=== PATIENT | male | born 1960 | race Caucasian/White ===

== ENCOUNTER 2022-10-13 13:00 | Outpatient (OUT) | payer BC, SELFPAY | END 2022-10-13 13:01 | disposition home or self-care (01) | LOC: PST 10-21 18:45 | PROVIDERS: PCP Family Medicine; Visit Provider Surgery | DX: Z01.818 Encounter for other preprocedural examination (principal); Z86.010 Personal history of colon polyps ==

== ENCOUNTER 2022-10-20 07:53 | Day surgery (SDC) | payer BC, SELFPAY ==
--- NOTE | 2022-10-20 | OP_ITS ---
OPERATION DATE: ??10/20/2022 PREOPERATIVE DIAGNOSIS:? Personal history of colon polyps. POSTOPERATIVE DIAGNOSIS:? Ascending and sigmoid colon polyps. PROCEDURE:? Colonoscopy to cecum with cold snare and hot snare polypectomy, each x1. SURGEON:? Satnam Capps M.D. ANESTHESIA:? Monitored anesthesia care. ESTIMATED BLOOD LOSS:? Less than 1 mL. INDICATIONS AND CONSENT:? 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 He was noted to have a recurrence of a small polyp one year ago, and now presents for surveillance colonoscopy.? Indications, risks, benefits, alternatives of proceeding with colonoscopy were explained extensively to the patient, including the risks of bleeding, colon perforation or anesthetic complications.? All of his questions were answered.? Informed consent was obtained. PROCEDURE:? Patient brought to the operating room, placed in the left lateral decubitus position.? Monitored anesthesia care was provided.? Rectal exam was performed which showed no masses or blood.? The scope was inserted into the anal canal.? Under direct visualization was advanced.? It was advanced to the cecum where cecal markings were clearly identified.? There was noted to be a good prep.? Upon withdrawal of the scope, mucosal surfaces were carefully examined.? Within the ascending colon, there was noted to be a 3 mm sessile polyp that was removed with cold snare with good hemostasis.? It appeared to be sucked up in the scoped; however, it was not retrieved.? Upon withdrawal of the scope, mucosal surfaces were carefully examined.? There were rare sigmoid diverticula.? Within the distal sigmoid, there was noted to be a 5 mm sessile polyp that was removed with hot snare with electrocautery with good hemostasis.? This polyp was retrieved.? Distal to that, at the area of the rectosigmoid junction, the tattooing could be seen and there was no evidence of recurrent polyps in that area.? The scope was retroflexed in the anal canal.? There was no significant hemorrhoidal disease.? The scope was then withdrawn.? Patient tolerated procedure well, was sent to recovery room in good condition. Follow up colonoscopy will likely be in three years, but will depend on pathology results. CC:? Patient?s family physician NELLI
[2022-10-20 08:12] VITALS: BP 129/62; PULSE 67; RESP 18; TEMP 36; O2SAT 96
[2022-10-20] MEDS: LACTATED RINGER'S SOLUTION 1,000 ML 50 ML IV (09:18)
[2022-10-20 09:47] VITALS: BP 126/75; PULSE 64; RESP 18; TEMP 36.2; O2SAT 99
[2022-10-20 10:02] VITALS: BP 137/67; PULSE 67; RESP 16; O2SAT 96
[2022-10-20 10:17] VITALS: BP 124/69; PULSE 69; RESP 16; O2SAT 98
== END 2022-10-20 10:17 | disposition home or self-care (01) ==
PROVIDERS: PCP Family Medicine; Visit Provider Surgery
PROC: (CPT 45385; principal; 2022-10-20 10:00)
DX: K63.5 Polyp of colon (principal); Z86.010 Personal history of colon polyps; I48.91 Unspecified atrial fibrillation; Z79.01 Long term (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; I10 Essential (primary) hypertension; E66.01 Morbid (severe) obesity due to excess calories; G47.30 Sleep apnea, unspecified; Z80.0 Family history of malignant neoplasm of digestive organs; Z79.84 Long term (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 oral hypoglycemic drugs; Z87.891 Personal history of nicotine dependence; Z68.35 Body mass index [BMI] 35.0-35.9, adult
CPT/HCPCS: 45385; 88305; J2704

== ENCOUNTER 2023-02-12 08:41 | Outpatient (OUT) | payer BC, SELFPAY ==
[2023-02-12 10:32] LABS: Estimated Average Glucose 134 mg/dL; Glycohemoglobin A1C 6.3 % (4.5-6.2)
== END 2023-02-12 08:42 | disposition home or self-care (01) ==
LOC: LAB 08:41
PROVIDERS: PCP Family Medicine; Visit Provider Family Medicine
DX: E11.65 Type 2 diabetes mellitus with hyperglycemia (principal)
CPT/HCPCS: 36415; 83036

== ENCOUNTER 2023-08-27 07:44 | Outpatient (OUT) | payer BC, SELFPAY ==
--- OUTSIDE RECORDS SUMMARY | 2023-08-27 07:47 | XMS_ITS | CCD ---
Author Organization [facility] Care Team Providers Care Hospice Rn Name Role Phone UNKNOWN, PROVIDER Admitting Unavailable UNKNOWN, PROVIDER Attending Unavailable MICHAEL SPANGLER Referring Unavailable CRISSERELidna, MICHAEL Primary Care Unavailable Donavon Morales Unavailable [phone] Michael Spangler Primary Care Provider CRYS, MICHAEL Primary Care Physician Donavon Morales Unavailable [phone] Michael Spangler Primary Care Provider SHAIKH Selwyn MERCEDES Admitting Unavailable SHAIKH MERCEDES H Attending Unavailable NADERELinda, DR MICHAEL Gregory Primary Care Unavailable NILL, DR OCAMPO Admitting Unavailable NILL, DR OCAMPO Attending Unavailable NADERER, DR MICHAEL Gregory Primary Care Unavailable NILL, DR OCAMPO Admitting Unavailable NILL, DR OCAMPO Attending Unavailable NADERER, DR MICHAEL Gregory Primary Care Unavailable NILL, DR OCAMPO Consulting Unavailable TRUDY ARREDONDO Consulting Unavailable RADHA CASTANO Consulting Unavailable NILL, DR OCAMPO Admitting Unavailable NILL, DR OCAMPO Attending Unavailable NADERER, DR MICHAEL Gregory Primary Care Unavailable NADERER, DR MICHAEL Gregory Admitting Unavailable NADERER, DR MICHAEL Gregory Attending Unavailable NADERER, DR MICHAEL Gregory Primary Care Unavailable NADERER, DR MICHAEL Gregory Consulting Unavailable MAGO, H Admitting Unavailable MAGO, SHAIKH Selwyn Attending Unavailable NADERER, DR MICHAEL Gregory Primary Care Unavailable WEST, DR EMBER Brambila Consulting Unavailable LUNDBERGCLAUDIO Consulting Unavailable MAGO, H Consulting Unavailable NADERER, DR MICHAEL Gregory Admitting Unavailable NADERER, DR MICHAEL Gregory Attending Unavailable NADERER, DR MICHAEL Gregory Primary Care Unavailable NADERER, DR MICHAEL Gregory Consulting Unavailable Donavon Morales Unavailable Michael Spangler Primary Care Provider BLAYNE GUERIN Attending Unavailable Terrence CAPPS Attending Unavailable Terrence CAPPS Attending Unavailable Terrence CAPPS Attending Unavailable Donavon Morales MD Unavailable [phone] MICHAEL SPANGLER Primary Care Unavailable JESSICA WINTER Attending Unavailable MICHAEL SPANGLER Primary Care Unavailable Michael Spangler Primary Care Provider MICHAEL SPANGLER Attending Unavailable RADHA BUTLER Attending Unavailable Allergies Allergy Classification Reported Allergen(s) Allergy Type Date of Onset Reaction(s) Facility (2 sources) Penicillins; 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: [PENICILLINS] Drug allergy (disorder) 8 [facility] Repository (5 sources) Penicillin; 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: [penicillin] Drug Allergy 9 Unknown (qualifier value) General Surgery K[facility] Medications Current Medications Medication Drug Class(es) Dates Sig (Normalized) Sig (Original) apixaban 5 mg oral tablet (20 sources) Factor Xa Inhibitor Start: 08-23-2022 End: 08-08-2023 take 1 tablet by mouth twice daily ELIQUIS 5 mg tab(s) take 1 tablet by mouth twice a day 180 tablet 3 08/08/2023 Active Start: 09-03-2020 End: 09-21-2021 take 1 tablet by mouth twice daily ELIQUIS 5 mg tab(s) TAKE 1 TABLET BY MOUTH TWICE A DAY 180 tablet 3 09/21/2021 Active Comment on above: Take 1 tablet by bryon th twice daily. TAKE 1 TABLET BY BRYON TH TWICE A DAY cholecalciferol 0.05 mg oral tablet (17 sources) Vitamin D take 1 tablet by mouth once daily cholecalciferol (VITAMIN D3) 50 mcg (2,000 unit) tablet Take 2,000 Units by mouth once daily. 0 Active Comment on above: Take 2,000 Units by mouth once daily. hydrOXYzine hydrochloride 25 mg oral tablet (3 sources) Antihistamine take 1 tablet by mouth every six hours as needed hydrOXYzine HCl (ATARAX) 25 mg tablet Take 25 mg by mouth four times a day as needed. 0 Active Comment on above: Take 25 mg by mouth four times a day as needed. lisinopril 20 mg oral tablet (19 sources) Angiotensin Converting Enzyme Inhibitor Start: 021 take 1 tablet by mouth twice daily lisinopril 20 mg Tab TAKE 1 TABLET BY MOUTH TWICE A DAY Start Date: 09/03/20 Status: Ordered Comment on above: Take 20 mg by mouth twice daily. metFORMIN hydrochloride 500 mg oral tablet (5 sources) Biguanide take 1 tablet by mouth twice daily at mealtime metFORMIN (GLUCOPHAGE) 500 mg tablet Take 500 mg by mouth two times a day with meals. 0 Active take 1 tablet by bryon th once daily at breakfast metFORMIN (GLUCOPHAGE) 500 mg tablet Jayson e 500 mg by mouth daily with breakfast. 0 Active Comment on above: Take 500 mg by mouth daily with breakfast. Take 500 mg by mouth two times a day with meals. 24 hr metoprolol succinate 25 mg extended release oral tablet (20 sources) beta-Adrenergic Bhavani Start: 01-17-2023 End: 01-17-2024 take 1 tablet by mouth twice daily metoprolol succinate ER (TOPROL XL) 25 mg 24 hr tablet Take 1 tablet by mouth two times a day. 180 tablet 3 01/17/2023 01/17/2024 Active Start: 01-13-2021 End: 01-14-2023 take 1 tablet by mouth twice daily metoprolol succinate ER (TOPROL XL) 25 mg 24 hr tablet TAKE 1 TABLET BY MOUTH TWICE A DAY 180 tablet 3 01/08/2022 01/14/2023 Discontinued Start: 09-03-2020 take 1 tablet by bryon once daily metoprolol 25 mg ER Tab 25 mg = 1 tab(s), Oral, Daily, # 30 tab(s), Refills(s) 0 Start Date: 09/03/20 Status: Ordered Comment on above: Take 1 tablet by bryon th twice daily. TAKE 1 TABLET BY BRYON TH TWICE A DAY Take 1 tablet by bryon th two times a day. OZEMPIC 1 mg/dose (4 mg/3 mL) pen (3 sources) Start: 02-14-2023 OZEMPIC 1 mg/dose (4 mg/3 mL) pen one time a week. 0 02/14/2023 Active Comment on above: one time a week. Vitamin D3 2000 intl units oral tablet (2 sources) Start: 09-03-2020 take 1 tablet by mouth once daily Vitamin D3 2000 intl units oral tablet TAKE 1 TABLET BY MOUTH EVERY DAY Start Date: 09/03/20 Status: Ordered Completed/Discontinued Medications Medication Drug Class(es) Dates Sig (Normalized) Sig (Original) pantoprazole 40 mg delayed release oral tablet (1 source) Proton Pump Inhibitor Start: 03-20-2021 End: 06-23-2021 take 1 tablet by mouth once daily, then take 6 tablets by mouth in the morning pantoprazole DR (PROTONIX) 40 mg tablet Take 1 tablet by mouth DAILY (6 AM). 30 tablet 0 03/20/2021 06/23/2021 Discontinued (Course of therapy completed) Comment on above: Take 1 tablet by bryon th DAILY (6 AM). perflutren lipid microspheres 1.3 mL in NaCl (PF) 0.9% 10 mL injection (DEFINITY) (20 sources) Start: 06-23-2021 End: 03-11-2022 perflutren lipid microspheres 1.3 mL in NaCl (PF) 0.9% 10 mL injection (DEFINITY) Start: 06-23-2021 End: 09-22-2022 perflutren lipid microsphere s 1.3 mL in NaCl (PF) 0.9% 10 mL injection (DEFINITY) Start: 03-19-2021 End: 03-11-2022 perflutren lipid microsphere s 1.3 mL in NaCl (PF) 0.9% 10 mL injection (DEFINITY) Start: 03-19-2021 End: 06-18-2022 perflutren lipid microsphere s 1.3 mL in NaCl (PF) 0.9% 10 mL injection (DEFINITY) Start: 12-05-2020 End: 06-23-2021 perflutren lipid microsphere s 1.3 mL in NaCl (PF) 0.9% 10 mL injection (DEFINITY) Start: 06-03-2020 End: 06-23-2021 perflutren lipid microsphere s 1.3 mL in NaCl (PF) 0.9% 10 mL injection (DEFINITY) 125 ml sodium chloride 9 mg/ ml prefilled syringe (20 sources) Start: 06-03-2020 End: 09-22-2022 sodium chloride 0.9 % (flush ) 10 mL (BD POSIFLUSH) Problems Active Problems Problem Classification Problem Date Documented Date Episodic/Chronic Cardiac dysrhythmias (20 sources) Atrial fibrillation; 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: [Unspecified atrial fibrillation] Onset: 08-14-2018 08-17-2018 Chronic Diabetes mellitus without complication (4 sources) Prediabetes; 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: [PREDIABETES] Onset: 02-16-2022 Episodic Essential hypertension (2 sources) Essential (primary) hypertension; 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: [Essential hypertension] Onset: 10-12-2021 03-08-2023 Chronic Nutritional deficiencies (1 source) Vitamin D deficiency, unspecified; 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: [VITAMIN D DEFICIENCY UNSPECIFIED] Onset: 08-20-2021 Chronic Other aftercare (3 sources) Long-term current use of anticoagulant; 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: [retirement (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] Onset: 09-01-2021 Episodic Other and ill-defined heart disease (18 sources) Thrombus of left atrium; 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: [Intracardiac thrombosis, not elsewhere classified] Onset: 03-04-2018 11-03-2018 Chronic Other and unspecified benign neoplasm (2 sources) Benign neoplasm of colon; 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: [Benign neoplasm of colon, unspecified] Onset: 09-01-2021 Episodic Other and unspecified benign neoplasm (2 sources) Adenomatous polyp of colon 10-07-2020 Episodic Other and unspecified benign neoplasm (2 sources) Benign neoplasm of ascending colon 10-07-2020 Episodic Other and unspecified benign neoplasm (2 sources) Benign neoplasm of descending colon 10-07-2020 Episodic Other nutritional; endocrine; and metabolic disorders (2 sources) Body mass index 30+ - obesity 09-03-2020 Chronic Residual codes; unclassified (17 sources) Sleep apnea; 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: [Sleep apnea, unspecified] Onset: 08-14-2018 08-17-2018 Chronic Residual codes; unclassified (1 source) Obstructive sleep apnea syndrome; 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: [Obstructive sleep apnea (adult) (pediatric)] Chronic Residual codes; unclassified (1 source) Sleep apnea, unspecified; 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: [SLEEP APNEA UNSPECIFIED] Onset: 10-12-2021 Chronic Residual codes; unclassified (2 sources) Obstructive sleep apnea (adult) (pediatric); 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: [Obstructive sleep apnea (adult) (pediatric)] Onset: 05-27-2022 Chronic Spondylosis; intervertebral disc disorders; other back problems (1 source) Other spondylosis with radiculopathy, lumbar region; 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: [OTH SPONDYLS RADICULOPATHY LUMB RGN] Onset: 10-07-2021 Chronic Unclassified (1 source) LOW BACK PAIN, UNSPECIFIED; 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: [LOW BACK PAIN, UNSPECIFIED] Onset: 10-13-2021 Unclassified (1 source) Other persistent atrial fibrillation; 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: [Persistent atrial fibrillation (HCC)] Onset: 08-17-2018 Past or Other Problems Problem Classification Problem Date Documented Da te Episodic/Chronic Other aftercare (1 source) retirement (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; 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: [SNF CURRNT USE ANTICOAGULANTS] Onset: 10-12-2021 Episodic Other and unspecified benign neoplasm (4 sources) Personal history of colonic polyps; 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: [PERSONAL HISTORY OF COLONIC POLYPS] Onset: 10-07-2021 Episodic Other and unspecified benign neoplasm (1 source) Polyp of colon; 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: [POLYP OF COLON] Onset: 10-12-2021 Episodic Other and unspecified benign neoplasm (1 source) Benign neoplasm of sigmoid colon; 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: [BENIGN NEOPLASM OF SIGMOID COLON] Onset: 10-12-2021 Episodic Other screening for suspected conditions (not mental disorders or infectious disease) (8 sources) Stool DNA-based colorectal cancer screening positive; 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: [Impaired left ventricular function] Onset: 08-20-2021 09-03-2020 Episodic Screening and history of mental health and substance abuse codes (1 source) Personal history of nicotine dependence; 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: [PERSONAL HISTORY OF NICOTINE DEPEND] Onset: 10-12-2021 Episodic Spondylosis; intervertebral disc disorders; other back problems (4 sources) Radiculopathy, site unspecified; 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: [RADICULOPATHY SITE UNSPECIFIED] Onset: 10-12-2021 Episodic Results Test Name Value Interpretation Reference Range Facility [facility] 03-08-2023 CNOV Office Visit (CARDMN ) ABBEY ROBERT ([id number]) 1960 M Date Time Provider Department 03/08/23 10:30 AM JESSICA WINTER During your visit today, we recorded the following information about you: Pulse Blood pressure Weight Height 70/minute 136/66 110.7 kg 1.803 m Jessica Winter MD 03/08/2023 11:14 AM [facility] [place] Josi Apodaca Department of Cardiovascular Medicine SECTION OF CARDIAC PACING and ELECTROPHYSIOLOGY OUTPATIENT VISIT DATE March 08, 2023 OUTPATIENT VISIT TYPE ESTABLISHED PRIMARY CARE PHYSICIAN: Michael Spangler MD ([facility]) [address] [place] [address] REFERRING PHYSICIAN: No referring provider defined for this encounter. CHIEF COMPLAINT: AF HISTORY OF PRESENT ILLNESS/NURSING INTAKE HISTORY: Mr. Robert is a 62 year old male who presents today for follow-up visit for atrial fibrillation. He has a history of persistent AF refractory to treatment with dofetilide with his first PVI in November 2018. He developed recurrence of his arrhythmia in November 2020. He had redo-PVI as part of the MAP AF in March 2021. He is s/p DCC 04/09/21. He has done well since the ablation without any recurrence of his arrhythmia since his cardioversion in 2021. He was last seen in in March of 2022 and denies any significant change since that time. He continues to do well without any recurrence. He remains on Toprol and Eliquis. His last monitor in 2021 showed NSR with brief runs of an SVT. Infrequent ectopy. 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 Sleep apnea wears CPAP PAST SURGICAL HISTORY Procedure Laterality Date AFIB ABLATION/PULM VEIN ISOLATION 11/13/2018 CARDIOVERSION 5 or 6 in lifetime TONSILLECTOMY HX SOCIAL HISTORY Social History Tobacco Use Smoking status: Former Types: Cigarettes Quit date: 2017 Years since quittin.9 Smokeless tobacco: Never Vaping Use Vaping Use: Never used Substance Use Topics Alcohol use: Yes Comment: rarely Drug use: Not Currently FAMILY HISTORY Problem Relation Age of Onset Heart Mother AF Hypertension Mother other (atrial fibrillation) Mother Coronary Artery Disease Father s/p CABG Heart Sister MVP Heart disease Brother Diabetes Brother Hypertension Brother ALLERGIES: ALLERGIES Allergen Reactions Penicillin Unknown MEDICATIONS: OZEMPIC 1 mg/dose (4 mg/3 mL) pen one time a week. hydrOXYzine HCl (ATARAX) 25 mg tablet Take 25 mg by mouth four times a day as needed. metoprolol succinate ER (TOPROL XL) 25 mg 24 hr tablet Take 1 tablet by mouth two times a day. apixaban (ELIQUIS) 5 mg tab(s) Take 1 tablet by mouth twice daily. metFORMIN (GLUCOPHAGE) 500 mg tablet Take 500 mg by mouth two times a day with meals. cholecalciferol (VITAMIN D3) 50 mcg (2,000 unit) tablet Take 2,000 Units by mouth once daily. lisinopril (ZESTRIL, PRINIVIL) 20 mg tablet Take 20 mg by mouth twice daily. Miri Cunha RN I have seen and evaluated the patient and confirmed the findings of the Physician Apron Trimmer/Nurse Practitioner or fellow/resident above, with the addition of appropriate modifications and corrections. I have personally formulated an assessment and plan of management which was discussed with the patient and the clinical team. PHYSICAL EXAMINATION: BP 136/66 Pulse 70 Ht 180.3 cm (5' 11 ) Wt 110.7 kg (244 lb) BMI 34.03 kg/m? General appearance: well appearing, in no acute distress, alert H+ENT: no JVP, no goiter apparent, no icterus Lungs: Lungs clear to auscultation, No wheezing or rhonchi Heart: RRR, no murmur, gallop, or rubs. No ectopy. Abdomen: Abdomen soft, non-tender. Extremities: no edema Neuro: Grossly intact. Pulses: present bilaterally Skin:no apparent skin break CARDIOVASCULAR MEDICINE TESTING: EKG today: IMPRESSION: CHIEF COMPLAINT: AF HISTORY OF PRESENT ILLNESS/ PLAN AND RECOMMENDATIONS: Mr. Robert is a 62 year old male who presents today for follow-up visit for atrial fibrillation. He has a history of persistent AF refractory to treatment with dofetilide with his first PVI in November 2018. He developed recurrence of his arrhythmia in November 2020. He had redo-PVI as part of the MAP AF in March 2021. He is s/p DCC 04/09/21. He has done well since the ablation without any recurrence of his arrhythmia since his cardioversion in 2021. He was last seen in in March of 2022 and denies any significant change since that time. He continues to do well without any recurrence. He remains on Toprol and Eliquis. His last monitor in 2021 showed NSR with brief runs of an SVT. Infrequent ectopy. Continue (more content not included)... Normal [facility] ECG COMPLETEon 03-08-2023 ECG COMPLETE Ventricular Rate : 7 0 BPM Atrial Rate : 70 BPM P-R Interval : 152 ms QRS Duration : 100 ms Q-T Interval : 386 ms QTC Calculation(Bazett) : 416 ms Calculated P [place] : -92 degrees Calculated R [place] : 18 degrees Calculated T [place] : 30 degrees UNUSUAL P AXIS, POSSIBLE ECTOPIC ATRIAL RHYTHM ABNORMAL ECG Confirmed by fellow SANTOS BELLA MD ([id number]) on 03/21/2023 10:43:02 AM Confirmed by MD KARLA, PhD, KATHERINE [id number]) on 03/21/2023 1:43:16 PM NAME : ABBEY ROBERT PID : [id number] : 1960 Gender : Male Race : ORD : [id number] Procedure Date : Mar 08 2023 09:28:38 Edit Date : Mar 21 2023 13:43:17 Diagnosis: UNUSUAL P AXIS, POSSIBLE ECTOPIC ATRIAL RHYTHM ABNORMAL ECG Confirmed by fellow SANTOS BELLA MD ([id number]) on 03/21/2023 10:43:02 AM Confirmed by MD KARLA, PhD, KATHERINE ([id number]) on 03/21/2023 1:43:16 PM Test Reason : Location : 314 : J14 j1-4 Overread By : MD KARLA, PhD,KATHERINE Edited By : MD KARLA, PhD,KATHERINE Referred By : , Acquired by : MAXI LOCK Normal [facility] Reminderson 11-17-2022 Reminders - From: Taylor Bonner LPN To: GSN - Clinical; Sent: 11/17/2022 09:49:20 EDT Show up: 09/21/2027 07:00:00 EDT Subject: colonoscopy recall Due Date/Time: 10/21/2027 07:00:00 EDT Reminder/Recall Patient due for surveillance colonoscopy 10/21/2027. [facility] Pathology Noteon 10-25-2022 Pathology Note [id number]#1.0 0CD:127 [facility] Outside Colonoscopyon 2022 Outside Colonoscopy [id number]#1.0 0CD:127 [facility] Pre-Certification Formon Pre-Certification Form [id number]. 00CD:127 [facility] Consent for Procedure/Surger yon 09-23-2022 Consent for Procedure/Surgery [id number] CD:127 [facility] Ambulatory Visit Summaryon 0 09-22-2022 Ambulatory Visit Summary ABBEY ROBERT :1960 Visit Date:09/22/2022 Ambulatory Visit Instructions Your Care Team Attending Physician - BRIGETTE KNOWLES, Terrence Mckeon Primary Care Physician - CRYS KNOWLES, MICHAEL This Is Your Medications List Contact prescribing physician if questions or concerns apixaban (Eliquis 5 mg oral tablet) cholecalciferol (Vitamin D3 2000 intl units oral tablet) lisinopril (lisinopril 20 mg Tab) metformin (MetFORMIN (Eqv-Glucophage XR) 500 mg oral tablet, extended release) metoprolol (metoprolol 25 mg ER Tab) Procedures Performed Sigmoidoscopy (10/07/2021), Colonoscopy (09/2020), Cardioversion, Catheter ablation of tissue of heart, Tonsillectomy. Discharge Vitals Heart Rate (Peripheral) 70 Respiratory Rate 16 Blood Pressure 126/80 Height 180.3 cm Height 71 in Weight 116.3 kg Weight 255.86 lb BMI 35.78 Medications What How Much When Instructions Unchanged apixaban (Eliquis 5 mg oral tablet) TAKE 1 TABLET BY MOUTH TWICE A DAY Contact prescribing physician if questions or concerns Unchanged cholecalciferol (Vitamin D3 2000 intl units oral tablet) TAKE 1 TABLET BY MOUTH EVERY DAY Contact prescribing physician if questions or concerns Unchanged lisinopril (lisinopril 20 mg Tab) TAKE 1 TABLET BY MOUTH TWICE A DAY Contact prescribing physician if questions or concerns Unchanged metformin (MetFORMIN (Eqv-Glucophage XR) 500 mg oral tablet, extended release) 1 Tablets By Mouth 2 times a day Contact prescribing physician if questions or concerns Unchanged metoprolol (metoprolol 25 mg ER Tab) 1 Tablets By Mouth Every day Contact prescribing physician if questions or concerns Allergies penicillin (Unknown) Problems Ongoing - Any problem that you are currently receiving treatment for. Atrial fibrillation BMI 35.0-35.9,adult Chronic anticoagulation HTN (hypertension) Morbid obesity Positive colorectal cancer screening using Cologuard test Sleep apnea Tubular adenoma of colon Tubular adenoma of colon Tubulovillous adenoma of colon Normal [facility] [place] Follow-Upon 05-28-2022 Follow-Up [id number] Abbey Robert 1960 Date Provider Department Center 05/28/2022 [id number] GUERIN [facility] SLEEP [facility] Family History Problem Relation Age of Onset Heart disease Mother Diabetes Father Hypothyroidism Father Heart disease Father COPD Brother Diabetes Brother Family Status - Relation Status Age at Mother Father Brother Level of Service:37117 UT OFFICE/OUTPATIENT ESTABLISHED [facility] 10-19 MIN Reason for Visit and Comments: Follow-up [967128] - Need supplies Sleep Apnea [348] Normal [facility] GLYCOHEMOGLOBIN A1Con 2021 ADA RECOMMENDATION SEE BELOW Normal [facility] Comment on above: Result Comment: ADA RECOMMENDED LIMIT 4.0 - 6.0 ADA THERAPEUTIC TARGET < 7.0 ACTION SUGGESTED > 7.0 Performed By: #### A 1C #### [facility] [address] [address] [address] Neelima Bansal Glucose [Mass/Vol] 186 mg/dL Normal [facility] Comment on above: Performed By: #### A 1C #### [facility] [address] [place], [place] [address] Dr. Neelima Bansal HbA1c (Bld) [Mass fraction] 8.1 % Critically high 4.5-6.2 [facility] [place] [facility] Comment on above: Performed By: #### A 1C #### [facility] [address] [place] [address] Dr. Neelima Bansal XR LSPINE 2_3 VIEWSon 2021 XR LSPINE 2_3 VIEWS EXAMINATION: XR LSPI NE 2_3 VIEWS HISTORY: Nerve root disorder COMPARISON: 03/08/2020 FINDINGS: BONES: Normal alignment of the lumbar spine with no spondylolisthesis. Mild anterior wedging T12 and L1, stable. Moderate to severe degenerative spondylosis, progressed. Mild to moderate facet osteoarthropathy DISC SPACES: Normal. No significant disc height narrowing, subluxation, or endplate abnormality. PARASPINOUS: Negative. No paraspinous abnormality is seen. OTHER: Negative. IMPRESSION: Progression of degenerative spondylosis Electronically authenticated by: EMBER LOPEZ Date: 2021-10-01 21:09 Normal [facility] [place] [facility] CBC AUTO DIFFon 08-17-2021 BASO # 0.0 103/ul Normal 0.0-0.1 [facility] [place] [facility] Comment on above: Performed By: #### A 1C #### [facility] [address] [place] [address] Dr. Neelima Bansal Basophils/100 WBC (Bld) 0.6 % Normal 0.2-2.0 [facility] [place] [facility] Comment on above: Performed By: #### A 1C #### [facility] [address] [place] [address] Dr. Neelima Bansal EO # 0.2 103/ul Normal 0.0-0.7 [facility] [place] [facility] Comment on above: Performed By: #### A 1C #### [facility] [address] [place] [address] Dr. Neelima Bansal Eosinophils/100 WBC (Bld) 2.3 % Normal 0.9-7.0 [facility] [place] [facility] Comment on above: Performed By: #### A 1C #### [facility] [address] [place] [address] Dr. Neelima Bansal Erythrocyte distribution width (RBC) [Ratio] 13.6 % Normal 11.0-15.0 [facility] [place] [facility] Comment on above: Performed By: #### A 1C #### [facility] [address] [place] [address] Dr. Neelima Bansal Hematocrit (Bld) [Volume fraction] 44.6 % Normal 42.0-54.0 [facility] Comment on above: Performed By: #### A 1C #### [facility] [address] [place] [address] Dr. Neelima Bansal Hemoglobin (Bld) [Mass/Vol] 14.6 g/dL Normal 14.0-18.0 [facility] Comment on above: Performed By: #### A 1C #### [facility] [address] [place] [address] Dr. Neelima Bansal IG # 0.01 10e3/ul Normal 0.00-0.03 [facility] Comment on above: Performed By: #### A 1C #### [facility] [address] [place] [address] Dr. Neelima Bansal IG % 0.2 % Normal 0.0-0.5 [facility] Comment on above: Performed By: #### A 1C #### [facility] [address] [place] [address] Dr. Neelima Bansal LYMPH # 1.7 103/ul Normal 1.2-3.8 [facility] Comment on above: Performed By: #### A 1C #### [facility] [address] [place] [address] Dr. Neelima Bansal Lymphocytes/100 WBC (Bld) 26.9 % Normal 20.5-60.0 [facility] Comment on above: Performed By: #### A 1C #### [facility] [address] [place] [address] Dr. Neelima Bansal MANUAL DIFF REQ NO Normal [facility] Comment on above: Performed By: #### A 1C #### [facility] [address] [place] [address] Dr. Neelima Bansal MCH (RBC) [Entitic mass] 28.2 pg Normal 25.9-34.0 [facility] Comment on above: Performed By: #### A 1C #### [facility] [address] [place] [address] Dr. Neelima Bansal MCHC (RBC) [Mass/Vol] 32.7 g/dL Normal 29.9-35.2 [facility] Comment on above: Performed By: #### A 1C #### [facility] [address] [place] [address] Dr. Neelima Bansal MCV (RBC) [Entitic vol] 86.1 fL Normal 80.0-94.0 [facility] Comment on above: Performed By: #### A 1C #### [facility] [address] [place] [address] Dr. Neelima Bansal MONO # 0.6 103/ul Normal 0.3-0.8 [facility] Comment on above: Performed By: #### A 1C #### [facility] [address] [place] [address] Dr. Neelima Bansal Monocytes/100 WBC (Bld) 9.8 % Normal 1.7-12.0 [facility] Comment on above: Performed By: #### A 1C #### [facility] [address] [place] [address] Dr. Neelima Bansal NEUT # 3.9 103/ul Normal 1.4-6.5 [facility] Comment on above: Performed By: #### A 1C #### [facility] [address] [place] [address] Dr. Neelima Bansal Neutrophils/100 WBC (Bld) 60.2 % Normal 43.0-75.0 [facility] Comment on above: Performed By: #### A 1C #### [facility] [address] [place] [address] Dr. Neelima Bansal Platelet mean volume (Bld) [Entitic vol] 9.4 fL Critically low 9.5-13.5 [facility] Comment on above: Performed By: #### A 1C #### [facility] [address] [place] [address] Dr. Neelima Bansal PLT 198 103/ul Normal 150-450 [facility] Comment on above: Performed By: #### A 1C #### [facility] [address] [place] [address] Dr. Neelima Bansal RBC 5.18 106/ul Normal 4.70-6.10 [facility] Comment on above: Performed By: #### A 1C #### [facility] [address] [place] [address] Dr. Neelima Bansal WBC 6.4 103/ul Normal 4.0-11.0 [facility] Comment on above: Performed By: #### A 1C #### [facility] [address] [address] [address] Neelima Bansal GLYCOHEMOGLOBIN A1Con 2021 ADA RECOMMENDATION SEE BELOW Normal [facility] Comment on above: Result Comment: ADA RECOMMENDED LIMIT 4.0 - 6.0 ADA THERAPEUTIC TARGET < 7.0 ACTION SUGGESTED > 7.0 Performed By: #### A 1C #### [facility] [address] [place] [address] Dr. Neelima Bansal Glucose [Mass/Vol] 146 mg/dL Normal [facility] Comment on above: Performed By: #### A 1C #### [facility] [address] [place] [address] Dr. Neelima Bansal HbA1c (Bld) [Mass fraction] 6.7 % Critically high 4.5-6.2 [facility] Comment on above: Performed By: #### A 1C #### [facility] [address] [place] [address] Dr. Neelima Bansal LIPID PROFILEon 08-17-2021 CHOL-HDL RATIO NORM SEE BELOW Normal [facility] Comment on above: Result Comment: 3.3 - 4.4 LOW RISK 4.4 - 7.1 AVERAGE RISK 7.1 - 11.0 MODERATE RISK >11.0 HIGH RISK Performed By: #### L IVER, LIPID, BMP, TSH #### [facility] [address] [address] [address] Neelima Bansal Cholesterol [Mass/Vol] 161 mg/dL Normal <=200 [facility] Comment on above: Performed By: #### L IVER, LIPID, BMP, TSH #### [facility] [address] [address] [address] Neelima Bansal Cholesterol in HDL [Mass/Vol] 29 mg/dL Critically low 40-60 [facility] Comment on above: Performed By: #### L IVER, LIPID, BMP, TSH #### [facility] [address] [address] [address] Neelima Bansal Cholesterol in LDL [Mass/Vol] 98.8 mg/dL Normal [facility] Comment on above: Performed By: #### L IVER, LIPID, BMP, TSH #### [facility] [address] [address] [address] Neelima Bansal Cholesterol.total/Ch olesterol in HDL [Mass ratio] 5.6 {ratio} Normal [facility] Comment on above: Performed By: #### L IVER, LIPID, BMP, TSH #### [facility] [address] [place] [address] Dr. Neelima Bansal HDL NORMAL > or = 60 mg/dl - LO W CARDIOVASCULAR RISK <40 mg/dl - HIGH CARDIOVASCULAR RISK Normal [facility] Comment on above: Performed By: #### L IVER, LIPID, BMP, TSH #### [facility] [address] [address] [address] Neelima Bansal LDL CALC NORMAL SEE BELOW Normal [facility] Comment on above: Result Comment: <100 mg/dl OPTIMAL 100 - 129 mg/dl NEAR OR ABOVE OPTIMAL 130 - 159 mg/dl BORDERLINE HIGH 160 - 189 mg/dl HIGH >190 mg/dl VERY HIGH Performed By: #### L IVER, LIPID, BMP, TSH #### [facility] [address] [place] [address] Dr. Neelima Bansal Triglyceride [Mass/Vol] 166 mg/dL Critically high <=150 [facility] Comment on above: Performed By: #### L IVER, LIPID, BMP, TSH #### [facility] [address] [place] [address] Dr. Neelima Bansal VLDL CALC 33.2 mg/dL Normal [facility] Comment on above: Performed By: #### L IVER, LIPID, BMP, TSH #### [facility] [address] [address] [address] Neelima Bansal LIVER PROFILEon 08-17-2021 Albumin [Mass/Vol] 3.7 g/dL Normal 3.4-5.0 [facility] Comment on above: Performed By: #### L IVER, LIPID, BMP, TSH #### [facility] [address] [place] [address] Dr. Neelima Bansal Albumin/Globulin [Mass ratio] 1.1 {ratio} Normal [facility] Comment on above: Performed By: #### L IVER, LIPID, BMP, TSH #### [facility] [address] [place] [address] Dr. Neelima Bansal ALP [Catalytic activity/Vol] 42 U/L Critically low 46-116 [facility] Comment on above: Performed By: #### L IVER, LIPID, BMP, TSH #### [facility] [address] [place] [address] Dr. Neelima Bansal ALT [Catalytic activity/Vol] 58 U/L Normal 16-63 [facility] Comment on above: Performed By: #### L IVER, LIPID, BMP, TSH #### [facility] [address] [place] [address] Dr. Neelima Bansal AST [Catalytic activity/Vol] 24 U/L Normal 15-37 [facility] Comment on above: Performed By: #### L IVER, LIPID, BMP, TSH #### [facility] [address] [place] [address] Dr. Neelima Bansal BILI, CONJUGATED 0.1 mg/dL Normal 0.0-0.2 [facility] Comment on above: Performed By: #### L IVER, LIPID, BMP, TSH #### [facility] [address] [place] [address] Dr. Neelima Bansal Bilirubin [Mass/Vol] 0.4 mg/dL Normal 0.2-1.0 [facility] Comment on above: Performed By: #### L IVER, LIPID, BMP, TSH #### [facility] [address] [place] [address] Dr. Neelima Bansal Globulin (S) [Mass/Vol] 3.4 g/dL Normal [facility] Comment on above: Performed By: #### L IVER, LIPID, BMP, TSH #### [facility] [address] [address] [address] Neelima Bansal Protein [Mass/Vol] 7.1 g/dL Normal 6.4-8.2 [facility] Comment on above: Performed By: #### L IVER, LIPID, BMP, TSH #### [facility] [address] [place] [address] Dr. Neelima Bansal PROF CHEM 8 (BAS METB)on Anion gap [Moles/Vol] 10.8 mmol/L Normal [facility] Comment on above: Performed By: #### L IVER, LIPID, BMP, TSH #### [facility] [address] [place] [address] Dr. Neelima Bansal Calcium [Mass/Vol] 8.5 mg/dL Normal 8.5-10.1 [facility] Comment on above: Performed By: #### L IVER, LIPID, BMP, TSH #### [facility] [address] [place] [address] Dr. Neelima Bansal Chloride [Moles/Vol] 104 mmol/L Normal 98-107 [facility] Comment on above: Performed By: #### L IVER, LIPID, BMP, TSH #### [facility] [address] [place] [address] Dr. Neelima Bansal CO2 [Moles/Vol] 29.4 mmol/L Normal 21.0-32.0 [facility] Comment on above: Performed By: #### L IVER, LIPID, BMP, TSH #### [facility] [address] [place] [address] Dr. Neelima Bansal Creatinine [Mass/Vol] 1.01 mg/dL Normal 0.70-1.30 [facility] Comment on above: Performed By: #### L IVER, LIPID, BMP, TSH #### [facility] [address] [place] [address] Dr. Neelima Bansal EGFR-AF [place] >60 Normal >=60 [facility] Comment on above: Performed By: #### L IVER, LIPID, BMP, TSH #### [facility] [address] [address] [address] Neelima Bansal EGFR-NON AF [place] >60 Normal >=60 [facility] Comment on above: Performed By: #### L IVER, LIPID, BMP, TSH #### [facility] [address] [address] [address] Neelima Bansal Glucose [Mass/Vol] 136 mg/dL Critically high 74-106 [facility] Comment on above: Performed By: #### L IVER, LIPID, BMP, TSH #### [facility] [address] [address] [address] Neelima Bansal Potassium [Moles/Vol] 4.2 mmol/L Normal 3.5-5.1 [facility] Comment on above: Performed By: #### L IVER, LIPID, BMP, TSH #### [facility] [address] [address] [address] Neelima Bansal Sodium [Moles/Vol] 140 mmol/L Normal 136-145 [facility] Comment on above: Performed By: #### L IVER, LIPID, BMP, TSH #### [facility] [address] [address] [address] Neelima Bansal Urea nitrogen [Mass/Vol] 21.0 mg/dL Critically high 7.0-18.0 [facility] Comment on above: Performed By: #### L IVER, LIPID, BMP, TSH #### [facility] [address] [address] [address] Neelima Bansal Urea nitrogen/Creatinine [Mass ratio] 20.8 mg/mg Normal [facility] Comment on above: Performed By: #### L IVER, LIPID, BMP, TSH #### [facility] [address] [address] [address] Neelima Bansal TSHon 08-17-2021 TSH 2.401 uIU/mL Normal 0.358-3.740 [facility] Comment on above: Performed By: #### L IVER, LIPID, BMP, TSH #### [facility] [address] [place] [address] Dr. Neelima Bansal TSH RANGE SEE BELOW Normal [facility] Comment on above: Result Comment: <0.3 4 UIU/ml HYPERTHYROID 0.34-5.60 UIU/ml EUTHYROID >5.60 UIU/ml HYPOTHYROID Performed By: #### L IVER, LIPID, BMP, TSH #### [facility] [address] [address] [address] Neelima Bansal VITAMIN D 25 OHon 08-17-2021 VIT D 25-OH 54.0 ng/mL Normal [facility] Comment on above: Performed By: #### P SASC, VITAD #### [facility] [address] [address] [address] Neelima Bansal VIT D RANGES SEE BELOW Normal [facility] Comment on above: Result Comment: <20 ng/mL Vit D deficient 20 - <30 ng/mL Vit D insufficient 30 - 100 ng/mL Vit D sufficient >100 ng/mL Potential Toxicity Performed By: #### P SASC, VITAD #### [facility] [address] [address] [address] Neelima Bansal Cardiovascular Lab Reporton 06-22-2018 Cardiovascular Lab Report [facility] Patient Name: [facility] MR #: [id number] Department of Physician: Imtiaz Haq M.D. Division of Service Date: 06/21/2018 Cardiology Birthdate: 1960 Adult Cardiovascular Room #: [address] [address] Cardiovascular Laboratory Report PROCEDURES: Transesophageal echocardiogram and cardioversion. INDICATION: Atrial fibrillation. FELLOW: Dr. Sanchez. PROCEDURE IN DETAIL: An informed consent was obtained from the patient after explaining indication, risks, benefits, and alternatives. The patient understood and agreed and signed the consent form. The patient was brought to the micro lab analyst and RYANN was performed under conscious sedation. The patient received a total of 9 mg of Versed and 100 mcg of fentanyl during the procedure. The RYANN did not show any thrombus in the left atrial appendage. Full RYANN reported elsewhere. After the RYANN, synchronized biphasic cardioversion was done with 360 joules of energy. The patient was successfully cardioverted to sinus rhythm as evident by the EKG done postprocedure. No complications throughout the procedure. Electronically Signed by: Imtiaz Haq M.D. 06/25/2018 11:57 A Imtiaz Haq M.D. I was present for the entire procedure. Date Dict: 06/21/2018/11:17 A/Krishna Sanchez MD Date Trans: 06/22/2018 03:57 A/lisa [id number] cc: Michael Spangler M.D. [address] [place] [address] [facility] Vital Signs Date Time Vital Sign Value Performing Clinician Faci lity 03-08-2023 10:47-0500 Body height 180.3 cm Jessica Winter MD Work Phone: [facility] 03-08-2023 10:47-0500 Body weight 110.68 kg Jessica Winter MD Work Phone: [facility] 03-08-2023 10:47-0500 Diastolic blood pressure 66 mm[Hg] Jessica Winter MD Work Phone: [facility] 03-08-2023 10:47-0500 Heart rate 70 /min Jessica Winter MD Work Phone: [facility] 03-08-2023 10:47-0500 Systolic blood pressure 136 mm[Hg] Jessica Winter MD Work Phone: [facility] 09-24-2021 15:23-0400 Body height 180.3 cm Jessica Winter MD Work Phone: [facility] 09-24-2021 15:23-0400 Body weight 113.4 kg Jessica Winter MD Work Phone: [facility] 09-24-2021 15:23-0400 Diastolic blood pressure 77 mm[Hg] Jessica Winter MD Work Phone: [facility] 09-24-2021 15:23-0400 Heart rate 60 /min Jessica Winter MD Work Phone: [facility] 09-24-2021 15:23-0400 Systolic blood pressure 143 mm[Hg] Jessica Winter MD Work Phone: [facility] 09-01-2021 14:02-0400 Blood Pressure Location Terrence NILL [facility] 09-01-2021 14:02-0400 Diastolic blood pressure 80 mm[Hg] [facility] 09-01-2021 14:02-0400 Heart rate 68 /min [facility] 09-01-2021 14:02-0400 Respiratory rate 16 /min Terrence NILL [facility] 09-01-2021 14:02-0400 Systolic blood pressure 132 mm[Hg] Terrence NILL [facility] 06-23-2021 10:36-0400 Body height 180.3 cm Jessica Winter MD Work Phone: [facility] 06-23-2021 10:36-0400 Body weight 115.67 kg Jessica Winter MD Work Phone: [facility] 06-23-2021 10:36-0400 Diastolic blood pressure 76 mm[Hg] Jessica Winter MD Work Phone: [facility] 06-23-2021 10:36-0400 Heart rate 56 /min Jessica Winter MD Work Phone: [facility] 06-23-2021 10:36-6000 Systolic blood pressure 128 mm[Hg] Jessica Winter MD Work Phone: [facility] Encounters Encounter Date Encounter Type Care Provider Facility Start: 08-22-2023 End: 08-22-2023 ambulatory RADHA BUTLER Not Available Start: 08-10-2023 End: 08-10-2023 ambulatory MICHAEL SPANGLER Not Available Start: 08-06-2023 Refill Pravin Link MD Work Phone: [facility] Comment on above: Refill Request Start: 05-20-2023 ambulatory Jessica Salazar i, MD Work Phone: [facility] Comment on above: eliquis Start: 03-08-2023 End: 03-08-2023 ambulatory MICHAEL SPANGLER Facility:[facility] Start: 03-08-2023 End: 03-08-2023 Patient encounter procedure Jessica Winter MD Work Phone: [facility]iology Comment on above: Persistent atrial fi brillation (HCC) (Primary Dx); Primary hypertension Start: 01-14-2023 Refill Jessica Salazar i, MD Work Phone: [facility]iology Start: 11-17-2022 ambulatory Terrence R BRIGETTE Facility : [facility] Start: 10-20-2022 End: 10-21-2022 ambulatory Terrence R FABYL Facility:CD:[id number] Start: 09-22-2022 End: 09-23-2022 ambulatory Terrence R BRIGETTE Facility:[facility] Start: 05-28-2022 End: 05-28-2022 ambulatory BLAYNE [facility] Start: 03-11-2022 End: 03-11-2022 Nursing evaluation of patient and report [facility] Comment on above: IRB 20-461 MAP AF PI : Dr. Shannon Dozier (Primary Dx) Start: 03-11-2022 End: 03-11-2022 Patient entered into trial [facility] Start: 02-16-2022 End: 02-17-[address] MICHAEL SPANGLER Facility:[facility] Start: 01-08-2022 Refill Jessica Salazar i, MD Work Phone: [facility]iology Comment on above: Refill Request Start: 10-16-2021 End: 10-16-2021 Patient encounter procedure Terrence CAPPS [facility] Start: 10-12-2021 End: 11-03-2021 ambulatory SHAIKH Selwyn MERCEDES Facility:[facility] Start: 10-07-2021 End: 10-07-[address] TERRENCE CAPPS Facility:[facility] Start: 10-01-2021 End: 10-02-2021 ambulatory KLEIN Selwyn DOBBSINChandrika Facility:[facility] Start: 09-30-2021 Orders Only Jessica Salazar i, MD Work Phone: [facility] Comment on above: Persistent atrial fi brillation (HCC) (Primary Dx); IRB 20-461 MAP AF PI: Dr. Shannon Dozier Start: 09-30-2021 Patient entered into trial Jessica Winter MD Work Phone: [facility] Start: 09-24-2021 End: 09-24-2021 ambulatory [facility] Work Phone: Cardiology Comment on above: Event (zio ) Start: 09-24-2021 End: 09-24-2021 Patient encounter procedure Jessica Winter MD Work Phone: [facility]iology Comment on above: Atrial fibrillation, persistent (HCC) (Primary Dx); Obstructive sleep apnea syndrome; Left atrial thrombus; Ejection fraction < 50% Start: 09-19-2021 Refill Jessica Salazar i, MD Work Phone: [facility] Comment on above: Refill Request Start: 09-01-2021 End: 09-01-2021 Patient encounter procedure Terrence CAPPS [facility] Nill/Said [facility] Start: 08-27-2021 ambulatory Jessica Salazar i, MD Work Phone: [facility]iology Comment on above: Any treatment adjust ment Start: 08-20-2021 Encounter for genera l adult medical examination without abnormal findings DR MICHAEL SPANGLER [facility] Start: 08-17-2021 End: 08-18-[address] MICHAEL SPANGLER Facility:[facility] Start: 08-17-2021 End: 08-18-2021 Encounter for general adult medical examination without abnormal findings DR MICHAEL SPANGLER Facility:[facility] Start: 07-03-2021 Telephone encounter Jessica Winter MD Work Phone: Cardiology Comment on above: Medication Problem ( Prior auth denial ) Start: 07-01-2021 Telephone encounter Jessica Winter MD Work Phone: [facility]iology Comment on above: Prior Auth from [employer] Start: 06-24-2021 Orders Only Jessica Salazar i, MD Work Phone: Cardiology Comment on above: Persistent atrial fi brillation (HCC) (Primary Dx); IRB 20-461 MAP AF PI: Dr. Shannon Dozier Start: 06-24-2021 Patient entered into trial Jessica Winter MD Work Phone: [facility] Start: 06-23-2021 End: 06-23-2021 ambulatory Arrhythmia Monitoring Lab Work Phone: Cardiology Comment on above: Holter Monitor Appli cation (24) Start: 06-23-2021 End: 06-23-2021 Patient encounter procedure Jessica Winter MD Work Phone: [facility]iology Comment on above: Atrial fibrillation, persistent (HCC) (Primary Dx) Start: 06-23-2021 End: 06-23-2021 Nursing evaluation of patient and report [facility] Comment on above: IRB 20-461 MAP AF PI : Dr. Shannon Dozier (Primary Dx) Start: 06-23-2021 End: 06-23-2021 Patient entered into trial [facility] Start: 03-18-2021 Patient entered into trial [facility] Start: 06-21-2018 End: 06-22-2018 Patient encounter procedure PROVIDER UNKNOWN Facility:[facility] Procedures Date Procedure Procedure Detail Performing Clinician Start: 10-07-2021 Sigmoidoscopy Terrence RANDLE Start: 08-17-2021 PSA screening SHAIKH SHAHZAD BURNS Comment on above: Performed By: #### P SASC, VITAD #### [facility] [address] [place] [address] Dr. Neelima Bansal Start: 09-02-2020 Colonoscopy Terrence NI LL Cardioversion Terrence NILL Catheter ablation of tissue of heart Terrence NILL Tonsillectomy Terrence NILL Plan of Treatment Date Care Activity Detail Author Start: 08-17-2026 PROSTATE CANCER SCRE ENING DISCUSSION PROSTATE CANCER SCREENING DISCUSSION [facility] Start: 08-17-2026 Prostate specific an tigen measurement Prostate Cancer Screening Discussion [facility] Start: 03-18-2024 DIABETES SCREEN DIABETES SCREEN [facility] Start: 03-18-2024 Diabetes Screening Diabetes Screenin g [facility] Start: 12-04-2023 Influenza vaccination Influenz a Vaccine (Season Ended) [facility] Start: 08-20-2023 Screening for malign ant neoplasm of colon [facility] Start: 04-04-2023 Behavioral Health Screening Behavioral Health Screening [facility] Start: 04-04-2023 Depression Assessment Depression Ass [facility] Start: 03-11-2023 BP Controlled (<130/80) BP Controlle d (<130/80) [facility] Start: 12-03-2022 Covid-19 Vaccine ( season) Covid-19 Vaccine ( season) [facility] Start: 12-03-2022 Covid-19 Vaccine ( season) Covid-19 Vaccine ( season) [facility] Start: 12-03-2022 Influenza vaccination Influenza Vacc ine (#1) [facility] Start: 04-04-2022 Depression Assessment Depression Ass [facility] Start: 12-03-2021 Influenza vaccination C [facility] Start: 11-19-2021 COVID-19 VACCINE (4 - Booster for Pfizer series) COVID-19 VACCINE (4 - Booster for Pfizer series) [facility] Start: 09-14-2021 COVID-19 VACCINE (4 - Booster for Pfizer series) COVID-19 VACCINE (4 - Booster for Pfizer series) [facility] Start: 2021 RSV Vaccine (1 - 1-d ose 60+ series) RSV Vaccine (1 - 1-dose 60+ series) [facility] Start: 04-04-2021 DEPRESSION ASSESSMENT DEPRESSION ASS ESSMENT [facility] Start: 12-09-2020 COVID-19 VACCINE (3 - Booster for Pfizer series) COVID-19 VACCINE (3 - Booster for Pfizer series) [facility] Start: 12-03-2020 Influenza vaccination INFLUENZA (#1) [facility] Start: 07-06-2020 Urine microalbumin profile [facility] Start: 2016 PROSTATE CANCER SCRE ENING DISCUSSION PROSTATE CANCER SCREENING DISCUSSION [facility] Start: 09-07-2011 SHINGRIX VACCINE (1 of 2) ROBLES GRIX VACCINE (1 of 2) [facility] Start: 2006 COLOGUARD (FIT-DNA) COLOGUARD (FIT-D NA) [facility] Start: 2006 Colonoscopy COLONOSCOPY [facility] Start: 2006 COLORECTAL CANCER SCREENING COLORECTAL CANCER SCREENING [facility] Start: [address] COLONOGRAPHY [facility] Start: 2006 FECAL OCCULT BLOOD FECAL OCCULT BLOO D [facility] Start: 2006 Screening for malign ant neoplasm of colon [facility] Start: 2006 [facility] Start: 1996 Lipid 1996 panel - S tomas or Plasma Lipid Screening [facility] Start: 1996 Lipid panel Lipid Screening [facility] Start: 1996 LIPID SCREEN LIPID SCREEN [facility] Start: 09-07-1979 Annual PCP Team Financial Aid Counselor elijah Disease Visit Annual PCP Team Chronic Disease Visit [facility] Start: 09-07-1979 BP Controlled (<130/80) BP Controlle d (<130/80) [facility] Start: 09-07-1979 HEPATITIS C SCREENING HEPATITIS C [facility] Start: 09-07-1979 Hepatitis C screening Hepatitis C [facility] Start: 09-07-1979 HIV SCREENING [facility]ING [facility] [facility] Start: 09-07-1979 HIV screening HIV Screening [facility] Start: [address] [facility] assessment DEPRESSION SCREENING [facility] End: 06-24-2022 ECG COMPLETE ECG COMPLETE ECG Routine Persistent atrial fibrillation (HCC) IRB 20-931 MAP AF PI: Dr. Shannon Dozier 1 Occurrences starting 06/24/2021 until 06/24/2022 [facility] Work Phone: Comment on above: 1 Occurrences starti ng 06/24/2021 until 06/24/2022 End: 09-30-2022 ECG COMPLETE ECG COMPLETE ECG Routine Persistent atrial fibrillation (HCC) IRB 2068 MAP AF PI: Dr. Shannon Dozier 1 Occurrences starting 09/30/2021 until 09/30/2022 [facility] Work Phone: Comment on above: 1 Occurrences starti ng 09/30/2021 until 09/30/2022 Echocardiography ECHO Cardiology Routine Atrial fibrillation, persistent (HCC) Ordered: 06/23/2021 [facility] Work Phone: Comment on above: Ordered: 06/23/2021 OUTSIDE VENDOR CARDI AC OUTPATIENT EXTENDED RHYTHM RECORDING (WITHOUT TELEMETRY) OUTSIDE VENDOR CARDIAC OUTPATIENT EXTENDED RHYTHM RECORDING (WITHOUT TELEMETRY) Holter Routine Persistent atrial fibrillation (HCC) IRB 20-191 MAP AF PI: Dr. Shannon Dozier Ordered: 06/24/2021 [facility] Work Phone: Comment on above: Ordered: 06/24/2021 OUTSIDE VENDOR CARDI AC OUTPATIENT EXTENDED RHYTHM RECORDING (WITHOUT TELEMETRY) OUTSIDE VENDOR CARDIAC OUTPATIENT EXTENDED RHYTHM RECORDING (WITHOUT TELEMETRY) Holter Routine Persistent atrial fibrillation (HCC) IRB 20-571 MAP AF PI: Dr. Shannon Dozier Ordered: 09/30/2021 [facility] Work Phone: Comment on above: Ordered: 09/30/2021 [facility] Immunization Date Immunization Notes Care Provider Shahzad gastelum 04-01-2021 SARS-CoV-2 (COVID-19 ) mRNA BNT-162b2 vax Terrence [facility] 06-11-2020 SARS-CoV-2 (COVID-19 ) mRNA BNT-162b2 vax Terrence [facility] 07-06-2010 tetanus toxoid, redu rodrigo diphtheria toxoid, and acellular pertussis vaccine, adsorbed [facility] Payers Date Payer Category Payer Unknown [id number] 2018 Unknown MMO MMO [employer] [id number] 2018-Present [phone] [address] [place] [address] PPO [id number] 2018 Unknown [id number] 1961 Unknown [id number] 1961 Unknown [id number] [id number] 1961 Unknown [id number] [id number] 1961 Unknown [id number] [id number] 1961 Unknown [id number] [id number] 1961 Unknown [id number] [id number] 1961 Unknown [id number] [id number] 1961 Unknown [id number] [id number] 1961 Unknown [id number] [id number] 1961 Unknown [id number] [id number] 1961 Unknown [id number] [id number] 1961 Unknown [id number] [id number]5 9 1961 Unknown [id number] [id number] 9 1959 Unknown [id number] Social History Date Type Detail Facility Start: 07-18-2018 End: 03-11-2022 Tobacco smoking status NHIS Ex-smoker [facility] End: 04-04-2017 History of tobacco use Current smoker [facility] End: 04-04-2017 History of tobacco use Cigarette Smoker [facility] Start: 07-18-2018 End: 03-11-2022 Tobacco use and exposure Smokeless tobacco non-user [facility] Start: 06-23-2021 End: 03-08-2023 Alcohol intake Current drinker of alcohol (finding) [facility] Start: 07-18-2018 History SDOH Alcohol Comment rarely [facility] Start: 1960 Sex Assigned At Male [facility] Start: 06-13-2021 End: 09-24-2021 Exposure to SARS-CoV-2 (event) Not sure [facility] Tobacco smoking status Never [facility] Start: 03-11-2022 End: 03-08-2023 Sex Assigned At Male General [facility] Start: 09-20-2021 End: 09-30-2021 Exposure to SARS-CoV-2 (event) Unable to assess [facility] Work Phone: Start: 03-11-2022 End: 03-08-2023 History of Social function [facility] Start: 04-07-2021 Gender identity Identifies as male gender (finding) [facility] Start: 04-07-2021 Sexual orientation Heterosexual (vikram gil) [facility] Goals Date Patient Goal Desired Activity /State Personal health goal Clinical Notes 06-23-2021 to 08-08-2023 Telephone Encounter - Sue Tellez - 08/08/2023 7:22 AM EDTTelephone Encounter - Sue Tellez - 08/08/2023 7:22 AM EDTJessica Winter MD - 03/08/2023 9:58 AM EST Note Date & Type Note Facility 08-08-2023 Telephone encounter Note Electronic request for refill. Requested Prescriptions Pending Prescriptions Disp Refills ELIQUIS 5 mg tab(s) [Pharmacy Med Name: ELIQUIS 5 MG TABLET] 180 tablet 3 Sig: take 1 tablet by mouth twice a day Last office visit in EP was 03/08/2023 Sue Tellez [facility] 08-08-2023 Miscellaneous Notes Electronic request for refill. Requested Prescriptions Pending Prescriptions Disp Refills ELIQUIS 5 mg tab(s) [Pharmacy Med Name: ELIQUIS 5 MG TABLET] 180 tablet 3 Sig: take 1 tablet by mouth twice a day Last office visit in EP was 03/08/2023 Sue Tellez documented in this encounter [facility] 03-08-2023 Note HNO ID: [id number] Author: Jessica Winter MD Service: ? Author Type: Physician Type: Progress Notes Filed: 03/08/2023 11:14 AM Note Text: [facility] [place] [facility] Department of Cardiovascular Medicine SECTION OF CARDIAC PACING and ELECTROPHYSIOLOGY OUTPATIENT VISIT DATE March 08, 2023 OUTPATIENT VISIT TYPE ESTABLISHED PRIMARY CARE PHYSICIAN: Michael Spangler MD ([facility]) [address] [place] [address] REFERRING PHYSICIAN: No referring provider defined for this encounter. CHIEF COMPLAINT: AF HISTORY OF PRESENT ILLNESS/NURSING INTAKE HISTORY: Mr. Robert is a 62 year old male who presents today for follow-up visit for atrial fibrillation. He has a history of persistent AF refractory to treatment with dofetilide with his first PVI in November 2018. He developed recurrence of his arrhythmia in November 2020. He had redo-PVI as part of the MAP AF in March 2021. He is s/p DCC 04/09/21. He has done well since the ablation without any recurrence of his arrhythmia since his cardioversion in 2021. He was last seen in in March of 2022 and denies any significant change since that time. He continues to do well without any recurrence. He remains on Toprol and Eliquis. His last monitor in 2021 showed NSR with brief runs of an SVT. Infrequent ectopy. 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 Sleep apnea wears CPAP PAST SURGICAL HISTORY Procedure Laterality Date AFIB ABLATION/PULM VEIN ISOLATION 11/13/2018 CARDIOVERSION 5 or 6 in lifetime TONSILLECTOMY HX SOCIAL HISTORY Social History Tobacco Use Smoking status: Former Types: Cigarettes Quit date: 2018 Years since quittin.9 Smokeless tobacco: Never Vaping Use Vaping Use: Never used Substance Use Topics Alcohol use: Yes Comment: rarely Drug use: Not Currently FAMILY HISTORY Problem Relation Age of Onset Heart Mother AF Hypertension Mother other (atrial fibrillation) Mother Coronary Artery Disease Father s/p CABG Heart Sister MVP Heart disease Brother Diabetes Brother Hypertension Brother ALLERGIES: ALLERGIES Allergen Reactions Penicillin Unknown MEDICATIONS: OZEMPIC 1 mg/dose (4 mg/3 mL) pen one time a week. hydrOXYzine HCl (ATARAX) 25 mg tablet Take 25 mg by mouth four times a day as needed. metoprolol succinate ER (TOPROL XL) 25 mg 24 hr tablet Take 1 tablet by mouth two times a day. apixaban (ELIQUIS) 5 mg tab(s) Take 1 tablet by mouth twice daily. metFORMIN (GLUCOPHAGE) 500 mg tablet Take 500 mg by mouth two times a day with meals. cholecalciferol (VITAMIN D3) 50 mcg (2,000 unit) tablet Take 2,000 Units by mouth once daily. lisinopril (ZESTRIL, PRINIVIL) 20 mg tablet Take 20 mg by mouth twice daily. Miri Cunha RN I have seen and evaluated the patient and confirmed the findings of the Physician Apron Trimmer/Nurse Practitioner or fellow/resident above, with the addition of appropriate modifications and corrections. I have personally formulated an assessment and plan of management which was discussed with the patient and the clinical team. PHYSICAL EXAMINATION: BP 136/66 Pulse 70 Ht 180.3 cm (5' 11 ) Wt 110.7 kg (244 lb) BMI 34.03 kg/m? General appearance: well appearing, in no acute distress, alert H+ENT: no JVP, no goiter apparent, no icterus Lungs: Lungs clear to auscultation, No wheezing or rhonchi Heart: RRR, no murmur, gallop, or rubs. No ectopy. Abdomen: Abdomen soft, non-tender. Extremities: no edema Neuro: Grossly intact. Pulses: present bilaterally Skin:no apparent skin break CARDIOVASCULAR MEDICINE TESTING: EKG today: IMPRESSION: CHIEF COMPLAINT: AF HISTORY OF PRESENT ILLNESS/ PLAN AND RECOMMENDATIONS: Mr. Robert is a 62 year old male who presents today for follow-up visit for atrial fibrillation. He has a history of persistent AF refractory to treatment with dofetilide with his first PVI in November 2018. He developed recurrence of his arrhythmia in November 2020. He had redo-PVI as part of the MAP AF in March 2021. He is s/p DCC 04/09/21. He has done well since the ablation without any recurrence of his arrhythmia since his cardioversion in 2021. He was last seen in in March of 2022 and denies any significant change since that time. He continues to do well without any recurrence. He remains on Toprol and Eliquis. His last monitor in 2021 showed NSR with brief runs of an SVT. Infrequent ectopy. Continues to do very well with a very low burden of atrial fibrillation or atrial flutter. Continue current management and follow-up in 2 years or sooner if needed. Jessica Winter MD I personally interviewed, confirmed and edited the above information as obtain (more content not included)... [facility] 03-08-2023 History of Present illness Narrative Images from the original note were not included. [facility] [place] [facility] Department of Cardiovascular Medicine SECTION OF CARDIAC PACING and ELECTROPHYSIOLOGY OUTPATIENT VISIT DATE March 08, 2023 OUTPATIENT VISIT TYPE ESTABLISHED PRIMARY CARE PHYSICIAN: Michael Spangler MD ([facility]) [address] [place] [address] REFERRING PHYSICIAN: No referring provider defined for this encounter. CHIEF COMPLAINT: AF HISTORY OF PRESENT ILLNESS/NURSING INTAKE HISTORY: Mr. Robert is a 62 year old male who presents today for follow-up visit for atrial fibrillation. He has a history of persistent AF refractory to treatment with dofetilide with his first PVI in November 2018. He developed recurrence of his arrhythmia in November 2020. He had redo-PVI as part of the MAP AF in March 2021. He is s/p DCC 04/09/21. He has done well since the ablation without any recurrence of his arrhythmia since his cardioversion in 2021. He was last seen in in March of 2022 and denies any significant change since that time. He continues to do well without any recurrence. He remains on Toprol and Eliquis. His last monitor in 2021 showed NSR with brief runs of an SVT. Infrequent ectopy. 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 Sleep apnea wears CPAP PAST SURGICAL HISTORY Procedure Laterality Date AFIB ABLATION/PULM VEIN ISOLATION 11/13/2018 CARDIOVERSION 5 or 6 in lifetime TONSILLECTOMY HX SOCIAL HISTORY Social History Tobacco Use Smoking status: Former Types: Cigarettes Quit date: 2017 Years since quittin.9 Smokeless tobacco: Never Vaping Use Vaping Use: Never used Substance Use Topics Alcohol use: Yes Comment: rarely Drug use: Not Currently FAMILY HISTORY Problem Relation Age of Onset Heart Mother AF Hypertension Mother other (atrial fibrillation) Mother Coronary Artery Disease Father s/p CABG Heart Sister MVP Heart disease Brother Diabetes Brother Hypertension Brother ALLERGIES: ALLERGIES Allergen Reactions Penicillin Unknown MEDICATIONS: OZEMPIC 1 mg/dose (4 mg/3 mL) pen one time a week. hydrOXYzine HCl (ATARAX) 25 mg tablet Take 25 mg by mouth four times a day as needed. metoprolol succinate ER (TOPROL XL) 25 mg 24 hr tablet Take 1 tablet by mouth two times a day. apixaban (ELIQUIS) 5 mg tab(s) Take 1 tablet by mouth twice daily. metFORMIN (GLUCOPHAGE) 500 mg tablet Take 500 mg by mouth two times a day with meals. cholecalciferol (VITAMIN D3) 50 mcg (2,000 unit) tablet Take 2,000 Units by mouth once daily. lisinopril (ZESTRIL, PRINIVIL) 20 mg tablet Take 20 mg by mouth twice daily. Miri Cunha RN I have seen and evaluated the patient and confirmed the findings of the Physician Apron Trimmer/Nurse Practitioner or fellow/resident above, with the addition of appropriate modifications and corrections. I have personally formulated an assessment and plan of management which was discussed with the patient and the clinical team. PHYSICAL EXAMINATION: BP 136/66 Pulse 70 Ht 180.3 cm (5' 11 ) Wt 110.7 kg (244 lb) BMI 34.03 kg/m General appearance: well appearing, in no acute distress, alert H+ENT: no JVP, no goiter apparent, no icterus Lungs: Lungs clear to auscultation, No wheezing or rhonchi Heart: RRR, no murmur, gallop, or rubs. No ectopy. Abdomen: Abdomen soft, non-tender. Extremities: no edema Neuro: Grossly intact. Pulses: present bilaterally Skin:no apparent skin break CARDIOVASCULAR MEDICINE TESTING: EKG today: IMPRESSION: CHIEF COMPLAINT: AF HISTORY OF PRESENT ILLNESS/ PLAN AND RECOMMENDATIONS: Mr. Robert is a 62 year old male who presents today for follow-up visit for atrial fibrillation. He has a history of persistent AF refractory to treatment with dofetilide with his first PVI in November 2018. He developed recurrence of his arrhythmia in November 2020. He had redo-PVI as part of the MAP AF in March 2021. He is s/p DCC 04/09/21. He has done well since the ablation without any recurrence of his arrhythmia since his cardioversion in 2021. He was last seen in in March of 2022 and denies any significant change since that time. He continues to do well without any recurrence. He remains on Toprol and Eliquis. His last monitor in 2021 showed NSR with brief runs of an SVT. Infrequent ectopy. Continues to do very well with a very low burden of atrial fibrillation or atrial flutter. Continue current management and follow-up in 2 years or sooner if needed. Jessica Winter MD I personally interviewed, confirmed and edited the above information as obtained by others. CONTACT INFORMATION: Jessica Winter MD documented in this encounter [facility] 01-14-2023 Miscellaneous Notes Call from patient requesting refill. Requested Prescriptions Pending Prescriptions Disp Refills metoprolol succinate ER (TOPROL XL) 25 mg 24 hr tablet 180 tablet 3 Sig: Take 1 tablet by mouth two times a day. Patient last seen 03/11/22 Tiffanie Sutton documented in this encounter [facility] 09-22-2022 Note Chief Complaint consultation for colonoscopy HPI Staff 62 year old male presents on consultation for surveillance colonoscopy. Sigmoidoscopy completed 10/07/21 with tubulovillous adenoma at site of previous polypectomy. Denies abdominal pain. Intermittent anal discomfort and scant bleeding with wiping. He believes this is related to irritation. Denies change in bowel habits. No nausea or vomiting. No unexplained weight loss. Patient on Eliquis. Grandfather with history of colon cancer, age known. History of Present Illness 62 yo male with h/o htn, atrial fibrillation, on Eliquis, DMII, presents for surveillance colonoscopy; patient underwent colonoscopy 09/2020 due to positive Cologuard; had multiple tubular adenomas and 3 cm tubulovillous adenoma in sigmoid colon; follow up sigmoidoscopy 10/2021 revealed a 7 mm recurrent tubulovillous adenoma at polypectomy site; polyp removed and site tattooed; patient doing well, reports occasional blood with wiping after multiple bms, no change in bms or hematochezia; no abd complaints; no abd operations; no asa or NSAID use; Eliquis daily; fmhx of colon cancer in patient's grandfather, no fmhx of IBD; no tobacco use. Review of Systems PHQ Score Initial Depression Screen Score: 0 ROS - Provider Constitutional: no fever, no sweats, no weight loss. Eyes: no glasses, no blurred vision, no visual loss. ENMT: no dentures, no hoarseness, no swallowing difficulties, no hearing loss, no ear infection(s), no nose bleeds. Cardiovascular: normal blood pressure, no chest pain, regular heartbeat, no heart murmur. Respiratory: no shortness of breath, no cough, no asthma, no wheezing. Gastrointestinal: no nausea, no vomiting, no diarrhea, no constipation, no blood in stool, no change in bowel habits, no abdominal pain, no hepatitis. Genitourinary: no kidney stones, no urine infection, no dysuria. Musculoskeletal: no pain, no weakness. Skin: no changing moles, no rash, no skin lumps. Neurologic: no seizures, no epilepsy, no headache. Psychiatric: no emotional or psychiatric problem. Heme/Lymph: no bleeding problems, no anemia, no blood clots, no transfusions. Allergy/Immunologic: no swollen lymph nodes/glands, no IV drug abuse. Other: Additional ROS info: Except as noted in the above Review of Systems and in the History of Present Illness, all other systems have been reviewed and are negative or noncontributory. Physical Exam Vitals & Measurements HR: 70(Peripheral) RR: 16 BP: 126/80 HT: 71 in HT: 180.3 cm WT: 116.3 kg WT: 255.86 lb BMI: 35.78 HEENT: normal conjunctiva, sclera clear, no scleral icterus, EOM intact, PERRLA, oral mucosa moist without lesions. Neck: trachea midline, no mass, symmetric, no thyromegaly or nodules, no adenopathy Respiratory: lungs CTA, respirations non labored. Cardiovascular: regular rate and rhythm, no murmur, no pedal edema or varicosities. Gastrointestinal: obese, soft, non distended, no tenderness, no masses, no palpable hernias, diastasis recti no, no hepatosplenomegaly; normal bs Lymphatic: no cervical adenopathy, no supraclavicular adenopathy. Musculoskeletal: normal gait, digits and nails without infection, nodes, cyanosis, clubbing. Skin: no rashes, no lesions, no ulcers, no subcutaneous nodules, induration. Psychiatric/Neuro: oriented to time, place, person, judgement normal, affect appropriate for age, insight intact, no focal deficits. Tests: review of old records completed, Discussed surgical options, risks, and possible complications with patient. Assessment/Plan 1. Personal history of colonic polyps (Z86.010: Personal history of colonic polyps) plan colonoscopy under anesthesia, informed consent obtained. 2. BMI 35.0-35.9,adult (Z68.35: Body mass index [BMI] 35.0-35.9, adult) recommend diet and exercise. Follow-up No qualifying data available Problem List/Past Medical History Ongoing Atrial fibrillation BMI 35.0-35.9,adult Chronic anticoagulation HTN (hypertension) Morbid obesity Personal history of colonic polyps Positive colorectal cancer screening using Cologuard test Sleep apnea Tubular adenoma of colon Tubular adenoma of colon Tubulovillous adenoma of colon Historical No qualifying data Procedure/Surgical History Sigmoidoscopy (10/07/2021), Colonoscopy (09/2020), Cardioversion, Catheter ablation of tissue of heart, Tonsillectomy. Medications Eliquis 5 mg oral tablet lisinopril 20 mg Tab MetFORMIN (Eqv-Glucophage XR) 500 mg oral tablet, extended release, 500 mg= 1 tab(s), Oral, BID metoprolol 25 mg ER Tab, 25 mg= 1 tab(s), Oral, Daily Vitamin D3 2000 intl units oral tablet Allergies penicillin (Unknown) Social History Alcohol - Denies Alcohol Use, 09/01/2021 Substance Abuse - Denies Substance Abuse, 09/01/2021 Tobacco Former smoker, quit more than 30 days ago Tobacco Use:. Never Smokeless Tobacco Use:. Cigarettes, 09/22/2022 Family History Atrial fibrillation: Mother. Heart disease: Fa (more content not included)... [facility] Comment on above: Result Comment: Elec tronically Signed By: BRIGETTE KNOWLES, Terrence Avendaño\Date and Time Signed: 09/22/22 20:37 EDT 05-28-2022 Note Sleep Medicine Follo w-Up Identifying Patient Descriptions: Right-handed white male; previous served in 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 Case History: Dr. Cintron and Jb Bone, NUT PROCESS HELPER-C referred this patient for consultation as regards the chief complaint and related problems. The patient has a history of atrial fibrillation. He was referred for evaluation for sleep-disordered breathing as a possible contributing factor. Duration: The patient was first told that he snored when he was in his 30s. Diagnostic polysomnography on 03/05/2018 demonstrated AHI of 56.5 events/hour and a nanci SaO2=79.0% consistent with Obstructive Sleep Apnea. The patient was brought back for a CPAP Titration Study on 03/26/2018 which showed an improvement in sleep architecture with the PAP set at a pressure setting of 12 cm H2O. The pressure setting was reduced to 11 cm H2O for air leak. History of Present Illness: The patient is sleeping well with CPAP therapy. He has no issues. His noticed that his legs are moving a little more. Periodic limb movements were detected in the patient's last sleep study. However, the patient does not complain of any restless legs, and his notices that his leg movements are not bothersome. The patient typic goes to bed at 10 PM and wakes up at 630-7 AM. He feels rested in the morning he denies morning headaches or dry cough. He is good during the day. He does not take naps. He does not fall asleep while driving or at work. He is off caffeine. He drinks decaffeinated coffee. He does not take any stimulant medications. The patient is prediabetic. He was started on metformin. Delano Sleepiness Scale: Current total score: 4/24, Previous total score: 4/24, and Baseline total score: 2/24 PAP Data Downloaded from Patient's PAP Device (if applicable): Settings: Mode: CPAP Mode Settings: CPAP=11 cm H2O and EPR/C-Flex/Bi-Flex=Off Compliance data: 90 total days use in the last 90 days, Over the last 14 days, average daily usage was 8 hrs 3 min 0 sec, and % Days with Usage >= 4 Hours: 100 Leak data: Median (L/min): 0.0 and 95th percentile: (L/min): 2.7 Therapy data: AHI (events/hour): 0.6, Apnea Index: 0.3, Hypopnea Index: 0.3, Obstructive Apnea Index: 0.1, Central (Clear Airway) Apnea Index: 0.2, Unknown Apnea Index: 0.0, RERA Index: 0.1, and % of Night in Periodic Breathing or Otf-Strokes Respiration: 0 Review of Systems Respiratory: Negative for cough, shortness of breath and wheezing. Cardiovascular: Negative for chest pain and palpitations. Gastrointestinal: Positive for diarrhea. Negative for abdominal pain. Genitourinary: Negative for difficulty urinating. Neurological: Negative for headaches. Objective Physical Exam Constitutional: Appearance: Normal appearance. HENT: Head: Normocephalic and atraumatic. Cardiovascular: Rate and Rhythm: Normal rate and regular rhythm. Heart sounds: Normal heart sounds. Pulmonary: Effort: Pulmonary effort is normal. Breath sounds: Normal breath sounds. Neurological: Mental Status: He is alert and oriented to person, place, and time. Psychiatric: Mood and Affect: Mood normal. Behavior: Behavior normal. Thought Content: Thought content normal. Assessment/Plan Impressions: Obstructive Sleep Apnea (G47.33) (AHI=56.5 events/hour; Nanci SaO2=79.0%; Xfsijh=725.9 lbs; BMI=34.7 kg/m2, on 03/05/2018 at [facility]), the patient compliant with and benefitting from CPAP therapy Periodic Limb Movements during Sleep (Unspecified abnormal involuntary movements, R25.9) (PLMI=24.0/hour; PLM Arousal Index=3.8/hour, on 03/26/2018 at [facility]) Ferritin vytlu=999 ng/mL on 08/02/2018 Nocturnal premature ventricular contractions (I49.3) Atrial fibrillation (I48.91) Left atrial appendage thrombus (RYANN on 03/30/2018) s/p ablation History of tonsillectomy (1963) History of nasal fracture (1967) Medication(s) that may affect sleep and/or wakefulness: ? 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; bilateral renal angiogram showing no evidence of stenosis or new fibromuscular dysplasia (02/02/2018) Prediabetes History of endoscopic ultrasound with fine-needle aspiration and biopsies (02/06/2018) with benign gastric fundic-type mucosa, no intestinal metaplasia, no evidence of dysplasia, and no malignancy identified in izaiah-hepatic lymph nodes Colon polyps s/p colonoscopy (10/2020) History of head injury () History of syncope (1980s) History of tobacco use (Z87.891) (quit on 01/30/2018) Allergy to penicillin Obesity (E66.9) Comments: The patient returned today for reevaluation and long discussion of the recent polysomnographic study, our impressions, an (more content not included)... [facility] 03-11-2022 History of Present illness Narrative Study Name: IRB 20-461 [facility] AF PI: Dr. Shannon Dozier Study Visit: Follow Up I met with the patient for the Final (12-month) visit. Has the patient had any changes in his/her health since the last study visit? No Has the patient had any atrial fibrillation reoccurrence since last visit: No Number of reoccurrences: N/A Intervention Required: No Cardioversion (Chemical or Electric): No Medications and allergy lists updated and current. Has the patient had any outside hospitalizations/ER visits: No Dates and locations: N/A Zio Patch monitor placed by Ager Operator: Yes Informed patient that this was his final study visit and that he needs to continue his SOC treatments and visits per MD direction. He verbalized understanding. Chocolate Maker: Leny Leon Pager #: [phone] documented in this encounter [facility] 01-08-2022 Miscellaneous Notes Call from pharmacy requesting refill. Requested Prescriptions Pending Prescriptions Disp Refills metoprolol succinate ER (TOPROL XL) 25 mg 24 hr tablet [Pharmacy Med Name: METOPROLOL SUCC ER 25 MG TAB] 180 tablet 3 Sig: TAKE 1 TABLET BY MOUTH TWICE A DAY Patient last seen 09/24/21 [facility] [place] [facility] Electronically signed by [facility] at 01/08/2022 2:59 PM EDT documented in this encounter [facility] 10-07-2021 Note [facility] [place], [place] NAME: ABBEY ROBERT DATE OF : MEDICAL REC#: [id number] DRAPERY INSPECTOR: Kamilah FUENTES MEDICAL ADMIT DATE: 10/07/2021 06:32:00 FINISH OFF OPERATOR DATE: 10/07/2021 23:54 DICTATING PHYSICIAN: TERRENCE CAPPS DICTATION DATE: 10/07/2021 08:16 OPERATIVE NOTE OPERATION DATE: 10/07/2021 PREOPERATIVE DIAGNOSIS: Personal history of colon polyps with a large distal sigmoid tubulovillous adenoma removed one year ago. POSTOPERATIVE DIAGNOSIS: Residual polyp in the distal sigmoid, approximately 7 mm and proximal sigmoid 3 mm polyp. PROCEDURE: Flexible sigmoidoscopy to 50 cm with cold snare polypectomy x2 for proximal sigmoid and sigmoid 3 mm polyp and hot snare polypectomy x1 for recurrent distal sigmoid polyp 7 mm, as well as tattooing of the base. SURGEON: Terrence Capps M.D. ANESTHESIA: Monitored anesthesia care. ESTIMATED BLOOD LOSS: Less than 1 mL. INDICATIONS AND CONSENT: Patient is a 61-year-old male with personal history of multiple colon polyps, including a large tubular villous adenoma within the distal sigmoid, approximately 3 cm. He now presents for evaluation of this polypectomy site. He is on Eliquis which he stopped two days ago. Indications, risks, benefits, alternatives of proceeding with sigmoidoscopy as well as possible biopsy, possible polypectomy explained extensively to the patient including risks of bleeding, colon perforation or anesthetic complications. All of his questions were answered. Informed consent was obtained. PROCEDURE: Patient brought to the operating room, placed in the left lateral decubitus position. Monitored anesthesia care was provided. Rectal exam was performed which showed no masses or blood. Scope was inserted in the anal canal. Under direct visualization it was advanced to 50 cm. There was noted to be some formed stool at this point. Upon withdrawal of the scope, mucosal surfaces were carefully examined. In the proximal sigmoid, there was noted to be a 3 mm sessile polyp that was removed with cold snare with good hemostasis. In the mid sigmoid, there was noted to be an additional 3 mm polyp that was sessile, that was removed with cold snare with good hemostasis. In the distal sigmoid, likely in the area of the previous polypectomy, there was a residual 7 mm polyp. This was removed with hot snare with good hemostasis. The base was tattooed. The scope was retroflexed. There was no significant hemorrhoidal disease, some prominent rectal veins. The scope was then withdrawn. Patient tolerated procedure well, was sent to recovery room in good condition. recommend follow up surveillance colonoscopy in 1 year. CC: Michael Spangler M.D. . Electronically Authenticated and Edited by: Terrence Capps MD on 10/12/2021 05:16 PM EDT [facility] Signed and Approved by: DR TERRENCE CAPPS . 10/12/2021 17:16:00 [facility] 09-24-2021 History of Present illness Narrative EVENT MONITOR DISPOSABLE PATCH INSTRUCTIONS Patient Name: Abbey Robert Clinic Number: [id number] Skin prepped and cleansed with alcohol Patch secured to prepped area Monitor Activated Serial #: [id number] Patient Instructed: 1.) Prescribed order timeframe 2.) Bathing guidelines 3.) Usage of event button and diary documentation 4.) Return of monitor at the end of prescribed order 5.) Call with problems [phone] or [phone] ext. [phone] Patient expresses a good understanding of instructions Nighat MirelesCaremerge documented in this encounter [facility] 09-24-2021 History of Present illness Narrative Images from the original note were not included. [facility] [place] [facility] Department of Cardiovascular Medicine SECTION OF CARDIAC PACING and ELECTROPHYSIOLOGY OUTPATIENT VISIT DATE September 24, 2021 OUTPATIENT VISIT TYPE ESTABLISHED PRIMARY CARE PHYSICIAN: Michael Spangler MD ([facility]) [address] [place] [address] CHIEF COMPLAINT: AF HISTORY OF PRESENT ILLNESS/NURSING INTAKE HISTORY: Mr. Robert is a 61 year old male who presents today for follow-up visit. He was last seen in follow-up . He has a history of persistent AF refractory to treatment with dofetilide and had his first PVI in November 2018. AF recurred in November 2020. He had redo-PVI as part of the MAP AF in March 2021 and was last seen here in June 2021. He continues to do well and denies any known recurrence of atrial fibrillation. He denies chest pain, shortness of breath, orthopnea, cough, edema, palpitations, PND, lightheadedness or syncope. Abbey Robert is taking Eliquis for stroke prophylaxis without bleeding complications. He has a [id number]-MAVw score of 1 for hypertension. 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 Sleep apnea wears CPAP PAST SURGICAL HISTORY Procedure Laterality Date AFIB ABLATION/PULM VEIN ISOLATION 11/13/2018 CARDIOVERSION 5 or 6 in lifetime TONSILLECTOMY HX SOCIAL HISTORY Social History Tobacco Use Smoking status: Former Smoker Types: Cigarettes Quit date: 2017 Years since quittin.4 Smokeless tobacco: Never Used Vaping Use Vaping Use: Never used Substance Use Topics Alcohol use: Yes Comment: rarely Drug use: Not Currently FAMILY HISTORY Problem Relation Age of Onset Heart Mother AF Hypertension Mother other (atrial fibrillation) Mother Coronary Artery Disease Father s/p CABG Heart Sister MVP Heart disease Brother Diabetes Brother Hypertension Brother ALLERGIES: ALLERGIES Allergen Reactions Penicillin Unknown MEDICATIONS: ELIQUIS 5 mg tab(s) TAKE 1 TABLET BY MOUTH TWICE A DAY metoprolol succinate ER (TOPROL XL) 25 mg 24 hr tablet Take 1 tablet by mouth twice daily. cholecalciferol (VITAMIN D-3) 50 mcg (2,000 unit) tablet Take 2,000 Units by mouth once daily. lisinopril (ZESTRIL, PRINIVIL) 20 mg tablet Take 20 mg by mouth twice daily. Kristyn Pretty RN I personally interviewed and examined the patient and confirmed and edited the above information as obtained by others. PHYSICAL EXAMINATION: BP 143/77 Pulse 60 Ht 180.3 cm (5' 11 ) Wt 113.4 kg (250 lb) BMI 34.87 kg/m General appearance: well appearing, in no acute distress, alert H+ENT: no JVP, no goiter apparent, no icterus Lungs: Lungs clear to auscultation, No wheezing or rhonchi Heart: RRR, no murmur, gallop, or rubs. No ectopy. Abdomen: Abdomen soft, non-tender. Extremities: no edema Neuro: Grossly intact. Pulses: present bilaterally Skin:no apparent skin break Last ECHO Result Conclusion ECHO Collected: 08/24/2021 1:29 PM (Final result) Impression: CONCLUSIONS: - Technically difficult exam due to body habitus. - Exam indication: Nonsustained atrial fibrillation - The left ventricle is normal in size. Left ventricular systolic function is normal. EF = 67 5% (2D biplane) - The right ventricle is mildly dilated. Right ventricular systolic function is normal. - The left atrial cavity is moderately dilated. - The right atrial cavity is dilated. - - suspect mitral valve prolapse with eccentric 1-2+ later systolic MR, difficult parasternal imaging today better shown on prior. - Estimated right ventricular systolic pressure is likely underestimated due to a weak or incomplete tricuspid regurgitation signal and is, at least, 37 mmHg consistent with mild pulmonary hypertension. Estimated right atrial pressure is 3 mmHg based on IVC assessment. - Exam was compared with the prior echocardiographic exam performed on 03/18/2021. No major changes. * * * Final * * * Complete Results Last EKG Result Conclusion ECG COMPLETE Collected: 09/24/2021 1:49 PM (Preliminary result) Impression: UNUSUAL P AXIS, POSSIBLE ECTOPIC ATRIAL RHYTHM ABNORMAL ECG Complete Results IMPRESSION:PLAN AND RECOMMENDATIONS: CHIEF COMPLAINT: AF HISTORY OF PRESENT ILLNESS: Mr. Robert is a 61 year old male who presents today for follow-up visit. He was last seen in follow-up . He has a history of persistent AF refractory to treatment with dofetilide and had his first PVI in November 2018. AF recurred in November 2020. He had redo-PVI as part of the MAP AF in March 2021 and was last seen here in June 2021. He continues to do well and denies any known recurrence of atrial fibrillation. He denies chest pain, shortness of breath, orthopnea, cough, edema, palpitations, PND, lightheadedness or syncope. Abbey Robert is taking Eliquis for stroke prophylaxis without bleeding complications. He has a [id number]-FSLa score of 1 for hypertension. EKG today: Doing very well post ablation with no recurrence. Continue current medications and follow-up in 6 months or sooner if needed. I personally interviewed, confirmed and edited the above information as obtained by others. CONTACT INFORMATION: Jessica Winter MD documented in this encounter [facility] 09-21-2021 Miscellaneous Notes Electronic request for refill. Pending Prescriptions Disp Refills ELIQUIS 5 MG TABLET 180 tablet 3 Sig: TAKE 1 TABLET BY MOUTH TWICE A DAY LENA: Yes Last office visit in was 06/23/2021 Sue Tellez documented in this encounter [facility] 07-09-2021 Miscellaneous Notes Mr. Robert has two months' worth of Eliquis at home and may be able to discontinue after his f/u visit with Dr. Winter. He will discuss at his visit. Kristyn Pretty RN Mr. Robert returned nurse call, asking to be contacted [facility] Electronically signed by [facility] at 07/08/2021 11:26 AM EDT Images from the original note were not included. Full fax scanned into Shared drive. Electronically signed by [facility] at 07/03/2021 3:30 PM EDTdocumented in this encounter [facility] 07-02-2021 Miscellaneous Notes PA submitted via [employer]. Isidra De Jesus RN Images from the original note were not included. Electronically signed by [facility] at 07/01/2021 1:47 PM EDTdocumented in this encounter [facility] 06-23-2021 History of Present illness Narrative HOLTER MONITOR APPLICATION Patient Name: Abbey Robert [facility] Number: [id number] Chest is cleansed with alcohol Skin prep applied Electrodes place on chest and stress loops secured with tape Fresh battery inserted in monitor Holter monitor secured to patient with waist or shoulder straps Patient instructed 1.) Diary documentation 2.) Usage of event button 3.) Maintenance and care of monitor 4.) Safety issues with monitor 5.) Return unit in 24 hours or 48 hours 6.) Call with problems [phone] OR [phone] Patient expresses good verbal understanding of instructions GIUSEPPE Garcia documented in this encounter [facility] 06-23-2021 History of Present illness Narrative Study Name: IRB 20-461 MAP AF PI: Dr. Shannon Dozier Study Visit: Follow Up I met with the patient for the 3 Month visit for the MAP AF Study. The patient re-consented the study today. Reaffirmed that the patient still wishes to participate in the study and continues to consent to the study. Has the patient had any changes in his/her health since the last study visit? No Has the patient had any atrial fibrillation reoccurrence since last visit: No Number of reoccurrences: N/A Intervention Required: No Cardioversion (Chemical or Electric): No Medications and allergy lists updated and current. Has the patient had any outside hospitalizations/ER visits: No Zio Patch monitor placed by Ager Operator: Yes Discussed with the patient the importance of follow up in the study and time of next required study visit. He verbalized understanding. The patient prefers 6-month follow up in person. Patient contact information reaffirmed and updated. Coordinator contact information provided to the patient. Education provided: Follow up requirements/schedule Materials dispensed: None Chocolate Maker: Mariah Cavazos PA-C Pager #: [phone] documented in this encounter [facility] 06-23-2021 Nurse Note 1. How often on average, does your irregular heart rhythm (atrial fibrillation) occur? Less than once a month 2. How long on average, do the episodes of the irregular heart rhythm last? About an hour 3. How often have you been bothered by this symptom in the past 4 weeks? Palpitations: none, Shortness of breath at rest: none, Shortness of breath during physical activity: very little, Exercise intolerance (fatigue during mild physical activity): very little, Fatigue at rest: none, Lightheadedness/dizziness: none and Chest pain or pressure: none 4. Have you had an inpatient hospital admission within 30 days of your procedure? No Miri Cunha RN documented in this encounter [facility] 06-23-2021 History of Present illness Narrative Images from the original note were not included. [facility] [place] [facility] Department of Cardiovascular Medicine SECTION OF CARDIAC PACING and ELECTROPHYSIOLOGY OUTPATIENT VISIT DATE June 23, 2021 OUTPATIENT VISIT TYPE ESTABLISHED PRIMARY CARE PHYSICIAN: Michael Spangler MD ([facility]) [address] [place] [address] CHIEF COMPLAINT: AF HISTORY OF PRESENT ILLNESS/NURSING INTAKE HISTORY: Mr. Robert is a 60 year old male who presents today for his four month redo PVI follow up. He has a history of HTN, REAL treated with CPAP, persistent atrial fibrillation refractory to Dofetilide, HANNAH clot, mild LV dysfunction EF 45%, s/p PVAI 11/13/18. His EF improved to 62% and most recently 55% (03/24). Dofetilide was stopped 03/2019. He had a recurrence of atrial fibrillation in November 2020 and underwent DCCV 11/07/20 which was successful. He had early recurrence of atrial fibrillation by 11/18/20 and underwent redo ablation 03/19/21. Per the report, at baseline the pulmonary veins were well isolated from the previous ablation. Mild electrical reconnections were noted in septal area towards the roof and in the posterior wall which we targeted with ablation successfully. He is enrolled in the MAP AF study. He developed recurrent atrial fibrillation shortly after the ablation and underwent DCC 04/09/21. He has done well since that time with infrequent episodes of palpitations. It is not clear if he is experiencing atrial fibrillation or PVCs as he describes the latter. He has Kardia but denies using this recently. Overall, he notes improvement in his symptoms and episodes since the ablation. 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 Sleep apnea wears CPAP PAST SURGICAL HISTORY Procedure Laterality Date AFIB ABLATION/PULM VEIN ISOLATION 11/13/2018 CARDIOVERSION 5 or 6 in lifetime TONSILLECTOMY HX SOCIAL HISTORY Social History Tobacco Use Smoking status: Former Smoker Types: Cigarettes Quit date: 2017 Years since quittin.2 Smokeless tobacco: Never Used Vaping Use Vaping Use: Never used Substance Use Topics Alcohol use: Yes Comment: rarely Drug use: Not Currently FAMILY HISTORY Problem Relation Age of Onset Heart Mother AF Hypertension Mother other (atrial fibrillation) Mother Coronary Artery Disease Father s/p CABG Heart Sister MVP Heart disease Brother Diabetes Brother Hypertension Brother ALLERGIES: ALLERGIES Allergen Reactions Penicillin Unknown MEDICATIONS: metoprolol succinate ER (TOPROL XL) 25 mg 24 hr tablet Take 1 tablet by mouth twice daily. apixaban (ELIQUIS) 5 mg tab(s) Take 1 tablet by mouth twice daily. cholecalciferol (VITAMIN D-3) 50 mcg (2,000 unit) tablet Take 2,000 Units by mouth once daily. lisinopril (ZESTRIL, PRINIVIL) 20 mg tablet Take 20 mg by mouth twice daily. Miri Cunha RN I personally interviewed and examined the patient and confirmed and edited the above information as obtained by others. PHYSICAL EXAMINATION: BP 128/76 Pulse (!) 56 Ht 180.3 cm (5' 11 ) Wt 115.7 kg (255 lb) BMI 35.57 kg/m General appearance: well appearing, in no acute distress, alert H+ENT: no JVP, no goiter apparent, no icterus Lungs: Lungs clear to auscultation, No wheezing or rhonchi Heart: RRR, no murmur, gallop, or rubs. No ectopy. Abdomen: Abdomen soft, non-tender. Extremities: + 1edema Neuro: Grossly intact. Pulses: present bilaterally Skin:no apparent skin break CARDIOVASCULAR MEDICINE TESTING: EKG today: Echo: 03/18/21 CONCLUSIONS: - Exam indication: AFIB, Hx of LA thrombus, MVP, MR - The left ventricle is normal in size. Left ventricular systolic function is normal. EF = 55 5% (visual est.) Left ventricular diastolic function was not evaluated due to AF. - The right ventricle is mildly dilated. Right ventricular systolic function is normal. - The left atrial cavity is severely dilated. - The right atrial cavity is dilated. - There is moderate (2+) holosystolic mitral valve regurgitation due to prolapse. 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 - Exam was compared with the prior echocardiographic exam performed on 03/29/2019 There is no significant change. IMPRESSION: PLAN AND RECOMMENDATIONS: CHIEF COMPLAINT: AF HISTORY OF PRESENT ILLNESS/NURSING INTAKE HISTORY: Mr. Robert is a 60 year old male who presents today for his four month redo PVI follow up. He has a history of HTN, REAL treated with CPAP, persistent atrial fibrillation refractory to Dofetilide, HANNAH clot, mild LV dysfunction EF 45%, s/p PVAI 11/13/18. His EF improved to 62% and most recently 55% (03/24). Dofetilide was stopped 03/2019. He had a recurrence of atrial fibrillation in November 2020 and underwent DCCV 11/07/20 which was successful. He had early recurrence of atrial fibrillation by 11/18/20 and underwent redo ablation 03/19/21. Per the report, at baseline the pulmonary veins were well isolated from the previous ablation. Mild electrical reconnections were noted in septal area towards the roof and in the posterior wall which we targeted with ablation successfully. He is enrolled in the MAP AF study. He developed recurrent atrial fibrillation shortly after the ablation and underwent DCC 04/09/21. He has done well since that time with infrequent episodes of palpitations. It is not clear if he is experiencing atrial fibrillation or PVCs as he describes the latter. He has Kardia but denies using this recently. Overall, he notes improvement in his symptoms and episodes since the ablation. Doing well post redo ablation with no recurrence after the blanking period of antiarrhythmic medications. On exam today he has mild ankle edema. He is using his CPAP for sleep apnea. I encouraged him to continue losing weight. Follow-up with me in 6 months with an echo. Jesscia Winter MD I personally interviewed, confirmed and edited the above information as obtained by others. CONTACT INFORMATION: Jessica Winter MD Record recurrences on or prior to the follow-up date but after the date of the previous follow-up (or after ablation date if this is the first follow-up) Palpitations: No AFib: Yes Aflutter: No AT or SVT: No Is patient currently in atrial fibrillation? No Arrhythmia recurrence beyond the blanking period: No One year success off AAD Not applicable documented in this encounter [facility] Evaluation + Plan note No data available for this section General Surgery [place] Evaluation note Diagnosis IRB 20-461 MAP AF PI: Dr. Shannon oDzier- Primary documented in this encounter [facility] note* Diagnosis Atrial fibrillation, persistent (HCC)- Primary Atrial fibrillation documented in this encounter [facility] note* Diagnosis Atrial fibrillation, persistent (HCC) Atrial fibrillation documented in this encounter [facility] note* Diagnosis Persistent atrial fibrillation (HCC)- Primary Atrial fibrillation IRB 2046 MAP AF PI: Dr. Shannon Dozier documented in this encounter [facility] note* Diagnosis Atrial fibrillation, persistent (HCC)- Primary Atrial fibrillation documented in this encounter [facility] note* Diagnosis Atrial fibrillation, persistent (HCC)- Primary Atrial fibrillation Obstructive sleep apnea syndrome Obstructive sleep apnea (adult) (pediatric) Left atrial thrombus Other ill-defined heart disease Ejection fraction < 50% Other symptoms involving cardiovascular system documented in this encounter [facility] note* Diagnosis Persistent atrial fibrillation (HCC)- Primary Atrial fibrillation IRB 20461 MAP AF PI: Dr. Shannon Dozier documented in this encounter [facility] note* Diagnosis IRB 20-461 MAP AF PI: Dr. Shannon Dozier- Primary documented in this encounter [facility] note* Diagnosis Persistent atrial fibrillation (HCC)- Primary Atrial fibrillation Primary hypertension Unspecified essential hypertension documented in this encounter [facility] Discharge instructions No data available for this section General Surgery [place] Progress note No data available for this section General Surgery [place] Reason for referral (narrative)* Outpatient Procedure (Routine) - Pending Review Specialty Diagnoses / Procedures Referred By Gagan t Referred To [facility] Diagnoses Atrial fibrillation, persistent (HCC) Procedures ECHO ECHO TTHRC R-T 2D W/WOM-MODE COMPL SPEC&COLR D Jessica Winter MD [address] [place] [address] [facility] [address] [place] [address] Referral ID Status Reason Start Date Expiration Date Visits Requested Visits Authorized [id number] Pending Review Auto-Generat ed Referral 06/23/2021 06/23/2022 1 1 [facility] for referral (narrative)* Outpatient Procedure (Routine) - Authorized Specialty Diagnoses / Procedures Referred By Contac t Referred To [facility] Diagnoses Persistent atrial fibrillation (HCC) Research study patient Procedures ECG COMPLETE ECG ROUTINE ECG W/LEAST 12 LDS W/I&R Jessica Winter MD [address] [place] [address] [address] Referral ID Status Reason Start Date Expiration Date Visits Requested Visits Authorized [id number] Authorized Auto-Generat ed Referral 06/24/2021 06/24/2022 1 1 [facility] for referral (narrative)* Outpatient Procedure (Routine) - Authorized Specialty Diagnoses / Procedures Referred By Contac t Referred To [facility] Diagnoses Persistent atrial fibrillation (HCC) Research study patient Procedures ECG COMPLETE ECG ROUTINE ECG W/LEAST 12 LDS W/I&R Jessica Winter MD [address] [place] [address] [facility] [address] [place] [id number] Referral ID Status Reason Start Date Expiration Date Visits Requested Visits Authorized [id number] Authorized Auto-Generat ed Referral 09/30/2021 09/30/2022 1 1 [facility] Summary Purpose Family History No Family History Records FoundNo Family History Records FoundNo Family History Records FoundNo Family History Records FoundNo Family History Records FoundNo Family History Records Found Advance Directives No Advanced Directives Records FoundDocuments on File Type Date Recorded Patient Trans Router Expl anation Advance Directive(s) 01/14/2021 9:41 AM Advance Directive(s) 01/13/2021 9:43 AM Advance Directive(s) 11/06/2020 9:05 AM Advance Directive(s) 11/13/2018 5:12 AM Advance Directive(s) 10/27/2018 12:26 PM Advance Directive(s) 08/14/2018 10:04 AM Advance Directive(s) 07/31/2018 11:29 AM Documents on File Type Date Recorded Patient Trans Router Expl anation Advance Directive(s) 01/14/2021 9:41 AM Advance Directive(s) 01/13/2021 9:43 AM Advance Directive(s) 11/06/2020 9:05 AM Advance Directive(s) 11/13/2018 5:12 AM Advance Directive(s) 10/27/2018 12:26 PM Advance Directive(s) 08/14/2018 10:04 AM Advance Directive(s) 07/31/2018 11:29 AM Reason for Referral Specialty Diagnoses / Procedures Referred By Gagan alvarez Referred To Contact Procedures CARDIOVASCULAR MEDICINE OP FOLLOW UP APPT ORDER Jessica Winter MD [address] [place] [address] Referral ID Status Reason Start Date Expiration Date Visits Requested Visits Authorized [id number] Ref Not Required PCP Requested Referral 03/08/2023 03/07/2024 1 1 Additional Source Comments (unrecognized sect ion and content) No Status Records FoundNo Status Records FoundNo Status Records FoundNo Status Records FoundNo Status Records FoundNo Status Records Found INFORMATION SOURCE (unrecogn ized section and content) DATE CREATED AUTHOR 04/27/2019 [facility] DATE CREATED AUTHOR AUTHOR'S ORGANIZ ATION 02/20/2022 [facility] DATE CREATED AUTHOR AUTHOR'S ORGANIZ ATION 05/29/2022 [facility] DATE CREATED AUTHOR AUTHOR'S ORGANIZ ATION 11/18/2022 [facility] DATE CREATED AUTHOR AUTHOR'S ORGANIZ ATION 03/22/2023 [facility] DATE CREATED AUTHOR AUTHOR'S ORGANIZ ATION 08/24/2023 [facility] EPIC Source Comments (unrecognize d section and content) In the event this informatio n is protected by the Federal Confidentiality of Alcohol and Drug Abuse Patient Records regulations: The Federal rules restrict any use of the information to criminally investigate or prosecute any alcohol or drug abuse patient.[facility] the event this information is protected by the Federal Confidentiality of Alcohol and Drug Abuse Patient Records regulations: The Federal rules restrict any use of the information to criminally investigate or prosecute any alcohol or drug abuse patient.[facility] Health[facility] the event this information is protected by the Federal Confidentiality of Alcohol and Drug Abuse Patient Records regulations: The Federal rules restrict any use of the information to criminally investigate or prosecute any alcohol or drug abuse patient.[facility] HealthIn the event this information is protected by the Federal Confidentiality of Alcohol and Drug Abuse Patient Records regulations: The Federal rules restrict any use of the information to criminally investigate or prosecute any alcohol or drug abuse patient.[facility] HealthIn the event this information is protected by the Federal Confidentiality of Alcohol and Drug Abuse Patient Records regulations: The Federal rules restrict any use of the information to criminally investigate or prosecute any alcohol or drug abuse patient.[facility] HealthIn the event this information is protected by the Federal Confidentiality of Alcohol and Drug Abuse Patient Records regulations: The Federal rules restrict any use of the information to criminally investigate or prosecute any alcohol or drug abuse patient.[facility] HealthIn the event this information is protected by the Federal Confidentiality of Alcohol and Drug Abuse Patient Records regulations: The Federal rules restrict any use of the information to criminally investigate or prosecute any alcohol or drug abuse patient.[facility] HealthIn the event this information is protected by the Federal Confidentiality of Alcohol and Drug Abuse Patient Records regulations: The Federal rules restrict any use of the information to criminally investigate or prosecute any alcohol or drug abuse patient.[facility] HealthIn the event this information is protected by the Federal Confidentiality of Alcohol and Drug Abuse Patient Records regulations: The Federal rules restrict any use of the information to criminally investigate or prosecute any alcohol or drug abuse patient.[facility] HealthIn the event this information is protected by the Federal Confidentiality of Alcohol and Drug Abuse Patient Records regulations: The Federal rules restrict any use of the information to criminally investigate or prosecute any alcohol or drug abuse patient.[facility] HealthIn the event this information is protected by the Federal Confidentiality of Alcohol and Drug Abuse Patient Records regulations: The Federal rules restrict any use of the information to criminally investigate or prosecute any alcohol or drug abuse patient.[facility] HealthIn the event this information is protected by the Federal Confidentiality of Alcohol and Drug Abuse Patient Records regulations: The Federal rules restrict any use of the information to criminally investigate or prosecute any alcohol or drug abuse patient.[facility] HealthIn the event this information is protected by the Federal Confidentiality of Alcohol and Drug Abuse Patient Records regulations: The Federal rules restrict any use of the information to criminally investigate or prosecute any alcohol or drug abuse patient.[facility] HealthIn the event this information is protected by the Federal Confidentiality of Alcohol and Drug Abuse Patient Records regulations: The Federal rules restrict any use of the information to criminally investigate or prosecute any alcohol or drug abuse patient.[facility] HealthIn the event this information is protected by the Federal Confidentiality of Alcohol and Drug Abuse Patient Records regulations: The Federal rules restrict any use of the information to criminally investigate or prosecute any alcohol or drug abuse patient.[facility] HealthIn the event this information is protected by the Federal Confidentiality of Alcohol and Drug Abuse Patient Records regulations: The Federal rules restrict any use of the information to criminally investigate or prosecute any alcohol or drug abuse patient.[facility] HealthIn the event this information is protected by the Federal Confidentiality of Alcohol and Drug Abuse Patient Records regulations: The Federal rules restrict any use of the information to criminally investigate or prosecute any alcohol or drug abuse patient.[facility] Reason for Visit (unrecogniz ed section and content) Reason Comments Research IRB 20-461 MAP AF Reason Comments Holter Monitor Application 24 Reason Comments Prior Auth from Cover My Meds Reason Comments Medication Problem Prior auth denial Reason Comments Refill Request Reason Comments Event zio Reason Comments Research F/U IRB 20-461 MAP AF PI : Dr. Shannon Dozier Care Teams (unrecognized sec tion and content) Hospice Rn Relationship Specialty Start Date End Date Michael Spangler [address] [place] [address] PCP - General Family Practice 07/18/18 Donavon Morales [address] [place] [address] Referring Cardiology 07/06/18 Hospice Rn Relationship Specialty Start Date End Date Michael Spangler [address] [place] [address] PCP - General Family Practice 07/18/18 Donavon Morales [address] [place] [facility] [place] [address] Referring Cardiology 07/06/18 Hospice Rn Relationship Specialty Start Date End Date Michael Spangler [address] [place] [address] PCP - General Family Practice 07/18/18 Donavon Morales [address] [place] [facility] [place] [address] Referring Cardiology 07/06/18 Hospice Rn Relationship Specialty Start Date End Date Michael Spangler [address] [place] [address] PCP - General Family Practice 07/18/18 Donavon Morales [address] [place] [facility] [place] [address] Referring Cardiology 07/06/18 Hospice Rn Relationship Specialty Start Date End Date Michael Spangler [address] [place] [address] PCP - General Family Practice 07/18/18 Donavon Morales [address] [place] [facility] [place] [place] [address] Referring Cardiology 07/06/18 Hospice Rn Relationship Specialty Start Date End Date Crys Michael Gregory [address] [place] [address] PCP - General Family Practice 07/18/18 Donavon Morales [address] [place] [facility] [place] [address] Referring Cardiology 07/06/18 Hospice Rn Relationship Specialty Start Date End Date Michael Spangler [address] [place] [address] PCP - General Family Practice 07/18/18 Donavon Morales [address] [place] [facility] [place] [address] Referring Cardiology 07/06/18 Hospice Rn Relationship Specialty Start Date End Date Michael Spangler [address] [place] [address] PCP - General Family Practice 07/18/18 Donavon Morales [address] [place] [facility] [place] [address] Referring Cardiology 07/06/18 Hospice Rn Relationship Specialty Start Date End Date Michael Spangler [address] [place] [address] PCP - General Family Practice 07/18/18 Donavon Morales [address] [place] [facility] [place] [address] Referring Cardiology 07/06/18 Hospice Rn Relationship Specialty Start Date End Date Michael Spangler [address] [place] [address] PCP - General Family Practice 07/18/18 Donavon Morales [address] [place] [facility] [place] [address] Referring Cardiology 07/06/18 Hospice Rn Relationship Specialty Start Date End Date Michael Spangler [address] [place] [address] PCP - General Family Medicine 07/18/18 Donavon Morales [address] [place] [facility] [place] [address] Referring Cardiology 07/06/18 Hospice Rn Relationship Specialty Start Date End Date Michael Spangler [address] [place] [address] PCP - General Family Medicine 07/18/18 Donavon Morales [address] [place] [facility] [place] [address] Referring Cardiology 07/06/18 Hospice Rn Relationship Specialty Start Date End Date Michael Spangler [address] [place] [address] PCP - General Family Medicine 07/18/18 Donavon Morales MD [address] [place] [facility] [place] [place] [address] Referring Cardiology 07/06/18 Hospice Rn Relationship Specialty Start Date End Date Michael Spangler [address] [place] [address] PCP - General Family Medicine 07/18/18 Donavon Morales MD [address] [place] [facility] [address] Referring Cardiology 07/06/18 Hospice Rn Relationship Specialty Start Date End Date Michael Spangler [address] [place] [address] PCP - General Family Medicine 07/18/18 Donavon Morales MD [address] [place] [facility] [place] [place] [address] Referring Cardiology 07/06/18 Hospice Rn Relationship Specialty Start Date End Date Michael Spangler [address] [place] [address] PCP - General Family Medicine 07/18/18 Donavon Morales MD [address] [place] [address] Referring Cardiology 07/06/18 FOR RECORDS PERTAINING TO PATIENTS WHO ARE OR HAVE BEEN ENROLLED IN A CHEMICAL DEPENDENCY/SUBSTANCEABUSE PROGRAM, SOME INFORMATION MAY BE OMITTED. This clinical summary was aggregated from multiple sources. Caution should be exercised in using it in the provision of clinical care. This summary normalizes information from multiple sources, and as a consequence, information in this document may materially change the coding, format and clinical context of patient data. In addition, data may be omitted in some cases. CLINICAL DECISIONS SHOULD BE BASED ON THE PRIMARY CLINICAL RECORDS. [facility] [employer] [facility]. provides no warranty or guarantee of the accuracy or completeness of information in this document.
[2023-08-27 08:47] LABS: Basophils Absolute Auto 0.1 10^3/uL (0.0-0.1); Basophils Percent Auto 0.6 % (0.2-2.0); Eosinophils Absolute Auto 0.2 10^3/uL (0.0-0.7); Eosinophils Percent Auto 2.6 % (0.9-7.0); Hematocrit 44.3 % (42.0-54.0); Hemoglobin 14.5 g/dL (14.0-18.0); Immature Granulocytes Abs Auto 0.01 10^3/uL (0.00-0.03); Immature Granulocytes Pct Auto 0.1 % (0.0-0.5); Lymphocytes Absolute Auto 2.1 10^3/uL (1.2-3.8); Lymphocytes Percent Auto 26.6 % (20.5-60.0); Mean Corpuscular HGB Conc 32.7 g/dL (29.9-35.2); Mean Corpuscular Hemoglobin 28.2 pg (25.9-34.0); Mean Corpuscular Volume 86.2 fL (80.0-94.0); Mean Platelet Volume 9.3 fL (9.5-13.5); Monocytes Absolute Auto 0.8 10^3/uL (0.3-0.8); Monocytes Percent Auto 9.8 % (1.7-12.0); Neutrophils Absolute Auto 4.7 10^3/uL (1.4-6.5); Neutrophils Percent Auto 60.3 % (43.0-75.0); Platelet Count 187 10^3/uL (150-450); Red Blood Count 5.14 10^6/uL (4.70-6.10); Red Cell Distribution Width 13.6 % (11.0-15.0); White Blood Count 7.8 10^3/uL (4.0-11.0)
[2023-08-27 09:33] LABS: Microalbumin Urine Random <1.3 mg/dL (<=30.0)
[2023-08-27 09:38] LABS: Alanine Aminotransferase 75 U/L (16-63); Albumin Globulin Ratio 1.1; Albumin Level 3.7 g/dL (3.4-5.0); Alkaline Phosphatase 48 U/L (46-116); Anion Gap 10.8; Aspartate Amino Transferase 37 U/L (15-37); BUN Creatinine Ratio 18.2; Bilirubin Direct 0.2 mg/dL (0.0-0.2); Bilirubin Total 0.6 mg/dL (0.2-1.0); Calcium 8.9 mg/dL (8.5-10.1); Carbon Dioxide 30.2 mmol/L (21.0-32.0); Chloride 104 mmol/L (98-107); Chol HDL Ratio 3.2; Cholesterol 104 mg/dL (<=200); Estimated GFR (African America >60 (>=60); Estimated GFR (Non-African Ame >60 (>=60); Globulin 3.3 g/dL; Glucose 120 mg/dL (74-106); HDL Cholesterol 32 mg/dL (40-60); Sodium 141 mmol/L (136-145); Thyroid Stimulating Hormone 1.597 uIU/mL (0.358-3.740); Triglycerides 101 mg/dL (<=150); VLDL CHOLESTEROL 20.2 mg/dL
[2023-08-27 09:51] LABS: Prostate Specific Antigen Dx 2.32 ng/mL (<=4.00)
[2023-08-27 15:58] LABS: Estimated Average Glucose 128 mg/dL; Glycohemoglobin A1C 6.1 % (4.5-6.2)
== END 2023-08-27 07:45 | disposition home or self-care (01) ==
LOC: LAB 07:46
PROVIDERS: PCP Family Medicine; Visit Provider Family Medicine
DX: E11.65 Type 2 diabetes mellitus with hyperglycemia (principal); E66.9 Obesity, unspecified; I10 Essential (primary) hypertension; Z79.899 Other long term (current) drug therapy; Z12.5 Encounter for screening for malignant neoplasm of prostate
CPT/HCPCS: 36415; 80048; 80061; 80076; 82043; 83036; 84153; 84443; 85025

== ENCOUNTER 2024-02-13 09:15 | Outpatient (OUT) | payer BC, SELFPAY ==
[2024-02-13 11:24] LABS: Estimated Average Glucose 166 mg/dL; Glycohemoglobin A1C 7.4 % (4.5-6.2)
== END 2024-02-13 09:16 | disposition home or self-care (01) ==
LOC: LAB 09:16
PROVIDERS: PCP Family Medicine; Visit Provider Family Medicine
DX: E11.65 Type 2 diabetes mellitus with hyperglycemia (principal)
CPT/HCPCS: 36415; 83036

== ENCOUNTER 2024-09-01 09:15 | Outpatient (OUT) | payer BC, SELFPAY ==
--- OUTSIDE RECORDS SUMMARY | 2024-09-01 09:18 | XMS_ITS | Encounter Summary ---
Author Organization [facility] Address [address] [place] [address] Care Team Providers Care Sports Equipment Repairer Name Role Phone Donavon Morales MD Unavailable + [phone] Michael Plummer MD Primary Care Provider [phone] Source Comments In the event this information is protected by the Federal Confidentiality of Alcohol and Drug AbusePatient Records regulations: The Federal rules restrict any use of the information to criminally investigate or prosecute any alcohol or drug abuse patient.[facility] Encounter Details Date Type Department Care Team (Late st Contact Info) Description 03/31/2021 Patient Msg Cardiology [address] [place] [address] Provider, [facility] COVID Self Check Instructions Social History Tobacco Use Types Packs/Day Years Used Date Smoking Tobacco: Former Cigarettes Q uit: 2018 Smokeless Tobacco: Never Alcohol Use Standard Drinks/Week Comments Yes 0 (1 standard drink = 0.6 oz pur e alcohol) rarely PHQ-2 Answer Date Recorded PHQ2 Score 0 11/13/2018 Area Deprivation Index Answer Date Vaibhav rded National Score (1-100), lower number is lower ri sk Not on file 03/11/2020 State Score (1-10), lower number is lower risk N ot on file 03/11/2020 Data from: https://www.neighborhoodatlas.medicine.[facility]/. Last address used for calculation Not on file 03/11/2020 Sex and Gender Information Value Date Recorded Sex Assigned at Male 04/07/2021 6:28 PM EST Legal Sex Male 11:58 AM EDT Gender Identity Male 04/07/2021 6:28 PM EST Sexual Orientation Straight 04/07/2021 6: 28 PM EST COVID-19 Exposure Response Date Recorded In the last month, have you been in contact with someone who was confirmed or suspected to have Coronavirus / COVID-19? Unable to assess 03/31/2021 3:46 PM EST documented as of this encounter Functional Status * Are you deaf or do you have serious difficulty hearing? Answer Date of Assessment Author No 03/19/2021 5:23 PM Aylin Salvador RN * Are you blind or do you have serious difficulty seeing, even when wearing glasses? Answer Date of Assessment Author No 03/19/2021 5:23 PM Aylin Salvador RN * Do you have serious difficulty walking or climbing stairs? Answer Date of Assessment Author No 03/19/2021 5:23 PM Aylin Salvador RN * Do you have difficulty dressing or bathing? Answer Date of Assessment Author No 03/19/2021 5:23 PM Aylin Salvador RN * Because of a physical, mental, or emotional condition, do you have difficulty doing errands alone such as visiting a doctor's office or shopping? Answer Date of Assessment Author No 03/19/2021 5:23 PM Aylin Salvador RN documented as of this encounter Mental Status * Because of a physical, mental, or emotional condition, do you have serious difficulty concentrating, remembering, or making decisions? Answer Entry Date Author No 03/19/2021 5:23 PM Aylin Salvador RN documented in this encounter Plan of Treatment Not on file documented as of this encounter Visit Diagnoses Not on filedocumented in this encounter Additional Health Concerns Infection Onset Date Last Indicated Resolved Time COVID-19 Rule-Out 04/01/2021 04/06/2021 04/07/2021 12:40 PM EST documented as of this encounter Care Teams Sports Equipment Repairer Relationship Specialty Start Date End Date Michael Plummer MD [address] [place] [address] PCP - General Family Medicine 07/18/18 Donavon Morales MD [address] [place] [address] Referring Cardiology 07/06/18 documented as of this encounter
--- OUTSIDE RECORDS SUMMARY | 2024-09-01 09:18 | XMS_ITS | Encounter Summary ---
Author Organization [facility] Address [address] [place] [address] Care Team Providers Care Detective Chief Name Role Phone Donavon Morales MD Unavailable + [phone] Michael Plummer MD Primary Care Provider [phone] Source Comments In the event this information is protected by the Federal Confidentiality of Alcohol and Drug AbusePatient Records regulations: The Federal rules restrict any use of the information to criminally investigate or prosecute any alcohol or drug abuse patient.[facility] Reason for Visit * Reason Comments Refill Request Encounter Details Date Type Department Care Team (Late st Contact Info) Description 09/01/2024 Refill Cardiology [address], [place] [id number] Jessica Winter MD [address] [place] [address] Refill Request Social History Tobacco Use Types Packs/Day Years Used Date Smoking Tobacco: Former Cigarettes Q uit: 2018 Smokeless Tobacco: Never Alcohol Use Standard Drinks/Week Comments Yes 0 (1 standard drink = 0.6 oz pur e alcohol) rarely PHQ-2 Answer Date Recorded PHQ2 Score 0 11/13/2018 Area Deprivation Index Answer Date Vaibhav rded National Score (1-100), lower number is lower ri sk 68 03/08/2023 State Score (1-10), lower number is lower risk 5 03/08/2023 Data from: https://www.neighborhoodatlas.medicine.[facility]/. Last address used for calculation [address] 03/08/2023 Sex and Gender Information Value Date Recorded Sex Assigned at Male 04/07/2021 6:28 PM EST Legal Sex Male 11:58 AM EDT Gender Identity Male 04/07/2021 6:28 PM EST Sexual Orientation Straight 04/07/2021 6: 28 PM EST documented as of this encounter [...] on file documented as of this encounter Goals Goal Patient Goal Type Associated Problems Recent Progress Patient-Stated? Author Blood Pressure < 130/80 Blood Pressure 136/66(2022 10:47 AM EST) Sue Mc documented as of this encounter Visit Diagnoses Not on filedocumented in this encounter Care Teams Detective Chief Relationship Specialty Start Date End Date Michael Plummer MD [address] [place] [address] PCP - General Family Medicine 07/18/18 Donavon Morales MD [address] [place] [address] Referring Cardiology 07/06/18 documented as of this encounter
--- OUTSIDE RECORDS SUMMARY | 2024-09-01 09:18 | XMS_ITS | Encounter Summary ---
Author Organization [facility] Address [address] [place] [address] Care Team Providers Care Hat And Cap Drying Room Attendant Name Role Phone Michael Plummer MD Unavailable Michael Plummer MD Primary Care Provider [phone] Reason for Visit * Reason Comments Med Refill Encounter Details Date Type Department Care Team (Late st Contact Info) Description 06/23[facility]24 [facility] [address] [place] [id number] Michael Plummer MD [address] [place] [phone] Type 2 diabetes mellitus with hyperglycemia, without long-term current use of insulin ([facility]) Social History Tobacco Use Types Packs/Day Years Used Date Smoking Tobacco: Former Cigarettes 0.5 20 Smokeless Tobacco: Never Alcohol Use Standard Drinks/Week Comments Not Currently 1 (1 standard drink = 0.6 oz pur e alcohol) rare Social Connection and Isolation Panel [NHANES] A nswer Date Recorded Frequency of Communication with Friends and Fami ly Not on file 08/03/2023 How often do you get togethe r with friends or relatives? Patient declined 08/03/2023 How often do you attend episcopalian or hoahaoism serv ices? Patient declined 08/03/2023 Do you belong to any clubs o r organizations such as episcopalian groups, unions, fraternal or athletic groups, or school groups? Patient declined 08/03/2023 How often do you attend meet ings of the clubs or organizations you belong to? Patient declined 08/03/2023 Are you , , di vorced, , never , or living with a partner? Patient declined 08/03/2023 AUDIT-C Answer Date Recorded Q1: How often do you have a drink containing alc ohol? Patient declined 08/03/2023 Q2: How many drinks containi ng alcohol do you have on a typical day when you are drinking? Patient declined 08/03/2023 Q3: How often do you have si x or more drinks on one occasion? Patient declined 08/03/2023 Overall Financial Resource Strain (CARDIA) Answe r Date Recorded How hard is it for you to pa y for the very basics like food, housing, medical care, and heating? Patient declined 08/03/2023 [facility] - Occupational Stress Questionnaire Answer Date Recorded Do you feel stress - tense, restless, nervous, or anxious, or unable to sleep at night because your mind is troubled all the time - these days? Patient declined 08/03/2023 Exercise Vital Sign Answer Date Recorde d On average, how many days pe r week do you engage in moderate to strenuous exercise (like a brisk walk)? Patient declined On average, how many minutes do you engage in exercise at this level? Patient declined 08/03/2023 Hunger Vital Sign Answer Date Recorded Within the past 12 months, y ou worried that your food would run out before you got the money to buy more. Patient declined Within the past 12 months, t he food you bought just didn't last and you didn't have money to get more. Patient declined 04/2023 PRAPARE - Transportation Answer Date Re corded In the past 12 months, has l ack of transportation kept you from medical appointments or from getting medications? Patient declined 08/03/2023 In the past 12 months, has l ack of transportation kept you from meetings, work, or from getting things needed for daily living? Patient declined 08/03/2023 Housing Stability Vital Sign Answer Matt e Recorded In the last 12 months, was t here a time when you were not able to pay the mortgage or rent on time? Patient declined 08/03/19 24 Number of Places Lived in the Last Year Not on f ile 08/03/2023 In the last 12 months, was t here a time when you did not have a steady place to sleep or slept in a senior care (including now)? Patient declined 08/03/2023 Sex and Gender Information Value Date Recorded Sex Assigned at Not on file Legal Sex Male 8:26 AM EST Gender Identity Not on file Sexual Orientation Not on file documented as of this encounter Miscellaneous Notes * Telephone Encounter - [facility] - 06/25/2024 9:03 AM EDT MEDICATION SENT TO [facility] documented in this encounter Plan of Treatment Upcoming Encounters Date Type Department Care Team (Late st Contact Info) Description 02/08/2025 9:00 AM EST Office Visit [facility] [address] [place] [address] Michael Plummer MD [address] [place] [phone] documented as of this encounter Visit Diagnoses Diagnosis Type 2 diabetes mellitus with hyperglycemia, without long-term current use of insulin ([facility]) documented in this encounter Care Teams Hat And Cap Drying Room Attendant Relationship Specialty Start Date End Date Michael Plummer MD [address] [place] [id number] PCP - [facility] 04/04/23 Michael Plummer MD [address] [place] [phone] PCP - General Family Medicine 08/10/23 documented as of this encounter
--- OUTSIDE RECORDS SUMMARY | 2024-09-01 09:18 | XMS_ITS | Encounter Summary ---
Author Organization [facility] Address [address] [place] [address] Care Team Providers Care Office Machines Teacher Name Role Phone Donavon Morales MD Unavailable + [phone] Michael Plummer MD Primary Care Provider [phone] Source Comments In the event this information is protected by the Federal Confidentiality of Alcohol and Drug AbusePatient Records regulations: The Federal rules restrict any use of the information to criminally investigate or prosecute any alcohol or drug abuse patient.[facility] Encounter Details Date Type Department Care Team (Late st Contact Info) Description 01/08/2019 Get Medical Advice Cardiology [address] [place] [address] Jessica Winter MD [address] [place] [address] RE: Test Result Question Social History Tobacco Use Types Packs/Day Years Used Date Smoking Tobacco: Former Smokeless Tobacco: Never Alcohol Use Standard Drinks/Week Comments Yes 0 (1 standard drink = 0.6 oz pur e alcohol) rarely PHQ-2 Answer Date Recorded PHQ2 Score 0 11/13/2018 Sex and Gender Information Value Date Recorded Sex Assigned at Male 04/07/2021 6:28 PM EST Legal Sex Male 11:58 AM EDT Gender Identity Male 04/07/2021 6:28 PM EST Sexual Orientation Straight 04/07/2021 6: 28 PM EST documented as of this encounter Functional Status * Are you deaf or do you have serious difficulty hearing? Answer Date of Assessment Author No 11/14/2018 9:27 AM Bia Putnam RN * Are you blind or do you have serious difficulty seeing, even when wearing glasses? Answer Date of Assessment Author No 11/14/2018 9:27 AM Bia Putnam RN * Do you have serious difficulty walking or climbing stairs? Answer Date of Assessment Author No 11/14/2018 9:27 AM Bia Putnam RN * Do you have difficulty dressing or bathing? Answer Date of Assessment Author No 11/14/2018 9:27 AM Bia Putnam RN * Because of a physical, mental, or emotional condition, do you have difficulty doing errands alone such as visiting a doctor's office or shopping? Answer Date of Assessment Author No 11/14/2018 9:27 AM Bia Putnam RN documented as of this encounter Mental Status * Because of a physical, mental, or emotional condition, do you have serious difficulty concentrating, remembering, or making decisions? Answer Entry Date Author No 11/14/2018 9:27 AM Bia Putnam RN documented in this encounter Plan of Treatment Not on file documented as of this encounter Visit Diagnoses Not on filedocumented in this encounter Additional Health Concerns Infection Onset Date Last Indicated Resolved Time COVID-19 Rule-Out 03/06/2021 03/18/2021 03/19/2021 12:39 AM EST COVID-19 Rule-Out 04/01/2021 04/06/2021 04/07/2021 12:40 PM EST documented as of this encounter Care Teams Office Machines Teacher Relationship Specialty Start Date End Date Michael Plummer MD [address] [place] [address] PCP - General Family Medicine 07/18/18 Donavon Morales MD [address] [place] [address] Referring Cardiology 07/06/18 documented as of this encounter
--- OUTSIDE RECORDS SUMMARY | 2024-09-01 09:18 | XMS_ITS | Clinical Summary ---
Author Organization [facility] Address [address] [place] [id number] Care Team Providers Care Tie Presser Name Role Phone Donavon Morales MD Unavailable + [phone] Michael Plummer MD Primary Care Provider [phone] Allergies Active Allergy Reactions Criticality Noted Date Comments Penicillin Unknown 07/18/2018 Medications cholecalciferol (VITAMIN D3) 50 mcg (2,000 unit) tablet Take 2,000 Units by mouth once daily. Active lisinopril (ZESTRIL, PRINIVIL) 20 mg tablet Take 20 mg by mouth twice daily. Active metFORMIN (GLUCOPHAGE) 500 mg tablet Take 500 mg by mouth two times a day with meals. Active OZEMPIC 1 mg/dose (4 mg/3 mL) pen one time a week. 02/14/2023 Active hydrOXYzine HCl (ATARAX) 25 mg tablet Take 25 mg by mouth four times a day as needed. Active ELIQUIS 5 mg tab(s) take 1 tablet by mouth twice a day 180 tablet 3 08/08/2023 Active metoprolol succinate ER (TOPROL XL) 25 mg 24 hr tablet take 1 tablet by mouth twice a day 180 tablet 3 01/09/2024 Active Active Problems Patient Care Coordination No te Formatting of this note migh t be different from the original. 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 Problem Noted Date Diagnosed Date IRB 20-461 MAP AF PI: Dr. 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 Overview (11/03/2018): per echo Encounters Date Type Department Care Team Description 09/01/2024 Refill [address] [place] [address] Jessica Winter MD Refill Request from Last 3 Months Immunizations Immunization Administration Dates Next Due tetanus diphtheria pertussis (Tdap) vaccine, age 7+ yr (ADACEL, BOOSTRIX) 07/06/2010 Family History Medical History Relation Comments Diabetes Brother 1 Heart disease Brother 1 Hypertension Brother 2 Coronary Artery Disease Father s/p CABG Heart Mother AF Hypertension Mother atrial fibrillation Mother Heart Sister MVP Relation Status Comments Brother 1 Alive Brother 2 Alive Father Mother Sister Alive Social History Tobacco Use Types Packs/Day Years Used Date Smoking Tobacco: Former Cigarettes Q uit: 2018 Smokeless Tobacco: Never Tobacco Cessation:Counseling Given: Not Answered Alcohol Use Standard Drinks/Week Comments Yes 0 (1 standard drink = 0.6 oz pur e alcohol) rarely PHQ-2 Answer Date Recorded PHQ2 Score 0 11/13/2018 Area Deprivation Index Answer Date Vaibhav rded National Score (1-100), lower number is lower ri sk 68 03/08/2023 State Score (1-10), lower number is lower risk 5 03/08/2023 Data from: https://www.neighborhoodatlas.medicine.[facility].edu/. Last address used for calculation [address] 03/08/2023 Sex and Gender Information Value Date Recorded Sex Assigned at Male 04/07/2021 6:28 PM EST Legal Sex Male 11:58 AM EDT Gender Identity Male 04/07/2021 6:28 PM EST Sexual Orientation Straight 04/07/2021 6: 28 PM EST Last Filed Vital Signs Vital Sign Reading Time Taken Comments Blood Pressure 136/66 03/08/2023 10:47 AM EST Pulse 70 03/08/2023 10:47 AM EST Temperature 36.6 C (97.9 F) 03/19/2021 12:25 PM EST Respiratory Rate 16 03/19/2021 5:00 PM EST Oxygen Saturation 94% 03/19/2021 5:00 PM EST Inhaled Oxygen Concentration - - Weight 110.7 kg (244 lb) 03/08/2023 10:47 AM EST Height 180.3 cm (5' 11 ) 03/08/2023 10:47 AM EST Body Mass Index 34.03 03/08/2023 10:47 AM EST Plan of Treatment Health Maintenance Due Date Last Done Comments Anxiety Screening 09/07/1979 Depression Screening 09/07/1979 HIV Screening 09/07/1979 Hepatitis C Screening 09/07/[address] Colonography 2006 Colonoscopy 2006 Fecal Occult Blood 2006 Sigmoidoscopy 2006 Pneumococcal Vaccine: 50+ (1 of 1 - PCV) 09/07/2011 Shingrix Vaccine (1 of 2) 09/07/2011 DTaP,Tdap,Td Vaccine (2 - Td or Tdap) 07/06/2020 07/06/2010 Cologuard (FIT-DNA) 08/20/2023 08/19/2020 Colorectal Cancer Screening 08/20/2023 Covid-19 Vaccine (7 - 2023-2 5 season) 2023 02/06/2022, 07/20/2021, 07/09/2020, Additional history exists Diabetes Screening 03/18/2024 03/18/2021, 0 11/07/2020, 11/03/2018, Additional history exists Influenza Vaccine (Season Ended) 2024 Prostate Cancer Screening Discussion 08/17/2026 08/17/2021 RSV Vaccine (1 - 1-dose 75+ series) 2036 Goals Goal Patient Goal Type Associated Problems Recent Progress Patient-Stated? Author Blood Pressure < 130/80 Blood Pressure 136/66(2022 10:47 AM EST) No Sue Tellez Procedures Procedure Name Priority Date/Time Associated Diagnosis Comments BASIC METABOLIC PANEL Routine 03/18/2021 8:56 AM EST Persistent atrial fibrillation (HCC) from Last 3 Months or Most Recently Relevant to Health Maintenance Results * (ABNORMAL) BASIC METABOLIC PNL (03/18/2021 8:56 AM EST) Glucose 184(H) 74 - 99 mg/dL 03/18/2021 3:52 PM [facility] Comment: The [place] Diabetes Association (ADA) provides guidance for cutoff values for fasting glucose and random glucose. The ADA defines fasting as no caloric intake for at least 8 hours. Fasting plasma glucose results between 100 to 125 mg/dL indicate increased risk for diabetes (prediabetes). Fasting plasma glucose results greater than or equal to 126 mg/dL meet the criteria for diagnosis of diabetes. In the absence of unequivocal hyperglycemia, results should be confirmed by repeat testing. In a patient with classic symptoms of hyperglycemia or hyperglycemic crisis, random plasma glucose results greater than or equal to 200 mg/dL meet the criteria for diagnosis of diabetes. Reference: Standards of Medical Care in Diabetes 2016, [place] [employer] Association. Diabetes Care. 2016.39(Suppl 1). BUN 16 9 - 24 mg/dL 03/18/2021 3:52 PM [facility] Creatinine 1.13 0.73 - 1.22 mg/dL 03/18/2021 3:52 PM [facility] Sodium 140 136 - 144 mmol/L 03/18/2021 3:52 PM [facility] Potassium 4.4 3.7 - 5.1 mmol/L 03/18/2021 3:52 PM [facility] Chloride 105 97 - 105 mmol/L 03/18/2021 3:52 PM [facility] CO2 26 22 - 30 mmol/L 03/18/2021 3:52 PM [facility] Anion Gap 9 9 - 18 mmol/L 03/18/2021 3:52 PM [facility] Calcium 9.2 8.5 - 10.2 mg/dL 03/18/2021 3:52 PM [facility] eGFR- >60 03/18/2021 3:52 PM [facility] eGFR-All Other Races >60 . 03/18/2021 3:52 PM EST [facility] Comment: eGFR (Estimated GFR) Units of measure: mL/min/1.73 meters squared eGFR is derived from the reexpressed MDRD Study equation using the following parameters: serum creatinine, age, gender and race. The creatinine assay has been calibrated to be traceable to IDMS. An eGFR <60 mL/min/1.73m2 for >3 months is consistent with chronic kidney disease. Refer to KDOQI guidelines for clinical interpretation. In patients with unstable renal function, e.g. those with acute kidney injury, the eGFR may not accurately reflect actual GFR. Note: On 05/30/2021, the eGFR calculation will be updated to the NKF-ASN Task Force recommended 2020 CKD-EPI creatinine equation which does not include a race variable. For more information or to access a 2020 CKD-EPI calculator, visit the National Kidney Foundation website at kidney.org/professionals/kdoqi/gfr_calculator. Blood OTHER / Unknown 03/18/2021 8 :56 AM EST 03/18/2021 8:59 AM EST us Jessica Winter MD LABORATORY Final Result [facility] [address] [facility] [place] [address] [facility] [address] [place] [address] from Last 3 Months or Most Recently Relevant to Health Maintenance Insurance BLUE ACCESS PPO Care Teams Tie Presser Relationship Specialty Start Date End Date Michael Plummer MD [address] [place] [address] PCP - General Family Medicine 07/18/18 Donavon Morales MD [address] [place] [address] Referring Cardiology 07/06/18
--- OUTSIDE RECORDS SUMMARY | 2024-09-01 09:18 | XMS_ITS | CCD ---
Author Organization [facility] Care Team Providers Care Game Room Attendant Name Role Phone UNKNOWN, PROVIDER Admitting Unavailable UNKNOWN, PROVIDER Attending Unavailable CRISSEREMICHAEL Mckeon Referring Unavailable NADERER, MICHAEL Primary Care Unavailable Donavon Morales Unavailable [phone] Michael Spangler Primary Care Provider CRYS, MICHAEL Primary Care Physician Donavon Morales Unavailable Michael Spangler Primary Care Provider SHAIKH Selwyn MERCEDES Admitting Unavailable FAWWAChandrika, KLEIN H Attending Unavailable NADERER, DR MICHAEL Gregory Primary Care Unavailable NILL, DR OCAMPO Admitting Unavailable NILL, DR OCAMPO Attending Unavailable NADERER, DR MICHAEL Gregory Primary Care Unavailable NILL, DR OCAMPO Admitting Unavailable NILL, DR OCAMPO Attending Unavailable NADERER, DR MICHAEL Gregory Primary Care Unavailable NILL, DR OCAMPO Consulting Unavailable LANGENBERGTRUDY Consulting Unavailable MCCORNACKRADHA Consulting Unavailable NILL, DR OCAMPO Admitting Unavailable NILL, DR OCAMPO Attending Unavailable NADERER, DR MICHAEL Gregory Primary Care Unavailable NADERER, DR MICHAEL Gregory Admitting Unavailable NADERER, DR MICHAEL Gregory Attending Unavailable NADERER, DR MICHAEL Gregory Primary Care Unavailable NADERER, DR MICHAEL Gregory Consulting Unavailable FAWZEYAD, KLEIN H Admitting Unavailable FAWZEYDA, KLEIN H Attending Unavailable NADERER, DR MICHAEL Gregory Primary Care Unavailable WEST, DR EMBER Brambila Consulting Unavailable LUNDBERG, CLAUDIO Consulting Unavailable FAWZEYAD, H Consulting Unavailable NADERER, DR MICHAEL Gregory Admitting Unavailable NADERER, DR MICHAEL Gregory Attending Unavailable NADERER, DR MICHAEL Gregory Primary Care Unavailable NADERER, DR MICHAEL Gregory Consulting Unavailable Donavon Morales Unavailable [phone] Michael Spangler Primary Care Provider Terrence CAPPS Attending Unavailable BRIGETTE, Terrence Mckeon Attending Unavailable Terrence CAPPS Attending Unavailable Donavon Morales MD Unavailable [phone] Michael Spangler Primary Care Provider Michael Spangler MD Unavailable Michael Spangler MD Primary Care Provider Michael Spangler MD Primary Care Provider BLAYNE GUERIN Attending Unavailable NADERER, MICHAEL Attending Unavailable RUSHER, RADHA Gregory Attending Unavailable RUSHER, RADHA Gregory Attending Unavailable RUSHER, RADHA Gregory Attending Unavailable RUSHER, RADHA Gregory Attending Unavailable RUSHER, RADHA Gregory Attending Unavailable NADERER, MICHAEL Attending Unavailable RUSHER, RADHA Gregory Attending Unavailable Allergies Allergy Classification Reported Allergen(s) Allergy Type Date of Onset Reaction(s) Facility (2 sources) Penicillins; 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: [PENICILLINS] Drug allergy (disorder) 8 [facility] Repository (4 sources) Penicillin; 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: [penicillin] Drug Allergy Unknown (qualifier value) [facility] [place] (14 sources) Penicillins Drug Allergy 9 Other, Unknown [facility] Medications Current Medications Medication Drug Class(es) Dates [...] TABLET BY BRYON TH TWICE A DAY atorvastatin 40 mg oral tablet (14 sources) HMG-CoA Reductase Inhibitor Start: take 1 tablet by mouth once daily at bedtime atorvastatin (Lipitor) 40 MG tablet Indications: Type 2 diabetes mellitus with hyperglycemia, without long-term current use of insulin ([facility]) TAKE 1 TABLET BY MOUTH EVERYDAY AT BEDTIME 90 tablet 1 08/06/2024 Active Start: 02-09-2024 take 1 tablet by bryon th at bedtime atorvastatin (Lipitor) 40 MG tablet Indications: Type 2 diabetes mellitus with hyperglycemia, without long-term current use of insulin (CMS/[facility]) TAKE 1 TABLET BY MOUTH AT BEDTIME 90 tablet 1 02/09/2024 Active Start: 08-10-2023 take 1 tablet by bryon th at bedtime atorvastatin (Lipitor) 40 MG tablet Indications: Type 2 diabetes mellitus with hyperglycemia, without long-term current use of insulin ([facility]) Take 1 tablet (40 mg) by mouth at bedtime 30 tablet 5 08/10/2023 Active Blood Glucose Monitoring Suppl (Blood Glucose Monitor System) w/Device kit (2 sources) Start: 08-07-2024 Blood Glucose Monitoring Suppl (Blood Glucose Monitor System) w/Device kit Indications: Type 2 diabetes mellitus with hyperglycemia, without long-term current use of insulin ([facility]) 1 each Daily 1 kit 08/07/2024 Active cholecalciferol 0.05 mg oral tablet (20 sources) Vitamin D Start: 07-17-2024 take 1 tablet by mouth once daily cholecalciferol (Vitamin D-3) 50 MCG (1999 UT) tablet Indications: Vitamin D deficiency, unspecified , Vitamin D deficiency TAKE 1 TABLET BY MOUTH EVERY DAY 30 tablet 5 07/17/2024 Active Start: 12-12-2023 take 1 tablet by bryon th once daily cholecalciferol (Vitamin D-3) 50 MCG (1999 UT) tablet Indications: Vitamin D deficiency, unspecified , Vitamin D deficiency TAKE 1 TABLET BY MOUTH EVERY DAY 30 tablet 5 12/12/2023 Active Comment on above: Take 2,000 Units by mouth once daily. hydrOXYzine hydrochloride 25 mg oral tablet (5 sources) Antihistamine take 1 tablet by mouth every six hours as needed hydrOXYzine HCl (ATARAX) 25 mg tablet Take 25 mg by mouth four times a day as needed. Active Comment on above: Take 25 mg by mouth four times a day as needed. lisinopril 20 mg oral tablet (20 sources) Angiotensin Converting Enzyme Inhibitor Start: 07-03-19 take 1 tablet by mouth twice daily lisinopril 20 MG tablet Indications: Essential hypertension, benign (CMS/HCC) TAKE 1 TABLET BY MOUTH TWICE A DAY 180 tablet 3 07/02/2024 Active Start: 09-03-2020 take 1 tablet by bryon th twice daily lisinopril 20 MG tablet Indications: Essential hypertension, benign (CMS/HCC) TAKE 1 TABLET BY MOUTH TWICE A DAY 180 tablet 3 06/08/2023 Active Comment on above: Take 20 mg by mouth twice daily. 24 hr metFORMIN hydrochloride 500 mg extended release oral tablet (20 sources) Biguanide Start: End: take 1 tablet by mouth twice daily metFORMIN XR (Glucophage-XR) 500 MG 24 hr tablet Indications: Type 2 diabetes mellitus with hyperglycemia (CMS/HCC) TAKE 1 TABLET BY MOUTH TWICE A DAY 180 tablet 3 02/20/2024 Active take 1 tablet by bryon th twice daily at mealtime metFORMIN (GLUCOPHAGE) 500 mg tablet Jayson e 500 mg by mouth two times a day with meals. Active take 1 tablet by bryon th [...] a day 180 tablet 3 01/09/2024 Active Start: 01-13-2021 End: 01-14-2023 take 1 tablet by mouth twice daily metoprolol succinate ER (TOPROL XL) 25 mg 24 hr tablet TAKE 1 TABLET BY MOUTH TWICE A DAY 180 tablet 3 01/08/2022 01/14/2023 Discontinued Start: 09-03-2020 take 1 tablet by bryon th once daily metoprolol 25 mg ER Tab 25 mg = 1 tab(s), Oral, Daily, # 30 tab(s), Refills(s) 0 Start Date: 09/03/20 Status: Ordered Comment on above: Take 1 tablet by bryon th twice daily. TAKE 1 TABLET BY BRYON TH TWICE A DAY Take 1 tablet by bryon th two times a day. OZEMPIC 1 mg/dose (4 mg/3 mL) pen (5 sources) Start: 02-14-2023 OZEMPIC 1 mg/dose (4 mg/3 mL) pen one time a week. 02/14/2023 Active Start: 02-14-2023 OZEMPIC 1 mg/d ose (4 mg/3 mL) pen one time a week. 0 02/14/2023 Active Comment on above: one time a week. predniSONE 50 mg oral tablet (2 sources) Start: 5 End: 5 take 1 tablet by mouth once daily predniSONE (Deltasone) 50 MG tablet Indications: Plantar fasciitis of right foot Take 1 tablet (50 mg) by mouth Daily for 6 days 6 tablet 08/07/2024 08/13/2024 Active 0.25 mg, 0.5 mg dose 1.5 ml semaglutide 1.34 mg/ml pen injector (11 sources) Start: 4 inject 0.5 mg by subcutaneous injection every week semaglutide (Ozempic, 0.25 or 0.5 MG/DOSE,) 2 MG/1.5ML solution pen-injector Indications: Type 2 diabetes mellitus with hyperglycemia, without long-term current use of insulin ([facility]) Inject 0.5 mg under the skin 1 (one) time per week 4 each 5 08/10/2023 Active semaglutide (Ozempic, 1 MG/DOSE,) 4 MG/3ML solution pen-injector (2 sources) Start: 5 inject 1 mg by subcutaneous injection every week semaglutide (Ozempic, 1 MG/DOSE,) 4 MG/3ML solution pen-injector Indications: Type 2 diabetes mellitus with hyperglycemia, without long-term current use of insulin (CMS/HCC) Inject 1 mg under the skin 1 (one) time per week 1 each 11 08/07/2024 Active Vitamin D3 2000 intl units oral tablet (2 sources) Start: 1 take 1 tablet by mouth once daily [...] NaCl (PF) 0.9% 10 mL injection (DEFINITY) Semaglutide,0.25 or 0.5MG/DO S, (Ozempic, 0.25 or 0.5 MG/DOSE,) 2 MG/3ML solution pen-injector (3 sources) Start: 06-25-2024 End: 08-07-2024 Semaglutide,0.25 or 0.5MG/DO S, (Ozempic, 0.25 or 0.5 MG/DOSE,) 2 MG/3ML solution pen-injector Indications: Type 2 diabetes mellitus with hyperglycemia, without long-term current use of insulin (CMS/HCC) INJECT 0.5 MG UNDER THE SKIN 1 (ONE) TIME PER WEEK 3 mL 5 06/25/2024 08/07/2024 Discontinued Start: 06-25-2024 Semaglutide,0. 25 or 0.5MG/DOS, (Ozempic, 0.25 or 0.5 MG/DOSE,) 2 MG/3ML solution pen-injector Indications: Type 2 diabetes mellitus with hyperglycemia, without long-term current use of insulin (CMS/HCC) INJECT 0.5 MG UNDER THE SKIN 1 (ONE) TIME PER WEEK 3 mL 5 06/25/2024 Active 125 ml sodium chloride 9 mg/ ml prefilled syringe (20 sources) Start: 06-03-2020 End: 09-22-2022 sodium chloride 0.9 % (flush ) 10 mL (BD POSIFLUSH) Problems Active Problems Problem Classification Problem Date Documented Date Episodic/Chronic Anxiety disorders (14 sources) Generalized anxiety disorder; 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: [Generalized anxiety disorder] Onset: 08-10-2023 08-10-2023 Chronic Cardiac dysrhythmias (20 sources) Atrial fibrillation; 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: [Unspecified atrial fibrillation] Onset: 08-14-2018 08-17-2018 Chronic Diabetes mellitus with complications (18 sources) Hyperglycemia due to type 2 diabetes mellitus; 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: [Type 2 diabetes mellitus with hyperglycemia] Onset: 08-10-2023 08-10-2023 Chronic Diabetes mellitus without complication (4 sources) Prediabetes; 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: [PREDIABETES] Onset: 02-16-2022 Episodic Esophageal disorders (16 sources) Gastroesophageal reflux disease without esophagitis; 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: [Gastro-esophageal reflux disease without esophagitis] Onset: 08-10-2023 08-10-2023 Chronic Essential hypertension (20 sources) Essential (primary) hypertension; 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: [Essential hypertension] Onset: 10-12-2021 03-08-2023 Chronic Mycoses (4 sources) Onychomycosis due to dermatophyte ; 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: [Tinea unguium] 02-02-2024 Episodic Nutritional deficiencies (15 sources) Vitamin D deficiency, unspecified; 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: [Vitamin D deficiency] Onset: 08-20-2021 08-10-2023 Chronic Other aftercare (3 sources) Long-term current use of anticoagulant; 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: [care home (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] Onset: 09-01-2021 Episodic Other aftercare (2 sources) Postoperative visit; 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: [Encounter for other specified surgical aftercare] 02-13-2024 Episodic Other and ill-defined heart disease (20 sources) Thrombus of left atrium; 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: [Intracardiac [...] neoplasm of descending colon 10-07-2020 Episodic Other connective tissue disease (2 sources) Pain in hallux; 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: [Pain in left toe(s)] 02-02-2024 Episodic Other connective tissue disease (4 sources) Plantar fasciitis of right foot; 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: [Plantar fascial fibromatosis] Onset: 08-07-2024 08-07-2024 Episodic Other nervous system disorders (2 sources) Difficulty walking; 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: [Difficulty in walking, not elsewhere classified] 02-02-2024 Chronic Other nutritional; endocrine; and metabolic disorders (14 sources) Body mass index 30+ - obesity; 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: [Obesity, unspecified] Onset: 08-10-2023 09-03-2020 Chronic Other nutritional; endocrine; and metabolic disorders (2 sources) Obesity caused by energy imbalance; 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: [Class 1 obesity due to excess calories with serious comorbidity and body mass index (BMI) of 34.0 to 34.9 in adult] Onset: 08-10-2023 08-07-2024 Chronic Other skin disorders (2 sources) Dystrophia unguium; 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: [Nail dystrophy] 02-02-2024 Episodic Residual codes; unclassified (20 sources) Sleep apnea; 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: [Sleep apnea, unspecified] Onset: 08-14-2018 08-17-2018 Chronic Residual codes; unclassified (17 sources) Obstructive sleep apnea syndrome; 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: [Obstructive sleep apnea (adult) (pediatric)] Onset: 08-10-2023 Chronic Residual codes; unclassified (1 source) Sleep apnea, unspecified; 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: [SLEEP APNEA UNSPECIFIED] Onset: 10-12-2021 Chronic Spondylosis; intervertebral disc disorders; other back problems (1 source) Other spondylosis with radiculopathy, lumbar region; 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: [OTH SPONDYLS RADICULOPATHY LUMB RGN] Onset: 10-07-2021 Chronic Unclassified (1 source) LOW BACK PAIN, UNSPECIFIED; 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: [LOW BACK PAIN, UNSPECIFIED] Onset: 10-13-2021 Past or Other Problems Problem Classification Problem Date Documented Da te Episodic/Chronic Other aftercare (1 source) care home (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; 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] Onset: 10-12-2021 Episodic Other aftercare (14 sources) Long-term current use of drug therapy; 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] Onset: 08-10-2023 08-10-2023 Episodic Other and unspecified benign neoplasm (4 sources) Personal history of colonic polyps; 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: [PERSONAL HISTORY OF COLONIC POLYPS] Onset: 10-07-2021 Episodic Other and unspecified benign neoplasm (1 source) Polyp of colon; 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: [POLYP OF COLON] Onset: 10-12-2021 Episodic Other and unspecified benign neoplasm (1 source) Benign neoplasm of sigmoid colon; 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: [BENIGN NEOPLASM OF SIGMOID COLON] Onset: 10-12-2021 Episodic Other connective tissue disease (14 sources) Cramp in lower limb; 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: [Cramp and spasm] Onset: 08-10-2023 08-10-2023 Episodic Other screening for suspected conditions (not mental disorders or infectious disease) (20 sources) Stool DNA-based colorectal cancer screening positive; [...] Test Name Value Interpretation Reference Range Facility Follow-Upon 05-30-2024 Follow-Up [id number] Abbey Robert 1960 M Date Provider Department Center 05/30/2024 [id number] GUERIN [facility] SLEEP [facility] Family History Problem Relation Age of Onset Heart disease Mother Diabetes Father Hypothyroidism Father Heart disease Father COPD Brother Diabetes Brother Family Status - Relation Status Age at Mother Father Brother Level of Service:27746 [place] OFFICE/OUTPATIENT ESTABLISHED LOW [facility] 20 MIN Reason for Visit and Comments: Sleep Apnea [348] - 1 year follow up. Machine is working well and sleeping great. Normal [facility] CNPNon 05-21-2024 CNPN Telephone (CARDMN) ABBEY ROBERT ([id number]) 1960 M Date Time Provider Department 05/21/24 JESSICA WINTER During your visit today, we recorded the following information about you: Tiffanie Sutton 05/21/2024 2:36 PM Signed May 21, 2024 Patient Contact Number: [phone] (home) [phone] (cell) Patient last seen within the last year No Reason For Call: Other Issue: Patients is calling. They will be traveling to [place] and was wondering if making such a long travel that Mr. Robert should wear compression socks. Please call to advise. Haroon Atkins, RN 05/21/2024 3:24 PM Signed Returned call to patient's , inquired if patient has has prior issues with swelling during prolonged travel. She reports they have not flown in years so she is unsure. Informed her that if there is a concern regarding LE swelling after sitting for prolonged periods, compression socks could be helpful. She verbalized understanding, denies any additional questions or concerns at this time. Haroon Barber RN Allergies As of Date: 05/21/2024 Noted Allergy Reaction PENICILLIN 07/18/2018 16 - Unknown Date Reviewed: 03/08/2023 Reviewed by: Miri Cunha RN - Fully Assessed Reason for Visit: Patient Question [1127] Prescriptions as of 05/21/2024 - metoprolol succinate ER (TOPROL XL) 25 mg 24 hr tablet take 1 tablet by mouth twice a day - ELIQUIS 5 mg tab(s) take 1 tablet by mouth twice a day - OZEMPIC 1 mg/dose (4 mg/3 mL) pen one time a week. - hydrOXYzine HCl (ATARAX) 25 mg tablet Take 25 mg by mouth four times a day as needed. - metFORMIN (GLUCOPHAGE) 500 mg tablet Take 500 mg by mouth two times a day with meals. - cholecalciferol (VITAMIN D3) 50 mcg (2,000 unit) tablet Take 2,000 Units by mouth once daily. - lisinopril (ZESTRIL, PRINIVIL) 20 mg tablet Take 20 mg by mouth twice daily. 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 Shannon Dozier [Z00.6]03/18/2021 Encounter Status:Closed by HAROON BARBER on 05/21/24 Normal [facility] MLR HEMOGLOBIN A1Con 024 Glucose [Mass/Vol] 166 mg/dL [facility] HbA1c (Bld) [Mass fraction] 7.4 % High 4.5 - 6.2 % [facility] Comment on above: ADA RECOMMENDED LIMI T 4.0 - 6.0 ADA THERAPEUTIC TARGET < 7.0 ACTION SUGGESTED > 7.0 Interpretation and review of laboratory results Abnormal [facility] Reminderson 11-17-2022 Reminders - From: Taylor Bonner LPN To: GSN - Clinical; Sent: 11/17/2022 09:49:20 EDT Show up: 09/21/2027 07:00:00 EDT Subject: colonoscopy recall Due Date/Time: 10/21/2027 07:00:00 EDT Reminder/Recall Patient due for surveillance colonoscopy 10/21/2027. [facility] Pathology Noteon 10-25-2022 Pathology Note [id number] .00CD:127 [facility] Outside Colonoscopyon 2022 Outside Colonoscopy [id number] .00CD:127 [facility] Pre-Certification Formon Pre-Certification Form [id number] 1.00CD:127 [facility] Consent for Procedure/Surger yon 09-23-2022 Consent for Procedure/Surgery [id number]. 00CD:127 [facility] Ambulatory Visit Summaryon 0 09-22-2022 [...] of colon Tubulovillous adenoma of colon Normal [facility] GLYCOHEMOGLOBIN A1Con 2021 ADA RECOMMENDATION SEE BELOW Normal [facility] Comment on above: Result Comment: ADA RECOMMENDED LIMIT 4.0 - 6.0 ADA THERAPEUTIC TARGET < 7.0 ACTION SUGGESTED > 7.0 Performed By: #### A 1C #### [facility] [address] [address] [address] Neelima Bansal Glucose [Mass/Vol] 186 mg/dL Normal [facility] Comment on above: Performed By: #### A 1C #### [facility] [address] [address] [address] Neelima Bansal HbA1c (Bld) [Mass fraction] 8.1 % Critically high 4.5-6.2 [facility] Comment on above: Performed By: #### A 1C #### [facility] [address] [address] [address] Neelima Bansal XR LSPINE 2_3 VIEWSon 2021 XR LSPINE 2_3 VIEWS EXAMINATION: XR LSPINE 2_3 VIEWS HISTORY: Nerve root disorder COMPARISON: [...] EMBER LOPEZ Date: 2021-10-01 21:09 Normal [facility] CBC AUTO DIFFon 08-17-2021 BASO # 0.0 103/ul Normal 0.0-0.1 [facility] Comment on above: Performed By: #### A 1C #### [facility] [address] [place] [address] Dr. Neelima Bansal Basophils/100 WBC (Bld) 0.6 % Normal 0.2-2.0 [facility] Comment on above: Performed By: #### A 1C #### [facility] [address] [place] [address] Dr. Neelima Bansal EO # 0.2 103/ul Normal 0.0-0.7 [facility] Comment on above: Performed By: #### A 1C #### [facility] [address] [place] [address] Dr. Neelima Bansal Eosinophils/100 WBC (Bld) 2.3 % Normal 0.9-7.0 [facility] Comment on above: Performed By: #### A 1C #### [facility] [address] [place] [address] Dr. Neelima Bansal Erythrocyte distribution width (RBC) [Ratio] 13.6 % Normal 11.0-15.0 [facility] Comment on above: Performed By: #### A 1C #### [facility] [address] [place] [address] Dr. Neelima Bansal Hematocrit (Bld) [Volume fraction] 44.6 % Normal 42.0-54.0 [facility] Comment on above: Performed By: #### A 1C #### [facility] [address] [place] [address] Dr. Neelima Bansal Hemoglobin (Bld) [Mass/Vol] 14.6 g/dL Normal 14.0-18.0 [facility] Comment on above: Performed By: #### A 1C #### [facility] [address] [place] [address] Dr. Neelima Bansal IG # 0.01 10e3/ul Normal 0.00-0.03 [facility] Comment on above: Performed By: #### A 1C #### [facility] [address] [place] [address] Dr. Neelima Bansal IG % 0.2 % Normal 0.0-0.5 [facility] Comment on above: Performed By: #### A 1C #### [facility] [address] [place] [address] Dr. Neelima Bansal LYMPH # 1.7 103/ul Normal 1.2-3.8 [facility] Comment on above: Performed By: #### A 1C #### [facility] [address] [place] [address] Dr. Neelima Bansal Lymphocytes/100 WBC (Bld) 26.9 % Normal 20.5-60.0 [facility] Comment on above: Performed By: #### A 1C #### [facility] [address] [place] [address] Dr. Neelima Bansal MANUAL DIFF REQ NO Normal [facility] Comment on above: Performed By: #### A 1C #### [facility] [address] [place] [address] Dr. Neelima Bansal MCH (RBC) [Entitic mass] 28.2 pg Normal 25.9-34.0 [facility] Comment on above: Performed By: #### A 1C #### [facility] [address] [place] [address] Dr. Neelima Bansal MCHC (RBC) [Mass/Vol] 32.7 g/dL Normal 29.9-35.2 [facility] Comment on above: Performed By: #### A 1C #### [facility] [address] [place] [address] Dr. Neelima Bansal MCV (RBC) [Entitic vol] 86.1 fL Normal 80.0-94.0 [facility] Comment on above: Performed By: #### A 1C #### [facility] [address] [place] [address] Dr. Neelima Bansal MONO # 0.6 103/ul Normal 0.3-0.8 [facility] Comment on above: Performed By: #### A 1C #### [facility] [address] [address] [address] Neelima Bansal Monocytes/100 WBC (Bld) 9.8 % Normal 1.7-12.0 [facility] Comment on above: Performed By: #### A 1C #### [facility] [address] [address] [address] Neelima Bansal NEUT # 3.9 103/ul Normal 1.4-6.5 [facility] Comment on above: Performed By: #### A 1C #### [facility] [address] [address] [address] Neelima Bansal Neutrophils/100 WBC (Bld) 60.2 % Normal 43.0-75.0 [facility] Comment on above: Performed By: #### A 1C #### [facility] [address] [place] [address] Dr. Neelima Bansal Platelet mean volume (Bld) [Entitic vol] 9.4 fL Critically low 9.5-13.5 [facility] Comment on above: Performed By: #### A 1C #### [facility] [address] [place] [address] Dr. Neelima Bansal PLT 198 103/ul Normal 150-450 The [facility] Comment on above: Performed By: #### A 1C #### [facility] [address] [address] [address] Neelima Bansal RBC 5.18 106/ul Normal 4.70-6.10 [facility] Comment on above: Performed By: #### A 1C #### [facility] [address] [place] [address] Dr. Neelima Bansal WBC 6.4 103/ul Normal 4.0-11.0 [facility] Comment on above: Performed By: #### A 1C #### [facility] [address] [address] [address] Neelima Bansal GLYCOHEMOGLOBIN A1Con 2021 ADA RECOMMENDATION SEE BELOW Normal [facility] Comment on above: Result Comment: ADA RECOMMENDED LIMIT 4.0 - 6.0 ADA THERAPEUTIC TARGET < 7.0 ACTION SUGGESTED > 7.0 Performed By: #### A 1C #### [facility] [address] [place] [address] Dr. Neelima Bansal Glucose [Mass/Vol] 146 mg/dL Normal [facility] Comment on above: Performed By: #### A 1C #### [facility] [address] [address] [address] Neelima Bansal HbA1c (Bld) [Mass fraction] 6.7 % Critically high 4.5-6.2 [facility] Comment on above: Performed By: #### A 1C #### [facility] [address] [place] [address] Dr. Neelima Bansal LIPID PROFILEon 08-17-2021 CHOL-HDL RATIO NORM SEE BELOW Normal [facility] Comment on above: Result Comment: 3.3 - 4.4 LOW RISK 4.4 - 7.1 AVERAGE RISK 7.1 - 11.0 MODERATE RISK >11.0 HIGH RISK Performed By: #### L IVER, LIPID, BMP, TSH #### [facility] [address] [place] [address] Dr. Neelima Bansal Cholesterol [Mass/Vol] 161 mg/dL Normal <=200 [facility] Comment on above: Performed By: #### L IVER, LIPID, BMP, TSH #### [facility] [address] [place] [address] Dr. Neelima Bansal Cholesterol in HDL [Mass/Vol] 29 mg/dL Critically low 40-60 [facility] Comment on above: Performed By: #### L IVER, LIPID, BMP, TSH #### [facility] [address] [place] [address] Dr. Neelima Bansal Cholesterol in LDL [Mass/Vol] 98.8 mg/dL Normal [facility] Comment on above: Performed By: #### L IVER, LIPID, BMP, TSH #### [facility] [address] [place] [address] Dr. Neelima Bansal Cholesterol.total/Ch olesterol in HDL [Mass ratio] 5.6 {ratio} Normal [facility] Comment on above: Performed By: #### L IVER, LIPID, BMP, TSH #### [facility] [address] [address] [address] Neelima Bansal HDL NORMAL > or = 60 mg/dl - LO W CARDIOVASCULAR RISK <40 mg/dl - HIGH CARDIOVASCULAR RISK Normal [facility] Comment on above: Performed By: #### L IVER, LIPID, BMP, TSH #### [facility] [address] [address] [address] Neelima Bansal LDL CALC NORMAL SEE BELOW Normal [facility] Comment on above: Result Comment: <100 mg/dl OPTIMAL 100 - 129 mg/dl NEAR OR ABOVE OPTIMAL 130 - 159 mg/dl BORDERLINE HIGH 160 - 189 mg/dl HIGH >190 mg/dl VERY HIGH Performed By: #### L IVER, LIPID, BMP, TSH #### [facility] [address] [address] [address] Neelima Bansal Triglyceride [Mass/Vol] 166 mg/dL Critically high <=150 [facility] Comment on above: Performed By: #### L IVER, LIPID, BMP, TSH #### [facility] [address] [address] [address] Neelima Bansal VLDL CALC 33.2 mg/dL Normal [facility] Comment on above: Performed By: #### L IVER, LIPID, BMP, TSH #### [facility] [address] [address] [address] Neelima Bansal LIVER PROFILEon 08-17-2021 Albumin [Mass/Vol] 3.7 g/dL Normal 3.4-5.0 [facility] Comment on above: Performed By: #### L IVER, LIPID, BMP, TSH #### [facility] [address] [address] [address] Neelima Bansal Albumin/Globulin [Mass ratio] 1.1 {ratio} Normal [facility] Comment on above: Performed By: #### L IVER, LIPID, BMP, TSH #### [facility] [address] [address] [address] Neelima Bansal ALP [Catalytic activity/Vol] 42 U/L Critically low 46-116 [facility] Comment on above: Performed By: #### L IVER, LIPID, BMP, TSH #### [facility] [address] [place] [address] Dr. Neelima Bansal ALT [Catalytic activity/Vol] 58 U/L Normal 16-63 [facility] Comment on above: Performed By: #### L IVER, LIPID, BMP, TSH #### [facility] [address] [address] [address] Neelima Bansal AST [Catalytic activity/Vol] 24 U/L Normal 15-37 [facility] Comment on above: Performed By: #### L IVER, LIPID, BMP, TSH #### [facility] [address] [place] [address] Dr. Neelima Bansal BILI, CONJUGATED 0.1 mg/dL Normal 0.0-0.[address] [facility] Comment on above: Performed By: #### L IVER, LIPID, BMP, TSH #### [facility] [address] [place] [address] Dr. Neelima Bansal Bilirubin [Mass/Vol] 0.4 mg/dL Normal 0.2-1.0 [facility] Comment on above: Performed By: #### L IVER, LIPID, BMP, TSH #### [facility] [address] [place] [address] Dr. Neelima Bansal Globulin (S) [Mass/Vol] 3.4 g/dL Normal [facility] Comment on above: Performed By: #### L IVER, LIPID, BMP, TSH #### [facility] [address] [place] [address] Dr. Neelima Bansal Protein [Mass/Vol] 7.1 g/dL Normal 6.4-8.2 [facility] Comment on above: Performed By: #### L IVER, LIPID, BMP, TSH #### [facility] [address] [place] [address] Dr. Neelima Bansal PROF CHEM 8 (BAS METB)on Anion gap [Moles/Vol] 10.8 mmol/L Normal [facility] Comment on above: Performed By: #### L IVER, LIPID, BMP, TSH #### [facility] [address] [place] [address] Dr. Neelima Bansal Calcium [Mass/Vol] 8.5 mg/dL Normal 8.5-10.1 [facility] Comment on above: Performed By: #### L IVER, LIPID, BMP, TSH #### [facility] [address] [place] [address] Dr. Neelima Bansal Chloride [Moles/Vol] 104 mmol/L Normal 98-107 [facility] Comment on above: Performed By: #### L IVER, LIPID, BMP, TSH #### [facility] [address] [place] [address] Dr. Neelima Bansal CO2 [Moles/Vol] 29.4 mmol/L Normal 21.0-32.[address] [facility] Comment on above: Performed By: #### L IVER, LIPID, BMP, TSH #### [facility] [address] [place] [address] Dr. Neelima Bansal Creatinine [Mass/Vol] 1.01 mg/dL Normal 0.70-1.30 [facility] Comment on above: Performed By: #### L IVER, LIPID, BMP, TSH #### [facility] [address] [place] [address] Dr. Neelima Bansal EGFR-AF JORDANIAN >60 Normal >=[address] [facility] Comment on above: Performed By: #### L IVER, LIPID, BMP, TSH #### [facility] [address] [place] [address] Dr. Neelima Bansal EGFR-NON AF JORDANIAN >60 Normal >=60 [facility] Comment on above: Performed By: #### L IVER, LIPID, BMP, TSH #### [facility] [address] [place] [address] Dr. Neelima Bansal Glucose [Mass/Vol] 136 mg/dL Critically high 74-106 [facility] Comment on above: Performed By: #### L IVER, LIPID, BMP, TSH #### [facility] [address] [place] [address] Dr. Neelima Bansal Potassium [Moles/Vol] 4.2 mmol/L Normal 3.5-5.1 [facility] Comment on above: Performed By: #### L IVER, LIPID, BMP, TSH #### [facility] [address] [place] [address] Dr. Neelima Bansal Sodium [Moles/Vol] 140 mmol/L Normal 136-145 [facility] Comment on above: Performed By: #### L IVER, LIPID, BMP, TSH #### [facility] [address] [place] [address] Dr. Neelima Bansal Urea nitrogen [Mass/Vol] 21.0 mg/dL Critically high 7.0-18.0 [facility] Comment on above: Performed By: #### L IVER, LIPID, BMP, TSH #### [facility] [address] [place] [address] Dr. Neelima Bansal Urea nitrogen/Creatinine [Mass ratio] 20.8 mg/mg Normal [facility] Comment on above: Performed By: #### L IVER, LIPID, BMP, TSH #### [facility] [address] [place] [address] Dr. Neelima Bansal TSHon 08-17-2021 TSH 2.401 uIU/mL Normal 0.358-3.740 [facility] Comment on above: Performed By: #### L IVER, LIPID, BMP, TSH #### [facility] [address] [place] [address] Dr. Neelima Bansal TSH RANGE SEE BELOW Normal [facility] Comment on above: Result Comment: <0.3 4 UIU/ml HYPERTHYROID 0.34-5.60 UIU/ml EUTHYROID >5.60 UIU/ml HYPOTHYROID Performed By: #### L IVER, LIPID, BMP, TSH #### [facility] [address] [place] [address] Dr. Neelima Bansal VITAMIN D 25 OHon 08-17-2021 VIT D 25-OH 54.0 ng/mL Normal [facility] Comment on above: Performed By: #### P SAS, VITAD #### [facility] [address] [place], [place] [address] Dr. Neelima Bansal VIT D RANGES SEE BELOW Normal [facility] Comment on above: Result Comment: <20 ng/mL Vit D deficient 20 - <30 ng/mL Vit D insufficient 30 - 100 ng/mL Vit D sufficient >100 ng/mL Potential Toxicity Performed By: #### P SAS, VITAD #### [facility] [id number] Neelima Bansal Cardiovascular Lab Reporton 06-22-2018 Cardiovascular Lab Report [facility] Patient Name: [facility] MR #: [id number] Department of Physician: Imtiaz Haq M.D. Division of Service Date: 06/21/2018 Cardiology Birthdate: 1960 Adult Cardiovascular Room #: [address] [address] Cardiovascular Laboratory Report PROCEDURES: Transesophageal echocardiogram and cardioversion. INDICATION: Atrial fibrillation. FELLOW: Dr. Sanchez. PROCEDURE IN DETAIL: An informed consent was obtained from the patient after explaining indication, risks, benefits, and alternatives. The patient understood and agreed and signed the consent form. The patient was brought to the laborer aquatic life and RYANN was performed under conscious sedation. [...] for the entire procedure. Date Dict: 06/21/2018/11:17 Colt/Krishna Sanchez MD Date Trans: 06/22/2018 03:57 A/mmo [id number] cc: Michael Spangler M.D. [address] [place] [address] [facility] Vital Signs Date Time Vital Sign Value Performing Clinician Facility 08-07-2024 15:00-0400 Body height 180.3 cm Michael Spangler MD Work Phone: [facility] 08-07-2024 15:00-0400 Body mass index (BMI) [Ratio] 34.73 kg/m2 Michael Spangler MD Work Phone: [facility] 08-07-2024 15:00-0400 Body temperature 97.5 [degF] Michael Spangler MD Work Phone: [facility] 08-07-2024 15:00-0400 Body weight 112.95 kg Michael Spangler MD Work Phone: [facility] 08-07-2024 15:00-0400 Diastolic blood pressure 58 mm[Hg] Michael Spangler MD Work Phone: [facility] 08-07-2024 15:00-0400 Heart rate 71 /min Michael Spangler MD Work Phone: [facility] 08-07-2024 15:00-0400 Respiratory rate 18 /min Michael Spangler MD Work Phone: [facility] 08-07-2024 15:00-0400 SaO2% (BldA) [Mass fraction] 95 % Michael Spangler MD Work Phone: [facility] 08-07-2024 15:00-0400 Systolic blood pressure 126 mm[Hg] Michael Spangler MD Work Phone: [facility] 02-13-2024 08:27-0500 Body height 180.3 cm Radha Bonilla DPM Work Phone: [facility] 02-13-2024 08:27-0500 Body mass index (BMI) [Ratio] 35.15 kg/m2 Radha Bonilla DPM Work Phone: [facility] 02-13-2024 08:27-0500 Body weight 114.31 kg Radha Bonilla DPM Work Phone: [facility] 02-08-2024 10:46-0500 Body height 180.3 cm Michael Spangler MD Work Phone: [facility] 02-08-2024 10:46-0500 Body mass index (BMI) [Ratio] 35.15 kg/m2 Michael Spangler MD Work Phone: [facility] 02-08-2024 10:46-0500 Body temperature 97.11 [degF] Michael Spangler MD Work Phone: [facility] 02-08-2024 10:46-0500 Body weight 114.31 kg Michael Spangler MD Work Phone: [facility] 02-08-2024 10:46-0500 Diastolic blood pressure 66 mm[Hg] Michael Spangler MD Work Phone: [facility] 02-08-2024 10:46-0500 Heart rate 74 /min Michael Spangler MD Work Phone: [facility] 02-08-2024 10:46-0500 Respiratory rate 18 /min Michael Spangler MD Work Phone: [facility] 02-08-2024 10:46-0500 SaO2% (BldA) [Mass fraction] 92 % Michael Spangler MD Work Phone: [facility] 02-08-2024 10:46-0500 Systolic blood pressure 130 mm[Hg] Michael Spangler MD Work Phone: [facility] 02-02-2024 15:15-0400 Body height 180.3 cm Radha Bonilla DPM Work Phone: [facility] 02-02-2024 15:15-0400 Body mass index (BMI) [Ratio] 34.87 kg/m2 Radha Bonilla DPM Work Phone: [facility] 02-02-2024 15:15-0400 Body weight 113.4 kg Radha Irene DPM Work Phone: [facility] 03-08-2023 10:47-0500 Body height 180.3 cm Jessica Winter MD Work Phone: [facility] 03-08-2023 10:47-0500 Body weight 110.68 kg Jessica Winter MD Work Phone: [facility] 03-08-2023 10:47-0500 Diastolic blood pressure 66 mm[Hg] Jessica Winter MD Work Phone: [facility] 03-08-2023 10:47-0500 Heart rate 70 /min Jessica Winter MD Work Phone: [facility] 03-08-2023 10:47-0500 Systolic blood pressure 136 mm[Hg] Jessica Winter MD Work Phone: [facility] 09-24-2021 15:23-0400 Body height 180.3 cm Jessica Winter MD Work Phone: [facility] 09-24-2021 15:23-0400 Body weight 113.4 kg Jessica Winter MD Work Phone: [facility] 09-24-2021 15:23-0400 Diastolic blood pressure 77 mm[Hg] Jessica Winter MD Work Phone: [facility] 09-24-2021 15:23-0400 Heart rate 60 /min Jessica Winter MD Work Phone: [facility] 09-24-2021 15:23-0400 Systolic blood pressure 143 mm[Hg] Jessica Winter MD Work Phone: [facility] 09-01-2021 14:02-0400 Blood Pressure Location Terrence CAPPS [facility] 09-01-2021 14:02-0400 Diastolic blood pressure 80 mm[Hg] Terrence HOBBSL [facility] [place] 09-01-2021 14:02-0400 Heart rate 68 /min Terrence HOBBSL [facility] [place] 09-01-2021 14:02-0400 Respiratory rate 16 /min Terrence HOBBSL [facility] [place] 09-01-2021 14:02-0400 Systolic blood pressure 132 mm[Hg] Terrence HOBBSL [facility] [place] 06-23-2021 10:36-0400 Body height 180.3 cm Jessica Winter MD Work Phone: [facility] 06-23-2021 10:36-0400 Body weight 115.67 kg Jessica Winter MD Work Phone: [facility] 06-23-2021 10:36-0400 Diastolic blood pressure 76 mm[Hg] Jessica Winter MD Work Phone: [facility] 06-23-2021 10:36-0400 Heart rate 56 /min Jessica Winter MD Work Phone: [facility] 06-23-2021 10:36-0400 Systolic blood pressure 128 mm[Hg] Jessica Winter MD Work Phone: [facility] Encounters Encounter Date Encounter Type Care Provider Facility Start: 08-07-2024 End: 08-07-2024 ambulatory MICHAEL SPANGLER Not Available Start: 08-07-2024 End: 08-07-2024 Office outpatient visit 25 minutes Michael Spangler MD Work Phone: [facility] Comment on above: Type 2 diabetes nolan itus with hyperglycemia, without long-term current use of insulin ([facility]) (Primary Dx); Essential hypertension, benign (CMS/HCC); AF (paroxysmal atrial fibrillation) (CMS/HCC); REAL on CPAP; Plantar fasciitis of right foot; Annual physical exam Start: 08-07-2024 End: 08-07-2024 Patient encounter procedure Michael Spangler MD Work Phone: [facility] Start: 08-07-2024 End: 08-07-2024 Bamboo flowsheet Michael Spangler MD Work Phone: [facility] Start: 08-07-2024 End: 08-07-2024 Bamboo flowsheet Michael Spangler MD Work Phone: [facility] Start: 05-30-2024 End: 05-30-2024 ambulatory [facility] Start: 05-21-2024 End: 05-21-2024 Telephone encounter Jessica Winter MD Work Phone: [facility] Comment on above: Patient Question Start: 02-13-2024 End: 02-13-2024 Bamboo flowsheet Radha Bonilla DPM Work Phone: [facility] Start: 02-13-2024 End: 02-13-2024 Bamboo flowsheet Radha Bonilla DPM Work Phone: [facility] Start: 02-13-2024 End: 02-13-2024 Clinisync Result Encounter Michael Spangler MD Work Phone: [facility] External Department Unsolicited Start: 02-13-2024 End: 02-13-2024 Postop follow up visit related to original px Radha Bonilla DPM Work Phone: [facility] Comment on above: Postoperative visit (Primary Dx); Dermatophytosis of nail Start: 02-13-2024 End: 02-13-2024 ambulatory RADHA BONILLA Not Available Start: 02-10-2024 End: 02-10-2024 Bamboo flowsheet Radha Bonilla DPM Work Phone: [facility] Start: 02-10-2024 End: 02-10-2024 Bamboo flowsheet Radha Bonilla DPM Work Phone: [facility] Start: 02-08-2024 End: 02-08-2024 Bamboo flowsheet Michael Spangler MD Work Phone: [facility] Start: 02-08-2024 End: 02-08-2024 Bamboo flowsheet Michael Spangler MD Work Phone: [facility] Start: 02-08-2024 End: 02-08-2024 ambulatory MICHAEL SPANGLER Not Available Start: 02-08-2024 End: 02-08-2024 Office outpatient visit 25 minutes Michael Spangler MD Work Phone: [facility] Comment on above: Type 2 diabetes nolan itus with hyperglycemia, without long-term current use of insulin (CMS/HCC) (Primary Dx); Essential hypertension, benign ([facility]); AF (paroxysmal atrial fibrillation) (CMS/[facility]); Gastroesophageal reflux disease without esophagitis Start: 02-02-2024 End: 02-02-2024 Patient encounter procedure Radha Bonilla DPM Work Phone: [facility] Comment on above: Dermatophytosis of n ail (Primary Dx); Dystrophic nail; Pain of left great toe; Difficulty walking Start: 02-02-2024 End: 02-02-2024 ambulatory RADHA BONILLA Not Available Start: 02-01-2024 End: 02-01-2024 Bamboo flowsheet Radha Bonilla DPM Work Phone: [facility] Start: 02-01-2024 End: 02-01-2024 Bamboo flowsheet Radha Bonilla DPM Work Phone: [facility] Start: 01-05-2024 End: 01-09-2024 Refill Jessica Winter MD Work Phone: [facility] Comment on above: Refill Request Start: 10-27-2023 End: 10-27-2023 ambulatory RADHA Gregory RUSHER Not Available Start: 09-22-2023 End: 09-22-2023 ambulatory RADHA A RUSHER Not Available Start: 09-08-2023 End: 09-08-2023 ambulatory RADHA Colt RUSHER Not Available Start: 08-22-2023 End: 08-22-2023 ambulatory RADHA Gregory RUSHER Not Available Start: 08-06-2023 Refill Pravin Link MD Work Phone: [facility] Comment on above: Refill Request Start: 05-20-2023 ambulatory Jessica Salazar i, MD Work Phone: [facility]iology Comment on above: eliquis Start: 03-08-2023 End: 03-08-2023 Patient encounter procedure Jessica Winter MD Work Phone: [facility] Comment on above: Persistent atrial fi brillation (HCC) (Primary Dx); Primary hypertension Start: 01-14-2023 Refill Jessica Salazar i, MD Work Phone: [facility] Start: 11-17-2022 ambulatory Terrence CAPPS [facility] : [facility] Start: 10-20-2022 End: 10-21-2022 ambulatory Terrence CAPPS Facility:[id number] Start: 09-22-2022 End: 09-23-2022 ambulatory Terrence CAPPS Facility: [place] Start: 03-11-2022 End: 03-11-2022 Nursing evaluation of patient and report [facility] Comment on above: IRB 20-651 MAP AF PI : Dr. Shannon Dozier (Primary Dx) Start: 03-11-2022 End: 03-11-2022 Patient entered into trial [facility] Start: 02-16-2022 End: 02-17-[address] MICHAEL SPANGLER Facility: Start: 01-08-2022 Refill Jessica Salazar i, MD Work Phone: [facility]iology Comment on above: Refill Request Start: 10-16-2021 End: 10-16-2021 Patient encounter procedure Terrence CAPPS General Surgery Nill/Said [place] Start: 10-12-2021 End: 11-03-2021 ambulatory SHAIKH Selwyn MERCEDES Facility:[facility] Start: 10-07-2021 End: 10-07-[address] TERRENCE CAPPS Facility:[facility] Start: 10-01-2021 End: 10-02-2021 ambulatory KLEINCLAUDINE MERCEDES Facility:[facility] Start: 09-30-2021 Orders Only Jessica Salazar i, MD Work Phone: [facility]iology Comment on above: Persistent atrial fi brillation (HCC) (Primary Dx); IRB 20-461 MAP AF PI: Dr. Shannon Dozier Start: 09-30-2021 Patient entered into trial Sarita Winter MD Work Phone: Cardiology Start: 09-24-2021 [...] Patient encounter procedure Terrence CAPPS General Surgery [place]/Lio Do Start: 08-27-2021 ambulatory Jessica Salazar i, MD Work Phone: Cardiology Comment on above: Any treatment adjust ment Start: 08-20-2021 Encounter for genera l adult medical examination without abnormal findings DR MICHAEL SPANGLER [facility] Start: 08-17-2021 End: 08-18-[address] MICHAEL SPANGLER Facility:[facility] Start: 08-17-2021 End: 08-18-2021 Encounter for general adult medical examination without abnormal findings DR MICHAEL SPANGLER Facility:[facility] Start: 07-03-2021 Telephone encounter Jessica Winter MD Work Phone: Cardiology Comment on above: Medication Problem ( Prior auth denial ) Start: 07-01-2021 Telephone encounter Jessica Winter MD Work Phone: [facility]iology Comment on above: Prior Auth from [employer] Start: 06-24-2021 Orders Only Jessica Salazar i, MD Work Phone: [facility]iology Comment on above: Persistent atrial fi brillation (HCC) (Primary Dx); IRB 20-280 MAP AF PI: Dr. Shannon Dozier Start: 06-24-2021 Patient entered into trial Sarita Winter MD Work Phone: Cardiology Start: 06-23-2021 [...] 03-18-2021 Patient entered into trial [facility] Start: 06-21-2018 End: 06-22-2018 Patient encounter procedure PROVIDER UNKNOWN Facility:[facility] Procedures Date Procedure Procedure Detail Performing Clinician Start: 02-13-2024 MLR HEMOGLOBIN A1C Michael Spangler MD Work Phone: Start: 10-20-2022 Colonoscopy Radha merida DPM Work Phone: Start: 10-07-2021 Sigmoidoscopy Terrence Nathalie RANDLE Start: 08-17-2021 PSA screening SHAIKH SHAHZAD BURNS Comment on above: Performed By: #### P SASC, VITAD #### [facility] [address] [address] [address] Neelima Bansal Start: 09-02-2020 Colonoscopy Terrence NI LL Cardioversion Terrence NILL Catheter ablation of tissue of heart Terrence NILL Tonsillectomy Terrence NILL Plan of Treatment Date Care Activity Detail Author Start: 2036 RSV Vaccine (1 - 1-d ose 75+ series) RSV Vaccine (1 - 1-dose 75+ series) [facility] Start: 10-20-2032 Screening for malign ant neoplasm of colon [facility] Start: 08-17-2026 PROSTATE CANCER SCRE ENING DISCUSSION PROSTATE CANCER SCREENING DISCUSSION [facility] Start: 08-17-2026 Prostate specific an tigen measurement Prostate Cancer Screening Discussion [facility] Start: 02-08-2025 End: 02-08-2025 Patient encounter procedure 02/08/2025 9:00 AM EST Office Visit [facility] [address] [place] [id number] Michael Spangler MD [address] [place] [phone] [facility] Start: 12-03-2024 Influenza vaccination Influenz a Vaccine (Season Ended) [facility] Start: 08-26-2024 Urine screening for protein Diabetes: Urine Protein Screening [facility] Start: 08-12-2024 Hemoglobin A1c measurement Mariana betes: Hemoglobin A1C [facility] Start: 08-07-2024 End: 08-07-2024 Patient encounter procedure 08/07/2024 2:45 PM EDT Office Visit [facility] [address] [place] [address] Michael Spangler MD [address] [place] [address] [facility] Start: 08-07-2024 End: 08-07-2025 Basic metabolic 1998 panel - Serum or Plasma Basic metabolic panel Lab Routine Annual physical exam Expected: 08/07/2024 (Approximate), Expires: 08/07/2025 [facility] Comment on above: Expected: 08/07/2024 (Approximate), Expires: 08/07/2025 Start: 08-07-2024 End: 08-07-2025 CBC W Auto Differential panel - Blood CBC and differential Lab Routine Annual physical exam Expected: 08/07/2024 (Approximate), Expires: 08/07/2025 [facility] Comment on above: Expected: 08/07/2024 (Approximate), Expires: 08/07/2025 Start: 08-07-2024 End: 08-07-2025 Hemoglobin A1c/Hemoglobin.total in Blood Hemoglobin A1c Lab Routine Annual physical exam Expected: 08/07/2024 (Approximate), Expires: 08/07/2025 [facility] Comment on above: Expected: 08/07/2024 (Approximate), Expires: 08/07/2025 Start: 08-07-2024 End: 08-07-2025 Hepatic function 2000 panel - Serum or Plasma Hepatic function panel Lab Routine Annual physical exam Expected: 08/07/2024 (Approximate), Expires: 08/07/2025 [facility] Comment on above: Expected: 08/07/2024 (Approximate), Expires: 08/07/2025 Start: 08-07-2024 End: 08-07-2025 Lipid 1996 panel - Serum or Plasma Lipid panel Lab Routine Annual physical exam Expected: 08/07/2024 (Approximate), Expires: 08/07/2025 [facility] Comment on above: Expected: 08/07/2024 (Approximate), Expires: 08/07/2025 Start: 08-07-2024 End: 08-07-2025 Microalbumin/Creatinine panel in random Urine Microalbumin / creatinine, urine ratio Lab Routine Type 2 diabetes mellitus with hyperglycemia, without long-term current use of insulin ([facility]) Expected: 08/07/2024 (Approximate), Expires: 08/07/2025 [facility] Work Phone: Comment on above: Expected: 08/07/2024 (Approximate), Expires: 08/07/2025 Start: 08-07-2024 End: 08-07-2025 Prostate specific Ag [Mass/volume] in Serum or Plasma PSA Lab Routine Annual physical exam Expected: 08/07/2024 (Approximate), Expires: 08/07/2025 [facility] Comment on above: Expected: 08/07/2024 (Approximate), Expires: 08/07/2025 Start: 08-07-2024 End: 08-07-2025 Thyrotropin [Units/volume] in Serum or Plasma TSH Lab Routine Annual physical exam Expected: 08/07/2024 (Approximate), Expires: 08/07/2025 [facility] Comment on above: Expected: 08/07/2024 (Approximate), Expires: 08/07/2025 Start: 03-18-2024 DIABETES SCREEN DIABETES SCREEN [facility] Start: 03-18-2024 [facility] Start: 02-27-2024 Hemoglobin A1c measurement Mariana betes: Hemoglobin A1C [facility] Start: 02-13-2024 End: 02-13-[address] [facility] Comment on above: Arrived Start: 02-08-2024 End: 02-07-2025 Hemoglobin A1c/Hemoglobin.total in Blood Hemoglobin A1c Lab Routine Type 2 diabetes mellitus with hyperglycemia, without long-term current use of insulin ([facility]) Expected: 02/08/2024 (Approximate), Expires: 02/07/2025 [facility] Work Phone: Comment on above: Expected: 02/08/2024 (Approximate), Expires: 02/07/2025 Start: 02-08-2024 End: 02-08-2024 Patient encounter procedure 02/08/2024 10:30 AM EST Office Visit [facility] [address] [place] [phone] Michael Spangler MD [address] [place] [address] [facility] Start: 02-02-2024 End: 02-02-2024 Patient encounter procedure 02/02/2024 3:30 PM EDT Office Visit [facility] [address] [place] [phone] Radha Bonilla, DPM [address] [place], [place] [phone] [facility] Start: 12-04-2023 Covid-19 Vaccine ( season) Covid-19 Vaccine () [facility] Start: 12-04-2023 Influenza vaccination C [facility] Start: 08-20-2023 Screening for malign ant neoplasm of colon [facility] Start: 04-04-2023 Behavioral Health Screening Behavioral Health Screening [facility] Start: 04-04-2023 Depression Assessment Depression Ass essment [facility] Start: 03-11-2023 BP Controlled (<130/80) BP Controlle d (<130/80) [facility] Start: 12-03-2022 Covid-19 Vaccine ( season) Covid-19 Vaccine ( season) [facility] Start: 12-03-2022 Covid-19 Vaccine ( season) Covid-19 Vaccine ( season) [facility] Start: 12-03-2022 Influenza vaccination Influenza Vacc ine (#1) [facility] Start: 04-04-2022 Depression Assessment Depression Ass essment [facility] Start: 12-03-2021 Influenza vaccination C [facility] Start: 11-19-2021 COVID-19 VACCINE (4 - Booster for Pfizer series) COVID-19 VACCINE (4 - Booster for Pfizer series) [facility] Start: 09-14-2021 COVID-19 VACCINE (4 - Booster for Pfizer series) COVID-19 VACCINE (4 - Booster for Pfizer series) [facility] Start: 2021 RSV Vaccine (1 - 1-d ose 60+ series) RSV Vaccine (1 - 1-dose 60+ series) [facility] Start: 04-04-2021 DEPRESSION ASSESSMENT DEPRESSION ASS ESSMENT [facility] Start: 12-09-2020 COVID-19 VACCINE (3 - Booster for Pfizer series) COVID-19 VACCINE (3 - Booster for Pfizer series) [facility] Start: 12-03-2020 Influenza vaccination INFLUENZA (#1) [facility] Start: 07-06-2020 Urine microalbumin profile [facility] Start: 2016 PROSTATE CANCER SCRE ENING DISCUSSION PROSTATE CANCER SCREENING DISCUSSION [facility] Start: 09-07-2011 Pneumococcal Vaccine : 50+ (1 of 1 - PCV) Pneumococcal Vaccine: 50+ (1 of 1 - PCV) [facility] Start: 09-07-2011 SHINGRIX VACCINE (1 of 2) ROBLES GRIX VACCINE (1 of 2) [facility] Start: 2006 COLOGUARD (FIT-DNA) COLOGUARD (FIT-D NA) [facility] Start: 2006 Colonoscopy COLONOSCOPY [facility] Start: 2006 COLORECTAL CANCER SCREENING COLORECTAL CANCER SCREENING [facility] Start: [address] COLONOGRAPHY [facility] Start: 2006 FECAL OCCULT BLOOD FECAL OCCULT BLOO D [facility] Start: 2006 Screening for malign ant neoplasm of colon [facility] Start: 2006 SIGMOIDOSCOPY SIGMOIDOSCOPY [facility] Start: 1996 Lipid 1996 panel - S tomas or Plasma Lipid Screening [facility] Start: 1996 Lipid panel Lipid Screening [facility] Start: 1996 LIPID SCREEN LIPID SCREEN [facility] Start: 1980 Urine screening for protein Diabetes: Urine Protein Screening [facility] Start: 09-07-1979 Annual PCP Team Anodic Treater elijah Disease Visit Annual PCP Team Chronic Disease Visit [facility] Start: 09-07-1979 Anxiety Screening Anxiety Screening [facility] Start: 09-07-1979 BP Controlled (<130/80) BP Controlle d (<130/80) [facility] Start: 09-07-1979 Depression Screening Depression Scre ening [facility] Start: 09-07-1979 HEPATITIS C SCREENING HEPATITIS C [facility] Start: 09-07-1979 Hepatitis C screening Hepatitis C [facility] Start: 09-07-1979 HIV SCREENING HIV SCREENING [facility] Start: 09-07-1979 HIV screening HIV Screening [facility] Start: 1973 Adult depression scr eening assessment DEPRESSION SCREENING [facility] Start: 09-07-1971 Glaucoma screening Diabetes: R etinopathy Screening [facility] Start: 1961 Hemoglobin A1c measurement Mariana betes: Hemoglobin A1C [facility] Start: 1961 Screening for malign ant neoplasm of colon [facility] End: 06-24-2022 ECG COMPLETE ECG COMPLETE ECG Routine Persistent atrial fibrillation (HCC) IRB 20-07 MAP AF PI: Dr. Shannon Dozier 1 Occurrences starting 06/24/2021 until 06/24/2022 [facility] Work Phone: Comment on above: 1 Occurrences starti ng 06/24/2021 until 06/24/2022 End: 09-30-2022 ECG COMPLETE ECG COMPLETE ECG Routine Persistent atrial fibrillation (HCC) IRB 20-757 MAP AF PI: Dr. Shannon Dozier 1 Occurrences starting 09/30/2021 until 09/30/2022 [facility] Work Phone: Comment on above: 1 Occurrences starti ng 09/30/2021 until 09/30/2022 Echocardiography ECHO Cardiology Routine Atrial fibrillation, persistent (HCC) Ordered: 06/23/2021 [facility] Work Phone: Comment on above: Ordered: 06/23/2021 OUTSIDE VENDOR CARDI AC OUTPATIENT EXTENDED RHYTHM RECORDING (WITHOUT TELEMETRY) OUTSIDE VENDOR CARDIAC OUTPATIENT EXTENDED RHYTHM RECORDING (WITHOUT TELEMETRY) Holter Routine Persistent atrial fibrillation (HCC) IRB 20-726 MAP AF PI: Dr. Shannon Dozier Ordered: 06/24/2021 [facility] Work Phone: Comment on above: Ordered: 06/24/2021 OUTSIDE VENDOR CARDI AC OUTPATIENT EXTENDED RHYTHM RECORDING (WITHOUT TELEMETRY) OUTSIDE VENDOR CARDIAC OUTPATIENT EXTENDED RHYTHM RECORDING (WITHOUT TELEMETRY) Holter Routine Persistent atrial fibrillation (HCC) IRB 20-805 MAP AF PI: Dr. Shannon Dozier Ordered: 09/30/2021 [facility] Work Phone: Comment on above: Ordered: 09/30/2021 [facility] Immunizations Immunization Date Immunization Notes Care Provider Shahzad gastelum 07-20-2021 Pfizer Cook Cap SARS-CoV-2 Vaccination Radha Bonilla DPM Work Phone: [facility] 07-09-2020 Pfizer Purple Cap SARS-CoV-2 Vaccination Radha Bonilla DPM Work Phone: [facility] 07-03-2020 SARS-CoV-2 (COVID-19 ) mRNA BNT-162b2 vax [facility] [place] 06-18-2020 Pfizer Purple Cap SARS-CoV-2 Vaccination Radha Bonilla DPM Work Phone: [facility] 06-11-2020 SARS-CoV-2 (COVID-19 ) mRNA BNT-162b2 vax Terrence NILL [facility] [place] 07-06-2010 tetanus toxoid, redu rodrigo diphtheria toxoid, and acellular pertussis vaccine, adsorbed [facility] Main [facility] Payers Date Payer Category Payer Unknown [id number] 2022 Blue Cross Blue Shield [id number] 2022 Unknown [id number] 2018 Unknown MMO MMO [employer] [id number] 2018-Present [phone] [address] [place] [address] PPO [id number] 2018 Unknown [id number] 1961 Unknown [id number] 2.16.840.1.489663.3.579.2 .647 1961 Unknown [id number] 2.16.840.1.048986.3.579.2 .593 1961 Unknown [id number] 2.16.840.1.124198.3.579.2 .593 1961 Unknown [id number] 2.16.840.1.331727.3.579.2 .593 1961 Unknown [id number] 2.16.840.1.395477.3.579.2 .593 1961 Unknown [id number] 2.16.840.1.086850.3.579.2 .593 1961 Unknown [id number] 2.16.840.1.775705.3.579.2 .593 1961 Unknown [id number] 2.16.840.1.367166.3.579.2 .593 1961 Unknown [id number] 2.16.840.1.843079.3.579.2 .727 1961 Unknown [id number] 2.16.840.1.092044.3.579.2 .727 1961 Unknown [id number] 2.16.840.1.876576.3.579.2 .727 1961 Unknown [id number] 2.16.840.1.365263.3.579.2 .1259 1961 Unknown [id number] 2.16.840.1.018503.3.579.2 .1259 1961 Unknown [id number] 2.16.840.1.450717.3.579.2 .1259 1961 Unknown [id number] 2.16.840.1.670281.3.579.2 .1259 1961 Unknown [id number] 2.16.840.1.814256.3.579.2 .1259 1961 Unknown [id number] 2.16.840.1.469916.3.579.2 .1259 1961 Unknown [id number] 2.16.840.1.483198.3.579.2 .1259 1961 Unknown [id number] 2.16.840.1.819421.3.579.2 .1259 1959 Unknown [id number] Social History Date Type Detail Facility Start: 07-18-2018 End: 09-22-2023 Tobacco smoking status NHIS Ex-smoker [facility] End: 04-04-2017 History of tobacco use Current smoker [facility] End: 04-04-2017 History of tobacco use Cigarette Smoker [facility] Start: 07-18-2018 End: 09-22-2023 Tobacco use and exposure Smokeless tobacco non-user [facility] Start: 06-23-2021 End: 03-08-2023 Alcohol intake Current drinker of alcohol (finding) [facility] Start: 07-18-2018 History SDOH Alcohol Comment rarely [facility] Start: 1960 Sex Assigned At Male [facility] Start: 06-13-2021 End: 09-24-2021 Exposure to SARS-CoV-2 (event) Not sure [facility] Tobacco smoking status Never [facility] [place] Start: 03-11-2022 End: 08-03-2023 Sex Assigned At Male [facility] [place] Start: 09-20-2021 End: 09-30-2021 Exposure to SARS-CoV-2 (event) Unable to assess [facility] Work Phone: Start: 03-11-2022 End: 08-03-2023 History of Social function [facility] Start: 04-07-2021 Gender identity Identifies as male gender (finding) [facility] Start: 04-07-2021 Sexual orientation Heterosexual (finding) [facility] Start: 10-27-2023 End: 08-07-2024 Alcoholic beverage intake Ex-drinker (finding) [facility] Start: 08-22-2023 Alcohol Comment rare [facility] Start: 1960 Sex assigned at Not on file [facility] Medical Equipment Procedure Code Equipment Code Equipment Origin al Text Equipment Identifier Dates 1 each by In Vit ro route Daily [id number] Start: 08-07-2024 1 each Daily [id number] Start: 08-07-2024 Goals Date Patient Goal Desired Activity /State Personal health goal Functional Status Date Assessment Result Facility 03-19-2021 Are you deaf, or do you have serious difficulty hearing No 03/19/2021 5:23 PM [place] Salvador, RONALD No [facility] 03-19-2021 Are you blind, or do you have serious difficulty seeing, even when wearing glasses No 03/19/2021 5:23 PM [place] Salvador, RONALD No [facility] 03-19-2021 Do you have serious difficulty walking or climbing stairs No 03/19/2021 5:23 PM [place] Salvador, RONALD No [facility] 03-19-2021 Do you have difficul ty dressing or bathing No 03/19/2021 5:23 PM [place] Salvador, RONALD No [facility] 03-19-2021 Because of a physica l, mental, or emotional condition, do you have difficulty doing errands alone such as visiting a physician's office or shopping No 03/19/2021 5:23 PM [place] Salvador, RONALD No [facility] Mental Status Date Assessment Result Facility 03-19-2021 Because of a physica l, mental, or emotional condition, do you have serious difficulty concentrating, remembering, or making decisions No 03/19/2021 5:23 PM [place] Salvador, RONALD No [facility] Clinical Notes 06-23-2021 to 08-07-2024 Michael Spangler MD - 08/07/2024 3:39 PM Brayan Spangler MD - 08/07/2024 3:38 PM Brayan Spangler MD - 08/07/2024 3:38 PM Brayan Spangler MD - 08/07/2024 3:38 PM EDTPatient Instructions Note Date & Type Note Facility 08-07-2024 History of Present illness Narrative Associated Problem(s): Type 2 diabetes mellitus with hyperglycemia, without long-term current use of insulin ([facility]) Not checking BS and due for A1C. Stick to ADA diet and limit carbs. Associated Problem(s): REAL on CPAP Sleeping well with CPAP and use nightly. The patient is benefiting from PAP therapy. Associated Problem(s): Essential hypertension, benign (CMS/HCC) BP controlled and monitor PRN. Associated Problem(s): AF (paroxysmal atrial fibrillation) (CMS/HCC) In NSR and continue medication. Follow up with cardiology. Associated Problem(s): Plantar fasciitis of right foot History and exam suggestive plantar fasciitis. Start prednisone x 5 days for inflammation and pain. Handout with stretches to patient and ice at end of day. Discussed importance of proper supportive shoes. If continue to have problems will need PT and x-ray. May need podiatry for injections. Continue meds as prescribed. If develop new or worsening symptoms contact office. Images from the original note were not included. Subjective Patient ID: Abbey Robert is a 63 y.o. male who presents for Follow-up (6m f/up/Leg cramping), Foot Injury (Right foot pain, hard to walk), and Knee Pain (Bilateral knee pain). Follow up DM, HTN, afib, and REAL. Not checking BS away from office. Tries to eat well and stick to ADA diet. Denies signs of elevated BS such as polyuria, polyphagia or polydipsia. Taking ozempic and tolerating. Checking BP PRN and typically controlled. BP normal today. Taking medication daily and tolerating without side effects. Afib stable. No palpitations or heart racing. Not lightheaded or dizzy. REAL controlled with CPAP. Using machine nightly for entire time asleep, typically 6-8 hours. Sleeping well and not waking up as much during night. Rested in am and not as tired during day. C/o pain in bottom of right foot for several weeks. Pain across arch. Pain with walking and standing and severe after work. Changes shoes but no change. Pain into heel. No change in activity or walking. Not tried OTC. Foot Injury Knee Pain Review of Systems Constitutional: Negative for fatigue. Respiratory: Negative for cough, shortness of breath and wheezing. Cardiovascular: Negative for chest pain and palpitations. Gastrointestinal: Negative for abdominal pain, diarrhea, nausea and vomiting. Genitourinary: Negative for dysuria. Objective Physical Exam Constitutional: General: He is not in acute distress. Appearance: Normal appearance. HENT: Head: Normocephalic. Right Ear: Tympanic membrane and ear canal normal. Left Ear: Tympanic membrane and ear canal normal. Eyes: Extraocular Movements: Extraocular movements intact. Pupils: Pupils are equal, round, and reactive to light. Cardiovascular: Rate and Rhythm: Normal rate and regular rhythm. Heart sounds: No murmur heard. No friction rub. No gallop. Pulmonary: Breath sounds: Normal breath sounds. No wheezing, rhonchi or rales. Abdominal: General: Bowel sounds are normal. There is no distension. Palpations: Abdomen is soft. Tenderness: There is no abdominal tenderness. There is no guarding or rebound. Musculoskeletal: Left lower leg: No edema. Neurological: Mental Status: He is alert. Assessment/Plan Problem List Items Addressed This Visit AF (paroxysmal atrial fibrillation) (CMS/HCC) In NSR and continue medication. Follow up with cardiology. Essential hypertension, benign (CMS/HCC) BP controlled and monitor PRN. REAL on CPAP Sleeping well with CPAP and use nightly. The patient is benefiting from PAP therapy. Type 2 diabetes mellitus with hyperglycemia, without long-term current use of insulin (CMS/HCC) - Primary Not checking BS and due for A1C. Stick to ADA diet and limit carbs. Relevant Medications semaglutide (Ozempic, 1 MG/DOSE,) 4 MG/3ML solution pen-injector Blood Glucose Monitoring Suppl (Blood Glucose Monitor System) w/Device kit Glucose Blood (Blood Glucose Test) strip Lancets Micro Thin 33G misc Other Relevant Orders Microalbumin / creatinine, urine ratio Plantar fasciitis of right foot History and exam suggestive plantar fasciitis. Start prednisone x 5 days for inflammation and pain. Handout with stretches to patient and ice at end of day. Discussed importance of proper supportive shoes. If continue to have problems will need PT and x-ray. May need podiatry for injections. Continue meds as prescribed. If develop new or worsening symptoms contact office. 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 Case History: Dr. Cintron and Jb Bone, CBX OPERATOR-C referred this patient for consultation as regards [...] History of Present Illness: The patient is doing really good with his sleep and CPAP therapy. He is getting a decent quality sleep with CPAP therapy. His has no complaints. No reports of nocturnal leg movements or restless legs symptoms, including an urge to move his legs. Patient's Sleep Schedule: Usual bedtime: 9-11 p.m. Sleep routine and medications around bedtime: The patient relaxes in his couch and unwinds. He takes Eliquis, metformin, lisinopril, and metoprolol. Sleep latency: Not long Usual wake time: 5:30-6 AM the patient uses alarm clock to wake up. He feels pretty good upon awakening. He denies morning headaches or dry cough. The patient is not tired until the end of the day. He is able to focus and concentrate. He does not fall asleep at work, while driving, during conversations, or at inappropriate places. He takes a nap on the weekends sometimes. He does not drink caffeine. He does not take any stimulant medications. [place] Sleepiness Scale: Current total score: 05/28, Previous total score: 07/26, and Baseline total score: 05/28 Quality of Life: Functional Outcomes of Sleep Questionnaire Some people have difficulty performing everyday activities when they feel tired or sleepy. The purpose of this questionnaire is to find out if you generally have difficulty carrying out certain activities because you are too sleepy or tired. In this questionnaire, when the words ???sleepy??? or ???tired??? are used, it means the feeling that you can't keep your eyes open, your head is droopy, that you want to ???nod off???, or that you feel the urge to take a nap. These words do not refer to the tired or fatigued feeling you may have after you have exercised. 1) Do you have difficulty concentrating on the things you do because you are sleepy or tired? 4. No difficulties 2) Do you generally have difficulty remembering things, because you are sleepy or tired? 4. No difficulties 3) Do you have difficulty operating a motor vehicle for SHORT distances (less than 100 miles0 because you become sleepy or tired? 4. No difficulties 4) Do you have difficulty operating a motor vehicle for LONG distances (greater than 100 miles) because you become sleepy or tired? 4. No difficulties 5) Do you have difficulty visiting with your family or friends in THEIR homes because you are sleepy or tired? 4. No difficulties 6) Has your relationship with your family, friends, or work colleagues been affected because you are sleepy or tired? 4. No 7) Do you have difficulty watching a movie or videotape because you become sleepy or tired? 4. No difficulties 8) Do you have difficulty being as active as you want to be in the EVENING because you are too sleepy or tired? 4. No difficulties 9) Do you have difficulty being as active as you want to be in the MORNING because you are too sleepy or tired? 4. No difficulties 10) Has your desire for intimacy or sex been affected because you are sleepy or tired? 4. No TOTAL 40 FOSQ-10??? 2004, Susu Casillas FOSQ-10 - [facility] [id number] [facility].docx PAP Data Downloaded from Patient's PAP Device (if applicable): Settings: Mode: CPAP Mode Settings: CPAP=11 cm H2O and EPR/C-Flex/Bi-Flex=Off Compliance data: 90 total days use in the last 90 days, Over the last 14 days, average daily usage was 7 hrs 39 min 0 sec, and % Days with Usage >= 4 Hours: 100 Leak data: Median (L/min): 0.0 and 95th percentile: (L/min): 1.5 Therapy data: AHI (events/hour): 0.5, Apnea Index: 0.2, Hypopnea Index: 0.3, Obstructive Apnea Index: 0.1, Central (Clear Airway) Apnea Index: 0.1, Unknown Apnea Index: 0.0, RERA Index: 0.0, and % of Night in Periodic Breathing or Otf-Strokes Respiration: 0 Review of Systems Respiratory: Negative for cough, shortness of breath and wheezing. Cardiovascular: Negative for chest pain and palpitat (more content not included)... [facility] 05-21-2024 Telephone encounter Note Returned call to patient's , inquired if patient has has prior issues with swelling during prolonged travel. She reports they have not flown in years so she is unsure. Informed her that if there is a concern regarding LE swelling after sitting for prolonged periods, compression socks could be helpful. She verbalized understanding, denies any additional questions or concerns at this time. Haroon Barber RN [facility] 05-21-2024 Miscellaneous Notes Returned call to patient's , inquired if patient has has prior issues with swelling during prolonged travel. She reports they have not flown in years so she is unsure. Informed her that if there is a concern regarding LE swelling after sitting for prolonged periods, compression socks could be helpful. She verbalized understanding, denies any additional questions or concerns at this time. Haroon Barber RN May 21, 2024 Patient Contact Number: [phone] (home) [phone] (cell) Patient last seen within the last year No Reason For Call: Other Issue: Patients is calling. They will be traveling to [place] and was wondering if making such a long travel that Mr. Robert should wear compression socks. Please call to advise. Tiffanie Sutton documented in this encounter [facility] 05-21-2024 Telephone encounter Note May 21, 2024 Patient Contact Number: [phone] (home) [phone] (cell) Patient last seen within the last year No Reason For Call: Other Issue: Patients is calling. They will be traveling to [place] and was wondering if making such a long travel that Mr. Robert should wear compression socks. Please call to advise. Tiffanie Sutton [facility] 02-13-2024 History of Present illness Narrative Images from the original note were not included. Subjective Patient ID: Abbey Robert is a 63 y.o. male who presents for No chief complaint on file.. HPI Outpatient procedure: Total matricectomy/phenol technique left great toe. Date of procedure: 02/02/2024. Reports mild post-procedure discomfort; well-controlled with Tylenol as needed and gradually subsiding. Reports mild-moderate drainage; less than that experienced with the right great toe; gradually subsiding. Denies streaking or constitutional symptoms. Risk factors: Type II diabetes. Eliquis therapy. Mobility and flexibility restraints. Toenail deformity. Digital and/or shoe trauma and related complications. Medications Current Outpatient Medications: apixaban (Eliquis) 5 MG tablet, Take 1 tablet by mouth in the morning and 1 tablet before bedtime., Disp: , Rfl: atorvastatin (Lipitor) 40 MG tablet, TAKE 1 TABLET BY MOUTH AT BEDTIME, Disp: 90 tablet, Rfl: 1 cholecalciferol (Vitamin D-3) 50 MCG (1999 UT) tablet, TAKE 1 TABLET BY MOUTH EVERY DAY, Disp: 30 tablet, Rfl: 5 lisinopril 20 MG tablet, TAKE 1 TABLET BY MOUTH TWICE A DAY, Disp: 180 tablet, Rfl: 3 metFORMIN XR (Glucophage-XR) 500 MG 24 hr tablet, TAKE 1 TABLET BY MOUTH TWICE A DAY, Disp: 180 tablet, Rfl: 3 metoprolol succinate XL (Toprol-XL) 25 MG 24 hr tablet, Take 1 tablet by mouth Daily, Disp: , Rfl: semaglutide (Ozempic, 0.25 or 0.5 MG/DOSE,) 2 MG/1.5ML solution pen-injector, Inject 0.5 mg under the skin 1 (one) time per week, Disp: 4 each, Rfl: 5 Allergies Penicillins Past Surgical History Past Surgical History: Procedure Laterality Date CARDIOVERSION ENDOMETRIAL ABLATION TONSILLECTOMY Family History Family History Problem Relation Name Age of Onset Heart disease Mother Rayne Hypertension Mother Rayne Diabetes Father Savage Hypertension Father Savage Heart disease Father Savage Cancer Brother Pepito Lung Cancer Paternal Grandfather Abbey Peterson Objective General assessment: Alert and oriented. Pleasant disposition. Accompanied by his spouse, Louisa. Vascular: DP 2/4 bilateral. PT 1/4 bilateral. CFT brisk all digits. Gradient temperature: Warm-warm bilateral. Unremarkable for ankle edema. Neurologic: Tactile and light touch sensation intact. Dermatologic: Skin turgor is good. Web space areas are clean, dry, non-inflamed. Unremarkable for eczema or dermatitis. Right great toe: Satisfactory total matricectomy. Left great toe: The paronychial margins are mildly inflamed (blanchable); with a small amount of serous drainage. Unremarkable for pustular drainage, abscess formation or clinical evidence of infection. CFT brisk. All remaining digits: Toenails are clear and non-dystrophic. No signs of ulceration. Orthopedic: Range of motion: Demonstrates functional ankle, subtalar and 1st MTP joint range of motion Lesion pattern: No forefoot or digital discrete keratotic lesions are noted. Radiology: Assessment/Plan POD #11: Total matricectomy/phenol technique left great toe (02/02/2024). Healing well without apparent complication. Satisfactory outcome total matricectomy/phenol technique right great toe (09/08/2023). Type II diabetes. Plan: Review of clinical findings, post-procedure course to date and instructions. Left great toe: Site cleansing. Gentian nhung applied. Continue daily care measures: Cleansing followed by Betadine solution; until drainage and localized erythema effectively subside. Ibuprofen and/or Tylenol as needed for comfort. Procedure: This note was created with the assistance of a speech recognition program. While intending to generate a timely document that accurately reflects the content of the visit, no guarantee can be provided that every grammatical or spelling mistake has been or will be identified or corrected. Thank you for your understanding. Radha Bonilla DPM documented in this encounter [facility] 02-13-2024 Instructions Radha Bonilla DPM - 02/13/2024 8:30 AM EST As noted documented in this encounter [facility] 02-08-2024 History of Present illness Narrative Associated Problem(s): Type 2 diabetes mellitus with hyperglycemia, without long-term current use of insulin ([facility]) Not checking BS and due for A1C. Stick to ADA diet and limit carbs. Associated Problem(s): Gastroesophageal reflux disease without esophagitis Occasional symptoms and use OTC PRN. Associated Problem(s): Essential hypertension, benign (CMS/HCC) BP controlled and monitor PRN. Associated Problem(s): AF (paroxysmal atrial fibrillation) (CMS/HCC) In NSR and continue medication. Follow up with cardiology. Images from the original note were not included. Subjective Patient ID: Abbey Robert is a 63 y.o. male who presents for Follow-up (6m ). Follow up DM, HTN, afib, GERD, and REAL. Patient feels well today. Not checking BS away from office. Tries to eat well and stick to ADA diet. Denies signs of elevated BS such as polyuria, polyphagia or polydipsia. Taking ozempic and tolerating lower dose. Checking BP PRN and typically controlled. BP normal today. Taking medication daily and tolerating without side effects. Afib stable. No palpitations or heart racing. Not lightheaded or dizzy. GERD controlled with OTC. Denies epigastric pain or burning and not waking up with symptoms. REAL controlled with CPAP. Using machine nightly for entire time asleep, typically 6-8 hours. Sleeping well and not waking up as much during night. Rested in am and not as tired during day. Review of Systems Constitutional: Negative for fatigue. Respiratory: Negative for cough, shortness of breath and wheezing. Cardiovascular: Negative for chest pain and palpitations. Gastrointestinal: Negative for abdominal pain, diarrhea, nausea and vomiting. Genitourinary: Negative for dysuria. Objective Physical Exam Constitutional: General: He is not in acute distress. Appearance: Normal appearance. HENT: Head: Normocephalic. Right Ear: Tympanic membrane and ear canal normal. Left Ear: Tympanic membrane and ear canal normal. Eyes: Extraocular Movements: Extraocular movements intact. Pupils: Pupils are equal, round, and reactive to light. Cardiovascular: Rate and Rhythm: Normal rate and regular rhythm. Heart sounds: No murmur heard. No friction rub. No gallop. Pulmonary: Breath sounds: Normal breath sounds. No wheezing, rhonchi or rales. Abdominal: General: Bowel sounds are normal. There is no distension. Palpations: Abdomen is soft. Tenderness: There is no abdominal tenderness. There is no guarding or rebound. Musculoskeletal: Left lower leg: No edema. Neurological: Mental Status: He is alert. Assessment/Plan Problem List Items Addressed This Visit AF (paroxysmal atrial fibrillation) (CMS/HCC) In NSR and continue medication. Follow up with cardiology. Essential hypertension, benign (CMS/HCC) BP controlled and monitor PRN. Gastroesophageal reflux disease without esophagitis Occasional symptoms and use OTC PRN. Type 2 diabetes mellitus with hyperglycemia, without long-term current use of insulin (CMS/HCC) - Primary Not checking BS and due for A1C. Stick to ADA diet and limit carbs. Relevant Orders Hemoglobin A1c documented in this encounter [facility] 02-02-2024 History of Present illness Narrative Images from the original note were not included. Subjective Patient ID: Abbey Robert is a 63 y.o. male who presents for Procedure (Established pt presents today requesting total phenol matricectomy of the LGT.). HPI Outpatient procedure: Total matricectomy/phenol technique left great toe. Patient states his intention to proceed as discussed and proposed. Well satisfied with outcome to date of same procedure right great toe. Risk factors: Type II diabetes. Eliquis therapy. Mobility and flexibility restraints. Toenail deformity. Digital and/or shoe trauma and related complications. Medications Current Outpatient Medications: apixaban (Eliquis) 5 MG tablet, Take 1 tablet by mouth in the morning and 1 tablet before bedtime., Disp: , Rfl: atorvastatin (Lipitor) 40 MG tablet, Take 1 tablet (40 mg) by mouth at bedtime, Disp: 30 tablet, Rfl: 5 cholecalciferol (Vitamin D-3) 50 MCG (1999 UT) tablet, TAKE 1 TABLET BY MOUTH EVERY DAY, Disp: 30 tablet, Rfl: 5 lisinopril 20 MG tablet, TAKE 1 TABLET BY MOUTH TWICE A DAY, Disp: 180 tablet, Rfl: 3 metFORMIN XR (Glucophage-XR) 500 MG 24 hr tablet, TAKE 1 TABLET BY MOUTH TWICE A DAY, Disp: 180 tablet, Rfl: 3 metoprolol succinate XL (Toprol-XL) 25 MG 24 hr tablet, Take 1 tablet by mouth Daily, Disp: , Rfl: semaglutide (Ozempic, 0.25 or 0.5 MG/DOSE,) 2 MG/1.5ML solution pen-injector, Inject 0.5 mg under the skin 1 (one) time per week, Disp: 4 each, Rfl: 5 Allergies Penicillins Past Surgical History Past Surgical History: Procedure Laterality Date CARDIOVERSION ENDOMETRIAL ABLATION TONSILLECTOMY Family History Family History Problem Relation Name Age of Onset Heart disease Mother Rayne Hypertension Mother Rayne Diabetes Father Savage Hypertension Father Savage Heart disease Father Savage Cancer Brother Pepito Lung Cancer Paternal Grandfather Abbey Peterson Objective General assessment: Alert and oriented. Pleasant disposition. Accompanied by his spouse, Louisa. Vascular: DP 2/4 bilateral. PT 1/4 bilateral. CFT brisk all digits. Gradient temperature: Warm-warm bilateral. Unremarkable for ankle edema. Neurologic: Tactile and light touch sensation intact. Dermatologic: Skin turgor is good. Web space areas are clean, dry, non-inflamed. Unremarkable for eczema or dermatitis. Right great toe: Satisfactory total matricectomy. Left great toe: DSO/pincer toenail deformity: Toenail dystrophy, thickening, elongation, discoloration, crumbly texture, periungual keratotic and mycotic debris; the distal margins are deeply incurvated, tender, non-inflamed, without drainage. Full length centrally located mycotic spike.. All remaining digits: Toenails are clear and non-dystrophic. No signs of ulceration. Orthopedic: Range of motion: Demonstrates functional ankle, subtalar and 1st MTP joint range of motion Lesion pattern: No forefoot or digital discrete keratotic lesions are noted. Radiology: Assessment/Plan Symptomatic DSO/pincer toenail deformity left great toe. Satisfactory outcome total matricectomy/phenol technique right great toe (09/08/2023). Type II diabetes. Plan: Procedure: Total matricectomy/phenol technique left great toe. Indications for procedure: As noted above: Chronic, symptomatic onychodystrophy/mycosis. Patient expresses no interest in any other treatment. As noted, patient is well satisfied with outcome of right great toe. The consent form is reviewed in detail, sufficient to his understanding, signed, witnessed and dated, there are no contraindications at this time. Post-procedure instructions: Written and verbal provided: Remove dressing 24 hours. Cleanse once or twice daily with warm soapy water and apply triple antibiotic ointment or equivalent. Warm Epson salt soaks as directed as needed. Band-Aid dressing as necessary, otherwise allow exposure to air as able to do so. Activity and shoe gear as tolerated. Ibuprofen and/or Tylenol as needed for comfort. Procedure: Left great toe: Aseptic technique: Local infiltrative H-block anesthesia: Xylocaine 2 percent plain: 4 cc total. The left foot is prepped and draped in sterile fashion; the patient comfortably positioned for the procedure. A tourniquet is placed at the base of the left hallux for hemostasis. The dystrophic nail plate is bluntly freed from all soft tissue attachments, and removed in its entirety. No drainage encountered. The entire matrix envelope is opened and thoroughly dried, with curettage of all debris. Chemical cauterization via phenol: 30 seconds x 3 applications with interval curettage. Discoloration of the matrix envelope is appreciated, reflecting effective cauterization. Saline irrigation. Amerigel Hydrogel dressing. Tourniquet released, CFT immediate, with no bleeding complications encountered. Procedure well tolerated.. This note was created with the assistance of a speech recognition program. While intending to generate a timely document that accurately reflects the content of the visit, no guarantee can be provided that every grammatical or spelling mistake has been or will be identified or corrected. Thank you for your understanding. Radha Bonilla DPM documented in this encounter [facility] 02-02-2024 Instructions Radha Bonilla DPM - 02/02/2024 3:30 PM EDT Post-procedure instructions as noted documented in this encounter [facility] 01-05-2024 Telephone encounter Note Call from patient requesting refill. Requested Prescriptions Pending Prescriptions Disp Refills metoprolol succinate ER (TOPROL XL) 25 mg 24 hr tablet [Pharmacy Med Name: METOPROLOL SUCC ER 25 MG TAB] 180 tablet 3 Sig: take 1 tablet by mouth twice a day Patient last seen 03/08/23 Tiffanie Sutton [facility] 01-05-2024 Miscellaneous Notes Call from patient requesting refill. Requested Prescriptions Pending Prescriptions Disp Refills metoprolol succinate ER (TOPROL XL) 25 mg 24 hr tablet [Pharmacy Med Name: METOPROLOL SUCC ER 25 MG TAB] 180 tablet 3 Sig: take 1 tablet by mouth twice a day Patient last seen 03/08/23 Tiffanie Sutton documented in this encounter [facility] 08-08-2023 Telephone encounter Note Electronic request for refill. Requested Prescriptions Pending Prescriptions Disp Refills ELIQUIS 5 mg tab(s) [Pharmacy Med Name: ELIQUIS 5 MG TABLET] 180 tablet 3 Sig: take 1 tablet by mouth twice a day Last office visit in EP was 03/08/2023 Sue Tellez [facility] 08-08-2023 Miscellaneous Notes Electronic request for refill. Requested Prescriptions Pending Prescriptions Disp Refills ELIQUIS 5 mg tab(s) [Pharmacy Med Name: ELIQUIS 5 MG TABLET] 180 tablet 3 Sig: take 1 tablet by mouth twice a day Last office visit in EP was 03/08/2023 Sue Tellez documented in this encounter [facility] 03-08-2023 History of Present illness Narrative Images from the original note were not included. [facility] Josi Apodaca Department of Cardiovascular Medicine SECTION OF CARDIAC PACING and ELECTROPHYSIOLOGY OUTPATIENT VISIT DATE March 08, 2023 OUTPATIENT VISIT TYPE ESTABLISHED PRIMARY CARE PHYSICIAN: Michael Spangler MD ([facility]) [address] [place] [address] REFERRING PHYSICIAN: No referring provider defined for [...] and confirmed the findings of the Physician Roller Operator/Nurse Practitioner or fellow/resident above, with the addition [...] Jessica Winter MD documented in this encounter [facility] 01-14-2023 Miscellaneous Notes Call from patient requesting refill. Requested Prescriptions Pending Prescriptions Disp Refills metoprolol succinate ER (TOPROL XL) 25 mg 24 hr tablet 180 tablet 3 Sig: Take 1 tablet by mouth two times a day. Patient last seen 03/11/22 Tiffanie Sutton documented in this encounter [facility] 09-22-2022 Note Chief Complaint consultation for colonoscopy [...] Heart disease: Fa (more content not included)... [facility] Comment on above: Result Comment: Elec tronically Signed By: BRIGETTE KNOWLES, Terrence Avendaño\Date and Time Signed: 09/22/22 20:37 EDT 03-11-2022 History of Present illness Narrative Study [...] locations: N/A Zio Patch monitor placed by Sanitation Truck Cleaner: Yes Informed patient that this was his final study visit and that he needs to continue his SOC treatments and visits per MD direction. He verbalized understanding. Yard Truck Driver: Leny Leon Pager #: [phone] documented in this encounter [facility] 01-08-2022 Miscellaneous Notes Call from pharmacy requesting refill. Requested Prescriptions Pending Prescriptions Disp Refills metoprolol succinate ER (TOPROL XL) 25 mg 24 hr tablet [Pharmacy Med Name: METOPROLOL SUCC ER 25 MG TAB] 180 tablet 3 Sig: TAKE 1 TABLET BY MOUTH TWICE A DAY Patient last seen 09/24/21 Amee Fabian [facility] Electronically signed by Amee Caren [facility] at 01/08/2022 2:59 PM EDT documented in this encounter [facility] 10-07-2021 Note [facility] [place], [place] NAME: ABBEY ROBERT DATE OF : MEDICAL REC#: [id number] ACCESSIONER: 160ROCIO HODGES ADMIT DATE: 10/07/2021 06:32:00 CLEAN OUT DRILLER HELPER DATE: 10/07/2021 23:54 DICTATING PHYSICIAN: TRERENCE CAPPS DICTATION DATE: 10/07/2021 08:16 OPERATIVE NOTE [...] Capps MD on 10/12/2021 05:16 PM EDT [facility] Signed and Approved by: DR TERRENCE CAPPS . 10/12/2021 17:16:00 [facility] 09-24-2021 History of Present illness Narrative EVENT MONITOR DISPOSABLE PATCH INSTRUCTIONS Patient Name: Abbey [facility] Number: [id number] Skin prepped and cleansed with alcohol Patch secured to prepped area Monitor Activated Serial #: [id number] Patient Instructed: 1.) Prescribed order timeframe 2.) Bathing guidelines 3.) Usage of event button and diary documentation 4.) Return of monitor at the end of prescribed order 5.) Call with problems [phone] or [phone] ext. [phone] Patient expresses a good understanding of instructions Nighat EDGE documented in this encounter [facility] 09-24-2021 History of Present illness Narrative Images from the original note were not included. [facility] Apodaca Department of Cardiovascular Medicine SECTION OF CARDIAC PACING and ELECTROPHYSIOLOGY OUTPATIENT VISIT DATE September 24, 2021 OUTPATIENT VISIT TYPE ESTABLISHED PRIMARY CARE PHYSICIAN: Michael Spangler MD ([facility]) [address] [place] [address] CHIEF COMPLAINT: AF HISTORY OF PRESENT ILLNESS/NURSING [...] prophylaxis without bleeding complications. He has a [id number] score of 1 for hypertension. EKG today: [...] prophylaxis without bleeding complications. He has a [id number] score of 1 for hypertension. EKG today: Doing very well post ablation with no recurrence. Continue current medications and follow-up in 6 months or sooner if needed. I personally interviewed, confirmed and edited the above information as obtained by others. CONTACT INFORMATION: Jessica Winter MD documented in this encounter [facility] 09-21-2021 Miscellaneous Notes Electronic request for refill. Pending Prescriptions Disp Refills ELIQUIS 5 MG TABLET 180 tablet 3 Sig: TAKE 1 TABLET BY MOUTH TWICE A DAY LENA: Yes Last office visit in was 06/23/2021 Sue Tellez documented in this encounter [facility] 07-09-2021 Miscellaneous Notes Mr. Robert has two months' worth of Eliquis at home and may be able to discontinue after his f/u visit with Dr. Winter. He will discuss at his visit. Kristyn Pretty RN Mr. Robert returned nurse call, asking to be contacted Amee Magdaleno Images from the original note were not included. Full fax scanned into [employer] drive. Electronically signed by Amee Fabian [facility] at 07/03/2021 3:30 PM EDTdocumented in this encounter [facility] 07-02-2021 Miscellaneous Notes PA submitted via [employer]. Isidra De Jesus RN Images from the original note were not included. Electronically signed by Lana Grisgby [facility] at 07/01/2021 1:47 PM EDTdocumented in this encounter [facility] 06-23-2021 History of Present illness Narrative HOLTER MONITOR APPLICATION Patient Name: Abbey [facility] Number: [id number] Chest is cleansed with alcohol Skin prep [...] or 48 hours 6.) Call with problems [phone] OR [phone] Patient expresses good verbal understanding of instructions GIUSEPPE Garcia documented in this encounter [facility] 06-23-2021 History of Present illness Narrative Study [...] visits: No Zio Patch monitor placed by Sanitation Truck Cleaner: Yes Discussed with the patient the importance of follow up in the study and time of next required study visit. He verbalized understanding. The patient prefers 6-month follow up in person. Patient contact information reaffirmed and updated. Coordinator contact information provided to the patient. Education provided: Follow up requirements/schedule Materials dispensed: None Yard Truck Driver: Mariah Cavazos PA-C Pager #: [phone] documented in this encounter [facility] 06-23-2021 Nurse Note 1. How often on [...] Miri Cunha RN documented in this encounter [facility] 06-23-2021 History of Present illness Narrative Images from the original note were not included. [facility] [facility] Apod[facility] Department of Cardiovascular Medicine SECTION OF CARDIAC PACING and ELECTROPHYSIOLOGY OUTPATIENT VISIT DATE June 23, 2021 OUTPATIENT VISIT TYPE ESTABLISHED PRIMARY CARE PHYSICIAN: Michael Spangler MD ([facility]) [address] [place] [address] CHIEF COMPLAINT: AF HISTORY OF PRESENT ILLNESS/NURSING [...] me in 6 months with an echo. Jessica Winter MD I personally interviewed, confirmed [...] AAD Not applicable documented in this encounter [facility] Evaluation + Plan note No data available for this section General Surgery [place] Evaluation note Diagnosis IRB MAP AF PI: Dr. Shannon Dozier- Primary [facility] Atrial fibrillation, persistent (HCC)- Primary Atrial fibrillation [facility] Atrial fibrillation, persistent (HCC) Atrial fibrillation [facility] Persistent atrial fibrillation (HCC)- Primary Atrial fibrillation IRB MAP AF PI: Dr. Shannon Dozier documented in this [facility] Atrial fibrillation, persistent (HCC)- Primary Atrial fibrillation [facility] Diagnosis Atrial fibrillation, persistent (HCC)- Primary Atrial fibrillation Obstructive sleep apnea syndrome Obstructive sleep apnea (adult) (pediatric) Left atrial thrombus Other ill-defined heart disease Ejection fraction < 50% Other symptoms involving cardiovascular system [facility] Diagnosis Persistent atrial fibrillation (HCC)- Primary Atrial fibrillation IRB 20-461 MAP AF PI: Dr. Shannon Dozier [facility] Diagnosis IRB 20-461 MAP AF PI: Dr. Shannon Dozier- Primary [facility] Diagnosis Persistent atrial fibrillation (HCC)- Primary Atrial fibrillation Primary hypertension Unspecified essential hypertension [facility] Diagnosis Type 2 diabetes mellitus with hyperglycemia, without long-term current use of insulin (CMS/HCC)- Primary Essential hypertension, benign (CMS/HCC) Essential hypertension, benign REAL on CPAP Gastroesophageal reflux disease without esophagitis Esophageal reflux AF (paroxysmal atrial fibrillation) (CMS/HCC) Atrial fibrillation Encounter for long-term (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 medications Encounter for long-term (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 other medications Vitamin D deficiency Obesity (BMI 30-39.9) Screening PSA (prostate specific antigen) Special screening for malignant neoplasm of prostate Dermatophytosis of nail- Primary Dystrophic nail Other specified disease of nail Pain of left great toe Difficulty walking Difficulty in walking [facility] Diagnosis Type 2 diabetes mellitus with hyperglycemia, without long-term current use of insulin (CMS/HCC)- Primary Essential hypertension, benign (CMS/HCC) Essential hypertension, benign REAL on CPAP Gastroesophageal reflux disease without esophagitis Esophageal reflux AF (paroxysmal atrial fibrillation) (CMS/HCC) Atrial fibrillation Encounter for long-term (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 medications Encounter for long-term (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 other medications Vitamin D deficiency Obesity (BMI 30-39.9) Screening PSA (prostate specific antigen) Special screening for malignant neoplasm of prostate Type 2 diabetes mellitus with hyperglycemia, without long-term current use of insulin (CMS/HCC)- Primary Essential hypertension, benign (CMS/HCC) Essential hypertension, benign AF (paroxysmal atrial fibrillation) (CMS/HCC) Atrial fibrillation Gastroesophageal reflux disease without esophagitis Esophageal reflux [facility] Diagnosis Type 2 diabetes mellitus with hyperglycemia, without long-term current use of insulin (CMS/HCC)- Primary Essential hypertension, benign (CMS/HCC) Essential hypertension, benign REAL on CPAP Gastroesophageal reflux disease without esophagitis Esophageal reflux AF (paroxysmal atrial fibrillation) (CMS/HCC) Atrial fibrillation Encounter for long-term (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 medications Encounter for long-term (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 other medications Vitamin D deficiency Obesity (BMI 30-39.9) Screening PSA (prostate specific antigen) Special screening for malignant neoplasm of prostate Type 2 diabetes mellitus with hyperglycemia, without long-term current use of insulin (CMS/HCC)- Primary Essential hypertension, benign (CMS/HCC) Essential hypertension, benign AF (paroxysmal atrial fibrillation) (CMS/HCC) Atrial fibrillation Gastroesophageal reflux disease without esophagitis Esophageal reflux Postoperative visit- Primary Dermatophytosis of nail documented [facility] this [facility]* Diagnosis Type 2 diabetes mellitus with hyperglycemia, without long-term current use of insulin (CMS/HCC)- Primary Essential hypertension, benign (CMS/HCC) Essential hypertension, benign REAL on CPAP Gastroesophageal reflux disease without esophagitis Esophageal reflux AF (paroxysmal atrial fibrillation) (CMS/HCC) Atrial fibrillation Encounter for long-term (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 medications Encounter for long-term (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 other medications Vitamin D deficiency Obesity (BMI 30-39.9) Screening PSA (prostate specific antigen) Special screening for malignant neoplasm of prostate Type 2 diabetes mellitus with hyperglycemia, without long-term current use of insulin (CMS/HCC)- Primary Essential hypertension, benign (CMS/HCC) Essential hypertension, benign AF (paroxysmal atrial fibrillation) (CMS/HCC) Atrial fibrillation Gastroesophageal reflux disease without esophagitis Esophageal reflux Type 2 diabetes mellitus with hyperglycemia, without long-term current use of insulin (CMS/HCC)- Primary Essential hypertension, benign (CMS/HCC) Essential hypertension, benign AF (paroxysmal atrial fibrillation) (CMS/HCC) Atrial fibrillation REAL on CPAP Plantar fasciitis of right foot Annual physical exam Routine general medical examination at a health care facility documented in this encounter [facility] Discharge instructions No data available for this section General [facility] [place] Progress note No data available for this section [facility] [place] Reason for referral (narrative)* Outpatient Procedure (Routine) - Pending Review Specialty Diagnoses / Procedures Referred By Gagan t Referred To [facility] Diagnoses Atrial fibrillation, persistent (HCC) Procedures ECHO ECHO TTHRC R-T 2D W/WOM-MODE COMPL SPEC&COLR D Jessica Winter MD [address] [place] [address] [facility] [address] [place] [address] Referral ID Status Reason Start Date Expiration Date Visits Requested Visits Authorized [id number] Pending Review Auto-Generat ed Referral 06/23/2021 06/23/2022 1 1 [facility] for referral (narrative)* Outpatient Procedure (Routine) - Authorized Specialty Diagnoses / Procedures Referred By Contac t Referred To [facility] Diagnoses Persistent atrial fibrillation (HCC) Research study patient Procedures ECG COMPLETE ECG ROUTINE ECG W/LEAST 12 LDS W/I&R Jessica Winter MD [address] [place] [address] [facility] [address] [place] [address] Referral ID Status Reason Start Date Expiration Date Visits Requested Visits Authorized [id number] Authorized Auto-Generat ed Referral 06/24/2021 06/24/2022 1 1 [facility] for referral (narrative)* Outpatient Procedure (Routine) - Authorized Specialty Diagnoses / Procedures Referred By Contac t Referred To Contact [facility] Diagnoses Persistent atrial fibrillation (HCC) Research study patient Procedures ECG COMPLETE ECG ROUTINE ECG W/LEAST 12 LDS W/I&R Jessica Winter MD [address] [place] [address] [facility] [address] [place] [address] Referral ID Status Reason Start Date Expiration Date Visits Requested Visits Authorized [id number] Authorized Auto-Generat ed Referral 09/30/2021 09/30/2022 1 1 [facility] Summary Purpose Family History No Family History Records FoundNo Family History Records FoundNo Family History Records FoundNo Family History Records FoundNo Family History Records FoundNo Family History Records Found Advance Directives No Advanced Directives Records FoundDocuments on File Type Date Recorded Patient Accounts Payable Accountant Expl anation Advance Directive(s) 01/14/2021 9:41 AM Advance Directive(s) 01/13/2021 9:43 AM Advance Directive(s) 11/06/2020 9:05 AM Advance Directive(s) 11/13/2018 5:12 AM Advance Directive(s) 10/27/2018 12:26 PM Advance Directive(s) 08/14/2018 10:04 AM Advance Directive(s) 07/31/2018 11:29 AM Documents on File Type Date Recorded Patient Accounts Payable Accountant Expl anation Advance Directive(s) 01/14/2021 9:41 AM Advance Directive(s) 01/13/2021 9:43 AM Advance Directive(s) 11/06/2020 9:05 AM Advance Directive(s) 11/13/2018 5:12 AM Advance Directive(s) 10/27/2018 12:26 PM Advance Directive(s) 08/14/2018 10:04 AM Advance Directive(s) 07/31/2018 11:29 AM Reason for Referral Specialty Diagnoses / Procedures Referred By Gagan alvarez Referred To Contact Procedures CARDIOVASCULAR MEDICINE OP FOLLOW UP APPT ORDER Jessica Winter MD [address] [place] [address] Referral ID Status Reason Start Date Expiration Date Visits Requested Visits Authorized [id number] Ref Not Required PCP Requested Referral 03/08/2023 03/07/2024 1 1 Additional Source Comments (unrecognized sect ion and content) No Status Records FoundNo Status Records FoundNo Status Records FoundNo Status Records FoundNo Status Records FoundNo Status Records Found INFORMATION SOURCE (unrecogn ized section and content) DATE CREATED AUTHOR 04/27/2019 [facility] DATE CREATED AUTHOR AUTHOR'S ORGANIZ ATION 02/20/2022 [facility] DATE CREATED AUTHOR AUTHOR'S ORGANIZ ATION 11/18/2022 [facility] DATE CREATED AUTHOR AUTHOR'S ORGANIZ ATION 05/22/2024 [facility] DATE CREATED AUTHOR AUTHOR'S ORGANIZ ATION 06/01/2024 [facility] DATE CREATED AUTHOR AUTHOR'S ORGANIZ ATION 08/10/2024 [facility] EPIC Source Comments (unrecognize d section and content) In the event this informatio n is protected by the Federal Confidentiality of Alcohol and Drug Abuse Patient Records regulations: The Federal rules restrict any use of the information to criminally investigate or prosecute any alcohol or drug abuse patient.[facility] event this information is protected by the Federal Confidentiality of Alcohol and Drug Abuse Patient Records regulations: The Federal rules restrict any use of the information to criminally investigate or prosecute any alcohol or drug abuse patient.[facility] the event this information is protected by the Federal Confidentiality of Alcohol and Drug Abuse Patient Records regulations: The Federal rules restrict any use of the information to criminally investigate or prosecute any alcohol or drug abuse patient.[facility] the event this information is protected by the Federal Confidentiality of Alcohol and Drug Abuse Patient Records regulations: The Federal rules restrict any use of the information to criminally investigate or prosecute any alcohol or drug abuse patient.[facility] the event this information is protected by the Federal Confidentiality of Alcohol and Drug Abuse Patient Records regulations: The Federal rules restrict any use of the information to criminally investigate or prosecute any alcohol or drug abuse patient.[facility] the event this information is protected by the Federal Confidentiality of Alcohol and Drug Abuse Patient Records regulations: The Federal rules restrict any use of the information to criminally investigate or prosecute any alcohol or drug abuse patient.[facility] the event this information is protected by the Federal Confidentiality of Alcohol and Drug Abuse Patient Records regulations: The Federal rules restrict any use of the information to criminally investigate or prosecute any alcohol or drug abuse patient.[facility] the event this information is protected by the Federal Confidentiality of Alcohol and Drug Abuse Patient Records regulations: The Federal rules restrict any use of the information to criminally investigate or prosecute any alcohol or drug abuse patient.[facility] the event this information is protected by the Federal Confidentiality of Alcohol and Drug Abuse Patient Records regulations: The Federal rules restrict any use of the information to criminally investigate or prosecute any alcohol or drug abuse patient.[facility] the event this information is protected by the Federal Confidentiality of Alcohol and Drug Abuse Patient Records regulations: The Federal rules restrict any use of the information to criminally investigate or prosecute any alcohol or drug abuse patient.[facility] the event this information is protected by the Federal Confidentiality of Alcohol and Drug Abuse Patient Records regulations: The Federal rules restrict any use of the information to criminally investigate or prosecute any alcohol or drug abuse patient.[facility] the event this information is protected by the Federal Confidentiality of Alcohol and Drug Abuse Patient Records regulations: The Federal rules restrict any use of the information to criminally investigate or prosecute any alcohol or drug abuse patient.[facility] the event this information is protected by the Federal Confidentiality of Alcohol and Drug Abuse Patient Records regulations: The Federal rules restrict any use of the information to criminally investigate or prosecute any alcohol or drug abuse patient.[facility] the event this information is protected by the Federal Confidentiality of Alcohol and Drug Abuse Patient Records regulations: The Federal rules restrict any use of the information to criminally investigate or prosecute any alcohol or drug abuse patient.[facility] the event this information is protected by the Federal Confidentiality of Alcohol and Drug Abuse Patient Records regulations: The Federal rules restrict any use of the information to criminally investigate or prosecute any alcohol or drug abuse patient.[facility] the event this information is protected by the Federal Confidentiality of Alcohol and Drug Abuse Patient Records regulations: The Federal rules restrict any use of the information to criminally investigate or prosecute any alcohol or drug abuse patient.[facility] the event this information is protected by the Federal Confidentiality of Alcohol and Drug Abuse Patient Records regulations: The Federal rules restrict any use of the information to criminally investigate or prosecute any alcohol or drug abuse patient.[facility] the event this information is protected by the Federal Confidentiality of Alcohol and Drug Abuse Patient Records regulations: The Federal rules restrict any use of the information to criminally investigate or prosecute any alcohol or drug abuse patient.[facility] the event this information is protected by the Federal Confidentiality of Alcohol and Drug Abuse Patient Records regulations: The Federal rules restrict any use of the information to criminally investigate or prosecute any alcohol or drug abuse patient.[facility] Reason for Visit (unrecogniz ed section and content) Reason Comments Research IRB 20-461 MAP AF Reason Comments Holter Monitor Application 24 Reason Comments Prior Auth from Cover [employer] Med[employer] Reason Comments Medication Problem Prior auth denial Reason Comments Refill Request Reason Comments Event zio Reason Comments Research F/U IRB 20-461 MAP AF PI : Dr. Shannon Dozier Reason Comments Procedure Established pt prese nts today requesting total phenol matricectomy of the LGT. Reason Comments Follow-up 6m Reason Comments Post-op Established pt prese nts today for 10-14 day fuv for total phenol matricectomy, LGT. Reason Comments Patient Question Reason Comments Follow-up 6m f/upLeg cramping Foot Injury Right foot pain, kwaku d to walk Knee Pain Bilateral knee pain Care Teams (unrecognized sec tion and content) Game Room Attendant Relationship Specialty Start Date End Date Michael Spangler [address] [place] [address] PCP - General Family Practice 07/18/18 Donavon Morales [address] [place] [address] Referring Cardiology 07/06/18 Game Room Attendant Relationship Specialty Start Date End Date Michael Spangler [address] [place] [address] PCP - General Family Practice 07/18/18 Donavon Morales [address] [place] [address] Referring Cardiology 07/06/18 Game Room Attendant Relationship Specialty Start Date End Date Michael Spangler [address] [place] [address] PCP - General Family Practice 07/18/18 Donavon Moarles [address] [facility] [place] [address] Referring Cardiology 07/06/18 Game Room Attendant Relationship Specialty Start Date End Date Michael Spangler [address] [place] [address] PCP - General Family Practice 07/18/18 Donavon Morales [address] [place] [facility] [address] Referring Cardiology 07/06/18 Game Room Attendant Relationship Specialty Start Date End Date CrysMichael [address] [place] [address] PCP - General Family Practice 07/18/18 Donavon Morales [address] [place] [facility] [address] Referring Cardiology 07/06/18 Game Room Attendant Relationship Specialty Start Date End Date CrysMichael [address] [place] [address] PCP - General Family Practice 07/18/18 Carmen Donavon Neeraj [address] [place] [facility] [address] Referring Cardiology 07/06/18 Game Room Attendant Relationship Specialty Start Date End Date CrysMichael [address] [place] [address] PCP - General Family Practice 07/18/18 Donavon Morales [address] [place] [facility] [address] Referring Cardiology 07/06/18 Game Room Attendant Relationship Specialty Start Date End Date KeeleybullMichael [address] [place] [address] PCP - General Family Practice 07/18/18 Donavon Morales [address] [place] [facility] [address] Referring Cardiology 07/06/18 Game Room Attendant Relationship Specialty Start Date End Date Michael Spangler [address] [place] [address] PCP - General Family Practice 07/18/18 Donavon Morales [address] [place] [facility] [address] Referring Cardiology 07/06/18 Game Room Attendant Relationship Specialty Start Date End Date Michael Spangler [address] [place] [address] PCP - General Family Practice 07/18/18 Donavon Morales [address] [place] [facility] [address] Referring Cardiology 07/06/18 Game Room Attendant Relationship Specialty Start Date End Date Michael Spangler [address] [place] [address] PCP - General Family Medicine 07/18/18 Donavon Morales [address] [place] [facility] [address] Referring Cardiology 07/06/18 Game Room Attendant Relationship Specialty Start Date End Date Michael Spangler [address] [place] [address] PCP - General Family Medicine 07/18/18 Donavon Morales [address] [place] [facility] [address] Referring Cardiology 07/06/18 Game Room Attendant Relationship Specialty Start Date End Date Michael Spangler [address] [place] [address] PCP - General Family Medicine 07/18/18 Donavon Morales MD [address] [place] [facility] [address] Referring Cardiology 07/06/18 Game Room Attendant Relationship Specialty Start Date End Date Michael Spangler [address] [place] [address] PCP - General Family Medicine 07/18/18 Donavon Morales MD [address] [place] [facility] [address] Referring Cardiology 07/06/18 Game Room Attendant Relationship Specialty Start Date End Date Michael Spangler [address] [place] [address] PCP - General Family Medicine 07/18/18 Donavon Morales MD [address] [place] [facility] [address] Referring Cardiology 07/06/18 Game Room Attendant Relationship Specialty Start Date End Date Michael Spangler [address] [place] [address] PCP - General Family Medicine 07/18/18 Donavon Morales MD [address] [place] [facility] [address] Referring Cardiology 07/06/18 Game Room Attendant Relationship Specialty Start Date End Date Michael Spangler [address] [place] [address] PCP - General Family Medicine 07/18/18 Donavon Morales MD [address] [place] [address] Referring Cardiology 07/06/18 Game Room Attendant Relationship Specialty Start Date End Date Michael Spangler MD [address] [place] [address] PCP - [place] [employer] 04/04/23 Michael Spangler MD [address] [place] [address] PCP - General Family Medicine 08/10/23 Game Room Attendant Relationship Specialty Start Date End Date Michael Spangler MD [address] [place] [address] PCP - [place] [employer] 04/04/23 Michael Spangler MD [address] [place] [address] PCP - General Family Medicine 08/10/23 Game Room Attendant Relationship Specialty Start Date End Date Michael Spangler MD [address] [place] [address] PCP - [place] [employer] 04/04/23 Michael Spangler MD [address] [place] [address] PCP - General Family Medicine 08/10/23 Game Room Attendant Relationship Specialty Start Date End Date Michael Spangler MD [address] [place] [address] PCP - [place] [employer] 04/04/23 Michael Spangler MD [address] [place] [address] PCP - General Family Medicine 08/10/23 Game Room Attendant Relationship Specialty Start Date End Date Michael Spangler MD [address] [place] [address] PCP - [place] [employer] 04/04/23 Michael Spangler MD [address] [place] [address] PCP - General Family Medicine 08/10/23 Game Room Attendant Relationship Specialty Start Date End Date Michael Spangler MD [address] [place] [address] PCP - [place] [employer] 04/04/23 Michael Spangler MD [address] [place] [address] PCP - General Family Medicine 08/10/23 Game Room Attendant Relationship Specialty Start Date End Date Michael Spangler MD [address] [place] [address] PCP - [place] [employer] 04/04/23 Michael Spangler MD [address] [place] [address] PCP - General Family Medicine 08/10/23 Game Room Attendant Relationship Specialty Start Date End Date Michael Spangler MD [address] [place] [address] PCP - General Family Medicine 07/18/18 Donavon Morales MD [address] [place] [facility] [address] Referring Cardiology 07/06/18 Game Room Attendant Relationship Specialty Start Date End Date Michael Spangler MD [address] [place] [address] PCP - [place] [employer] 04/04/23 Michael Spangler MD [address] [place] [address] PCP - General Family Medicine 08/10/23 Game Room Attendant Relationship Specialty Start Date End Date Michael Spangler MD [address] [place] [address] PCP - [place] [employer] 04/04/23 Michael Spangler MD [address] [place] [address] PCP - General Family Medicine 08/10/23 FOR RECORDS PERTAINING TO PATIENTS WHO ARE [...] BE BASED ON THE PRIMARY CLINICAL RECORDS. [facility]. provides no warranty or guarantee of the accuracy or completeness of information in this document.
--- OUTSIDE RECORDS SUMMARY | 2024-09-01 09:18 | XMS_ITS | Encounter Summary ---
Author Organization [facility] Address [address] [place] [address] Care Team Providers Care Executive Account Manager Name Role Phone Michael Plummer MD Unavailable Michael Plummer MD Primary Care Provider [phone] Reason for Visit * Reason Comments Med Refill Encounter Details Date Type Department Care Team (Late st Contact Info) Description 06/30/2024 [facility] [address] [place] [address] Michael Plummer MD [address] [place] [address] Essential hypertension, benign (CMS/HCC) Social History Tobacco Use Types Packs/Day Years [...] declined 08/03/2023 How often do you attend religion or lutheran serv ices? Patient declined 08/03/2023 Do you belong to any clubs o r organizations such as religion groups, unions, fraternal or athletic groups, or [...] medical care, and heating? Patient declined 08/03/2023 [facility] - Occupational Stress [...] place to sleep or slept in a prison (including now)? Patient declined 08/03/2023 Sex and Gender Information Value Date Recorded Sex Assigned at Not on file Legal Sex Male 8:26 AM EST Gender Identity Not on file Sexual Orientation Not on file documented as of this encounter Miscellaneous Notes * Telephone Encounter - [facility] - 07/02/2024 3:08 PM EDT MEDICATION SENT TO [facility] documented in this encounter Plan of Treatment Upcoming Encounters Date Type Department Care Team (Late st Contact Info) Description 02/08/2025 9:00 AM EST Office Visit [facility] [address] [place] [address] Michael Plummer MD [address] [place] [address] documented as of this encounter Visit Diagnoses Diagnosis Essential hypertension, benign (CMS/HCC) Essential hypertension, benign documented in this encounter Care Teams Executive Account Manager Relationship Specialty Start Date End Date Michael Plummer MD [address] [place] [address] PCP - [employer] 04/04/23 Michael Plummer MD [address] [place] [address] PCP - General Family Medicine 08/10/23 documented as of this encounter
--- OUTSIDE RECORDS SUMMARY | 2024-09-01 09:18 | XMS_ITS | Clinical Summary ---
Author Organization [facility] Address [address] [place] [address] Care Team Providers Care Rug Dry Room Attendant Name Role Phone Michael Plummer MD Unavailable Michael Plummer MD Primary Care Provider [phone] Allergies Active Allergy Reactions Criticality Noted Date Comments Penicillins Other,Unknown 07/18/2018 Medications apixaban (Eliquis) 5 MG tablet Take 1 tablet by mouth in the morning and 1 tablet before bedtime. Active metoprolol succinate XL (Toprol-XL) 25 MG 24 hr tablet Take 1 tablet by mouth Daily Active metFORMIN XR (Glucophage-XR) 500 MG 24 hr tabletIndications :Type 2 diabetes mellitus with hyperglycemia (CMS/HCC) TAKE 1 TABLET BY MOUTH TWICE A DAY 180 tablet 3 02/20/20 24 Active lisinopril 20 MG tabletIndications :Essential hypertension, benign (CMS/HCC) TAKE 1 TABLET BY MOUTH TWICE A DAY 180 tablet 3 07/03/19 25 Active cholecalciferol (Vitamin D-3) 50 MCG (1999) tabletIndications :Vitamin D deficiency, unspecified,Vitam in D deficiency TAKE 1 TABLET BY MOUTH EVERY DAY 30 tablet 5 07/18/19 25 Active atorvastatin (Lipitor) 40 MG tabletIndications :Type 2 diabetes mellitus with hyperglycemia, without long-term current use of insulin (CMS/HCC) TAKE 1 TABLET BY MOUTH EVERYDAY AT BEDTIME 90 tablet 1 08/07/19 25 Active semaglutide (Ozempic, 1 MG/DOSE,) 4 MG/3ML solution pen-injectorIndic ations:Type 2 diabetes mellitus with hyperglycemia, without long-term current use of insulin ([facility]) Inject 1 mg under the skin 1 (one) time per week 1 each 08/08/19 Active Blood Glucose Monitoring Suppl (Blood Glucose Monitor System) w/Device kitIndications:Ty pe 2 diabetes mellitus with hyperglycemia, without long-term current use of insulin ([facility]) 1 each Daily 1 kit 08/08/19 25 Active Glucose Blood (Blood Glucose Test) stripIndications: Type 2 diabetes mellitus with hyperglycemia, without long-term current use of insulin ([facility]) 1 each by In Vitro route Daily 50 strip 08/08/19 Active Lancets Micro Thin 33G miscIndications:T ype 2 diabetes mellitus with hyperglycemia, without long-term current use of insulin ([facility]) 1 each Daily 50 each 08/08/19 25 Active atorvastatin (Lipitor) 40 MG tabletIndications :Type 2 diabetes mellitus with hyperglycemia, without long-term current use of insulin ([facility]) TAKE 1 TABLET BY MOUTH AT BEDTIME 90 tablet 1 02/09/20 24 025 Discontinued Semaglutide,0.25 or 0.5MG/DOS, (Ozempic, 0.25 or 0.5 MG/DOSE,) 2 MG/3ML solution pen-injectorIndic ations:Type 2 diabetes mellitus with hyperglycemia, without long-term current use of insulin ([facility]) INJECT 0.5 MG UNDER THE SKIN 1 (ONE) TIME PER WEEK 3 mL 5 06/26/19 25 025 Discontinued predniSONE (Deltasone) 50 MG tabletIndications :Plantar fasciitis of right foot Take 1 tablet (50 mg) by mouth Daily for 6 days 6 tablet 08/08/19 25 025 Active Problems Problem Noted Date Diagnosed Date Plantar fasciitis of right foot 08/07/2024 Assessment & Plan (08/07/2024 3:38 PM EDT): History and exam suggestive plantar fasciitis. Start prednisone x 5 days for inflammation and pain. Handout with stretches to patient and ice at end of day. Discussed importance of proper supportive shoes. If continue to have problems will need PT and x-ray. May need podiatry for injections. Continue meds as prescribed. If develop new or worsening symptoms contact office. AF (paroxysmal atrial fibrillation) 08/10/2023 Assessment & Plan (08/07/2024 3:38 PM EDT): In NSR and continue medication. Follow up with cardiology. Assessment & Plan (02/08/2024 11:30 AM EST): In NSR and continue medication. Follow up with cardiology. Assessment & Plan (08/10/2023 1:53 PM EDT): In NSR and continue medication. Follow up with cardiology. Essential hypertension, benign 08/10/2023 Assessment & Plan (08/07/2024 3:38 PM EDT): BP controlled and monitor PRN. Assessment & Plan (02/08/2024 11:30 AM EST): BP controlled and monitor PRN. Assessment & Plan (08/10/2023 1:53 PM EDT): BP controlled and monitor PRN. Generalized anxiety disorder 08/10/2023 Gastroesophageal reflux disease without esophagi tis 08/10/2023 Assessment & Plan (02/08/2024 11:30 AM EST): Occasional symptoms and use OTC PRN. Assessment & Plan (08/10/2023 1:54 PM EDT): Occasional symptoms and use OTC PRN. Leg cramp 08/10/2023 REAL on CPAP 08/10/2023 Assessment & Plan (08/07/2024 3:38 PM EDT): Sleeping well with CPAP and use nightly. The patient is benefiting from PAP therapy. Assessment & Plan (08/10/2023 1:54 PM EDT): Sleeping well with CPAP and use nightly. The patient is benefiting from PAP therapy. Type 2 diabetes mellitus wit h hyperglycemia, without long-term current use of insulin 08/10/2023 Assessment & Plan (08/07/2024 3:39 PM EDT): Not checking BS and due for A1C. Stick to ADA diet and limit carbs. Assessment & Plan (02/08/2024 11:31 AM EST): Not checking BS and due for A1C. Stick to ADA diet and limit carbs. Assessment & Plan (08/10/2023 1:54 PM EDT): Not checking BS and due for A1C. C/o side effects with higher dose ozempic and decrease. Stick to ADA diet and limit carbs. Vitamin D deficiency 08/10/2023 Encounter for long-term (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 medicat ions 08/10/2023 Screening PSA (prostate specific antigen) 2023 Class 1 obesity due to exces s calories with serious comorbidity and body mass index (BMI) of 34.0 to 34.9 in adult 08/10/2023 Encounters Date Type Department Care Team Description 08/07/2024 2:45 PM EDT Office Visit [facility] [address] [place] [address] Michael Plummer MD Type 2 diabetes mellitus with hyperglycemia, without long-term current use of insulin (CMS/HCC) (Primary Dx); Essential hypertension, benign (CMS/HCC); AF (paroxysmal atrial fibrillation) (CMS/HCC); REAL on CPAP; Plantar fasciitis of right foot; Annual physical exam 08/07/2024 Bamboo flowsheet [facility] [address] [place] [phone] Michael Plummer MD 08/06/2024 Travel 08/05/2024 Refill [facility] [address] [place] [address] Michael Plummer MD Type 2 diabetes mellitus with hyperglycemia, without long-term current use of insulin (CMS/HCC) 07/17/2024 Refill [facility] [address] [place] [address] Michael Plummer MD Vitamin D deficiency, unspecified; Vitamin D deficiency 06/30/2024 Refill [facility] [address] [place] [address] Michael Plummer MD Essential hypertension, benign (CMS/HCC) 06/23/2024 Refill [facility] [address] [place] [address] Michael Plummer MD Type 2 diabetes mellitus with hyperglycemia, without long-term current use of insulin ([facility]) from Last 3 Months Immunizations Immunization Administration Dates Next Due Pfizer Cook Cap SARS-CoV-2 Vaccination Pfizer Purple Cap SARS-CoV-2 Vaccination 021,06/18/2020 Tdap 07/06/2010 Family History Medical History Relation Name Comments Cancer Brother Pepito Lung Diabetes Father Savage Heart disease Father Savage Hypertension Father Savage Heart disease Mother Rayne Hypertension Mother Rayne Cancer Paternal Grandfather Nadeem Colon Relation Name Status Comments Brother Pepito Father Savage Mother Rayne Paternal Grandfather Nadeem Social History Tobacco Use Types Packs/Day Years Used Date Smoking Tobacco: Former Cigarettes 0.5 20 Smokeless Tobacco: Never Tobacco Cessation:Counseling Given: Not Answered Alcohol Use Standard Drinks/Week Comments Not Currently 1 (1 standard drink = 0.6 oz pur e alcohol) rare Social Connection and Isolation Panel [NHANES] A nswer Date Recorded Frequency of Communication with Friends and Fami ly Not on file 08/03/2023 How often do you get togethe r with friends or relatives? Patient declined 08/03/2023 How often do you attend anglican or oriental orthodox serv ices? Patient declined 08/03/2023 Do you belong to any clubs o r organizations such as anglican groups, unions, fraternal or athletic groups, or [...] medical care, and heating? Patient declined 08/03/2023 [facility] - Occupational Stress Questionnaire Answer Date Recorded [...] place to sleep or slept in a custodial (including now)? Patient declined 08/03/2023 Sex and Gender Information Value Date Recorded Sex Assigned at Not on file Legal Sex Male 8:26 AM EST Gender Identity Not on file Sexual Orientation Not on file Last Filed Vital Signs Vital Sign Reading Time Taken Comments Blood Pressure 126/58 08/07/2024 3:00 PM EDT Pulse 71 08/07/2024 3:00 PM EDT Temperature 36.4 C (97.5 F) 08/07/2024 3:00 PM EDT Respiratory Rate 18 08/07/2024 3:00 PM EDT Oxygen Saturation 95% 08/07/2024 3:00 PM EDT Inhaled Oxygen Concentration - - Weight 113 kg (249 lb) 08/07/2024 3:00 PM EDT Height 180.3 cm (5' 11 ) 08/07/2024 3:00 PM EDT Body Mass Index 34.73 08/07/2024 3:00 PM EDT Plan of Treatment Upcoming Encounters Date Type Department Care Team (Late st Contact Info) Description 02/08/2025 9:00 AM EST Office Visit [facility] [address] [place] [address] Michael Plummer MD [address] [place] [address] Health Maintenance Due Date Last Done Comments CT Colonography 1961 FIT 1961 FOBT 1960 Sigmoidoscopy 1960 Diabetes: Retinopathy Screening 09/07/1971 FIT-DNA 08/20/2023 08/19/2020 Diabetes: Hemoglobin A1C 08/12/2024 02/13/2024, 08/03 Diabetes: Urine Protein Screening 08/26/2024 024 Influenza Vaccine (Season Ended) 2024 Colonoscopy 10/20/2032 10/20/2022 Colorectal Cancer Screening 10/20/2032 Insurance BS Care Teams Rug Dry Room Attendant Relationship Specialty Start Date End Date Michael Plummer MD [address] [place] [address] PCP - [facility] 04/04/23 Michael Plummer MD [address] [place] [address] PCP - General Family Medicine 08/10/23
--- OUTSIDE RECORDS SUMMARY | 2024-09-01 09:18 | XMS_ITS | Encounter Summary ---
Author Organization [facility] Address [address] [place] [address] Care Team Providers Care Ball Warper Tender Name Role Phone Donavon Morales MD Unavailable + [phone] Michael Plummer MD Primary Care Provider [phone] Source Comments In the event this information is protected by the Federal Confidentiality of Alcohol and Drug AbusePatient Records regulations: The Federal rules restrict any use of the information to criminally investigate or prosecute any alcohol or drug abuse patient.[facility] Encounter Details Date Type Department Care Team (Late st Contact Info) Description 04/15/2021 Get Medical Advice Cardiology [address] [place] [address] Jessica Winter MD [address] [place] [address] Covid booster Social History Tobacco Use Types Packs/Day Years [...] N ot on file 03/11/2020 Data from: https://www.neighborhoodatlas.medicine.[facility]/. Last address used for calculation Not on [...] or suspected to have Coronavirus / COVID-19? No / Unsure 04/09/2021 9:44 AM EST documented as of this encounter Functional [...] on filedocumented in this encounter Care Teams Ball Warper Tender Relationship Specialty Start Date End Date Michael Plummer MD [address] [place] [address] PCP - General Family Medicine 07/18/18 Donavon Morales MD [address] [place] [address] Referring Cardiology 07/06/18 documented as of this encounter
--- OUTSIDE RECORDS SUMMARY | 2024-09-01 09:18 | XMS_ITS | Referral Summary ---
Author Organization [facility] Address [address] [place] [address] Care Team Providers Care Drapery Rod Assembler Name Role Phone Tom Bustillos MD Unavailable [phone] Michael Plummer MD Primary Care Provider [phone] Jessica Winter MD Unavailable [phone] Allergies Active Allergy Reactions Criticality Noted Date Comments Penicillins Other 05/04/2022 Medications Medication Sig Dispensed Refills Start Date End Date Status apixaban (Eliquis) 5 mg tablet Take 1 tablet by mouth in the morning and at bedtime. 09/21/2021 Active cholecalciferol (Vitamin D-3) 50 MCG (1999 [place]) tablet Take 2,000 Units by mouth in the morning. Active lisinopril 20 mg tablet Take 20 mg by mouth in the morning and 20 mg in the evening. Active metFORMIN (Glucophage) 500 mg tablet Take 500 mg by mouth. Active metoprolol succinate XL (Toprol-XL) 25 mg 24 hr tablet Take 1 tablet by mouth in the morning and at bedtime. 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 Overview (05/04/2022): per echo Atrial fibrillation 02/21/2018 Overview (05/04/2022): Baseline ECG: AF, QTc 440, iRBBB (QRSd 94) CrCl: 90 08/14/2018 - started Tikosyn 500 mcg 08/16/2018 - successful cardioversion to NSR Discharge on Tikosyn 500 mcg Q12 Renal infarction 02/21/2018 Immunizations Name Administration Dates Next Due Covid ([employer]) Bivalent Booster =>12 YRS 022 Tdap 07/06/2010 Unspecified Sars-Cov-2 Vaccination 07/20/2021,,06/18/2020 Social History Tobacco Use Types Packs/Day Years Used Date Smoking Tobacco: Former Cigarettes Q uit: 01/30/2018 Passive Smoke Exposure: Past Smokeless Tobacco: Never Alcohol Use Standard Drinks/Week Comments Yes 0 (1 standard drink = 0.6 oz pur e alcohol) [place] Safety & Environment Answer Date Rec orded Fear of Current or Ex-Partner Not on file Emotionally Abused Not on file 05/26/2023 Physically Abused Not on file 05/26/2023 Sexually Abused Not on file 05/26/2023 Physically or Sexually Abused Not on file Sex and Gender Information Value Date Recorded Sex Assigned at Not on file Gender Identity Not on file Sexual Orientation Not on file Last Filed Vital Signs Vital Sign Reading Time Taken Comments Blood Pressure 129/60 05/30/2024 10:01 AM EST Pulse 65 05/30/2024 10:01 AM EST Temperature - - Respiratory Rate 16 05/30/2023 9:42 AM EST Oxygen Saturation 98% 05/30/2024 10:01 AM EST Inhaled Oxygen Concentration - - Weight 113 kg (250 lb) 05/30/2024 10:01 AM EST Height 180.3 cm (5' 11 ) 05/30/2024 10:01 AM EST Body Mass Index 34.87 05/30/2024 10:01 AM EST Plan of Treatment Upcoming Encounters Date Type Department Care Team (Late st Contact Info) Description 05/30/2025 2:15 PM EST [facility] [address] [place] [address] Tom Bustillos MD [address] [facility] [address] [facility] [place] [address] Care Teams Drapery Rod Assembler Relationship Specialty Start Date End Date Michael Plummer MD [address] [place] [address] PCP - General 05/28/22 Tom Bustillos MD [address] [facility] [address] [facility] [place] [address] Consulting Physician Sleep Medicine 08/02/18 Jessica Winter MD [address] [place] [address] Maintenance Dispatcher Cardiology 05/28/22
--- OUTSIDE RECORDS SUMMARY | 2024-09-01 09:18 | XMS_ITS | Encounter Summary ---
Author Organization [facility] Address [address] [place] [address] Care Team Providers Care Cotton Header Name Role Phone Michael Plummer MD Primary Care Provider [phone] Michael Plummer MD Unavailable Michael Plummer MD Primary Care Provider [phone] Encounter Details Date Type Department Care Team (Late st Contact Info) Description 03/08/2023 Clinisync Result Encounter [facility] External Department Unsolicited Provider, Generic External Data Social History Tobacco Use Types Packs/Day Years Used Date Smoking Tobacco: Never Assessed Sex and Gender Information Value Date Recorded Sex Assigned at Not on file Legal Sex Male 8:26 AM EST Gender Identity Not on file Sexual Orientation Not on file documented as of this encounter Plan of Treatment Upcoming Encounters Date Type Department Care Team (Late st Contact Info) Description 02/08/2025 9:00 AM EST Office Visit [facility] [address] [place] [address] Michael Plummer MD [address] [place] [address] documented as of this encounter Procedures Procedure Name Priority Date/Time Associated Diagnosis Comments ECG 12-LEAD 03/08/2023 9:28 AM EST documented in this encounter Results * ECG 12 lead (03/08/2023 9:28 AM EST) 03/08/2023 9:28 AM EST Narrative [facility] - 03/21/2023 1:43 PM EST Ventricular Rate : 70 BPM Atrial Rate : 70 BPM P-R Interval : 152 ms QRS Duration : 100 ms Q-T Interval : 386 ms QTC Calculation(Bazett) : 416 ms Calculated P [place] : -92 degrees Calculated R [place] : 18 degrees Calculated T [place] : 30 degrees UNUSUAL P AXIS, POSSIBLE ECTOPIC ATRIAL RHYTHM ABNORMAL ECG Confirmed by fellow SANTOS BELLA MD ([id number]) on 03/21/2023 10:43:02 AM Confirmed by MD KARLA, PhD, KATHERINE ([id number]) on 03/21/2023 1:43:16 PM NAME : JAKOBABBEY PID : [id number] : 1960 Gender : Male Race : ORD : [id number] Procedure Date : Mar 08 2023 09:28:38 Edit Date : Mar 21 2023 13:43:17 Diagnosis: UNUSUAL P AXIS, POSSIBLE ECTOPIC ATRIAL RHYTHM ABNORMAL ECG Confirmed by fellow SANTOS BELLA MD ([id number]) on 03/21/2023 10:43:02 AM Confirmed by MD KARLA, PhD, KATHERINE ([id number]) on 03/21/2023 1:43:16 PM Test Reason : Location : 314 : J14 j1-4 Overread By : MD KARLA, PhD,KATHERINE Edited By : MD KARLA, PhD,KATHERINE Referred By : , Acquired by : MAXI LOCK Procedure Note Radiology, Radiologist, MD - 03/22/2023 Ventricular Rate : 70 BPM Atrial Rate : 70 BPM P-R Interval : 152 ms QRS Duration : 100 ms Q-T Interval : 386 ms QTC Calculation(Bazett) : 416 ms Calculated P [place] : -92 degrees Calculated R [place] : 18 degrees Calculated T [place] : 30 degrees UNUSUAL P AXIS, POSSIBLE ECTOPIC ATRIAL RHYTHM ABNORMAL ECG Confirmed by fellow SANTOS BELLA MD ([id number]) on 03/21/2023 10:43:02 AM Confirmed by MD KARLA, PhD, KATHERINE ([id number]) on 03/21/2023 1:43:16 PM NAME : ABBEY LOWE PID : [id number] : 1960 Gender : Male Race : ORD : [id number] Procedure Date : Mar 08 2023 09:28:38 Edit Date : Mar 21 2023 13:43:17 Diagnosis: UNUSUAL P AXIS, POSSIBLE ECTOPIC ATRIAL RHYTHM ABNORMAL ECG Confirmed by fellow SANOTS BELLA MD ([id number]) on 03/21/2023 10:43:02 AM Confirmed by MD KARLA, PhD, KATHERINE ([id number]) on 03/21/2023 1:43:16 PM Test Reason : Location : 314 : J14 j1-4 Overread By : MD KARLA, PhD,KATHERINE Edited By : MD KARLA, PhD,KATHERINE Referred By : , Acquired by : MAXI LOCK us Generic External Data Provider ECG ORDERABLES F inal Result [facility] documented in this encounter Visit Diagnoses Not on filedocumented in this encounter Care Teams Cotton Header Relationship Specialty Start Date End Date Michael Plummer MD PCP - General Family Medicine 02/02/23 08/09/23 Michael Plummer MD [address] [place] [address] PCP - [place] [employer] 04/04/23 Michael Plummer MD [address] [place] [address] PCP - General Family Medicine 08/10/23 documented as of this encounter
--- OUTSIDE RECORDS SUMMARY | 2024-09-01 09:18 | XMS_ITS | Encounter Summary ---
Author Organization [facility] Address [address] [place] [address] Care Team Providers Care Commercial Production Editor Name Role Phone Donavon Morales MD Unavailable [phone] Michael Plummer MD Primary Care Provider [phone] Source Comments In the event this information is protected by the Federal Confidentiality of Alcohol and Drug AbusePatient Records regulations: The Federal rules restrict any use of the information to criminally investigate or prosecute any alcohol or drug abuse patient.[facility] Encounter Details Date Type Department Care Team (Late st Contact Info) Description 07/10/2021 Get Medical Advice Cardiology [address] [place] [address] Jessica Winter MD [address] [place] [address] Question regarding HOLTER [employer]OR 24HR Social History Tobacco Use Types Packs/Day Years [...] N ot on file 03/11/2020 Data from: https://www.neighborhoodatlas.medicine.[facility]/. Last address used for calculation Not on file 03/11/2020 Sex and Gender Information Value Date Recorded Sex Assigned at Male 04/07/2021 6:28 PM EST Legal Sex Male 11:58 AM EDT Gender Identity Male 04/07/2021 6:28 PM EST Sexual Orientation Straight 04/07/2021 6: 28 PM EST COVID-19 Exposure Response Date Recorded In the last 10 days, have yo u been in contact with someone who was confirmed or suspected to have Coronavirus/COVID-19? No / Unsure 06/23/2021 10:01 AM EDT documented as of this encounter Functional Status * Are you deaf or do you have serious difficulty hearing? Answer Date of Assessment Author No 03/19/2021 5:23 PM Alyin Salvador RN * Are you blind or [...] on filedocumented in this encounter Care Teams Commercial Production Editor Relationship Specialty Start Date End Date Michael Plummer MD [address] [place] [address] PCP - General Family Medicine 07/18/18 Donavon Morales MD [address] [place] [address] Referring Cardiology 07/06/18 documented as of this encounter
--- OUTSIDE RECORDS SUMMARY | 2024-09-01 09:18 | XMS_ITS | Encounter Summary ---
Author Organization [facility] Address [address] [place] [address] Care Team Providers Care Physical Plant Employee Name Role Phone Donavon Morales MD Unavailable + [phone] Michael Plummer MD Primary Care Provider [phone] Source Comments In the event this information is protected by the Federal Confidentiality of Alcohol and Drug AbusePatient Records regulations: The Federal rules restrict any use of the information to criminally investigate or prosecute any alcohol or drug abuse patient.[facility] Encounter Details Date Type Department Care Team (Late st Contact Info) Description 10/07/2021 Get Medical Advice Cardiology [address] [place] [address] Jessica Winter MD [address] [place] [address] Question regarding EKG RHYTHM STRIP COMPLETE Social History Tobacco Use Types Packs/Day Years Used Date Smoking Tobacco: Former Cigarettes Q uit: 2018 Smokeless Tobacco: Never Alcohol Use Standard Drinks/Week Comments Yes 0 (1 standard drink = 0.6 oz pur e alcohol) rarely PHQ-2 Answer Date Recorded PHQ2 Score 0 11/13/2018 Area Deprivation Index Answer Date Vaibhav rded National Score (1-100), lower number is lower ri sk 67 09/24/2021 State Score (1-10), lower number is lower risk N ot on file 09/24/2021 Data from: https://www.neighborhoodatlas.medicine.[facility] Last address used for calculation [address] 09/24/2021 Sex and Gender Information Value Date Recorded Sex Assigned at Male 04/07/2021 6:28 PM EST Legal Sex Male 11:58 AM EDT Gender Identity Male 04/07/2021 6:28 PM EST Sexual Orientation Straight 04/07/2021 6: 28 PM EST COVID-19 Exposure Response Date Recorded In the last 10 days, have yo u been in contact with someone who was confirmed or suspected to have Coronavirus/COVID-19? Unable to assess 09/30/2021 7:39 AM EDT documented as of this encounter [...] Date Author No 03/19/2021 5:23 PM Aylin Salvaodr RN documented in this encounter Plan of Treatment Not on file documented as of this encounter Visit Diagnoses Not on filedocumented in this encounter Care Teams Physical Plant Employee Relationship Specialty Start Date End Date Michael Plummer MD [address] [place] [address] PCP - General Family Medicine 07/18/18 Donavon Morales MD [address] [place] [address] Referring Cardiology 07/06/18 documented as of this encounter
[2024-09-01 09:32] LABS: Basophils Absolute Auto 0.1 10^3/uL (0.0-0.1); Basophils Percent Auto 0.8 % (0.2-2.0); Eosinophils Absolute Auto 0.2 10^3/uL (0.0-0.7); Eosinophils Percent Auto 2.7 % (0.9-7.0); Hematocrit 45.1 % (42.0-54.0); Hemoglobin 14.8 g/dL (14.0-18.0); Immature Granulocytes Abs Auto 0.02 10^3/uL (0.00-0.03); Immature Granulocytes Pct Auto 0.3 % (0.0-0.5); Lymphocytes Absolute Auto 1.8 10^3/uL (1.2-3.8); Mean Corpuscular HGB Conc 32.8 g/dL (29.9-35.2); Mean Corpuscular Hemoglobin 27.7 pg (25.9-34.0); Mean Corpuscular Volume 84.3 fL (80.0-94.0); Mean Platelet Volume 9.2 fL (9.5-13.5); Monocytes Absolute Auto 0.6 10^3/uL (0.3-0.8); Monocytes Percent Auto 8.8 % (1.7-12.0); Neutrophils Absolute Auto 3.9 10^3/uL (1.4-6.5); Neutrophils Percent Auto 59.4 % (43.0-75.0); Platelet Count 182 10^3/uL (150-450); Red Blood Count 5.35 10^6/uL (4.70-6.10); Red Cell Distribution Width 13.4 % (11.0-15.0); White Blood Count 6.6 10^3/uL (4.0-11.0)
[2024-09-01 09:48] LABS: Creatinine Urine Random 134.03 mg/dL (20.00-300.00); Microalbumin Urine Random <1.3 mg/dL (<=30.0)
[2024-09-01 09:52] LABS: Estimated Average Glucose 209 mg/dL; Glycohemoglobin A1C 8.9 % (4.5-6.2)
[2024-09-01 09:58] LABS: Alanine Aminotransferase 66 U/L (16-63); Albumin Globulin Ratio 1.2; Albumin Level 3.6 g/dL (3.4-5.0); Alkaline Phosphatase 53 U/L (46-116); Anion Gap 13.2; Aspartate Amino Transferase 31 U/L (15-37); BUN Creatinine Ratio 23.5; Bilirubin Direct 0.2 mg/dL (0.0-0.2); Bilirubin Total 0.7 mg/dL (0.2-1.0); Calcium 8.5 mg/dL (8.5-10.1); Carbon Dioxide 25.9 mmol/L (21.0-32.0); Chloride 104 mmol/L (98-107); Chol HDL Ratio 2.5; Cholesterol 89 mg/dL (<=200); Estimated GFR (African America >60 (>=60 mL/min/1.73m^2); Estimated GFR (Non-African Ame >60 (>=60 mL/min/1.73m^2); Glucose 148 mg/dL (74-106); HDL Cholesterol 36 mg/dL (40-60); Potassium 4.1 mmol/L (3.5-5.1); Sodium 139 mmol/L (136-145); Thyroid Stimulating Hormone 1.196 uIU/mL (0.358-3.740); Total Protein 6.6 g/dL (6.4-8.2); Triglycerides 107 mg/dL (<=150); VLDL CHOLESTEROL 21.4 mg/dL
[2024-09-01 10:53] LABS: Prostate Specific Antigen Scrn 2.34 ng/mL (<=4.00)
== END 2024-09-01 09:16 | disposition home or self-care (01) ==
LOC: LAB 09:16
PROVIDERS: PCP Family Medicine; Visit Provider Family Medicine
DX: Z00.00 Encounter for general adult medical examination without abnormal findings (principal); E11.65 Type 2 diabetes mellitus with hyperglycemia
CPT/HCPCS: 36415; 80048; 80061; 80076; 82043; 82570; 83036; 84443; 85025; G0103

== ENCOUNTER 2024-10-27 11:33 | Emergency (ER) | payer BC, SELFPAY ==
[2024-10-27 11:36] VITALS: BP 160/70; PULSE 74; TEMP 36.8; O2SAT 95; BMI 33.5
--- OUTSIDE RECORDS SUMMARY | 2024-10-27 11:41 | XMS_ITS | CCD ---
Author Organization [facility] Care Team Providers Care Correctional Therapy Director Name Role Phone UNKNOWN, PROVIDER Admitting Unavailable UNKNOWN, PROVIDER Attending Unavailable DANYELEREMICHAEL Mckeon Referring Unavailable NADERER, MICHAEL Primary Care Unavailable Donavon Morales Unavailable [phone] Michael Spangler Primary Care Provider CRYS, MICHAEL Primary Care Physician [phone] Donavon Morales Unavailable [phone] Michael Spangler Primary Care Provider SHAIKH Selwyn MERCEDES Admitting Unavailable FAWWAChandrika, KLEIN H Attending Unavailable NADERER, DR MICHAEL Gregory Primary Care Unavailable NILL, DR OCAPMO Admitting Unavailable NILL, DR OCAMPO Attending Unavailable [...] NADERER, DR MICHAEL Gregory Consulting Unavailable FAWZEYAD, H Admitting Unavailable FAWWAChandrika, H Attending Unavailable NADERER, DR MICHAEL Gregory Primary Care Unavailable WEST, DR EMBER Brambila Consulting Unavailable LUNDBERG, CLAUDIO Consulting Unavailable FAWZEYAD, H Consulting Unavailable NADERER, DR MICHAEL Gregory Admitting Unavailable NADERER, DR MICHAEL Gregory Attending Unavailable NADERER, DR MICHAEL Gregory Primary Care Unavailable NADERER, DR MICHAEL A Consulting Unavailable Donavon Morales Unavailable Michael Spangler Primary Care Provider [phone] Terrence CPAPS Attending Unavailable BRIGETTE, Terrence Mckeon Attending Unavailable Terrence CAPPS Attending Unavailable Donavon Morales MD Unavailable Michael Spangler Primary Care Provider Michael Spangler [...] 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: [PENICILLINS] Drug allergy (disorder) 8 [facility] Rep[facility] (4 sources) Penicillin; 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: [penicillin] Drug Allergy Unknown (qualifier value) General Surgery [place] (15 sources) Penicillins Drug Allergy 9 Other, Unknown [facility] Medications Current Medications Medication Drug Class(es) Dates Sig (Normalized) Sig (Original) apixaban 5 mg oral tablet (20 sources) Factor Xa Inhibitor Start: 08-23-2022 End: 09-03-2024 take 1 tablet by mouth twice daily apixaban (ELIQUIS) 5 mg tab(s) Indications: Persistent atrial fibrillation (HCC) Take 1 tablet by mouth two times a day. 180 tablet 3 09/03/2024 Active Start: 09-03-2020 End: 09-21-2021 take 1 tablet by mouth twice daily ELIQUIS 5 mg tab(s) TAKE 1 TABLET BY MOUTH TWICE A DAY 180 tablet 3 09/21/2021 Active Comment on above: Take 1 tablet by bryon th twice daily. TAKE 1 TABLET BY BRYON TH TWICE A DAY atorvastatin 40 mg oral tablet (15 sources) HMG-CoA Reductase Inhibitor Start: take 1 tablet by mouth once daily at bedtime atorvastatin (Lipitor) 40 MG tablet Indications: Type 2 diabetes mellitus with hyperglycemia, without long-term current use of insulin ([facility]) TAKE 1 TABLET BY MOUTH EVERYDAY AT BEDTIME 90 tablet 1 08/06/2024 Active Start: 02-09-2024 take 1 tablet by bryon th at bedtime atorvastatin (Lipitor) 40 MG tablet Indications: Type 2 diabetes mellitus with hyperglycemia, without long-term current use of insulin ([facility]) TAKE 1 TABLET BY MOUTH AT BEDTIME 90 tablet 1 02/09/2024 Active Start: 08-10-2023 take 1 tablet by bryon th at bedtime atorvastatin (Lipitor) 40 MG tablet Indications: Type 2 diabetes mellitus with hyperglycemia, without long-term current use of insulin ([facility]) Take 1 tablet (40 mg) by mouth at bedtime 30 tablet 5 08/10/2023 Active Blood Glucose Monitoring Suppl (Blood Glucose Monitor System) w/Device kit (3 sources) Start: 08-07-2024 Blood Glucose Monitoring Suppl (Blood Glucose Monitor System) w/Device kit Indications: Type 2 diabetes mellitus with hyperglycemia, without long-term current use of insulin ([facility]) 1 each Daily 1 kit 08/07/2024 Active cholecalciferol 0.05 mg oral tablet (20 sources) Vitamin D Start: 12-12-2023 take 1 tablet by mouth once daily cholecalciferol (Vitamin D-3) 50 MCG (1999 UT) tablet Indications: Vitamin D deficiency, unspecified , Vitamin D deficiency TAKE 1 TABLET BY MOUTH EVERY DAY 30 tablet 5 07/17/2024 Active Comment on above: Take 2,000 Units by mouth once daily. hydrOXYzine hydrochloride 25 mg oral tablet (8 sources) Antihistamine take 1 tablet by mouth every six hours as needed hydrOXYzine HCl (ATARAX) 25 mg tablet Take 25 mg by mouth four times a day as needed. Active Comment on above: Take 25 mg by mouth four times a day as needed. lisinopril 20 mg oral tablet (20 sources) Angiotensin Converting Enzyme Inhibitor Start: 09-03-2020 take 1 tablet by mouth twice daily lisinopril 20 MG tablet Indications: Essential hypertension, benign ([facility]) TAKE 1 TABLET BY MOUTH TWICE A DAY 180 tablet 3 07/02/2024 Active Comment on above: Take 20 mg by mouth twice daily. 24 hr metFORMIN hydrochloride 500 mg extended release oral tablet (20 sources) Biguanide Start: 04-05-2023 End: 02-20-2024 take 1 tablet by mouth twice daily [...] OZEMPIC 1 mg/dose (4 mg/3 mL) pen (8 sources) Start: 02-14-2023 OZEMPIC 1 mg/dose (4 [...] long-term current use of insulin (CMS/HCC) Inject 0.5 mg under the skin 1 (one) time per week 4 each 5 08/10/2023 Active semaglutide (Ozempic, 1 MG/DOSE,) 4 MG/3ML solution pen-injector (3 sources) Start: 5 inject 1 mg by [...] without long-term current use of insulin ([facility]) INJECT 0.5 MG UNDER THE SKIN 1 (ONE) TIME PER WEEK 3 mL 5 06/25/2024 08/07/2024 Discontinued Start: 06-25-2024 Semaglutide,0. 25 or 0.5MG/DOS, (Ozempic, 0.25 or 0.5 MG/DOSE,) 2 MG/3ML solution pen-injector Indications: Type 2 diabetes mellitus with hyperglycemia, without long-term current use of insulin ([facility]) INJECT 0.5 MG UNDER THE SKIN 1 (ONE) TIME PER WEEK 3 mL 5 06/25/2024 Active 125 ml sodium chloride 9 mg/ ml prefilled syringe (20 sources) Start: 06-03-2020 End: 09-22-2022 sodium chloride 0.9 % (flush ) 10 mL (BD POSIFLUSH) Problems Active Problems Problem Classification Problem Date Documented Date Episodic/Chronic Anxiety disorders (15 sources) Generalized anxiety disorder; 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: [Generalized anxiety disorder] Onset: 08-10-2023 08-10-2023 Chronic Cardiac dysrhythmias (20 sources) Atrial fibrillation; 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: [Unspecified atrial fibrillation] Onset: 08-14-2018 08-17-2018 Chronic Diabetes mellitus with complications (19 sources) Hyperglycemia due to type 2 diabetes mellitus; 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: [Type 2 diabetes mellitus with hyperglycemia] Onset: 08-10-2023 08-10-2023 Chronic Diabetes mellitus without complication (4 sources) Prediabetes; 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: [PREDIABETES] Onset: 02-16-2022 Episodic Esophageal disorders (17 sources) Gastroesophageal reflux disease without esophagitis; 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: [Gastro-esophageal reflux disease without esophagitis] Onset: 08-10-2023 08-10-2023 Chronic Essential hypertension (20 sources) Essential (primary) hypertension; 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: [Essential hypertension] Onset: 10-12-2021 03-08-2023 Chronic Mycoses (4 sources) Onychomycosis due to dermatophyte ; 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: [Tinea unguium] 02-02-2024 Episodic Nutritional deficiencies (16 sources) Vitamin D deficiency, unspecified; 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: [Vitamin D deficiency] Onset: 08-20-2021 08-10-2023 Chronic Other aftercare (3 sources) Long-term current use of anticoagulant; 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: [buttermaker helper (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] Onset: 09-01-2021 Episodic [...] toe(s)] 02-02-2024 Episodic Other connective tissue disease (5 sources) Plantar fasciitis of right foot; 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: [Plantar fascial fibromatosis] Onset: 08-07-2024 08-07-2024 Episodic Other nervous system disorders (2 sources) Difficulty walking; 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: [Difficulty in walking, not elsewhere classified] 02-02-2024 Chronic Other nutritional; endocrine; and metabolic disorders (14 sources) Body mass index 30+ - obesity; 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: [Obesity, unspecified] Onset: 08-10-2023 09-03-2020 Chronic Other nutritional; endocrine; and metabolic disorders (3 sources) Obesity caused by energy imbalance; 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: [Class 1 obesity due to excess calories with serious comorbidity and body mass index (BMI) of 34.0 to 34.9 in adult] Onset: 08-10-2023 08-07-2024 Chronic Other skin disorders (2 sources) Dystrophia unguium; 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: [Nail dystrophy] 02-02-2024 Episodic Residual codes; unclassified (20 sources) Sleep apnea; 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: [Sleep apnea, unspecified] Onset: 08-14-2018 08-17-2018 Chronic Residual codes; unclassified (18 sources) Obstructive sleep apnea syndrome; 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: [Obstructive [...] Da te Episodic/Chronic Other aftercare (1 source) 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 helper (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; 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: [SENIOR CARE CURRNT USE ANTICOAGULANTS] Onset: 10-12-2021 Episodic Other aftercare (15 sources) Long-term current use of drug therapy; 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: [Other terminal gauger (current) drug therapy] Onset: 08-10-2023 08-10-2023 Episodic [...] Onset: 10-12-2021 Episodic Other connective tissue disease (15 sources) Cramp in lower limb; 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: [Cramp [...] Test Name Value Interpretation Reference Range Facility ALL CBC WITH AUTO DIFFon BASOPHILS ABSOLUTE AUTO 0.1 [facility] Basophils/100 WBC (Bld) 0.8 % 0.2 - 2.0 % [facility] Eosinophils/100 WBC (Bld) 2.7 % 0.9 - 7.0 % [facility] Erythrocyte distribution width (RBC) [Ratio] 13.4 % 11.0 - 15.0 % [facility] Hematocrit (Bld) [Volume fraction] 45.1 % 42.0 - 54.0 % [facility] Hemoglobin (Bld) [Mass/Vol] 14.8 g/dL 14.0 - 18.0 g/dL [facility] IMMATURE GRANULOCYTES ABS AUTO 0.02 [facility] Immature granulocytes/100 WBC (Bld) 0.3 % 0.0 - 0.5 % [facility] Interpretation and review of laboratory results Abnormal [facility] LYMPHOCYTES ABSOLUTE AUTO 1.8 [facility] Lymphocytes/100 WBC (Bld) 28 % 20.5 - 60.0 % [facility] MCH (RBC) [Entitic mass] 27.7 pg 25.9 - 34.0 pg [facility] MCHC (RBC) [Mass/Vol] 32.8 g/dL 29.9 - 35.2 g/dL [facility] MCV (RBC) [Entitic vol] 84.3 fL 80.0 - 94.0 fL [facility] MONOCYTES ABSOLUTE AUTO 0.6 [facility] Monocytes/100 WBC (Bld) 8.8 % 1.7 - 12.0 % [facility] NEUTROPHILS ABSOLUTE AUTO 3.9 [facility] Neutrophils/100 WBC (Bld) 59.4 % 43.0 - 75.0 % [facility] Platelet mean volume (Bld) [Entitic vol] 9.2 fL Low 9.5 - 13.5 fL [facility] EO # 0.2 [facility] TB PLT 182 [facility] RBC 5.35 [facility] WBC 6.6 [facility] Follow-Upon 05-30-2024 Follow-Up [id number] Abbey Robert 1960 M Date Provider Department Center 05/30/2024 [id number]-BLAYNE GUERIN [facility] SLEEP [facility] Family History Problem Relation Age of Onset Heart disease Mother Diabetes Father Hypothyroidism Father Heart disease Father COPD Brother Diabetes Brother Family Status - Relation Status Age at Mother Father Brother Level of Service:37538 NC OFFICE/OUTPATIENT ESTABLISHED LOW MDM 20 MIN Reason for Visit and Comments: Sleep Apnea [348] - 1 year follow up. Machine is working well and sleeping great. [facility] Stacie 05-21-2024 CNPN Telephone (CARDMN) ABBEY ROBERT ([id number]) 1960 M Date Time Provider Department 05/21/24 JESSICA WINTERAR During your visit today, we recorded the following information about you: Tiffanie Sutton 05/21/2024 2:36 PM Signed May 21, 2024 Patient Contact Number: [phone] (home) [phone] (cell) Patient last seen within the last year No Reason For Call: Other Issue: Patients is calling. They will be traveling to [place] and was wondering if making such a long travel that Mr. Robert should wear compression socks. Please call to advise. Haroon Atkins, RONALD 05/21/2024 3:24 PM Signed Returned call to [...] Fully Assessed Reason for Visit: Patient Question [0647] Prescriptions as of 05/21/2024 - metoprolol succinate [...] Status:Closed by HAROON BARBER on 05/21/24 Normal [facility] HEMOGLOBIN A1Con 024 Glucose [Mass/Vol] 166 mg/dL [facility] HbA1c (Bld) [Mass fraction] 7.4 % High 4.5 - 6.2 % [facility] Comment on above: ADA RECOMMENDED LIMI T 4.0 - 6.0 ADA THERAPEUTIC TARGET < 7.0 ACTION SUGGESTED > 7.0 Interpretation and review of laboratory results Abnormal [facility] Reminderson 11-17-2022 Reminders - From: Taylor Bonner LPN To: N - Clinical; Sent: 11/17/2022 09:49:20 EDT Show up: 09/21/2027 07:00:00 EDT Subject: colonoscopy recall Due Date/Time: 10/21/2027 07:00:00 EDT Reminder/Recall Patient due for surveillance colonoscopy 10/21/2027. Normal [facility] Pathology Noteon 10-25-2022 Pathology Note [id number]#1 .00CD:127 Normal [facility] Outside Colonoscopyon 2022 Outside Colonoscopy [id number] .00CD:127 Normal [facility] Pre-Certification Formon Pre-Certification Form [id number]# 1.00CD:127 [facility] Consent for Procedure/Surger yon 09-23-2022 Consent for Procedure/Surgery [id number]#1. 00CD:127 [facility] Ambulatory Visit Summaryon 0 09-22-2022 Ambulatory Visit Summary ABBEY ROBERT :1960 Visit Date:09/22/2022 Ambulatory Visit Instructions Your Care Team Attending Physician - BRIGETTE KNOWLES, Terrence Mckeon Primary Care Physician - MICHAEL SPANGLER MD This Is Your Medications List Contact prescribing [...] of colon Tubulovillous adenoma of colon Normal [facility] GLYCOHEMOGLOBIN A1Con 2021 ADA RECOMMENDATION SEE BELOW Normal [facility] Comment on above: Result Comment: ADA RECOMMENDED LIMIT 4.0 - 6.0 ADA THERAPEUTIC TARGET < 7.0 ACTION SUGGESTED > 7.0 Performed By: #### A 1C #### [facility] [address] [address] [address] Neelima Bansal Glucose [Mass/Vol] 186 mg/dL Normal [facility] Comment on above: Performed By: #### A 1C #### [facility] [address] [address] [address] Neelima Bansal HbA1c (Bld) [Mass fraction] 8.1 % Critically high 4.5-6.2 [facility] Comment on above: Performed By: #### A 1C #### [facility] [address] [place] [address] Dr. Neelima Bansal XR LSPINE 2_3 VIEWSon [...] EMBER LOPEZ Date: 2021-10-01 21:09 Normal [facility] CBC AUTO DIFFon 08-17-2021 BASO # 0.0 103/ul Normal 0.0-0.1 [facility] Comment on above: Performed By: #### A 1C #### [facility] [address] [place] [address] Dr. Neelima Bansal Basophils/100 WBC (Bld) 0.6 % Normal 0.2-2.0 [facility] Comment on above: Performed By: #### A 1C #### [facility] [address] [place] [address] Dr. Neelima Bansal EO # 0.2 103/ul Normal 0.0-0.7 [facility] Comment on above: Performed By: #### A 1C #### [facility] [address] [place] [address] Dr. Neelima Bansal Eosinophils/100 WBC (Bld) 2.3 % Normal 0.9-7.0 [facility] Comment on above: Performed By: #### A 1C #### [facility] [address] [place] [address] Dr. Neelima Bansal Erythrocyte distribution width (RBC) [Ratio] 13.6 % Normal 11.0-15.0 [facility] Comment on above: Performed By: #### A 1C #### [facility] [address] [place] [address] Dr. Neelima Bansal Hematocrit (Bld) [Volume fraction] 44.6 % Normal 42.0-54.0 [facility] Comment on above: Performed By: #### A 1C #### [facility] [address] [place] [address] Dr. Neelima Bansal Hemoglobin (Bld) [Mass/Vol] 14.6 g/dL Normal 14.0-18.0 [facility] Comment on above: Performed By: #### A 1C #### [facility] [address] [place] [address] Dr. Neelima Bansal IG # 0.01 10e3/ul Normal 0.00-0.03 [facility] Comment on above: Performed By: #### A 1C #### [facility] [address] [place] [address] Dr. Neelima Bansal IG % 0.2 % Normal 0.0-0.5 [facility] Comment on above: Performed By: #### A 1C #### [facility] [address] [place] [address] Dr. Neelima Bansal LYMPH # 1.7 103/ul Normal 1.2-3.8 [facility] Comment on above: Performed By: #### A 1C #### [facility] [address] [place] [address] Dr. Neelima Bansal Lymphocytes/100 WBC (Bld) 26.9 % Normal 20.5-60.0 [facility] Comment on above: Performed By: #### A 1C #### [facility] [address] [place] [address] Dr. Neelima Bansal MANUAL DIFF REQ NO Normal [facility] Comment on above: Performed By: #### A 1C #### [facility] [address] [place] [address] Dr. Neelima Bansal MCH (RBC) [Entitic mass] 28.2 pg Normal 25.9-34.0 [facility] Comment on above: Performed By: #### A 1C #### [facility] [address] [place] [address] Dr. Neelima Bansal MCHC (RBC) [Mass/Vol] 32.7 g/dL Normal 29.9-35.2 [facility] Comment on above: Performed By: #### A 1C #### [facility] [address] [place] [address] Dr. Neelima Bansal MCV (RBC) [Entitic vol] 86.1 fL Normal 80.0-94.0 [facility] Comment on above: Performed By: #### A 1C #### [facility] [address] [place] [address] Dr. Neelima Bansal MONO # 0.6 103/ul Normal 0.3-0.8 [facility] Comment on above: Performed By: #### A 1C #### [facility] [address] [place] [address] Dr. Neelima Bansal Monocytes/100 WBC (Bld) 9.8 % Normal 1.7-12.0 [facility] Comment on above: Performed By: #### A 1C #### [facility] [address] [place] [address] Dr. Neelima Bansal NEUT # 3.9 103/ul Normal 1.4-6.5 [facility] Comment on above: Performed By: #### A 1C #### [facility] [address] [address] [address] Neelima Bansal Neutrophils/100 WBC (Bld) 60.2 % Normal 43.0-75.0 [facility] Comment on above: Performed By: #### A 1C #### [facility] [address] [address] [address] Neelima Bansal Platelet mean volume (Bld) [Entitic vol] 9.4 fL Critically low 9.5-13.5 [facility] Comment on above: Performed By: #### A 1C #### [facility] [address] [address] [address] Neelima Bansal PLT 198 103/ul Normal 150-450 [facility] Comment on above: Performed By: #### A 1C #### [facility] [address] [place] [address] Dr. Neelima Bansal RBC 5.18 106/ul Normal 4.70-6.10 [facility] Comment on above: Performed By: #### A 1C #### [facility] [address] [address] [address] Neelima Bansal WBC 6.4 103/ul Normal 4.0-11.0 [facility] Comment on above: Performed By: #### A 1C #### [facility] [address] [place] [address] Dr. Neelima Bansal GLYCOHEMOGLOBIN A1Con 2021 ADA RECOMMENDATION SEE BELOW Normal [facility] Comment on above: Result Comment: ADA RECOMMENDED LIMIT 4.0 - 6.0 ADA THERAPEUTIC TARGET < 7.0 ACTION SUGGESTED > 7.0 Performed By: #### A 1C #### [facility] [address] [place] [address] Dr. Neelima Bansal Glucose [Mass/Vol] 146 mg/dL Normal [facility] Comment on above: Performed By: #### A 1C #### [facility] [address] [place] [address] Dr. Neelima Bansal HbA1c (Bld) [Mass fraction] 6.7 % Critically high 4.5-6.2 [facility] Comment on above: Performed By: #### A 1C #### [facility] [address] [address] [address] Neelima Bansal LIPID PROFILEon 08-17-2021 CHOL-HDL RATIO NORM SEE BELOW Normal [facility] Comment on above: Result Comment: 3.3 - 4.4 LOW RISK 4.4 - 7.1 AVERAGE RISK 7.1 - 11.0 MODERATE RISK >11.0 HIGH RISK Performed By: #### L IVER, LIPID, BMP, TSH #### [facility] [address] [address] [address] Neelima Bansal Cholesterol [Mass/Vol] 161 mg/dL Normal <=200 [facility] Comment on above: Performed By: #### L IVER, LIPID, BMP, TSH #### [facility] [address] [address] [address] Neelima Bansal Cholesterol in HDL [Mass/Vol] 29 mg/dL Critically low 40-60 [facility] Comment on above: Performed By: #### L IVER, LIPID, BMP, TSH #### [facility] [address] [address] [address] Neelima Bansal Cholesterol in LDL [Mass/Vol] 98.8 mg/dL Normal [facility] Comment on above: Performed By: #### L IVER, LIPID, BMP, TSH #### [facility] [address] [address] [address] Neelima Bansal Cholesterol.total/Ch olesterol in HDL [Mass ratio] 5.6 {ratio} Normal [facility] Comment on above: Performed By: #### L IVER, LIPID, BMP, TSH #### [facility] [address] [address] [address] Neelima Bansal HDL NORMAL > or = 60 mg/dl - LO W CARDIOVASCULAR RISK <40 mg/dl - HIGH CARDIOVASCULAR RISK Normal [facility] Comment on above: Performed By: #### L IVER, LIPID, BMP, TSH #### [facility] [address] [address] [address] Neelima Bansal LDL CALC NORMAL SEE BELOW Normal [facility] Comment on above: Result Comment: <100 mg/dl OPTIMAL 100 - 129 mg/dl NEAR OR ABOVE OPTIMAL 130 - 159 mg/dl BORDERLINE HIGH 160 - 189 mg/dl HIGH >190 mg/dl VERY HIGH Performed By: #### L IVER, LIPID, BMP, TSH #### [facility] [address] [address] [address] Neelima Bansal Triglyceride [Mass/Vol] 166 mg/dL Critically high <=150 [facility] Comment on above: Performed By: #### L IVER, LIPID, BMP, TSH #### [facility] [address] [address] [address] Neelima Bansal VLDL CALC 33.2 mg/dL Normal [facility] Comment on above: Performed By: #### L IVER, LIPID, BMP, TSH #### [facility] [address] [address] [address] Neelima Bansal LIVER PROFILEon 08-17-2021 Albumin [Mass/Vol] 3.7 g/dL Normal 3.4-5.0 [facility] Comment on above: Performed By: #### L IVER, LIPID, BMP, TSH #### [facility] [address] [address] [address] Neelima Bansal Albumin/Globulin [Mass ratio] 1.1 {ratio} Normal [facility] Comment on above: Performed By: #### L IVER, LIPID, BMP, TSH #### [facility] [address] [address] [address] Neelima Bansal ALP [Catalytic activity/Vol] 42 U/L Critically low 46-116 [facility] Comment on above: Performed By: #### L IVER, LIPID, BMP, TSH #### [facility] [address] [address] [address] Neelima Bansal ALT [Catalytic activity/Vol] 58 U/L Normal 16-63 [facility] Comment on above: Performed By: #### L IVER, LIPID, BMP, TSH #### [facility] [address] [address] [address] Neelima Bansal AST [Catalytic activity/Vol] 24 U/L Normal 15-37 [facility] Comment on above: Performed By: #### L IVER, LIPID, BMP, TSH #### [facility] [address] [place] [address] Dr. Neelima Bansal BILI, CONJUGATED 0.1 mg/dL Normal 0.0-0.2 [facility] Comment on above: Performed By: #### L IVER, LIPID, BMP, TSH #### [facility] [address] [place] [address] Dr. Neelima Bansal Bilirubin [Mass/Vol] 0.4 mg/dL Normal 0.2-1.0 [facility] Comment on above: Performed By: #### L IVER, LIPID, BMP, TSH #### [facility] [address] [place] [address] Dr. Neelima Bansal Globulin (S) [Mass/Vol] 3.4 g/dL Normal [facility] Comment on above: Performed By: #### L IVER, LIPID, BMP, TSH #### [facility] [address] [place] [address] Dr. Neelima Bansal Protein [Mass/Vol] 7.1 g/dL Normal 6.4-8.2 [facility] Comment on above: Performed By: #### L IVER, LIPID, BMP, TSH #### [facility] [address] [place] [address] Dr. Neelima Bansal PROF CHEM 8 (BAS METB)on Anion gap [Moles/Vol] 10.8 mmol/L Normal [facility] Comment on above: Performed By: #### L IVER, LIPID, BMP, TSH #### [facility] [address] [place] [address] Dr. Neelima Bansal Calcium [Mass/Vol] 8.5 mg/dL Normal 8.5-10.1 [facility] Comment on above: Performed By: #### L IVER, LIPID, BMP, TSH #### [facility] [address] [place] [address] Dr. Neelima Bansal Chloride [Moles/Vol] 104 mmol/L Normal 98-107 [facility] Comment on above: Performed By: #### L IVER, LIPID, BMP, TSH #### [facility] [address] [address] [address] Neelima Bansal CO2 [Moles/Vol] 29.4 mmol/L Normal 21.0-32.0 [facility] Comment on above: Performed By: #### L IVER, LIPID, BMP, TSH #### [facility] [address] [address] [address] Neelima Bansal Creatinine [Mass/Vol] 1.01 mg/dL Normal 0.70-1.30 [facility] Comment on above: Performed By: #### L IVER, LIPID, BMP, TSH #### [facility] [address] [address] [address] Neelima Bansal EGFR-AF UGANDAN >60 Normal >=60 [facility] Comment on above: Performed By: #### L IVER, LIPID, BMP, TSH #### [facility] [address] [address] [address] Neelima Bansal EGFR-NON AF UGANDAN >60 Normal >=60 [facility] Comment on above: Performed By: #### L IVER, LIPID, BMP, TSH #### [facility] [address] [address] [address] Neelima Bansal Glucose [Mass/Vol] 136 mg/dL Critically high 74-[address] [facility] Comment on above: Performed By: #### L IVER, LIPID, BMP, TSH #### [facility] [address] [address] [address] Neelima Bansal Potassium [Moles/Vol] 4.2 mmol/L Normal 3.5-5.1 [facility] Comment on above: Performed By: #### L IVER, LIPID, BMP, TSH #### [facility] [address] [address] [address] Neelima Bansal Sodium [Moles/Vol] 140 mmol/L Normal 136-145 [facility] Comment on above: Performed By: #### L IVER, LIPID, BMP, TSH #### [facility] [address] [address] [address] Neelima Bansal Urea nitrogen [Mass/Vol] 21.0 mg/dL Critically high 7.0-18.0 [facility] Comment on above: Performed By: #### L IVER, LIPID, BMP, TSH #### [facility] [address] [place] [address] Dr. Neelima Bansal Urea nitrogen/Creatinine [Mass ratio] 20.8 mg/mg Normal [facility] Comment on above: Performed By: #### L IVER, LIPID, BMP, TSH #### [facility] [address] [place] [address] Dr. Neelima Bansal TSHon 08-17-2021 TSH 2.401 uIU/mL Normal 0.358-3.740 [facility] Comment on above: Performed By: #### L IVER, LIPID, BMP, TSH #### [facility] [address] [place] [address] Dr. Neelima Bansal TSH RANGE SEE BELOW Normal [facility] Comment on above: Result Comment: <0.3 4 UIU/ml HYPERTHYROID 0.34-5.60 UIU/ml EUTHYROID >5.60 UIU/ml HYPOTHYROID Performed By: #### L IVER, LIPID, BMP, TSH #### [facility] [address] [place] [address] Dr. Neelima Bansal VITAMIN D 25 OHon 08-17-2021 VIT D 25-OH 54.0 ng/mL Normal [facility] Comment on above: Performed By: #### P SASC, VITAD #### [facility] [address] [place] [address] Dr. Neelima Bansal VIT D RANGES SEE BELOW Normal [facility] Comment on above: Result Comment: <20 ng/mL Vit D deficient 20 - <30 ng/mL Vit D insufficient 30 - 100 ng/mL Vit D sufficient >100 ng/mL Potential Toxicity Performed By: #### P SASC, VITAD #### [facility] [address] [place] [address] Dr. Neelima Bansal Cardiovascular Lab Reporton 06-22-2018 Cardiovascular Lab Report [place] Patient Name: [facility] [place] MR #: [id number] Department of Physician: Imtiaz Stefan Haq M.D. Division of Service Date: 06/21/2018 Cardiology Birthdate: 1960 Adult Cardiovascular Room #: [address] [address] [address] [address] Cardiovascular Laboratory Report PROCEDURES: Transesophageal echocardiogram and cardioversion. INDICATION: Atrial fibrillation. FELLOW: Dr. Sanchez. PROCEDURE IN DETAIL: An informed consent was obtained from the patient after explaining indication, risks, benefits, and alternatives. The patient understood and agreed and signed the consent form. The patient was brought to the laborer [facility] and RYANN was performed under conscious sedation. [...] Sanchez MD Date Trans: 06/22/2018 03:57 A/lisa [id number] cc: Michael Spangler M.D. [address] [place] [address] Normal [facility] Vital Signs Date Time Vital Sign Value Performing Clinician Facility 08-07-2024 15:00-0400 Body height 180.3 cm Michael Spangler MD Work Phone: [facility] 08-07-2024 15:00-0400 Body mass index (BMI) [Ratio] 34.73 kg/m2 Michael Spangler MD Work Phone: [facility] 08-07-2024 15:00-0400 Body temperature 97.5 [degF] Michael Spangler MD Work Phone: [facility] 08-07-2024 15:00-0400 Body weight 112.95 kg Michael Spangler MD Work Phone: [facility] 08-07-2024 15:00-0400 Diastolic blood pressure 58 mm[Hg] Michael Spangler MD Work Phone: [facility] 08-07-2024 15:00-0400 Heart rate 71 /min Michael Spangler MD Work Phone: [facility] 08-07-2024 15:00-0400 Respiratory rate 18 /min Michael Spangler MD Work Phone: [facility] 08-07-2024 15:00-0400 SaO2% (BldA) [Mass fraction] 95 % Michael Spangler MD Work Phone: [facility] 08-07-2024 15:00-0400 Systolic blood pressure 126 mm[Hg] Michael Spangler MD Work Phone: [facility] 02-13-2024 08:27-0500 Body height 180.3 cm Radha Bonilla DPM Work Phone: [facility] 02-13-2024 08:27-0500 Body mass index (BMI) [Ratio] 35.15 kg/m2 Radha Bonilla DPM Work Phone: [facility] 02-13-2024 08:27-0500 Body weight 114.31 kg Radha Bonilla DPM Work Phone: [facility] 02-08-2024 10:46-0500 Body height 180.3 cm Michael Spangler MD Work Phone: [facility] 02-08-2024 10:46-0500 Body mass index (BMI) [Ratio] 35.15 kg/m2 Michael Spangler MD Work Phone: [facility] 02-08-2024 10:46-0500 Body temperature 97.11 [degF] Michael Spangler MD Work Phone: [facility] 02-08-2024 10:46-0500 Body weight 114.31 kg Michael Spangler MD Work Phone: [facility] 02-08-2024 10:46-0500 Diastolic blood pressure 66 mm[Hg] Michael Spangler MD Work Phone: [facility] 02-08-2024 10:46-0500 Heart rate 74 /min Michael Spangler MD Work Phone: [facility] 02-08-2024 10:46-0500 Respiratory rate 18 /min Micahel Spangler MD Work Phone: [facility] 02-08-2024 10:46-0500 SaO2% (BldA) [Mass fraction] 92 % Michael Spangler MD Work Phone: [facility] 02-08-2024 10:46-0500 Systolic blood pressure 130 mm[Hg] Michael Spangler MD Work Phone: [facility] 02-02-2024 15:15-0400 Body height 180.3 cm Radha Bonilla DPM Work Phone: [facility] 02-02-2024 15:15-0400 Body mass index (BMI) [Ratio] 34.87 kg/m2 Radha Bonilla DPM Work Phone: [facility] 02-02-2024 15:15-0400 Body weight 113.4 kg Radha Bonilla DPM Work Phone: [facility] 03-08-2023 10:47-0500 Body height 180.3 cm Jessica Winter MD Work Phone: [facility] 03-08-2023 10:47-0500 Body weight 110.68 kg Jessica Winter MD Work Phone: [facility] 03-08-2023 10:47-0500 Diastolic blood pressure 66 mm[Hg] Jessica Winter MD Work Phone: [facility] 03-08-2023 10:47-0500 Heart rate 70 /min Jessica Winter MD Work Phone: [facility] 03-08-2023 10:47-0500 Systolic blood pressure 136 mm[Hg] Jessica Winter MD Work Phone: [facility] 09-24-2021 15:23-0400 Body height 180.3 cm Jessica Winter MD Work Phone: [facility] 09-24-2021 15:23-0400 Body weight 113.4 kg Jessica Winter MD Work Phone: [facility] 09-24-2021 15:23-0400 Diastolic blood pressure 77 mm[Hg] Jessica Winter MD Work Phone: [facility] 09-24-2021 15:23-0400 Heart rate 60 /min Jessica Winter MD Work Phone: [facility] 09-24-2021 15:23-0400 Systolic blood pressure 143 mm[Hg] Jessica Winter MD Work Phone: [facility] 09-01-2021 14:02-0400 Blood Pressure Location Terrence [facility] [place] 09-01-2021 14:02-0400 Diastolic blood pressure 80 mm[Hg] [facility] [place] 09-01-2021 14:02-0400 Heart rate 68 /min Terrence CAPPS [facility] [place] 09-01-2021 14:02-0400 Respiratory rate 16 /min Terrence CAPPS [facility] [place] 09-01-2021 14:02-0400 Systolic blood pressure 132 mm[Hg] Terrence CAPPS [facility] [place] 06-23-2021 10:36-0400 Body height 180.3 cm Jessica Winter MD Work Phone: [facility] 06-23-2021 10:36-0400 Body weight 115.67 kg Jessica Winter MD Work Phone: [facility] 06-23-2021 10:36-0400 Diastolic blood pressure 76 mm[Hg] Jessica Winter MD Work Phone: [facility] 06-23-2021 10:36-0400 Heart rate 56 /min Jessica Winter MD Work Phone: [facility] 06-23-2021 10:36-0400 Systolic blood pressure 128 mm[Hg] Jessica Winter MD Work Phone: [facility] Encounters Encounter Date Encounter Type Care Provider Facility Start: 09-03-2024 End: 09-03-2024 Refill Jessica Winter MD Work Phone: Cardiology Comment on above: Refill Request (Eliq uis) Persistent atrial fi brillation (HCC) (Primary Dx) Start: 09-01-2024 End: 09-01-2024 Clinisync Result Encounter Michael Spangler MD Work Phone: [facility] External Department Unsolicited Start: 09-01-2024 End: 09-01-2024 Clinisync Result Encounter Michael Spangler MD Work Phone: [facility] External Department Unsolicited Start: 09-01-2024 End: 09-03-2024 Refill Jessica Winter MD Work Phone: Cardiology Comment on above: Refill Request Start: 08-07-2024 End: 08-07-2024 ambulatory MICHAEL SPANGLER Not Available Start: 08-07-2024 End: 08-07-2024 Office outpatient visit 25 minutes Michael Spangler MD Work Phone: [facility] [employer] Comment on above: Type 2 diabetes nolan itus with hyperglycemia, without long-term current use of insulin (CMS/HCC) (Primary Dx); Essential hypertension, benign (CMS/HCC); AF (paroxysmal atrial fibrillation) (CMS/HCC); REAL on CPAP; Plantar fasciitis of right foot; Annual physical exam Start: 08-07-2024 End: 08-07-2024 Patient encounter procedure Michael Spangler MD Work Phone: [facility] Start: 08-07-2024 End: 08-07-2024 Bamboo flowsheet Michael Spangler MD Work Phone: [facility] Start: 08-07-2024 End: 08-07-2024 Bamboo flowsheet Michael Spangler MD Work Phone: [facility] Start: 05-30-2024 End: 05-30-2024 ambulatory [facility] Start: 05-21-2024 End: 05-21-2024 Telephone encounter Jessica Winter MD Work Phone: Cardiology Comment on above: Patient Question Start: 02-13-2024 End: 02-13-2024 Bamboo flowsheet Radha Bonilla DPM Work Phone: [facility] Start: 02-13-2024 End: 02-13-2024 Bamboo flowsheet Radha Bonilla DPM Work Phone: [facility] Start: 02-13-2024 End: 02-13-2024 Clinisync Result Encounter Michael Spangler MD Work Phone: [facility] External Department Unsolicited Start: 02-13-2024 End: 02-13-2024 Postop follow up visit related to original px Radha Bonilla DPM Work Phone: [facility] Comment on above: Postoperative visit (Primary Dx); Dermatophytosis of nail Start: 02-13-2024 End: 02-13-2024 ambulatory RADHA BONILLA Not Available Start: 02-10-2024 End: 02-10-2024 Bamboo flowsheet Radha Bonilla DPM Work Phone: [facility] Start: 02-10-2024 End: 02-10-2024 Bamboo flowsheet Radha Bonilla DPM Work Phone: [facility] Start: 02-08-2024 End: 02-08-2024 Bamboo flowsheet Michael Spangler MD Work Phone: [facility] Start: 02-08-2024 End: 02-08-2024 Bamboo flowsheet Michael Spangler MD Work Phone: [facility] Start: 02-08-2024 End: 02-08-2024 ambulatory MICHAEL SPANGLER Not Available Start: 02-08-2024 End: 02-08-2024 Office outpatient visit 25 minutes Michael Spangler MD Work Phone: [facility] Comment on above: Type 2 diabetes nolan itus with hyperglycemia, without long-term current use of insulin (CMS/HCC) (Primary Dx); Essential hypertension, benign (CMS/HCC); AF (paroxysmal atrial fibrillation) (CMS/HCC); Gastroesophageal reflux disease without esophagitis Start: 02-02-2024 End: 02-02-2024 Patient encounter procedure Radha Bonilla DPM Work Phone: [facility] Comment on above: Dermatophytosis of n ail (Primary Dx); Dystrophic nail; Pain of left great toe; Difficulty walking Start: 02-02-2024 End: 02-02-2024 ambulatory RADHA BONILLA Not Available Start: 02-01-2024 End: 02-01-2024 Bamboo flowsheet Radha Bonilla DPM Work Phone: [facility] Start: 02-01-2024 End: 02-01-2024 Bamboo flowsheet Radha Bonilla DPM Work Phone: [facility] Start: 01-05-2024 End: 01-09-2024 Refill Jessica Winter MD Work Phone: Cardiology Comment on above: Refill Request Start: 10-27-2023 End: 10-27-2023 ambulatory RADHA Colt RUSHER Not Available Start: 09-22-2023 End: 09-22-2023 ambulatory RADHA A RUSHER Not Available Start: 09-08-2023 End: 09-08-2023 ambulatory RADHA A RUSHER Not Available Start: 08-22-2023 End: 08-22-2023 ambulatory RADHA A RUSHER Not Available Start: 08-06-2023 Refill Pravin [...] Start: 11-17-2022 ambulatory [facility]IGETTE [facility] Start: 10-20-2022 End: 10-21-2022 ambulatory Terrence R NILL Facility:CD:[id number] Start: 09-22-2022 End: 09-23-2022 ambulatory Terrence R NILL Facility:[facility] Start: 03-11-2022 End: 03-11-2022 Nursing evaluation of [...] Nill/Said Hi Start: 10-12-2021 End: 11-03-2021 ambulatory KLEIN Selwyn PIKEKATY Facility:[facility] Start: 10-07-2021 End: 10-07-[address] TERRENCE CAPPS Facility:[facility] Start: 10-01-2021 End: 10-02-2021 ambulatory [facility] Start: 09-30-2021 Orders Only Jessica Salazar [...] Patient encounter procedure Terrence CAPPS General Surgery Brigette/Lio Do Start: 08-27-2021 ambulatory Jessica Salazar i, MD Work Phone: Cardiology Comment on above: Any treatment adjust ment Start: 08-20-2021 Encounter for genera l adult medical examination without abnormal findings DR MICHAEL SPANGLER [facility] Start: 08-17-2021 End: 08-18-[address] MICHAEL SPANGLER Facility:[facility] Start: 08-17-2021 End: 08-18-2021 Encounter for general adult medical examination without abnormal findings DR MICHAEL SPANGLER Facility:[facility] Start: 07-03-2021 Telephone encounter Jessica Winter MD Work Phone: Cardiology Comment on above: Medication Problem ( Prior auth denial ) Start: 07-01-2021 Telephone encounter Jessica Winter MD Work Phone: Cardiology Comment on above: Prior Auth from [facility] Start: 06-24-2021 Orders Only Jessica Salazar i, MD Work Phone: Cardiology Comment on above: Persistent atrial fi brillation (HCC) (Primary Dx); IRB [id number] MAP AF PI: Dr. Shannon Dozier Start: [...] 03-18-2021 Patient entered into trial [facility] Start: 06-21-2018 End: 06-22-2018 Patient encounter procedure PROVIDER UNKNOWN Facility:[facility] Procedures Date Procedure Procedure Detail Performing Clinician Start: 09-01-2024 ALL CBC WITH AUTO DIFF Michael Spangler MD Work Phone: Start: 02-13-2024 MLR HEMOGLOBIN A1C Michael Spangler MD Work Phone: Start: 10-20-2022 Colonoscopy Radha WONGM Work Phone: Start: 10-07-2021 Sigmoidoscopy Terrence RANDLE Start: 08-17-2021 PSA screening [facility] Comment on above: Performed By: #### P SASC, VITAD #### [facility] [address] [address] [address] Neelima Bansal Start: 09-02-2020 Colonoscopy Terrence NGUYỄN Cardioversion Terrence CAPPS Catheter ablation of tissue of heart Terrence CAPPS Tonsillectomy Terrence CAPPS Plan of Treatment Date Care Activity Detail Author Start: 2036 RSV Vaccine (1 - 1-d ose 75+ series) RSV Vaccine (1 - 1-dose 75+ series) [facility] Start: 10-20-2032 Screening for malign ant neoplasm of colon [facility] Start: 08-17-2026 PROSTATE CANCER SCRE ENING DISCUSSION PROSTATE CANCER SCREENING DISCUSSION [facility] Start: 08-17-2026 Prostate specific an tigen measurement Prostate Cancer Screening Discussion [facility] Start: 03-07-2025 End: 03-07-2025 Patient encounter procedure 03/07/2025 10:00 AM EST Office Visit Cardiology [address] [id number] Jessica Winter MD [address] [place] [address] Dx. PERSISTANT AFIB Cardiology Comment on above: Dx. PERSISTANT AFIB Start: 03-07-2025 End: 03-07-2025 ambulatory 03/07/2025 9:00 AM EST Procedure Cardiology [address] [place] [address] Dx. PERSISTANT AFIB Cardiology Comment on above: Dx. PERSISTANT AFIB Start: 02-08-2025 End: 02-08-2025 Patient encounter procedure 02/08/2025 9:00 AM EST Office Visit [facility] [address] [place] [phone] Michael Spangler MD [address] [place] [phone] [facility] Start: 12-03-2024 Influenza vaccination Influenz a Vaccine (Season Ended) [facility] Start: 08-26-2024 Urine screening for protein Diabetes: Urine Protein Screening [facility] Start: 08-12-2024 Hemoglobin A1c measurement Mariana betes: Hemoglobin A1C [facility] Start: 08-07-2024 End: 08-07-2024 Patient encounter procedure 08/07/2024 2:45 PM EDT Office Visit [facility] [address] [place] [address] Michael Spangler MD [address] [place] [phone] [facility] Start: 08-07-2024 End: 08-07-2025 Basic metabolic 1998 panel - Serum or Plasma Basic metabolic panel Lab Routine Annual physical exam Expected: 08/07/2024 (Approximate), Expires: 08/07/2025 [facility] Comment on above: Expected: 08/07/2024 (Approximate), Expires: 08/07/2025 Start: 08-07-2024 End: 08-07-2025 CBC W Auto Differential panel - Blood CBC and differential Lab Routine Annual physical exam Expected: 08/07/2024 (Approximate), Expires: 08/07/2025 [facility] Comment on above: Expected: 08/07/2024 (Approximate), Expires: 08/07/2025 Start: 08-07-2024 End: 08-07-2025 Hemoglobin A1c/Hemoglobin.total in Blood Hemoglobin A1c Lab Routine Annual physical exam Expected: 08/07/2024 (Approximate), Expires: 08/07/2025 [facility] Comment on above: Expected: 08/07/2024 (Approximate), Expires: 08/07/2025 Start: 08-07-2024 End: 08-07-2025 Hepatic function 2000 panel - Serum or Plasma Hepatic function panel Lab Routine Annual physical exam Expected: 08/07/2024 (Approximate), Expires: 08/07/2025 [facility] Comment on above: Expected: 08/07/2024 (Approximate), Expires: 08/07/2025 Start: 08-07-2024 End: 08-07-2025 Lipid 1996 panel - Serum or Plasma Lipid panel Lab Routine Annual physical exam Expected: 08/07/2024 (Approximate), Expires: 08/07/2025 [facility] Comment on above: Expected: 08/07/2024 (Approximate), Expires: 08/07/2025 Start: 08-07-2024 End: 08-07-2025 Microalbumin/Creatinine panel in random Urine Microalbumin / creatinine, urine ratio Lab Routine Type 2 diabetes mellitus with hyperglycemia, without long-term current use of insulin ([facility]) Expected: 08/07/2024 (Approximate), Expires: 08/07/2025 [facility] Work Phone: Comment on above: Expected: 08/07/2024 (Approximate), Expires: 08/07/2025 Start: 08-07-2024 End: 08-07-2025 Prostate specific Ag [Mass/volume] in Serum or Plasma PSA Lab Routine Annual physical exam Expected: 08/07/2024 (Approximate), Expires: 08/07/2025 [facility] Comment on above: Expected: 08/07/2024 (Approximate), Expires: 08/07/2025 Start: 08-07-2024 End: 08-07-2025 Thyrotropin [Units/volume] in Serum or Plasma TSH Lab Routine Annual physical exam Expected: 08/07/2024 (Approximate), Expires: 08/07/2025 [facility] Comment on above: Expected: 08/07/2024 (Approximate), Expires: 08/07/2025 Start: 03-18-2024 DIABETES SCREEN DIABETES SCREEN [facility] Start: 03-18-2024 Diabetes Screening Diabetes Screenin g [facility] Start: 02-27-2024 Hemoglobin A1c measurement Mariana betes: Hemoglobin A1C [facility] Start: 02-13-2024 End: 02-13-2024 Patient encounter procedure [facility] Comment on above: Arrived Start: 02-08-2024 End: 02-07-2025 Hemoglobin A1c/Hemoglobin.total in Blood Hemoglobin A1c Lab Routine Type 2 diabetes mellitus with hyperglycemia, without long-term current use of insulin ([facility]) Expected: 02/08/2024 (Approximate), Expires: 02/07/2025 [facility] Work Phone: Comment on above: Expected: 02/08/2024 (Approximate), Expires: 02/07/2025 Start: 02-08-2024 End: 02-08-2024 Patient encounter procedure 02/08/2024 10:30 AM EST Office Visit [facility] [address] [place] [address] Michael Spangler MD [address] [place] [address] [facility] Start: 02-02-2024 End: 02-02-2024 Patient encounter procedure 02/02/2024 3:30 PM EDT Office Visit [facility] [address] [place] [phone] Radha Bonilla [address] [facility] [place], [place] [phone] [facility] Start: 12-04-2023 Covid-19 Vaccine ( season) Covid-19 Vaccine ( season) [facility] Start: 12-04-2023 Influenza vaccination C [facility] Start: 08-20-2023 Screening for malign ant neoplasm of colon [facility] Start: 04-04-2023 Behavioral Health Screening Behavioral Health Screening [facility] Start: 04-04-2023 Depression Assessment Depression Ass essment [facility] Start: 03-11-2023 BP Controlled (<130/80) BP Controlle d (<130/80) [facility] Start: 12-03-2022 Covid-19 Vaccine () Covid-19 Vaccine () [facility] Start: 12-03-2022 Covid-19 Vaccine () Covid-19 Vaccine () [facility] Start: 12-03-2022 Influenza vaccination Influenza Vacc ine (#1) [facility] Start: 04-04-2022 Depression Assessment Depression Ass essment [facility] Start: 12-03-2021 Influenza vaccination C [facility] Start: 11-19-2021 COVID-19 VACCINE (4 - Booster for Pfizer series) COVID-19 VACCINE (4 - Booster for Pfizer series) [facility] Start: 09-14-2021 COVID-19 VACCINE (4 - Booster for Pfizer series) COVID-19 VACCINE (4 - Booster for Pfizer series) [facility] Start: 2021 RSV Vaccine (1 - 1-d ose 60+ series) RSV Vaccine (1 - 1-dose 60+ series) [facility] Start: 04-04-2021 DEPRESSION ASSESSMENT DEPRESSION ASS ESSMENT [facility] Start: 12-09-2020 COVID-19 VACCINE (3 - Booster for Pfizer series) COVID-19 VACCINE (3 - Booster for Pfizer series) [facility] Start: 12-03-2020 Influenza vaccination INFLUENZA (#1) [facility] Start: 07-06-2020 Urine microalbumin profile [facility] Start: 2016 PROSTATE CANCER SCRE ENING DISCUSSION PROSTATE CANCER SCREENING DISCUSSION [facility] Start: 09-07-2011 Pneumococcal Vaccine : 50+ (1 of 1 - PCV) Pneumococcal Vaccine: 50+ (1 of 1 - PCV) [facility] Start: 09-07-2011 SHINGRIX VACCINE (1 of 2) ROBLES GRIX VACCINE (1 of 2) [facility] Start: 2006 COLOGUARD (FIT-DNA) COLOGUARD (FIT-D NA) [facility] Start: 2006 Colonoscopy COLONOSCOPY [facility] Start: 2006 COLORECTAL CANCER SCREENING COLORECTAL CANCER SCREENING [facility] Start: [address] COLONOGRAPHY [facility] Start: 2006 FECAL OCCULT BLOOD FECAL OCCULT BLOO D [facility] Start: 2006 Screening for malign ant neoplasm of colon [facility] Start: 2006 SIGMOIDOSCOPY SIGMOIDOSCOPY [facility] Start: 1996 Lipid 1996 panel - S tomas or Plasma Lipid Screening [facility] Start: 1996 Lipid panel Lipid Screening [facility] Start: 1996 LIPID SCREEN LIPID SCREEN [facility] Start: 1980 Urine screening for protein Diabetes: Urine Protein Screening [facility] Start: 09-07-1979 Annual PCP Team Hematology Supervisor elijah Disease Visit Annual PCP Team Chronic Disease Visit [facility] Start: 09-07-1979 Anxiety Screening Anxiety Screening [facility] Start: 09-07-1979 BP Controlled (<130/80) BP Controlle d (<130/80) [facility] Start: 09-07-1979 Depression Screening Depression Scre ening [facility] Start: 09-07-1979 HEPATITIS C SCREENING HEPATITIS C SC [facility] Start: 09-07-1979 Hepatitis C screening Hepatitis C Sc [facility] Start: 09-07-1979 HIV SCREENING HIV SCREENING [facility] Start: 09-07-1979 HIV screening HIV Screening [facility] Start: 1973 Adult depression scr eening assessment DEPRESSION SCREENING [facility] Start: 09-07-1971 Glaucoma screening Diabetes: R etinopathy Screening [facility] Start: 1961 Hemoglobin A1c measurement Mariana betes: Hemoglobin A1C [facility] Start: 1961 Screening for malign ant neoplasm of colon [facility] End: 06-24-2022 ECG COMPLETE ECG COMPLETE ECG Routine Persistent atrial fibrillation (HCC) IRB 20-461 MAP AF PI: Dr. Shannon Dozier 1 Occurrences starting 06/24/2021 until 06/24/2022 [facility] Work Phone: Comment on above: 1 Occurrences starti ng 06/24/2021 until 06/24/2022 End: 09-30-2022 ECG COMPLETE ECG COMPLETE ECG Routine Persistent atrial fibrillation (HCC) IRB 20-461 MAP AF PI: Dr. Shannon Dozier 1 Occurrences starting 09/30/2021 until 09/30/2022 [facility] Work Phone: Comment on above: 1 Occurrences starti ng 09/30/2021 until 09/30/2022 End: 09-03-2025 ECG COMPLETE ECG COMPLETE ECG Routine Persistent atrial fibrillation (HCC) 1 Occurrences starting 09/03/2024 until 09/03/2025 [facility] Work Phone: Comment on above: 1 Occurrences starti ng 09/03/2024 until 09/03/2025 Echocardiography ECHO Cardiology Routine Atrial fibrillation, persistent (HCC) Ordered: 06/23/2021 [facility] Work Phone: Comment on above: Ordered: 06/23/2021 OUTSIDE VENDOR CARDI AC OUTPATIENT EXTENDED RHYTHM RECORDING (WITHOUT TELEMETRY) OUTSIDE VENDOR CARDIAC OUTPATIENT EXTENDED RHYTHM RECORDING (WITHOUT TELEMETRY) Holter Routine Persistent atrial fibrillation (HCC) IRB 20-082 MAP AF PI: Dr. Shannon Dozier Ordered: 06/24/2021 [facility] Work Phone: Comment on above: Ordered: 06/24/2021 OUTSIDE VENDOR CARDI AC OUTPATIENT EXTENDED RHYTHM RECORDING (WITHOUT TELEMETRY) OUTSIDE VENDOR CARDIAC OUTPATIENT EXTENDED RHYTHM RECORDING (WITHOUT TELEMETRY) Holter Routine Persistent atrial fibrillation (HCC) IRB 20-011 MAP AF PI: Dr. Shannon Dozier Ordered: 09/30/2021 [facility] Work Phone: Comment on above: Ordered: 09/30/2021 [facility] Immunizations Immunization Date Immunization Notes Care Provider Shahzad gastelum 07-20-2021 Pfizer Cook Cap SARS-CoV-2 Vaccination Radha Bonilla DPM Work Phone: [facility] 07-09-2020 Pfizer Purple Cap SARS-CoV-2 Vaccination Radha Bonilla DPM Work Phone: [facility] 07-03-2020 SARS-CoV-2 (COVID-19 ) mRNA BNT-162b2 vax Terrence CAPPS [facility] [place] 06-18-2020 Pfizer Purple Cap SARS-CoV-2 Vaccination Radha Bonilla DPM Work Phone: [facility] 06-11-2020 SARS-CoV-2 (COVID-19 ) mRNA BNT-162b2 vax Terrence HOBBSChalo [facility] [place] 07-06-2010 tetanus toxoid, redu rodrigo diphtheria toxoid, and acellular pertussis vaccine, adsorbed Research Main [facility] Payers Date Payer Category Payer Unknown [id number] 2022 Blue Cross Blue Shield [id number] 2022 Unknown [id number] 2018 Unknown MMO MMO [employer] [id number] 2018-Present [phone] [address] [place] [address] O [id number] 2018 Unknown [id number] 1961 Unknown [id number] 2.16.840.1.678682.3.579.2 .647 1961 Unknown [id number] 2.16.840.1.136779.3.579.2 .593 1961 Unknown [id number] 2.16.840.1.530380.3.579.2 .593 1961 Unknown [id number] 2.16.840.1.289811.3.579.2 .593 1961 Unknown [id number] 2.16.840.1.516959.3.579.2 .593 1961 Unknown [id number] 2.16.840.1.327982.3.579.2 .593 1961 Unknown [id number] 2.16.840.1.893286.3.579.2 .593 1961 Unknown [id number] 2.16.840.1.493397.3.579.2 .593 1961 Unknown [id number] 2.16.840.1.718800.3.579.2 .727 1961 Unknown [id number] 2.16.840.1.369509.3.579.2 .727 1961 Unknown [id number] 2.16.840.1.609868.3.579.2 .727 1961 Unknown [id number] 2.16.840.1.247719.3.579.2 .1259 1961 Unknown [id number] 2.16.840.1.180770.3.579.2 .1259 1961 Unknown [id number] 2.16.840.1.122037.3.579.2 .1259 1961 Unknown [id number] 2.16.840.1.399338.3.579.2 .1259 1961 Unknown [id number] 2.16.840.1.426343.3.579.2 .1259 1961 Unknown [id number] 2.16.840.1.662920.3.579.2 .1259 1961 Unknown [id number] 2.16.840.1.229258.3.579.2 .1259 1961 Unknown [id number] 2.16.840.1.364961.3.579.2 .1259 1959 Unknown [id number] Social History Date Type Detail Facility Start: 07-18-2018 End: 03-11-2022 Tobacco smoking status NHIS Ex-smoker [facility] End: 04-04-2017 History of tobacco use Current smoker [facility] End: 04-04-2017 History of tobacco use Cigarette Smoker [facility] Start: 07-18-2018 End: 03-11-2022 Tobacco use and exposure Smokeless tobacco non-user [facility] Start: 06-23-2021 End: 03-08-2023 Alcohol intake Current drinker of alcohol (finding) [facility] Start: 07-18-2018 History SDOH Alcohol Comment rarely [facility] Start: 1960 Sex Assigned At Male [facility] Start: 06-13-2021 End: 09-24-2021 Exposure to SARS-CoV-2 (event) Not sure [facility] Tobacco smoking status Never [facility] [place] Start: 03-11-2022 End: 03-08-2023 Sex Assigned At Male [facility] [place] Start: 09-20-2021 End: 09-30-2021 Exposure to SARS-CoV-2 (event) Unable to assess [facility] Work Phone: Start: 03-11-2022 End: 03-08-2023 History of Social function [facility] Start: 04-07-2021 Gender identity Identifies as male gender (finding) [facility] Start: 04-07-2021 Sexual orientation Heterosexual (finding) [facility] Start: 10-27-2023 End: 08-07-2024 Alcoholic beverage intake Ex-drinker (finding) [facility] Start: 08-22-2023 Alcohol Comment rare [facility] Start: 1960 Sex assigned at Not on file [facility] Medical Equipment Procedure Code Equipment Code Equipment Origin al Text Equipment Identifier Dates 1 each by In Vit ro route Daily [id number] Start: 08-07-2024 1 each Daily [id number] Start: 08-07-2024 Goals Date Patient Goal Desired Activity /State Personal health goal Functional Status Date Assessment Result Facility 03-19-2021 Are you deaf, or do you have serious difficulty hearing No 03/19/2021 5:23 PM Jamaica Salvador RN No [facility] 03-19-2021 Are you blind, or do you have serious difficulty seeing, even when wearing glasses No 03/19/2021 5:23 PM Jamaica Salvador, RONALD No [facility] 03-19-2021 Do you have serious difficulty walking or climbing stairs No 03/19/2021 5:23 PM Jamaica Salvador, RONALD No [facility] 03-19-2021 Do you have difficul ty dressing or bathing No 03/19/2021 5:23 PM Jamaica Salvador, RONALD No [facility] 03-19-2021 Because of a physica l, mental, or emotional condition, do you have difficulty doing errands alone such as visiting a physician's office or shopping No 03/19/2021 5:23 PM Jamaica Salvador RN No [facility] Mental Status Date Assessment Result Facility 03-19-2021 Because of a physica l, mental, or emotional condition, do you have serious difficulty concentrating, remembering, or making decisions No 03/19/2021 5:23 PM Jamaica Salvador RN No [facility] Clinical Notes 06-23-2021 to 09-03-2024 Telephone Encounter - Lana Lemon - 09/03/2024 2:12 PM EDTTelephone Encounter - Lana Lemon - 09/03/2024 2:12 PM EDTMochoa Spangler MD - 08/07/2024 3:39 PM EDT Note Date & Type Note Facility 09-03-2024 Telephone encounter Note Call from patient's requesting Eliquis refill. Requested Prescriptions Pending Prescriptions Disp Refills apixaban (ELIQUIS) 5 mg tab(s) 180 tablet 3 Sig: Take 1 tablet by mouth two times a day. Patient last seen Mar 2023. Per Dr. Winter's office 08 Mar 2023 Continue current management and follow-up in 2 years or sooner if needed. Patient's encourage to make a follow up appointment w/Dr. Winter at their earliest convenience. Transferred her to scheduling office. Lana Magdaleno [facility] 09-03-2024 Miscellaneous Notes Call from patient's requesting Eliquis refill. Requested Prescriptions Pending Prescriptions Disp Refills apixaban (ELIQUIS) 5 mg tab(s) 180 tablet 3 Sig: Take 1 tablet by mouth two times a day. Patient last seen Mar 2023. Per Dr. Winter's office 08 Mar 2023 Continue current management and follow-up in 2 years or sooner if needed. Patient's encourage to make a follow up appointment w/Dr. Winter at their earliest convenience. Transferred her to scheduling office. Lana Magdaleno documented in this encounter [facility] 08-07-2024 History of Present illness Narrative Associated Problem(s): Type 2 diabetes mellitus with hyperglycemia, without long-term current use of insulin (CMS/HCC) Not checking BS and due for A1C. [...] panel PSA TSH documented in this encounter [facility] 05-30-2024 Note Sleep Medicine Follo w-Up Identifying Patient Descriptions: Right-handed white male; previous served in 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 Case History: Dr. Cintron and STEPHANIE Pretty referred this patient for consultation as regards [...] He does not take any stimulant medications. [place] Sleepiness Scale: Current total score: 2/24, Previous total score: 4/24, and Baseline total score: 2/24 Quality of Life: Functional Outcomes of Sleep [...] 40 FOSQ-10??? 2004, Susu Casillas FOSQ-10 - [facility]/[place] FOSQ-10_AU1.0_eng-[email or web address].docx PAP Data Downloaded from Patient's PAP Device [...] pain and palpitat (more content not included)... [facility] 05-21-2024 Telephone encounter Note Returned call [...] concerns at this time. Haroon Barber RN [facility] 05-21-2024 Miscellaneous Notes Returned call to [...] RN May 21, 2024 Patient Contact Number: [phone] (home) [phone] (cell) Patient last seen within the last year No Reason For Call: Other Issue: Patients is calling. They will be traveling to [place] and was wondering if making such a long travel that Mr. Robert should wear compression socks. Please call to advise. Tiffanie Sutton documented in this encounter [facility] 05-21-2024 Telephone encounter Note May 21, 2024 Patient Contact Number: [phone] (home) [phone] (cell) Patient last seen within the last year No Reason For Call: Other Issue: Patients is calling. They will be traveling to [place] and was wondering if making such a long travel that Mr. Robert should wear compression socks. Please call to advise. Tiffanie Sutton [facility] 02-13-2024 History of Present illness Narrative [...] Radha Bonilla DPM documented in this encounter [facility] 02-13-2024 Instructions Radha Bonilla DPM - 02/13/2024 8:30 AM EST As noted documented in this encounter [facility] 02-08-2024 History of Present illness Narrative Associated Problem(s): Type 2 diabetes mellitus with hyperglycemia, without long-term current use of insulin (CMS/HCC) Not checking BS and due for A1C. Stick to ADA diet and limit carbs. Associated Problem(s): Gastroesophageal reflux disease without esophagitis Occasional symptoms and use OTC PRN. Associated Problem(s): Essential hypertension, benign (CMS/HCC) BP controlled and monitor PRN. Associated Problem(s): AF (paroxysmal atrial fibrillation) (CMS/[facility]) In NSR and continue medication. Follow up [...] Orders Hemoglobin A1c documented in this encounter [facility] 02-02-2024 History of Present illness Narrative Images [...] Rfl: 5 cholecalciferol (Vitamin D-3) 50 MCG (2000 UT) tablet, TAKE 1 TABLET BY MOUTH [...] Radha Bonilla DPM documented in this encounter [facility] 02-02-2024 Instructions Radha Bonilla DPM - 02/02/2024 3:30 PM EDT Post-procedure instructions as noted documented in this encounter [facility] 01-05-2024 Telephone encounter Note Call from patient requesting refill. Requested Prescriptions Pending Prescriptions Disp Refills metoprolol succinate ER (TOPROL XL) 25 mg 24 hr tablet [Pharmacy Med Name: METOPROLOL SUCC ER 25 MG TAB] 180 tablet 3 Sig: take 1 tablet by mouth twice a day Patient last seen 03/08/23 Tiffanie Sutton [facility] 01-05-2024 Miscellaneous Notes Call from patient requesting refill. Requested Prescriptions Pending Prescriptions Disp Refills metoprolol succinate ER (TOPROL XL) 25 mg 24 hr tablet [Pharmacy Med Name: METOPROLOL SUCC ER 25 MG TAB] 180 tablet 3 Sig: take 1 tablet by mouth twice a day Patient last seen 03/08/23 Tiffanie Sutton documented in this encounter [facility] 08-08-2023 Telephone encounter Note Electronic request for refill. Requested Prescriptions Pending Prescriptions Disp Refills ELIQUIS 5 mg tab(s) [Pharmacy Med Name: ELIQUIS 5 MG TABLET] 180 tablet 3 Sig: take 1 tablet by mouth twice a day Last office visit in was 03/08/2023 Sue Tellez [facility] 08-08-2023 Miscellaneous Notes Electronic request for refill. Requested Prescriptions Pending Prescriptions Disp Refills ELIQUIS 5 mg tab(s) [Pharmacy Med Name: ELIQUIS 5 MG TABLET] 180 tablet 3 Sig: take 1 tablet by mouth twice a day Last office visit in was 03/08/2023 Sue Tellez documented in this encounter [facility] 03-08-2023 History of Present illness Narrative Images from the original note were not included. [facility] Department of Cardiovascular Medicine SECTION OF CARDIAC PACING and ELECTROPHYSIOLOGY OUTPATIENT VISIT DATE March 08, 2023 OUTPATIENT VISIT TYPE ESTABLISHED PRIMARY CARE PHYSICIAN: Michael Spangler MD ([facility]) [address] [place] [address] REFERRING PHYSICIAN: No referring provider defined for [...] and confirmed the findings of the Physician Channel Director/Nurse Practitioner or fellow/resident above, with the addition [...] Jessica Winter MD documented in this encounter [facility] 01-14-2023 Miscellaneous Notes Call from patient requesting refill. Requested Prescriptions Pending Prescriptions Disp Refills metoprolol succinate ER (TOPROL XL) 25 mg 24 hr tablet 180 tablet 3 Sig: Take 1 tablet by mouth two times a day. Patient last seen 03/11/22 Tiffanie Sutton documented in this encounter [facility] 09-22-2022 Note Chief Complaint consultation for [...] Heart disease: Fa (more content not included)... [facility] Comment on above: Result Comment: Elec [...] locations: N/A Zio Patch monitor placed by Audiometrist: Yes Informed patient that this was his final study visit and that he needs to continue his SOC treatments and visits per MD direction. He verbalized understanding. Quarter Inspector: Leny Leon Pager #: [phone] documented in this encounter [facility] 01-08-2022 Miscellaneous Notes Call from pharmacy requesting refill. Requested Prescriptions Pending Prescriptions Disp Refills metoprolol succinate ER (TOPROL XL) 25 mg 24 hr tablet [Pharmacy Med Name: METOPROLOL SUCC ER 25 MG TAB] 180 tablet 3 Sig: TAKE 1 TABLET BY MOUTH TWICE A DAY Patient last seen 09/24/21 Amee Fabian [facility] documented in this encounter [facility] 10-07-2021 Note [facility] [place] [place] NAME: JAKOB ABBEY Michelle DATE OF : MEDICAL REC#: [id number] LAW REPORTER: 160ROCIO HODGES ADMIT DATE: 10/07/2021 06:32:00 SUCTION DREDGE DUMPING SUPERVISOR DATE: 10/07/2021 23:54 DICTATING PHYSICIAN: TERRENCE CAPPS [...] Capps MD on 10/12/2021 05:16 PM EDT IFC Signed and Approved by: DR TERRENCE CAPPS . 10/12/2021 17:16:00 [facility] 09-24-2021 History of Present illness Narrative EVENT MONITOR DISPOSABLE PATCH INSTRUCTIONS Patient Name: Abbey Robert Clinic Number: [id number] Skin prepped and cleansed with alcohol Patch secured to prepped area Monitor Activated Serial #: [id number] Patient Instructed: 1.) Prescribed order timeframe 2.) Bathing guidelines 3.) Usage of event button and diary documentation 4.) Return of monitor at the end of prescribed order 5.) Call with problems [phone] or [phone] ext. [phone] Patient expresses a good understanding of instructions Nighat EDGE documented in this encounter [facility] 09-24-2021 History of Present illness Narrative Images from the original note were not included. [facility] Department of Cardiovascular Medicine SECTION OF CARDIAC PACING and ELECTROPHYSIOLOGY OUTPATIENT VISIT DATE September 24, 2021 OUTPATIENT VISIT TYPE ESTABLISHED PRIMARY CARE PHYSICIAN: Michael Spangler MD ([facility]) [address] [place] [address] CHIEF COMPLAINT: AF HISTORY OF PRESENT ILLNESS/NURSING [...] prophylaxis without bleeding complications. He has a [id number] score of 1 for hypertension. EKG today: [...] prophylaxis without bleeding complications. He has a [id number] score of 1 for hypertension. EKG today: Doing very well post ablation with no recurrence. Continue current medications and follow-up in 6 months or sooner if needed. I personally interviewed, confirmed and edited the above information as obtained by others. CONTACT INFORMATION: Jessica Winter MD documented in this encounter [facility] 09-21-2021 Miscellaneous Notes Electronic request for refill. Pending Prescriptions Disp Refills ELIQUIS 5 MG TABLET 180 tablet 3 Sig: TAKE 1 TABLET BY MOUTH TWICE A DAY LENA: Yes Last office visit in was 06/23/2021 Sue Tellez documented in this encounter [facility] 07-09-2021 Miscellaneous Notes Mr. Robert has two months' worth of Eliquis at home and may be able to discontinue after his f/u visit with Dr. Winter. He will discuss at his visit. Kristyn Pretty RN Mr. Robert returned nurse call, asking to be contacted [facility] Images from the original note were not included. Full fax scanned into [employer]. documented in this encounter [facility] 07-02-2021 Miscellaneous Notes PA submitted via [employer]. Isidra De Jesus RN Images from the original note were not included. documented in this encounter [facility] 06-23-2021 History of Present illness Narrative HOLTER MONITOR APPLICATION Patient Name: Abbey Robert [facility] Number: [id number] Chest is cleansed with alcohol Skin prep [...] or 48 hours 6.) Call with problems [phone] OR [phone] Patient expresses good verbal understanding of instructions GIUSEPPE aGrcia documented in this encounter [facility] 06-23-2021 History of Present illness Narrative [...] visits: No Zio Patch monitor placed by Audiometrist: Yes Discussed with the patient the importance of follow up in the study and time of next required study visit. He verbalized understanding. The patient prefers 6-month follow up in person. Patient contact information reaffirmed and updated. Coordinator contact information provided to the patient. Education provided: Follow up requirements/schedule Materials dispensed: None Quarter Inspector: Mariah Cavazos PA-C Pager #: [phone] documented in this encounter [facility] 06-23-2021 Nurse Note 1. How often [...] Miri Cunha RN documented in this encounter [facility] 06-23-2021 History of Present illness Narrative Images from the original note were not included. [facility] Department of Cardiovascular Medicine SECTION OF CARDIAC PACING and ELECTROPHYSIOLOGY OUTPATIENT VISIT DATE June 23, 2021 OUTPATIENT VISIT TYPE ESTABLISHED PRIMARY CARE PHYSICIAN: Michael Spangler MD ([facility]) [address] [place] [address] CHIEF COMPLAINT: AF HISTORY OF PRESENT ILLNESS/NURSING [...] AAD Not applicable documented in this encounter [facility] Evaluation + Plan note No data available for this section General Surgery Hi Evaluation note Diagnosis IRB 2046 MAP AF PI: Dr. Shannon Dozier- Primary [facility] Diagnosis Atrial fibrillation, persistent (HCC)- Primary Atrial fibrillation [facility]* Diagnosis Atrial fibrillation, persistent (HCC) Atrial fibrillation [facility]* Diagnosis Persistent atrial fibrillation (HCC)- Primary Atrial fibrillation IRB MAP AF PI: Dr. Shannon Dozier [facility]* Diagnosis Atrial fibrillation, persistent (HCC)- Primary Atrial fibrillation [facility]* Diagnosis Atrial fibrillation, persistent (HCC)- Primary Atrial fibrillation Obstructive sleep apnea syndrome Obstructive sleep apnea (adult) (pediatric) Left atrial thrombus Other ill-defined heart disease Ejection fraction < 50% Other symptoms involving cardiovascular system [facility] [facility]* Diagnosis Persistent atrial fibrillation (HCC)- Primary Atrial fibrillation IRB MAP AF PI: Dr. Shannon Dozier documented [facility] this encounter [facility]* Diagnosis IRB MAP AF PI: Dr. Shannon Dozier- Primary documented in this encounter [facility]* Diagnosis Persistent atrial fibrillation (HCC)- Primary Atrial fibrillation Primary hypertension Unspecified essential hypertension documented in this encounter [facility]* Diagnosis Type 2 diabetes mellitus with [...] Difficulty in walking [facility] Diagnosis Type 2 diabetes mellitus with [...] esophagitis Esophageal reflux documented in this encounter [facility]* Diagnosis Type 2 diabetes [...] Dermatophytosis of nail documented in this encounter [facility]* Diagnosis Type 2 diabetes [...] health care facility documented in this encounter [facility]* Diagnosis Persistent atrial fibrillation (HCC)- Primary Atrial fibrillation [facility] Diagnosis Persistent atrial fibrillation (HCC)- Primary Atrial fibrillation documented in this encounter [facility] Discharge instructions No data available for this section General Surgery [employer] Progress note No data available for this section General Surgery [employer] Reason for referral (narrative)* Outpatient Procedure (Routine) - Pending Review Specialty Diagnoses / Procedures Referred By Contac t Referred To Contact [facility] Diagnoses Atrial fibrillation, persistent (HCC) Procedures ECHO ECHO TTHRC R-T 2D W/WOM-MODE COMPL SPEC&COLR D Jessica Winter MD [address] [place] [address] [facility] [place] [phone] Referral ID Status Reason Start Date Expiration Date Visits Requested Visits Authorized [id number] Pending Review Auto-Generat ed Referral 06/23/2021 06/23/2022 1 1 [facility] for referral (narrative)* Outpatient Procedure (Routine) - Authorized Specialty Diagnoses / Procedures Referred By Contac t Referred To Contact [facility] Diagnoses Persistent atrial fibrillation (HCC) Research study patient Procedures ECG COMPLETE ECG ROUTINE ECG W/LEAST 12 LDS W/I&R Jessica Winter MD [address] [facility] [place] [address] [address] Referral ID Status Reason Start Date Expiration Date Visits Requested Visits Authorized [id number] Authorized Auto-Generat ed Referral 06/24/2021 06/24/2022 1 1 [facility] Procedure (Routine) - Authorized Specialty Diagnoses / Procedures Referred By Contwilfredo t Referred To Contact [facility] Diagnoses Persistent atrial fibrillation (HCC) Research study patient Procedures ECG COMPLETE ECG ROUTINE ECG W/LEAST 12 LDS W/I&R Jessica Winter MD [address] [place] [address] [place] [phone] Referral ID Status Reason Start Date Expiration Date Visits Requested Visits Authorized [id number] Authorized Auto-Generat ed Referral 09/30/2021 09/30/2022 1 1 [facility] Summary Purpose Family History No Family History Records FoundNo Family History Records FoundNo Family History Records FoundNo Family History Records FoundNo Family History Records FoundNo Family History Records Found Advance Directives Documents on File Type Date Recorded Patient Payroll Tax Analyst Expl anation Advance Directive(s) 01/14/2021 9:41 AM Advance Directive(s) 01/13/2021 9:43 AM Advance Directive(s) 11/06/2020 9:05 AM Advance Directive(s) 11/13/2018 5:12 AM Advance Directive(s) 10/27/2018 12:26 PM Advance Directive(s) 08/14/2018 10:04 AM Advance Directive(s) 07/31/2018 11:29 AM Documents on File Type Date Recorded Patient Payroll Tax Analyst Expl anation Advance Directive(s) 01/14/2021 9:41 AM Advance Directive(s) 01/13/2021 9:43 AM Advance Directive(s) 11/06/2020 9:05 AM Advance Directive(s) 11/13/2018 5:12 AM Advance Directive(s) 10/27/2018 12:26 PM Advance Directive(s) 08/14/2018 10:04 AM Advance Directive(s) 07/31/2018 11:29 AM Reason for Referral Specialty Diagnoses / Procedures Referred By Contac t Referred To Contact Procedures CARDIOVASCULAR MEDICINE OP FOLLOW UP APPT ORDER Jessica Winter MD [address] [place] [address] Referral ID Status Reason Start Date Expiration Date Visits Requested Visits Authorized [id number] Ref Not Required PCP Requested Referral 03/08/2023 03/07/2024 1 1 Additional Source Comments (unrecognized sect ion and content) No Status Records FoundNo Status Records FoundNo Status Records FoundNo Status Records FoundNo Status Records FoundNo Status Records Found INFORMATION SOURCE (unrecogn ized section and content) DATE CREATED AUTHOR 04/27/2019 [facility] DATE CREATED AUTHOR AUTHOR'S ORGANIZ ATION 02/20/2022 [facility] DATE CREATED AUTHOR AUTHOR'S ORGANIZ ATION 11/18/2022 [facility] DATE CREATED AUTHOR AUTHOR'S ORGANIZ ATION 05/22/2024 [facility] DATE CREATED AUTHOR AUTHOR'S ORGANIZ ATION 06/01/2024 [facility] DATE CREATED AUTHOR AUTHOR'S ORGANIZ ATION 08/10/2024 [facility] EPIC Source Comments (unrecognize d section and content) In the event this informatio n is protected by the Federal Confidentiality of Alcohol and Drug Abuse Patient Records regulations: The Federal rules restrict any use of the information to criminally investigate or prosecute any alcohol or drug abuse patient.[facility] the event this information is protected by the Federal Confidentiality of Alcohol and Drug Abuse Patient Records regulations: The Federal rules restrict any use of the information to criminally investigate or prosecute any alcohol or drug abuse patient.[facility] the event this information is protected by the Federal Confidentiality of Alcohol and Drug Abuse Patient Records regulations: The Federal rules restrict any use of the information to criminally investigate or prosecute any alcohol or drug abuse patient.[facility] the event this information is protected by the Federal Confidentiality of Alcohol and Drug Abuse Patient Records regulations: The Federal rules restrict any use of the information to criminally investigate or prosecute any alcohol or drug abuse patient.[facility] the event this information is protected by the Federal Confidentiality of Alcohol and Drug Abuse Patient Records regulations: The Federal rules restrict any use of the information to criminally investigate or prosecute any alcohol or drug abuse patient.[facility] the event this information is protected by the Federal Confidentiality of Alcohol and Drug Abuse Patient Records regulations: The Federal rules restrict any use of the information to criminally investigate or prosecute any alcohol or drug abuse patient.[facility] the event this information is protected by the Federal Confidentiality of Alcohol and Drug Abuse Patient Records regulations: The Federal rules restrict any use of the information to criminally investigate or prosecute any alcohol or drug abuse patient.[facility] the event this information is protected by the Federal Confidentiality of Alcohol and Drug Abuse Patient Records regulations: The Federal rules restrict any use of the information to criminally investigate or prosecute any alcohol or drug abuse patient.[facility] the event this information is protected by the Federal Confidentiality of Alcohol and Drug Abuse Patient Records regulations: The Federal rules restrict any use of the information to criminally investigate or prosecute any alcohol or drug abuse patient.[facility] the event this information is protected by the Federal Confidentiality of Alcohol and Drug Abuse Patient Records regulations: The Federal rules restrict any use of the information to criminally investigate or prosecute any alcohol or drug abuse patient.[facility] the event this information is protected by the Federal Confidentiality of Alcohol and Drug Abuse Patient Records regulations: The Federal rules restrict any use of the information to criminally investigate or prosecute any alcohol or drug abuse patient.[facility] the event this information is protected by the Federal Confidentiality of Alcohol and Drug Abuse Patient Records regulations: The Federal rules restrict any use of the information to criminally investigate or prosecute any alcohol or drug abuse patient.[facility] the event this information is protected by the Federal Confidentiality of Alcohol and Drug Abuse Patient Records regulations: The Federal rules restrict any use of the information to criminally investigate or prosecute any alcohol or drug abuse patient.[facility] the event this information is protected by the Federal Confidentiality of Alcohol and Drug Abuse Patient Records regulations: The Federal rules restrict any use of the information to criminally investigate or prosecute any alcohol or drug abuse patient.[facility] the event this information is protected by the Federal Confidentiality of Alcohol and Drug Abuse Patient Records regulations: The Federal rules restrict any use of the information to criminally investigate or prosecute any alcohol or drug abuse patient.[facility] the event this information is protected by the Federal Confidentiality of Alcohol and Drug Abuse Patient Records regulations: The Federal rules restrict any use of the information to criminally investigate or prosecute any alcohol or drug abuse patient.[facility] the event this information is protected by the Federal Confidentiality of Alcohol and Drug Abuse Patient Records regulations: The Federal rules restrict any use of the information to criminally investigate or prosecute any alcohol or drug abuse patient.[facility] the event this information is protected by the Federal Confidentiality of Alcohol and Drug Abuse Patient Records regulations: The Federal rules restrict any use of the information to criminally investigate or prosecute any alcohol or drug abuse patient.[facility] the event this information is protected by the Federal Confidentiality of Alcohol and Drug Abuse Patient Records regulations: The Federal rules restrict any use of the information to criminally investigate or prosecute any alcohol or drug abuse patient.[facility] the event this information is protected by the Federal Confidentiality of Alcohol and Drug Abuse Patient Records regulations: The Federal rules restrict any use of the information to criminally investigate or prosecute any alcohol or drug abuse patient.[facility] the event this information is protected by the Federal Confidentiality of Alcohol and Drug Abuse Patient Records regulations: The Federal rules restrict any use of the information to criminally investigate or prosecute any alcohol or drug abuse patient.[facility] the event this information is protected by the Federal Confidentiality of Alcohol and Drug Abuse Patient Records regulations: The Federal rules restrict any use of the information to criminally investigate or prosecute any alcohol or drug abuse patient.[facility] Reason for Visit (unrecogniz ed section [...] to walk Knee Pain Bilateral knee pain Reason Onset Date Comments Refill Request 09/03/2024 Eliquis Care Teams (unrecognized sec tion and content) Correctional Therapy Director Relationship Specialty Start Date End Date Michael Spangler [address] [place] [address] PCP - General Family Practice 07/18/18 Donavon Morales [address] [place] [id number] Referring Cardiology 07/06/18 Correctional Therapy Director Relationship Specialty Start Date End Date Michael Spangler [address] [place] [address] PCP - General Family Practice 07/18/18 Donavon Morales [address] [facility] [place] [address] Referring Cardiology 07/06/18 Correctional Therapy Director Relationship Specialty Start Date End Date Michael Spangler [address] [place] [address] PCP - General Family Practice 07/18/18 CarmenJossekenyon Pickard [address] [facility] [place] [address] Referring Cardiology 07/06/18 Correctional Therapy Director Relationship Specialty Start Date End Date Michael Spangler [address] [place] [address] PCP - General Family Practice 07/18/18 Carmen Donavonkenyon Pickard [address] [facility] [place] [address] Referring Cardiology 07/06/18 Correctional Therapy Director Relationship Specialty Start Date End Date Michael Spangler [address] [place] [address] PCP - General Family Practice 07/18/18 CarmenDonavon [address] [facility] [place] [address] Referring Cardiology 07/06/18 Correctional Therapy Director Relationship Specialty Start Date End Date Michael Spangler [address] [place] [address] PCP - General Family Practice 07/18/18 CarmenJossekenyon Pickard [address] [facility] [place] [address] Referring Cardiology 07/06/18 Correctional Therapy Director Relationship Specialty Start Date End Date Michael Spangler [address] [place] [address] PCP - General Family Practice 07/18/18 Donavon Morales [address] [facility] [place] [address] Referring Cardiology 07/06/18 Correctional Therapy Director Relationship Specialty Start Date End Date Michael Spangler [address] [place] [address] PCP - General Family Practice 07/18/18 CarmenJossekenyon Pickard [address] [facility] [place] [address] Referring Cardiology 07/06/18 Correctional Therapy Director Relationship Specialty Start Date End Date Michael Spangler [address] [place] [address] PCP - General Family Practice 07/18/18 Donavon Morales [address] [facility] [place] [address] Referring Cardiology 07/06/18 Correctional Therapy Director Relationship Specialty Start Date End Date DanyelMichael nunes [address] [place] [address] PCP - General Family Practice 07/18/18 CarmenJossekenyon Pickard [address] [facility] [place] [address] Referring Cardiology 07/06/18 Correctional Therapy Director Relationship Specialty Start Date End Date Crys Michael Colt [address] [place] [address] PCP - General Family Medicine 07/18/18 Donavon Morales [address] [facility] [place] [address] Referring Cardiology 07/06/18 Correctional Therapy Director Relationship Specialty Start Date End Date Michael Spangler [address] [place] [address] PCP - General Family Medicine 07/18/18 Donavon Morales [address] [facility] [place] [address] Referring Cardiology 07/06/18 Correctional Therapy Director Relationship Specialty Start Date End Date Michael Spangler [address] [place] [address] PCP - General Family Medicine 07/18/18 Donavon Morales MD [address] [facility] [place] [address] Referring Cardiology 07/06/18 Correctional Therapy Director Relationship Specialty Start Date End Date Michael Spangler [address] [place] [address] PCP - General Family Medicine 07/18/18 Donavon Morales MD [address] [facility] [place] [address] Referring Cardiology 07/06/18 Correctional Therapy Director Relationship Specialty Start Date End Date Michael Spangler [address] [place] [address] PCP - General Family Medicine 07/18/18 Donavon Morales MD [address] [facility] [place] [address] Referring Cardiology 07/06/18 Correctional Therapy Director Relationship Specialty Start Date End Date Michael Spangler [address] [place] [address] PCP - General Family Medicine 07/18/18 Donavon Morales MD [address] [facility] [place] [address] Referring Cardiology 07/06/18 Correctional Therapy Director Relationship Specialty Start Date End Date Michael Spangler [address] [place] [address] PCP - General Family Medicine 07/18/18 Donavon Morales MD [address] [facility] [place] [address] Referring Cardiology 07/06/18 Correctional Therapy Director Relationship Specialty Start Date End Date Michael Spangler MD [address] [place] [address] PCP - [employer] 04/04/23 Michael Spangler MD [address] [place] [address] PCP - General Family Medicine 08/10/23 Correctional Therapy Director Relationship Specialty Start Date End Date Michael Spangler MD [address] [place] [address] PCP - [employer] 04/04/23 Michael Spangler MD [address] [place] [address] PCP - General Family Medicine 08/10/23 Correctional Therapy Director Relationship Specialty Start Date End Date Michael Spangler MD [address] [place] [address] PCP - [employer] 04/04/23 Michael Spangler MD [address] [place] [address] PCP - General Family Medicine 08/10/23 Correctional Therapy Director Relationship Specialty Start Date End Date Michael Spangler MD [address] [place] [address] PCP - [employer] 04/04/23 Michael Spangler MD [address] [place] [address] PCP - General Family Medicine 08/10/23 Correctional Therapy Director Relationship Specialty Start Date End Date Michael Spangler MD [address] [place] [address] PCP - [employer] 04/04/23 Michael Spangler MD [address] [place] [address] PCP - General Family Medicine 08/10/23 Correctional Therapy Director Relationship Specialty Start Date End Date Michael Spangler MD [address] [place] [address] PCP - [employer] 04/04/23 Michael Spangler MD [address] [place] [address] PCP - General Family Medicine 08/10/23 Correctional Therapy Director Relationship Specialty Start Date End Date Michael Spangler MD [address] [place] [address] PCP - [employer] 04/04/23 Michael Spangler MD [address] [place] [address] PCP - General Family Medicine 08/10/23 Correctional Therapy Director Relationship Specialty Start Date End Date Michael Spangler MD [address] [place] [address] PCP - General Family Medicine 07/18/18 Donavon Morales MD [address] [place] [address] Referring Cardiology 07/06/18 Correctional Therapy Director Relationship Specialty Start Date End Date Michael Spangler MD [address] [place] [address] PCP - [employer] 04/04/23 Michael Spangler MD [address] [place] [address] PCP - General Family Medicine 08/10/23 Correctional Therapy Director Relationship Specialty Start Date End Date Michael Spangler MD [address] [place] [address] PCP - [employer] 04/04/23 Michael Spangler MD [address] [place] [address] PCP - General Family Medicine 08/10/23 Correctional Therapy Director Relationship Specialty Start Date End Date Michael Spangler MD [address] [place] [address] PCP - [employer] 04/04/23 Michael Spangler MD [address] [place] [address] PCP - General Family Medicine 08/10/23 Correctional Therapy Director Relationship Specialty Start Date End Date Michael Spangler MD [address] [place] [address] PCP - General Family Medicine 07/18/18 Donavon Morales MD [address] [place] [address] Referring Cardiology 07/06/18 Correctional Therapy Director Relationship Specialty Start Date End Date Michael Spangler MD [address] [place] [address] PCP - General Family Medicine 07/18/18 Donavon Morales MD [address] [place] [address] Referring Cardiology 07/06/18 Correctional Therapy Director Relationship Specialty Start Date End Date Michael Spangler MD [address] [place] [address] PCP - General Family Medicine 07/18/18 Donavon Morales MD [address] [place] [address] Referring Cardiology 07/06/18 FOR RECORDS PERTAINING TO [...] BE BASED ON THE PRIMARY CLINICAL RECORDS. [facility]. provides no warranty or guarantee of the accuracy or completeness of information in this document.
--- NOTE | 2024-10-27 11:42 | XR_ITS ---
The [place] [id number] Patient Name: ABBEY ROBERT MRN: [id number] date: 1960 Sex: M Assigned Patient Location: ED.MAIN Current Patient Location: ED.MAIN Accession/Order Number: [id number] Exam Date: 10/27/2024 12:08 Report Date: 10/27/2024 12:10 At the request of: PERRY FLETCHER MD Procedure: XR hand RT min 3V RIGHT WRIST - 3 views, right hand 3 views CLINICAL HISTORY: Right hand/wrist pain status post fall 3 days ago COMPARISON: None FINDINGS: No focal soft tissue abnormality. No acute bony process is seen involving the wrist or hand. Joint spaces appear maintained. No bony erosions. Presumed remote injury involving the distal phalanx of the thumb. XR/XR wrist RT min 3V IMPRESSION: NO ACUTE BONY PROCESS. Impression dictated by: Neeraj Trevizo Jr., D.O. 10/27/2024 12:10 PM Dictation Location: [place] [address] Electronically authenticated by: [id number] Y Date: 10/27/2024 12:10
--- NOTE | 2024-10-27 11:42 | XR_ITS ---
The [place] [id number] Patient Name: ABBEY ROBERT MRN: [id number] date: 1960 Sex: M Assigned Patient Location: ED.MAIN Current Patient Location: ED.MAIN Accession/Order Number: [id number] Exam Date: 10/27/2024 12:08 Report Date: 10/27/2024 12:10 At the request of: PERRY FLETCHER MD Procedure: XR hand RT min 3V RIGHT WRIST - 3 views, right hand 3 views CLINICAL HISTORY: Right hand/wrist pain status post fall 3 days ago COMPARISON: None FINDINGS: No focal soft tissue abnormality. No acute bony process is seen involving the wrist or hand. Joint spaces appear maintained. No bony erosions. Presumed remote injury involving the distal phalanx of the thumb. XR/XR hand RT min 3V IMPRESSION: NO ACUTE BONY PROCESS. Impression dictated by: Neeraj Trevizo Jr., D.O. 10/27/2024 12:10 PM Dictation Location: [place] [address] Electronically authenticated by: [id number] Y Date: 10/27/2024 12:10
--- NOTE | 2024-10-27 12:18 | ED.GENADUL1 ---
HPI HPI - General Adult General Chief complaint: Extremity Injury, Upper Stated complaint: upper extremity injury Time Seen by Provider: 10/27/24 11:45 Source: patient and family Mode of arrival: walk-in Limitations: no limitations History of Present Illness HPI narrative: 64-year-old male presents for right wrist pain. He fell today when he lost his balance on his driveway and landed on his outstretched hand area. He points to the flexor side of his wrist going into the hand. No other injury was sustained. He is right-handed. No elbow pain or injury to his head. Related Data Home Medications ?Medication ?Instructions ?Recorded ?Confirmed apixaban 5 mg tablet (Eliquis) 5 mg PO BID 10/12/22 10/27/24 cholecalciferol (vitamin D3) 50 2,000 unit PO DAILY 10/12/22 10/27/24 mcg (2,000 unit) capsule (Vitamin D3) lisinopril 20 mg tablet 20 mg PO DAILY 10/12/22 10/27/24 metformin 500 mg tablet,extended 500 mg PO BID 10/12/22 10/27/24 release 24 hr metoprolol succinate 25 mg 25 mg PO DAILY 10/12/22 10/27/24 tablet,extended release 24 hr atorvastatin 40 mg tablet 40 mg PO DAILY 10/27/24 10/27/24 meloxicam 15 mg tablet 15 mg PO DAILY 10/27/24 10/27/24 semaglutide 1 mg/dose (4 mg/3 mL) 1 mg subcut .qweekly 10/27/24 10/27/24 subcutaneous pen injector (Ozempic) Allergies Allergy/AdvReac Type Severity Reaction Status Date / Time Penicillins Allergy Unknown Verified 10/12/22 14:28 Review of Systems ROS Narrative A ten point review of systems is negative except as noted above. [facility] Medical History (Updated 10/27/24 @ 12:17 by Cesar Szymanski MD) History of cardioversion ?Z92.89 - Personal history of other medical treatment (ICD-10) Hx of sigmoidoscopy ?Z98.890 - Other specified postprocedural states (ICD-10) Tubular adenoma of colon ?D12.6 - Benign neoplasm of colon, unspecified (ICD-10) Sleep apnea ?G47.30 - Sleep apnea, unspecified (ICD-10) History of colonic polyps ?Z86.010 - Personal history of colonic polyps (ICD-10) Morbid obesity ?E66.01 - Morbid (severe) obesity due to excess calories (ICD-10) Hypertension ?I10 - Essential (primary) hypertension (ICD-10) Chronic anticoagulation ?Z79.01 - [facility] (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 (ICD-10) Atrial fibrillation ?I48.91 - Unspecified atrial fibrillation (ICD-10) Surgical History (Updated 10/13/22 @ 13:49 by Keila Dougherty) Hx of tonsillectomy ?Z90.89 - Acquired absence of other organs (ICD-10) History of cardiac radiofrequency ablation ?Z98.890 - Other specified postprocedural states (ICD-10) H/O colonoscopy ?Z98.890 - Other specified postprocedural states (ICD-10) Family History (Updated 10/13/22 @ 13:39 by Keila Dougherty) Other Family history of CHF (congestive heart failure) Family history of COPD (chronic obstructive pulmonary disease) Family history of cancer Family history of diabetes mellitus Family history of hypertension Family history of myocardial infarction Social History (Updated 10/13/22 @ 13:49 by Keila Dougherty) Within the past year, how often did you have a drink containing alcohol: monthly or less Smoking status: Former smoker Non-prescribed substance use: denies use Highest level of school completed/degree received: high school graduate Little interest or pleasure in doing things: not at all Feeling down, depressed, or hopeless: not at all Exam Narrative Exam Narrative: Nurses note and vital signs reviewed and patient is not hypoxic. General: The patient appears well and in no apparent distress. Patient is resting comfortably on cart. Skin: Warm, dry, no pallor noted. There is no rash noted. Head: Normocephalic, atraumatic Eye: Normal conjunctiva, no drainage Ears, Nose, Mouth, and Throat: oral mucosa is moist. Nares patent. Cardiovascular: Regular Rate and Rhythm Respiratory: Patient is in no distress, no accessory muscle use Back: non-tender GI: Nontender Musculoskeletal: No deformity in the right hand or right wrist. No abrasions. Fingers have full range of motion as does the wrist. Right elbow nontender Neurological: A&O, normal speech Psychiatric: Cooperative Constitutional Vital Signs, click to edit/add: Last Vital Signs Temp 98.2 F 10/27/24 11:36 Pulse 74 10/27/24 11:36 Resp 18 10/27/24 11:36 BP 160/70 H 10/27/24 11:36 Pulse Ox 95 10/27/24 11:36 O2 Del Method Room Air 10/27/24 11:36 Course Vital Signs Vital signs: Vital Signs Temperature 98.2 F 10/27/24 11:36 Pulse Rate 74 10/27/24 11:36 Respiratory Rate 18 10/27/24 11:36 Blood Pressure 160/70 H 10/27/24 11:36 Pulse Oximetry 95 10/27/24 11:36 Oxygen Delivery Method Room Air 10/27/24 11:36 Temperature 98.2 F 10/27/24 11:36 Pulse Rate 74 10/27/24 11:36 Respiratory Rate 18 10/27/24 11:36 Blood Pressure 160/70 H 10/27/24 11:36 Pulse Oximetry 95 10/27/24 11:36 Oxygen Delivery Method Room Air 10/27/24 11:36 Medical Decision Making MDM Narrative Medical decision making narrative: X-rays are negative per radiologist. Velcro wrist splint applied, application checked by me and found to be appropriate, he is neurovascular intact. Treatment diagnosis and follow-up were discussed with the patient. He was recommended Tylenol. Differential Diagnosis Differential Diagnosis: Sprain, fracture Imaging Data Hand and wrist x-rays, right: Radiologist's impression: ITS Impressions Hand X-Ray 10/27/24 11:42 IMPRESSION: NO ACUTE BONY PROCESS. Impression dictated by: Neeraj Trevizo Jr., D.O. 10/27/2024 12:10 PM Dictation Location: [facility] Electronically authenticated by: [id number] Y Date: 10/27/2024 12:10 Wrist X-Ray 10/27/24 11:42 IMPRESSION: NO ACUTE BONY PROCESS. Impression dictated by: Neeraj Trevizo Jr., D.O. 10/27/2024 12:10 PM Dictation Location: [facility] Electronically authenticated by: [id number] Y Date: 10/27/2024 12:10 Discharge Plan Discharge Chief Complaint: Extremity Injury, Upper Clinical Impression: Right wrist sprain Patient Disposition: Home, Self-Care Time of Disposition Decision: 12:17 Condition: Good Mode of Transportation: Private Vehicle Prescriptions / Home Meds: No Action Eliquis 5 mg tablet 5 mg PO BID lisinopril 20 mg tablet 20 mg PO DAILY metformin 500 mg tablet extended release 24 hr 500 mg PO BID metoprolol succinate 25 mg tablet extended release 24 hr 25 mg PO DAILY cholecalciferol (vitamin D3) [Vitamin D3] 50 mcg (2,000 unit) capsule 2,000 unit PO DAILY meloxicam 15 mg tablet 15 mg PO DAILY atorvastatin 40 mg tablet 40 mg PO DAILY Ozempic 1 mg/dose (4 mg/3 mL) pen injector 1 mg SUBCUT .qweekly Patient Comments: SUNDAYS Print Language: Estonian Instructions: Wrist Sprain (ED) Referrals: Michael Plummer MD [Primary Care Provider, Family Practice] - 1 week
== END 2024-10-27 12:24 | disposition home or self-care (01) ==
PROVIDERS: Emergency Provider Emergency Medicine; PCP Family Medicine
DX: S63.501A Unspecified sprain of right wrist, initial encounter (principal); W18.39XA Other fall on same level, initial encounter; Z87.891 Personal history of nicotine dependence
CPT/HCPCS: 73110; 73130; 99283

== ENCOUNTER 2024-11-26 12:21 | Outpatient (OUT) | payer BC, SELFPAY ==
--- NOTE | 2024-11-26 12:45 | ECG_ITS ---
[facility] Test Date: 2024-11-26 Pat Name: ABBEY ROBERT Department: Room: - Gender: Male [employer]: : 1960 Requested By: [id number] Order Number: [id number] Reading MD: SHERRI GARCIA Measurements Intervals Dexter Rate: 127 P: [place]: QRS: 39 QRSD: 109 T: 67 QT: 286 QTc: 417 Interpretive Statements ATRIAL FIBRILLATION WITH RAPID VENTRICULAR RESPONSE INCOMPLETE RIGHT BUNDLE BRANCH BLOCK [90+ ms QRS DURATION, TERMINAL R IN V1/V2, 40+ ms S IN I/aVL/V4/V5/V6] ABNORMAL RHYTHM ECG Compared to ECG 12/24/2019 14:07:58 Incomplete right bundle-branch block now present Sinus rhythm no longer present T-wave abnormality no longer present Electronically Signed On 11-28-2024 15:49:32 EDT by SHERRI GARCIA
== END 2024-11-26 12:22 | disposition home or self-care (01) ==
LOC: CARD 12:21
PROVIDERS: PCP Family Medicine
DX: I48.91 Unspecified atrial fibrillation (principal)
CPT/HCPCS: 93005

== ENCOUNTER 2025-01-07 13:08 | Outpatient (OUT) | payer BC, SELFPAY ==
--- NOTE | 2025-01-07 13:13 | XR_ITS ---
[place] [id number] Patient Name: ABBEY ROBERT MRN: [id number] date: 1960 Sex: M Assigned Patient Location: RAD Current Patient Location: [facility] Accession/Order Number: [id number] Exam Date: 01/07/2025 13:20 Report Date: 01/07/2025 13:37 At the request of: JUDITH SPANGLER MD Procedure: XR knee RT 4V RIGHT KNEE - 4 views CLINICAL HISTORY: Pain In Right Knee COMPARISON: None FINDINGS: Small joint effusion. Mild degenerative changes without acute bony process. XR/XR knee RT 4V IMPRESSION: MILD DEGENERATIVE CHANGES WITHOUT ACUTE BONY PROCESS. Impression dictated by: Neeraj Trevizo Jr., D.OFabian 01/07/2025 1:37 PM Dictation Location: [place] [address] Electronically authenticated by: [id number] Y Date: 01/07/2025 13:37
--- OUTSIDE RECORDS SUMMARY | 2025-01-07 13:15 | XMS_ITS | CCD ---
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 Name Role Phone UNKNOWN, PROVIDER Admitting Unavailable UNKNOWN, PROVIDER Attending Unavailable MICHAEL SPANGLER Referring Unavailable NADERER, MICHAEL Primary Care Unavailable Donavon Morales Unavailable Michael Spangler Primary Care Provider [phone] CRYS, MICHAEL Primary Care Physician Donavon Morales Unavailable Michael Spangler Primary Care Provider SHAIKH Selwyn MERCEDES Admitting Unavailable MAGO, KLEIN H Attending Unavailable NADERER, DR MICHAEL Gregory Primary Care Unavailable NILL, DR OCAMPO Admitting Unavailable NILL, DR OCAMPO Attending Unavailable NADERER, DR MICHAEL Gregory Primary Care Unavailable NILL, DR OCAMPO Admitting Unavailable NILL, DR OCAMPO Attending Unavailable NADERER, DR MICHAEL Gregory Primary Care Unavailable NILL, DR OCAMPO Consulting Unavailable LANGTRUDY ZUNIGA Consulting Unavailable MCCORNACKRADHA Consulting Unavailable NILL, DR OCAMPO Admitting Unavailable NILL, DR OCAMPO Attending Unavailable NADERER, DR MICHAEL Gregory Primary Care Unavailable NADERER, DR MICHAEL Gregory Admitting Unavailable NADERER, DR MICHAEL Gregory Attending Unavailable NADERER, DR MICHAEL Gregory Primary Care Unavailable NADERER, DR MICHAEL Gregory Consulting Unavailable FAKATY, KLEIN H Admitting Unavailable MAGO, KLEIN H Attending Unavailable NADERER, DR MICHAEL Gregory Primary Care Unavailable WEST, DR EMBER Brambila Consulting Unavailable LUNDBERG, CLAUDIO Consulting Unavailable MAGO, H Consulting Unavailable NADERER, DR MICHAEL Gregory Admitting Unavailable NADERER, DR MICHAEL Gregory Attending Unavailable NADERER, DR MICHAEL Gregory Primary Care Unavailable NADERER, DR MICHAEL Gregory Consulting Unavailable Donavon Morales Unavailable Michael Spangler Primary Care Provider [phone] Terrence MACHUCA Attending Unavailable BRIGETTE, Terrence Mckeon Attending Unavailable Terrence MACHUCA Attending Unavailable Donavon Morales MD Unavailable Michael Spangler Primary Care Provider Michael Spangler MD Unavailable Michael Spangler MD Primary Care Provider [phone] Michael Spangler MD Primary Care Provider BLAYNE GUERIN Attending Unavailable NADERER, MICHAEL Attending Unavailable RUSHER, RADHA Gregory Attending Unavailable RUSHER, RADHA Gregory Attending Unavailable RUSHER, RADHA Gregory Attending Unavailable RUSHER, RADHA Gregory Attending Unavailable RUSHER, RADHA Gregory Attending Unavailable NADERER, MICHAEL Attending Unavailable RUSHER, RADHA Gregory Attending Unavailable Jessica Winter MD Unavailable Jessica Winter MD Unavailable JESSICA WINTER Referring Unavailable MICHAEL SPANGLER Primary Care Unavailable TSERING SAENZ Attending Unavailable JESSICA WINTER Referring Unavailable MICHAEL SPANGLER Primary Care Unavailable MICHAEL SPANGLER Primary Care Unavailable JESSICA WINTER Admitting Unavailable JESSICA WINTER Attending Unavailable JESSICA WINTER Referring Unavailable MICHAEL SPANGLER Primary Care Unavailable Allergies Allergy Classification Reported Allergen(s) Allergy Type Date of Onset Reaction(s) Facility (2 sources) Penicillins; 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: [PENICILLINS] Drug allergy (disorder) 8 [facility] Repository (5 sources) Penicillin; 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: [penicillin] Drug Allergy 9 Unknown (qualifier value) [facility] Surgery [place] (16 sources) Penicillins Drug Allergy 9 Other, Unknown [...] A DAY atorvastatin 40 mg oral tablet (16 sources) HMG-CoA Reductase Inhibitor Start: take 1 tablet by mouth once daily at bedtime atorvastatin (Lipitor) 40 MG tablet Indications: Type 2 diabetes mellitus with hyperglycemia, without long-term current use of insulin (HCC) TAKE 1 TABLET BY MOUTH EVERYDAY AT BEDTIME 90 tablet 1 08/06/2024 Active Start: 02-09-2024 take 1 tablet by bryon th at bedtime atorvastatin (Lipitor) 40 MG tablet Indications: Type 2 diabetes mellitus with hyperglycemia, without long-term current use of insulin (CMS/HCC) TAKE 1 TABLET BY MOUTH AT BEDTIME 90 tablet 1 02/09/2024 Active Start: 08-10-2023 take 1 tablet by bryon th at bedtime atorvastatin (Lipitor) 40 MG tablet Indications: Type 2 diabetes mellitus with hyperglycemia, without long-term current use of insulin (CMS/HCC) Take 1 tablet (40 mg) by mouth at bedtime 30 tablet 5 08/10/2023 Active Blood Glucose Monitoring Suppl (Blood Glucose Monitor System) w/Device kit (3 sources) Start: 08-07-2024 Blood Glucose Monitoring Suppl (Blood Glucose Monitor System) w/Device kit Indications: Type 2 diabetes mellitus with hyperglycemia, without long-term current use of insulin (CMS/HCC) 1 each Daily 1 kit 08/07/2024 Active Blood Glucose Monitoring Suppl (OneTouch Verio Reflect) w/Device kit (1 source) Start: 11-05-2024 Blood Glucose Monitoring Suppl (OneTouch Verio Reflect) w/Device kit Indications: Type 2 diabetes mellitus with hyperglycemia, without long-term current use of insulin (HCC) EVERY DAY 1 kit 11/05/2024 Active cholecalciferol 0.05 mg oral tablet (20 [...] daily. hydrOXYzine hydrochloride 25 mg oral tablet (13 sources) Antihistamine End: 12-05-2024 take 1 tablet by mouth every six hours as needed hydrOXYzine HCl (ATARAX) 25 mg tablet Take 25 mg by mouth four times a day as needed. 12/05/2024 Discontinued Comment on above: Take 25 mg by mouth four times a day as needed. lisinopril 20 mg oral tablet (20 sources) Angiotensin Converting Enzyme Inhibitor Start: 09-03-2020 take 1 tablet by mouth twice daily lisinopril 20 MG tablet Indications: Essential hypertension, benign TAKE 1 TABLET BY MOUTH TWICE A DAY 180 tablet 3 07/02/2024 Active Comment on above: Take 20 mg by mouth twice daily. meloxicam 15 mg oral tablet (1 source) Nonsteroidal Anti-inflammatory Drug Start: 09-07-2024 take 1 tablet by mouth once daily at mealtime meloxicam (Mobic) 15 MG tablet Indications: Plantar fasciitis of right foot Take 1 tablet (15 mg) by mouth Daily Take with food 30 tablet 3 09/07/2024 Active 24 hr metFORMIN hydrochloride 500 mg extended release oral tablet (20 sources) Biguanide Start: 04-05-2023 End: 02-20-2024 take 1 tablet by mouth twice daily metFORMIN XR (Glucophage-XR) 500 MG 24 hr tablet Indications: Type 2 diabetes mellitus with hyperglycemia (HCC) TAKE 1 TABLET BY MOUTH TWICE A [...] OZEMPIC 1 mg/dose (4 mg/3 mL) pen (13 sources) Start: 02-14-2023 OZEMPIC 1 mg/dose (4 [...] hyperglycemia, without long-term current use of insulin ([facility]) Inject 0.5 mg under the skin 1 (one) time per week 4 each 5 08/10/2023 Active semaglutide (Ozempic, 1 MG/DOSE,) 4 MG/3ML solution pen-injector (4 sources) Start: inject 1 mg by subcutaneous injection every week semaglutide (Ozempic, 1 MG/DOSE,) 4 MG/3ML solution pen-injector Indications: Type 2 diabetes mellitus with hyperglycemia, without long-term current use of insulin (HCC) Inject 1 mg under the skin 1 (one) time per week 1 each 11 08/07/2024 Active Start: 08-07-2024 inject 1 mg by subcu taneous injection every week semaglutide (Ozempic, 1 MG/DOSE,) 4 MG/3ML solution pen-injector Indications: Type 2 diabetes mellitus with hyperglycemia, without long-term current use of insulin (CMS/HCC) Inject 1 mg under the skin 1 (one) time per week 1 each 08/07/2024 Active Vitamin D3 2000 intl units [...] Problem Date Documented Date Episodic/Chronic Anxiety disorders (16 sources) Generalized anxiety disorder; 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: [Generalized anxiety disorder] Onset: 08-10-2023 08-10-2023 Chronic Cardiac dysrhythmias (20 sources) Atrial fibrillation; 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: [Unspecified atrial fibrillation] Onset: 08-14-2018 08-17-2018 Chronic Diabetes mellitus with complications (20 sources) Hyperglycemia due to type 2 diabetes mellitus; 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: [Type 2 diabetes mellitus with hyperglycemia] Onset: 08-10-2023 08-10-2023 Chronic Diabetes mellitus without complication (6 sources) Prediabetes; 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: [Prediabetes] Onset: 02-16-2022 Episodic Esophageal disorders (18 sources) Gastroesophageal reflux disease without esophagitis; 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: [Gastro-esophageal reflux disease without esophagitis] Onset: 08-10-2023 08-10-2023 Chronic Essential hypertension (20 sources) Essential (primary) hypertension; 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: [Essential hypertension] Onset: 10-12-2021 03-08-2023 Chronic Mycoses (4 sources) Onychomycosis due to dermatophyte ; 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: [Tinea unguium] 02-02-2024 Episodic Nutritional deficiencies (17 sources) Vitamin D deficiency, unspecified; 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: [Vitamin D deficiency] Onset: 08-20-2021 08-10-2023 Chronic Other aftercare (4 sources) Long-term current use of anticoagulant; 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] Onset: 09-01-2021 Episodic Other aftercare (2 sources) 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; 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: [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 USE ANTICOAGULANTS] Onset: 10-12-2021 Episodic Other aftercare (2 sources) Postoperative visit; [...] [Pain in left toe(s)] 02-02-2024 Episodic Other nervous system disorders (2 sources) Difficulty walking; 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: [Difficulty in walking, not elsewhere classified] 02-02-2024 Chronic Other nutritional; endocrine; and metabolic disorders (14 sources) Body mass index 30+ - obesity; 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: [Obesity, unspecified] Onset: 08-10-2023 09-03-2020 Chronic Other nutritional; endocrine; and metabolic disorders (4 sources) Obesity caused by energy imbalance; 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: [Class 1 obesity due to excess calories with serious comorbidity and body mass index (BMI) of 34.0 to 34.9 in adult] Onset: 08-10-2023 08-07-2024 Chronic Other skin disorders (2 sources) Dystrophia unguium; 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: [Nail dystrophy] 02-02-2024 Episodic Residual codes; unclassified (20 sources) Sleep apnea; 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: [Sleep apnea, unspecified] Onset: 08-14-2018 08-17-2018 Chronic Residual codes; unclassified (20 sources) Obstructive sleep apnea syndrome; 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: [Obstructive sleep apnea (adult) (pediatric)] Onset: 08-10-2023 Chronic Residual codes; unclassified (1 source) Sleep apnea, unspecified; 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: [SLEEP APNEA UNSPECIFIED] Onset: 10-12-2021 Chronic Residual codes; unclassified (1 source) Obstructive sleep apnea (adult) (pediatric); 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: [Obstructive sleep apnea syndrome] Onset: 08-17-2018 Chronic Spondylosis; intervertebral disc disorders; other back problems (1 source) Other spondylosis with radiculopathy, lumbar region; 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: [OTH SPONDYLS RADICULOPATHY LUMB RGN] Onset: 10-07-2021 Chronic Unclassified (1 source) LOW BACK PAIN, UNSPECIFIED; 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: [LOW BACK PAIN, UNSPECIFIED] Onset: 10-13-2021 Unclassified (1 source) Autogenerated Problem Onset: 11-29-2024 11-29-2024 Unclassified (1 source) Other persistent atrial fibrillation; 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: [Persistent atrial fibrillation (HCC)] Onset: 08-17-2018 Past or Other Problems Problem Classification Problem Date Documented Da te Episodic/Chronic Other aftercare (16 sources) Long-term current use of drug therapy; 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: [Other skilled nursing (current) drug therapy] Onset: 08-10-2023 08-10-2023 Episodic [...] Onset: 10-12-2021 Episodic Other connective tissue disease (16 sources) Cramp in lower limb; 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: [Cramp and spasm] Onset: 08-10-2023 08-10-2023 Episodic Other connective tissue disease (6 sources) Plantar fasciitis of right foot; 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: [Plantar fascial fibromatosis] Onset: 08-07-2024 08-07-2024 Episodic Other screening for suspected conditions (not [...] Test Name Value Interpretation Reference Range Facility ANES POSTPROC EVALon 025 ANES POSTPROC EVAL HNO ID: [id number] Author: MARISA DAUGHERTY MD Service: ? Author Type: Anesthesiologist Type: Anesthesia Postprocedure Evaluation Filed: 12/05/2024 16:03 Note Text: POST ANESTHESIA EVALUATION NOTE : 1960 Procedure Summary Date: 12/05/24 Room / Location: [address] [facility] Anesthesia Start: 1038 Anesthesia Stop: 1053 Procedure: CARDIOVERSION EXTERNAL ELECTIVE Diagnosis: Persistent atrial fibrillation (HCC) (Persistent atrial fibrillation (HCC) [I48.19]) Surgeons: Jessica Winter MD Responsible Provider: Marisa Daugherty MD Anesthesia Type: general ASA Status: 3 Anesthesia Type: general Airway Type: anesthesia mask Last Vitals Vitals Value Taken Time BP 103/70 12/05/24 11:43 Temp 12/05/24 16:03 Pulse 77 12/05/24 11:43 Resp 20 12/05/24 11:43 SpO2 95 % 12/05/24 11:43 Post Anesthesia Patient Status Patient Evaluation: bedside. Neurological Status: aware and responsive. Pulmonary Status: breathing comfortably on supplemental oxygen Airway Control: returned to baseline unsupported. Cardiovascular Status: stable. Pain Management: clinically adequate Postoperative Hydration: acceptable. Intraoperative Events: no significant anesthesia events Recommendation: continue current plan of care. Anesthesia Observations No Documentation SIGNATURE: Marisa Daugherty MD PATIENT NAME: Abbey Lowe DATE: December 05, 2024 TIME: 4:03 PM CSN: [id number] Normal [facility] ANES PRE-OPon 12-05-2024 ANES PRE-OP HNO ID: [id number] Author: MARISA DAUGHERTY MD Service: ? Author Type: Anesthesiologist Type: Anesthesia Preprocedure Evaluation Filed: 12/05/2024 10:40 Note Text: ANESTHESIOLOGY DAY OF SURGERY NOTE : 1960 Procedure Information Anesthesia Start Date/Time: 12/05/24 1038 Procedure: CARDIOVERSION EXTERNAL ELECTIVE Location: [address] [facility] Surgeons: Jessica Winter MD Estimated body mass index is 34.92 kg/m? as calculated from the following: Height as of an earlier encounter on 12/05/24: 180.3 cm (5' 11 ). Weight as of this encounter: 113.6 kg (250 lb 6.4 oz). Most recent hematocrit and potassium results: Hematocrit 46.2 03/18/2021 Potassium 4.3 12/05/2024 Relevant Problems ANESTHESIA (+) Sleep apnea CARDIO (+) Atrial fibrillation (HCC) PULMONARY (+) Sleep apnea I - PHYSICAL EVALUATION AIRWAY Patient intubated: No. Tracheostomy tube not present Mallampati: III. TM distance: >3 FB. Neck ROM: full ROM without neurological symptoms. Mouth openin FB. Short neck: no. Thick neck: no II - ANESTHESIA PLAN ASA Score: 3 Anesthetic Plan: general Airway type: anesthesia mask Monitoring Plan Monitoring plan: standard ASA. Post Procedure Analgesic Plan Postoperative analgesic plan: parenteral or oral opioids. Informed Consent Anesthetic risks, benefits, alternatives, personnel and consent discussed: yes. Patient / Responsible [employer] agrees to proceed: yes Patient / Surrogate agrees to blood products: blood products not planned Vitals Value Taken Time BP 120/88 12/05/24 08:43 Pulse 151 12/05/24 08:43 Resp 18 12/05/24 08:43 Temp 35.6 ?C (96.1 ?F) 12/05/24 08:43 SpO2 97 % 12/05/24 08:43 No current facility-administered medications on file as of 12/05/2024. Outpatient Medications as of 12/05/2024 Medication Sig - apixaban (ELIQUIS) 5 mg tab(s) Take 1 tablet by mouth two times a day. - metoprolol succinate ER (TOPROL XL) 25 mg 24 hr tablet take 1 tablet by mouth twice a day - OZEMPIC 1 mg/dose (4 mg/3 mL) pen one time a week. - metFORMIN (GLUCOPHAGE) 500 mg tablet Take 500 mg by mouth two times a day with meals. - cholecalciferol (VITAMIN D3) 50 mcg (2,000 unit) tablet Take 2,000 Units by mouth once daily. - lisinopril (ZESTRIL, PRINIVIL) 20 mg tablet Take 20 mg by mouth twice daily. I have interviewed and examined the patient. I have reviewed the medical record and/or the pre-anesthesia evaluation, pertinent labs, and test results. This contains updated information obtained within 48 hours of Surgery/Procedure. SIGNATURE: Marisa Daugherty MD PATIENT NAME: Abbey Lowe DATE: December 05, 2024 TIME: 10:38 AM CSN: [id number] [facility] CNOVon 12-05-2024 CNOV Office Visit (CARDMN ) ABBEY LOWE ([id number]) 1960 M Date Time Provider Department 12/05/24 7:30 AM TSERING SAENZ During your visit today, we recorded the following information about you: Pulse Blood pressure Weight Height 150/minute 143/89 110.2 kg 1.803 m Tsering Saenz APRN.CHEESE TESTER 12/05/2024 8:04 AM Signed [facility] [place] [facility] Department of Cardiovascular Medicine SECTION OF CARDIAC PACING and ELECTROPHYSIOLOGY OUTPATIENT VISIT DATE December 05, 2024 OUTPATIENT VISIT TYPE ESTABLISHED PRIMARY CARE PHYSICIAN: Michael Spangler (Luis) [address] [place] [address] CHIEF COMPLAINT: Atrial fibrillation HISTORY OF PRESENT ILLNESS: Mr. Lowe is a 64 year old male who presents today for follow-up visit for atrial fibrillation, planned for cardioversion. Established with Dr. Winter. Last seen in March 2023. The patient has a history of persistent AF refractory to treatment with Tikosyn. He underwent his first PVI in 11/2018. He developed recurrence of his arrhythmia in 11/2020 and had a redo PVI as part of the MAP AF in 03/2021. He had AF recurrence within the blanking period after this ablation and underwent cardioversion on 04/09/2021. He did well since 2021 until recently when in mid-November he developed AF. He is symptomatic with palpitations, diaphoresis, and mild fatigue, particularly when his heart rate increases. He also experiences dyspnea with fast walking. He denies any chest pain, pressure, lightheadedness, dizziness, or syncope. He describes his heart rate as feeling like he is running a marathon. He is scheduled for cardioversion today. He has been on Eliquis consistently for the past three weeks without missing doses. 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 metoprolol succinate ER (TOPROL XL) 25 mg 24 hr tablet take 1 tablet by mouth twice a day OZEMPIC 1 mg/dose (4 mg/3 mL) pen one time a week. metFORMIN (GLUCOPHAGE) 500 mg tablet Take 500 mg by mouth two times a day with meals. cholecalciferol (VITAMIN D3) 50 mcg (2,000 unit) tablet Take 2,000 Units by mouth once daily. lisinopril (ZESTRIL, PRINIVIL) 20 mg tablet Take 20 mg by mouth twice daily. REVIEW OF SYSTEMS: GENERAL: Negative for: Weight loss or gain, Fever or Chills, Weakness and Sleep difficulties. HEENT: Negative for: Headache, Impaired Vision, Glasses, Hearing Impairment, Ringing in Ears, Nosebleeds, Poor dental care, Bleeding Gums, Dentures NECK: Negative for: Swelling, Pain, Stiffness RESPIRATORY: Negative for: Cough, Blood in Sputum, Shortness of breath, Wheezing, Apnea GASTROINTESTINAL: Negative for: Trouble swallowing, Heartburn, Change in bowel habits, Blood in stool, Dark black stools MUSCULOSKELETAL: Negative for: Muscle or joint pain, Stiffness , Joint swelling NEUROLOGIC/PSYCHIATRIC : Negative for: Weakness, Paralysis, Numbness, Tingling, Tremor, Nervousness, Depressed mood, Memory loss SKIN: Negative for: Rashes, Itching HEMATOLOGICAL/LYMPHATI C: Negative for: Easy bruising , Easy bleeding ENDOCRINE: Negative for: Heat or cold intolerance, Excessive sweating, Frequent urination, Frequent thirst PHYSICAL EXAMINATION: BP 143/89 Pulse (!) 150 Ht 180.3 cm (5' 11 ) Wt 110.2 kg (243 lb) BMI 33.89 kg/m? General: Well appearing, in no acute distress, speaking in complete sentences. Neck: No jugular venous distention, no carotid bruits, carotids have a normal upstroke, no palpable thyromegaly. Lungs: Clear to auscultation bilaterally, no wheezing or rhonchi. Heart: IRRR/tachycardic Abdomen: Soft, nontender, bowel sounds normal, no palpable organomegaly, no bruits. Extremities: No peripheral edema . Grade 2/4 distal pulses bilaterally. Neuro: Oriented to person, place and time, alert, cooperative, gait coordinated. CARDIOVASCULAR MEDICINE TESTING: Last EKG Result Conclusion ECG COMPLETE Collected: 12/05/2024 7:11 AM (Preliminary result) Impression: ATRIAL FIBRILLATION WITH RAPID VENTRICULAR RE (more content not included)... Normal [facility] Comprehensive metabolic 2000 panelon 12-05-2024 Albumin [Mass/Vol] 4.0 g/dL Normal 3.9-4.9 [facility] Comment on above: Order Comment: Speci men Type: BLOOD SPECIMEN Ordering Facility: [facility] Address: [address] [place] [address] Performed By: #### 2 4323-8 #### [facility] CLIA [id number] [address] [place] [address] [place] ALP [Catalytic activity/Vol] 44 U/L Normal 38-113 [facility] Comment on above: Order Comment: Speci men Type: BLOOD SPECIMEN Ordering Facility: [facility] Address: [address] [place] [address] Performed By: #### 2 4323-8 #### [facility] CLIA [id number] [address] [place] [address] [place] ALT [Catalytic activity/Vol] 41 U/L Normal 10-54 [facility] Comment on above: Order Comment: Speci men Type: BLOOD SPECIMEN Ordering Facility: [facility] Address: [address] [place] [address] Performed By: #### 2 4323-8 #### [facility] CLIA [id number] [address] [place] [address] [place] Anion gap [Moles/Vol] 12 mmol/L Normal 8-15 [facility] Comment on above: Order Comment: Speci men Type: BLOOD SPECIMEN Ordering Facility: [facility] Address: [address] [place] [address] Performed By: #### 2 4323-8 #### [facility] CLIA [id number] [address] [place] [address] [place] AST [Catalytic activity/Vol] 25 U/L Normal 14-40 [facility] Comment on above: Order Comment: Speci men Type: BLOOD SPECIMEN Ordering Facility: [facility] Address: [address] [place] [address] Performed By: #### 2 4323-8 #### [facility] CLIA [id number] [address] [place] [address] [place] Bilirubin [Mass/Vol] 0.6 mg/dL Normal 0.2-1.3 [facility] Comment on above: Order Comment: Speci men Type: BLOOD SPECIMEN Ordering Facility: [facility] Address: [address] [place] [address] Performed By: #### 2 4323-8 #### [facility] CLIA [id number] [address] [place] [address] [place] Calcium [Mass/Vol] 9.0 mg/dL Normal 8.5-10.2 [facility] Comment on above: Order Comment: Speci men Type: BLOOD SPECIMEN Ordering Facility: [facility] Address: [address] [place] [address] Performed By: #### 2 4323-8 #### [facility] CLIA [id number] [address] [place], [place] [id number] [place] Chloride [Moles/Vol] 105 mmol/L Normal 98-107 [facility] Comment on above: Order Comment: Speci men Type: BLOOD SPECIMEN Ordering Facility: [facility] Address: [address] [place] [address] Performed By: #### 2 4323-8 #### [facility] CLIA [id number] [address] [place] [address] [place] CO2 [Moles/Vol] 25 mmol/L Normal 22-30 [facility] Comment on above: Order Comment: Speci men Type: BLOOD SPECIMEN Ordering Facility: [facility] Address: [address] [place] [address] Performed By: #### 2 4323-8 #### [facility] CLIA [id number] [address] [place] [address] [place] Creatinine [Mass/Vol] 1.00 mg/dL Normal 0.73-1.22 [facility] Comment on above: Order Comment: Speci men Type: BLOOD SPECIMEN Ordering Facility: [facility] Address: [address] [place] [address] Performed By: #### 2 4323-8 #### [facility] CLIA [id number] [address] [place] [address] [place] eGFRcr SerPlBld CKD-EPI 2020 85 mL/min/1.73m??? Normal >=60 [facility] Comment on above: Order Comment: Speci men Type: BLOOD SPECIMEN Ordering Facility: [facility] Address: [address] [place] [address] Result Comment: Renetta mated Glomerular Filtration Rate (eGFR) is calculated using the 2020 CKD-EPI creatinine equation. This equation utilizes serum creatinine, sex, and age as parameters. The creatinine assay has traceable calibration to isotope dilution-mass spectrometry. Refer to KDIGO guidelines for clinical interpretation. In patients with unstable renal function, e.g. those with acute kidney injury, the eGFR may not accurately reflect actual GFR. Performed By: #### 2 4323-8 #### [facility] CLIA [id number] [address] [place] [address] [place] Glucose [Mass/Vol] 143 mg/dL High 74-99 [facility] Comment on above: Order Comment: Speci men Type: BLOOD SPECIMEN Ordering Facility: [facility] Address: [address] [place] [address] Result Comment: The [place] Diabetes Association (ADA) provides guidance for cutoff [...] Standards of Medical Care in Diabetes 2016, [place] [employer]. Diabetes Care. 2016.39(Suppl 1). Performed By: #### 2 4323-8 #### [facility] CLIA [id number] [address] [place] [address] [place] Potassium [Moles/Vol] 4.3 mmol/L Normal 3.7-5.1 [facility] Comment on above: Order Comment: Speci men Type: BLOOD SPECIMEN Ordering Facility: [facility] Address: [address] [place] [address] Performed By: #### 2 4323-8 #### [facility] CLIA [id number] [address] [place] [address] [place] Protein [Mass/Vol] 6.1 g/dL Low 6.3-8.0 [facility] Comment on above: Order Comment: Speci men Type: BLOOD SPECIMEN Ordering Facility: [facility] Address: [address] [place] [address] Performed By: #### 2 4323-8 #### [facility] CLIA [id number] [address] [place] [address] [place] Sodium [Moles/Vol] 142 mmol/L Normal 136-144 [facility] Comment on above: Order Comment: Speci men Type: BLOOD SPECIMEN Ordering Facility: [facility] Address: [address] [place] [address] Performed By: #### 2 4323-8 #### [facility] CLIA [id number] [address] [place] [address] [place] Urea nitrogen [Mass/Vol] 23 mg/dL Normal 9-24 [facility] Comment on above: Order Comment: Speci men Type: BLOOD SPECIMEN Ordering Facility: [facility] Address: [address] [place] [address] Performed By: #### 2 4323-8 #### [facility] CLIA [id number] [address] [place] [address] [place] ECG COMPLETEon 12-05-2024 ECG COMPLETE Ventricular Rate : 7 5 BPM Atrial Rate : 75 BPM P-R Interval : 182 ms QRS Duration : 96 ms Q-T Interval : 378 ms QTC Calculation(Bazett) : 422 ms Calculated P [place] : 68 degrees Calculated R [place] : 41 degrees Calculated T [place] : 58 degrees NORMAL SINUS RHYTHM NORMAL ECG Confirmed by TITA WALDEN MD ([id number]) on 12/31/2024 9:09:13 PM NAME : ABBEY LOWE PID : [id number] : 1960 Gender : Male Race : ORD : [id number] Procedure Date : Dec 05 2024 11:02:54 Edit Date : Dec 31 2024 21:09:19 Diagnosis: NORMAL SINUS RHYTHM NORMAL ECG Confirmed by TITA WALDEN MD ([id number]) on 12/31/2024 9:09:13 PM Test Reason : Post-OP Location : 23 : [facility]022 Overread By : TITA WALDEN MD Edited By : TITA WALDEN MD Referred By : , Acquired by : [id number], Normal [facility] HISTORY PHYSICALon HISTORY PHYSICAL HNO ID: [id number] Author: TSERING SAENZ APRN.JOHNNA Service: ? Author Type: Nurse Practitioner Type: H&P Filed: 12/05/2024 08:04 Note Text: [facility] [place] Josi Apodaca Department of Cardiovascular Medicine SECTION OF CARDIAC PACING and ELECTROPHYSIOLOGY OUTPATIENT VISIT DATE December 05, 2024 OUTPATIENT VISIT TYPE ESTABLISHED PRIMARY CARE PHYSICIAN: Michael Spangler ([facility]) [address] [place] [address] CHIEF COMPLAINT: Atrial fibrillation HISTORY OF PRESENT ILLNESS: Mr. Lowe is a 64 year old male who presents today for follow-up visit for atrial fibrillation, planned for cardioversion. Established with Dr. Winter. Last seen in March 2023. The patient has a history of persistent AF refractory to treatment with Tikosyn. He underwent his first PVI in 11/2018. He developed recurrence of his arrhythmia in 11/2020 and had a redo PVI as part of the MAP AF in 03/2021. He had AF recurrence within the blanking period after this ablation and underwent cardioversion on 04/09/2021. He did well since 2021 until recently when in mid-November he developed AF. He is symptomatic with palpitations, diaphoresis, and mild fatigue, particularly when his heart rate increases. He also experiences dyspnea with fast walking. He denies any chest pain, pressure, lightheadedness, dizziness, or syncope. He describes his heart rate as feeling like he is running a marathon. He is scheduled for cardioversion today. He has been on Eliquis consistently for the past three weeks without missing doses. 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 metoprolol succinate ER (TOPROL XL) 25 mg 24 hr tablet take 1 tablet by mouth twice a day OZEMPIC 1 mg/dose (4 mg/3 mL) pen one time a week. metFORMIN (GLUCOPHAGE) 500 mg tablet Take 500 mg by mouth two times a day with meals. cholecalciferol (VITAMIN D3) 50 mcg (2,000 unit) tablet Take 2,000 Units by mouth once daily. lisinopril (ZESTRIL, PRINIVIL) 20 mg tablet Take 20 mg by mouth twice daily. REVIEW OF SYSTEMS: GENERAL: Negative for: Weight loss or gain, Fever or Chills, Weakness and Sleep difficulties. HEENT: Negative for: Headache, Impaired Vision, Glasses, Hearing Impairment, Ringing in Ears, Nosebleeds, Poor dental care, Bleeding Gums, Dentures NECK: Negative for: Swelling, Pain, Stiffness RESPIRATORY: Negative for: Cough, Blood in Sputum, Shortness of breath, Wheezing, Apnea GASTROINTESTINAL: Negative for: Trouble swallowing, Heartburn, Change in bowel habits, Blood in stool, Dark black stools MUSCULOSKELETAL: Negative for: Muscle or joint pain, Stiffness , Joint swelling NEUROLOGIC/PSYCHIATRIC : Negative for: Weakness, Paralysis, Numbness, Tingling, Tremor, Nervousness, Depressed mood, Memory loss SKIN: Negative for: Rashes, Itching HEMATOLOGICAL/LYMPHATI C: Negative for: Easy bruising , Easy bleeding ENDOCRINE: Negative for: Heat or cold intolerance, Excessive sweating, Frequent urination, Frequent thirst PHYSICAL EXAMINATION: BP 143/89 Pulse (!) 150 Ht 180.3 cm (5' 11 ) Wt 110.2 kg (243 lb) BMI 33.89 kg/m? General: Well appearing, in no acute distress, speaking in complete sentences. Neck: No jugular venous distention, no carotid bruits, carotids have a normal upstroke, no palpable thyromegaly. Lungs: Clear to auscultation bilaterally, no wheezing or rhonchi. Heart: IRRR/tachycardic Abdomen: Soft, nontender, bowel sounds normal, no palpable organomegaly, no bruits. Extremities: No peripheral edema . Grade 2/4 distal pulses bilaterally. Neuro: Oriented to person, place and time, alert, cooperative, gait coordinated. CARDIOVASCULAR MEDICINE TESTING: Last EKG Result Conclusion ECG COMPLETE Collected: 12/05/2024 7:11 AM (Preliminary result) Impression: ATRIAL FIBRILLATION WITH RAPID VENTRICULAR RESPONSE NONSPECIFIC ST ABNORMALITY ABNORMAL ECG IMPRESSION: Mr. Lowe is a 64 year old male who presents today for follow-up visit for atrial fibrillation, planned for cardioversion. Established with Dr. Winter. Last seen in March 2023. The patient has a (more content not included)... Normal [facility] CNPNon 11-29-2024 CNPN Telephone (CARDMN) ABBEY LOWE ([id number]) 1960 M Date Time Provider Department 11/29/24 JESSICA WINTER CARDMN During your visit today, we recorded the following information about you: Yara Sutton 11/29/2024 12:20 PM Signed Received EKG. This has been uploaded into Haroon Wong RN 11/29/2024 4:07 PM Signed EKG received confirming that patient remains in AF, has been scheduled for DCC on 12/05/24. Haroon Barber RN Allergies As of Date: 11/29/2024 Noted Allergy Reaction PENICILLIN 07/18/2018 16 - Unknown Date Reviewed: 03/08/2023 Reviewed by: Miri Cunha RN - Fully Assessed Reason for Visit: Received Outside Medical Records [3572] Cmt: EKG Prescriptions as of 11/29/2024 - apixaban (ELIQUIS) 5 mg tab(s) Take 1 tablet by mouth two times a day. - metoprolol succinate ER (TOPROL XL) 25 [...] twice daily. Problem List As Of Date 11/29/2024 Noted Resolved Atrial fibrillation (HCC) [I48.91] 08/14/2018 Sleep apnea [G47.30] 08/14/2018 Left atrial thrombus [I51.3] 03/04/2018 IRB 20-461 MAP AF PI: Dr. Shannon Dozier [Z00.6]03/18/2021 Encounter Status:Closed by HAROON BARBER on 11/29/24 [facility] 11-28-2024 CNPN Telephone (EPSMN) ABBEY LOWE ([id number]) 1960 M Date Time Provider Department 11/28/24 JESSICA WINTER EPSMN During your visit today, we recorded the following information about you: Monica Daniel RN 11/28/2024 2:40 PM Signed ----- Message from Haroon King RN sent at 11/27/2024 3:49 PM EDT ----- Regarding: Please schedule patient for DCC Please schedule patient for DCC. Timeframe: now Date of last HANDP: Needs scheduled, would like DCC same day Three weeks uninterrupted anticoagulation: Yes, on eliquis with no missed doses in the last 3 weeks RYANN needed: No Special instructions: None Haroon Barber RN November 27, 2024 3:49 PM Monica Daniel RN 11/28/2024 2:41 PM Signed Please schedule patient for an EKG and OPD and we will arrange for DCC the same day. RONALD Bhardwaj Heather, RN 11/28/2024 3:48 PM Signed Pt noted to be scheduled for an EKG and OPD on 12/05/24. Arranging DCC for the same day. Monica Daniel RN Allergies As of Date: 11/28/2024 Noted Allergy Reaction PENICILLIN 07/18/2018 16 - Unknown Date Reviewed: 03/08/2023 Reviewed by: Miri Cunha RN - Fully Assessed Reason for Visit: Appointment [186] Cmt: Cardioversion Primary Visit Diagnosis:Persistent atrial fibrillation (HCC) [I48.19] Order(s):ECG COMPLETE [ECG01] Order #: [id number] FUTURE Prescriptions as of 11/28/2024 - apixaban (ELIQUIS) 5 mg tab(s) Take 1 tablet by mouth two times a day. - metoprolol succinate ER (TOPROL XL) 25 [...] twice daily. Problem List As Of Date 11/28/2024 Noted Resolved Atrial fibrillation (HCC) [I48.91] 08/14/2018 Sleep apnea [G47.30] 08/14/2018 Left atrial thrombus [I51.3] 03/04/2018 IRB 20-461 MAP AF PI: Dr. Shannon Dozier [Z00.6]03/18/2021 Encounter Status:Closed by MONICA DANIEL RN on 11/28/24 [facility] ECG 12-LEADon 11-28-2024 [place] [address] Electrocardiograph Report Signed Patient: ABBEY LOWE MR#: [id number] : 1960 Acct:[id number] Age/Sex: 64 / M ADM Date: 11/26/24 Loc: CARD Attending Dr: Jessica-Staff Physician Guzman Ordering Physician: Donald Blas M.D. 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: : 1960 Requested By: [id number] Order Number: [id number] Reading MD: REBEKAH ADDISON Measurements Intervals [place] Rate: 127 P: IA: QRS: 39 QRSD: 109 T: 67 QT: 286 QTc: 417 Interpretive Statements ATRIAL FIBRILLATION WITH RAPID VENTRICULAR RESPONSE INCOMPLETE RIGHT BUNDLE BRANCH BLOCK [90+ ms QRS DURATION, TERMINAL R IN V1/V2, 40+ ms S IN I/aVL/V4/V5/V6] ABNORMAL RHYTHM ECG Compared to ECG 12/24/2019 14:07:58 Incomplete right bundle-branch block now present Sinus rhythm no longer present T-wave abnormality no longer present Electronically Signed On 11-28-2024 15:49:32 EDT by REBEKAH ADDISON Dictated By: Rebekah Addison M.D. Signed By: 11/28/24 1549 11/28/24 1549 DD/ 1050 TD/TT: Towel Cabinet Repairer: [facility], Radiologist, - 11/28/2024 [place] [address] Electrocardiograph Report Signed Patient: ABBEY LOWE MR#: [id number] : 1960 Acct:[id number] Age/Sex: 64 / M ADM Date: 11/26/24 Loc: CARD Attending Dr: ParisStaff Physician Guzman Ordering Physician: Donald Blas M.D. Date of Service: 11/26/24 Procedure(s): ECG 12 lead Accession Number(s): [id number] cc: [facility] Test Date: 2024-11-26 Pat Name: ABBEY LOWE Department: Room: - Gender: Male Learning And Development Specialist: : 1960 Requested By: [id number] Order Number: [id number] Reading MD: REBEKAH ADDISON Measurements Intervals [place] Rate: 127 P: IA: QRS: 39 QRSD: 109 T: 67 QT: 286 QTc: 417 Interpretive Statements ATRIAL FIBRILLATION WITH RAPID VENTRICULAR RESPONSE INCOMPLETE RIGHT BUNDLE BRANCH BLOCK [90+ ms QRS DURATION, TERMINAL R IN V1/V2, 40+ ms S IN I/aVL/V4/V5/V6] ABNORMAL RHYTHM ECG Compared to ECG 12/24/2019 14:07:58 Incomplete right bundle-branch block now present Sinus rhythm no longer present T-wave abnormality no longer present Electronically Signed On 11-28-2024 15:49:32 EDT by REBEKAH ADDISON Dictated By: Rebekah Addison M.D. Signed By: 11/28/24 1549 11/28/24 1549 DD/ 1050 TD/TT: Towel Cabinet Repairer: [employer] ECG 12-LEADOrdered By: [employer] [facility] on 11-28-2024 [employer] Work Phone: Stacie 11-26-2024 [facility] Telephone (CARDMN) ABBEY LOWE ([id number]) 1960 M Date Time Provider Department 11/26/24 JESSICA WINTER During your visit today, we recorded the following information about you: Yara Sutton 11/26/2024 11:16 AM Signed Patients is calling. is back in AFib and would like to get an EKG done. Apt in Mar. Order faxed to [facility] at [phone] Yara Sutton 11/26/2024 3:09 PM Signed EKG has been sent to the office. Patient would like some guidance. This has been scanned into Haroon Wong RN 11/27/2024 3:49 PM Signed Returned call to patient and . Patient reports episode has been ongoing for 2 days, first recurrence since last DCC in 04/2021 while in the blanking period. Patient advised that Dr. Winter recommends DCC, if recurrence, should consider ablation. Patient agreeable, on eliquis, tolerating with no missed doses in the last 3 weeks. Advised of need to be seen by a provider within 30 days of any procedure. Informed patient that he would be scheduled for clinic visit with [facility] same day. He will need to bring a otr owner operator truck driver and be NPO for at least 8 hours prior. Patient verbalized understanding, [facility] request sent. Haroon Barber RN Allergies As of Date: 11/26/2024 Noted Allergy Reaction PENICILLIN 07/18/2018 16 - Unknown Date Reviewed: 03/08/2023 Reviewed by: Miri Cunha RN - Fully Assessed Reason for Visit: Patient Update [1234] Cmt: Back in AFib Prescriptions as of 11/27/2024 - apixaban (ELIQUIS) 5 mg tab(s) Take 1 tablet by mouth two times a day. - metoprolol succinate ER (TOPROL XL) 25 [...] twice daily. Problem List As Of Date 11/26/2024 Noted Resolved Atrial fibrillation (HCC) [I48.91] 08/14/2018 Sleep apnea [G47.30] 08/14/2018 Left atrial thrombus [I51.3] 03/04/2018 IRB 20-461 [facility] AF PI: Dr. Shannon Dozier [Z00.6]03/18/2021 Encounter Status:Closed by YARA SUTTON on 11/26/24 Normal [facility] ECG 12-LEADon 11-26-2024 Radiology Study observation (narrative) [facility] ALL CBC WITH AUTO DIFFon BASOPHILS ABSOLUTE AUTO 0.1 [facility] Basophils/100 WBC (Bld) 0.8 % 0.2 - 2.0 % [facility] Eosinophils/100 WBC (Bld) 2.7 % 0.9 - 7.0 % [facility] Erythrocyte distribution width (RBC) [Ratio] 13.4 % 11.0 - 15.0 % [facility] Hematocrit (Bld) [Volume fraction] 45.1 % 42.0 - 54.0 % [facility] Hemoglobin (Bld) [Mass/Vol] 14.8 g/dL 14.0 - 18.0 g/dL [facility] IMMATURE GRANULOCYTES ABS AUTO 0.02 [facility] Immature granulocytes/100 WBC (Bld) 0.3 % 0.0 - 0.5 % [facility] Interpretation and review of laboratory results Abnormal [facility] LYMPHOCYTES ABSOLUTE AUTO 1.8 [facility] Lymphocytes/100 WBC (Bld) 28 % 20.5 - 60.0 % [facility] MCH (RBC) [Entitic mass] 27.7 pg 25.9 - 34.0 pg [facility] MCHC (RBC) [Mass/Vol] 32.8 g/dL 29.9 - 35.2 g/dL [facility] MCV (RBC) [Entitic vol] 84.3 fL 80.0 - 94.0 fL [facility] MONOCYTES ABSOLUTE AUTO 0.6 [facility] Monocytes/100 WBC (Bld) 8.8 % 1.7 - 12.0 % [facility] NEUTROPHILS ABSOLUTE AUTO 3.9 [facility] Neutrophils/100 WBC (Bld) 59.4 % 43.0 - 75.0 % [facility] Platelet mean volume (Bld) [Entitic vol] 9.2 fL Low 9.5 - 13.5 fL [facility] EO # 0.2 [facility] PLT 182 [facility] RBC 5.35 [facility] WBC 6.6 [facility] Follow-Upon 05-30-2024 Follow-Up [id number] Abbey Lowe 1960 M Date Provider Department Center 05/30/2024 202-BLAYNE GUERIN [facility] SLEEP [facility] Family History Problem Relation Age of Onset Heart disease Mother Diabetes Father Hypothyroidism Father Heart disease Father COPD Brother Diabetes Brother Family Status - Relation Status Age at Mother Father Brother Level of Service:41644 [place] OFFICE/OUTPATIENT ESTABLISHED LOW MDM 20 MIN Reason for Visit and Comments: Sleep Apnea [348] - 1 year follow up. Machine is working well and sleeping great. [facility] Stacie 05-21-2024 CNPN Telephone (CARDMN) ABBEY LOWE ([id number]) 1960 M Date Time Provider Department 05/21/24 JESSICA WINTER CARDCO During your visit today, we recorded the following information about you: Yara Sutton 05/21/2024 2:36 PM Signed May 21, 2024 Patient Contact Number: [phone] (home) [phone] (cell) Patient last seen within the last year No Reason For Call: Other Issue: Patients is calling. They will be traveling to [place] and was wondering if making such a long travel that Mr. Lowe should wear compression socks. Please call to advise. Haroon Atkins, RONLAD 05/21/2024 3:24 PM Signed Returned call to [...] Fully Assessed Reason for Visit: Patient Question [4917] Prescriptions as of 05/21/2024 - metoprolol succinate [...] 03/04/2018 IRB 20-461 MAP AF PI: Dr. Shanonn Dozier [Z00.6]03/18/2021 Encounter Status:Closed by HAROON BARBER on 05/21/24 Normal [facility] MLR HEMOGLOBIN A1Con 024 Glucose [Mass/Vol] 166 mg/dL [facility] HbA1c (Bld) [Mass fraction] 7.4 % High 4.5 - 6.2 % [facility] Comment on above: ADA RECOMMENDED LIMI T 4.0 - 6.0 ADA THERAPEUTIC TARGET < 7.0 ACTION SUGGESTED > 7.0 Interpretation and review of laboratory results Abnormal [facility] Reminderson 11-17-2022 Reminders - From: Taylor Bonner LPN To: N - Clinical; Sent: 11/17/2022 09:49:20 EDT Show up: 09/21/2027 07:00:00 EDT Subject: colonoscopy recall Due Date/Time: 10/21/2027 07:00:00 EDT Reminder/Recall Patient due for surveillance colonoscopy 10/21/2027. Normal [facility] Pathology Noteon 10-25-2022 Pathology Note [id number]#1.0 0CD:127 Normal [facility] Outside Colonoscopyon 2022 Outside Colonoscopy [id number]#1.0 0CD:127 Normal [facility] Pre-Certification Formon Pre-Certification Form [id number]#1. 00CD:127 [facility] Consent for Procedure/Surger yon 09-23-2022 Consent for Procedure/Surgery [id number] CD:127 [facility] Ambulatory Visit Summaryon 0 09-22-2022 Ambulatory Visit Summary ABBEY LOWE :1960 Visit Date:09/22/2022 Ambulatory Visit Instructions Your [...] of colon Tubulovillous adenoma of colon Normal [facility] GLYCOHEMOGLOBIN A1Con 2021 ADA RECOMMENDATION SEE BELOW Normal [facility] Comment on above: Result Comment: ADA RECOMMENDED LIMIT 4.0 - 6.0 ADA THERAPEUTIC TARGET < 7.0 ACTION SUGGESTED > 7.0 Performed By: #### A 1C #### [facility] [address] [address] [address] Neelima Bansal Glucose [Mass/Vol] 186 mg/dL Normal [facility] Comment on above: Performed By: #### A 1C #### [facility] [address] [place] [address] Dr. Neelima Bansal HbA1c (Bld) [Mass fraction] 8.1 % Critically high 4.5-6.2 [facility] Comment on above: Performed By: #### A 1C #### [facility] [address] [place] [address] Dr. Neelima Bansal XR LSPINE 2_3 VIEWSon [...] EMBER LOPEZ Date: 2021-10-01 21:09 Normal [facility] CBC AUTO DIFFon 08-17-2021 BASO # 0.0 103/ul Normal 0.0-0.1 [facility] Comment on above: Performed By: #### A 1C #### [facility] [address] [place] [address] Dr. Neelima Bansal Basophils/100 WBC (Bld) 0.6 % Normal 0.2-2.0 [facility] Comment on above: Performed By: #### A 1C #### [facility] [address] [place] [address] Dr. Neelima Bansal EO # 0.2 103/ul Normal 0.0-0.7 [facility] Comment on above: Performed By: #### A 1C #### [facility] [address] [place] [address] Dr. Neelima Bansal Eosinophils/100 WBC (Bld) 2.3 % Normal 0.9-7.0 [facility] Comment on above: Performed By: #### A 1C #### [facility] [address] [place] [address] Dr. Neelima Bansal Erythrocyte distribution width (RBC) [Ratio] 13.6 % Normal 11.0-15.0 [facility] Comment on above: Performed By: #### A 1C #### [facility] [address] [place] [address] Dr. Neelima Bansal Hematocrit (Bld) [Volume fraction] 44.6 % Normal 42.0-54.0 [facility] Comment on above: Performed By: #### A 1C #### [facility] [address] [place] [address] Dr. Neelima Bansal Hemoglobin (Bld) [Mass/Vol] 14.6 g/dL Normal 14.0-18.0 [facility] Comment on above: Performed By: #### A 1C #### [facility] [address] [place] [address] Dr. Neelima Bansal IG # 0.01 10e3/ul Normal 0.00-0.03 [facility] Comment on above: Performed By: #### A 1C #### [facility] [address] [place] [address] Dr. Neelima Bansal IG % 0.2 % Normal 0.0-0.5 [facility] Comment on above: Performed By: #### A 1C #### [facility] [address] [place] [address] Dr. Neelima Bansal LYMPH # 1.7 103/ul Normal 1.2-3.8 [facility] Comment on above: Performed By: #### A 1C #### [facility] [address] [place] [address] Dr. Neelima Bansal Lymphocytes/100 WBC (Bld) 26.9 % Normal 20.5-60.0 [facility] Comment on above: Performed By: #### A 1C #### [facility] [address] [place] [address] Dr. Neelima Bansal MANUAL DIFF REQ NO Normal [facility] Comment on above: Performed By: #### A 1C #### [facility] [address] [place] [address] Dr. Neelima Bansal MCH (RBC) [Entitic mass] 28.2 pg Normal 25.9-34.0 [facility] Comment on above: Performed By: #### A 1C #### [facility] [address] [place] [address] Dr. Neelima Bansal MCHC (RBC) [Mass/Vol] 32.7 g/dL Normal 29.9-35.2 [facility] Comment on above: Performed By: #### A 1C #### [facility] [address] [place] [address] Dr. Neelima Bansal MCV (RBC) [Entitic vol] 86.1 fL Normal 80.0-94.0 [facility] Comment on above: Performed By: #### A 1C #### [facility] [address] [place] [address] Dr. Neelima Bansal MONO # 0.6 103/ul Normal 0.3-0.8 [facility] Comment on above: Performed By: #### A 1C #### [facility] [address] [place] [address] Dr. Neelima Bansal Monocytes/100 WBC (Bld) 9.8 % Normal 1.7-12.0 [facility] Comment on above: Performed By: #### A 1C #### [facility] [address] [place] [address] Dr. Neelima Bansal NEUT # 3.9 103/ul Normal 1.4-6.5 [facility] Comment on above: Performed By: #### A 1C #### [facility] [address] [address] [address] Neelima Bansal Neutrophils/100 WBC (Bld) 60.2 % Normal 43.0-75.0 [facility] Comment on above: Performed By: #### A 1C #### [facility] [address] [address] [address] Neelima Bansal Platelet mean volume (Bld) [Entitic vol] 9.4 fL Critically low 9.5-13.5 [facility] Comment on above: Performed By: #### A 1C #### [facility] [address] [address] [address] Neelima Bansal PLT 198 103/ul Normal 150-450 [facility] Comment on above: Performed By: #### A 1C #### [facility] [address] [place] [address] Dr. Neelima Bansal RBC 5.18 106/ul Normal 4.70-6.10 [facility] Comment on above: Performed By: #### A 1C #### [facility] [address] [address] [address] Neelima Bansal WBC 6.4 103/ul Normal 4.0-11.0 [facility] Comment on above: Performed By: #### A 1C #### [facility] [address] [place] [address] Dr. Neelima Bansal GLYCOHEMOGLOBIN A1Con 2021 ADA RECOMMENDATION SEE BELOW Normal [facility] Comment on above: Result Comment: ADA RECOMMENDED LIMIT 4.0 - 6.0 ADA THERAPEUTIC TARGET < 7.0 ACTION SUGGESTED > 7.0 Performed By: #### A 1C #### [facility] [address] [place] [address] Dr. Neelima Bansal Glucose [Mass/Vol] 146 mg/dL Normal [facility] Comment on above: Performed By: #### A 1C #### [facility] [address] [place] [address] Dr. Neelima Bansal HbA1c (Bld) [Mass fraction] 6.7 % Critically high 4.5-6.2 [facility] Comment on above: Performed By: #### A 1C #### [facility] [address] [address] [address] Neelima Bansal LIPID PROFILEon 08-17-2021 CHOL-HDL RATIO NORM SEE BELOW Normal [facility] Comment on above: Result Comment: 3.3 - 4.4 LOW RISK 4.4 - 7.1 AVERAGE RISK 7.1 - 11.0 MODERATE RISK >11.0 HIGH RISK Performed By: #### L IVER, LIPID, BMP, TSH #### [facility] [address] [address] [address] Neelima Bansal Cholesterol [Mass/Vol] 161 mg/dL Normal <=200 [facility] Comment on above: Performed By: #### L IVER, LIPID, BMP, TSH #### [facility] [address] [address] [address] Neelima Bansal Cholesterol in HDL [Mass/Vol] 29 mg/dL Critically low 40-60 [facility] Comment on above: Performed By: #### L IVER, LIPID, BMP, TSH #### [facility] [address] [address] [address] Neelima Bansal Cholesterol in LDL [Mass/Vol] 98.8 mg/dL Normal [facility] Comment on above: Performed By: #### L IVER, LIPID, BMP, TSH #### [facility] [address] [address] [address] Neelima Bansal Cholesterol.total/Ch olesterol in HDL [Mass ratio] 5.6 {ratio} Normal [facility] Comment on above: Performed By: #### L IVER, LIPID, BMP, TSH #### [facility] [address] [address] [address] Neelima Bansal HDL NORMAL > or = 60 mg/dl - LO W CARDIOVASCULAR RISK <40 mg/dl - HIGH CARDIOVASCULAR RISK Normal [facility] Comment on above: Performed By: #### L IVER, LIPID, BMP, TSH #### [facility] [address] [address] [address] Neelima Bansal LDL CALC NORMAL SEE BELOW Normal [facility] Comment on above: Result Comment: <100 mg/dl OPTIMAL 100 - 129 mg/dl NEAR OR ABOVE OPTIMAL 130 - 159 mg/dl BORDERLINE HIGH 160 - 189 mg/dl HIGH >190 mg/dl VERY HIGH Performed By: #### L IVER, LIPID, BMP, TSH #### [facility] [address] [address] [address] Neeilma Bansal Triglyceride [Mass/Vol] 166 mg/dL Critically high <=150 [facility] Comment on above: Performed By: #### L IVER, LIPID, BMP, TSH #### [facility] [address] [address] [address] Neelima Bansal VLDL CALC 33.2 mg/dL Normal [facility] Comment on above: Performed By: #### L IVER, LIPID, BMP, TSH #### [facility] [address] [address] [address] Neelima Bansal LIVER PROFILEon 08-17-2021 Albumin [Mass/Vol] 3.7 g/dL Normal 3.4-5.0 [facility] Comment on above: Performed By: #### L IVER, LIPID, BMP, TSH #### [facility] [address] [address] [address] Neelima Bansal Albumin/Globulin [Mass ratio] 1.1 {ratio} Normal [facility] Comment on above: Performed By: #### L IVER, LIPID, BMP, TSH #### [facility] [address] [address] [address] Neelima Bansal ALP [Catalytic activity/Vol] 42 U/L Critically low 46-116 [facility] Comment on above: Performed By: #### L IVER, LIPID, BMP, TSH #### [facility] [address] [address] [address] Neelima Bansal ALT [Catalytic activity/Vol] 58 U/L Normal 16-63 [facility] Comment on above: Performed By: #### L IVER, LIPID, BMP, TSH #### [facility] [address] [address] [address] Neelima Bansal AST [Catalytic activity/Vol] 24 U/L Normal 15-37 [facility] Comment on above: Performed By: #### L IVER, LIPID, BMP, TSH #### [facility] [address] [place] [address] Dr. Neelima Bansal BILI, CONJUGATED 0.1 mg/dL Normal 0.0-0.2 [facility] Comment on above: Performed By: #### L IVER, LIPID, BMP, TSH #### [facility] [address] [place] [address] Dr. Neelima Bansal Bilirubin [Mass/Vol] 0.4 mg/dL Normal 0.2-1.0 [facility] Comment on above: Performed By: #### L IVER, LIPID, BMP, TSH #### [facility] [address] [place] [address] Dr. Neelima Bansal Globulin (S) [Mass/Vol] 3.4 g/dL Normal [facility] Comment on above: Performed By: #### L IVER, LIPID, BMP, TSH #### [facility] [address] [place] [address] Dr. Neelima Bansal Protein [Mass/Vol] 7.1 g/dL Normal 6.4-8.2 [facility] Comment on above: Performed By: #### L IVER, LIPID, BMP, TSH #### [facility] [address] [place] [address] Dr. Neelima Bansal PROF CHEM 8 (BAS METB)on Anion gap [Moles/Vol] 10.8 mmol/L Normal [facility] Comment on above: Performed By: #### L IVER, LIPID, BMP, TSH #### [facility] [address] [place] [address] Dr. Neelima Bansal Calcium [Mass/Vol] 8.5 mg/dL Normal 8.5-10.1 [facility] Comment on above: Performed By: #### L IVER, LIPID, BMP, TSH #### [facility] [address] [place] [address] Dr. Neelima Bansal Chloride [Moles/Vol] 104 mmol/L Normal 98-107 [facility] Comment on above: Performed By: #### L IVER, LIPID, BMP, TSH #### [facility] [address] [address] [address] Neelima Bansal CO2 [Moles/Vol] 29.4 mmol/L Normal 21.0-32.0 [facility] Comment on above: Performed By: #### L IVER, LIPID, BMP, TSH #### [facility] [address] [address] [address] Neelima Bansal Creatinine [Mass/Vol] 1.01 mg/dL Normal 0.70-1.30 [facility] Comment on above: Performed By: #### L IVER, LIPID, BMP, TSH #### [facility] [address] [address] [address] Neelima Bansal EGFR-AF BURKINAN >60 Normal >=60 [facility] Comment on above: Performed By: #### L IVER, LIPID, BMP, TSH #### [facility] [address] [address] [address] Neelima Bansal EGFR-NON AF BURKINAN >60 Normal >=60 [facility] Comment on above: Performed By: #### L IVER, LIPID, BMP, TSH #### [facility] [address] [address] [address] Neelima Bansal Glucose [Mass/Vol] 136 mg/dL Critically high 74-106 [facility] Comment on above: Performed By: #### L IVER, LIPID, BMP, TSH #### [facility] [address] [address] [address] Neelima Bansal Potassium [Moles/Vol] 4.2 mmol/L Normal 3.5-5.1 [facility] Comment on above: Performed By: #### L IVER, LIPID, BMP, TSH #### [facility] [address] [address] [address] Neelima Bansal Sodium [Moles/Vol] 140 mmol/L Normal 136-145 [facility] Comment on above: Performed By: #### L IVER, LIPID, BMP, TSH #### [facility] [address] [address] [address] Neelima Bansal Urea nitrogen [Mass/Vol] 21.0 mg/dL Critically high 7.0-18.0 [facility] Comment on above: Performed By: #### L IVER, LIPID, BMP, TSH #### [facility] [address] [place] [address] Dr. Neelima Bansal Urea nitrogen/Creatinine [Mass ratio] 20.8 mg/mg Normal [facility] Comment on above: Performed By: #### L IVER, LIPID, BMP, TSH #### [facility] [address] [place] [address] Dr. Neelima Bansal TSHon 08-17-2021 TSH 2.401 uIU/mL Normal 0.358-3.740 [facility] Comment on above: Performed By: #### L IVER, LIPID, BMP, TSH #### [facility] [address] [place] [address] Dr. Neelima Bansal TSH RANGE SEE BELOW Normal [facility] Comment on above: Result Comment: <0.3 4 UIU/ml HYPERTHYROID 0.34-5.60 UIU/ml EUTHYROID >5.60 UIU/ml HYPOTHYROID Performed By: #### L IVER, LIPID, BMP, TSH #### [facility] [address] [place] [address] Dr. Neelima Bansal VITAMIN D 25 OHon 08-17-2021 VIT D 25-OH 54.0 ng/mL Normal [facility] Comment on above: Performed By: #### P SASC, VITAD #### [facility] [address] [place] [address] Dr. Neelima Bansal VIT D RANGES SEE BELOW Normal [facility] Comment on above: Result Comment: <20 ng/mL Vit D deficient 20 - <30 ng/mL Vit D insufficient 30 - 100 ng/mL Vit D sufficient >100 ng/mL Potential Toxicity Performed By: #### P SASC, VITAD #### [facility] [address] [place] [address] Dr. Neelima Bansal Cardiovascular Lab Reporton 06-22-2018 Cardiovascular Lab Report [facility] Patient Name: [facility] MR #: [id number] Department of Physician: Imtiaz Stefan Haq M.D. Division of Service Date: 06/21/2018 Cardiology Birthdate: 1960 Adult Cardiovascular Room #: [address] [place] [address] [address] [address] Cardiovascular Laboratory Report PROCEDURES: Transesophageal echocardiogram and cardioversion. INDICATION: Atrial fibrillation. FELLOW: Dr. Sanchez. PROCEDURE IN DETAIL: An informed consent was obtained from the patient after explaining indication, risks, benefits, and alternatives. The patient understood and agreed and signed the consent form. The patient was brought to the [facility] and RYANN was performed under conscious sedation. [...] Sanchez MD Date Trans: 06/22/2018 03:57 A/lisa [id number] cc: Michael Spangler M.D. [address] [facility] [address] Normal [facility] Vital Signs Date Time Vital Sign Value Performing Clinician Facility 12-05-2024 07:41-0400 Body height 180.3 cm Tsering Saenz APRN.CNP Work Phone: [place] 12-05-2024 07:41-0400 Body mass index (BMI) [Ratio] 33.89 kg/m2 Tsering Saenz APRN.CNP Work Phone: [place] 12-05-2024 07:41-0400 Body weight 110.22 kg Tsering Letty APARTMENT LOCATOR.CHEESE TESTER Work Phone: [place] 12-05-2024 07:41-0400 Diastolic blood pressure 89 mm[Hg] Tsering Letty APARTMENT LOCATOR.CHEESE TESTER Work Phone: [place] 12-05-2024 07:41-0400 Heart rate 150 /min Tsering Letty APARTMENT LOCATOR.CHEESE TESTER Work Phone: [place] 12-05-2024 07:41-0400 Systolic blood pressure 143 mm[Hg] Tsering Letty APARTMENT LOCATOR.CHEESE TESTER Work Phone: [place] 08-07-2024 15:00-0400 Body height 180.3 cm Michael Spangler MD Work Phone: [facility] 08-07-2024 15:00-0400 Body mass index (BMI) [Ratio] 34.73 kg/m2 Michael Spangler MD Work Phone: [facility] 08-07-2024 15:00-0400 Body temperature 97.5 [degF] Michael Spangler MD Work Phone: [facility] 08-07-2024 15:00-0400 Body weight 112.95 kg Michael Spangler MD Work Phone: [facility] 08-07-2024 15:00-0400 Diastolic blood pressure 58 mm[Hg] Michael Spangler MD Work Phone: [facility] 08-07-2024 15:00-0400 Heart rate 71 /min Michael Spangler MD Work Phone: [facility] 08-07-2024 15:00-0400 Respiratory rate 18 /min Michael Spangler MD Work Phone: [facility] 08-07-2024 15:00-0400 SaO2% (BldA) [Mass fraction] 95 % Michael Spangler MD Work Phone: [facility] 08-07-2024 15:00-0400 Systolic blood pressure 126 mm[Hg] Michael Spangler MD Work Phone: [facility] 02-13-2024 08:27-0500 Body height 180.3 cm Radha Irene DPM Work Phone: [facility] 02-13-2024 08:27-0500 Body mass index (BMI) [Ratio] 35.15 kg/m2 Radha Preciado DPM Work Phone: [facility] 02-13-2024 08:27-0500 Body weight 114.31 kg Radha Irene DPM Work Phone: [facility] 02-08-2024 10:46-0500 Body height 180.3 cm Michael Spangler MD Work Phone: [facility] 02-08-2024 10:46-0500 Body mass index (BMI) [Ratio] 35.15 kg/m2 Michael Spangler MD Work Phone: [facility] 02-08-2024 10:46-0500 Body temperature 97.11 [degF] Michael Spangler MD Work Phone: [facility] 02-08-2024 10:46-0500 Body weight 114.31 kg Michael Spangler MD Work Phone: [facility] 02-08-2024 10:46-0500 Diastolic blood pressure 66 mm[Hg] Michael Spangler MD Work Phone: [facility] 02-08-2024 10:46-0500 Heart rate 74 /min Michael Spangler MD Work Phone: [facility] 02-08-2024 10:46-0500 Respiratory rate 18 /min Michael Spangler MD Work Phone: [facility] 02-08-2024 10:46-0500 SaO2% (BldA) [Mass fraction] 92 % Michael Spangler MD Work Phone: [facility] 02-08-2024 10:46-0500 Systolic blood pressure 130 mm[Hg] Michael Spangler MD Work Phone: [facility] 02-02-2024 15:15-0400 Body height 180.3 cm Radha Bonilla DPM Work Phone: [facility] 02-02-2024 15:15-0400 Body mass index (BMI) [Ratio] 34.87 kg/m2 Radha Bonilla DPM Work Phone: [facility] 02-02-2024 15:15-0400 Body weight 113.4 kg Radha Bonilla DPM Work Phone: [facility] 03-08-2023 10:47-0500 Body height 180.3 cm Jessica Winter MD Work Phone: [place] 03-08-2023 10:47-0500 Body weight 110.68 kg Jessica Winter MD Work Phone: [place] 03-08-2023 10:47-0500 Diastolic blood pressure 66 mm[Hg] Jessica Winter MD Work Phone: [place] 03-08-2023 10:47-0500 Heart rate 70 /min Jessica Winter MD Work Phone: [place] 03-08-2023 10:47-0500 Systolic blood pressure 136 mm[Hg] Jessica Winter MD Work Phone: [place] 09-24-2021 15:23-0400 Body height 180.3 cm Jessica Winter MD Work Phone: [place] 09-24-2021 15:23-0400 Body weight 113.4 kg Jessica Winter MD Work Phone: [place] 09-24-2021 15:23-0400 Diastolic blood pressure 77 mm[Hg] Jessica Winter MD Work Phone: [place] 09-24-2021 15:23-0400 Heart rate 60 /min Jessica Winter MD Work Phone: [place] 09-24-2021 15:23-0400 Systolic blood pressure 143 mm[Hg] Jessica Winter MD Work Phone: [place] 09-01-2021 14:02-0400 Blood Pressure Location Terrence N[facility] [place] 09-01-2021 14:02-0400 Diastolic blood pressure 80 mm[Hg] [facility] [place] 09-01-2021 14:02-0400 Heart rate 68 /min Terrence NILL [facility] [place] 09-01-2021 14:02-0400 Respiratory rate 16 /min Terrence N[facility] [place] 09-01-2021 14:02-0400 Systolic blood pressure 132 mm[Hg] Terrence N[facility] [place] 06-23-2021 10:36-0400 Body height 180.3 cm Jessica Winter MD Work Phone: [place] 06-23-2021 10:36-0400 Body weight 115.67 kg Jessica Winter MD Work Phone: [place] 06-23-2021 10:36-0400 Diastolic blood pressure 76 mm[Hg] Jessica Winter MD Work Phone: [place] 06-23-2021 10:36-0400 Heart rate 56 /min Jessica Winter MD Work Phone: [place] 06-23-2021 10:36-0400 Systolic blood pressure 128 mm[Hg] Jessica Winter MD Work Phone: [place] Encounters Encounter Date Encounter Type Care Provider Facility Start: 12-05-2024 End: 12-05-2024 Patient encounter procedure Tsering Saenz APARTMENT LOCATOR.CHEESE TESTER Work Phone: Cardiology Comment on above: Persistent atrial fi brillation (HCC) (Primary Dx); Primary hypertension; Chronic anticoagulation; Obstructive sleep apnea syndrome; Pre-diabetes Start: 12-05-2024 End: 12-05-2024 ambulatory JESSICA WINTER Facility:[facility] Start: 12-04-2024 End: 12-04-2024 ambulatory Jessica Winter MD Work Phone: [facility]iology Comment on above: Patient Education (E PS- DCC) Start: 11-29-2024 End: 11-29-2024 Telephone encounter Jessica Winter MD Work Phone: [facility]iology Comment on above: Received Outside Med ical Records (EKG) Start: 11-28-2024 End: 11-28-2024 Telephone encounter Jessica Winter MD Work Phone: [facility]iology Comment on above: Appointment (Cardiov ersion) Start: 11-26-2024 End: 11-28-2024 Clinisync Result Encounter Generic External Data Provider [facility] External Department Unsolicited Start: 11-26-2024 End: 11-28-2024 Clinisync Result Encounter Generic External Data Provider [facility] External Department Unsolicited Start: 11-26-2024 End: 11-26-2024 Telephone encounter Jessica Winter MD Work Phone: [facility]iology Comment on above: Patient Update (Back in AFib) Start: 09-03-2024 End: 09-03-2024 Refill Jessica Winter MD Work Phone: Cardiology Comment on above: Refill Request (Eliq uis) Persistent atrial fi brillation (HCC) (Primary Dx) Start: 09-01-2024 End: 09-01-2024 Clinisync Result Encounter Michael Spangler MD Work Phone: [facility] External Department Unsolicited Start: 09-01-2024 End: 09-01-2024 Clinisync Result Encounter Michael Spangler MD Work Phone: [facility] External Department Unsolicited Start: 09-01-2024 End: 09-03-2024 Refill Jessica Winter MD Work Phone: Cardiology Comment on above: Refill Request Start: 08-07-2024 End: 08-07-2024 ambulatory MICHAEL SPANGLER Not Available Start: 08-07-2024 End: 08-07-2024 Office outpatient visit 25 minutes Michael Spangler MD Work Phone: [facility] Comment on above: Type 2 diabetes nolan itus with hyperglycemia, without long-term current use of insulin (CMS/HCC) (Primary Dx); Essential hypertension, benign (CMS/HCC); AF (paroxysmal atrial fibrillation) (CMS/HCC); REAL on CPAP; Plantar fasciitis of right foot; Annual physical exam Start: 08-07-2024 End: 08-07-2024 Patient encounter procedure Michael Spangler MD Work Phone: [facility] Start: 08-07-2024 End: 08-07-2024 Bamboo flowsheet Michael Spangler MD Work Phone: [facility] Start: 08-07-2024 End: 08-07-2024 Bamboo flowsheet Michael Spangler MD Work Phone: [facility] Start: 05-30-2024 End: 05-30-2024 ambulatory [facility] Start: 05-21-2024 End: 05-21-2024 Telephone encounter Jessica Winter MD Work Phone: Cardiology Comment on above: Patient Question Start: 02-13-2024 End: 02-13-2024 Bamboo flowsheet Radha Bonilla DPM Work Phone: [facility] Start: 02-13-2024 End: 02-13-2024 Bamboo flowsheet Radha Bonilla DPM Work Phone: [facility] Start: 02-13-2024 End: 02-13-2024 Clinisync Result Encounter Michael Spangler MD Work Phone: [facility] External Department Unsolicited Start: 02-13-2024 End: 02-13-2024 Postop follow up visit related to original px Radha Bonilla DPM Work Phone: [facility] Comment on above: Postoperative visit (Primary Dx); Dermatophytosis of nail Start: 02-13-2024 End: 02-13-2024 ambulatory RADHA BONILLA Not Available Start: 02-10-2024 End: 02-10-2024 Bamboo flowsheet Radha Bonilla DPM Work Phone: [facility] Start: 02-10-2024 End: 02-10-2024 Bamboo flowsheet Radha Bonilla DPM Work Phone: [facility] Start: 02-08-2024 End: 02-08-2024 Bamboo flowsheet Michael Spangler MD Work Phone: [facility] Start: 02-08-2024 End: 02-08-2024 Bamboo flowsheet Michael Spangler MD Work Phone: [facility] Start: 02-08-2024 End: 02-08-2024 ambulatory MICHAEL SPANGLER Not Available Start: 02-08-2024 End: 02-08-2024 Office outpatient visit 25 minutes Michael Spangler MD Work Phone: [facility] Comment on above: Type 2 diabetes nolan itus with hyperglycemia, without long-term current use of insulin (CMS/HCC) (Primary Dx); Essential hypertension, benign (CMS/HCC); AF (paroxysmal atrial fibrillation) (CMS/HCC); Gastroesophageal reflux disease without esophagitis Start: 02-02-2024 End: 02-02-2024 Patient encounter procedure Radha Bonilla DPM Work Phone: [facility] Comment on above: Dermatophytosis of n ail (Primary Dx); Dystrophic nail; Pain of left great toe; Difficulty walking Start: 02-02-2024 End: 02-02-2024 ambulatory RADHA A RUSHER Not Available Start: 02-01-2024 End: 02-01-2024 Bamboo flowsheet Radha A Rusher DPM Work Phone: [facility] Start: 02-01-2024 End: 02-01-2024 Bamboo flowsheet Radha A Rusher DPM Work Phone: [facility] Start: 01-05-2024 End: 01-09-2024 Refill Jessica Winter MD Work Phone: Cardiology Comment on above: Refill Request Start: 10-27-2023 End: 10-27-2023 ambulatory RADHA A RUSHER Not Available Start: 09-22-2023 End: 09-22-2023 [...] 11-17-2022 ambulatory Terrence R BRIGETTE Facility : [facility] Start: 10-20-2022 End: 10-21-2022 ambulatory Terrence R FABYL Facility:CD:[id number] Start: 09-22-2022 End: 09-23-2022 ambulatory Terrence R BRIGETTE Facility:[facility] Start: 03-11-2022 End: 03-11-2022 Nursing evaluation of [...] 10-16-2021 End: 10-16-2021 Patient encounter procedure Terrence MACHUCA [facility] Start: 10-12-2021 End: 11-03-2021 ambulatory SHAIKH Selwyn MERCEDES Facility:[facility] Start: 10-07-2021 End: 10-07-[address] TERRENCE MACHUCA Facility:[facility] Start: 10-01-2021 End: 10-02-2021 ambulatory SHAIKH Selwyn MERCEDES Facility:[facility]1 Start: 09-30-2021 Orders Only Jessica Salzaar i, MD Work Phone: Cardiology Comment on [...] 09-01-2021 End: 09-01-2021 Patient encounter procedure Terrence MACHUCA [facility] Start: 08-27-2021 ambulatory Jessica Salazar i, MD Work Phone: Cardiology Comment on above: Any treatment adjust ment Start: 08-20-2021 Encounter for genera l adult medical examination without abnormal findings DR MICHAEL SPANGLER [facility] Start: 08-17-2021 End: 08-18-[address] MICHAEL SPANGLER Facility:[facility]1 Start: 08-17-2021 End: 08-18-2021 Encounter for general adult medical examination without abnormal findings DR MICHEAL SPANGLER Facility:[facility] Start: 07-03-2021 Telephone encounter Jessica Winter MD Work Phone: Cardiology Comment on above: Medication Problem ( Prior auth denial ) Start: 07-01-2021 Telephone encounter Jessica Winter MD Work Phone: Cardiology Comment on above: Prior Auth from [employer] Start: 06-24-2021 Orders Only Jessica Salazar i, [...] 03-18-2021 Patient entered into trial [facility] [place] Start: 06-21-2018 End: 06-22-2018 Patient encounter procedure PROVIDER UNKNOWN Facility:[facility] Procedures Date Procedure Procedure Detail Performing Clinician Start: 11-26-2024 ECG 12-LEAD Generic Ex ternal Data Provider Start: 09-01-2024 ALL CBC WITH AUTO DIFF Michael Spangler MD Work Phone: Start: 02-13-2024 MLR HEMOGLOBIN A1C Michael Spangler MD Work Phone: Start: 10-20-2022 Colonoscopy Radha merida DPM Work Phone: Start: 10-07-2021 Sigmoidoscopy Terrence RANDLE Start: 08-17-2021 PSA screening SHAIKH SHAHZAD BURNS Comment on above: Performed By: #### P SASC, VITAD #### [facility] [address] [place] [address] Dr. Neelima Bansal Start: 09-02-2020 Colonoscopy Terrence NGUYỄN Cardioversion Terrence MACHUCA Catheter ablation of tissue of heart Terrence MACHUCA Tonsillectomy Terrence MACHUCA Plan of Treatment Date Care Activity Detail Author Start: 2036 RSV Vaccine (1 - 1-d ose 75+ series) RSV Vaccine (1 - 1-dose 75+ series) [place] Start: 10-20-2032 Screening for malign ant neoplasm of colon [facility] Start: 09-01-2029 Prostate specific an tigen measurement Prostate Cancer Screening Discussion [place] Start: 12-06-2027 Diabetes Screening Diabetes Screenin g [place] Start: 08-17-2026 PROSTATE CANCER SCRE ENING DISCUSSION PROSTATE CANCER SCREENING DISCUSSION [place] Start: 08-17-2026 Prostate specific an tigen measurement Prostate Cancer Screening Discussion [place] Start: 03-07-2025 End: 03-07-2025 Patient encounter procedure 03/07/2025 10:00 AM EST Office Visit Cardiology [address] [place] [phone] Jessica Winter MD [address] [place] [address] Dx. PERSISTANT AFIB Cardiology Comment on above: Dx. PERSISTANT AFIB Start: 03-07-2025 End: 03-07-2025 ambulatory 03/07/2025 9:00 AM EST Procedure Cardiology [address] [place] [id number] Dx. PERSISTANT AFIB Cardiology Comment on above: Dx. PERSISTANT AFIB Start: 02-08-2025 End: 02-08-2025 Patient encounter procedure 02/08/2025 9:00 AM EST Office Visit [facility] [address] [place] [address] Michael Spangler MD [address] [place] [address] [facility] Start: 12-05-2024 End: 12-05-2024 Cardioversion elective arrhythmia external CARDIOVERSION EXTERNAL ELECTIVE Persistent atrial fibrillation (HCC) 12/05/2024 10:35 AM EDT EP LAB Start: 12-05-2024 End: 12-05-2024 Admission to same day surgery center HOSP EP Lab Comment on above: CARDIOVERSION SEED CLEANER AL ELECTIVE Start: 12-05-2024 End: 12-05-2024 ambulatory 12/05/2024 7:00 AM EDT Procedure Cardiology [address] [place] [id number] [facility] Comment on above: [facility] Start: 12-05-2024 End: 12-05-2024 Cardioversion elective arrhythmia external EP LAB Start: 12-05-2024 Subsequent hospital visit by physician HOSP EP Lab Comment on above: Persistent atrial fi brillation (HCC) [I48.19] Start: 12-05-2024 End: 12-05-2024 Patient encounter procedure Cardiology Comment on above: [facility] interview Start: 12-03-2024 Influenza vaccination [facility] Start: 08-26-2024 Urine screening for protein Diabetes: Urine Protein Screening [facility] Start: 08-12-2024 Hemoglobin A1c measurement Mariana betes: Hemoglobin A1C [facility] Start: 08-07-2024 End: 08-07-2024 Patient encounter procedure 08/07/2024 2:45 PM EDT Office Visit [facility] [address] [place] [address] Michael Spangler MD [address] [place] [id number] [facility] Start: 08-07-2024 End: 08-07-2025 Basic metabolic 1998 panel - Serum or Plasma Basic metabolic panel Lab Routine Annual physical exam Expected: 08/07/2024 (Approximate), Expires: 08/07/2025 [facility] Comment on above: Expected: 08/07/2024 (Approximate), Expires: 08/07/2025 Start: 08-07-2024 End: 08-07-2025 CBC W Auto Differential panel - Blood CBC and differential Lab Routine Annual physical exam Expected: 08/07/2024 (Approximate), Expires: 08/07/2025 [facility] Comment on above: Expected: 08/07/2024 (Approximate), Expires: 08/07/2025 Start: 08-07-2024 End: 08-07-2025 Hemoglobin A1c/Hemoglobin.total in Blood Hemoglobin A1c Lab Routine Annual physical exam Expected: 08/07/2024 (Approximate), Expires: 08/07/2025 [facility] Comment on above: Expected: 08/07/2024 (Approximate), Expires: 08/07/2025 Start: 08-07-2024 End: 08-07-2025 Hepatic function 2000 panel - Serum or Plasma Hepatic function panel Lab Routine Annual physical exam Expected: 08/07/2024 (Approximate), Expires: 08/07/2025 [facility] Comment on above: Expected: 08/07/2024 (Approximate), Expires: 08/07/2025 Start: 08-07-2024 End: 08-07-2025 Lipid 1996 panel - Serum or Plasma Lipid panel Lab Routine Annual physical exam Expected: 08/07/2024 (Approximate), Expires: 08/07/2025 [facility] Comment on above: Expected: 08/07/2024 (Approximate), Expires: 08/07/2025 Start: 08-07-2024 End: 08-07-2025 Microalbumin/Creatinine panel in random Urine Microalbumin / creatinine, urine ratio Lab Routine Type 2 diabetes mellitus with hyperglycemia, without long-term current use of insulin ([facility]) Expected: 08/07/2024 (Approximate), Expires: 08/07/2025 [facility] Work Phone: Comment on above: Expected: 08/07/2024 (Approximate), Expires: 08/07/2025 Start: 08-07-2024 End: 08-07-2025 Prostate specific Ag [Mass/volume] in Serum or Plasma PSA Lab Routine Annual physical exam Expected: 08/07/2024 (Approximate), Expires: 08/07/2025 [facility] Comment on above: Expected: 08/07/2024 (Approximate), Expires: 08/07/2025 Start: 08-07-2024 End: 08-07-2025 Thyrotropin [Units/volume] in Serum or Plasma TSH Lab Routine Annual physical exam Expected: 08/07/2024 (Approximate), Expires: 08/07/2025 [facility] Comment on above: Expected: 08/07/2024 (Approximate), Expires: 08/07/2025 Start: 03-18-2024 DIABETES SCREEN DIABETES SCREEN [facility] Start: 03-18-2024 Diabetes Screening Diabetes Screenin g [place] Start: 02-27-2024 Hemoglobin A1c measurement Mariana betes: Hemoglobin A1C [facility] Start: 02-13-2024 End: 02-13-2024 Patient encounter procedure [facility] Comment on above: Arrived Start: 02-08-2024 End: 02-07-2025 Hemoglobin A1c/Hemoglobin.total in Blood Hemoglobin A1c Lab Routine Type 2 diabetes mellitus with hyperglycemia, without long-term current use of insulin ([facility]) Expected: 02/08/2024 (Approximate), Expires: 02/07/2025 [facility] Work Phone: Comment on above: Expected: 02/08/2024 (Approximate), Expires: 02/07/2025 Start: 02-08-2024 End: 02-08-2024 Patient encounter procedure 02/08/2024 10:30 AM EST [facility] [address] [place] [phone] Michael Spangler MD [address] [place] [phone] [facility] Start: 02-02-2024 End: 02-02-2024 Patient encounter procedure 02/02/2024 3:30 PM EDT Office Visit [facility] [address] [place] [phone] Radha Bonilla DP [address] [facility] [address] [facility] Start: 12-04-2023 Covid-19 Vaccine () Covid-19 Vaccine () [place] Start: 12-04-2023 Influenza vaccination C [facility] Start: 08-20-2023 Screening for malign ant neoplasm of colon [place] Start: 04-04-2023 Behavioral Health Screening Behavioral Health Screening [place] Start: 04-04-2023 Depression Assessment Depression Ass essment [place] Start: 03-11-2023 BP Controlled (<130/80) BP Controlle d (<130/80) [place] Start: 12-03-2022 Covid-19 Vaccine () Covid-19 Vaccine () [place] Start: 12-03-2022 Covid-19 Vaccine () Covid-19 Vaccine () [place] Start: 12-03-2022 Influenza vaccination Influenza Vacc ine (#1) [place] Start: 04-04-2022 Depression Assessment Depression Ass essment [place] Start: 12-03-2021 Influenza vaccination C [facility] Start: 11-19-2021 COVID-19 VACCINE (4 - Booster for Pfizer series) COVID-19 VACCINE (4 - Booster for Pfizer series) [place] Start: 09-14-2021 COVID-19 VACCINE (4 - Booster for Pfizer series) COVID-19 VACCINE (4 - Booster for Pfizer series) [place] Start: 2021 RSV Vaccine (1 - 1-d ose 60+ series) RSV Vaccine (1 - 1-dose 60+ series) [place] Start: 04-04-2021 DEPRESSION ASSESSMENT DEPRESSION ASS ESSMENT [place] Start: 12-09-2020 COVID-19 VACCINE (3 - Booster for Pfizer series) COVID-19 VACCINE (3 - Booster for Pfizer series) [place] Start: 12-03-2020 Influenza vaccination INFLUENZA (#1) [place] Start: 07-06-2020 Urine microalbumin profile [place] Start: 2016 PROSTATE CANCER SCRE ENING DISCUSSION PROSTATE CANCER SCREENING DISCUSSION [place] Start: 09-07-2011 Pneumococcal Vaccine : 50+ (1 of 1 - PCV) Pneumococcal Vaccine: 50+ (1 of 1 - PCV) [place] Start: 09-07-2011 SHINGRIX VACCINE (1 of 2) ROBLES GRIX VACCINE (1 of 2) [place] Start: 2006 COLOGUARD (FIT-DNA) COLOGUARD (FIT-D NA) [place] Start: 2006 Colonoscopy COLONOSCOPY [place] Start: 2006 COLORECTAL CANCER SCREENING COLORECTAL CANCER SCREENING [place] Start: [address] COLONOGRAPHY [facility] Start: 2006 FECAL OCCULT BLOOD FECAL OCCULT BLOO D [place] Start: 2006 Screening for malign ant neoplasm of colon [place] Start: 2006 SIGMOIDOSCOPY SIGMO[facility]OSCOPY [facility] Start: 1996 Lipid 1996 panel - S tomas or Plasma Lipid Screening [place] Start: 1996 Lipid panel Lipid Screening [facility] Start: 1996 LIPID SCREEN LIPID SCREEN [place] Start: 1980 Urine screening for protein Diabetes: Urine Protein Screening [facility] Start: 09-07-1979 Annual PCP Team [employer] elijah Disease Visit Annual PCP Team Chronic Disease Visit [place] Start: 09-07-1979 Anxiety Screening Anxiety Screening [place] Start: 09-07-1979 BP Controlled (<130/80) BP Controlle d (<130/80) [place] Start: 09-07-1979 Depression Screening Depression Scre ening [place] Start: 09-07-1979 HEPATITIS C SCREENING HEPATITIS C [facility] Start: 09-07-1979 Hepatitis C screening Hepatitis C [facility] Start: 09-07-1979 HIV SCREENING HIV SCREENING [facility] Start: 09-07-1979 HIV screening HIV Screening [facility] Start: 1973 Adult depression scr eening assessment DEPRESSION SCREENING [place] Start: 09-07-1971 Glaucoma screening Diabetes: R etinopathy Screening [facility] Start: 1961 Hemoglobin A1c measurement Mariana betes: Hemoglobin A1C [facility] Start: 1961 Screening for malign ant neoplasm of colon [facility] End: 06-24-2022 ECG COMPLETE ECG COMPLETE ECG Routine Persistent atrial fibrillation (HCC) IRB 20-121 MAP AF PI: Dr. Shannon Dozier 1 Occurrences starting 06/24/2021 until 06/24/2022 [facility] Work Phone: Comment on above: 1 Occurrences starti ng 06/24/2021 until 06/24/2022 End: 09-30-2022 ECG COMPLETE ECG COMPLETE ECG Routine Persistent atrial fibrillation (HCC) IRB 20-461 MAP AF PI: Dr. Shannon Dozier 1 Occurrences starting 09/30/2021 until 09/30/2022 [facility] Work Phone: Comment on above: 1 Occurrences starti ng 09/30/2021 until 09/30/2022 End: 09-03-2025 ECG COMPLETE ECG COMPLETE ECG Routine Persistent atrial fibrillation (HCC) 1 Occurrences starting 09/03/2024 until 09/03/2025 [facility] Work Phone: Comment on above: 1 Occurrences starti ng 09/03/2024 until 09/03/2025 End: 11-28-2025 ECG COMPLETE ECG COMPLETE ECG Routine Persistent atrial fibrillation (HCC) 1 Occurrences starting 11/28/2024 until 11/28/2025 [facility] Work Phone: Comment on above: 1 Occurrences starti ng 11/28/2024 until 11/28/2025 Echocardiography ECHO Cardiology Routine Atrial fibrillation, persistent (HCC) Ordered: 06/23/2021 [facility] Work Phone: Comment on above: Ordered: 06/23/2021 OUTSIDE VENDOR CARDI AC OUTPATIENT EXTENDED RHYTHM RECORDING (WITHOUT TELEMETRY) OUTSIDE VENDOR CARDIAC OUTPATIENT EXTENDED RHYTHM RECORDING (WITHOUT TELEMETRY) Holter Routine Persistent atrial fibrillation (HCC) IRB 20-753 MAP AF PI: Dr. Shannon Dozier Ordered: 06/24/2021 [facility] Work Phone: Comment on above: Ordered: 06/24/2021 OUTSIDE VENDOR CARDI AC OUTPATIENT EXTENDED RHYTHM RECORDING (WITHOUT TELEMETRY) OUTSIDE VENDOR CARDIAC OUTPATIENT EXTENDED RHYTHM RECORDING (WITHOUT TELEMETRY) Holter Routine Persistent atrial fibrillation (HCC) IRB 20-331 MAP AF PI: Dr. Shannon Dozier Ordered: 09/30/2021 [facility] Work Phone: Comment on above: Ordered: 09/30/2021 [facility] Immunizations Immunization Date Immunization Notes Care Provider Shahzad jurado 07-20-2021 Pfizer Cook Cap SARS-CoV-2 Vaccination Radha Bonilla DPM Work Phone: [facility] 07-09-2020 Pfizer Purple Cap SARS-CoV-2 Vaccination Radha Bonilla DPM Work Phone: [facility] 07-03-2020 SARS-CoV-2 (COVID-19 ) mRNA BNT-162b2 vax Terrence MACHUCA [facility] [place] 06-18-2020 Pfizer Purple Cap SARS-CoV-2 Vaccination Radha Bonilla DPM Work Phone: [facility] 06-11-2020 SARS-CoV-2 (COVID-19 ) mRNA BNT-162b2 vax Terrence HOBBSChalo [facility] [place] 07-06-2010 tetanus toxoid, redu rodrigo diphtheria toxoid, and acellular pertussis vaccine, adsorbed [facility] [place] Payers Date Payer Category Payer Blue Cross Blue Shield [id number] 2022 Unknown [id number] 2022 Unknown [id number] 2018 Unknown MMO MMO [employer] [id number] 2018-Present [phone] [address] [place] [address] O [id number] 2018 Unknown [id number] .[id number] 1961 Unknown [id number] 2.16.840.1.022962.3.579.2 .647 1961 Unknown [id number] 2.16.840.1.734859.3.579.2 .593 1961 Unknown [id number] 2.16.840.1.292939.3.579.2 .593 1961 Unknown [id number] 2.16.840.1.660535.3.579.2 .593 1961 Unknown [id number] 2.16.840.1.816635.3.579.2 .593 1961 Unknown [id number] 2.16.840.1.669520.3.579.2 .593 1961 Unknown [id number] 2.16.840.1.456791.3.579.2 .593 1961 Unknown [id number] 2.16.840.1.562890.3.579.2 .593 1961 Unknown [id number] 2.16.840.1.711123.3.579.2 .727 1961 Unknown [id number] 2.16.840.1.049856.3.579.2 .727 1961 Unknown [id number] 2.16.840.1.541615.3.579.2 .727 1961 Unknown [id number] 2.16.840.1.459989.3.579.2 .1259 1961 Unknown [id number] 2.16.840.1.798096.3.579.2 .1259 1961 Unknown [id number] 2.16.840.1.065187.3.579.2 .1259 1961 Unknown [id number] 2.16.840.1.737473.3.579.2 .1259 1961 Unknown [id number] 2.16.840.1.142051.3.579.2 .1259 1961 Unknown [id number] 2.16.840.1.182641.3.579.2 .1259 1961 Unknown [id number] 2.16.840.1.993511.3.579.2 .1259 1961 Unknown [id number] 2.16.840.1.869721.3.579.2 .1259 1959 Unknown [id number] Social History Date Type Detail Facility Start: 07-18-2018 End: 03-11-2022 Tobacco smoking status NHIS Ex-smoker [place] End: 04-04-2017 History of tobacco use Current smoker [place] End: 04-04-2017 History of tobacco use Cigarette Smoker [place] Start: 07-18-2018 End: 03-11-2022 Tobacco use and exposure Smokeless tobacco non-user [place] Start: 06-23-2021 End: 12-05-2024 Alcohol intake Current drinker of alcohol (finding) [place] Start: 07-18-2018 History SDOH Alcohol Comment rarely [place] Start: 1960 Sex Assigned At Male [place] Start: 06-13-2021 End: 09-24-2021 Exposure to SARS-CoV-2 (event) Not sure [place] Start: 07-06-2018 Tobacco smoking status Never [facility] [place] Start: 03-11-2022 End: 03-08-2023 Sex Assigned At Male [facility] Start: 09-20-2021 End: 09-30-2021 Exposure to SARS-CoV-2 (event) Unable to assess [place] Work Phone: Start: 03-11-2022 End: 03-08-2023 History of Social function [place] Start: 04-07-2021 Gender identity Identifies as male gender (finding) [place] Start: 04-07-2021 Sexual orientation Heterosexual (finding) [place] Start: 10-27-2023 End: 08-07-2024 Alcoholic beverage intake Ex-drinker (finding) [facility] Start: 08-22-2023 Alcohol Comment rare [facility] Start: 1960 Sex assigned at Not on file [facility] Medical Equipment Procedure Code Equipment Code Equipment Origin al Text Equipment Identifier Dates 1 each by In Vit ro route Daily [id number] Start: 08-07-2024 1 each Daily [id number] Start: 08-07-2024 Goals Date Patient Goal Desired Activity /State Personal health goal Personal health goal Functional Status Date Assessment Result Facility 12-05-2024 Are you deaf, or do you have serious difficulty hearing No 12/05/2024 11:04 AM Estefany Johnston RN [facility] 12-05-2024 Are you blind, or do you have serious difficulty seeing, even when wearing glasses No 12/05/2024 11:04 AM Estefany Johnston RN No [place] 12-05-2024 Do you have serious difficulty walking or climbing stairs No 12/05/2024 11:04 AM Estefany Johnston RN No [place] 12-05-2024 Do you have difficul ty dressing or bathing No 12/05/2024 11:04 AM Estefany Johnston RN No [place] 12-05-2024 Because of a physica l, mental, or emotional condition, do you have difficulty doing errands alone such as visiting a physician's office or shopping No 12/05/2024 11:04 AM Estefany Johnston RN No [place] 03-19-2021 Are you deaf, or do you have serious difficulty hearing No 03/19/2021 5:23 PM [place] Salvador, RONALD No [place] 03-19-2021 Are you blind, or do you have serious difficulty seeing, even when wearing glasses No 03/19/2021 5:23 PM [place] Salvador, RONALD No [place] 03-19-2021 Do you have serious difficulty walking or climbing stairs No 03/19/2021 5:23 PM [place] Salvador, RONALD No [place] 03-19-2021 Do you have difficul ty dressing or bathing No 03/19/2021 5:23 PM [place] Salvador, RONALD No [place] 03-19-2021 Because of a physica l, mental, or emotional condition, do you have difficulty doing errands alone such as visiting a physician's office or shopping No 03/19/2021 5:23 PM [place] Salvador, RONALD No [place] Mental Status Date Assessment Result Facility 12-05-2024 Because of a physica l, mental, or emotional condition, do you have serious difficulty concentrating, remembering, or making decisions No 12/05/2024 11:04 AM Estefany Johnston RN No [place] 03-19-2021 Because of a physica l, mental, or emotional condition, do you have serious difficulty concentrating, remembering, or making decisions No 03/19/2021 5:23 PM [place] Salvador, RONALD No [place] Clinical Notes 06-23-2021 to 12-05-2024 Tsering Saenz APRN.[facility] - 12/05/2024 7:17 AM Tsering Schwartz APRN.[facility] - 12/05/2024 7:17 AM Phyllis Damon RN - 12/04/2024 12:27 PM Brayan Spangler MD - 08/07/2024 3:39 PM EDT Note Date & Type Note Facility 12-05-2024 History and physical note Images from the original note were not included. [facility] [place] Josi Apodaca Department of Cardiovascular Medicine SECTION OF CARDIAC PACING and ELECTROPHYSIOLOGY OUTPATIENT VISIT DATE December 05, 2024 OUTPATIENT VISIT TYPE ESTABLISHED PRIMARY CARE PHYSICIAN: Michael Spangler ([facility]) [address] [place] [address] CHIEF COMPLAINT: Atrial fibrillation HISTORY OF PRESENT ILLNESS: Mr. Lowe is a 64 year old male who presents today for follow-up visit for atrial fibrillation, planned for cardioversion. Established with Dr. Winter. Last seen in March 2023. The patient has a history of persistent AF refractory to treatment with Tikosyn. He underwent his first PVI in 11/2018. He developed recurrence of his arrhythmia in 11/2020 and had a redo PVI as part of the MAP AF in 03/2021. He had AF recurrence within the blanking period after this ablation and underwent cardioversion on 04/09/2021. He did well since 2021 until recently when in mid-November he developed AF. He is symptomatic with palpitations, diaphoresis, and mild fatigue, particularly when his heart rate increases. He also experiences dyspnea with fast walking. He denies any chest pain, pressure, lightheadedness, dizziness, or syncope. He describes his heart rate as feeling like he is running a marathon. He is scheduled for cardioversion today. He has been on Eliquis consistently for the past three weeks without missing doses. 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 metoprolol succinate ER (TOPROL XL) 25 mg 24 hr tablet take 1 tablet by mouth twice a day OZEMPIC 1 mg/dose (4 mg/3 mL) pen one time a week. metFORMIN (GLUCOPHAGE) 500 mg tablet Take 500 mg by mouth two times a day with meals. cholecalciferol (VITAMIN D3) 50 mcg (2,000 unit) tablet Take 2,000 Units by mouth once daily. lisinopril (ZESTRIL, PRINIVIL) 20 mg tablet Take 20 mg by mouth twice daily. REVIEW OF SYSTEMS: GENERAL: Negative for: Weight loss or gain, Fever or Chills, Weakness and Sleep difficulties. HEENT: Negative for: Headache, Impaired Vision, Glasses, Hearing Impairment, Ringing in Ears, Nosebleeds, Poor dental care, Bleeding Gums, Dentures NECK: Negative for: Swelling, Pain, Stiffness RESPIRATORY: Negative for: Cough, Blood in Sputum, Shortness of breath, Wheezing, Apnea GASTROINTESTINAL: Negative for: Trouble swallowing, Heartburn, Change in bowel habits, Blood in stool, Dark black stools MUSCULOSKELETAL: Negative for: Muscle or joint pain, Stiffness , Joint swelling NEUROLOGIC/PSYCHIATRIC: Negative for: Weakness, Paralysis, Numbness, Tingling, Tremor, Nervousness, Depressed mood, Memory loss SKIN: Negative for: Rashes, Itching HEMATOLOGICAL/LYMPHATIC: Negative for: Easy bruising , Easy bleeding ENDOCRINE: Negative for: Heat or cold intolerance, Excessive sweating, Frequent urination, Frequent thirst PHYSICAL EXAMINATION: BP 143/89 Pulse (!) 150 Ht 180.3 cm (5' 11 ) Wt 110.2 kg (243 lb) BMI 33.89 kg/m General: Well appearing, in no acute distress, speaking in complete sentences. Neck: No jugular venous distention, no carotid bruits, carotids have a normal upstroke, no palpable thyromegaly. Lungs: Clear to auscultation bilaterally, no wheezing or rhonchi. Heart: IRRR/tachycardic Abdomen: Soft, nontender, bowel sounds normal, no palpable organomegaly, no bruits. Extremities: No peripheral edema . Grade 2/4 distal pulses bilaterally. Neuro: Oriented to person, place and time, alert, cooperative, gait coordinated. CARDIOVASCULAR MEDICINE TESTING: Last EKG Result Conclusion ECG COMPLETE Collected: 12/05/2024 7:11 AM (Preliminary result) Impression: ATRIAL FIBRILLATION WITH RAPID VENTRICULAR RESPONSE NONSPECIFIC ST ABNORMALITY ABNORMAL ECG IMPRESSION: Mr. Lowe is a 64 year old male who presents today for follow-up visit for atrial fibrillation, planned for cardioversion. Established with Dr. Winter. Last seen in March 2023. The patient has a history of persistent AF refractory to treatment with Tikosyn. He underwent his first PVI in 11/2018. He developed recurrence of his arrhythmia in 11/2020 and had a redo PVI as part of the MAP AF in 03/2021. He had AF recurrence within the blanking period after this ablation and underwent cardioversion on 04/09/2021. He did well since 2021 until recently when in mid-November he developed AF. He is symptomatic with palpitations, diaphoresis, and mild fatigue, particularly when his heart rate increases. He also experiences dyspnea with fast walking. He denies any chest pain, pressure, lightheadedness, dizziness, or syncope. He describes his heart rate as feeling like he is running a marathon. He is scheduled for cardioversion today. PLAN AND RECOMMENDATIONS: 1. Persistent atrial fibrillation (HCC) (I48.19) 2. Chronic anticoagulation (Z79.01) CHADS2-Vasc Score Breakdown 1 Total Score 1 History of hypertension History of persistent AF refractory to prior antiarrhythmic therapy with dofetilide and two prior PVIs (November 2018, March 2021); most recent recurrence mid-November with symptomatic palpitations, diaphoresis, exertional dyspnea, and fatigue. On uninterrupted Eliquis for the past 3 weeks. 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 - Discussed that if AF recurs post-cardioversion, repeat ablation will likely be necessary. - Continue Eliquis as prescribed. - Follow-up with Dr. Winter in March. 3. Primary hypertension (I10) On lisinopril and metoprolol for blood pressure management. - Continue current antihypertensive regimen. 4. Obstructive sleep apnea syndrome (G47.33) REAL managed with CPAP therapy. - Continue CPAP therapy. 5. Pre-diabetes (R73.03) Pre-diabetes managed with metformin and Ozempic; patient is actively working on weight loss. - Continue metformin and Ozempic as prescribed. - Encouraged ongoing weight loss efforts to reduce risk of progression to diabetes and to lower AF recurrence risk. 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 Patient/authorized sales representative [employer] agreed to proceed CONTACT INFORMATION: HUSSAIN Copeland Dr. 's office To schedule an appointment please call --[phone] Other questions or concerns please call his office at -- [phone] Fax#: [phone] [1] Social History Tobacco Use Smoking status: Former Current packs/day: 0.00 Types: Cigarettes Quit date: 2018 Years since quittin.6 Smokeless tobacco: Never Vaping Use Vaping status: Never Used Substance Use Topics Alcohol use: Yes Comment: rarely Drug use: Not Currently [place] 12-05-2024 History and physical note Images from the original note were not included. [facility] Josi Apodaca Department of Cardiovascular Medicine SECTION OF CARDIAC PACING and ELECTROPHYSIOLOGY OUTPATIENT VISIT DATE December 05, 2024 OUTPATIENT VISIT TYPE ESTABLISHED PRIMARY CARE PHYSICIAN: Michael Spangler (Luis) [address] [place] [address] CHIEF COMPLAINT: Atrial fibrillation HISTORY OF PRESENT ILLNESS: Mr. Lowe is a 64 year old male who presents today for follow-up visit for atrial fibrillation, planned for cardioversion. Established with Dr. Winter. Last seen in March 2023. The patient has a history of persistent AF refractory to treatment with Tikosyn. He underwent his first PVI in 11/2018. He developed recurrence of his arrhythmia in 11/2020 and had a redo PVI as part of the MAP AF in 03/2021. He had AF recurrence within the blanking period after this ablation and underwent cardioversion on 04/09/2021. He did well since 2021 until recently when in mid-November he developed AF. He is symptomatic with palpitations, diaphoresis, and mild fatigue, particularly when his heart rate increases. He also experiences dyspnea with fast walking. He denies any chest pain, pressure, lightheadedness, dizziness, or syncope. He describes his heart rate as feeling like he is running a marathon. He is scheduled for cardioversion today. He has been on Eliquis consistently for the past three weeks without missing doses. 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 metoprolol succinate ER (TOPROL XL) 25 mg 24 hr tablet take 1 tablet by mouth twice a day OZEMPIC 1 mg/dose (4 mg/3 mL) pen one time a week. metFORMIN (GLUCOPHAGE) 500 mg tablet Take 500 mg by mouth two times a day with meals. cholecalciferol (VITAMIN D3) 50 mcg (2,000 unit) tablet Take 2,000 Units by mouth once daily. lisinopril (ZESTRIL, PRINIVIL) 20 mg tablet Take 20 mg by mouth twice daily. REVIEW OF SYSTEMS: GENERAL: Negative for: Weight loss or gain, Fever or Chills, Weakness and Sleep difficulties. HEENT: Negative for: Headache, Impaired Vision, Glasses, Hearing Impairment, Ringing in Ears, Nosebleeds, Poor dental care, Bleeding Gums, Dentures NECK: Negative for: Swelling, Pain, Stiffness RESPIRATORY: Negative for: Cough, Blood in Sputum, Shortness of breath, Wheezing, Apnea GASTROINTESTINAL: Negative for: Trouble swallowing, Heartburn, Change in bowel habits, Blood in stool, Dark black stools MUSCULOSKELETAL: Negative for: Muscle or joint pain, Stiffness , Joint swelling NEUROLOGIC/PSYCHIATRIC: Negative for: Weakness, Paralysis, Numbness, Tingling, Tremor, Nervousness, Depressed mood, Memory loss SKIN: Negative for: Rashes, Itching HEMATOLOGICAL/LYMPHATIC: Negative for: Easy bruising , Easy bleeding ENDOCRINE: Negative for: Heat or cold intolerance, Excessive sweating, Frequent urination, Frequent thirst PHYSICAL EXAMINATION: BP 143/89 Pulse (!) 150 Ht 180.3 cm (5' 11 ) Wt 110.2 kg (243 lb) BMI 33.89 kg/m General: Well appearing, in no acute distress, speaking in complete sentences. Neck: No jugular venous distention, no carotid bruits, carotids have a normal upstroke, no palpable thyromegaly. Lungs: Clear to auscultation bilaterally, no wheezing or rhonchi. Heart: IRRR/tachycardic Abdomen: Soft, nontender, bowel sounds normal, no palpable organomegaly, no bruits. Extremities: No peripheral edema . Grade 2/4 distal pulses bilaterally. Neuro: Oriented to person, place and time, alert, cooperative, gait coordinated. CARDIOVASCULAR MEDICINE TESTING: Last EKG Result Conclusion ECG COMPLETE Collected: 12/05/2024 7:11 AM (Preliminary result) Impression: ATRIAL FIBRILLATION WITH RAPID VENTRICULAR RESPONSE NONSPECIFIC ST ABNORMALITY ABNORMAL ECG IMPRESSION: Mr. Lowe is a 64 year old male who presents today for follow-up visit for atrial fibrillation, planned for cardioversion. Established with Dr. Winter. Last seen in March 2023. The patient has a history of persistent AF refractory to treatment with Tikosyn. He underwent his first PVI in 11/2018. He developed recurrence of his arrhythmia in 11/2020 and had a redo PVI as part of the MAP AF in 03/2021. He had AF recurrence within the blanking period after this ablation and underwent cardioversion on 04/09/2021. He did well since 2021 until recently when in mid-November he developed AF. He is symptomatic with palpitations, diaphoresis, and mild fatigue, particularly when his heart rate increases. He also experiences dyspnea with fast walking. He denies any chest pain, pressure, lightheadedness, dizziness, or syncope. He describes his heart rate as feeling like he is running a marathon. He is scheduled for cardioversion today. PLAN AND RECOMMENDATIONS: 1. Persistent atrial fibrillation (HCC) (I48.19) 2. Chronic anticoagulation (Z79.01) CHADS2-Vasc Score Breakdown 1 Total Score 1 History of hypertension History of persistent AF refractory to prior antiarrhythmic therapy with dofetilide and two prior PVIs (November 2018, March 2021); most recent recurrence mid-November with symptomatic palpitations, diaphoresis, exertional dyspnea, and fatigue. On uninterrupted Eliquis for the past 3 weeks. 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 - Discussed that if AF recurs post-cardioversion, repeat ablation will likely be necessary. - Continue Eliquis as prescribed. - Follow-up with Dr. Winter in March. 3. Primary hypertension (I10) On lisinopril and metoprolol for blood pressure management. - Continue current antihypertensive regimen. 4. Obstructive sleep apnea syndrome (G47.33) REAL managed with CPAP therapy. - Continue CPAP therapy. 5. Pre-diabetes (R73.03) Pre-diabetes managed with metformin and Ozempic; patient is actively working on weight loss. - Continue metformin and Ozempic as prescribed. - Encouraged ongoing weight loss efforts to reduce risk of progression to diabetes and to lower AF recurrence risk. 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 Patient/authorized sales representative [employer] agreed to proceed CONTACT INFORMATION: HUSSAIN Copeland Dr. 's office To schedule an appointment please call --[phone] Other questions or concerns please call his office at -- [phone] Fax#: [phone] [1] Social History Tobacco Use Smoking status: Former Current packs/day: 0.00 Types: Cigarettes Quit date: 2018 Years since quittin.6 Smokeless tobacco: Never Vaping Use Vaping status: Never Used Substance Use Topics Alcohol use: Yes Comment: rarely Drug use: Not Currently documented in this encounter [facility] 12-04-2024 Note HNO ID: [id number] Author: PHYLLIS JAY RN Service: ? Author Type: Registered Nurse Type: Progress Notes Filed: 12/04/2024 12:28 Note Text: THE FOLLOWING WAS EVALUATED Motivation To Learn: Interested Family/Significant Other Support: Unable to assess - Family not present Cognitive Ability: Alert and oriented Patient Learns Best By: Verbal Instruction The Following Influencing Factors Were Barriers To This Education Session: None The Following Physical Limitations Were Barriers To This Education Session: None Instruction Provided To: Patient Procedure: Cardioversion Pre-procedure information reviewed: Patient ID verified Procedure verified Physician verified Explanation of procedure Sedation level during procedure medication instructions from EP lab request Denies missing any doses of Eliquis in last 3 weeks Travel instructions/restrictions Scheduling information Possible same day discharge versus overnight hospital stay Check out time Family waiting area Physician contact with family after procedure Post Procedure Expectations reviewed: Inpatient hospital stay Post procedure antiarrhythmics and anticoagulation will be discussed with Physician, nurse practitioner or Physician certified physician assistant upon discharge Instructions for transmitting EKG to Monitoring [facility] 3 month follow up instructions Contact number for information and questions Patient Evaluation: Verbalizes understanding Follow Up Plan: Follow up as directed by . Supplemental Material Given: Written Material Instructed By Phyllis Jay RN. In Department of CARDIOLOGY. [facility] 12-04-2024 History of Present illness Narrative THE FOLLOWING WAS EVALUATED Motivation To Learn: Interested Family/Significant Other Support: Unable to assess - Family not present Cognitive Ability: Alert and oriented Patient Learns Best By: Verbal Instruction The Following Influencing Factors Were Barriers To This Education Session: None The Following Physical Limitations Were Barriers To This Education Session: None Instruction Provided To: Patient Procedure: Cardioversion Pre-procedure information reviewed: Patient ID verified Procedure verified Physician verified Explanation of procedure Sedation level during procedure medication instructions from EP lab request Denies missing any doses of Eliquis in last 3 weeks Travel instructions/restrictions Scheduling information Possible same day discharge versus overnight hospital stay Check out time Family waiting area Physician contact with family after procedure Post Procedure Expectations reviewed: Inpatient hospital stay Post procedure antiarrhythmics and anticoagulation will be discussed with Physician, nurse practitioner or Physician certified physician assistant upon discharge Instructions for transmitting EKG to Monitoring [facility] 3 month follow up instructions Contact number for information and questions Patient Evaluation: Verbalizes understanding Follow Up Plan: Follow up as directed by . Supplemental Material Given: Written Material Instructed By Phyllis Jay, RN. In Department of CARDIOLOGY. documented in this encounter [place] 12-04-2024 Note Education (EPSMN) ABBEY LOWE ([id number]) 1960 M Date Time Provider Department 12/04/24 JESSICA WINTER EPSMN Reason for Visit: Patient Education [91] Cmt: EPS- DCC During your visit today, we recorded the following information about you: Allergies As of Date: 12/04/2024 Noted Allergy Reaction PENICILLIN 07/18/2018 16 - Unknown Date Reviewed: 03/08/2023 Reviewed by: Miri Cunha RN - Fully Assessed Prescriptions as of 12/04/2024 - apixaban (ELIQUIS) 5 mg tab(s) Take 1 tablet by mouth two times a day. - metoprolol succinate ER (TOPROL XL) 25 [...] Take 20 mg by mouth twice daily. Encounter Status:Closed by PHYLLIS JAY on 12/04/24 [facility] 11-29-2024 Telephone encounter Note EKG received confirming that patient remains in AF, has been scheduled for DCC on 12/05/24. Haroon Barber RN [place] 11-29-2024 Miscellaneous Notes EKG received confirming that patient remains in AF, has been scheduled for DCC on 12/05/24. Haroon Barber RN Images from the original note were not included. Received EKG. This has been uploaded into Epic documented in this encounter [place] 11-29-2024 Telephone encounter Note Images from the original note were not included. Received EKG. This has been uploaded into Epic [place] 11-28-2024 Telephone encounter Note Pt noted to be scheduled for an EKG and OPD on 12/05/24. Arranging DCC for the same day. Monica Daniel RN [place] 11-28-2024 Miscellaneous Notes Pt noted to be scheduled for an EKG and OPD on 12/05/24. Arranging DCC for the same day. Monica Dainel RN Please schedule patient for an EKG and OPD and we will arrange for DCC the same day. Monica Daniel RN ----- Message from aHroon King RN sent at 11/27/2024 3:49 PM EDT ----- Regarding: Please schedule patient for DCC Please schedule patient for DCC. Timeframe: now Date of last H&P: Needs scheduled, would like DCC same day Three weeks uninterrupted anticoagulation: Yes, on eliquis with no missed doses in the last 3 weeks RYANN needed: No Special instructions: None Haroon Barber RN November 27, 2024 3:49 PM documented in this encounter [place] 11-28-2024 Telephone encounter Note Please schedule patient for an EKG and OPD and we will arrange for DCC the same day. Monica Daniel RN [place] 11-28-2024 Telephone encounter Note ----- Message from Haroon King RN sent at 11/27/2024 3:49 PM EDT ----- Regarding: Please schedule patient for DCC Please schedule patient for DCC. Timeframe: now Date of last H&P: Needs scheduled, would like DCC same day Three weeks uninterrupted anticoagulation: Yes, on eliquis with no missed doses in the last 3 weeks RYANN needed: No Special instructions: None Haroon Barber RN November 27, 2024 3:49 PM [place] 11-26-2024 Telephone encounter Note Images from the original note were not included. EKG has been sent to the office. Patient would like some guidance. This has been scanned into [facility] [place] 11-26-2024 Miscellaneous Notes Images from the original note were not included. EKG has been sent to the office. Patient would like some guidance. This has been scanned into [facility] Patients is calling. is back in AFib and would like to get an EKG done. Apt in Mar. Order faxed to [facility] at [phone] documented in this encounter [place] 11-26-2024 Telephone encounter Note Patients is calling. is back in AFib and would like to get an EKG done. Apt in Mar. Order faxed to [facility] at [phone] [place] 09-03-2024 Telephone encounter Note Call from patient's [...] Transferred her to scheduling office. Lana Magdaleno [facility] 09-03-2024 Miscellaneous Notes Call from patient's requesting [...] office. Lana Magdaleno documented in this encounter [place] 08-07-2024 History of Present illness Narrative Associated Problem(s): Type 2 diabetes mellitus with hyperglycemia, without long-term current use of insulin ([facility]/HCC) Not checking BS and due for A1C. Stick to ADA diet and limit carbs. Associated Problem(s): REAL on CPAP Sleeping well with CPAP and use nightly. The patient is benefiting from PAP therapy. Associated Problem(s): Essential hypertension, benign (CMS/HCC) BP controlled and monitor PRN. Associated Problem(s): AF (paroxysmal atrial fibrillation) (CMS/[facility]) In NSR and continue medication. Follow up [...] were not included. Subjective Patient ID: Abbey Lowe is a 63 y.o. 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 Case History: Dr. Cintron and Jb Bone, DIABETES CLINICAL MANAGER-C referred this patient for consultation as regards [...] He does not take any stimulant medications. [place] Sleepiness Scale: Current total score: 224, Previous total score: 24, and Baseline total score: 224 Quality of Life: Functional Outcomes of Sleep [...] or tired? 4. No TOTAL 40 FOSQ-10??? 2003, Susu Casillas FOSQ-10 - [facility] [id number]-[id number] [place].docx PAP Data Downloaded from Patient's PAP Device [...] pain and palpitat (more content not included)... [facility] 05-21-2024 Telephone encounter Note Returned call to [...] concerns at this time. Haroon Barber RN [place] 05-21-2024 Miscellaneous Notes Returned call to patient's [...] RN May 21, 2024 Patient Contact Number: [phone] (home) [phone] (cell) Patient last seen within the last year No Reason For Call: Other Issue: Patients is calling. They will be traveling to [place] and was wondering if making such a long travel that Mr. Lowe should wear compression socks. Please call to advise. Yara Sutton documented in this encounter [place] 05-21-2024 Telephone encounter Note May 21, 2024 Patient Contact Number: [phone] (home) [phone] (cell) Patient last seen within the last year No Reason For Call: Other Issue: Patients is calling. They will be traveling to [place] and was wondering if making such a long travel that Mr. Lowe should wear compression socks. Please call to advise. Yara Sutton [place] 02-13-2024 History of Present illness Narrative Images from the original note were not included. Subjective Patient ID: Abbey Lowe is a 63 y.o. male who presents [...] Rfl: 1 cholecalciferol (Vitamin D-3) 50 MCG (1999) tablet, TAKE 1 TABLET BY MOUTH EVERY [...] Bonilla DPM documented in this encounter [facility] 02-13-2024 Instructions Radha Bonilla DPM - 02/13/2024 8:30 AM EST As noted documented in this encounter [facility] 02-08-2024 History of Present illness Narrative Associated Problem(s): Type 2 diabetes mellitus with hyperglycemia, without long-term current use of insulin ([facility]) Not checking BS and due for A1C. [...] were not included. Subjective Patient ID: Abbey Lowe is a 63 y.o. male who presents [...] Hemoglobin A1c documented in this encounter [facility] 02-02-2024 History of Present illness Narrative Images from the original note were not included. Subjective Patient ID: Abbey Lowe is a 63 y.o. male who presents [...] Bonilla DPM documented in this encounter [facility] 02-02-2024 Instructions Radha Bonilla DPM - 02/02/2024 3:30 PM EDT Post-procedure instructions as noted documented in this encounter [facility] 01-05-2024 Telephone encounter Note Call from patient requesting refill. Requested Prescriptions Pending Prescriptions Disp Refills metoprolol succinate ER (TOPROL XL) 25 mg 24 hr tablet [Pharmacy Med Name: METOPROLOL SUCC ER 25 MG TAB] 180 tablet 3 Sig: take 1 tablet by mouth twice a day Patient last seen 03/08/23 Yara Sutton [place] 01-05-2024 Miscellaneous Notes Call from patient requesting refill. Requested Prescriptions Pending Prescriptions Disp Refills metoprolol succinate ER (TOPROL XL) 25 mg 24 hr tablet [Pharmacy Med Name: METOPROLOL SUCC ER 25 MG TAB] 180 tablet 3 Sig: take 1 tablet by mouth twice a day Patient last seen 03/08/23 Yara Sutton documented in this encounter [place] 08-08-2023 Telephone encounter Note Electronic request for refill. Requested Prescriptions Pending Prescriptions Disp Refills ELIQUIS 5 mg tab(s) [Pharmacy Med Name: ELIQUIS 5 MG TABLET] 180 tablet 3 Sig: take 1 tablet by mouth twice a day Last office visit in EP was 03/08/2023 Sue Tellez [place] 08-08-2023 Miscellaneous Notes Electronic request for refill. Requested Prescriptions Pending Prescriptions Disp Refills ELIQUIS 5 mg tab(s) [Pharmacy Med Name: ELIQUIS 5 MG TABLET] 180 tablet 3 Sig: take 1 tablet by mouth twice a day Last office visit in EP was 03/08/2023 Sue Tellez documented in this encounter [place] 03-08-2023 History of Present illness Narrative Images from the original note were not included. [facility] [place] Josi Apodaca Department of Cardiovascular Medicine SECTION OF CARDIAC PACING and ELECTROPHYSIOLOGY OUTPATIENT VISIT DATE March 08, 2023 OUTPATIENT VISIT TYPE ESTABLISHED PRIMARY CARE PHYSICIAN: Michael Spangler MD ([facility]) [address] [place] [address] REFERRING PHYSICIAN: No referring provider defined for this encounter. CHIEF COMPLAINT: AF HISTORY OF PRESENT ILLNESS/NURSING INTAKE HISTORY: Mr. Lowe is a 62 year old male who [...] and confirmed the findings of the Physician Wallpaperer/Nurse Practitioner or fellow/resident above, with the addition [...] OF PRESENT ILLNESS/ PLAN AND RECOMMENDATIONS: Mr. Lowe is a 62 year old male who [...] Jessica Winter MD documented in this encounter [place] 01-14-2023 Miscellaneous Notes Call from patient requesting refill. Requested Prescriptions Pending Prescriptions Disp Refills metoprolol succinate ER (TOPROL XL) 25 mg 24 hr tablet 180 tablet 3 Sig: Take 1 tablet by mouth two times a day. Patient last seen 03/11/22 Yara Sutton documented in this encounter [place] 09-22-2022 Note Chief Complaint consultation for colonoscopy [...] Heart disease: Fa (more content not included)... [facility] Comment on above: Result Comment: Elec tronically Signed By: BRIGETTE KNOWLES, Terrence Avendaño\Date and Time Signed: 09/22/22 20:37 EDT 03-11-2022 History of Present illness Narrative Study Name: IRB 20-461 [facility] AF PI: Dr. Shannon Dozier Study Visit: [...] locations: N/A Zio Patch monitor placed by Instructor Psychiatric Aide: Yes Informed patient that this was his final study visit and that he needs to continue his SOC treatments and visits per MD direction. He verbalized understanding. Transfer And Pumphouse Operator: Leny Leon Pager #: [phone] documented in this encounter [place] 01-08-2022 Miscellaneous Notes Call from pharmacy requesting refill. Requested Prescriptions Pending Prescriptions Disp Refills metoprolol succinate ER (TOPROL XL) 25 mg 24 hr tablet [Pharmacy Med Name: METOPROLOL SUCC ER 25 MG TAB] 180 tablet 3 Sig: TAKE 1 TABLET BY MOUTH TWICE A DAY Patient last seen 09/24/21 Amee Fabian [facility] documented in this encounter [place] 10-07-2021 Note [facility] [place] [place] NAME: ABBEY LOWE DATE OF : MEDICAL REC#: [id number] STUDIO PRODUCER: Kamilah FUENTES [facility] ADMIT DATE: 10/07/2021 06:32:00 AIRCRAFT COMMUNICATOR DATE: 10/07/2021 23:54 DICTATING PHYSICIAN: TERRENCE MACHUCA DICTATION DATE: 10/07/2021 08:16 OPERATIVE NOTE OPERATION [...] as tattooing of the base. SURGEON: Terrence Machuca M.D. ANESTHESIA: Monitored anesthesia care. ESTIMATED BLOOD [...] . Electronically Authenticated and Edited by: Terrence Machuca MD on 10/12/2021 05:16 PM EDT IFC Signed and Approved by: DR TERRENCE MACHUCA . 10/12/2021 17:16:00 [facility] 09-24-2021 History of Present illness Narrative EVENT MONITOR DISPOSABLE PATCH INSTRUCTIONS Patient Name: Abbey Lowe Clinic Number: [id number] Skin prepped and cleansed with alcohol Patch secured to prepped area Monitor Activated Serial #: [id number] Patient Instructed: 1.) Prescribed order timeframe 2.) Bathing guidelines 3.) Usage of event button and diary documentation 4.) Return of monitor at the end of prescribed order 5.) Call with problems [phone] or [phone]. [phone] Patient expresses a good understanding of instructions Nighat EDGE documented in this encounter [place] 09-24-2021 History of Present illness Narrative Images from the original note were not included. [facility] [place] Josi Apodaca Department of Cardiovascular Medicine SECTION OF CARDIAC PACING and ELECTROPHYSIOLOGY OUTPATIENT VISIT DATE September 24, 2021 OUTPATIENT VISIT TYPE ESTABLISHED PRIMARY CARE PHYSICIAN: Michael Spangler MD ([facility]) [address] [place] [address] CHIEF COMPLAINT: AF HISTORY OF PRESENT ILLNESS/NURSING INTAKE HISTORY: Mr. Lowe is a 61 year old male who [...] edema, palpitations, PND, lightheadedness or syncope. Abbey Lowe is taking Eliquis for stroke prophylaxis without bleeding complications. He has a [id number]-[id number] score of 1 for hypertension. 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 Lowe is a 61 year old male who [...] edema, palpitations, PND, lightheadedness or syncope. Abbey Lowe is taking Eliquis for stroke prophylaxis without bleeding complications. He has a [id number] score of 1 for hypertension. EKG today: Doing very well post ablation with no recurrence. Continue current medications and follow-up in 6 months or sooner if needed. I personally interviewed, confirmed and edited the above information as obtained by others. CONTACT INFORMATION: Jessica Winter MD documented in this encounter [place] 09-21-2021 Miscellaneous Notes Electronic request for refill. Pending Prescriptions Disp Refills ELIQUIS 5 MG TABLET 180 tablet 3 Sig: TAKE 1 TABLET BY MOUTH TWICE A DAY LENA: Yes Last office visit in was 06/23/2021 Sue Tellez documented in this encounter [place] 07-09-2021 Miscellaneous Notes Mr. Lowe has two months' worth of Eliquis at home and may be able to discontinue after his f/u visit with Dr. Winter. He will discuss at his visit. Kristyn Pretty RN Mr. Lowe returned nurse call, asking to be contacted Amee Fabian [facility] Images from the original note were not included. Full fax scanned into [employer]. documented in this encounter [place] 07-02-2021 Miscellaneous Notes PA submitted via [employer]. Isidra De Jesus RN Images from the original note were not included. documented in this encounter [place] 06-23-2021 History of Present illness Narrative HOLTER MONITOR APPLICATION Patient Name: Abbey Lowe [facility] Number: [id number] Chest is cleansed with alcohol Skin prep [...] or 48 hours 6.) Call with problems [phone] OR [phone] Patient expresses good verbal understanding of instructions GIUSEPPE Garcia documented in this encounter [place] 06-23-2021 History of Present illness Narrative Study Name: IRB 20-461 [facility] PI: Dr. Shannon Dozier Study Visit: Follow Up I met with the patient for the 3 Month visit for the [facility] Study. The patient re-consented the study today. [...] visits: No Zio Patch monitor placed by Instructor Psychiatric Aide: Yes Discussed with the patient the importance of follow up in the study and time of next required study visit. He verbalized understanding. The patient prefers 6-month follow up in person. Patient contact information reaffirmed and updated. Coordinator contact information provided to the patient. Education provided: Follow up requirements/schedule Materials dispensed: None Transfer And Pumphouse Operator: Mariah Cavazos PA-C Pager #: [phone] documented in this encounter [place] 06-23-2021 Nurse Note 1. How often on [...] Miri Cunha RN documented in this encounter [place] 06-23-2021 History of Present illness Narrative Images from the original note were not included. [facility] [place] Josi Apodaca Department of Cardiovascular Medicine SECTION OF CARDIAC PACING and ELECTROPHYSIOLOGY OUTPATIENT VISIT DATE June 23, 2021 OUTPATIENT VISIT TYPE ESTABLISHED PRIMARY CARE PHYSICIAN: Michael Spangler MD ([facility]) [address] [place] [address] CHIEF COMPLAINT: AF HISTORY OF PRESENT ILLNESS/NURSING INTAKE HISTORY: Mr. Lowe is a 60 year old male who [...] status: Former Smoker Types: Cigarettes Quit date: 2018 Years since quittin.2 Smokeless tobacco: Never Used [...] HISTORY OF PRESENT ILLNESS/NURSING INTAKE HISTORY: Mr. Lowe is a 60 year old male who [...] AAD Not applicable documented in this encounter [place] Evaluation + Plan note No data available for this section General Surgery [place] Evaluation note Diagnosis IRB 20-801 [facility] PI: Dr. Shannon Dozier- Primary [place]* Diagnosis Atrial fibrillation, persistent (HCC)- Primary Atrial fibrillation [place] in [place]* Diagnosis Atrial fibrillation, persistent (HCC) Atrial fibrillation [facility] [place] Diagnosis Persistent atrial fibrillation (HCC)- Primary Atrial fibrillation IRB 2046 [facility] PI: Dr. Shannon Dozier [place] in this [place]* Diagnosis Atrial fibrillation, persistent (HCC)- Primary [facility]rial [facility] Atrial fibrillation, persistent (HCC)- Primary Atrial fibrillation Obstructive sleep apnea syndrome Obstructive sleep apnea (adult) (pediatric) Left atrial thrombus Other ill-defined heart disease Ejection fraction < 50% Other symptoms involving cardiovascular system [facility] Diagnosis Persistent atrial fibrillation (HCC)- Primary Atrial fibrillation IRB 2046 [facility] PI: Dr. Shannon Dozier [facility] [place] [facility] Diagnosis IRB 46 [facility] PI: Dr. Shannon Dozier- Primary [facility] [place]* Diagnosis Persistent atrial fibrillation (HCC)- Primary Atrial fibrillation Primary hypertension Unspecified essential hypertension [facility] [place] [facility]* Diagnosis Type 2 diabetes mellitus with [...] in walking [facility] Diagnosis Type 2 diabetes mellitus with [...] esophagitis Esophageal reflux [facility] Diagnosis Type 2 diabetes mellitus with [...] Dermatophytosis of nail [facility] Diagnosis Type 2 diabetes mellitus with [...] health care facility [facility]* Diagnosis Persistent atrial fibrillation (HCC)- Primary Atrial fibrillation [facility] [place] Diagnosis Persistent atrial fibrillation (HCC)- Primary Atrial fibrillation [facility] [place] [facility]* Diagnosis Persistent atrial fibrillation (HCC)- Primary Atrial fibrillation documented in this encounter [facility] note* Diagnosis Persistent atrial fibrillation (HCC)- Primary Atrial fibrillation Primary hypertension Unspecified essential hypertension Chronic anticoagulation Long-term (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 Obstructive sleep apnea syndrome Obstructive sleep apnea (adult) (pediatric) Pre-diabetes Other abnormal glucose documented in this encounter [facility] Discharge instructions No data available for this section General Surgery [place] Progress note No data available for this section [facility] [place] Reason for referral (narrative)* Outpatient Procedure (Routine) - Pending Review Specialty Diagnoses / Procedures Referred By Gagan alvarez Referred To [facility] [place] Diagnoses Atrial fibrillation, persistent (HCC) Procedures ECHO ECHO TTHRC R-T 2D W/WOM-MODE COMPL SPEC&COLR D Jessica Winter MD [address] [place] [address] [place] [address] Referral ID Status Reason Start Date Expiration Date Visits Requested Visits Authorized [id number] Pending Review Auto-Generat ed Referral 06/23/2021 06/23/2022 1 1 [facility] for referral (narrative)* Outpatient Procedure (Routine) - Authorized Specialty Diagnoses / Procedures Referred By Gagan alvarez Referred To [facility] Diagnoses Persistent atrial fibrillation (HCC) Research study patient Procedures ECG COMPLETE ECG ROUTINE ECG W/LEAST 12 LDS W/I&R Jessica Winter MD [address] [place] [address] [address] Referral ID Status Reason Start Date Expiration Date Visits Requested Visits Authorized [id number] Authorized Auto-Generat ed Referral 06/24/2021 06/24/2022 1 1 [facility] for referral (narrative)* Outpatient Procedure (Routine) - Authorized Specialty Diagnoses / Procedures Referred By Gagan alvarez Referred To Contact [facility] Diagnoses Persistent atrial fibrillation (HCC) Research study patient Procedures ECG COMPLETE ECG ROUTINE ECG W/LEAST 12 LDS W/I&R Jessica Winter MD [id number] [place] [address] Referral ID Status Reason Start Date Expiration Date Visits Requested Visits Authorized [id number] Authorized Auto-Generat ed Referral 09/30/2021 09/30/2022 1 1 [facility] for referral (narrative)* Transition of Care (Routine) - Authorized Specialty Diagnoses / Procedures Referred By Gagan alvarez Referred To Contact [facility] Tsering Saenz APRN.CNP [address] [id number] Phone: tel: fax: [place] [phone] Referral ID Status Reason Start Date Expiration Date Visits Requested Visits Authorized [id number] Authorized PCP Requested Referral 12/05/2024 12/05/2025 1 1 [place] Summary Purpose Family History No Family History Records FoundNo Family History Records FoundNo Family History Records FoundNo Family History Records FoundNo Family History Records FoundNo Family History Records Found Advance Directives No Advanced Directives Records FoundDocuments on File Type Date Recorded Patient 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 Machine Feeder Expl anation Advance Directive(s) 01/14/2021 9:41 AM Advance Directive(s) 01/13/2021 9:43 AM Advance Directive(s) 11/06/2020 9:05 AM Advance Directive(s) 11/13/2018 5:12 AM Advance Directive(s) 10/27/2018 12:26 PM Advance Directive(s) 08/14/2018 10:04 AM Advance Directive(s) 07/31/2018 11:29 AM Documents on File Type Date Recorded Patient 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 Feeder Expl anation Advance Directive(s) 01/14/2021 9:41 AM Advance Directive(s) 01/13/2021 9:43 AM Advance Directive(s) 11/06/2020 9:05 AM Advance Directive(s) 11/13/2018 5:12 AM Advance Directive(s) 10/27/2018 12:26 PM Advance Directive(s) 08/14/2018 10:04 AM Advance Directive(s) 07/31/2018 11:29 AM Reason for Referral Specialty Diagnoses / Procedures Referred By Contac t Referred To Contact Procedures CARDIOVASCULAR MEDICINE OP FOLLOW UP APPT ORDER Jessica Winter MD [address] [place] [address] Referral ID Status Reason Start Date Expiration Date Visits Requested Visits Authorized [id number] Ref Not Required PCP Requested Referral 03/08/2023 03/07/2024 1 1 Additional Source Comments (unrecognized sect ion and content) No Status Records FoundNo Status Records FoundNo Status Records FoundNo Status Records FoundNo Status Records FoundNo Status Records Found INFORMATION SOURCE (unrecogn ized section and content) DATE CREATED AUTHOR 04/27/[address] [facility] DATE CREATED AUTHOR AUTHOR'S ORGANIZ ATION 02/20/2022 [facility] DATE CREATED AUTHOR AUTHOR'S ORGANIZ ATION 11/18/2022 [facility] DATE CREATED AUTHOR AUTHOR'S ORGANIZ ATION 06/01/[address] [facility] DATE CREATED AUTHOR AUTHOR'S ORGANIZ ATION 08/10/2024 [facility] DATE CREATED AUTHOR AUTHOR'S ORGANIZ ATION 01/06/2025 [facility] Source Comments (unrecognize d section and content) In the event this informatio n is protected by the Federal Confidentiality of Alcohol and Drug Abuse Patient Records regulations: The Federal rules restrict any use of the information to criminally investigate or prosecute any alcohol or drug abuse patient.[place] the event this information is protected by the Federal Confidentiality of Alcohol and Drug Abuse Patient Records regulations: The Federal rules restrict any use of the information to criminally investigate or prosecute any alcohol or drug abuse patient.[place] the event this information is protected by the Federal Confidentiality of Alcohol and Drug Abuse Patient Records regulations: The Federal rules restrict any use of the information to criminally investigate or prosecute any alcohol or drug abuse patient.[place] the event this information is protected by the Federal Confidentiality of Alcohol and Drug Abuse Patient Records regulations: The Federal rules restrict any use of the information to criminally investigate or prosecute any alcohol or drug abuse patient.[place] the event this information is protected by the Federal Confidentiality of Alcohol and Drug Abuse Patient Records regulations: The Federal rules restrict any use of the information to criminally investigate or prosecute any alcohol or drug abuse patient.[place] the event this information is protected by the Federal Confidentiality of Alcohol and Drug Abuse Patient Records regulations: The Federal rules restrict any use of the information to criminally investigate or prosecute any alcohol or drug abuse patient.[place] the event this information is protected by the Federal Confidentiality of Alcohol and Drug Abuse Patient Records regulations: The Federal rules restrict any use of the information to criminally investigate or prosecute any alcohol or drug abuse patient.[place] the event this information is protected by the Federal Confidentiality of Alcohol and Drug Abuse Patient Records regulations: The Federal rules restrict any use of the information to criminally investigate or prosecute any alcohol or drug abuse patient.[place] the event this information is protected by the Federal Confidentiality of Alcohol and Drug Abuse Patient Records regulations: The Federal rules restrict any use of the information to criminally investigate or prosecute any alcohol or drug abuse patient.[place] the event this information is protected by the Federal Confidentiality of Alcohol and Drug Abuse Patient Records regulations: The Federal rules restrict any use of the information to criminally investigate or prosecute any alcohol or drug abuse patient.[place] the event this information is protected by the Federal Confidentiality of Alcohol and Drug Abuse Patient Records regulations: The Federal rules restrict any use of the information to criminally investigate or prosecute any alcohol or drug abuse patient.[place] the event this information is protected by the Federal Confidentiality of Alcohol and Drug Abuse Patient Records regulations: The Federal rules restrict any use of the information to criminally investigate or prosecute any alcohol or drug abuse patient.[place] the event this information is protected by the Federal Confidentiality of Alcohol and Drug Abuse Patient Records regulations: The Federal rules restrict any use of the information to criminally investigate or prosecute any alcohol or drug abuse patient.[place] the event this information is protected by the Federal Confidentiality of Alcohol and Drug Abuse Patient Records regulations: The Federal rules restrict any use of the information to criminally investigate or prosecute any alcohol or drug abuse patient.[place] the event this information is protected by the Federal Confidentiality of Alcohol and Drug Abuse Patient Records regulations: The Federal rules restrict any use of the information to criminally investigate or prosecute any alcohol or drug abuse patient.[place] the event this information is protected by the Federal Confidentiality of Alcohol and Drug Abuse Patient Records regulations: The Federal rules restrict any use of the information to criminally investigate or prosecute any alcohol or drug abuse patient.[place] the event this information is protected by the Federal Confidentiality of Alcohol and Drug Abuse Patient Records regulations: The Federal rules restrict any use of the information to criminally investigate or prosecute any alcohol or drug abuse patient.[place] the event this information is protected by the Federal Confidentiality of Alcohol and Drug Abuse Patient Records regulations: The Federal rules restrict any use of the information to criminally investigate or prosecute any alcohol or drug abuse patient.[place] the event this information is protected by the Federal Confidentiality of Alcohol and Drug Abuse Patient Records regulations: The Federal rules restrict any use of the information to criminally investigate or prosecute any alcohol or drug abuse patient.[place] the event this information is protected by the Federal Confidentiality of Alcohol and Drug Abuse Patient Records regulations: The Federal rules restrict any use of the information to criminally investigate or prosecute any alcohol or drug abuse patient.[place] the event this information is protected by the Federal Confidentiality of Alcohol and Drug Abuse Patient Records regulations: The Federal rules restrict any use of the information to criminally investigate or prosecute any alcohol or drug abuse patient.[place] the event this information is protected by the Federal Confidentiality of Alcohol and Drug Abuse Patient Records regulations: The Federal rules restrict any use of the information to criminally investigate or prosecute any alcohol or drug abuse patient.[place] the event this information is protected by the Federal Confidentiality of Alcohol and Drug Abuse Patient Records regulations: The Federal rules restrict any use of the information to criminally investigate or prosecute any alcohol or drug abuse patient.[place] the event this information is protected by the Federal Confidentiality of Alcohol and Drug Abuse Patient Records regulations: The Federal rules restrict any use of the information to criminally investigate or prosecute any alcohol or drug abuse patient.[place] the event this information is protected by the Federal Confidentiality of Alcohol and Drug Abuse Patient Records regulations: The Federal rules restrict any use of the information to criminally investigate or prosecute any alcohol or drug abuse patient.[place] the event this information is protected by the Federal Confidentiality of Alcohol and Drug Abuse Patient Records regulations: The Federal rules restrict any use of the information to criminally investigate or prosecute any alcohol or drug abuse patient.[place] the event this information is protected by the Federal Confidentiality of Alcohol and Drug Abuse Patient Records regulations: The Federal rules restrict any use of the information to criminally investigate or prosecute any alcohol or drug abuse patient.[place] Reason for Visit (unrecogniz ed section and [...] Onset Date Comments Refill Request 09/03/2024 Eliquis Reason Comments Patient Update Back in AFib Reason Comments Appointment Cardioversion Reason Comments Received Outside Medical Records EKG Reason Comments Patient Education [facility]- [facility] Care Teams (unrecognized sec tion and content) Coating Machine Operator Relationship Specialty Start Date End Date Michael Spangler [address] [place] [address] PCP - General Family Practice 07/18/18 Donavon Morales [address] [place] [address] Referring Cardiology 07/06/18 Coating Machine Operator Relationship Specialty Start Date End Date Michael Spangler [address] [place] [address] PCP - General Family Practice 07/18/18 Donavon Morales [address] [place] [address] Referring Cardiology 07/06/18 Coating Machine Operator Relationship Specialty Start Date End Date Michael Spangler [address] [place] [address] PCP - General Family Practice 07/18/18 Donavon Morales [address] [place] [address] Referring Cardiology 07/06/18 Coating Machine Operator Relationship Specialty Start Date End Date Michael Spangler [address] [place] [address] PCP - General Family Practice 07/18/18 Donavon Morales [address] [place] [facility] [address] Referring Cardiology 07/06/18 Coating Machine Operator Relationship Specialty Start Date End Date Michael Spangler [place] [address] [place] [address] PCP - General Family Practice 07/18/18 Donavon Morales [address] [place] [facility] [address] Referring Cardiology 07/06/18 Coating Machine Operator Relationship Specialty Start Date End Date Micheal Spangler [address] [place] [address] PCP - General Family Practice 07/18/18 Donavon Morales [address] [place] [facility] [address] Referring Cardiology 07/06/18 Coating Machine Operator Relationship Specialty Start Date End Date Crys Michael Colt [address] [place] [address] PCP - General Family Practice 07/18/18 Donavon Morales [address] [place] [facility] [address] Referring Cardiology 07/06/18 Coating Machine Operator Relationship Specialty Start Date End Date Michael Spangler Colt [address] [place] [address] PCP - General Family Practice 07/18/18 Donavon Morales [address] [place] [facility] [address] Referring Cardiology 07/06/18 Coating Machine Operator Relationship Specialty Start Date End Date Michael Spangler [address] [place] [address] PCP - General Family Practice 07/18/18 Donavon Morales [address] [place] [facility] [address] Referring Cardiology 07/06/18 Coating Machine Operator Relationship Specialty Start Date End Date Michael Spangler [address] [place] [address] PCP - General Family Practice 07/18/18 Donavon Morales [address] [place] [facility] [address] Referring Cardiology 07/06/18 Coating Machine Operator Relationship Specialty Start Date End Date Michael Spangler [address] [place] [address] PCP - General Family Medicine 07/18/18 Donavon Morales [address] [place] [facility] [address] Referring Cardiology 07/06/18 Coating Machine Operator Relationship Specialty Start Date End Date Michael Spangler [address] [place] [address] PCP - General Family Medicine 07/18/18 Donavon Morales [address] [place] [facility] [address] Referring Cardiology 07/06/18 Coating Machine Operator Relationship Specialty Start Date End Date Michael Spangler [address] [place] [address] PCP - General Family Medicine 07/18/18 Donavon Morales MD [address] [place] [facility] [address] Referring Cardiology 07/06/18 Coating Machine Operator Relationship Specialty Start Date End Date Michael Spangler [address] [place] [address] PCP - General Family Medicine 07/18/18 Donavon Morales MD [address] [place] [facility] [address] Referring Cardiology 07/06/18 Coating Machine Operator Relationship Specialty Start Date End Date Michael Spangler [address] [place] [address] PCP - General Family Medicine 07/18/18 Donavon Morales MD [address] [place] [facility] [address] Referring Cardiology 07/06/18 Coating Machine Operator Relationship Specialty Start Date End Date Michael Spangler [address] [place] [address] PCP - General Family Medicine 07/18/18 Donavon Morales MD [address] [place] [facility] [address] Referring Cardiology 07/06/18 Coating Machine Operator Relationship Specialty Start Date End Date Michael Spangler [address] [place] [address] PCP - General Family Medicine 07/18/18 Donavon Morales MD [address] [place] [facility] [address] Referring Cardiology 07/06/18 Coating Machine Operator Relationship Specialty Start Date End Date Michael Spangler MD [address] [place] [address] PCP - [employer] 04/04/23 Michael Spangler MD [address] [place] [address] PCP - General Family Medicine 08/10/23 Coating Machine Operator Relationship Specialty Start Date End Date Michael Spangler MD [address] [place] [address] PCP - [employer] 04/04/23 Michael Spangler MD [address] [place] [address] PCP - General Family Medicine 08/10/23 Coating Machine Operator Relationship Specialty Start Date End Date Michael Spangler MD [address] [place] [address] PCP - [employer] 04/04/23 Michael Spangler MD [address] [place] [address] PCP - General Family Medicine 08/10/23 Coating Machine Operator Relationship Specialty Start Date End Date Michael Spangler MD [address] [place] [address] PCP - [employer] 04/04/23 Michael Spangler MD [address] [place] [address] PCP - General Family Medicine 08/10/23 Coating Machine Operator Relationship Specialty Start Date End Date Michael Spangler MD [address] [place] [address] PCP - [employer] 04/04/23 Michael Spangler MD [address] [place] [address] PCP - General Family Medicine 08/10/23 Coating Machine Operator Relationship Specialty Start Date End Date Michael Spangler MD [address] [place] [address] PCP - [employer] 04/04/23 Michael Spangler MD [address] [place] [address] PCP - General Family Medicine 08/10/23 Coating Machine Operator Relationship Specialty Start Date End Date Michael Spangler MD [address] [place] [address] PCP - [employer] 04/04/23 Michael Spangler MD [address] [place] [address] PCP - General Family Medicine 08/10/23 Coating Machine Operator Relationship Specialty Start Date End Date Michael Spangler MD [address] [place], [place] [id number] PCP - General Family Medicine 07/18/18 Donavon Mroales MD [address] [place] [address] Referring Cardiology 07/06/18 Coating Machine Operator Relationship Specialty Start Date End Date Michael Spangler MD [address] [place] [address] PCP - [employer] 04/04/23 Michael Spangler MD [address] [place] [address] PCP - General Family Medicine 08/10/23 Coating Machine Operator Relationship Specialty Start Date End Date Michael Spangler MD [address] [place] [address] PCP - [employer] 04/04/23 Michael Spangler MD [address] [place] [address] PCP - General Family Medicine 08/10/23 Coating Machine Operator Relationship Specialty Start Date End Date Michael Spangler MD [address] [place] [address] PCP - [employer] 04/04/23 Michael Spangler MD [address] [place] [address] PCP - General Family Medicine 08/10/23 Coating Machine Operator Relationship Specialty Start Date End Date Michael Spangler MD [address] [place], [place] [id number] PCP - General Family Medicine 07/18/18 Donavon Morales MD [address] [place] [address] Referring Cardiology 07/06/18 Coating Machine Operator Relationship Specialty Start Date End Date Michael Spangler MD [address] [place] [address] PCP - General Family Medicine 07/18/18 Donavon Morales MD [address] [place] [address] Referring Cardiology 07/06/18 Coating Machine Operator Relationship Specialty Start Date End Date Michael Spangler MD [address] [place] [address] PCP - General Family Medicine 07/18/18 Donavon Morales MD [address] [place] [address] Referring Cardiology 07/06/18 Coating Machine Operator Relationship Specialty Start Date End Date Michael Spangler MD [address] [place] [address] PCP - General Family Medicine 07/18/18 Donavon Morales MD [address] [place] [address] Referring Cardiology 07/06/18 Jessica Winter [facility] [address] [facility] [place] [place] [address] Cardiology 11/26/24 Coating Machine Operator Relationship Specialty Start Date End Date Michael Spangler MD [address] [place] [address] PCP - [facility] 04/04/23 Michael Spangler MD [address] [place] [address] PCP - General Family Medicine 08/10/23 Coating Machine Operator Relationship Specialty Start Date End Date Michael Spangler MD [address] [place] [address] PCP - General Family Medicine 07/18/18 Donavon Morales MD [address] [place] [address] Referring Cardiology 07/06/18 Jessica Winter MD [address] [place] [address] Cardiology 11/26/24 Coating Machine Operator Relationship Specialty Start Date End Date Michael Spangler MD [address] [place] [address] PCP - General Family Medicine 07/18/18 Donavon Morales MD [address] [place] [address] Referring Cardiology 07/06/18 Jessica Winter MD [address] [place] [address] Cardiology 11/26/24 Coating Machine Operator Relationship Specialty Start Date End Date Michael Spangler MD [address] [place] [address] PCP - General Family Medicine 07/18/18 Donavon Morales MD [address] [place] [address] Referring Cardiology 07/06/18 Jessica Winter MD [address] [place] [address] Cardiology 11/26/24 Coating Machine Operator Relationship Specialty Start Date End Date Michael Spangler MD [address] [place] [address] PCP - General Family Medicine 07/18/18 Donavon Morales MD [address] [place] [address] Referring Cardiology 07/06/18 Jessica Winter MD [address] [place] [address] Cardiology 11/26/24 Jessica Winter MD [address] [place] [address] Primary Staff Physician Cardiology 12/05/24 FOR RECORDS PERTAINING TO PATIENTS WHO ARE [...] BE BASED ON THE PRIMARY CLINICAL RECORDS. [employer] [facility]. provides no warranty or guarantee of the accuracy or completeness of information in this document.
== END 2025-01-07 13:09 | disposition home or self-care (01) ==
LOC: RAD 13:09
PROVIDERS: PCP Family Medicine; Visit Provider Family Medicine
DX: M25.561 Pain in right knee (principal)
CPT/HCPCS: 73564

== ENCOUNTER 2025-01-15 14:33 | Outpatient (RCR) | payer BC, SELFPAY | END 2025-02-02 15:02 | disposition home or self-care (01) | LOC: PT 14:33 | PROVIDERS: PCP Family Medicine; Visit Provider Family Medicine | DX: M25.561 Pain in right knee (principal); M79.604 Pain in right leg | CPT/HCPCS: 97014; 97110; 97140; 97161 ==

== ENCOUNTER 2025-03-01 08:07 | Outpatient (OUT) | payer BC, SELFPAY ==
--- OUTSIDE RECORDS SUMMARY | 2025-03-01 08:10 | XMS_ITS | CCD ---
Author Organization [facility] CliniSyil Care Team Providers Care Waterproofer Helper Name Role Phone UNKNOWN, PROVIDER Admitting Unavailable UNKNOWN, PROVIDER Attending Unavailable MICHAEL SPANGLER Referring Unavailable DANYELERELinda, MICHAEL Primary Care Unavailable Donavon Morales Unavailable Michael Spangler Primary Care Provider MICHAEL SPANGLER Primary Care Physician Donavon Morales Unavailable Michael Spangler Primary Care Provider [phone] SHAIKH Selwyn MERCEDES Admitting Unavailable SHAIKH Selwyn MERCEDES Attending Unavailable NADERELinda, DR MICHAEL Gregory Primary [...] Gregory Consulting Unavailable MAGO, H Admitting Unavailable SHAIKH Selwyn MERCEDES Attending Unavailable NADERELinda, DR MICHAEL Gregory Primary Care Unavailable WEST, DR EMBER Brambila Consulting Unavailable LUNDBERGCLAUDIO Consulting Unavailable FAWZEYAD, H Consulting Unavailable NADERER, DR MICHAEL Gregory Admitting Unavailable NADERER, DR MICHAEL Gregory Attending Unavailable NADERER, DR MICHAEL Gregory Primary Care Unavailable NADERER, DR MICHAEL Gregory Consulting Unavailable Donavon Morales Unavailable Michael Spangler Primary Care Provider [phone] Terrence MACHUCA Attending Unavailable BRIGETTE, Terrence Mckeon [...] Winter MD Unavailable Jessica Winter MD Unavailable [phone] Michael Spangler MD Primary Care Provider Jessica Winter MD Attending Provider [phone] Michael Spangler MD Attending Provider Michael Spangler MD Primary Care Provider Michael Spangler MD Unavailable Michael Spangler MD Primary Care Provider TSERING SAENZ Attending Unavailable LUCILLE WINTERSSAMA M Referring Unavailable MICHAEL SPANGLER Primary Care Unavailable LUCILLE WINTERSSAMA M Referring Unavailable MICHAEL SPANGLER Primary Care Unavailable LEE ANN OUSSAMA Fernando Admitting Unavailable LUCILLE WINTERSSHUSSEIN M Attending Unavailable MICHAEL SPANGLER Primary Care Unavailable LEE ANN OUSSAMA M Referring Unavailable MICHAEL SPANGLER Primary Care Unavailable Michael Spangler MD Primary Care Provider Jessica Winter MD Attending Provider Michael Spangler MD Attending Provider [phone] Allergies Allergy ClassificationReported Allergen(s)Allergy TypeDate of OnsetReaction(s) Facility (2 sources)Penicillins; 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: [PENICILLINS]Drug allergy (disorder) 62-35-1418[facility] Repository (5 sources)Penicillin; 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: [penicillin]Drug Vcakfbq20-56-7817Vsdytfo (qualifier value)General Surgery [place] (17 sources)PenicillinsDrug Nxnyppi22-08-9921Qjhzj, UnknownNOMS Healthcare Medications Current Medications MedicationDrug Class(es)DatesSig (Normalized)Sig (Original)apixaban 5 mg oral tablet (20 sources)Factor Xa InhibitorStart: 96-67-7400clbq 1 tablet by mouth twice dailyApixaban 5 mg tablet Active 5 MG PO Twice daily January 02, 2025 11:00pm Complies with drug therapyStart: 08-23-2022 End: 82-49-8299ykqy 1 tablet by mouth twice dailyapixaban (ELIQUIS) 5 mg tab(s) Indications: Persistent atrial fibrillation (HCC) Take 1 tablet by mouth two times a day. 180 tablet 3 09/03/2024 ActiveStart: 09-03-2020 End: 08-84-2854qyyt 1 tablet by mouth twice dailyELIQUIS 5 mg tab(s) TAKE 1 TABLET BY MOUTH TWICE A DAY 180 tablet 3 09/21/2021 ActiveComment on above:Take 1 tablet by mouth twice daily.TAKE 1 TABLET BY MOUTH TWICE A DAYatorvastatin 40 mg oral tablet (19 sources)HMG-CoA Reductase InhibitorStart: 01-03-2025 End: 81-28-2669zbxa 1 tablet by mouth once daily at bedtimeAtorvastatin 40 mg tablet Active 40 MG PO Daily at bedtime 30 January 28, 2025 9:52am Complies with drug therapyStart: 41-58-7032ycwf 1 tablet by mouth once daily at bedtime atorvastatin (Lipitor) 40 MG tablet Indications: Type 2 diabetes mellitus with hyperglycemia, without long-term current use of insulin (HCC) TAKE 1 TABLET BY MOUTH EVERYDAY AT BEDTIME 90 tablet 1 08/06/2024 ActiveStart: 93-25-3271fmxu 1 tablet by mouth at bedtimeatorvastatin (Lipitor) 40 MG tablet Indications: Type 2 diabetes mellitus with hyperglycemia, without long-term current use of insulin (CMS/HCC) TAKE 1 TABLET BY MOUTH AT BEDTIME 90 tablet 1 02/09/2024 ActiveStart: 98-19-4450pbvs 1 tablet by mouth at bedtimeatorvastatin (Lipitor) 40 MG tablet Indications: Type 2 diabetes mellitus with hyperglycemia, without long-term current use of insulin (CMS/HCC) Take 1 tablet (40 mg) by mouth at bedtime 30 tablet 5 08/10/2023 ActiveBlood Glucose Monitoring Suppl (Blood Glucose Monitor System) w/Device kit (3 sources)Start: 67-44-0139Onogz Glucose Monitoring Suppl (Blood Glucose Monitor System) w/Device kit Indications: Type 2 diabetes mellitus with hyperglycemia, without long-term current use of insulin (CMS/HCC) 1 each Daily 1 kit 08/07/2024 ActiveBlood Glucose Monitoring Suppl (OneTouch Verio Reflect) w/Device kit (1 source)Start: 25-27-0575Wbbxz Glucose Monitoring Suppl (OneTouch Verio Reflect) w/Device kit Indications: Type 2 diabetes mellitus with hyperglycemia, without long-term current use of insulin ([facility]) EVERY DAY 1 kit 11/05/2024 Active cholecalciferol 0.05 mg oral tablet (20 sources)Vitamin DStart: 01-03-2025 End: 24-42-1803tsss 1 tablet by mouth once dailyCholecalciferol (Vitamin D3) 50 mcg (2,000 unit) tablet Active 50 MCG PO Daily 30 January 18, 2025 10:55am Complies with drug therapyStart: 52-70-7867aaco 1 tablet by mouth once daily cholecalciferol (Vitamin D-3) 50 MCG (2000 UT) tablet Indications: Vitamin D deficiency, unspecified , Vitamin D deficiency TAKE 1 TABLET BY MOUTH EVERY DAY 30 tablet 5 07/17/2024 ActiveComment on above:Take 2,000 Units by mouth once daily.hydrOXYzine hydrochloride 25 mg oral tablet (13 sources)Antihistamine End: 85-57-9263dpzd 1 tablet by mouth every six hours as neededhydrOXYzine HCl (ATARAX) 25 mg tablet Take 25 mg by mouth four times a day as needed. 12/05/2024 DiscontinuedComment on above:Take 25 mg by mouth four times a day as needed. lisinopril 20 mg oral tablet (20 sources)Angiotensin Converting Enzyme InhibitorStart: 74-11-1153oxri 1 tablet by mouth twice dailyLisinopril 20 mg tablet Active 20 MG PO Twice daily January 02, 2025 11:00pm Complies with drug therapyStart: 72-10-8709jymj 1 tablet by mouth twice dailylisinopril 20 MG tablet Indications: Essential hypertension, benign TAKE 1 TABLET BY MOUTH TWICE A DAY 180 tablet 3 07/02/2024 ActiveComment on above:Take 20 mg by mouth twice daily.24 hr metFORMIN hydrochloride 500 mg extended release oral tablet (20 sources)BiguanideStart: 72-45-8956eamy 1 tablet by mouth twice daily Metformin 500 mg tablet extended release 24 hr Active 500 MG PO Twice daily January 02, 2025 11:00pm Complies with drug therapyStart: 04-05-2023 End: 35-97-7097hlwv 1 tablet by mouth twice dailymetFORMIN XR (Glucophage-XR) 500 MG 24 hr tablet Indications: Type 2 diabetes mellitus with hyperglycemia (HCC) TAKE 1 TABLET BY MOUTH TWICE A DAY 180 tablet 3 02/20/2024 Activetake 1 tablet by mouth twice daily at mealtimemetFORMIN (GLUCOPHAGE) 500 mg tablet Take 500 mg by mouth two times a day with meals. Activetake 1 tablet by mouth once daily at breakfastmetFORMIN (GLUCOPHAGE) 500 mg tablet Take 500 mg by mouth daily with breakfast. 0 ActiveComment on above:Take 500 mg by mouth daily with breakfast.Take 500 mg by mouth two times a day with meals.24 hr metoprolol succinate 25 mg extended release oral tablet (20 sources)beta-Adrenergic BlockerStart: 38-96-7793svns 1 tablet by mouth once dailyMetoprolol Succinate 25 mg tablet extended release 24 hr Active 25 MG PO Daily January 02, 2025 11:00pm Complies with drug therapyStart: 01-17-2023 End: 47-50-4730cdwk 1 tablet by mouth twice dailymetoprolol succinate ER (TOPROL XL) 25 mg 24 hr tablet take 1 tablet by mouth twice a day 180 tablet 3 01/09/2024 ActiveStart: 01-13-2021 End: 22-81-7745botv 1 tablet by mouth twice dailymetoprolol succinate ER (TOPROL XL) 25 mg 24 hr tablet TAKE 1 TABLET BY MOUTH TWICE A DAY 180 tablet 3 01/08/2022 01/14/2023 DiscontinuedStart: 21-26-5204tdgk 1 tablet by mouth once dailymetoprolol 25 mg ER Tab 25 mg = 1 tab(s), Oral, Daily, # 30 tab(s), Refills(s) 0 Start Date: 09/03/20atus: OrderedComment on above:Take 1 tablet by mouth twice daily.TAKE 1 TABLET BY MOUTH TWICE A DAYTake 1 tablet by mouth two times a day.OZEMPIC 1 mg/dose (4 mg/3 mL) pen (13 sources)Start: 74-48-0811KIZVKPV 1 mg/dose (4 mg/3 mL) pen one time a week. 02/14/2023 ActiveStart: 01-80-7680CBDQYLW 1 mg/dose (4 mg/3 mL) pen one time a week. 0 02/14/2023 ActiveComment on above:one time a week.0.25 mg, 0.5 mg dose 1.5 ml semaglutide 1.34 mg/ml pen injector (11 sources)Start: 21-47-6574orthki 0.5 mg by subcutaneous injection every week semaglutide (Ozempic, 0.25 or 0.5 MG/DOSE,) 2 MG/1.5ML solution pen-injector Indications: Type 2 diabetes mellitus with hyperglycemia, without long-term current use of insulin ([facility]) Inject 0.5 mgunder the skin 1 (one) time per week 4 each 5 08/10/2023 ActiveSemaglutide (2 sources)Start: 41-91-5917kphvhe 1 mg by subcutaneous injection every week Semaglutide (Ozempic) 1 mg/dose (4 mg/3 mL) pen injector Active 1 MG SUBCUT every week January 11:00pm Complies with drug therapyStart: 01-03-2025 inject 1 mg by subcutaneous injection every weekSemaglutide (Ozempic) 1 mg/dose (4 mg/3 mL) pen injector Active 1 MG SUBCUT every week January 12:00am Complies with drug therapysemaglutide (Ozempic, 1 MG/DOSE,) 4 MG/3ML solution pen-injector (4 sources)Start: 59-99-5288sianvr 1 mg by subcutaneous injection every week semaglutide (Ozempic, 1 MG/DOSE,) 4 MG/3ML solution pen-injector Indications: Type 2 diabetes mellitus with hyperglycemia, without long-term current use of insulin (HCC) Inject 1 mg under the skin 1 (one) time per week 1 each 08/07/2024 ActiveStart: 53-93-1727xplkfv 1 mg by subcutaneous injection every weeksemaglutide (Ozempic, 1 MG/DOSE,) 4 MG/3ML solution pen-injector Indications: Type 2 diabetes mellitus with hyperglycemia, without long-term current use of insulin (CMS/HCC) Inject 1 mg under the skin 1 (one) time per week 1 each 08/07/2024 ActiveVitamin D3 2000 intl units oral tablet (2 sources)Start: 84-61-1703jfto 1 tablet by mouth once dailyVitamin D3 2000 intl units oral tablet TAKE 1 TABLET BY MOUTH EVERY DAY Start Date: 09/03/20 Status: Ordered Completed/Discontinued Medications MedicationDrug Class(es)DatesSig (Normalized)Sig (Original)meloxicam 15 mg oral tablet (5 sources)Nonsteroidal Anti-inflammatory DrugStart: 12-25-2024 End: 65-25-7079krnp 1 tablet by mouth once dailyMeloxicam 15 mg tablet Discontinued 15 MG PO Daily January 02, 2025 11:00pm January 07, 2025 10:47am Start: 30-43-9439hbpn 1 tablet by mouth once daily at mealtimemeloxicam (Mobic) 15 MG tablet Indications: Plantar fasciitis of right foot Take 1 tablet (15 mg) by mouth Daily Take with food 30 tablet 3 09/07/2024 Activepantoprazole 40 mg delayed release oral tablet (1 source)Proton Pump InhibitorStart: 03-20-2021 End: 97-66-0603wgju 1 tablet by mouth once daily, then take 6 tablets by mouth in the morningpantoprazole DR (PROTONIX) 40 mg tablet Take 1 tablet by mouth DAILY (6 AM). 30 tablet 0 Discontinued (Course of therapy completed)Comment on above:Take 1 tablet by mouth DAILY (6 AM).perflutren lipid microspheres 1.3 mL in NaCl (PF) 0.9% 10 mL injection (DEFINITY) (20 sources)Start: 06-23-2021 End: 90-92-5672fwmupursbi lipid microspheres 1.3 mL in NaCl (PF) 0.9% 10 mL injection (DEFINITY)Start: 06-23-2021 End: 69-21-2638lwlclvtpvv lipid microspheres 1.3 mL in NaCl (PF) 0.9% 10 mL injection (DEFINITY)Start: 03-19-2021 End: 70-62-9805vweutngrks lipid microspheres 1.3 mL in NaCl (PF) 0.9% 10 mL injection (DEFINITY)Start: 03-19-2021 End: 54-82-3739idzyfsmmuf lipid microspheres 1.3 mL in NaCl (PF) 0.9% 10 mL injection (DEFINITY)Start: 12-05-2020 End: 45-19-0324vtuuaipebv lipid microspheres 1.3 mL in NaCl (PF) 0.9% 10 mL injection (DEFINITY)Start: 06-03-2020 End: 24-12-8216dzawwbyhdw lipid microspheres 1.3 mL in NaCl (PF) 0.9% 10 mL injection (DEFINITY)predniSONE 50 mg oral tablet (3 sources)Start: 01-07-2025 End: 48-79-8970yujy 1 tablet by mouth once dailyPrednisone 50 mg tablet Discontinued 50 MG PO Daily 6 0 January 06, 2025 11:00pm February 08, 2025 9:10amStart: 08-07-2024 End: 56-03-7022vwhl 1 tablet by mouth once dailypredniSONE (Deltasone) 50 MG tablet Indications: Plantar fasciitis of right foot Take 1 tablet (50 mg) by mouth Daily for 6 days 6 tablet 08/07/2024 08/13/2024 ActiveSemaglutide,0.25 or 0.5MG/DOS, (Ozempic, 0.25 or 0.5 MG/DOSE,) 2 MG/3ML solution pen-injector (3 sources)Start: 06-25-2024 End: 65-30-4179Uuykwjgxyzy,0.25 or 0.5MG/DOS, (Ozempic, 0.25 or 0.5 MG/DOSE,) 2 MG/3ML solution pen-injector Indications: Type 2 diabetes mellitus with hyperglycemia, without long-term current use of insulin ([facility]) INJECT 0.5 MG UNDER THE SKIN 1 (ONE) TIME PER WEEK 3 mL 5 06/25/2024 08/07/2024 Discontinued Start: 73-04-0302Qynwhsewezm,0.25 or 0.5MG/DOS, (Ozempic, 0.25 or 0.5 MG/DOSE,) 2 MG/3ML solution pen-injector Indications: Type 2 diabetes mellitus with hyperglycemia, without long-term current use of insulin (CMS/HCC) INJECT 0.5 MG UNDER THE SKIN 1 (ONE) TIME PER WEEK 3 mL 5 06/25/2024 Mpcers624 ml sodium chloride 9 mg/ml prefilled syringe (20 sources)Start: 06-03-2020 End: 38-56-5645fxbjry chloride 0.9 % (flush) 10 mL (BD POSIFLUSH) Problems Active Problems Problem ClassificationProblemDateDocumented DateEpisodic/ChronicAnxiety disorders (19 sources)Generalized anxiety disorder; 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: [Generalized anxiety disorder]Onset: 548179-79-0663JnjitjcLrofhiw dysrhythmias (20 sources)Atrial fibrillation; 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: [Unspecified atrial fibrillation] Onset: 794101-03-5684SsnmlzvGiqzdvyo mellitus with complications (20 sources)Hyperglycemia due to type 2 diabetes mellitus; 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: [Type 2 diabetes mellitus with hyperglycemia]Onset: 234583-93-9140ZsotgjmDogxqjts mellitus without complication (6 sources)Prediabetes; 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: [Prediabetes]Onset: 02-60-0189Hbrqdttd Esophageal disorders (20 sources)Gastroesophageal reflux disease without esophagitis; 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: [Gastro-esophageal reflux disease without esophagitis]Onset: 08-10-2023 02-52-8487HidekgnPdrccnpsq hypertension (20 sources)Essential (primary) hypertension; 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: [Essential hypertension]Onset: 516750-49-5536JmsauatVuqzo disorders and dislocations; trauma-related (2 sources)Derangement of right knee; 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: [Unspecified internal derangement of right knee]87-66-8106LrtwhoeUyplsfp (4 sources)Onychomycosis due to dermatophyte ; 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: [Tinea unguium] 88-06-2057YivlwhwhMucqoesxsjp deficiencies (20 sources)Vitamin D deficiency, unspecified; 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: [Vitamin D deficiency]Onset: 271842-48-8238VwpmhthWwzld aftercare (4 sources)Long-term current use of anticoagulant; 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: [senior living (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]Onset: 10-58-0408YgnvufthFgxpe aftercare (2 sources)senior living (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; 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: [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]Onset: 93-60-9707VehmytiyWmqvz aftercare (2 sources)Postoperative visit; 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: [Encounter for other specified surgical aftercare]06-24-8831OwkeayvaKylmb and ill-defined heart disease (20 sources)Thrombus of left atrium; 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: [Intracardiac thrombosis, not elsewhere classified]Onset: 223708-85-7188QwchrhaZjyev and unspecified benign neoplasm (2 sources)Benign neoplasm of colon; 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: [Benign neoplasm of colon, unspecified]Onset: 73-03-8947JbtwxzzbFruef and unspecified benign neoplasm (2 sources)Adenomatous polyp of zckoc58-26-0474TtxvrzmoFamff and unspecified benign neoplasm (2 sources)Benign neoplasm of ascending xeyql06-16-8647PjyshnnfJdbsd and unspecified benign neoplasm (2 sources)Benign neoplasm of descending -22-3494CusourflIvfxf connective tissue disease (19 sources)Cramp in lower limb; 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: [Cramp and spasm]Onset: 636009-28-2275RoezubdhGigpm connective tissue disease (2 sources)Pain in hallux; 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: [Pain in left toe(s)]67-06-5366Fipdvalf Other connective tissue disease (9 sources)Plantar fasciitis of right foot; 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: [Plantar fascial fibromatosis]Onset: 516509-96-1892BmdflkbaRuxvd nervous system disorders (2 sources)Difficulty walking; 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: [Difficulty in walking, not elsewhere classified]46-07-4007GuznyjsSkyct non-traumatic joint disorders (2 sources)Knee painEpisodicOther non-traumatic joint disorders (4 sources)Pain in right knee; 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: [Right knee pain]55-21-3656Yiqbicja Other nutritional; endocrine; and metabolic disorders (14 sources)Body mass index 30+ - obesity; 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: [Obesity, unspecified] Onset: 231757-35-7907QqycwyaKtoai nutritional; endocrine; and metabolic disorders (7 sources)Obesity caused by energy imbalance; 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: [Class 1 obesity due to excess calories with serious comorbidity and body mass index (BMI) of 34.0 to 34.9 in adult]Onset: 255079-30-8641AfvbnfeQuiib skin disorders (2 sources)Dystrophia unguium; 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: [Nail dystrophy]35-01-8207Txilbcft Residual codes; unclassified (20 sources)Sleep apnea; 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: [Sleep apnea, unspecified]Onset: 858575-15-6339VqyxkmnVaxtikjg codes; unclassified (20 sources)Obstructive sleep apnea syndrome; 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: [Obstructive sleep apnea (adult) (pediatric)]Onset: 08-43-8497XtssfrpAvoikkqy codes; unclassified (1 source)Sleep apnea, unspecified; 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: [SLEEP APNEA UNSPECIFIED] Onset: 45-08-0948OoxqljbPapfggiu codes; unclassified (1 source)Obstructive sleep apnea (adult) (pediatric); 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: [Obstructive sleep apnea syndrome]Onset: 54-43-9398XwfpblyQffrxvvonah; intervertebral disc disorders; other back problems (1 source)Other spondylosis with radiculopathy, lumbar region; 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: [OTH SPONDYLS RADICULOPATHY LUMBRGN]Onset: 61-87-9905LjibfszCrqmgia and strains (2 sources)Injury of articular cartilage of right knee joint; 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: [Sprain of other specified parts of right knee, initial encounter]02-08-2025 EpisodicUnclassified (1 source)LOW BACK PAIN, UNSPECIFIED; 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: [LOW BACK PAIN, UNSPECIFIED] Onset: 16-26-8103Zxejwrejdjxj (1 source)Autogenerated ProblemOnset: 899352-56-5016Yssjwmwiqliz (3 sources)M25.561 - Pain in right kneeUnclassified (1 source)Other persistent atrial fibrillation; 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: [Persistent atrial fibrillation (HCC)]Onset: 08-17-2018 Past or Other Problems Problem ClassificationProblemDateDocumented DateEpisodic/ChronicOther aftercare (17 sources)Long-term current use of drug therapy; 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: [Other mcc (current) drug therapy]Onset: 884715-87-5335EbqgmhbiRrydj and unspecified benign neoplasm (4 sources)Personal history of colonic polyps; 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: [PERSONAL HISTORY OF COLONIC POLYPS]Onset: 87-57-8543CcjedyevZqfly and unspecified benign neoplasm (1 source)Polyp of colon; 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: [POLYP OF COLON]Onset: 10-12-2021 EpisodicOther and unspecified benign neoplasm (1 source)Benign neoplasm of sigmoid colon; 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: [BENIGN NEOPLASM OF SIGMOID COLON]Onset: 28-98-8229RiaggvcgIgqlb screening for suspected conditions (not mental disorders or infectious disease) (20 sources)Stool DNA-based colorectal cancer screening positive; 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: [Impaired left ventricular function]Onset: 393044-13-0987FdynktpbYguzzeowq and history of mental health and substance abuse codes (1 source)Personal history of nicotine dependence; 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: [PERSONAL HISTORY OF NICOTINE DEPEND]Onset: 72-11-4480VqebfhaqUrsuqmopiad; intervertebral disc disorders; other back problems (4 sources)Radiculopathy, site unspecified; 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: [RADICULOPATHY SITE UNSPECIFIED]Onset: 60-72-8745Jaridcrv Results Test NameValueInterpretationReference RangeFacilityANES POSTPROC EVALon 03-49-2494WBNX POSTPROC EVALHNO ID: [id number] Author: MARISA DAUGHERTY MD Service: ? Author Type: Anesthesiologist Type: Anesthesia Postprocedure Evaluation Filed: 12/05/2024 16:03 Note Text: POST ANESTHESIA EVALUATION NOTE : 1960 Procedure Summary Date: 12/05/24 Room / Location: [address] [facility] Anesthesia Start: 1038 Anesthesia Stop: 105 Procedure: CARDIOVERSION EXTERNAL ELECTIVE Diagnosis: Persistent atrial fibrillation (HCC) (Persistent atrial fibrillation (HCC) [I48.19]) Surgeons: Jessica Wintre MD Responsible Provider: Marisa Daugherty MD Anesthesia [...] December 05, 2024 TIME: 4:03 PM CSN: [id number] PRE-OPon 60-99-0666GXYG PRE-OPHNO ID: [id number] Author: MARISA DAUGHERTY MD Service: ? Author Type: Anesthesiologist Type: Anesthesia Preprocedure Evaluation Filed: 12/05/2024 10:40 Note Text: ANESTHESIOLOGY DAY OF SURGERY NOTE : 1960 Procedure Information Anesthesia Start Date/Time: 12/05/24 1038 Procedure: CARDIOVERSION EXTERNAL ELECTIVE Location: [address] [facility] Surgeons: Jessica Winter MD Estimated [...] and consent discussed: yes. Patient / Responsible Alliance Party agrees to proceed: yes Patient / [...] SIGNATURE: Marisa Daugherty MD PATIENT NAME: Abbey Martinez Chrissy DATE: December 05, 2024 TIME: 10:38 AM CSN: [id number] County HospitalCNK[facility] CNOVOffice Visit (CARDMN) CHRISSYABBEY Martinez ([id number]) 1960 M Date Time Provider Department 12/05/24 7:30 AM TSERING SAENZ CARDMN During your visit today, we recorded the following information about you: Pulse Blood pressure Weight Height 150/minute 143/89 110.2 kg 1.803 m Tsering Saenz APRN.CNP 12/05/2024 8:04 AM Signed [facility] Josi Apodaca Department of Cardiovascular Medicine SECTION OF CARDIAC PACING and ELECTROPHYSIOLOGY OUTPATIENT VISIT DATE December 05, 2024 OUTPATIENT VISIT TYPE ESTABLISHED PRIMARY CARE PHYSICIAN: Michael Spangler (Luis) [address] [place] [address] CHIEF COMPLAINT: Atrial fibrillation HISTORY OF PRESENT [...] WITH RAPID VENTRICULAR RE (more content not included)...NormalFostoria City HospitalComprehensive metabolic 2000 panelon 40-89-7990Nehpuce [Mass/Vol]4.0 g/dLNormal3.9-4.9CKettering Health [facility] Comment on above:Order Comment: Specimen Type: BLOOD SPECIMEN Ordering Facility: [facility] Address: [address] [place], [place] [address]Performed By: #### [id number] #### [facility] CLIA [id number] [address] [place] [id number] [place] AMERICAALP [Catalytic activity/Vol] 44 U/[id number] City HospitalComhenry ford [facility] on above:Order Comment: Specimen Type: BLOOD SPECIMEN Ordering Facility: [facility] Address: [address] [place], [place] [address]Performed By: #### [id number] #### [facility] CLIA [id number] [address] [place] [address] [place] [Catalytic activity/Vol] 41 U/[id number] City HospitalComment on above:Order Comment: Specimen Type: BLOOD SPECIMEN Ordering Facility: [facility] Address: [address] [place], [place] [address]Performed By: #### [id number] #### [facility] CLIA [id number] [address] [place] [address] [place] AMERICAAnion gap [Moles/Vol]12 mmol/LNormal8-15[facility] on above:Order Comment: Specimen Type: BLOOD SPECIMEN Ordering Facility: [facility] Address: [address] [place], [place] [address]Performed By: #### [id number] #### [facility] CLIA [id number] [address] [place], [place] [id number] [place] AMERICAAST [Catalytic activity/Vol] 25 U/[id number] Nelsonville Health Center on above:Order Comment: Specimen Type: BLOOD SPECIMEN Ordering Facility: [facility] Address: [address] [place], [place] [address]Performed By: #### [id number] #### [facility] CLIA [id number] [address] [place], [place] [id number] [place] AMERICABilirubin [Mass/Vol]0.6 mg/dLNormal0.2-1.3CCherrington Hospital on above:Order Comment: Specimen Type: BLOOD SPECIMEN Ordering Facility: [facility] Address: [address] [place], [place] [address]Performed By: #### 02211-9 #### [facility] CLIA [id number] [address] [place] [address] [place] OF AMERICACalcium [Mass/Vol]9.0 mg/dL Normal8.5-10.2CCherrington Hospital on above:Order Comment: Specimen Type: BLOOD SPECIMEN Ordering Facility: [facility] Address: [address] [place], [place] [address]Performed By: #### 31686-4 #### [facility] CLIA [id number] [address] [place], [place] [address] [place] OF AMERICAChloride [Moles/Vol]105 mmol/CCtpcfr32-206UokqlifddOhioHealth Nelsonville Health Center on above:Order Comment: Specimen Type: BLOOD SPECIMEN Ordering Facility: [facility] Address: [address] [place], [place] [address]Performed By: #### 63898-0 #### [facility] CLIA [id number] [address] [place], [place] [address] [place] AMERICACO2 [Moles/Vol]25 mmol/L Aqugyv50-33XeethbfwbOhioHealth Nelsonville Health Center on above:Order Comment: Specimen Type: BLOOD SPECIMEN Ordering Facility: [facility] Address: [address] [place], [place] [address]Performed By: #### 03520-3 #### [facility] IA [id number] [address] [place] [address] [place] AMERICACreatinine [Mass/Vol]1.00 mg/dLNormal0.73-1.22[facility] on above:Order Comment: Specimen Type: BLOOD SPECIMEN Ordering Facility: [facility] Address: [address] [place], [place] [address]Performed By: #### 98498-4 #### [facility] IA [id number] [address] [place] [address] [place] AMERICAeGFRcr SerPlBld CKD-EPI 2020 85 mL/min/1.73m???Normal>=60[facility] on above:Order Comment: Specimen Type: BLOOD SPECIMEN Ordering Facility: [facility] Address: [address] [place], [place] [address]Result Comment: Estimated Glomerular Filtration Rate (eGFR) is calculated using the 2020 CKD-EPI cre atinine equation. This equation utilizes serum creatinine, sex, and age as parameters. The creatinine assay has traceable calibration to isotope dilution- mass spectrometry. Refer to KDIGO guidelines for clinical interpretation. In patients with unstable renal function, e.g. those with acute kidney injury, the eGFR may not accurately reflect actual GFR.Performed By: #### 73201-9 #### [facility] CLIA [id number] [address] [place] [address] [place] AMERICAGlucose [Mass/Vol]143 mg/dL Ilxo30-16PqzcbmqnfOhioHealth Nelsonville Health Center on above:Order Comment: Specimen Type: BLOOD SPECIMEN Ordering Facility: [facility] Address: [address] [place], [place] [address]Result Comment: The [place] Diabetes Association (ADA) provides guidance for cutoff [...] Standards of Medical Care in Diabetes 2016, [place] [employer] Association. Diabetes Care. 2016.39(Suppl 1).Performed By: #### 51337-4 #### [facility] CLIA [id number] [address] [place] [address] [place] AMERICAPotassium [Moles/Vol]4.3 mmol/LNormal3.7-5.1CCherrington Hospital on above:Order Comment: Specimen Type: BLOOD SPECIMEN Ordering Facility: [facility] Address: [address] [place], [place] [address]Performed By: #### 76749-0 #### [facility] IA [id number] [address] [place] [address] [place] AMERICAProtein [Mass/Vol]6.1 g/dL Low6.3-8.0[facility] on above:Order Comment: Specimen Type: BLOOD SPECIMEN Ordering Facility: [facility] Address: [address] [place], [place] [address]Performed By: #### 11115-5 #### [facility] CLIA [id number] [address] [place] [address] [place] AMERICASodium [Moles/Vol]142 mmol/L Trjaxs136-528WstwdphutOhioHealth Nelsonville Health Center on above:Order Comment: Specimen Type: BLOOD SPECIMEN Ordering Facility: [facility] Address: [address] [place], [place] [address]Performed By: #### 79454-0 #### [facility] CLIA [id number] [address] [place], [place] [address] [place] AMERICAUrea nitrogen [Mass/Vol]23 mg/dLNormal9-24[facility] on above:Order Comment: Specimen Type: BLOOD SPECIMEN Ordering Facility: [facility] Address: [address] [place], [place] [address]Performed By: #### 04837-9 #### [facility] CLIA [id number] [address] [place] [address] [place] [address] [facility] DAUGHTERSECG COMPLETEon 41-34-2901EZD COMPLETEVentricular Rate : 75 BPM Atrial Rate : 75 BPM P-R Interval : 182 ms QRS Duration : 96 ms Q-T Interval : 378 ms QTC Calculation(Bazett) : 422 ms Calculated P [place] : 68 degrees Calculated R [place] : 41 degrees Calculated T [place] : 58 degrees NORMAL SINUS RHYTHM NORMAL ECG Confirmed by TITA WALDEN MD ([id number]) on 12/31/2024 9:09:13 PM NAME : CHRISSYABBEY PID : [id number] : 1960 Gender : Male Race : ORD : [id number] Procedure Date : Dec 05 2024 11:02:54 Edit Date : Dec 31 2024 21:09:19 Diagnosis: NORMAL SINUS RHYTHM NORMAL ECG Confirmed by TITA WALDEN MD ([id number]) on 12/31/2024 9:09:13 PM Test Reason : Post-OP Location : 23 : [facility] SHAYAN-022 Overread By : TITA WALDEN MD Edited By : TITA WALDEN MD Referred By : , Acquired by : [id number],NormalSelect Medical [facility] COMPLETEVentricular Rate : 153 BPM QRS Duration : 96 ms Q-T Interval : 290 ms QTC Calculation(Bazett) : 463 ms Calculated R [place] : 35 degrees Calculated T [place] : 57 degrees ATRIAL FLUTTER WITH VARIABLE BLOCK NONSPECIFIC ST ABNORMALITY ABNORMAL ECG Confirmed by MD KARLA, PhD, KATHERINE ([id number]) on 02/02/2025 3:24:59 PM NAME : ABBEY LOWE PID : [id number] : 1960 Gender : Male Race : ORD : [id number] Procedure Date : Dec 05 2024 07:11:58 Edit Date : Feb 02 2025 15:25:02 Diagnosis: ATRIAL FLUTTER WITH VARIABLE BLOCK NONSPECIFIC ST ABNORMALITY ABNORMAL ECG Confirmed by MD KARLA, PhD, KATHERINE ([id number]) on 02/02/2025 3:24:59 PM Test Reason : Location : 314 : J14 J1-4 Overread By : MD KARLA, PhD,KATHERINE Edited By : MD KARLA, PhD,KATHERINE Referred By : JESSICA WINTER Acquired by : Marisol AMBRIZMount Carmel Health SystemGlomerular filtration rate [Volume Rate/Area] in Serum, Plasma or Blood by CreatinineOrdered By: Jessica Wniter on 07-40-1665Abxlsnazuz filtration rate [Volume Rate/Area] in Serum, Plasma or Blood by Uxhkyotmph91 mL/min/1.73m???>=60St. Elizabeth HospitalComment on above:Estimated Glomerular Filtration Rate (eGFR) is calculated using the 2020 CKD-EPI creatinine equation. This equation utilizes serum creatinine, sex, and age as parameters. The creatinine assay has traceable calibration to isotope dilution-mass spectrometry. Refer to KDIGO guidelines for clinical interpretation. In patients with unstable renal function, e.g. those with acute kidney injury, the eGFRmay not accurately reflect actual GFR.Glucose [Mass/volume] in Serum or PlasmaOrdered By: Jessica Winter on 16-17-0158Hmzechl [Mass/Vol]143 mg/gQUqii24-26MjfqgogfaSt. Elizabeth HospitalComment on above: The [place] Diabetes Association (ADA) provides guidance for cutoff values for fasting glucose andrandom glucose. The ADA defines fasting as no caloric intake for at least 8 hours. Fasting plasma glucose results between 100 to 125 mg/dL indicate increased risk for diabetes (prediabetes).Fasting plasma glucose results greater than or equal to 126 mg/dL meet the criteria for diagnosis of diabetes. In the absence of unequivocal hyperglycemia, results should be confirmed by repeat testing. In a patient with classic symptoms of hyperglycemia or hyperglycemic crisis, random plasma glucose resultsgreater than or equal to 200 mg/dL meet the criteria for diagnosis of diabetes.Reference: Standardsof Medical Care in Diabetes 2016, [place] Diabetes Association. Diabetes Care. 2016.39(Suppl 1).HISTORY PHYSICALon 95-95-4784LRWTAWZ PHYSICALHNO ID: [id number] Author: TSERING SAENZ APRN.SENIOR GRAPHIC DESIGNER Service: ? Author Type: Nurse Practitioner Type: H&P Filed: 12/05/2024 08:04 Note Text: [facility] Josi Apodaca Department of Cardiovascular Medicine SECTION OF CARDIAC PACING and ELECTROPHYSIOLOGY OUTPATIENT VISIT DATE December 05, 2024 OUTPATIENT VISIT TYPE ESTABLISHED PRIMARY CARE PHYSICIAN: Michael Spangler ([facility]) [address] [place] [address] CHIEF COMPLAINT: Atrial fibrillation HISTORY OF PRESENT [...] The patient has a (more content not included)...NormalFostoria City Hospital Laboratory - Chemistry and Chemistry - challengeOrdered By: Jessica Winter on 66-10-9350Rxzqauk [Mass/Vol]4.0 g/dL3.9-4.9St. [facility] HospitalALP [Catalytic activity/Vol]44 U/B93-342EpeqcvpbqSt. Elizabeth HospitalALT [Catalytic activity/Vol]41 U/E16-90KianjgpihSt. Elizabeth HospitalAST [Catalytic activity/Vol]25 U/M05-88FnnqwkuvbSt. Elizabeth HospitalBilirubin [Mass/Vol]0.6 mg/dL0.2-1.3FCleveland Clinic FoundationCalcium [Mass/Vol]9.0 mg/dL8.5-10.2FCleveland Clinic FoundationChloride [Moles/Vol]105 mmol/L 98-107St. Elizabeth HospitalCO2 [Moles/Vol]25 mmol/K39-77WrlyfvorfSt. Elizabeth HospitalCreatinine [Mass/Vol]1.00 mg/dL0.73-1.22St. Elizabeth HospitalPotassium [Moles/Vol]4.3 mmol/L3.7-5.1FBellevue Hospitalodium [Moles/Vol]142 mmol/P370-191PdcnaebywSt. Elizabeth HospitalUrea nitrogen [Mass/Vol]23 mg/dL9-24[facility] Protein [Mass/volume] in Serum or PlasmaOrdered By: Jessica Winter on 12-05-2024 Protein [Mass/Vol]6.1 g/dLLow6.3-8.0[facility] Medical Centererum or plasma anion gap determinationOrdered By: Jessica Winter on 23-97-9392Acudj gap [Moles/Vol]12 mmol/L8-15St. Elizabeth HospitalCNPNon 86-60-0491PMRM Telephone (CARDMN) CHRISSYABBEY ([id number]) 1960 M Date Time Provider Department 11/29/24 [...] [Z00.6]03/18/2021 Encounter Status:Closed by HAROON BARBER on 11/29/24[facility] 12-91-4677UUMHSiowgmrox (EPSMN) ABBEY LOWE ([id number]) 1960 M Date Time Provider Department 11/28/24 [...] (HCC) [I48.19] Order(s):ECG COMPLETE [ECG01] Order #: [id number] FUTURE Prescriptions as of 11/28/2024 - apixaban [...] Encounter Status:Closed by MONICA DANIEL RN on 11/28/24[facility] 12-LEADon 48-13-1986[place] [address] Electrocardiograph Report Signed Patient: ABBEY LOWE MR#: [id number] : 1960 Acct:[id number] Age/Sex: 64 / M ADM Date: 11/26/24 Loc: CARD Attending Dr: Non-Staff Physician Thomas Ordering Physician: Paris BlasStaff Thomas Date of Service: 11/26/24 Procedure(s): ECG 12 lead Accession Number(s): [id number] cc: [facility] Test Date: 2024-11-26 Pat Name: ABBEY LOWE Department: Room: - Gender: Male Optical Laboratory Manager: : 1960 Requested By: [id number] Order Number: [id number] Chhaya MD: REBEKAH ADDISON Measurements Intervals [place] Rate: 127 P: TX: QRS: 39 QRSD: 109 T: 67 QT: [...] 11/28/24 1549 11/28/24 1549 DD/ 1050 TD/TT: Rapid Transit Operator:LIANETadiologsathish, Radiologist, - 11/28/2024 [place] [address] Electrocardiograph Report Signed Patient: ABBEY LOWE MR#: [id number] : 1960 Acct:[id number] Age/Sex: 64 / M ADM Date: 11/26/24 Loc: CARD Attending Dr: ParisStaff Physician Guzman Ordering Physician: Donald Blas M.D. Date of Service: 11/26/24 Procedure(s): ECG 12 lead Accession Number(s): [id number] cc: [facility] Test Date: 2024-11-26 Pat Name: ABBEY LOWE Department: Room: - Gender: Male Optical Laboratory Manager: : 1960 Requested By: [id number] Order Number: [id number] Reading MD: REBEKAH ADDISON Measurements Intervals [place] Rate: 127 P: TX: QRS: 39 QRSD: 109 T: 67 QT: [...] 11/28/24 1549 11/28/24 1549 DD/ 1050 TD/TT: Rapid Transit Operator: SAGE Morley 12-LEADOrdered By: Radiologist Radiology on 97-02-8037MF[employer] Work Phone: cNPNon [phone] (CARDMN) ABBEY LOWE ([id number]) 1960 M Date Time Provider Department 11/26/24 JESSICA WINTER CARDMN During your visit today, we recorded the following information about you: Yara Sutton 11/26/2024 11:16 AM Signed Patients is calling. is back in [place] and would like to get an EKG done. Apt in Mar. Order faxed to [facility] at [phone] Yara Sutton 11/26/2024 3:09 PM Signed EKG [...] would be scheduled for clinic visit with DCC same day. He will need to bring a airport driver and be NPO for at least 8 hours prior. Patient verbalized understanding, DCC request sent. Haroon Barber RN Allergies As [...] [Z00.6]03/18/2021 Encounter Status:Closed by YARA SUTTON on 11/26/24[facility] 12-LEADon 44-70-7548Qjpomdwec Study observation (narrative)NOMS HealthcareALL CBC WITH AUTO DIFFon 86-26-1940UFYGAGAVS ABSOLUTE AUTO0.1NOMS HealthcareBasophils/100 WBC (Bld)0.8 %0.2 - 2.0 %NOMS HealthcareEosinophils/100 WBC (Bld)2.7 %0.9 - 7.0 %NOMS HealthcareErythrocyte distribution width (RBC) [Ratio]13.4 %11.0 - 15.0 %NOMS HealthcareHematocrit (Bld) [Volume fraction]45.1 %42.0 - 54.0 %NOM HealthcareHemoglobin (Bld) [Mass/Vol]14.8 g/dL14.0 - 18.0 g/dLNOND HealthcareIMMATURE GRANULOCYTES ABS AUTO0.02NOMS HealthcareImmature granulocytes/100 WBC (Bld)0.3 %0.0 - 0.5 %NOM HealthcareInterpretation and review of laboratory resultsAbnormalNOND HealthcareLYMPHOCYTES ABSOLUTE AUTO1.8 NOM HealthcareLymphocytes/100 WBC (Bld)28 %20.5 - 60.0 %[facility] CenterH (RBC) [Entitic mass]27.7 pg25.9 - 34.0 pgNOLiberty HospitalHC (RBC) [Mass/Vol] 32.8 g/dL29.9 - 35.2 g/dLMoberly Regional Medical CenterV (RBC) [Entitic vol]84.3 fL80.0 - 94.0 fLALTA VIEW HOSPITAL HealthcareMONOCYTES ABSOLUTE AUTO0.6NOND HealthcareMonocytes/100 WBC (Bld)8.8 %1.7 - 12.0 %NOM HealthcareNEUTROPHILS ABSOLUTE AUTO3.9[facility] Neutrophils/100 WBC (Bld)59.4 %43.0 - 75.0 %NOM HealthcarePlatelet mean volume (Bld) [Entitic vol]9.2 fLLow9.5 - 13.5 fLLafayette Regional Health CenterTBH EO #0.2NOMS HealthcareTBH REQ294KXEG HealthcareTB RBC5.35NOMS HealthcareTBH WBC6.6NOMS HealthcareCLINISYNCNOMS HealthcareFollow-Upon 28-49-4784Zqjjje-[id number] Abbey Lowe 1960 M Date Provider Department Center 05/30/2024 202-BLAYNE GUERIN [facility] SLEEP [facility] Family History Problem Relation Age of Onset Heart disease Mother Diabetes Father Hypothyroidism Father Heart disease Father COPD Brother Diabetes Brother Family Status - Relation Status Age at Mother Father Brother Level of Service:10678 [place] OFFICE/OUTPATIENT ESTABLISHED LOW MDM 20 MIN Reason for Visit and Comments: Sleep Apnea [348] - 1 year follow up. Machine is working well and sleeping great.Avita Health SystemCNPNon 63-07-6283HMLSOdkdtfyhu (CARDMN) ABBEY LOWE ([id number]) 1960 Date Time Provider Department 05/21/24 JESSICA WINTER CARDMN During your visit today, we recorded the following information about you: Yara Sutton 05/21/2024 2:36 PM Signed May 21, 2024 Patient Contact Number: [phone] (home) [phone] (cell) Patient last seen within the last year No Reason For Call: Other Issue: Patients is calling. They will be traveling to [place] and was wondering if making such a [...] Fully Assessed Reason for Visit: Patient Question [5366] Prescriptions as of 05/21/2024 - metoprolol succinate [...] [Z00.6]03/18/2021 Encounter Status:Closed by HAROON BARBER on 05/21/24[facility] HEMOGLOBIN A1Con 49-21-1716Vrhlmhx [Mass/Vol]166 mg/dLNOND WovdwmdmciKjN9y (Bld) [Mass fraction]7.4 %High4.5 - 6.2 %NOMS HealthcareComment on above:ADA RECOMMENDED LIMIT 4.0 - 6.0 ADA THERAPEUTIC TARGET < 7.0 ACTION SUGGESTED > 7.0 Interpretation and review of laboratory resultsAbnormalNOND HealthcareCLINISYNC NOMS HealthcareECG 12 leadon 91-82-3277Gcreqykkkuj Rate : 70 BPM Atrial Rate : 70 BPM P-R Interval : 152 ms QRS Duration : 100 ms Q-T Interval : 386 ms QTC Calculation(Bazett) : 416 ms Calculated P [place] : -92 degrees Calculated R [place] : 18 degrees Calculated T [place] : 30 degrees UNUSUAL P AXIS, POSSIBLE ECTOPIC ATRIAL RHYTHM ABNORMAL ECG Confirmed by fellow SANTOS BELLA MD ([id number]) on 03/21/2023 10:43:02 AM Confirmed by MD KARLA, PhD, KATHERINE ([id number]) on 03/21/2023 1:43:16 PM NAME : ABBEY LOWE PID : [id number] : 1960 Gender : Male Race : ORD : [id number] Procedure Date : Mar 08 2023 09:28:38 Edit Date : Mar 21 2023 13:43:17 Diagnosis: UNUSUAL P AXIS, POSSIBLE ECTOPIC ATRIAL RHYTHM ABNORMAL ECG Confirmed by fellow SANTOS BELLA MD ([id number]) on 03/21/2023 10:43:02 AM Confirmed by MD KARLA, PhD, KATHERINE ([id number]) on 03/21/2023 1:43:16 PM Test Reason : Location : 314 : 14 1-4 Overread By : MD KARLA, PhD,KATHERINE Edited By : MD KARLA, PhD,KATHERINE Referred By : , Acquired by : MAXI LOCKFRadiology, Radiologist, - 03/22/2023 Ventricular Rate : 70 BPM Atrial Rate : 70 BPM P-R Interval : 152 ms QRS Duration : 100 ms Q-T Interval : 386 ms QTC Calculation(Bazett) : 416 ms Calculated P [place] : -92 degrees Calculated R [place] : 18 degrees Calculated T [place] : 30 degrees UNUSUAL P AXIS, POSSIBLE ECTOPIC ATRIAL RHYTHM ABNORMAL ECG Confirmed by fellow SANTOS BELLA MD ([id number]) on 03/21/2023 10:43:02 AM Confirmed by MD KARLA, PhD, KATHERINE ([id number]) on 03/21/2023 1:43:16 PM NAME : ABBEY LOWE PID : [id number] : 1960 Gender : Male Race : ORD : [id number] Procedure Date : Mar 08 2023 09:28:38 Edit Date : Mar 21 2023 13:43:17 Diagnosis: UNUSUAL P AXIS, POSSIBLE ECTOPIC ATRIAL RHYTHM ABNORMAL ECG Confirmed by fellow SANTOS BELLA MD ([id number]) on 03/21/2023 10:43:02 AM Confirmed by MD KARLA, PhD, KATHERINE ([id number]) on 03/21/2023 1:43:16 PM Test Reason : Location : 314 : 14 j-4 Overread By : MD KARLA, PhD,KATHERINE Edited By : MD KARLA, PhD,KATHERINE Referred By : , Acquired by : MAXI LOCK [facility] 12 leadOrdered By: Radiologist Radiology on 12-98-4987AASA [employer] Work Phone: Reminderson [phone] From: Taylor Bonner LPN To: [facility] - Clinical; Sent: 11/17/2022 09:49:20 EDT Show up: 09/21/2027 07:00:00 EDT Subject: colonoscopy recall Due Date/Time: 10/21/2027 07:00:00 EDT Reminder/Recall Patient due for surveillance colonoscopy 10/21/2027.[facility] CampusPathology Noteon 14-33-2469Rstmgbaya Note [id number]#1.00CD:127[facility] CampusOutside Colonoscopyon 16-38-1006Cvqoufz Colonoscopy [id number]#1.00CD:[address] [place], [place] [address]Pre-Certification Formon 86-69-8793Lns-Certification Form [id number]#1.00CD:[address] [place], [place] [address]Consent for Procedure/Surgeryon 58-42-9571Ztfkvbw for Procedure/Surgery [id number]#1.00CD:[address] [place], [place] [address]Ambulatory Visit Summaryon 99-46-6457Gmvhtvfyxv Visit Summary ABBEY LOWE :1960 Visit Date:09/22/2022 [...] tablet) TAKE 1 TABLET BY MOUTH EVERY DAYContact prescribing physician if questions or concerns Unchanged [...] adenoma of colon Tubulovillous adenoma of colon [facility] CampusGLYCOHEMOGLOBIN A1Con 02-16-2022 ADA RECOMMENDATIONSEE BELOWSumma Health Akron CampusComment on above:Result Comment: ADA RECOMMENDED LIMIT 4.0 - 6.0 ADA THERAPEUTIC TARGET < 7.0 ACTION SUGGESTED > 7.0Performed By: #### A1C #### [facility] [address] [address] [address] Neelima BansalGlucose [Mass/Vol]186 mg/dLNoFairfield Medical CenterComment on above:Performed By: #### A1C #### [facility] [address] [address] [address] Neelima BansalHbA1c (Bld) [Mass fraction]8.1 %Critically high4.5-6.2The Samaritan HospitalComment on above:Performed By: #### A1C #### [facility] [address] [address] [address] Neelima BansalXR LSPINE 2_3 VIEWSon 35-22-4617AK LSPINE 2_3 VIEWSEXAMINATION: XR LSPINE 2_3 VIEWS HISTORY: Nerve root [...] Electronically authenticated by: EMBER LOPEZ Date: 2021-10-01 21:09NoGen[facility] AUTO DIFFon 05-57-6058HQTN #0.0 103/ulNormal0.0-0.1The [facility]aritan HospitalComment on above:Performed By: #### A1C #### [facility] [address] [place] [address] Dr. Neelima BansalBasophils/100 WBC (Bld)0.6 %Normal0.2-2.0[facility] Comment on above:Performed By: #### A1C #### [facility] [address] [address] [address] Neelima Delatorre #0.2 103/ulNormal0.0-0.7The Samaritan HospitalComment on above: Performed By: #### A1C #### [facility] [address] [place] [address] Dr. Neelima Wadeosinophils/100 WBC (Bld)2.3 %Normal0.9-7.0[facility] Comment on above:Performed By: #### A1C #### [facility] [address] [address] [address] Neelima Waderythrocyte distribution width (RBC) [Ratio]13.6 %Jycwtk62.0-15.0 The Samaritan HospitalComment on above:Performed By: #### A1C #### [facility] [address] [place] [address] Dr. Neelima BansalHematocrit (Bld) [Volume fraction]44.6 %Nqfgni54.0-54.0The Hi HospitalComment on above:Performed By: #### A1C #### [facility] [address] [address] [address] Neelima BansalHemoglobin (Bld) [Mass/Vol]14.6 g/yTQzchhq13.0-18.0The [facility]itan HospitalComment on above:Performed By: #### A1C #### [facility] [address] [address] [address] Neelima Russo #0.01 10e3/ulNormal0.00-0.03The Samaritan HospitalComment on above:Performed By: #### A1C #### [facility] [address] [place] [address] Dr. Neelima Russo %0.2 %Normal0.0-0.5The Samaritan HospitalComment on above: Performed By: #### A1C #### [facility] [address] [place] [address] Dr. Neelima Hargrove #1.7 103/ulNormal1.2-3.8The Samaritan HospitalComment on above:Performed By: #### A1C #### [facility] [address] [place] [address] Dr. Neelima Robleshocytes/100 WBC (Bld)26.9 %Livksj20.5-60.0The Samaritan HospitalComment on above:Performed By: #### A1C #### [facility] [address] [place] [address] Dr. Neelima VarelaUAL DIFF REQNONormalThe Samaritan HospitalComment on above: Performed By: #### A1C #### [facility] [address] [place] [address] Dr. Neelima Alonso (RBC) [Entitic mass]28.2 hpTugtou09.9-34.0The [facility]aritan HospitalComment on above:Performed By: #### A1C #### [facility] [address] [place] [address] Dr. Neelima Alonso (RBC) [Mass/Vol]32.7 g/zEVlmsyd46.9-35.2The [facility]itan HospitalComment on above:Performed By: #### A1C #### [facility] [address] [address] [address] Neelima AlonsoV (RBC) [Entitic vol]86.1 jHLhrpsr55.0-94.0The [facility]itan HospitalComment on above:Performed By: #### A1C #### [facility] [address] [address] [address] Neelima Dickinson #0.6 103/ulNormal0.3-0.8The [facility]itan HospitalComment on above:Performed By: #### A1C #### [facility] [address] [address] [address] Neelima Juneocytes/100 WBC (Bld)9.8 %Normal1.7-12.0[facility] on above:Performed By: #### A1C #### [facility] [address] [place] [address] Dr. Neelima Lopez #3.9 103/ulNormal1.4-6.5The [facility]itan HospitalComment on above:Performed By: #### A1C #### [facility] [address] [place] [address] Dr. Neelima Vazquezutrophils/100 WBC (Bld)60.2 %Ggvtzy64.0-75.0The [facility]itan HospitalComment on above:Performed By: #### A1C #### [facility] [address] [place] [address] Dr. Neelima Coollet mean volume (Bld) [Entitic vol]9.4 fLCritically low 9.5-13.5The [facility]itan HospitalComment on above:Performed By: #### A1C #### [facility] [address] [place] [address] Dr. Neelima BansalPLT198 103/rnJisspx336-811Glo [facility]aritan HospitalComment on above: Performed By: #### A1C #### [facility] [address] [place] [address] Dr. Neelima BansalRBC5.18 106/ulNormal4.70-6.10The [facility]red Hospital Daytonment on above:Performed By: #### A1C #### [facility] [address] [address] [address] Neelima BansalWBC6.4 103/ulNormal4.0-11.0[facility] on above: Performed By: #### A1C #### [facility] [address] [address] [address] Neelima BansalGLYCOHEMOGLOBIN A1Con 41-71-3638QVS RECOMMENDATIONSEE BELOWNoHighland District HospitalComhenry [facility]d [facility] on above:Result Comment: ADA RECOMMENDED LIMIT 4.0 - 6.0 ADA THERAPEUTIC TARGET < 7.0 ACTION SUGGESTED > 7.0Performed By: #### A1C #### [facility] [address] [address] [address] Neelima BansalGlucose [Mass/Vol]146 mg/dLNoFairfield Medical CenterComment on above:Performed By: #### A1C #### [facility] [address] [address] [address] Neelima BansalHbA1c (Bld) [Mass fraction]6.7 %Critically high4.5-6.2[facility] OhioComment on above:Performed By: #### A1C #### [facility] [address] [address] [address] Neelima BansalLIPID PROFILEon 52-70-5631ZJVG-HDL RATIO NORMSEE [facility] SystemComhenry [facility] on above:Result Comment: 3.3 - 4.4 LOW RISK 4.4 - 7.1 AVERAGE RISK 7.1 - 11.0 MODERATE RISK >11.0 HIGH RISKPerformed By: #### LIVER, LIPID, BMP, TSH #### [facility] [address] [address] [address] Neelima BansalCholesterol [Mass/Vol]161 mg/dLNormal<=200[facility] [place] Comment on above:Performed By: #### LIVER, LIPID, BMP, TSH #### [facility] [address] [address] [address] Neelima BansalCholesterol in HDL [Mass/Vol]29 mg/dLCritically nwl74-34WaoKing'S Daughters Medical Center OhioComment on above:Performed By: #### LIVER, LIPID, BMP, TSH #### [facility] [address] [address] [address] Neelima Mcallisteresterol in LDL [Mass/Vol]98.8 mg/dLSumma Health Akron CampusComhenry [facility] on above:Performed By: #### LIVER, LIPID, BMP, TSH #### [facility] [address] [place] [address] Dr. Neelima Mckeon.total/Cholesterol in HDL [Mass ratio]5.6 {ratio} NormalThe Samaritan HospitalComment on above:Performed By: #### LIVER, LIPID, BMP, TSH #### [facility] [address] [place] [address] Dr. Neelima Peguero NORMAL> or = 60 mg/dl - LOW CARDIOVASCULAR RISK <40 mg/dl - HIGH CARDIOVASCULAR RISKNoFairfield Medical CenterComment on above:Performed By: #### LIVER, LIPID, BMP, TSH #### [facility] [address] [place] [address] Dr. Neelima Kinsey CALC NORMALSEE BELOWSumma Health Akron CampusComment on above:Result Comment: <100 mg/dl OPTIMAL 100 - 129 mg/dl NEAR OR ABOVE OPTIMAL 130 - 159 mg/dl BORDERLINE HIGH 160 - 189 mg/dl HIGH >190 mg/dl VERY HIGH Performed By: #### LIVER, LIPID, BMP, TSH #### [facility] [address] [place] [address] Dr. Neelima BansalTriglyceride [Mass/Vol]166 mg/dLCritically high<=150[facility] OhioComhenry [facility] on above:Performed By: #### LIVER, LIPID, BMP, TSH #### [facility] [address] [place] [address] Dr. Neelima CrossLDL CALC33.2 mg/dLSumma Health Akron CampusComment on above: Performed By: #### LIVER, LIPID, BMP, TSH #### [facility] [address] [place] [address] Dr. Neelima Corrigan PROFILEon 01-86-1014Llbiupa [Mass/Vol]3.7 g/dLNormal3.4-5.0 The [facility]itan HospitalComment on above:Performed By: #### LIVER, LIPID, BMP, TSH #### [facility] [address] [place] [address] Dr. Neelima BansalAlbumin/Globulin [Mass ratio]1.1 {ratio}NormalThe Samaritan HospitalComment on above:Performed By: #### LIVER, LIPID, BMP, TSH #### [facility] [address] [place] [address] Dr. Neelima Aparicio [Catalytic activity/Vol]42 U/LCritically yau82-813Jpp [facility] HospitalComment on above:Performed By: #### LIVER, LIPID, BMP, TSH #### [facility] [address] [place] [address] Dr. Neelima Stubbs [Catalytic activity/Vol]58 U/AXnqujv13-67Clx [facility] HospitalComment on above:Performed By: #### LIVER, LIPID, BMP, TSH #### [facility] [address] [address] [address] Neelima BansalAST [Catalytic activity/Vol]24 U/FJdfkjj27-82Xal [facility] Daytonment on above:Performed By: #### LIVER, LIPID, BMP, TSH #### [facility] [address] [address] [address] Neelima Metzger, CONJUGATED0.1 mg/dLNormal0.0-0.2[facility] Comment on above:Performed By: #### LIVER, LIPID, BMP, TSH #### [facility] [address] [place] [address] Dr. Neelima Cherryirubin [Mass/Vol]0.4 mg/dLNormal0.2-1.0[facility] Comment on above:Performed By: #### LIVER, LIPID, BMP, TSH #### [facility] [address] [place] [address] Dr. Neelima BansalGlobulin (S) [Mass/Vol]3.4 g/dLNormalThe [facility]itan HospitalComment on above:Performed By: #### LIVER, LIPID, BMP, TSH #### [facility] [address] [address] [address] Neelima BansalProtein [Mass/Vol]7.1 g/dLNormal6.4-8.2[facility] [place] Comment on above:Performed By: #### LIVER, LIPID, BMP, TSH #### [facility] [address] [address] [address] Neelima BansalPROF CHEM 8 (BAS METB)on 30-77-2355Qfucy gap [Moles/Vol]10.8 mmol/LNormalThe [facility]itan HospitalComment on above:Performed By: #### LIVER, LIPID, BMP, TSH #### [facility] [address] [place] [address] Dr. Neelima BansalCalcium [Mass/Vol]8.5 mg/dLNormal8.5-10.1[facility] [place] Comment on above:Performed By: #### LIVER, LIPID, BMP, TSH #### [facility] [address] [place] [address] Dr. Neelima BansalChloride [Moles/Vol]104 mmol/RVididm72-984EubKing'S Daughters Medical Center [place] Comment on above:Performed By: #### LIVER, LIPID, BMP, TSH #### [facility] [address] [place] [address] Dr. Neelima BansalCO2 [Moles/Vol]29.4 mmol/ODykdwy54.0-32.0[facility] [place] Comment on above:Performed By: #### LIVER, LIPID, BMP, TSH #### [facility] [address] [place] [address] Dr. Neelima BansalCreatinine [Mass/Vol]1.01 mg/dLNormal0.70-1.30The [facility] HospitalComment on above:Performed By: #### LIVER, LIPID, BMP, TSH #### [facility] [address] [place] [address] Dr. Ortez ChangEGFR-AF SAUDI ARABIAN>60Normal>=60The [facility]itan HospitalComment on above:Performed By: #### LIVER, LIPID, BMP, TSH #### [facility] [address] [address] [address] Neleima WadeGFR-NON AF SAUDI ARABIAN>60Normal>=60The [facility] Daytonment on above:Performed By: #### LIVER, LIPID, BMP, TSH #### [facility] [address] [place] [address] Dr. Neelima BansalGlucose [Mass/Vol]136 mg/dLCritically vebc52-462Luw [facility] HospitalComment on above:Performed By: #### LIVER, LIPID, BMP, TSH #### [facility] [address] [place] [address] Dr. Neelima BansalPotassium [Moles/Vol]4.2 mmol/LNormal3.5-5.1[facility] Comment on above:Performed By: #### LIVER, LIPID, BMP, TSH #### [facility] [address] [place] [address] Dr. Neelima BansalSodium [Moles/Vol]140 mmol/UEaagle303-878Ugb [facility] Comment on above:Performed By: #### LIVER, LIPID, BMP, TSH #### [facility] [address] [place] [address] Dr. Neelima BansalUrea nitrogen [Mass/Vol]21.0 mg/dLCritically high7.0-18.0The [facility] HospitalComment on above:Performed By: #### LIVER, LIPID, BMP, TSH #### [facility] [address] [place] [address] Dr. Neelima Guzman nitrogen/Creatinine [Mass ratio]20.8 mg/mgNormalThe [facility] HospitalComment on above:Performed By: #### LIVER, LIPID, BMP, TSH #### [facility] [address] [place] [address] Dr. Neelima Simms 57-56-3607FEE1.401 uIU/mLNormal0.358-3.740[facility] OhioComment on above:Performed By: #### LIVER, LIPID, BMP, TSH #### [facility] [address] [place] [address] Dr. Neelima ENGEL [facility] SystemComment on above: Result Comment: <0.34 UIU/ml HYPERTHYROID 0.34-5.60 UIU/ml EUTHYROID >5.60 UIU/ml HYPOTHYROIDPerformed By: #### LIVER, LIPID, BMP, TSH #### [facility] [address] [place] [address] Dr. Neelima BansalVITAMIN D 25 OHon 66-97-8302VBI D 25-OH54.0 ng/mLNCleveland Clinic Mentor HospitalComment on above:Performed By: #### PSASC, VITAD #### [facility] [address] [place] [address] Dr. Neelima PRATHERSESophia [facility]ena Health SystemComment on above: Result Comment: <20 ng/mL Vit D deficient 20 - <30 ng/mL Vit D insufficient 30 - 100 ng/mL Vit D sufficient >100 ng/mL Potential ToxicityPerformed By: #### PSASC, VITAD #### [facility] [address] [place] [address] Dr. Neelima BansalCardiovascular Lab Reporton 67-12-4595Ptybgsapezzvkz Lab Report [facility] Patient Name: [facility] MR #: [id number] Department of Physician: Imtiaz Haq M.D. Division of Service Date: 06/21/2018 Cardiology Birthdate: 1960 Adult Cardiovascular Room #: [address] [address] Cardiovascular Laboratory Report PROCEDURES: Transesophageal echocardiogram and cardioversion. INDICATION: Atrial fibrillation. FELLOW: Dr. Sanchez. PROCEDURE IN DETAIL: An informed consent was obtained from the patient after explaining indication, risks, benefits, and alternatives. The patient understood and agreed and signed the consent form. The patient was brought to the labor standards director and RYANN was performed under conscious sedation. [...] Sanchez MD Date Trans: 06/22/2018 03:57 A/lisa DN_JN:[id number] cc: Michael Spangler M.D. [address] [facility] [address]EqtihkXlwWooster [facility] Vital Signs Date TimeVital SignValuePerforming VgpbetntwLgpvxgnq07-73-1931 09:09-0500Body bdulop064.8 cmMichael Spangler MD Work Phone: [phone])567-[address] [place], [place] 9453111-07-2025 09:09-0500 Body mass index (BMI) [Ratio]36 kg/m2Michael Spangler MD Work Phone: [phone])184-[address] [place], [place] 9453111-07-2025 09:09-0500 Body ppddriushgp04.5 [degF]Michael Spangler MD Work Phone: [phone])495-[address] [place], [place] 9453111-07-2025 09:09-0500 Body iwawep199.85 kgMichael Spangler MD Work Phone: [phone])361-[address] [place], [place] 9453111-07-2025 09:09-0500 Diastolic blood hxafsrld23 mm[Hg]Michael Spangelr MD Work Phone: [phone])596-[address] [place], [place] 9453111-07-2025 09:09-0500 Heart rate75 /minMichael Spangler MD Work Phone: [phone])376-[address] [place], [place] 9453111-07-2025 09:09-0500 Respiratory rate18 /minMichael Spangler MD Work Phone: [phone])[address]11-07-2025 09:09-0500 SaO2% (BldA) [Mass fraction]92 %Michael Spangler MD Work Phone: [phone])[address]11-07-2025 09:09-0500 Systolic blood mm[Hg]Michael Spangler MD Work Phone: [phone] [place], [place] 2830510-06-2025 11:48-0400 Body .34 cmMichael Spangler MD Work Phone: [phone] [place], [place] 2830510-06-2025 11:48-0400 Body mass index (BMI) [Ratio]34.2 kg/m2Michael Spangler MD Work Phone: [phone] [place], [place] 7931410-06-2025 11:48-0400 Body byvrxlfuxnl81.9 [degF]Michael Spangler MD Work Phone: [phone] [place], [place] 7931410-06-2025 11:48-0400 Body xyrnwb918.58 kgMichael Spangler MD Work Phone: [phone])[address] [place], [place] [address]10-06-2025 11:48-0400 Diastolic blood tiehddyo18 mm[Hg]Michael Spangler MD Work Phone: [phone])[address]10-06-2025 11:48-0400 Heart rate70 /Brian Spangler MD Work Phone: [address] [place], [place] [address]931410-06-2025 11:48-0400 Respiratory rate16 /Brian Spangler MD Work Phone: [phone])[address]10-06-2025 11:48-0400 SaO2% (BldA) [Mass fraction]93 %Michael Spangler MD Work Phone: [phone]10-06-2025 11:48-0400 Systolic blood mm[Hg]Michael Spangler MD Work Phone: [facility]09-03-2025 07:41-0400 Body govwth304.3 cmPgabriela Letty [employer] Work Phone: [facility]09-03-2025 07:41-0400Body mass index (BMI) [Ratio]33.89 kg/u1Tdrdbo Letty [employer] Work Phone: [phone]09-03-2025 07:41-0400Body nmqsno729.22 kgPolina Letty [employer] Work Phone: [phone]09-03-2025 07:41-0400Diastolic blood gydawvyc48 mm[Hg]Tsering Letty [employer] Work Phone: [facility]09-03-2025 07:41-0400Heart osct047 /minPolina Letty [employer] Work Phone: [facility]09-03-2025 07:41-0400Systolic blood mm[Hg]Tsering Letty [employer] Work Phone: [facility]05-06-2025 15:00-0400Body ardrwy684.3 cmMichael Spangler MD Work Phone: [facility] CenterJposbwaiuf57-80-2942 15:00-0400Body mass index (BMI) [Ratio]34.73 kg/m2Michael Spangler MD Work Phone: [facility] CenterMlqsnmfafh73-02-2689 15:00-0400Body temperature 97.5 [degF]Michael Spangler MD Work Phone: [facility] CenterMlxactgsew76-39-3655 15:00-0400Body edjaob813.95 kgMichael Spangler MD Work Phone: [facility] CenterMhpywrmwca80-42-7607 15:00-0400Diastolic blood pponqqry35 mm[Hg]Michael Spangler MD Work Phone: [phone] [place], [place] [address]Xsilnouula55-88-6733 15:00-0400Heart rate71 /min Michael Spangler MD Work Phone: [phone] [place], [place] [address]Srzkpbycmh00-29-6256 15:00-0400Respiratory rate18 /minMichael Spangler MD Work Phone: 1(812)1-[address] [place], [place] [address]Yzrglkjevx95-84-8712 15:00-6747GvU5% (BldA) [Mass fraction]95 %Michael Spangler MD Work Phone: [phone] [place], [place] [address]Iblvzheuyd30-28-5674 15:00-0400Systolic blood mm[Hg]Michael Spangler MD Work Phone: [phone] [place] [address]-11-2024 08:27-0500Body idysmk309.3 cmSteven Rusher DPM Work Phone: [phone] [place] [address]-11-2024 08:27-0500Body mass index (BMI) [Ratio]35.15 kg/z8Wcutvf Rusher DPM Work Phone: [phone])[phone] [place] [address]-11-2024 08:27-0500Body mmfyoa776.31 kgSteven Rusher DPM Work Phone: [phone])740-[address] [place] [address]-06-2024 10:46-0500Body ufvpwt989.3 cmMichael Spangler MD Work Phone: [phone] [place], [place] [address]Sogutwjszh31-97-5900 10:46-0500Body mass index (BMI) [Ratio]35.15 kg/m2Michael Spangler MD Work Phone: 1(858)5-[address] [place] [address]-06-2024 10:46-0500Body temperature 97.11 [degF]Michael Spangler MD Work Phone: [phone])[facility] [place] [address]-06-2024 10:46-0500Body .31 kgMichael Spangler MD Work Phone: [phone])687-[address] [place] [address]-06-2024 10:46-0500Diastolic blood snfedvaz53 mm[Hg]Michael Spangler MD Work Phone: 1(670)903-[address] [place] [address]-06-2024 10:46-0500Heart rate74 /min Michael Spangler MD Work Phone: [address] [address]Sjltozrmjq68-22-2685 10:46-0500Respiratory rate18 /minMichael Spangler MD Work Phone: [facility] CenterNwdezskiwb72-25-8465 10:46-5277SgV1% (BldA) [Mass fraction]92 %Michael Spangler MD Work Phone: [address] [address]Omdkoenedy14-65-4507 10:46-0500Systolic blood dnynjnzw492 mm[Hg]Michael Spangler MD Work Phone: [phone] [address]Fwytmsvlqs35-43-1391 15:15-0400Body zimorh363.3 cmSteven Rusher DPM Work Phone: [facility] CenterKysbvssurb15-81-8049 15:15-0400Body mass index (BMI) [Ratio]34.87 kg/q0Yqqcov Rusher DPM Work Phone: [phone] [address]-31-2024 15:15-0400Body poyfog798.4 kgSteven Rusher DPM Work Phone: [phone])[address]12-05-2023 10:47-0500Body tctywp833.3 cmJessica Winter MD Work Phone: [phone] centerand Dxizks13-77-1081 10:47-0500Body hfezya780.68 kgJessica Winter MD Work Phone: [phone] centerand Vrqlmw84-28-3339 10:47-0500Diastolic blood tucealkg33 mm[Hg]Jessica Winter MD Work Phone: [phone] centerand Ljnqka79-37-2582 10:47-0500Heart rate70 /min Jessica Winter MD Work Phone: [phone] centerand Qpqllx04-04-8123 10:47-0500Systolic blood ntebgigy444 mm[Hg]Jessica Winter MD Work Phone: [phone] Vozrmg77-77-6730 15:23-0400Body ohcljk738.3 cmJessica Winter MD Work Phone: [phone] Nutent90-10-6493 15:23-0400Body .4 kgJessica Winter MD Work Phone: [place] Dfyowi63-21-9120 15:23-0400Diastolic blood mm[Hg]Jessica Winter MD Work Phone: [phone] Nbosnv65-75-6602 15:23-0400Heart rate60 /min Jessica Winter MD Work Phone: [place] Uahywe42-85-6073 15:23-0400Systolic blood oxxexddn442 mm[Hg]Jessica Winter MD Work Phone: [phone] Pubqea88-49-2871 14:02-0400Blood Pressure LocationMichael NILL [facility] [place] 05-31-2022 14:02-0400Diastolic blood wziibrmk24 mm[Hg] Terrence NILL [facility] [place] 05-31-2022 14:02-0400Heart rate68 /minMichael NILL [facility] [place] 05-31-2022 14:02-0400Respiratory rate16 /minMichael NILL [facility] [place] 05-31-2022 14:02-0400Systolic blood mm[Hg] Terrence NILL [facility] [place] 03-22-2022 10:36-0400Body .3 cmJessica Winter MD Work Phone: [phone] Timgpn85-96-0906 10:36-0400Body ttzxte670.67 kgJessica Winter MD Work Phone: [place] Tlmtdm28-55-1319 10:36-0400Diastolic blood cusltben18 mm[Hg]Jessica Winter MD Work Phone: [place] Klekcd69-58-6022 10:36-0400Heart rate56 /min Jessica Winter MD Work Phone: [place] Jqfbxe72-19-6923 10:36-0400Systolic blood ucylxuuw817 mm[Hg]Jessica Winter MD Work Phone: [place] [facility] Encounters Encounter DateEncounter TypeCare ProviderFacilityStart: 02-08-2025 End: 22-80-7168hdjjjajgrzKlun Naderer MD Work Phone: -[facility] ClydeStart: 02-08-2025 End: 60-19-4095Tvgeoxj encounter procedureMichael Spangler [facility] Work Phone: Start: 01-07-2025 End: 20-82-7314woqxrzhiobXowt Naderer MD Work Phone: [facility] Work Phone: Start: 01-07-2025 End: 85-95-1895Vmxrscf encounter procedureMichael Spangler [facility] Work Phone: Start: 68-40-0456Sjx-patient / Non-visitJessica King MD-[facility] Work Phone: Start: 12-05-2024 End: 47-97-6084Zwpbjbk encounter procedureTsering Saenz APRN.CNP Work Phone: CardiologyComment on above:Persistent atrial fibrillation (HCC) (Primary Dx); Primary hypertension; Chronic anticoagulation; Obstructive sleep apnea syndrome; Pre-diabetesStart: 12-05-2024 End: 53-98-2880oevyrijewfFJZRCIX M WAZNIFacility:[facility] Hospitaltart: 12-04-2024 End: 81-95-6550corldeiuqrUcyvgzv M Wazni MD Work Phone: cardiologyComment on above:Patient Education (EPS- DCC)Start: 11-29-2024 End: 06-47-5965Lgdnxangd Simone Winter MD Work Phone: cardiologyComment on above:Received Outside Medical Records (EKG)Start: 11-28-2024 End: 00-06-9572Ftkrvkddn Simone Winter MD Work Phone: cardiologyComment on above:Appointment (Cardioversion) Start: 11-26-2024 End: 77-96-3523Lbmvizhsp Result EncounterGeneric External Data ProviderNOMS External Department UnsolicitedStart: 11-26-2024 End: 85-97-6763Fhtkisawp Result EncounterGeneric External Data ProviderNOMS External Department UnsolicitedStart: 11-26-2024 End: 46-49-8624Wkzmedeuh encounterJessica Winter MD Work Phone: cardiologyComment on above:Patient Update (Back in AFib)Start: 09-03-2024 End: 33-22-0205NdqqtbMncmhkb M Wazni MD Work Phone: cardiologyComment on above:Refill Request (Eliquis) Persistent atrial fibrillation (HCC) (Primary Dx)Start: 09-01-2024 End: 32-86-2382Csvarbsxx Result Nitin Spangler MD Work Phone: noms External Department UnsolicitedStart: 09-01-2024 End: 41-76-4569Zhaubyjvp Result Nitin Spangler MD Work Phone: noms External Department UnsolicitedStart: 09-01-2024 End: 89-06-9773BjicevJafmwywSharon Winter MD Work Phone: CardiologyComment on above:Refill RequestStart: 08-07-2024 End: 73-35-6129brnfowxpweSZFK NADERERNot AvailableStart: 08-07-2024 End: 40-71-3577Jsumah outpatient visit 25 minutesMichael Spangler MD Work Phone: noms CWM FMComment on above:Type 2 diabetes mellitus with hyperglycemia, without long-term current use of insulin (CMS/HCC) (Primary Dx); Essential hypertension, benign (CMS/HCC); AF (paroxysmal atrial fibrillation) (CMS/HCC); REAL on CPAP; Plantar fasciitis of right foot; Annual physical examStart: 08-07-2024 End: 48-01-4328Nogksue encounter procedureMichael Spangler MD Work Phone: noms HealthcareStart: 08-07-2024 End: 99-34-4566Ocykqf Schuyler Spangler MD Work Phone: noms CWM FMStart: 08-07-2024 End: 13-92-3954Xaalya Schuyler Spangler MD Work Phone: noms CWM FMStart: 05-30-2024 End: 35-87-8076ubetinsaweXARTDGrand Lake Joint Township District Memorial Hospitaltart: 05-21-2024 End: 18-10-1096Kcpzavgoa encounterOuspaolo Winter MD Work Phone: cardiologyComment on above:Patient QuestionStart: 02-13-2024 End: 12-04-1734Jwvuhe flowsheetSteven A Rusher DPM Work Phone: noms PODIATRYStart: 02-13-2024 End: 92-26-1767Rlfoid flowsheetSteven A Rusher DPM Work Phone: noms PODIATRYStart: 02-13-2024 End: 95-18-0902Esqdzqcbe Result EncounterMichael Spangler MD Work Phone: noms External Department UnsolicitedStart: 02-13-2024 End: 13-70-1897Uqeyba follow up visit related to original pxSteven A Rusher DPM Work Phone: noms PODIATRYComment on above:Postoperative visit (Primary Dx); Dermatophytosis of nailStart: 02-13-2024 End: 17-96-1563jacawyuwzqLBQDOC A RUSHERNot AvailableStart: 02-10-2024 End: 62-83-7621Gbyxrb flowsheetSteven A Rusher DPM Work Phone: noms PODIATRYStart: 02-10-2024 End: 89-55-6167Eprxxo flowsheetSteven A Rusher DPM Work Phone: noms PODIATRYStart: 02-08-2024 End: 63-70-1647Sjxwtnalbaro Spangler MD Work Phone: noms CWM FMStart: 02-08-2024 End: 20-93-6561Blszjeramírez Spangler MD Work Phone: NOYZ CWM FMStart: 02-08-2024 End: 33-98-8315bxmwmjbcoaSSPB NADERERNot AvailableStart: 02-08-2024 End: 58-45-2382Uyabfd outpatient visit 25 minutesMichael Spangler MD Work Phone: noms CWM FMComment on above:Type 2 diabetes mellitus with hyperglycemia, without long-term current use of insulin (CMS/HCC) (Primary Dx); Essential hypertension, benign (CMS/HCC); AF (paroxysmal atrial fibrillation) (CMS/HCC); Gastroesophageal reflux disease without esophagitisStart: 02-02-2024 End: 96-08-4941Jojfcgz encounter procedureSteven A Rusher DPM Work Phone: noms PODIATRYComment on above:Dermatophytosis of nail (Primary Dx); Dystrophic nail; Pain of left great toe; Difficulty walkingStart: 02-02-2024 End: 30-53-0164bneotugodaYZQFLB A RUSHERNot AvailableStart: 02-01-2024 End: 28-13-5030Isqrpn flowsheetSteven A Rusher DPM Work Phone: NOMS PODIATRYStart: 02-01-2024 End: 21-23-9605Pxsnxc flowsheetSteven A Rusher DPM Work Phone: NOMS PODIATRYStart: 01-05-2024 End: 99-62-6982BdkfnjJrudncf M Wazni MD Work Phone: cardiologyComment on above:Refill RequestStart: 10-27-2023 End: 36-99-2907ggmzdfabrcQZTSER A RUSHERNot AvailableStart: 09-22-2023 End: 39-09-6930tanyegqsmqCPUFXP A RUSHERNot AvailableStart: 09-08-2023 End: 75-04-2505wtptgciiklIBRQWM A RUSHERNot AvailableStart: 08-22-2023 End: 75-74-5482rlsbxexfzcCMPPNV A RUSHERNot AvailableStart: 12-15-9423Uhxgdayang Link MD Work Phone: CardiologyComment on above:Refill RequestStart: 15-65-7729pnuvurgiaoHrrbutv M Wazni MD Work Phone: cardiologyComment on above:eliquisStart: 03-08-2023 End: 02-18-5950Kxqduucji Result EncounterGeneric External Data ProviderNOMS External Department UnsolicitedStart: 03-08-2023 End: 73-69-9026Cnvikclzf Result EncounterGeneric External Data ProviderNOMS External Department UnsolicitedStart: 03-08-2023 End: 67-58-8459Zebstvl encounter procedureOuspaolo Winter MD Work Phone: cardiologyComment on above:Persistent atrial fibrillation (HCC) (Primary Dx); Primary hypertensionStart: 06-27-8640WjzxglBfibtqlSharon Winter MD Work Phone: cardiologyStart: 77-81-9377ngxkkfovyyCrveufc R NILL Facility:[facility]Start: 10-20-2022 End: 23-46-0803gnjzpntyxeKreqbjq R NILLFacility::[id number]: 09-22-2022 End: 90-78-8232rkanvqnnaaKaflltw R NILLFacility: BellevueStart: 03-11-2022 End: 58-87-0376Xhwcxwq evaluation of patient and reportResearch Nurse Card Eps MainCardiologyComment on above:IRB 20-461 MAP AF PI: Dr. Shannon Dozier (Primary Dx)Start: 03-11-2022 End: 81-29-2074Jjlvncg entered into trialResearch Nurse Card Eps MainCardiology Start: 02-16-2022 End: 42-56-3650lbdyygxyapOM MICHAEL Gregory NADERERFacility:Q0Vsasn: 93-43-9193Auocyb Jessica Winter MD Work Phone: cardiologyComment on above:Refill RequestStart: 10-16-2021 End: 24-39-5235Lxrwlsg encounter procedureMichael R NILL General Surgery Nill/Said [place] Start: 10-12-2021 End: 80-61-4724djzgcoyrmxIXNDHS H FAWWADFacility:S4Bdkbo: 10-07-2021 End: 39-92-1361nkxhplszcyIS MICHAEL NILLFacility:G3Vfzed: 10-01-2021 End: 88-89-7706kfxodlpoqjRYEAOF H FAWWADFacility:B6Wskwl: 24-10-1755Vvgirk Only Jessica Winter MD Work Phone: cardiologyComment on above:Persistent atrial fibrillation (HCC) (Primary Dx); IRB 20-461 MAP AF PI: Dr. Shannon RodriguezinStart: 68-16-2987Qfhcbth entered into Milton Winter MD Work Phone: cardiologyStart: 09-24-2021 End: 38-70-7778dwfbntcxuaJbslacgpmp Monitoring Lab Work Phone: cardiologyComment on above:Event (zio )Start: 09-24-2021 End: 90-07-7605Ddhyynr encounter procedureJessica Winter MD Work Phone: cardiologyComment on above:Atrial fibrillation, persistent (HCC) (Primary Dx); Obstructive sleep apnea syndrome; Left atrial thrombus; Ejection fraction < 50%Start: 76-58-2778AuyuizVzncauq M Wazni MD Work Phone: cardiologyComment on above:Refill RequestStart: 09-01-2021 End: 32-65-5938Oolated encounter procedureMichael R NILL General Surgery Nill/Said [place] Start: 25-01-8226werimbcsdhBjnnzsh M Wazni MD Work Phone: cardiologyComment on above:Any treatment adjustment Start: 46-57-6008Bzuscnkik for general adult medical examination without abnormal findingsDR MICHAEL [facility] HospitalStart: 08-17-2021 End: 83-70-9393wmhpbpojtrRS MICHAEL Gregory NADERERFacility:L4Egeos: 08-17-2021 End: 76-23-4430Xymnsikjj for general adult medical examination without abnormal findingsDR MICHAEL Gregory NADERERFacility:B3Ucfpi: 76-65-9442Psrcqynll encounterJessica Winter MD Work Phone: cardiologyComment on above:Medication Problem (Prior auth denial )Start: 79-10-5891Cormscylc encounterJessica Winter MD Work Phone: cardiologyComment on above:Prior Auth from Cover My MedsStart: 97-27-8637Gufiqe Poornima Winter MD Work Phone: cardiologyComment on above:Persistent atrial fibrillation (HCC) (Primary Dx); IRB 20-461 MAP AF PI: Dr. Shannon RodriguezinStart: 94-23-9957Hcojgaq entered into Milton Winter MD Work Phone: cardiologyStart: 06-23-2021 End: 97-44-0510thwsbijrjrNdyqsyjojb Monitoring Lab Work Phone: cardiologyComment on above:Holter Monitor Application (24)Start: 06-23-2021 End: 67-31-4964Szleyjb encounter procedureJessica Winter MD Work Phone: cardiologyComment on above:Atrial fibrillation, persistent (HCC) (Primary Dx)Start: 06-23-2021 End: 31-13-0042Bwumvsj evaluation of patient and reportResearch Nurse Card Eps MainCardiologyComment on above:IRB 20-461 MAP AF PI: Dr. Shannon Dozier (Primary Dx)Start: 06-23-2021 End: 40-09-8641Yxvhmms entered into trialResearch Nurse Card Eps MainCardiology Start: 80-32-4271Ncvlvvl entered into trialResearch [facility] Hospitaltart: 06-21-2018 End: 39-42-3695Iwzdvkf encounter procedurePROVIDER UNKNOWNFacility:[facility] Procedures DateProcedureProcedure DetailPerforming ClinicianStart: 38-30-7097FYX 12-LEAD Generic External Data ProviderStart: 55-31-1164ULL CBC WITH AUTO DIFFMichael Spangler MD Work Phone: Start: 42-81-8299IOK HEMOGLOBIN O5MGvfmMichael Spangler MD Work Phone: Start: 69-97-0207Qgq routine ecg w/least 12 lds w/i&r Generic External Data ProviderStart: 21-65-5168WyaizcdhxoiRrpvru Rusher DPM Work Phone: Start: 42-75-1318BaxsumckfyhmjQtqpdds NILL Start: 94-75-9779LJJ screeningSHAIKH FAWWADComment on above:Performed By: #### PSASC, VITAD #### [facility] [address] [place] [address] Dr. Neelima BansalStart: 14-92-3082GxksyvtqlslRuridbg NILL CardioversionMichael NILL Catheter ablation of tissue of heartMichael NILL TonsillectomyMichael NILL Plan of Treatment DateCare ActivityDetailAuthorStart: 00-40-6616UWI Vaccine (1 - 1-dose 75+ series)RSV Vaccine (1 - 1-dose 75+ series)[facility]: 10-20-2032 Screening for malignant neoplasm of colonNOMS [facility] HospitalStart: 09-01-2029 Prostate specific antigen measurementProstate Cancer Screening Discussion [facility]: 81-62-1124Cizvhjls ScreeningDiabetes ScreeningGalion Community Hospitaltart: 94-95-6890CBWUHKPO CANCER SCREENING DISCUSSIONPROSTATE CANCER SCREENING DISCUSSIONGalion Community Hospitaltart: 39-65-2954Itlkwybc specific antigen measurementProstate Cancer Screening DiscussionGalion Community Hospitaltart: 03-07-2025 End: 58-92-0142Duyegkg encounter qcflgbegq88/04/2025 10:00 AM EST Office Visit Cardiology [address] [id number] QnmoiJessica Winter MD [address] [place] [address] Dx.PERSISTANT AFIBCardiologyComment on above:Dx. PERSISTANT AFIBStart: 03-07-2025 End: 12-42-9530uoswoqbpkw02/04/2025 9:00 AM EST Procedure Cardiology [address] [place] [address] Dx.PERSISTANT AFIBCardiologyComment on above:Dx. PERSISTANT AFIBStart: 02-08-2025 End: 05-84-3169Jqmrtkw encounter xercqvbmj67/07/2025 9:00 AM EST Office Visit [facility] [address] [place] [address] Michael Spangler MD [address] [place] [phone] [facility] FMStart: 93-70-1380Lnmnrdo referralKettering Health Work Phone: Start: 12-05-2024 End: 89-32-3058Jdkbnysqsuauq elective arrhythmia externalCARDIOVERSION EXTERNAL ELECTIVE Persistent atrial fibrillation (HCC) 12/05/2024 10:35 AM EDTMC EP LAB Start: 12-05-2024 End: 67-83-0898Jqtldfyxc to same day surgery [facility] EP LabComment on above:CARDIOVERSION EXTERNAL ELECTIVEStart: 12-05-2024 End: 26-03-6832ncpbydpjea74/03/2025 7:00 AM EDT Procedure Cardiology [address] [place] [address] DCCCardiologyComment on above:DCCStart: 12-05-2024 End: 46-61-3469Mgahwginovpcs elective arrhythmia externalMC EP LABStart: 89-12-3900Ypmsbshzzc hospital visit by [facility] EP LabComment on above: Persistent atrial fibrillation (HCC) [I48.19]Start: 12-05-2024 End: 15-55-6075Yirocac encounter procedureCardiologyComment on above:DCC interviewStart: 18-83-4095Yzqinxgon vaccinationALTA VIEW HOSPITAL HealthcareStart: 08-26-2024 Urine screening for proteinDiabetes: Urine Protein ScreeningALTA VIEW HOSPITAL Healthcare Start: 05-52-0480Cphrrwsfte A1c measurementDiabetes: Hemoglobin Z1AGPVF HealthcareStart: 08-07-2024 End: 71-58-5025Avfxqeb encounter tiyvvhsqg84/06/2025 2:45 PM EDT Office Visit [facility] [address] [place] [phone] Michael Spangler MD [address] [place] [address] [facility] FMStart: 08-07-2024 End: 18-76-3110Pjkxl metabolic 1998 panel - Serum or PlasmaBasic metabolic panel Lab Routine Annual physical exam Expected: 08/07/2024 (Approximate), Expires: 08/07/2025[facility] HealthcareComment on above:Expected: 08/07/2024 (Approximate), Expires: 08/07/2025Start: 08-07-2024 End: 47-48-9472HNI W Auto Differential panel - BloodCBC and differential Lab Routine Annual physical exam Expected: 08/07/2024 (Approximate), Expires: 0 08/07/2025[facility] HealthcareComment on above:Expected: 08/07/2024 (Approximate), Expires: 08/07/2025Start: 08-07-2024 End: 99-60-7625Yxphcxtchf A1c/Hemoglobin.total in BloodHemoglobin A1c Lab Routine Annual physical exam Expected: 08/07/2024 (Approximate), Expires: 08/07/2025[facility] HealthcareComment on above:Expected: 08/07/2024 (Approximate), Expires: 08/07/2025Start: 08-07-2024 End: 49-40-0933Rfgfxid function 2000 panel - Serum or PlasmaHepatic function panel Lab Routine Annual physical exam Expected: 08/07/2024 (Approximate), Expires: 08/07/2025[facility] HealthcareComment on above:Expected: 08/07/2024 (Approximate), Expires: 08/07/2025Start: 08-07-2024 End: 22-78-1968Jnhqx 1996 panel - Serum or PlasmaLipid panel Lab Routine Annual physical exam Expected: 08/07/2024 (Approximate), Expires: 08/07/2025[facility] HealthcareComment on above:Expected: 08/07/2024 (Approximate), Expires: 08/07/2025Start: 08-07-2024 End: 41-07-8231Tktbynmwnsqi/Creatinine panel in random UrineMicroalbumin / creatinine, urine ratio Lab Routine Type 2 diabetes mellitus with hyperglycemia, without long-term current use of insulin ([facility]) Expected: 08/07/2024 (Approximate), Expires: 08/07/2025[facility] Work Phone: Comment on above:Expected: 08/07/2024 (Approximate), Expires: 08/07/2025Start: 08-07-2024 End: 30-96-0852Unvljuxi specific Ag [Mass/volume] in Serum or PlasmaPSA Lab Routine Annual physical exam Expected: 08/07/2024 (Approximate), Expires: 08/07/2025[facility] HealthcareComment on above:Expected: 08/07/2024 (Approximate), Expires: 08/07/2025Start: 08-07-2024 End: 93-92-2426Npotwseftdp [Units/volume] in Serum or PlasmaTSH Lab Routine Annual physical exam Expected: 08/07/2024 (Approximate), Expires: 08/07/2025[facility] HealthcareComment on above:Expected: 08/07/2024 (Approximate), Expires: 08/07/2025Start: 11-22-6806ERWTKYKG SCREENDIABETES SCREENGalion Community Hospitaltart: 26-05-7651Urteotit ScreeningDiabetes ScreeningGalion Community Hospitaltart: 02-27-2024 Hemoglobin A1c measurementDiabetes: Hemoglobin H2CENBI HealthcareStart: 02-13-2024 End: 87-83-5944Gzinyde encounter procedureNOSAINT JOHN'S HOSPITAL PODIATRYComment on above: ArrivedStart: 02-08-2024 End: 25-48-0941Meffezesbi A1c/Hemoglobin.total in BloodHemoglobin A1c Lab Routine Type 2 diabetes mellitus with hyperglycemia, without long-term current use of insulin ([facility]) Expected: 02/08/2024 (Approximate), Expires: 02/07/2025 [facility] Healthcare Work Phone: Comment on above:Expected: 02/08/2024 (Approximate), Expires: 02/07/2025Start: 02-08-2024 End: 41-48-5196Slesecq encounter hzpanwljf23/06/2024 10:30 AM EST Office Visit [facility] [address] [place] [address] Michael Spangler MD [address] [place] [address] [facility] FMStart: 02-02-2024 End: 00-69-3627Hhzemat encounter dynjvalaf74/31/2024 3:30 PM EDT Office Visit [facility] [address] [place] [address] Radha Bonilla, DPFernando [address] [place] [address] [facility] PODIATRYStart: 56-76-0844Ovbgz-19 Vaccine () Covid-19 Vaccine ()[facility]: 77-84-5479Glayhwocf vaccinationGalion Community Hospitaltart: 89-92-8222Khgmsiqti for malignant neoplasm of colonGalion Community Hospitaltart: 24-41-2737Coqrkvnfeh Health ScreeningBehavioral Health ScreeningCleWilson Street Hospitaltart: 34-57-0707Fduxkngrsy AssessmentDepression AssessmentGalion Community Hospitaltart: 65-43-9171IV Controlled (<130/80)BP Controlled (<130/80)[facility]: 46-48-3889Xepus-19 Vaccine ( season) Covid-19 Vaccine ()[facility]: 36-21-2451Chthr-19 Vaccine ()Covid-19 Vaccine ()[facility]: 24-88-5654Ywxanrlte vaccinationInfluenza Vaccine (#1)[facility]: 65-32-2668Nptvvtzgus AssessmentDepression AssessmentGalion Community Hospitaltart: 84-10-8014Bvvbxoybs vaccinationGalion Community Hospitaltart: 11-19-2021 COVID-19 VACCINE (4 - Booster for Pfizer series)COVID-19 VACCINE (4 - Booster for Pfizer series)[facility]: 63-09-5363VWJTI-19 VACCINE (4 - Booster for Pfizer series)COVID-19 VACCINE (4 - Booster for Pfizer series)[facility]: 14-26-3977LXF Vaccine (1 - 1-dose 60+ series)RSV Vaccine (1 - 1- dose 60+ series)[facility]: 19-60-8237KLYVFYNAEL ASSESSMENTDEPRESSION ASSESSMENTGalion Community Hospitaltart: 26-21-6978QHRAH-19 VACCINE (3 - Booster for Pfizer series)COVID-19 VACCINE (3 - Booster for Pfizer series)[facility] Start: 50-60-7081Dlskjvslv vaccinationINFLUENZA (#1)[facility]: 34-28-4991Axcue microalbumin profileGalion Community Hospitaltart: 79-69-7843PBWPVERI CANCER SCREENING DISCUSSIONPROSTATE CANCER SCREENING DISCUSSIONWvumedicine Barnesville Hospital Start: 91-07-5556Ypmkcdhhgyqo Vaccine: 50+ (1 of 1 - PCV)Pneumococcal Vaccine: 50+ (1 of 1 - PCV)[facility]: 77-04-1631APKDEQNS VACCINE (1 of 2) SHINGRIX VACCINE (1 of 2)[facility]: 66-33-9280DWRJWRVPK (FIT-DNA) COLOGUARD (FIT-DNA)[facility]: 50-62-3631YpdjjcwuwxiNEQDHBXCKGP [facility]: 39-18-1049QDKEMJQJIV CANCER SCREENINGCOLORECTAL CANCER SCREENINGGalion Community Hospitaltart: 23-95-9334ME COLONOGRAPHYCT COLONOGRAPHY [facility]: 31-35-7626TUCSG OCCULT BLOODFECAL OCCULT BLOODGalion Community Hospitaltart: 27-75-5597Dcjhnzxxl for malignant neoplasm of colonWvumedicine [facility] Start: 08-28-2678IOUAOTYPPBKELIDWVEOEAPRNVZExnprogai ClinicStart: 1996 Lipid 1996 panel - Serum or PlasmaLipid ScreeningGalion Community Hospitaltart: 93-38-3793Famtz panelLipid ScreeningGalion Community Hospitaltart: 65-45-3095BMQBO SCREENLIPID SCREENGalion Community Hospitaltart: 79-38-1895Numib screening for protein Diabetes: Urine Protein ScreeningLafayette Regional Health CenterStart: 26-20-9036Krjgtj PCP Team Chronic Disease VisitAnnual PCP Team Chronic Disease VisitWvumedicine Barnesville Hospital Start: 62-82-8116Decaria ScreeningAnxiety ScreeningGalion Community Hospitaltart: 11-29-8054OL Controlled (<130/80)BP Controlled (<130/80)[facility]: 64-34-6138Wxojhbvnyz ScreeningDepression ScreeningGalion Community Hospitaltart: 05-93-7805WYXXYOGCN C SCREENINGHEPATITIS C SCREENINGGalion Community Hospitaltart: 39-60-2049Knhfyfeka C screeningHepatitis C ScreeningGalion Community Hospitaltart: 55-18-7040HCL SCREENINGHIV SCREENINGGalion Community Hospitaltart: 48-14-6568LMK screeningHIV ScreeningGalion Community Hospitaltart: 21-84-6720Crcgi depression screening assessmentDEPRESSION SCREENINGGalion Community Hospitaltart: 09-07-1971 Glaucoma screeningDiabetes: Retinopathy ScreeningLafayette Regional Health CenterStart: 93-75-7885Xrepgmudzs A1c measurementDiabetes: Hemoglobin A3YCJVSLafayette Regional Health Center Start: 31-42-7228Pjmcvffnt for malignant neoplasm of colonLafayette Regional Health Center End: 39-48-7490WMR COMPLETEECG COMPLETE ECG Routine Persistent atrial fibrillation (HCC) IRB 20-991 MAP AF PI: Dr. Shannon Dozier 1 [facility]20[facility] Work Phone: comment on above:1 Occurrences starting 06/24/2021 until 06/24/2022 End: 46-86-3903JDB COMPLETEECG COMPLETE ECG Routine Persistent atrial fibrillation (HCC) IRB 20-371 MAP AF PI: Dr. Shannon Dozier 1 Occurrences starting 09/30/2021 [facility] Work Phone: comment on above:1 Occurrences starting 09/30/2021 until 09/30/2022 End: 53-36-8038ADF COMPLETEECG COMPLETE ECG Routine Persistent atrial fibrillation (HCC) 1 Occurrences starting 09/03/2024 [facility] 6[facility] Work Phone: comment on above:1 Occurrences starting 09/03/2024 until 09/03/2025 End: 16-22-6781MUZ COMPLETEECG COMPLETE ECG Routine Persistent atrial fibrillation (HCC) 1 Occurrences starting 11/28/2024 until 6[facility] Work Phone: comment on above:1 Occurrences starting 11/28/2024 until 11/28/2025EchocardiographyECHO Cardiology Routine Atrial fibrillation, persistent (HCC) Ordered: 06/23/2021[facility] Work Phone: comment on above:Ordered: 06/23/2021MR Knee - right WO [facility]OUTS[facility] VENDOR CARDIAC OUTPATIENT EXTENDED RHYTHM RECORDING (WITHOUT TELEMETRY)OUTSIDE VENDOR CARDIAC OUTPATIENT EXTENDED RHYTHM RECORDING (WITHOUT TELEMETRY) Holter Routine Persistent atrial fibrillation (HCC) IRB 20-931 MAP AF PI: Dr. Shannon Dozier Ordered: 06/24/2021 [facility] Work Phone: comment on above:Ordered: 2OUTSIDE VENDOR CARDIAC OUTPATIENT EXTENDED RHYTHM RECORDING (WITHOUT TELEMETRY)OUTSIDE VENDOR CARDIAC OUTPATIENT EXTENDED RHYTHM RECORDING (WITHOUT TELEMETRY) Holter Routine Persistent atrial fibrillation (HCC) IRB 20-031 MAP AF PI: Dr. Shannon Dozier Ordered: 09/30/2021[facility] Work Phone: comment on above:Ordered: 09/30/2021atient [facility] Work Phone: XR Knee - right 4 [facility] Immunizations Immunization DateImmunizationNotesCare IwdflfusOurnrrlr05-05-2862Xludpg Cook Cap SARS-CoV-2 VaccinationSteven Rusher DPM Work Phone: [facility] CenterSqpyclktyn84-28-7778Yccjrw Purple Cap SARS-CoV-2 VaccinationSteven Rusher DPM Work Phone: [facility] CenterLpshtsklks23-54-6764DNCK-BkR-2 (COVID-19) mRNA BNT-162b2 vaxMichael NILL General Surgery [place] [id number] Purple Cap SARS-CoV-2 Vaccination Radhamanjit Bonilla DPM Work Phone: [facility] CenterXmyagjfzrr13-28-4221WJTG-OoQ-4 (COVID-19) mRNA BNT-162b2 vaxMicvicentel NILL General Surgery [place] [id number] toxoid, reduced diphtheria toxoid, and acellular pertussis vaccine, adsorbedResearch [facility] Payers DatePayer CategoryPayerPolicy [id number] Cross Blue Shield [id number] [id number] MMO SUPERMED PLUS [id number] 2018-Present [phone] [address] [place] [address] [id number].05550-53-8089Vrcjccj 1.2.840.592335.1.13.159.2.7.3.650000.[id number] 2.0.1.059593.3.579.[id number] 2..1.728716.3.579.2.52405-53-9065Acsphty0147542 2.840.1.815657.3.579.2.96760-13-2415Zwqmgjz8134021 2.16840.1.510466.3.579.2.37217-30-9573Onoogam6427316 2.840.1.159427.3.579.2.54461-56-2554Hcnyjvj1188374 2.840.1.521314.3.579.2.87158-40-6793Qauxtat1433933 2.16.840.1.538599.3.579.2.39572-00-1910Zjkfudc3530763 2.16.840.1.574649.3.579.2.87394-34-8975Ntocscc09243779 2.16.840.1.658722.3.579.2.73445-22-6474Ahgtnup04242860 2.16.840.1.244310.3.579.2.90277-92-8228Hujobgi85825658 2.16.840.1.117683.3.579.2.99078-99-7028Fmiaitz2293359 2.16.840.1.405864.3.579.2.784987-75-6996Oqzwkpv1566108 2.840.1.811855.3.579.2.352761-12-0261Fqswuhf5564437 2.840.1.494024.3.579.2.748029-60-2215Pxzftcl1221075 2.840.1.221857.3.579.2.511994-32-6071Iisvijo6522387 2.840.1.109268.3.579.2.974253-25-7553Cduhmhw2231357 2.0.1.484424.3.579.2.209333-73-0879Ygivbwg3715564 2.840.1.711942.3.579.2.312450-03-8033Pwkrbhn8536678 2.0.1.404853.3.579.2.231707-81-6237CmoxdgkZM5802424 Social History DateTypeDetailFacilityStart: 07-18-2018 End: 25-37-1602Esqhdbv smoking status NHISEx-smokerWvumedicine [facility] Hospital End: 06-11-2965Lhlxlxm of tobacco useCurrent smokerWvumedicine Barnesville Hospital End: 90-19-6076Wbcpmvh of tobacco useCigarette SmokerGalion Community Hospitaltart: 07-18-2018 End: 47-28-9410Dmgnndn use and exposureSmokeless tobacco non-userGalion Community Hospitaltart: 06-23-2021 End: 20-05-4546Szplggk intakeCurrent drinker of alcohol (finding)[facility]: 58-92-9139Rufwnlq SDOH Alcohol CommentrarelCleveland Clinic Marymount Hospitaltart: 42-90-5014Yte Assigned At BirthUNC Health Johnston ClinicStart: 06-13-2021 End: 64-31-4920Hbdehtqe to SARS-CoV-2 (event)Not sureGalion Community Hospitaltart: 07-06-2018 End: 39-74-3714Czwufej smoking statusNeverGenewilson memorial hospital [facility] [place] Start: 03-11-2022 End: 98-93-5560Jdz Assigned At [facility] Start: 09-20-2021 End: 52-17-8103Njeglihh to SARS-CoV-2 (event)Unable to assessWvumedicine Barnesville Hospital Work Phone: Start: 03-11-2022 End: 42-55-7960Abhnuxk of Social functionGalion Community Hospitaltart: 11-57-4539Wnoeox identityIdentifies as male gender (finding)[facility]: 04-07-2021 Sexual orientationHeterosexual (finding)[facility]: 10-27-2023 End: 24-84-5062Tjvseabji beverage intakeEx-drinker (finding)[facility] Start: 26-01-4233Mvysayo CommentrareNOMS HealthcareStart: 40-27-7022Xlh assigned at birthNot on fileNOMS HealthcareSexMale (finding)[facility] HospitalTobacco smoking status NHISTobacco smoking consumption unknownNOMS Healthcare Medical Equipment Procedure CodeEquipment CodeEquipment Original TextEquipment IdentifierDates1 each by In Vitro route [id number]: each [id number]: 08-07-2024 Goals DatePatient GoalDesired Activity/StatePersonal health goalPersonal health goal Functional Status WpakCydovzhvbrGgwpktRwtxvags87-23-4036Bqp you deaf, or do you have serious difficulty hearingNo 12/05/2024 11:04 AM EDT Estefany Rashid RN NoCuniversity hospitals cleveland medical centerdre Krkeik08-22-1560Onn you blind, or do you have serious difficulty seeing, even when wearing glassesNo 12/05/2024 11:04 AM EDT Estefany Rashid RN NoCuniversity hospitals cleveland medical centerdre Dkakzi87-11-0564Sz you have serious difficulty walking or climbing stairsNo 12/05/2024 11:04 AM EDT Estefany Rashid RN NoCuniversity hospitals cleveland medical centerdre Fmjkdw72-46-5377Sk you have difficulty dressing or bathingNo 12/05/2024 11:04 AM EDT Estefany Rashid RN NoCGreene Memorial HospitalZtohox58-21-5671Opqqrbl of a physical, mental, or emotional condition, do you have difficulty doing errands alone such as visiting a physician's office or shoppingNo 12/05/2024 11:04 AM EDT Estefany Rashid RN No [facility] HospitalPcabza81-37-6919Cufdk score [AUDIT-C]-1 08/03/2023 5:56 PM EDT Yesika TerrellLafayette Regional Health CenterRnkvzcefsp40-94-8433Cvjdpgtwpy statusPatient declined 08/03/2023 5:56 PM EDT Xander Generic Patient [facility] 94-61-2369Agq you deaf, or do you have serious difficulty hearingNo 03/19/2021 5:23 PM [place] Salvador RN NoCGreene Memorial HospitalHqtfuc08-83-1735Svt you blind, or do you have serious difficulty seeing, even when wearing glassesNo 03/19/2021 5:23 PM [place] Salvador RN NoCGreene Memorial HospitalFlbxpf20-79-2990Fn you have serious difficulty walking or climbing stairsNo 03/19/2021 5:23 PM [place] Salvador RN NoCGreene Memorial HospitalHxnfvy66-71-2624Ud you have difficulty dressing or bathingNo 03/19/2021 5:23 PM [place] Salvador RN NoCGreene Memorial HospitalAvkzjc27-72-3432Ijaxkil of a physical, mental, or emotional condition, do you have difficulty doing errands alone such as visiting a physician's office or shoppingNo 03/19/2021 5:23 PM [place] Salvador RN [facility] Mental Status FwfqDbhokrwcveOohhgdBrrttgso72-18-0924Hawqoqi of a physical, mental, or emotional condition, do you have serious difficulty concentrating, remembering, or making decisionsNo 12/05/2024 11:04 AM EDT Estefany Rashid RN [facility] CenterXzzfgc57-76-9223Qzhbnqk of a physical, mental, or emotional condition, do you have serious difficulty concentrating, remembering, or making decisionsNo 03/19/2021 5:23 PM [place] Salvador RN [facility] Clinical Notes 06-23-2021 to 01-07-2025 Note Date & TleoSraxKhgzuihq59-64-8888 Evaluation note* Diagnosis Onset Date Resolution Status Admit Date Right knee pain acuteOctober 2024 10:56amAF (paroxysmal atrial fibrillation)acuteNovember 2024 8:56amEssential hypertension, benignacuteNovember 2024 8:56am Injury of meniscus of right kneeacuteNovember 2024 8:56amInternal derangement of right kneeacuteNovember 2024 8:56amOSA on CPAPacuteNovember 2024 8:56amType 2 diabetes mellitus with hyperglycemia, without long-term current useacuteNovember 2024 8:56am [facility] Work Phone: 1(738) 375-286509-03-2025 History and physical note* Tsering Saenz APRN.SENIOR GRAPHIC DESIGNER - 12/05/2024 7:17 AM EDT Images from the original note were not included. [facility] [place] Josi Apodaca Department of Cardiovascular Medicine SECTION OF CARDIAC PACING and ELECTROPHYSIOLOGY OUTPATIENT VISIT DATE December 05, 2024 OUTPATIENT VISIT TYPE ESTABLISHED PRIMARY CARE PHYSICIAN: Michael Spangler (Luis) [address] [place] [address] CHIEF COMPLAINT: Atrial fibrillation HISTORY OF PRESENT [...] 11/2020 and had a redo PVI as partof the MAP AF in 03/2021. He had [...] denies any chest pain, pressure, lightheadedness, dizziness, orsyncope. He describes his heart rate as feeling [...] Negative for: Weakness, Paralysis, Numbness, Tingling, Tremor, Nervousness,Depressed mood, Memory loss SKIN: Negative for: Rashes, Itching HEMATOLOGICAL/LYMPHATIC: Negative for: Easy bruising , Easy bleeding ENDOCRINE: Negative for: Heat or cold intolerance, Excessive sweating, Frequent urination, Frequentthirst PHYSICAL EXAMINATION: BP 143/89 Pulse (!) 150 Ht 180.3 cm (5' 11 ) Wt 110.2 kg (243 lb) BMI 33.89 kg/m General: Well appearing, in no acute distress, speaking in complete sentences. Neck: No jugular venous distention, no carotid bruits, carotids have a normal upstroke, no palpablethyromegaly. Lungs: Clear to auscultation bilaterally, no wheezing [...] 11/2020 and had a redo PVI as partof the MAP AF in 03/2021. He had [...] denies any chest pain, pressure, lightheadedness, dizziness, orsyncope. He describes his heart rate as feeling [...] 3 weeks. NPO since midnight, has a airport driver today - Proceed with cardioversion today. [...] to lower AF recurrence risk. Recording using [employer] software for draft documentation of the visit was discussed with the patient/authorized labor representative; all questions welcomed and answered. Patient/authorized labor representative agreed to proceed CONTACT INFORMATION: Tsering Saenz APRN.SENIOR GRAPHIC DESIGNER Dr. Jessica Winter 's office To schedule an appointment please call --[phone] Other questions or concerns please call his office at -- [phone] Fax#: [phone] [1] Social History Tobacco Use Smoking status: Former Current packs/day: 0.00 Types: Cigarettes Quit date: 2018 Years since quittin.6 Smokeless tobacco: Never Vaping Use Vaping status: Never Used Substance Use Topics Alcohol use: Yes Comment: rarely Drug use: Not Currently [facility]09-03-2025 History and physical note* Tsering Saenz APRN.CNP - 12/05/2024 7:17 AM EDT Images from the original note were not included. [facility]i Apodaca Department of Cardiovascular Medicine SECTION OF CARDIAC PACING and ELECTROPHYSIOLOGY OUTPATIENT VISIT DATE December 05, 2024 OUTPATIENT VISIT TYPE ESTABLISHED PRIMARY CARE PHYSICIAN: Michael Spangler (Luis) [address] [place] [address] CHIEF COMPLAINT: Atrial fibrillation HISTORY OF PRESENT [...] 11/2020 and had a redo PVI as partof the MAP AF in 03/2021. He had [...] denies any chest pain, pressure, lightheadedness, dizziness, orsyncope. He describes his heart rate as feeling [...] Negative for: Weakness, Paralysis, Numbness, Tingling, Tremor, Nervousness,Depressed mood, Memory loss SKIN: Negative for: Rashes, Itching HEMATOLOGICAL/LYMPHATIC: Negative for: Easy bruising , Easy bleeding ENDOCRINE: Negative for: Heat or cold intolerance, Excessive sweating, Frequent urination, Frequentthirst PHYSICAL EXAMINATION: BP 143/89 Pulse (!) 150 Ht 180.3 cm (5' 11 ) Wt 110.2 kg (243 lb) BMI 33.89 kg/m General: Well appearing, in no acute distress, speaking in complete sentences. Neck: No jugular venous distention, no carotid bruits, carotids have a normal upstroke, no palpablethyromegaly. Lungs: Clear to auscultation bilaterally, no wheezing [...] 11/2020 and had a redo PVI as partof the MAP AF in 03/2021. He had [...] denies any chest pain, pressure, lightheadedness, dizziness, orsyncope. He describes his heart rate as feeling [...] 3 weeks. NPO since midnight, has a airport driver today - Proceed with cardioversion today. [...] to lower AF recurrence risk. Recording using [employer] software for draft documentation of the visit was discussed with the patient/authorized labor representative; all questions welcomed and answered. Patient/authorized labor representative agreed to proceed CONTACT INFORMATION: HUSSAIN Copeland Dr. 's office To schedule an appointment please call --[phone] Other questions or concerns please call his office at -- [phone] Fax#: [phone] [1] Social History Tobacco Use Smoking status: Former Current packs/day: 0.00 Types: Cigarettes Quit date: 2018 Years since quittin.6 Smokeless tobacco: Never Vaping Use Vaping status: Never Used Substance Use Topics Alcohol use: Yes Comment: rarely Drug use: Not Currently documented in this encounterW[facility] NoteHNO ID: [id number] Author: PHYLLIS JAY RN Service: ? Author [...] discussed with Physician, nurse practitioner or Physician operations manager assistant upon discharge Instructions for transmitting EKG to Monitoring Center 3 month follow up instructions Contact number for information and questions Patient Evaluation: Verbalizes understanding Follow Up Plan: Follow up as directed by MD. Supplemental Material Given: Written Material Instructed By Phyllis Jay RN. In Department of CARDIOLOGY.[facility]09-02-2025 History of Present illness Narrative* Phyllis Jay RN - 12/04/2024 12:27 PM EDT THE FOLLOWING WAS EVALUATED Motivation To Learn: [...] Explanation of procedure Sedation level during procedure MD medication instructions from EP lab request Denies missing any doses of Eliquis in last 3 weeks Travel instructions/restrictions Scheduling information Possible same day discharge versus overnight hospital stay Check out time Family waiting area Physician contact with family after procedure Post Procedure Expectations reviewed: Inpatient hospital stay Post procedure antiarrhythmics and anticoagulation will be discussed with Physician, nurse practitioner or Physician operations manager assistant upon discharge Instructions for transmitting EKG to Monitoring Center 3 month follow up instructions Contact number for information and questions Patient Evaluation: Verbalizes understanding Follow Up Plan: Follow up as directed by MD. Supplemental Material Given: Written Material Instructed By Phyllis Jay RN. In Department of CARDIOLOGY. documented in this encounterW[facility]09-[facility]-2025 NoteEducation (EPSMN) ABBEY [id number]) 1960 M Date Time Provider Department 12/04/24 [...] daily. Encounter Status:Closed by PHYLLIS JAY on 12/04/24[facility]08-28-2025 Telephone encounter Note* Telephone Encounter - Haroon Barber RN - 11/29/2024 4:06 PM EDT EKG received confirming that patient remains in AF, has been scheduled for DCC on 12/05/24. Haroon Barber RN [facility]08-28-2025 Miscellaneous Notes* Telephone Encounter - Haroon Barber RN - 11/29/2024 4:06 PM EDT EKG received confirming that patient remains in AF, has been scheduled for DCC on 12/05/24. Haroon Barber RN * Telephone Encounter - Yara Sutton - 11/29/2024 12:19 PM EDT Images from the original note were not included. Received EKG. This has been uploaded into [employer] documented in this encounterWvumedicine [facility]08-28-2025 Telephone encounter Note * Telephone Encounter - Yara Sutton - 11/29/2024 12:19 PM EDT Images from the original note were not included. Received EKG. This has been uploaded into Epic [facility]08-27-2025 Telephone encounter Note* Telephone Encounter - Monica Daniel RN - 11/28/2024 3:48 PM EDT Pt noted to be scheduled for an EKG and OPD on 12/05/24. Arranging DCC for the same day. Monica Daniel RN [facility]08-27-2025 Miscellaneous Notes* Telephone Encounter - Monica Daniel RN - 11/28/2024 3:48 PM EDT Pt noted to be scheduled for an EKG and OPD on 12/05/24. Arranging DCC for the same day. Monica Daniel RN * Telephone Encounter - Monica Daniel RN - 11/28/2024 2:40 PM EDT Please schedule patient for an EKG and OPD and we will arrange for DCC the same day. Monica Daniel RN * Telephone Encounter - Monica Daniel RN - 11/28/2024 2:40 PM EDT ----- Message from Haroon King RN sent [...] 27, 2024 3:49 PM documented in this encounterWvumedicine [facility]08-27-2025 Telephone encounter Note * Telephone Encounter - Monica Daniel RN - 11/28/2024 2:40 PM EDT Please schedule patient for an EKG and OPD and we will arrange for DCC the same day. Monica Daniel RN [facility]08-27-2025 Telephone encounter Note* Telephone Encounter - Monica Daniel RN - 11/28/2024 2:40 PM EDT ----- Message from Haroon King RN sent [...] Barber RN November 27, 2024 3:49 PM [facility]08-25-2025 Telephone encounter Note* Telephone Encounter - Yara Sutton - 11/26/2024 3:06 PM EDT Images from the original note were not included. EKG has been sent to the office. Patient would like some guidance. This has been scanned into epic [facility]08-25-2025 Miscellaneous Notes* Telephone Encounter - Yara Sutton - 11/26/2024 3:06 PM EDT Images from the original note were not included. EKG has been sent to the office. Patient would like some guidance. This has been scanned into epic * Telephone Encounter - Yara Sutton - 11/26/2024 11:15 AM EDT Patients is calling. is back in AFib and would like to get an EKG done. Apt in Mar. Order faxed to [facility] at [phone] documented in this encounterWvumedicine [facility]08-25-2025 Telephone encounter Note * Telephone Encounter - Yara Sutton - 11/26/2024 11:15 AM EDT Patients is calling. is back in AFib and would like to get an EKG done. Apt in Mar. Order faxed to [facility] at [phone] [facility]06-02-2025 Telephone encounter Note* Telephone Encounter - Laan Lemon - 09/03/2024 2:12 PM EDT Call from patient's requesting Eliquis refill. Requested [...] Transferred her to scheduling office. Lana Magdaleno [facility]06-02-2025 Miscellaneous Notes* Telephone Encounter - Lana Lemon - 09/03/2024 2:12 PM EDT Call from patient's requesting Eliquis refill. Requested [...] scheduling office. Lana Magdaleno documented in this encounterWvumedicine [facility]05-06-2025 History of Present illness Narrative* Michael Spangler MD - 08/07/2024 3:39 PM EDTAssociated Problem(s): Type 2 diabetes mellitus with hyperglycemia, without long-term current use of insulin (CMS/HCC) Not checking BS and due for A1C. Stick to ADA diet and limit carbs. * Michael Spangler MD - 08/07/2024 3:38 PM EDTAssociated Problem(s): REAL on CPAP Sleeping well with CPAP and use nightly. The patient is benefiting from PAP therapy. * Michael Spangler MD - 08/07/2024 3:38 PM EDTAssociated Problem(s): Essential hypertension, benign (CMS/HCC) BP controlled and monitor PRN. * Michael Spangler MD - 08/07/2024 3:38 PM EDTAssociated Problem(s): AF (paroxysmal atrial fibrillation) ([facility]/HCC) In NSR and continue medication. Follow up with cardiology. * Michael Spangler MD - 08/07/2024 3:38 PM EDTAssociated Problem(s): Plantar fasciitis of right foot History and exam suggestive plantar fasciitis. Start prednisone x 5 days for inflammation and pain.Handout with stretches to patient and ice at end of day. Discussed importance of proper supportive shoes. If continue to have problems will need PT and x-ray. May need podiatry for injections. Continue meds as prescribed. If develop new or worsening symptoms contact office. * Michael Spangler MD - 08/07/2024 2:45 PM EDT Images from the original note were not included. Subjective Patient ID: Abbey oLwe is a 63 y.o. male who presents for Follow-up (6m f/up/Leg cramping), Foot Injury (Right foot pain, hard to walk), and Knee Pain (Bilateral knee pain). Follow up DM, HTN, afib, and REAL. Not checking BS away from office. Tries to eat well and stick to ADA diet. Denies signs of elevated BS such as polyuria, polyphagia or polydipsia. Taking ozempic andtolerating. Checking BP PRN and typically controlled. BP [...] heel. No change in activity or walking. Nottried OTC. 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 Case History: Dr. Cintron and YANELI PrettyC referred this patient for consultation as regards [...] He does not take any stimulant medications. [place] Sleepiness Scale: Current total score: 224, Previous total score: 24, and Baseline total score: 24 Quality of Life: Functional Outcomes of Sleep [...] 4. No TOTAL 40 FOSQ-10??? 2003, Susu CortesFabian Vinny FOSQ-10 - [place] FOSQ-10_[id number]-USori.docx PAP Data Downloaded from Patient's PAP Device [...] chest pain and palpitat (more content not included)...[facility]02-17-2025 Telephone encounter Note* Telephone Encounter - Haroon Barber RN - 05/21/2024 3:22 PM EST Returned call to patient's , inquired if [...] concerns at this time. Haroon Barber RN [facility]02-17-2025 Miscellaneous Notes* Telephone Encounter - Haroon Barber RN - 05/21/2024 3:22 PM EST Returned call to patient's , inquired if [...] concerns at this time. Haroon Barber RN * Telephone Encounter - Yara Sutton - 05/21/2024 2:33 PM EST May 21, 2024 Patient Contact Number: [phone] (home) [phone] (cell) Patient last seen within the last year No Reason For Call: Other Issue: Patients is calling. They will be traveling to [place] and was wondering if making such a long travel that Mr. Lowe should wear compression socks. Please call to advise. Yaar Sutton documented in this encounterWvumedicine [facility]02-17-2025 Telephone encounter Note * Telephone Encounter - Yara Sutton - 05/21/2024 2:33 PM EST May 21, 2024 Patient Contact Number: [phone] (home) [phone] (cell) Patient last seen within the last year No Reason For Call: Other Issue: Patients is calling. They will be traveling to [place] and was wondering if making such a long travel that Mr. Lowe should wear compression socks. Please call to advise. Yara Sutton [facility]11-11-2024 History of Present illness Narrative* Radha Bonilla DPM - 02/13/2024 8:30 AM EST Images from the original note were not [...] in the morning and 1 tablet before bedtime.,Disp: , Rfl: atorvastatin (Lipitor) 40 MG tablet, [...] followed by Betadine solution; until drainage and localizederythema effectively subside. Ibuprofen and/or Tylenol as needed [...] understanding. Radha Bonilla DPM documented in this [facility]11-11-2024 Instructions* Patient Instructions* Radha Bonilla DPM - 02/13/2024 8:30 AM EST As noted documented in this [facility]11-06-2024 History of Present illness Narrative* Michael Spangler MD - 02/08/2024 11:31 AM ESTAssociated Problem(s): Type 2 diabetes mellitus with hyperglycemia, without long-term current use of insulin ([facility]) Not checking BS and due for A1C. Stick to ADA diet and limit carbs. * Michael Spangler MD - 02/08/2024 11:30 AM ESTAssociated Problem(s): Gastroesophageal reflux disease without esophagitis Occasional symptoms and use OTC PRN. * Michael Spangler MD - 02/08/2024 11:30 AM ESTAssociated Problem(s): Essential hypertension, benign (CMS/HCC) BP controlled and monitor PRN. * Michael Spangler MD - 02/08/2024 11:30 AM ESTAssociated Problem(s): AF (paroxysmal atrial fibrillation) (CMS/HCC) In NSR and continue medication. Follow up with cardiology. * Michael Spangler MD - 02/08/2024 10:30 AM EST Images from the original note were not included. Subjective Patient ID: Abbey Lowe is a 63 y.o. male who presents for Follow-up (6m ). Follow up DM, HTN, afib, GERD, and REAL. Patient feels well today. Not checking BS away from office.Tries to eat well and stick to ADA diet. Denies signs of elevated BS such as polyuria, polyphagia or polydipsia. Taking ozempic and tolerating lower dose. Checking BP PRN and typically controlled. BPnormal today. Taking medication daily and tolerating without side effects. Afib stable. No palpitations or heart racing. Not lightheaded or dizzy. GERD controlled with OTC. Denies epigastric pain or burning and not waking up with symptoms. REAL controlled with CPAP. Using machine nightly for entire time asleep, typically 6- 8 hours. Sleeping well and not waking up as much during night. Rested in amand not as tired during day. Review of [...] Relevant Orders Hemoglobin A1c documented in this encounterLafayette Regional Health [id number] History of Present illness Narrative* Radha Bonilla DPM - 02/02/2024 3:30 PM EDT Images from the original note were not included. Subjective Patient ID: Abbey Lowe is a 63 y.o. male who presents for Procedure (Established pt presentstoday requesting total phenol matricectomy of the LGT.). [...] in the morning and 1 tablet before bedtime.,Disp: , Rfl: atorvastatin (Lipitor) 40 MG tablet, [...] provided: Remove dressing 24 hours. Cleanse once ortwice daily with warm soapy water and apply [...] of the left hallux for hemostasis. The dys trophic nail plate is bluntly freed from all [...] understanding. Radha Bonilla DPM documented in this [facility]10-31-2024 Instructions* Patient Instructions* Radha Bonilla DPM - 02/02/2024 3:30 PM EDT Post-procedure instructions as noted documented in this encounterLafayette Regional Health [id number] Telephone encounter Note* Telephone Encounter - Yara Sutton - 01/05/2024 7:53 AM EDT Call from patient requesting refill. Requested Prescriptions Pending Prescriptions Disp Refills metoprolol succinate ER (TOPROL XL) 25 mg 24 hr tablet [Pharmacy Med Name: METOPROLOL SUCC ER 25 MGTAB] 180 tablet 3 Sig: take 1 tablet by mouth twice a day Patient last seen 03/08/23 Yara Sutton [facility]10-03-2024 Miscellaneous Notes* Telephone Encounter - Yara Sutton - 01/05/2024 7:53 AM EDT Call from patient requesting refill. Requested Prescriptions Pending Prescriptions Disp Refills metoprolol succinate ER (TOPROL XL) 25 mg 24 hr tablet [Pharmacy Med Name: METOPROLOL SUCC ER 25 MGTAB] 180 tablet 3 Sig: take 1 tablet by mouth twice a day Patient last seen 03/08/23 Yara Sutton documented in this encounterWvumedicine [facility]05-06-2024 Telephone encounter Note * Telephone Encounter - Sue Tellez - 08/08/2023 7:22 AM EDT Electronic request for refill. Requested Prescriptions Pending Prescriptions Disp Refills ELIQUIS 5 mg tab(s) [Pharmacy Med Name: ELIQUIS 5 MG TABLET] 180 tablet 3 Sig: take 1 tablet by mouth twice a day Last office visit in was 03/08/2023 Sue Tellez [facility]05-06-2024 Miscellaneous Notes* Telephone Encounter - Sue Tellez - 08/08/2023 7:22 AM EDT Electronic request for refill. Requested Prescriptions Pending Prescriptions Disp Refills ELIQUIS 5 mg tab(s) [Pharmacy Med Name: ELIQUIS 5 MG TABLET] 180 tablet 3 Sig: take 1 tablet by mouth twice a day Last office visit in EP was 03/08/2023 Sue Tellez documented in this encounterWvumedicine [facility]12-05-2023 History of Present illness Narrative* Jessica Winter MD - 03/08/2023 9:58 AM EST Images from the original note were not included. [facility] Department of Cardiovascular Medicine SECTION OF CARDIAC PACING and ELECTROPHYSIOLOGY OUTPATIENT VISIT DATE March 08, 2023 OUTPATIENT VISIT TYPE ESTABLISHED PRIMARY CARE PHYSICIAN: Michael Spangler MD ([facility]) [address] [place] [address] REFERRING PHYSICIAN: No referring provider defined for [...] remains on Toprol and Eliquis. His last monitorin 2021 showed NSR with brief runs of [...] and confirmed the findings of the Physician Adobe Block Maker/Nurse Practitioner or fellow/resident above, with the addition [...] remains on Toprol and Eliquis. His last monitorin 2021 showed NSR with brief runs of an SVT. Infrequent ectopy. Continues to do very well with a very low burden of atrial fibrillation or atrial flutter. Continuecurrent management and follow-up in 2 years or sooner if needed. Jessica Winter MD I personally interviewed, confirmed and edited the above information as obtained by others. CONTACT INFORMATION: Jessica Winter MD documented in this encounterWvumedicine [facility]10-13-2023 Miscellaneous Notes* Telephone Encounter - Yara Sutton - 01/14/2023 11:56 AM EDT Call from patient requesting refill. Requested Prescriptions Pending Prescriptions Disp Refills metoprolol succinate ER (TOPROL XL) 25 mg 24 hr tablet 180 tablet 3 Sig: Take 1 tablet by mouth two times a day. Patient last seen 03/11/22 Yara Sutton documented in this encounterWvumedicine [facility]ville Hospital06-21-2023 NoteChief Complaint consultation for colonoscopy HPI Staff 62 [...] swallowing difficulties, no hearing loss, no ear infection(s),no nose bleeds. Cardiovascular: normal blood pressure, no [...] Mother. Heart disease: Fa (more content not included)...[facility] Comment on above:Result Comment: Electronically Signed By: BRIGETTE KNOWLES, Terrence Avendaño\Date and Time Signed: 09/22/22 20:37 [id number] History of Present illness Narrative* Leny Leon - 03/11/2022 10:10 AM EST Study Name: IRB 20-461 MAP AF PI: [...] locations: N/A Zio Patch monitor placed by Bread Oven Operator: Yes Informed patient that this was his final study visit and that he needs to continue his SOC treatments and visits per MD direction. He verbalized understanding. Auricular Detoxification Specialist: Leny Leon Pager #: [phone] documented in this encounterWvumedicine [facility]ville Hospital10-07-2022 Miscellaneous Notes* Telephone Encounter - Amee Caren [facility] - 01/08/2022 2:58 PM EDT Call from pharmacy requesting refill. 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 10/12/2021 17:16:00[facility] [place]06-23-2022 History of Present illness Narrative* Nighat EDGE - 09/24/2021 3:58 PM EDT EVENT MONITOR DISPOSABLE PATCH INSTRUCTIONS Patient Name: Abbey Lowe [facility] Number: [id number] Skin prepped and cleansed with alcohol Patch secured to prepped area Monitor Activated Serial #: [id number] Patient Instructed: 1.) Prescribed order timeframe 2.) Bathing guidelines 3.) Usage of event button and diary documentation 4.) Return of monitor at the end of prescribed order 5.) Call with problems [phone] or [phone]. [phone] Patient expresses a good understanding of instructions Nighat EDGE documented in this encounterWvumedicine Barnesville Hospital06-23-2022 History of Present illness Narrative* Jessica Winter MD - 09/24/2021 3:03 PM EDT Images from the original note were not included. [facility] Ap[facility] Department of Cardiovascular Medicine SECTION OF CARDIAC PACING and ELECTROPHYSIOLOGY OUTPATIENT VISIT DATE September 24, 2021 OUTPATIENT VISIT TYPE ESTABLISHED PRIMARY CARE PHYSICIAN: Michael Spangler MD ([facility]) [address] [place] [address] CHIEF COMPLAINT: AF HISTORY OF PRESENT ILLNESS/NURSING [...] stroke prophylaxis without bleeding complications. He has [id number] score of 1 for hypertension. EKG today: [...] and confirmed and edited the above information asobtained by others. PHYSICAL EXAMINATION: BP 143/77 Pulse [...] stroke prophylaxis without bleeding complications. He has [id number] score of 1 for hypertension. EKG today: Doing very well post ablation with no recurrence. Continue current medications and follow-up in 6 months or sooner if needed. I personally interviewed, confirmed and edited the above information as obtained by others. CONTACT INFORMATION: Jessica Winter MD documented in this encounter[facility] Miscellaneous Notes* Telephone Encounter - Sue Tellez - 09/21/2021 7:40 AM EDT Electronic request for refill. Pending Prescriptions Disp Refills ELIQUIS 5 MG TABLET 180 tablet 3 Sig: TAKE 1 TABLET BY MOUTH TWICE A DAY LENA: Yes Last office visit in was 06/23/2021 Sue Tellez documented in this encounterW[facility]04-07-[facility] Miscellaneous Notes* Telephone Encounter - Kristyn Pretty RN - 07/09/2021 3:49 PM EDT Mr. Lowe has two months' worth of Eliquis at home and may be able to discontinue after his f/u visit with Dr. Winter. He will discuss at his visit. Kristyn Pretty RN * Telephone Encounter - Amee Jacobsonpablito - 07/08/2021 11:25 AM EDT Mr. Lowe returned nurse call, asking to be contacted Amee Fabian [facility] [place] * Tele[facility] En[facility] - [facility] - 07/03/2021 3:28 PM EDT Images from the original note were not included. Full fax scanned into AOL drive. documented in this [facility]03-31-2022 Miscellaneous Notes* Telephone Encounter - Isidra De Jesus - 07/02/2021 8:42 AM EDT PA submitted via [employer]. Isidra De Jesus RN * Telephone Encounter - Lana Grigsby [facility] - 07/01/2021 1:45 PM EDT Images from the original note were not included. documented in this [facility]03-22-2022 History of Present illness Narrative* GIUSEPPE Garcia - 06/23/2021 11:32 AM EDT HOLTER MONITOR APPLICATION Patient Name: Abbey Lowe [facility] Number: [id number] Chest is cleansed with alcohol Skin prep [...] or 48 hours 6.) Call with problems [phone] OR [phone] Patient expresses good verbal understanding of instructions GIUSEPPE Garcia documented in this [facility]03-22-2022 History of Present illness Narrative* Mariah Cavazos PA-C - 06/23/2021 10:40 AM EDT Study Name: IRB [id number] [facility] PI: Dr. Shannon Dozier Study Visit: Follow [...] visits: No Zio Patch monitor placed by Bread Oven Operator: Yes Discussed with the patient the importance of follow up in the study and time of next required studyvisit. He verbalized understanding. The patient prefers 6- month follow up in person. Patient contact information reaffirmed and updated. Coordinator contact information provided to the patient. Education provided: Follow up requirements/schedule Materials dispensed: None Auricular Detoxification Specialist: Mariah Cavazos PA-C Pager #: [phone] documented in this encounterW[facility]03-22-2022 Nurse Note* Miri Cunha RN - 06/23/2021 10:40 AM EDT 1. How often on average, does your [...] activity): very little, Fatigue at rest: none, Lightheadedness /dizziness: none and Chest pain or pressure: none 4. Have you had an inpatient hospital admission within 30 days of your procedure? No Miri Cunha RN documented in this encounterW[facility]03-22-2022 History of Present illness Narrative* Jessica Winter MD - 06/23/2021 10:20 AM EDT Images from the original note were not included. [facility] Josi Apodaca Department of Cardiovascular Medicine SECTION OF CARDIAC PACING and ELECTROPHYSIOLOGY OUTPATIENT VISIT DATE June 23, 2021 OUTPATIENT VISIT TYPE ESTABLISHED PRIMARY CARE PHYSICIAN: Michael Spangler MD ([facility]) [address] [place] [address] CHIEF COMPLAINT: AF HISTORY OF PRESENT ILLNESS/NURSING [...] had a recurrence of atrial fibrillation in November2020 and underwent DCCV 11/07/20 which was successful. He had early recurrence of atrial fibrillationby 11/18/20 and underwent redo ablation 03/19/21. Per the report, at baseline the pulmonary veins were well isolated from the previous ablation. Mild electrical reconnections were noted in septal areatowards the roof and in the posterior wall which we targeted with ablation successfully. He is enrolled in the MAP AF study. He developed recurrent atrial fibrillation shortly after the ablation and underwent DCC 04/09/21. Hehas done well since that time with infrequent [...] and confirmed and edited the above information asobtained by others. PHYSICAL EXAMINATION: BP 128/76 Pulse [...] had a recurrence of atrial fibrillation in November2020 and underwent DCCV 11/07/20 which was successful. He had early recurrence of atrial fibrillationby 11/18/20 and underwent redo ablation 03/19/21. Per the report, at baseline the pulmonary veins were well isolated from the previous ablation. Mild electrical reconnections were noted in septal areatowards the roof and in the posterior wall which we targeted with ablation successfully. He is enrolled in the MAP AF study. He developed recurrent atrial fibrillation shortly after the ablation and underwent DCC 04/09/21. Hehas done well since that time with infrequent [...] off AAD Not applicable documented in this encounterWvumed[facility] HospitalEvaluation + Plan note No data available for this section General Surgery [place] Evaluation note* Diagnosis IRB MAP AF PI: Dr. Shannon Dozier- Primary [facility] [place] [facility]* Diagnosis Atrial fibrillation, persistent (HCC)- Primary Atrial fibrillation documented in this encounter [facility] note* Diagnosis Atrial fibrillation, persistent (HCC) Atrial fibrillation documented in this encounter [facility] note* Diagnosis Persistent atrial fibrillation (HCC)- Primary Atrial fibrillation IRB MAP AF PI: Dr. Shannon Dozier documented [facility] [place] [facility]* Diagnosis Atrial fibrillation, persistent (HCC)- Primary Atrial fibrillation [facility] [place] [facility]* Diagnosis Atrial fibrillation, persistent (HCC)- Primary Atrial fibrillation Obstructive sleep apnea syndrome Obstructive sleep apnea (adult) (pediatric) Left atrial thrombus Other ill-defined heart disease Ejection fraction < 50% Other symptoms involving cardiovascular system documented in this encounter [facility] note* Diagnosis Persistent atrial fibrillation (HCC)- Primary Atrial fibrillation IRB MAP AF PI: Dr. Shannon Dozier documented in this encounter [facility] note* Diagnosis IRB 46 MAP AF PI: Dr. Shannon Dozier- Primary documented in this encounter [facility] note* Diagnosis Persistent atrial fibrillation (HCC)- Primary Atrial fibrillation Primary hypertension Unspecified essential hypertension documented in this encounter [facility] note* Diagnosis Type 2 diabetes mellitus with [...] Difficulty in walking [facility] Diagnosis Type 2 diabetes mellitus with [...] esophagitis Esophageal reflux documented in this encounter [facility]* Diagnosis Type 2 diabetes [...] Dermatophytosis of nail documented in this encounter [facility]* Diagnosis Type 2 diabetes [...] health care facility documented in this encounter [facility]* Diagnosis Persistent atrial fibrillation (HCC)- Primary Atrial fibrillation documented in [facility] [place] [facility]* Diagnosis Persistent atrial fibrillation (HCC)- Primary Atrial fibrillation documented [facility] [place] [facility]* Diagnosis Persistent atrial fibrillation (HCC)- Primary Atrial fibrillation documented in [facility] [place] [facility]* Diagnosis Persistent atrial fibrillation (HCC)- Primary Atrial fibrillation Primary hypertension Unspecified essential hypertension Chronic anticoagulation Long-term (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 Obstructive sleep apnea syndrome Obstructive sleep apnea (adult) (pediatric) Pre-diabetes Other abnormal glucose documented in this [facility] [place] [facility]* Diagnosis Onset Date Resolution Status Admit Date Right knee pain acuteOctober 2024 10:56am [facility] Work Phone: Hospital Discharge instructions No data available for this section General Surgery [place] Progress note No data available for this section General Surgery [place] Reason for referral (narrative)* Outpatient Procedure (Routine) - Pending ReviewSpecialtyDiagnoses / ProceduresReferred By Contact [facility]erred [facility]ULAR [facility] Diagnoses Atrial fibrillation, persistent (HCC) Procedures ECHO ECHO TTHRC R-T 2D W/WOM-MODE COMPL SPEC&COLR D Jessica Winter MD [address] [place] [address] [facility] [place] [address] Referral IDStatusReasonStart DateExpiration DateVisits RequestedVisits [id number] Review Auto-Generated Referral [facility] for referral (narrative)* Outpatient Procedure (Routine) - AuthorizedSpecialtyDiagnoses / ProceduresReferred By ContactReferred To [facility] Diagnoses Persistent atrial fibrillation (HCC) Research study patient Procedures ECG COMPLETE ECG ROUTINE ECG W/LEAST 12 LDS W/I&R Jessica Winter MD [address] [place] [place] [id number] [facility] [address] [place] [address] Referral IDStatusReasonStart DateExpiration DateVisits RequestedVisits [id number] Auto-Generated Referral [facility] for referral (narrative)* Outpatient Procedure (Routine) - AuthorizedSpecialtyDiagnoses / ProceduresReferred By ContactReferred To [facility] Diagnoses Persistent atrial fibrillation (HCC) Research study patient Procedures ECG COMPLETE ECG ROUTINE ECG W/LEAST 12 LDS W/I&R Jessica Winter MD [address] [id number] [place] [id number] Referral IDStatusReasonStart DateExpiration DateVisits RequestedVisits [id number] Auto-Generated Referral / [facility] for referral (narrative)* Transition of Care (Routine) - AuthorizedSpecialtyDiagnoses / ProceduresReferred By ContactReferred To [facility] Tsering Saenz APRN.CNP [address] [place] [address] Phone: tel: fax: [facility] [address] [place] [address] Referral IDStatusReasonStart DateExpiration DateVisits RequestedVisits [id number] PCP Requested Referral / [facility] Summary Purpose Family History No Family History Records FoundNo Family History Records FoundNo Family History Records FoundNo Family History Records FoundNo Family History Records FoundNo Family History Records Found Advance Directives TypeDate RecordedPatient RepresentativeExplanationAdvance Directive(s)01/14/2021 9:41 AMAdvance Directive(s)01/13/2021 9:43 AMAdvance Directive(s)11/06/2020 9:05 AMAdvance Directive(s)11/13/2018 5:12 AMAdvance Directive(s)10/27/2018 12:26 PM Advance Directive(s)08/14/2018 10:04 AMAdvance Directive(s)07/31/2018 11:29 AMType Date RecordedPatient RepresentativeExplanationAdvance Directive(s)01/14/2021 9:41 AMAdvance Directive(s)01/13/2021 9:43 AMAdvance Directive(s)11/06/2020 9:05 AMAdvance Directive(s)11/13/2018 5:12 AMAdvance Directive(s)10/27/2018 12:26 PM Advance Directive(s)08/14/2018 10:04 AMAdvance Directive(s)07/31/2018 11:29 AM Advance Directive Response Recorded Date/ Time Advance Directives No December 11:52am Advance Directive Response Recorded Date/ Time Advance Directives No December 10:52am Reason for Referral SpecialtyDiagnoses / ProceduresReferred By ContactReferred To Contact Procedures CARDIOVASCULAR MEDICINE OP FOLLOW UP APPT ORDER Jessica Winter MD [address] [place] [address] Referral IDStatusReasonStart DateExpiration DateVisits RequestedVisits [id number] Not Required PCP Requested Referral / Chief Complaint and Reason for Visit Chief Complaint Admit Date right knee pain January 07, 2025 10 :56am Reason for Visit Admit Date Right knee pain January 07, 2025 10 :56am Chief Complaint Admit Date right knee pain January 07, 2025 10 :56am Estab February 08, 2025 8 :56am Reason for Visit Admit Date Right knee pain January 07, 2025 10 :56am AF (paroxysmal atrial fibrillation) Antoinette marylu 2024 8:56am Essential hypertension, benign February 08, 2025 8:56am Injury of meniscus of right knee Novembe r 2024 8:56am Internal derangement of right knee Novem malcom 2024 8:56am REAL on CPAP February 08, 2025 8 :56am Type 2 diabetes mellitus wit h hyperglycemia, without long-term current use February 08, 2025 8:56am Additional Source Comments (unrecognized sect ion and content) No Status Records FoundNo Status Records FoundNo Status Records FoundNo Status Records FoundNo Status Records FoundNo Status Records Found INFORMATION SOURCE (unrecogn ized section and content) DATE CREATED AUTHOR 04/27/2019 [facility] DATE CREATED AUTHOR AUTHOR'S ORGANIZ ATION 02/20/2022 [facility] DATE CREATED AUTHOR AUTHOR'S ORGANIZ ATION 11/18/2022 [facility] DATE CREATED AUTHOR AUTHOR'S ORGANIZ ATION 06/01/2024 [facility] DATE CREATED AUTHOR AUTHOR'S ORGANIZ ATION 08/10/2024 [facility] DATE CREATED AUTHOR AUTHOR'S ORGANIZ ATION 02/03/2025 [facility] Source Comments (unrecognize d section and content) In the event this informatio n is protected by the Federal Confidentiality of Alcohol and Drug Abuse Patient Records regulations: The Federal rules restrict any use of the information to criminally investigate or prosecute any alcohol or drug abuse patient.[facility] HospitalIn the event this information is protected by the Federal Confidentiality of Alcohol and Drug Abuse Patient Records regulations: The Federal rules restrict any use of the information to criminally investigate or prosecute any alcohol or drug abuse patient.[facility] HospitalIn the event this information is protected by the Federal Confidentiality of Alcohol and Drug Abuse Patient Records regulations: The Federal rules restrict any use of the information to criminally investigate or prosecute any alcohol or drug abuse patient.[facility] HospitalIn the event this information is protected by the Federal Confidentiality of Alcohol and Drug Abuse Patient Records regulations: The Federal rules restrict any use of the information to criminally investigate or prosecute any alcohol or drug abuse patient.[facility] HospitalIn the event this information is protected by the Federal Confidentiality of Alcohol and Drug Abuse Patient Records regulations: The Federal rules restrict any use of the information to criminally investigate or prosecute any alcohol or drug abuse patient.[facility] HospitalIn the event this information is protected by the Federal Confidentiality of Alcohol and Drug Abuse Patient Records regulations: The Federal rules restrict any use of the information to criminally investigate or prosecute any alcohol or drug abuse patient.[facility] HospitalIn the event this information is protected by the Federal Confidentiality of Alcohol and Drug Abuse Patient Records regulations: The Federal rules restrict any use of the information to criminally investigate or prosecute any alcohol or drug abuse patient.[facility] HospitalIn the event this information is protected by the Federal Confidentiality of Alcohol and Drug Abuse Patient Records regulations: The Federal rules restrict any use of the information to criminally investigate or prosecute any alcohol or drug abuse patient.[facility] HospitalIn the event this information is protected by the Federal Confidentiality of Alcohol and Drug Abuse Patient Records regulations: The Federal rules restrict any use of the information to criminally investigate or prosecute any alcohol or drug abuse patient.[facility] HospitalIn the event this information is protected by the Federal Confidentiality of Alcohol and Drug Abuse Patient Records regulations: The Federal rules restrict any use of the information to criminally investigate or prosecute any alcohol or drug abuse patient.[facility] HospitalIn the event this information is protected by the Federal Confidentiality of Alcohol and Drug Abuse Patient Records regulations: The Federal rules restrict any use of the information to criminally investigate or prosecute any alcohol or drug abuse patient.[facility] HospitalIn the event this information is protected by the Federal Confidentiality of Alcohol and Drug Abuse Patient Records regulations: The Federal rules restrict any use of the information to criminally investigate or prosecute any alcohol or drug abuse patient.[facility] HospitalIn the event this information is protected by the Federal Confidentiality of Alcohol and Drug Abuse Patient Records regulations: The Federal rules restrict any use of the information to criminally investigate or prosecute any alcohol or drug abuse patient.[facility] HospitalIn the event this information is protected by the Federal Confidentiality of Alcohol and Drug Abuse Patient Records regulations: The Federal rules restrict any use of the information to criminally investigate or prosecute any alcohol or drug abuse patient.[facility] HospitalIn the event this information is protected by the Federal Confidentiality of Alcohol and Drug Abuse Patient Records regulations: The Federal rules restrict any use of the information to criminally investigate or prosecute any alcohol or drug abuse patient.[facility] HospitalIn the event this information is protected by the Federal Confidentiality of Alcohol and Drug Abuse Patient Records regulations: The Federal rules restrict any use of the information to criminally investigate or prosecute any alcohol or drug abuse patient.[facility] HospitalIn the event this information is protected by the Federal Confidentiality of Alcohol and Drug Abuse Patient Records regulations: The Federal rules restrict any use of the information to criminally investigate or prosecute any alcohol or drug abuse patient.[facility] HospitalIn the event this information is protected by the Federal Confidentiality of Alcohol and Drug Abuse Patient Records regulations: The Federal rules restrict any use of the information to criminally investigate or prosecute any alcohol or drug abuse patient.[facility] HospitalIn the event this information is protected by the Federal Confidentiality of Alcohol and Drug Abuse Patient Records regulations: The Federal rules restrict any use of the information to criminally investigate or prosecute any alcohol or drug abuse patient.[facility] HospitalIn the event this information is protected by the Federal Confidentiality of Alcohol and Drug Abuse Patient Records regulations: The Federal rules restrict any use of the information to criminally investigate or prosecute any alcohol or drug abuse patient.[facility] HospitalIn the event this information is protected by the Federal Confidentiality of Alcohol and Drug Abuse Patient Records regulations: The Federal rules restrict any use of the information to criminally investigate or prosecute any alcohol or drug abuse patient.[facility] HospitalIn the event this information is protected by the Federal Confidentiality of Alcohol and Drug Abuse Patient Records regulations: The Federal rules restrict any use of the information to criminally investigate or prosecute any alcohol or drug abuse patient.[facility] HospitalIn the event this information is protected by the Federal Confidentiality of Alcohol and Drug Abuse Patient Records regulations: The Federal rules restrict any use of the information to criminally investigate or prosecute any alcohol or drug abuse patient.[facility] HospitalIn the event this information is protected by the Federal Confidentiality of Alcohol and Drug Abuse Patient Records regulations: The Federal rules restrict any use of the information to criminally investigate or prosecute any alcohol or drug abuse patient.[facility] HospitalIn the event this information is protected by the Federal Confidentiality of Alcohol and Drug Abuse Patient Records regulations: The Federal rules restrict any use of the information to criminally investigate or prosecute any alcohol or drug abuse patient.[facility] HospitalIn the event this information is protected by the Federal Confidentiality of Alcohol and Drug Abuse Patient Records regulations: The Federal rules restrict any use of the information to criminally investigate or prosecute any alcohol or drug abuse patient.[facility] HospitalIn the event this information is protected by the Federal Confidentiality of Alcohol and Drug Abuse Patient Records regulations: The Federal rules restrict any use of the information to criminally investigate or prosecute any alcohol or drug abuse patient.[facility] Reason for Visit (unrecogniz ed section and content) ReasonCommentsResearchIRB 94 MAP AFReasonCommentsHolter Monitor Application 24ReasonCommentsPrior Auth from Cover My MedsReasonCommentsMedication Problem Prior auth denialReasonCommentsRefill RequestReasonCommentsEventzioReason CommentsResearch F/UIRB 40 MAP AF PI: Dr. Shannon DozierReasonComments ProcedureEstablished pt presents today requesting total phenol matricectomy of the LGT.ZhkdxgAjafepwbFzlwzg-sv1xNsbpfdOmdgmuteEcxq-naZhpyiudhovd pt presents today for 10-14 day fuv for total phenol matricectomy, LGT.ReasonCommentsPatient QuestionReasonCommentsFollow-up6m f/upLeg crampingFoot InjuryRight foot pain, hard to walkKnee PainBilateral knee painReasonOnset DateCommentsRefill Request 09/03/2024EliquisReasonCommentsPatient UpdateBack in AFibReasonComments AppointmentCardioversionReasonCommentsReceived Outside Medical RecordsEKGReason CommentsPatient EducationEPS- [facility] Care Teams (unrecognized sec tion and content) Team MemberRelationshipSpecialtyStart DateEnd Date Michael Spangler [address] [place] [address] PCP - GeneralFamily Practice07/18/18 Donavon Morales [address] [place] [address] ReferringCardiology07/06/18Team MemberRelationshipSpecialtyStart DateEnd Date Michael Spangler [address] [place] [address] PCP - GeneralFamily Practice07/18/18 Dnoavon Morales [address] [place] [address] ReferringCardiology07/06/18Team MemberRelationshipSpecialtyStart DateEnd Date Michael Spangler [address] [place] [address] PCP - GeneralFamily Practice07/18/18 Donavon Morales [address] [place] [address] ReferringCardiology07/06/18Team MemberRelationshipSpecialtyStart DateEnd Date Michael Spangler [address] [place] [address] PCP - GeneralFamily Practice07/18/18 Carmen Donavon Pickard [address] [place] [address] ReferringCardiology07/06/18Team MemberRelationshipSpecialtyStart DateEnd Date Michael Spangler [address] [place] [address] PCP - GeneralFamily Practice07/18/18 Donavon Morales [address] [place] [address] ReferringCardiology07/06/18Team MemberRelationshipSpecialtyStart DateEnd Date DanyelMichael nunes [address] [place] [address] PCP - GeneralFamily Practice07/18/18 Donavon Morales [address] [place] [address] ReferringCardiology07/06/18Team MemberRelationshipSpecialtyStart DateEnd Date Elian Michael Colt [address] [place] [address] PCP - GeneralFamily Practice07/18/18 Donavon Morales [address] [place] [address] ReferringCardiology07/06/18Team MemberRelationshipSpecialtyStart DateEnd Date Keeleylinda Michael Gregory [address] [place] [address] PCP - GeneralFamily Practice07/18/18 Donavon Morales [address] [place] [address] ReferringCardiology07/06/18Team MemberRelationshipSpecialtyStart DateEnd Date Michael Spangler [address] [place] [address] PCP - GeneralFamily Practice07/18/18 CarmenJossekenyon Pickard [address] [place] [address] ReferringCardiology07/06/18Team MemberRelationshipSpecialtyStart DateEnd Date Michael Spangler [address] [place] [address] PCP - GeneralFamily Practice07/18/18 Donavon Morales [address] [place] [address] ReferringCardiology07/06/18Team MemberRelationshipSpecialtyStart DateEnd Date Elian Michael Colt [address] [place] [address] PCP - GeneralFamily Medicine07/18/18 Carmen Donavon Pickard [address] [place] [address] ReferringCardiology07/06/18Team MemberRelationshipSpecialtyStart DateEnd Date Elian Michael Gregory [address] [place] [address] PCP - GeneralFamily Medicine07/18/18 CarmenJoseskenyon Pickard [address] [place] [address] ReferringCardiology07/06/18Team MemberRelationshipSpecialtyStart DateEnd Date Michael Spangler [address] [place] [address] PCP - GeneralFamily Medicine07/18/18 Donavon Morales MD [address] [place] [address] ReferringCardiology07/06/18Team MemberRelationshipSpecialtyStart DateEnd Date Michael Spangler [address] [place] [address] PCP - GeneralFamily Medicine07/18/18 Donavon Morales MD [address] [place] [address] ReferringCardiology07/06/18Team MemberRelationshipSpecialtyStart DateEnd Date Michael Spangler [address] [place] [address] PCP - GeneralFamily Medicine07/18/18 Donavon Morales MD [address] [place] [address] ReferringCardiology07/06/18Team MemberRelationshipSpecialtyStart DateEnd Date Michael Spangler [address] [place] [address] PCP - GeneralFamily Medicine07/18/18 Donavon Morales MD [address] [place] [address] ReferringCardiology07/06/18Team MemberRelationshipSpecialtyStart DateEnd Date Michael Spangler [address] [place] [address] PCP - GeneralFamily Medicine07/18/18 Donavon Morales MD [address] [place] [address] ReferringCardiology07/06/18Team MemberRelationshipSpecialtyStart DateEnd Date Michael Spangler MD [address] [place] [address] PCP - [facility] [employer]04/04/23 Michael Spangler MD [address] [place] [address] PCP - GeneralFamily Medicine08/10/23Team MemberRelationshipSpecialtyStart DateEnd Date Michael Spangler MD [address] [place] [address] PCP - [facility] [employer]04/04/23 Michael Spangler MD [address] [place] [address] PCP - GeneralFamily Medicine08/10/23Team MemberRelationshipSpecialtyStart DateEnd Date Michael Spangler MD [address] [place] [address] PCP - [facility] [employer]04/04/23 Michael Spangler MD [address] [place] [address] PCP - GeneralFamily Medicine08/10/23Team MemberRelationshipSpecialtyStart DateEnd Date Michael Spangler MD [address] [place] [address] PCP - [facility] [employer]04/04/23 Michael Spangler MD [address] [place] [address] PCP - GeneralFamily Medicine08/10/23Team MemberRelationshipSpecialtyStart DateEnd Date Michael Spangler MD [address] [place] [address] PCP - [facility] [employer]04/04/23 Michael Spangler MD [address] [place] [address] PCP - GeneralFamily Medicine08/10/23Team MemberRelationshipSpecialtyStart DateEnd Date Michael Spangler MD [address] [place] [address] PCP - [facility] [employer]04/04/23 Michael Spangler MD [address] [place] [address] PCP - GeneralFamily Medicine08/10/23Team MemberRelationshipSpecialtyStart DateEnd Date Michael Spangler MD [address] [place] [address] PCP - [facility] [employer]04/04/23 Michael Spangler MD [address] [place] [address] PCP - GeneralFamily Medicine08/10/23Team MemberRelationshipSpecialtyStart DateEnd Date Mihcael Spangler MD [address] [place] [address] PCP - GeneralFamily Medicine07/18/18 Donavon Morales MD [address] [place] [address] ReferringCardiology07/06/18Team MemberRelationshipSpecialtyStart DateEnd Date Michael Spangler MD [address] [place] [address] PCP - [employer]04/04/23 Michael Spangler MD [address] [place] [address] PCP - GeneralFamily Medicine08/10/23Team MemberRelationshipSpecialtyStart DateEnd Date Michael Spangler MD [address] [place] [address] PCP - [employer]04/04/23 Michael Spangler MD [address] [place] [address] PCP - GeneralFamily Medicine08/10/23Team MemberRelationshipSpecialtyStart DateEnd Date Michael Spangler MD [address] [place] [address] PCP - [employer]04/04/23 Michael Spangler MD [address] [place] [address] PCP - GeneralFamily Medicine08/10/23Team MemberRelationshipSpecialtyStart DateEnd Date Michael Spanglre MD [address] [place] [address] PCP - GeneralFamily Medicine07/18/18 Donavon Morales MD [address] [place] [address] ReferringCardiology07/06/18Team MemberRelationshipSpecialtyStart DateEnd Date Michael Spangler MD [address] [place] [address] PCP - GeneralFamily Medicine07/18/18 Donavon Morales MD [address] [place] [address] ReferringCardiology07/06/18Team MemberRelationshipSpecialtyStart DateEnd Date Michael Spangler MD [address] [place] [address] PCP - GeneralFamily Medicine07/18/18 Donavon Morales MD [address] [place] [address] ReferringCardiology07/06/18Team MemberRelationshipSpecialtyStart DateEnd Date Michael Spangler MD [address] [place] [address] [facility]18 Donavon Morales MD [address] [place] [address] ReferringCardiology07/06/18 Jessica Winter MD [address] [place] [address] Cardiology11/26/24Team MemberRelationshipSpecialtyStart DateEnd Date Michael Spangler MD [address] [place] [address] PCP - [employer]04/04/23 Michael Spangler MD [address] [place] [address] PCP - [facility]08/10/23Team MemberRelationshipSpecialtyStart DateEnd Date Michael Spangler MD [address] [place] [address] PCP - GeneralFamily Medicine07/18/18 Donavon Morales MD [address] [place] [address] ReferringCardiology07/06/18 Jessica Winter MD [address] [place], [place] [id number] Cardiology11/26/24Team MemberRelationshipSpecialtyStart DateEnd Date Michael Spangler MD [address] [place] [address] [facility]/18/18 Donavon Morales MD [address] [place] [address] ReferringCardiology07/06/18 Jessica Winter MD [address] [place] [address] Cardiology11/26/24Team MemberRelationshipSpecialtyStart DateEnd Date Michael Spangler MD [address] [place] [address] [facility]/18/18 Donavon Morales MD [address] [place] [address] ReferringCardiology07/06/18 Jessica Winter MD [address] [place] [address] Cardiology11/26/24Team MemberRelationshipSpecialtyStart DateEnd Date Michael Spangler MD [address] [place] [address] [facility]/18/18 Donavon Morales MD [address] [place] [address] ReferringCardiology07/06/18 Jessica Winter MD [address] [place] [address] Cardiology11/26/24 Jessica Winter MD [address] [place], [place] [address] Primary Staff PhysicianCardiology12/05/24 Team Status: Active Member Role Status Dates Michael Spangler MD Primary Care Provider Active Team Status: Active Member Role Status Dates Michael Spangler MD Primary Care Provider Active S tart: December 05, 2024 Nina Quach ProviderActiveStart: December 05, 2024 Team Status: Inactive Member Role Status Dates Michael Spangler MD Primary Care Provider Active S tart: January 07, 2025 End: January 07, 2025Mar Nina Spangler ProviderActiveStart: January 07, 2025 End: January 07, 2025Team MemberRelationshipSpecialtyStart DateEnd Date Michael Spangler MD PCP - [facility] Oyjnenxu28/1/235 Michael Spangler MD [address] [place] [address] [facility] Michael Spangler MD [address] [place] [address] PCP - [facility] Medicine08/10/23 Team Status: Active Member Role/Relationship Status Dates Michael Spangler MD Primary Care Provider Active Team Status: Active Member Role/Relationship Status Dates Michael Spangler MD Primary Care Provider Active S tart: December 05, 2024 Nina Quach ProviderActiveStart: December 05, 2024 Team Status: Inactive Member Role/Relationship Status Dates Michael Spangler MD Primary Care Provider Active S tart: January 07, 2025 End: January 07, 2025[facility] Danyelosmanilinda ROYALlydia ProviderActiveStart: January 07, 2025 End: January 07, 2025 Team Status: Inactive Member Role/Relationship Status Dates Michael Spangler MD Primary Care Provider Active S tart: February 08, 2025 End: February 08, 2025[facility] ROYAL Spanglerlydia ProviderActiveStart: February 08, 2025 End: February 08, 2025 Goals (unrecognized section and content) Goals may be documented in a n alternate section FOR RECORDS PERTAINING TO PATIENTS WHO ARE [...] BE BASED ON THE PRIMARY CLINICAL RECORDS. [facility]. provides no warranty or guarantee of the accuracy or completeness of information in this document.
--- OUTSIDE RECORDS SUMMARY | 2025-03-01 08:11 | XMS_ITS | Clinical Summary ---
Author Organization [facility] Address [address] [place] [address] Care Team Providers Care Personnel Placement Specialist Name Role Phone Tom Bustillos MD Unavailable [phone] Michael Plummer MD Primary Care Provider [phone] Jessica Winter MD Unavailable [phone] Allergies Active AllergyReactionsCriticalityNoted CsjzAadkgnumZxzgbkhtwuxKifgt34/31/2023 Medications MedicationSigDispense QuantityRefillsLast FilledStart DateEnd DateStatus apixaban (Eliquis) 5 mg tablet Take 1 tablet by mouth in the morning and at bedtime.09/21/2021ctive cholecalciferol (Vitamin D-3) 50 MCG (1999) tablet Take 2,000 Units by mouth in the morning.Active lisinopril 20 mg tablet Take 20 mg by mouth in the morning and 20 mg in the evening.Active metFORMIN (Glucophage) 500 mg tablet Take 500 mg by mouth.Active metoprolol succinate XL (Toprol-XL) 25 mg 24 hr tablet Take 1 tablet by mouth in the morning and at bedtime.2Active atorvastatin (Lipitor) 40 mg tablet take 1 tablet by mouth everyday at bedtimeActive Ozempic 0.25 mg or 0.5 mg (2 mg/3 mL) pen injector 5Active Active Problems ProblemNoted DateDiagnosed DateResearch study csjpemu4503/18/2021Obstructive sleep apnea Overview (05/27/2022): AHI=56.5 events/hour; Elan SaO2=79.0%; Mlfqzi=141.9 lbs; BMI=34.7 kg/m2, on 03/05/2018 at [facility] Left atrial etrghars85/01/2018 Overview (05/04/2022): per echo Atrial xtbdfjfkxeyn92/20/2018 Overview (05/04/2022): Baseline ECG: AF, QTc 440, iRBBB (QRSd 94) CrCl: 90 08/14/2018 - started Tikosyn 500 mcg 08/16/2018 - successful cardioversion to NSR Discharge on Tikosyn 500 mcg Q12 Renal bjflysnjvk17/20/2018 Immunizations ImmunizationAdministration DatesNext DueCovid (Pfizer) Bivalent Booster =>12 YRS 02/06/2022Tdap07/06/2010Unspecified Sars-Cov-2 Swmiysjauyt13/18/2022,07/09/2020, 06/18/2020 Family History Medical HistoryRelationNameCommentsCOPDBrotherDiabetesBrotherDiabetesFatherHeart diseaseFatherHypothyroidismFatherHeart diseaseMotherRelationNameStatusComments BrotherFatherDeceasedMotherDeceased Social History Tobacco UseTypesPacks/DayYears UsedDateSmoking Tobacco: FormerCigarettesQuit: 01/30/2018Passive Smoke Exposure: PastSmokeless Tobacco: NeverAlcohol Use Standard Drinks/WeekCommentsYes0 (1 standard drink = 0.6 oz pure alcohol)[place] Safety & EnvironmentAnswerDate RecordedFear of Current or Ex-PartnerNot on file 05/26/2023Emotionally AbusedNot on file05/26/2023hysically AbusedNot on file 05/26/2023Sexually AbusedNot on file05/26/2023hysically or Sexually AbusedNot on file05/26/2023Sex and Gender InformationValueDate RecordedSex Assigned at BirthNot on fileLegal OjoBfph3609/30/2021 9:47 PM EDTGender IdentityNot on file Sexual OrientationNot on file Last Filed Vital Signs Vital SignReadingTime TakenCommentsBlood Rfovnqas974/60005/30/2024 10:01 AM EST Gujds911905/30/2024 10:01 AM ESTTemperature--Respiratory Iepj366905/30/2023 9:42 AM ESTOxygen Iyjpczvcze48%05/30/2024 10:01 AM ESTInhaled Oxygen Concentration-- Rpybqo198 kg (250 lb)05/30/2024 10:01 AM BOEHycmcz532.3 cm (5' 11 )05/30/2024 10:01 AM ESTBody Mass Index34.8705/30/2024 10:01 AM EST Plan of Treatment DateTypeDepartmentCare Team (Latest Contact Info)Pkiyaylafnn21/26/2026 2:15 PM ESTFollow-Up [facility] [address] [place] [address] Tom Bustillos MD [address] [facility] [address] [facility] [place] [address] Health MaintenanceDue DateLast DoneCommentsCT Mngbqepplhec71/05/1962Colonoscopy 2Diabetes: Hemoglobin A1C1961FIT-DNA1961FOBT1961 Nguacjtqucmlj75/05/1962Diabetes: Retinopathy Xtwlsjuih96/05/1972Depression Jzchvmpqa20/05/1974Diabetes: Urine Protein Zgavpbxcn29/05/1981Zoster Vaccines (1 of 2)09/07/2011dult Azlqawp26/07/2010Colorectal Cancer Screening 08/19/2021FIT/OVID-19 Vaccine ( season)2024 02/06/2022, 07/20/2021, 07/20/2021, Additional history existsInfluenza Vaccine (#1)12/03/2024HIB VaccinesAged OutNo longer eligible based on patient's age to complete this topicHPV VaccinesAged OutNo longer eligible based on patient's age to complete this topicIPV VaccinesAged OutNo longer eligible based on patient's age to complete this topicMeningococcal B VaccineAged OutNo longer eligible based on patient's age to complete this topicMeningococcal VaccineAged OutNo longer eligible based on patient's age to complete this topicPneumococcal Vaccine: Pediatrics (0 to 5 Years) and At-Risk Patients (6 to 64 Years)Aged Out No longer eligible based on patient's age to complete this topicRotavirus VaccinesAged OutNo longer eligible based on patient's age to complete this topic Care Teams Team MemberRelationshipSpecialtyStart DateEnd Date Michael Plummer MD [address] [place] [address] PCP - General05/28/22 Tom Bustillos MD [address] [facility] [address] [facility] [place] [address] Consulting PhysicianSle Medicine08/02/18 Jessica Winter MD [address] [place] [address] CardiologistCardiology05/28/22
--- OUTSIDE RECORDS SUMMARY | 2025-03-01 08:11 | XMS_ITS | Clinical Summary ---
Author Organization [facility] Address [address] [place] [address] Care Team Providers Care Min[employer] Insulation Supervisor Name Role Phone Michael Plummer MD Unavailable Michael Plummer MD Primary Care Provider [phone] Allergies Active AllergyReactionsCriticalityNoted DateCommentsPenicillinsOther,Unknown 07/18/2018 Medications MedicationSigDispense QuantityRefillsLast FilledStart DateEnd DateStatus apixaban (Eliquis) 5 MG tablet Take 1 tablet by mouth in the morning and 1 tablet before bedtime.Active metoprolol succinate XL (Toprol-XL) 25 MG 24 hr tablet Take 1 tablet by mouth DailyActive metFORMIN XR (Glucophage-XR) 500 MG 24 hr tablet Indications:Type 2 diabetes mellitus with hyperglycemia (HCC)TAKE 1 TABLET BY MOUTH TWICE A DAY 180 tablet 4Active lisinopril 20 MG tablet Indications:Essential hypertension, benignTAKE 1 TABLET BY MOUTH TWICE A DAY 180 tablet 5Active cholecalciferol (Vitamin D-3) 50 MCG (1999) tablet Indications:Vitamin D deficiency, unspecified,Vitamin D deficiencyTAKE 1 TABLET BY MOUTH EVERY DAY 30 tablet 5Active atorvastatin (Lipitor) 40 MG tablet Indications:Type 2 diabetes mellitus with hyperglycemia, without long-term current use of insulin (HCC)TAKE 1 TABLET BY MOUTH EVERYDAY AT BEDTIME 90 tablet 5Active semaglutide (Ozempic, 1 MG/DOSE,) 4 MG/3ML solution pen-injector Indications:Type 2 diabetes mellitus with hyperglycemia, without long-term current use of insulin (HCC)Inject 1 mg under the skin 1 (one) time per week 1 each 5Active Glucose Blood (Blood Glucose Test) strip Indications:Type 2 diabetes mellitus with hyperglycemia, without long-term current use of insulin (HCC)1 each by In Vitro route Daily 50 strip 5Active Lancets Micro Thin 33G misc Indications:Type 2 diabetes mellitus with hyperglycemia, without long-term current use of insulin ([facility])1 each Daily 50 each 5Active meloxicam (Mobic) 15 MG tablet Indications:Plantar fasciitis of right footTake 1 tablet (15 mg) by mouth Daily Take with food 30 tablet 5Active Blood Glucose Monitoring Suppl (coJuvo Reflect) w/Device kit Indications:Type 2 diabetes mellitus with hyperglycemia, without long-term current use of insulin ([facility])EVERY DAY 1 kit 5Active Active Problems ProblemNoted DateDiagnosed DatePlantar fasciitis of right foot08/07/2024 Assessment & Plan (08/07/2024 3:38 PM EDT): [...] worsening symptoms contact office. AF (paroxysmal atrial fibrillation)08/10/2023 Assessment & Plan (08/07/2024 3:38 PM EDT): In NSR and continue medication. Follow up with cardiology. Assessment & Plan (02/08/2024 11:30 AM EST): In NSR and continue medication. Follow up with cardiology. Assessment & Plan (08/10/2023 1:53 PM EDT): In NSR and continue medication. Follow up with cardiology. Essential hypertension, kquuuw4308/10/2023 Assessment & Plan (08/07/2024 3:38 PM EDT): BP controlled and monitor PRN. Assessment & Plan (02/08/2024 11:30 AM EST): BP controlled and monitor PRN. Assessment & Plan (08/10/2023 1:53 PM EDT): BP controlled and monitor PRN. Generalized anxiety kjwlipgd69/08/2024Gastroesophageal reflux disease without nzodxckxsme26/08/2024 Assessment & Plan (02/08/2024 11:30 AM EST): Occasional symptoms and use OTC PRN. Assessment & Plan (08/10/2023 1:54 PM EDT): Occasional symptoms and use OTC PRN. Leg cramp08/10/2023OSA on CPAP08/10/2023 Assessment & Plan (08/07/2024 3:38 PM EDT): Sleeping well with CPAP and use nightly. The patient is benefiting from PAP therapy. Assessment & Plan (08/10/2023 1:54 PM EDT): Sleeping well with CPAP and use nightly. The patient is benefiting from PAP therapy. Type 2 diabetes mellitus with hyperglycemia, without long-term current use of etwaovw8008/10/2023 Assessment & Plan (08/07/2024 3:39 PM EDT): [...] ADA diet and limit carbs. Vitamin D pgorbqcwri15/08/2024Encounter for long-term (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 osbhcmvpprr31/08/2024Screening PSA (prostate specific antigen)08/10/2023lass 1 obesity due to excess calories with serious comorbidity and body mass index (BMI) of 34.0 to 34.9 in adult08/10/2023 Immunizations ImmunizationAdministration DatesNext DuePfizer Cook Cap SARS-CoV-2 Vaccination 2Pfizer Purple Cap SARS-CoV-2 Hawmyhxruev76/07/2021,06/18/2020Tdap 07/06/2010 Family History Medical HistoryRelationNameCommentsCancerBrotherJeffLungDiabetesFatherPatrick Heart diseaseFatherPatrickHypertensionFatherPatrickHeart diseaseMotherJudith HypertensionMotherJudithCancerPaternal GrandfatherRobertColonRelationNameStatus CommentsBrotherJeffFatherPatrickMotherJudithPaternal GrandfatherRobert Social History Tobacco UseTypesPacks/DayYears UsedDateSmoking Tobacco: FormerCigarettes0.520 Smokeless Tobacco: Never Tobacco Cessation:Counseling Given: Not Answered Alcohol UseStandard Drinks/WeekCommentsNot Currently1 (1 standard drink = 0.6 oz pure alcohol)rareSocial Connection and Isolation PanelAnswerDate Recorded Frequency of Communication with Friends and FamilyNot on file08/03/2023How often do you get together with friends or relatives?Patient lwsixevn52/01/2024How often do you attend buddhism or rastafarian services?Patient gcwtdpma66/01/2024o you belong to any clubs or organizations such as buddhism groups, unions, fraternal or athletic groups, or school groups?Patient qyiuotpw15/01/2024How often do you attend meetings of the clubs or organizations you belong to?Patient xyzeljgm05/01/2024re you , , , , never , or living with a partner?Patient pumiqmta78/01/2024UDIT-CAnswerDate RecordedQ1: How often do you have a drink containing alcohol?Patient minzasdp69/01/2024Q2: How many drinks containing alcohol do you have on a typical day when you are drinking?Patient pvcfyuiu93/01/2024Q3: How often do you have six or more drinks on one occasion?Patient wqhevawo67/01/2024Overall Financial Resource Strain (CARDIA)AnswerDate RecordedHow hard is it for you to pay for the very basics like food, housing, medical care, and heating?Patient icqyhnls02/01/2024[facility] [place] [facility] - Occupational Stress QuestionnaireAnswerDate RecordedDo you feel stress - tense, restless, nervous, or anxious, or unable to sleep at night because yourmind is troubled all the time - these days?Patient njznlwwa41/01/2024Exercise Vital SignAnswerDate RecordedOn average, how many days per week do you engage in moderate to strenuous exercise (like a brisk wal k)?Patient bkeexkbk29/01/2024On average, how many minutes do you engage in exercise at this level?Patient /01/2024Hunger Vital SignAnswerDate RecordedWithin the past 12 months, you worried that your food would run out before you got the money to buymore.Patient tnzhilca64/01/2024Within the past 12 months, the food you bought just didn't last and you didn't have money to get more.Patient hocfyhyv38/01/2024RAPARE - TransportationAnswerDate RecordedIn the past 12 months, has lack of transportation kept you from medical appointments or from getting medications?Patient korfmpnk69/01/2024In the past 12 months, has lack of transportation kept you from meetings, work, or from getting things needed for daily living?Patient hcrdvcid98/01/2024Housing Stability Vital Sign AnswerDate RecordedIn the last 12 months, was there a time when you were not able to pay the mortgage or rent on time?Patient /01/2024Number of Places Lived in the Last YearNot on file08/03/2023In the last 12 months, was there a time when you did not have a steady place to sleep or slept in [place] (including now)?Patient dwublotq69/01/2024Sex and Gender InformationValueDate RecordedSex Assigned at BirthNot on fileLegal GzsKcxu38/10/2023 8:26 AM EST Gender IdentityNot on fileSexual OrientationNot on file Last Filed Vital Signs Vital SignReadingTime TakenCommentsBlood Hogkwnkk772/5805 3:00 PM EDT Poilq95055 3:00 PM IVLKcowyaiudrr46.4 ??C (97.5 ??F)08/07/2024 3:00 PM EDTRespiratory Psaq496008/07/2024 3:00 PM EDTOxygen Unifnqtcsz17%08/07/2024 3:00 PM EDTInhaled Oxygen Concentration--Gnyynq582 kg (249 lb)08/07/2024 3:00 PM EDT Vfoqwt063.3 cm (5' 11 )08/07/2024 3:00 PM EDTBody Mass Index34.7308/07/2024 3:00 PM EDT Plan of Treatment Health MaintenanceDue DateLast DoneCommentsCT Tsrfdrrztyjd30/05/1962FIT 1961FOBT1961 3897Rwsgafisatlxf43/05/1962Diabetes: Retinopathy Screening 09/07/1971Pneumococcal Vaccine: Pediatrics (0 to 5 Years) and At-Risk Patients (6 to 64 Years) (1 of 2 - PCV)1980FIT-DNA/1Diabetes: Hemoglobin A1C511/02/2024, 4Diabetes: Urine Protein Screening /4COVID-19 Vaccine ( season)504/, 07/09/2020, 06/18/2020Influenza Vaccine (#1)9816Uiganghfoav80/19/2033 3Colorectal Cancer Tcoqictmb52/19/2033 Insurance Care Teams Team MemberRelationshipSpecialtyStart DateEnd Date Michael Plummer MD [address] [place] [address] PCP - [facility]04/04/23 Michael Plummer MD [address] [place] [address] [facility] - [facility]
--- OUTSIDE RECORDS SUMMARY | 2025-03-01 08:11 | XMS_ITS | Clinical Summary ---
Author Organization [facility] Address [address] [place] [address] Care Team Providers Care Medical Receptionist Name Role Phone Donavon Morales MD Unavailable Michael Plummer MD Primary Care Provider [phone] Tomás Winter MD Unavailable [phone] Tomás Winter MD Unavailable [phone] Allergies Active AllergyReactionsCriticalityNoted QxdpEnpbtplbHbvlruidvnYblysrk01/16/2019 Medications MedicationSigDispense QuantityRefillsLast FilledStart DateEnd DateStatus cholecalciferol (VITAMIN D3) 50 mcg (2,000 unit) tablet Take 2,000 Units by mouth once daily.Active lisinopril (ZESTRIL, PRINIVIL) 20 mg tablet Take 20 mg by mouth twice daily.Active metFORMIN (GLUCOPHAGE) 500 mg tablet Take 500 mg by mouth two times a day with meals.Active OZEMPIC 1 mg/dose (4 mg/3 mL) pen one time a week.3Active apixaban (ELIQUIS) 5 mg tab(s) Indications:Persistent atrial fibrillation (HCC)Take 1 tablet by mouth two times a day. 180 tablet 5Active metoprolol succinate ER (TOPROL XL) 25 mg 24 hr tablet Take 1 tablet by mouth two times a day. 180 tablet ctive Active Problems Patient Care Coordination No te Formatting of this note migh t be different from the original. 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 ProblemNoted DateDiagnosed DateIRB MAP AF PI: Dr. Shannon Rodriguezin105/19/2020 Atrial imwczbswzssz14/13/2019 Overview (08/17/2018): Baseline ECG: AF, QTc 440, iRBBB (QRSd 94) CrCl: 90 08/14/2018 - started Tikosyn 500 mcg 08/16/2018 - successful cardioversion to NSR Discharge on Tikosyn 500 mcg Q12 Sleep apnea08/14/2018 Overview (08/17/2018): Continue using cpap Left atrial tatavcui38/01/2018 Overview (11/03/2018): per echo Encounters DateTypeDepartmentCare WgpeNoqmengigne50/27/9582Pipler97/29/2025Refill Cardiology [address] [place] [address] Tomás Winter MD Refill Aoawgib2912/05/2024 10:38 AM EDTAnesthesia Event HOSP EP Lab [address] [place] [id number] Cristi Alvarado MD Sutcliffe, Amanda, APRN.COLD ROLL CATCHER 12/05/2024 7:53 AM EDT - 12/05/2024 11:53 AM EDTHospital Encounter SNI[address] [place] [address] Tomás Winter MD Persistent atrial fibrillation (HCC) [I48.19] Discharge Disposition: Home12/05/2024 7:30 AM EDTOffice Visit Cardiology [address] [place] [address] Tsering Saenz APRN.C[employer]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 Persistent atrial fibrillation (HCC) (Primary Dx); Primary hypertension; Chronic anticoagulation; Obstructive sleep apnea syndrome; Pre-penrtmpl90/03/2025 7:00 AM EDT - 12/05/2024 8:00 AM EDTSurgery HOSP EP Lab [address] [place] [address] Tomás Winter MD CARDIOVERSION EXTERNAL RJPYUPCV07/03/2025 7:00 AM EDTProcedure Cardiology [address] [place] [address] 12/04/2024Education Cardiology [address] [place] [address] Tomás Winter MD Patient Education (EPS- DCC)11/29/20249159Tqydet86/28/2025Telephone Cardiology [address] [place] [address] Tomás Winter MD Received Outside Medical Records (EKG)from Last 3 Months Immunizations ImmunizationAdministration DatesNext Duetetanus diphtheria pertussis (Tdap) vaccine, age 7+ yr (ADACEL, BOOSTRIX)07/06/2010 Family History Medical HistoryRelationCommentsDiabetesBrother 1Heart diseaseBrother 1 HypertensionBrother 2Coronary Artery DiseaseFathers/p CABGHeartMotherAF HypertensionMotheratrial fibrillationMotherHeartSisterMVPRelationStatusComments Brother 1AliveBrother 2AliveFatherDeceasedMotherDeceasedSisterAlive Social History Tobacco UseTypesPacks/DayYears UsedDateSmoking Tobacco: FormerCigarettesQuit: 2018Smokeless Tobacco: Never Tobacco Cessation:Counseling Given: Not Answered Alcohol UseStandard Drinks/WeekCommentsYes0 (1 standard drink = 0.6 oz pure alcohol)rarelyPHQ-2AnswerDate RecordedPHQ2 Vxdrv264Area Deprivation IndexAnswerDate RecordedNational Score (1-100), lower number is lower risk68 03/08/2023State Score (1-10), lower number is lower miik9563Data from: https://www.neighborhoodatlas.medicine.[place].edu/. Last address used for fhoxkmnjgiz[address]/09/[address]Sex and Gender InformationValueDate RecordedSex Assigned at TqxauYoaj42/04/2022 6:28 PM ESTLegal MawJwkj9707/06/2018 11:58 AM EDTGender UncewbfySwsf78/04/2022 6:28 PM ESTSexual OrientationStraight 04/07/2021 6:28 PM EST Last Filed Vital Signs Vital SignReadingTime TakenCommentsBlood Opnsbpfh875/70012/05/2024 11:43 AM EDT Sdaxe603812/05/2024 11:43 AM LUWEafniqvwmpf64.6 ??C (96.1 ??F)12/05/2024 8:43 AM EDTRespiratory Mqvl707812/05/2024 11:43 AM EDTOxygen Aszyvjfrjn15%12/05/2024 11:43 AM EDTInhaled Oxygen Concentration--Cldjle929.6 kg (250 lb 6.4 oz)12/05/2024 8:43 AM GPCKvibyp019.3 cm (5' 11 )12/05/2024 7:41 AM EDTBody Mass Index34.92 12/05/2024 7:41 AM EDT Plan of Treatment DateTypeDepartmentCare Team (Latest Contact Info)Auwqrotmtrw45/04/2025 9:00 AM ESTProcedure Cardiology [address] [id number] Dx. PERSISTANT AFIB03/07/2025 10:00 AM ESTOffice Visit Cardiology [address] [address] Tomás Winter MD [address] [place] [address] Dx. PERSISTANT AFIBHealth MaintenanceDue DateLast DoneCommentsAnnual PCP Team Chronic Disease Visit09/07/1979Anxiety Ghpvmvduk42/05/1980Depression Screening 09/07/1979HIV Argvhcvlv60/05/1980Hepatitis C Ulgltacdd06/05/1980Lipid Screening 1996CT Tmdxnjqplkwj29/05/0770Peacoxmtlme39/05/2007Fecal Occult Blood 09/06/20067856Cumcwmkzqdlhg09/05/2007Pneumococcal Vaccine: 50+ (1 of 1 - PCV) 09/07/2011Shingrix Vaccine (1 of 2)09/07/2011DTaP,Tdap,Td Vaccine (2 - Td or Tdap)/07/2010Cologuard (FIT-DNA)olorectal Cancer Dvnmhncvt76/18/2024Covid-19 Vaccine (5 - season)2024 02/06/2022, 07/20/2021, 07/09/2020, Additional history existsInfluenza Vaccine (#1)12/03/2024Diabetes Fueymjouw36/03/00666012/05/2024, 03/18/2021, 11/07/2020, Additional history existsProstate Cancer Screening Vfpzfizcct13/31/2030 09/01/2024, 2RSV Vaccine (1 - 1-dose 75+ series)2036 Goals GoalPatient Goal TypeAssociated ProblemsRecent ProgressPatient-Stated?Author Blood Pressure < 130/80 Blood Rgdaddxh384/70(12/05/2024 11:43 AM EDT)Sue Puente Procedures Procedure NamePriorityDate/TimeAssociated DiagnosisCommentsECG COMPLETERoutine 12/05/2024 11:02 AM EDT EPS: ZVAYIZUIPFORY03/03/2025 10:44 AM EDT CARDIOVERSION ELECTIVE ARRHYTHMIA ZMASWKVN77/03/2025 10:35 AM EDT Persistent atrial fibrillation (HCC) COMPREHENSIVE METABOLIC YHXGJKHBI72/03/2025 9:03 AM EDT ECG XETUAFJNGqqvvtv57/03/2025 7:11 AM EDT Persistent atrial fibrillation (HCC) EXTERNAL JCTNAKGHLO70/28/2025 12:18 PM EDT from Last 3 Months Results * ECG COMPLETE (12/05/2024 11:02 AM EDT)ComponentValueRef RangeTest Method Analysis TimePerformed AtPathologist SignatureVentricular Wlzv93BLGFHAAL AND VASCULAR INSTITUTEAtrial Jsft88HVVWKFEK AND VASCULAR INSTITUTEP-R Wcjdwvld871 msHEART AND VASCULAR INSTITUTEQRS Wjtxnxxw19zpHBRNY AND VASCULAR INSTITUTEQT Uhryzbgs388mhWDIDI AND VASCULAR INSTITUTEQTC Calculation (Deonzett)422msHEART AND VASCULAR INSTITUTECalculated P Xdah44ebdnfrkTWEFF AND VASCULAR INSTITUTE Calculated R Jraq62vcviulxIENMS AND VASCULAR INSTITUTECalculated T Axis58 degreesHEART AND VASCULAR INSTITUTESpecimen (Source)Anatomical Location / LateralityCollection Method / VolumeCollection TimeReceived Time12/05/2024 11:02 AM EDT Impressions [facility] - 12/31/2024 9:09 PM EDT NORMAL SINUS RHYTHM NORMAL ECG Confirmed by TITA WALDEN MD ([id number]) on 12/31/2024 9:09:13 PM Narrative [facility] - 12/31/2024 9:09 PM EDT NAME : ABBEY LOWE PID : [id number] : 1960 Gender : Male Race : ORD : [id number] Procedure Date : Dec 05 2024 11:02:54 Edit Date : Dec 31 2024 21:09:19 Diagnosis: NORMAL SINUS RHYTHM NORMAL ECG Confirmed by TITA WALDEN MD ([id number]) on 12/31/2024 9:09:13 PM Test Reason : Post-OP Location : 23 : J21NS ??SHAYAN-022 Overread By : TITA WALDEN MD Edited By : TITA WALDEN MD Referred By : , Acquired by : [id number], Authorizing ProviderResult TypeResult StatusOussaniraj Winter MDEKGFinal Result Performing OrganizationAddressCity/State/ZIP CodePhone Number [facility] [address] [place] [address] * EPS: CARDIOVERSION (12/05/2024 10:44 AM EDT)Specimen (Source)Anatomical Location / LateralityCollection Method / VolumeCollection TimeReceived Time 12/05/2024 10:44 AM EDT Narrative [facility] - 12/05/2024 5:05 PM EDT Final Report Cardiac Electrophysiology Laboratory [address] [place] [address] The entire procedure was performed by the Staff Physician without the assistance of a Fellow. This report has been electronically signed on 12/05/2024 17:05 by DIANA PENN MD Procedure: DC Cardioversion Room: [facility] 6 Date of service: 12/05/2024 Patient entered lab: 10:35 AM Start Time: 10:44 AM End Time: 10:48 AM Indications for procedure: Persistent atrial fibrillation (>48 hours) in a patient unresponsive to or intolerant of antiarrhythmic drug therapy. Preoperative diagnosis: Persistent atrial fibrillation (>48 hours) in a patient unresponsive to or intolerant of antiarrhythmic drug therapy. Postoperative diagnosis: Persistent atrial fibrillation (>48 hours) in a patient unresponsive to or intolerant of antiarrhythmic drug therapy. Patient History: 64 year old man with AF here for cardioversion. Procedure Note: Successful cardioversion. Summary Findings: The cardioversion was successful. 1. The presenting arrhythmia was atrial fibrillation. 2. Sinus rhythm with a ventricular rate of 80 beats per minute was observed after the procedure. There were no intraprocedural complications or adverse events. Procedure Profile: ? I/O: 30/0 (mL) Net: 30 mL ? Deep sedation was provided by Anesthesia personnel and will be documented in their records. ? Sedative Drugs: ?Brevital 50 mg IV ? Specimens removed: None ? Estimated blood loss: 0 cc Patient Profile: Age: 64 Gender: Male Race: White NYHA Class: None LV function: ECHO: Ejection fraction 0.55 VWY9JO1-KBIx risk score: 0 Congestive heart failure/LV dysfunction: 0 Hypertension: 0 Age >= 75 years: 0 Diabetes mellitus: 0 Stroke, TIA, or thromboembolism: 0 Vascular disease (prior [place]/CAD, PAD or aortic plaque): 0 Age 65-74 years: 0 Sex, female: 0 Duration of arrhythmia: > 7 days Duration of anticoagulation: > 1 year Patient: [id number] ABBEY LOWE Lab Staff: DIANA PENN MD Lab Fellow: Referring Physician: TOMÁS WINTER MD Authorizing ProviderResult TypeResult StatusCcf ProviderSCHEDULED PROCEDURES Final ResultPerforming OrganizationAddressCity/State/ZIP CodePhone Number [facility] [address] [place] [address] * (ABNORMAL) COMPREHENSIVE METABOLIC PANEL (12/05/2024 9:03 AM EDT)Component ValueRef RangeTest MethodAnalysis TimePerformed AtPathologist Signature Protein, Total6.1(L)6.3 - 8.0 g/dL12/05/2024 9:30 AM [facility] LABAlbumin4.03.9 - 4.9 g/dL12/05/2024 9:30 AM [facility] LABCalcium, Total9.08.5 - 10.2 mg/dL12/05/2024 9:30 AM [facility] LABBilirubin, Total0.60.2 - 1.3 mg/dL12/05/2024 9:30 AM EDT [facility] LABAlkaline Uibyhphmdca7635 - 113 U/L12/05/2024 9:30 AM [facility] SMMNTR8935 - 40 U/L12/05/2024 9:30 AM [facility] WHSXQK6085 - 54 U/L12/05/2024 9:30 AM [facility] YOZHljztcb787(H)74 - 99 mg/dL12/05/2024 9:30 AM [facility] LABComment: The [place] Diabetes Association (ADA) provides guidance for cutoff [...] Standards of Medical Care in Diabetes 2016, [place] Diabetes Association. Diabetes Care. 2016.39(Suppl 1). XAF291 - 24 mg/dL12/05/2024 9:30 AM [facility] LAB Creatinine1.000.73 - 1.22 mg/dL12/05/2024 9:30 AM [facility] VQAZbvbzv628034 - 144 mmol/L12/05/2024 9:30 AM [facility] LABPotassium4.33.7 - 5.1 mmol/L12/05/2024 9:30 AM [facility]TCP[facility] SABFgxkybko77064 - 107 mmol/L12/05/2024 9:30 AM [facility] PFTYP14845 - 30 mmol/L12/05/2024 9:30 AM [facility] LABAnion Pri921 - 15 mmol/L12/05/2024 9:30 AM [facility] LABEstimated Glomerular Filtration Rate85>=60 mL/min/1.73m 12/05/2024 9:30 AM [facility] LABComment:Estimated Glomerular Filtration Rate (eGFR) is calculated using the 2020 CKD-EPI creatinine equation. This equation utilizes serum creatinine, sex, and age as parameters. The creatinine assay has traceable calibration to isotope dilution- mass spectrometry. Refer to KDIGO guidelines for clinical interpretation. In patients with unstable renal function, e.g. those with acute kidney injury, the eGFRmay not accurately reflect actual GFR.Specimen (Source)Anatomical Location / LateralityCollection Method / VolumeCollection TimeReceived TimeBloodBLOOD SPECIMEN / UnknownVenipuncture / Cidsukv1312/05/2024 9:03 AM EDT12/05/2024 9:08 AM EDT Narrative Authorizing ProviderResult TypeResult StatusOuspaolo Winter MDLABORATORYFinal ResultPerforming OrganizationAddressCity/State/ZIP CodePhone Number [facility] LAB [address] [place] [address], * ECG COMPLETE (12/05/2024 7:11 AM EDT)ComponentValueRef RangeTest Method Analysis TimePerformed AtPathologist SignatureVentricular Pjot822YFHKQNLQ AND VASCULAR INSTITUTEQRS Uabjafbs83lvPUTIQ AND VASCULAR INSTITUTEQT Akqgxzil623rv HEART AND VASCULAR INSTITUTEQTC Calculation (Bazett)463msHEART AND VASCULAR INSTITUTECalculated R Roem90cjefxaiXUYGB AND VASCULAR INSTITUTECalculated T Dxin18alxrwliYEUKR AND VASCULAR INSTITUTESpecimen (Source)Anatomical Location / LateralityCollection Method / VolumeCollection TimeReceived Time12/05/2024 7:11 AM EDT Impressions [facility] - 02/02/2025 3:25 PM EDT ATRIAL FLUTTER WITH VARIABLE BLOCK NONSPECIFIC ST ABNORMALITY ABNORMAL ECG Confirmed by MOUDGIL, MD, PhD, KATHERINE ([id number]) on 02/02/2025 3:24:59 PM Narrative [facility] - 02/02/2025 3:25 PM EDT NAME : JAKOBABBEY MARIO PID : [id number] : 1960 Gender : Male Race : ORD : [id number] Procedure Date : Dec 05 2024 07:11:58 Edit Date : Feb 02 2025 15:25:02 Diagnosis: ATRIAL FLUTTER WITH VARIABLE BLOCK NONSPECIFIC ST ABNORMALITY ABNORMAL ECG Confirmed by MD KARLA, PhD, KATHERINE ([id number]) on 02/02/2025 3:24:59 PM Test Reason : Location : 314 : J14 ??J1-4 Overread By : MD KARLA, PhD,KATHERINE Edited By : MD KARLA, PhD,KATHERINE Referred By : TOMÁS WINTER Acquired by : DARCIE AMBRIZ Authorizing ProviderResult TypeResult StatusOussaniraj Winter MDEKGFinal Result Performing OrganizationAddressCity/State/ZIP CodePhone Number [facility] [address] [place] [address] * EXTERNAL CARDIOLOGY (11/29/2024 12:18 PM EDT) Narrative Authorizing ProviderResult TypeResult StatusExternal Provider PA-CCARDIOLOGY Final Result from Last 3 Months Insurance Care Teams Team MemberRelationshipSpecialtyStart DateEnd Date Michael Plummer MD [address] [place] [address] PCP - GeneralFami Medicine07/18/18 Donavon Morales MD [address] [place] [address] ReferringCardiology07/06/18 Tomás Winter MD [address] [place] [address] Cardiology11/26/24 Tomás Winter MD [address] [place] [address] Primary Staff PhysicianCardiology12/05/24
--- OUTSIDE RECORDS SUMMARY | 2025-03-01 08:11 | XMS_ITS | Encounter Summary ---
Author Organization [facility] Address [facility] [place] [address] Care Team Providers Care Team Sports Sales Associate Name Role Phone Donavon Morales MD Unavailable Michael Plummer MD Primary Care Provider [phone] Jessica Winter MD Unavailable [phone] Jessica Winter MD Unavailable [phone] Source Comments In the event this information is protected by the Federal Confidentiality of Alcohol and Drug AbusePatient Records regulations: The Federal rules restrict any use of the information to criminally investigate or prosecute any alcohol or drug abuse patient.[facility] Encounter Details DateTypeDepartmentCare Team (Latest Contact Info)Bzpugdtzqew14/27/2025Travel Social History Tobacco UseTypesPacks/DayYears UsedDateSmoking Tobacco: FormerCigarettesQuit: 2018Smokeless Tobacco: NeverAlcohol UseStandard Drinks/WeekCommentsYes0 (1 standard drink = 0.6 oz pure alcohol)rarelyPHQ-2AnswerDate RecordedPHQ2 Score0 08/12/2019Area Deprivation IndexAnswerDate RecordedNational Score (1-100), lower number is lower xfnw281903/08/2023State Score (1-10), lower number is lower risk5 03/08/2023ata from: https://www.neighborhoodatlas.medicine.[facility]/. Last address used for ybmllewdmeu[address]/09/[address]22Sex and Gender InformationValueDate RecordedSex Assigned at ItipmBxyv35/04/2022 6:28 PM EST Legal FylDyje9607/06/2018 11:58 AM EDTGender ZzvlokbpZwam79/04/2022 6:28 PM EST Sexual XgmujycegvxVzgmroyb48/04/2022 6:28 PM ESTdocumented as of this encounter Functional Status * Are you deaf or do you have serious difficulty hearing?AnswerDate of LpfzbmbiwoSegsifHu85/03/2025 11:04 AM Estefany Bear RN * Are you blind or do you have serious difficulty seeing, even when wearing glasses?AnswerDate of FjfsbirsltMbykhnUp38/03/2025 11:04 AM Estefany Bear RN * Do you have serious difficulty walking or climbing stairs?AnswerDate of SyqvicnvzqExynhbEa41/03/2025 11:04 AM Estefany Bear RN * Do you have difficulty dressing or bathing?AnswerDate of AssessmentAuthorNo 12/05/2024 11:04 AM Estefany Bear RN * Because of a physical, mental, or emotional condition, do you have difficulty doing errands alone such as visiting a doctor's office or shopping?AnswerDate of LoaviewfmbKwamezDz24/03/2025 11:04 AM Estefany Bear RN documented as of this encounter Mental Status * Because of a physical, mental, or emotional condition, do you have serious difficulty concentrating, remembering, or making decisions?AnswerEntry Date GailirSv47/03/2025 11:04 AM Estefany Bear RN documented in this encounter Plan of Treatment DateTypeDepartmentCare Team (Latest Contact Info)Ekodhfyflmx87/04/2025 9:00 AM ESTProcedure Cardiology [address] [place] [address] Dx. PERSISTANT AFIB03/07/2025 10:00 AM ESTOffice Visit Cardiology [address] [place] [address] Jessica Winter MD [address] [place] [address] Dx. PERSISTANT AFIBdocumented as of this encounter Goals GoalPatient Goal TypeAssociated ProblemsRecent ProgressPatient-Stated?Author Blood Pressure < 130/80 Blood Mlpvzsfh875/70(12/05/2024 11:43 AM EDT)Sue Puentedocumented as of this encounter Visit Diagnoses Not on filedocumented in this encounter Care Teams Team MemberRelationshipSpecialtyStart DateEnd Date Michael Plummer MD [address] [place] [address] PCP - GeneralFamily Medicine07/18/18 Donavon Morales MD [address] [place] [address] ReferringCardiology07/06/18 Jessica Winter MD [address] [place] [address] Cardiology11/26/24 Jessica Winter MD [address] [place] [address] Primary Staff PhysicianCardiology12/05/24documented as of this encounter
--- NOTE | 2025-03-01 08:13 | MR_ITS ---
[address] [address] Patient Name: ABBEY ROBERT MRN: [id number] date: 1960 Sex: M Assigned Patient Location: MRI Current Patient Location: MRI Accession/Order Number: [id number] Exam Date: 03/01/2025 09:15 Report Date: 03/01/2025 10:28 At the request of: JUDITH SPANGLER MD Procedure: MR knee RT wo con MR knee RT wo con 03/01/2025 10:07 AM SIGNS AND SYMPTOMS: Internal Derangement Of Right Knee PROTOCOL: Multiplanar multisequence MR images of the right knee without IV contrast COMPARISON: None. FINDINGS: Fluid: There is a small joint effusion.. Medial compartment: Medial meniscus: There is increased signal intensity in a horizontal fashion along the posterior horn of the medial meniscus possibly representing a nondisplaced tear. Medial collateral ligament: Intact. Medial femoral condyle cartilage: There is partial thickness chondromalacia. Medial tibial plateau cartilage: There is partial thickness chondromalacia. Lateral compartment: Lateral meniscus: Intact. Lateral collateral ligament: Intact. Lateral femoral condyle cartilage: Preserved. Lateral tibial plateau cartilage: Preserved. Posterolateral corner: Popliteus tendon: Intact. Popliteofibular ligament: Intact. Proximal tibiofibular joint: Preserved. Anterior compartment: Alignment: Normal. Quadriceps tendon: Intact. Patellar tendon: Intact. Retinaculum: Medial intact. Lateral intact. Patellar cartilage: Preserved. Trochlea: Preserved.. Plica: None Hoffa fat pad: Normal Intercondylar compartment: Anterior cruciate ligament: Intact. Posterior cruciate ligament: Intact. Bones (other than subarticular marrow): Normal. Muscles: Normal. Vessels: Normal. Nerves: Normal. MR/MR knee RT wo con IMPRESSION: There is increased signal intensity in a horizontal fashion along the posterior horn of the medial meniscus possibly representing a nondisplaced tear. There is partial thickness chondromalacia along both sides of the medial weightbearing joint space. There is a small joint effusion. Impression dictated by: Gaetano Guzman M.D. 03/01/2025 10:28 AM Dictation Location: [place] [address] Electronically authenticated by: [id number] Y Date: 03/01/2025 10:28
--- NOTE | 2025-03-01 08:54 | XR_ITS ---
The [address] [address] Patient Name: ABBEY ROBERT MRN: [id number] date: 1960 Sex: M Assigned Patient Location: MRI Current Patient Location: MRI Accession/Order Number: [id number] Exam Date: 03/01/2025 08:55 Report Date: 03/01/2025 09:15 At the request of: JUDITH SPANGLER MD Procedure: XR foreign body eye CARTER ORBITS FOR FOREIGN BODY - 2 views COMPARISON: None CLINICAL DATA: Foreign body screening for MRI Lateral and Rowley views were obtained. No radiopaque orbital foreign bodies are identified. The imaged paranasal sinuses appear grossly clear. XR/XR foreign body eye CARTER IMPRESSION: NO EVIDENCE OF ORBITAL RADIOPAQUE FOREIGN BODY. Impression dictated by: Elise Mccurdy M.D. 03/01/2025 9:15 AM Dictation Location: [place] [address] Electronically authenticated by: [id number] Y Date: 03/01/2025 09:15
== END 2025-03-01 08:08 | disposition home or self-care (01) ==
LOC: MRI 08:08
PROVIDERS: PCP Family Medicine; Visit Provider Family Medicine
DX: M25.461 Effusion, right knee (principal); S83.8X1A Sprain of other specified parts of right knee, initial encounter; M23.91 Unspecified internal derangement of right knee; Z79.899 Other long term (current) drug therapy; E11.65 Type 2 diabetes mellitus with hyperglycemia
CPT/HCPCS: 70030; 73721

== ENCOUNTER 2025-03-16 09:53 | Outpatient (OUT) | payer BC, SELFPAY ==
--- OUTSIDE RECORDS SUMMARY | 2025-03-16 09:56 | XMS_ITS | Clinical Summary ---
Author Organization [facility] Address [address] [place] [address] Care Team Providers Care Soft Boarder Name Role Phone Michael Plummer MD Unavailable Michael Plummer MD Primary Care Provider Allergies Active AllergyReactionsCriticalityNoted DateCommentsPenicillinsOther,Unknown 07/18/2018 Medications MedicationSigDispense [...] long-term current use of insulin ([facility])1 each Daily 50 each 5Active meloxicam (Mobic) 15 MG tablet Indications:Plantar fasciitis of right footTake 1 tablet (15 mg) by mouth Daily Take with food 30 tablet 5Active Blood Glucose Monitoring Suppl ([employer] Reflect) w/Device kit Indications:Type 2 diabetes mellitus with hyperglycemia, without long-term current use of insulin ([facility])EVERY DAY 1 kit 5Active Active Problems ProblemNoted [...] medication. Follow up with cardiology. Essential hypertension, hootmc6608/10/2023 Assessment & Plan (08/07/2024 3:38 PM EDT): BP controlled and monitor PRN. Assessment & Plan (02/08/2024 11:30 AM EST): BP controlled and monitor PRN. Assessment & Plan (08/10/2023 1:53 PM EDT): BP controlled and monitor PRN. Generalized anxiety kjjgxxaz49/08/2024Gastroesophageal reflux disease without /08/2024 Assessment & Plan (02/08/2024 11:30 AM EST): [...] with hyperglycemia, without long-term current use of rnokyan3708/10/2023 Assessment & Plan (08/07/2024 3:39 PM EDT): [...] ADA diet and limit carbs. Vitamin D ulgrrronuf79/08/2024Encounter for long-term (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 ocnjbufblrf50/08/2024Screening PSA (prostate specific antigen)08/10/2023lass 1 obesity due to excess calories with serious comorbidity and body mass index (BMI) of 34.0 to 34.9 in adult08/10/2023 Immunizations ImmunizationAdministration DatesNext DuePfizer Cook Cap SARS-CoV-2 Vaccination 2Pfizer Purple Cap SARS-CoV-2 Npvvldxwppx29/07/2021,06/18/2020Tdap 07/06/2010 Family History Medical HistoryRelationNameCommentsCancerBrotherJeffLungDiabetesFatherPatrick Heart diseaseFatherPatrickHypertensionFatherPatrickHeart diseaseMotherJudith HypertensionMotherJudithCancerPaternal GrandfatherRobertColonRelationNameStatus CommentsBrotherJeffFatherPatrickMotherJudithPaternal GrandfatherRobert Social History Tobacco UseTypesPacks/DayYears UsedDateSmoking Tobacco: FormerCigarettes0.520 Smokeless Tobacco: Never Tobacco Cessation:Counseling Given: Not Answered Alcohol UseStandard Drinks/WeekCommentsNot Currently1 (1 standard drink = 0.6 oz pure alcohol)rareSocial Connection and Isolation PanelAnswerDate Recorded Frequency of Communication with Friends and FamilyNot on file08/03/2023How often do you get together with friends or relatives?Patient dkautqcn15/01/2024How often do you attend islam or mandaen services?Patient moezkysj20/01/2024o you belong to any clubs or organizations such as islam groups, unions, fraternal or athletic groups, or school groups?Patient usmgrlkr31/01/2024How often do you attend meetings of the clubs or organizations you belong to?Patient aovjugyl95/01/2024re you , , , , never , or living with a partner?Patient vqjhhaid57/01/2024UDIT-CAnswerDate RecordedQ1: How often do you have a drink containing alcohol?Patient sddcjujc48/01/2024Q2: How many drinks containing alcohol do you have on a typical day when you are drinking?Patient sivhimrj67/01/2024Q3: How often do you have six or more drinks on one occasion?Patient spygqzxy21/01/2024Overall Financial Resource Strain (CARDIA)AnswerDate RecordedHow hard is it for you to pay for the very basics like food, housing, medical care, and heating?Patient nvohwqxu16/01/2024[facility] [place] [facility] - Occupational Stress QuestionnaireAnswerDate RecordedDo you feel stress - tense, restless, nervous, or anxious, or unable to sleep at night because yourmind is troubled all the time - these days?Patient eiikeosz04/01/2024Exercise Vital SignAnswerDate RecordedOn average, how many days per week do you engage in moderate to strenuous exercise (like a brisk wal k)?Patient cxvyrteg19/01/2024On average, how many minutes do you engage in exercise at this level?Patient cirykvfs16/01/2024Hunger Vital SignAnswerDate RecordedWithin the past 12 months, you worried that your food would run out before you got the money to buymore.Patient mslfulah38/01/2024Within the past 12 months, the food you bought just didn't last and you didn't have money to get more.Patient vyowlfsx44/01/2024RAPARE - TransportationAnswerDate RecordedIn the past 12 months, has lack of transportation kept you from medical appointments or from getting medications?Patient ehftnyfd11/01/2024In the past 12 months, has lack of transportation kept you from meetings, work, or from getting things needed for daily living?Patient eyeduiyk40/01/2024Housing Stability Vital Sign AnswerDate RecordedIn the last 12 months, was there a time when you were not able to pay the mortgage or rent on time?Patient ljovnoug78/01/2024Number of Places Lived in the Last YearNot on file08/03/2023In the last 12 months, was there a time when you did not have a steady place to sleep or slept in [place] (including now)?Patient zvumbbdt54/01/2024Sex and Gender InformationValueDate RecordedSex Assigned at BirthNot on fileLegal QxcLcnh16/10/2023 8:26 AM EST Gender IdentityNot on fileSexual OrientationNot on file Last Filed Vital Signs Vital SignReadingTime TakenCommentsBlood Rcvrvqsn793/5805 3:00 PM EDT Wrrhn17775 3:00 PM STKCjtpbeqqshf37.4 ??C (97.5 ??F)08/07/2024 3:00 PM EDTRespiratory Gffi823308/07/2024 3:00 PM EDTOxygen Yxmcsbmxyx44%08/07/2024 3:00 PM EDTInhaled Oxygen Concentration--Kzdfef614 kg (249 lb)08/07/2024 3:00 PM EDT Emgqtl911.3 cm (5' 11 )08/07/2024 3:00 PM EDTBody Mass Index34.7308/07/2024 3:00 PM EDT Plan of Treatment Health MaintenanceDue DateLast DoneCommentsCT Znvwglkizkav55/05/1962FIT 1961FOBT1961 4433Sovttgnflmrml11/05/1962Diabetes: Retinopathy Screening 09/07/1971Pneumococcal Vaccine: Pediatrics (0 to 5 Years) and At-Risk Patients (6 to 64 Years) (1 of 2 - PCV)1980FIT-DNA/1Diabetes: Hemoglobin A1C511/02/2024, 4Diabetes: Urine Protein Screening /4COVID-19 Vaccine ( season)504/, 07/09/2020, 06/18/2020Influenza Vaccine (#1)7641Bphpjegusto94/19/2033 3Colorectal Cancer Tmywiwkme74/19/2033 Insurance Care Teams Team MemberRelationshipSpecialtyStart DateEnd Date Michael Plummer MD [address] [place] [phone] PCP - [facility]04/04/23 Michael Plummer MD [address] [place] [phone] [facility] - [facility]
--- OUTSIDE RECORDS SUMMARY | 2025-03-16 09:56 | XMS_ITS | CCD ---
Author Organization [facility] Care Team Providers Care Package Crimper Name Role Phone UNKNOWN, PROVIDER Admitting Unavailable UNKNOWN, PROVIDER Attending Unavailable MICHAEL SPANGLER Referring Unavailable DANYELERELinda, MICHAEL Primary Care Unavailable Donavon Morales Unavailable Michael Spangler Primary Care Provider MICHAEL SPANGLER Primary Care Physician Donavon Morales Unavailable Michael Spangler Primary Care Provider SHAIKH Selwyn MERCEDES Admitting Unavailable SHAIKH Selwyn [...] MICHAEL Gregory Consulting Unavailable Donavon Morales Unavailable [phone] Michael Spangler Primary Care Provider Terrence MACHUCA Attending Unavailable BRIGETTE, Terrence Mckeon Attending Unavailable Terrence MACHUCA Attending Unavailable Donavon Morales MD Unavailable Michael Spangler Primary Care Provider Michael Spangler MD Unavailable Michael Spangler MD Primary Care Provider Michael Spangler MD Primary Care Provider BLAYNE GUERIN Attending Unavailable NADERER, IMCHAEL Attending Unavailable RUSHER, RADHA Gregory Attending Unavailable RUSHER, RADHA Gregory Attending Unavailable RUSHER, RADHA Gregory Attending Unavailable RUSHER, RADHA Gregory Attending Unavailable RUSHER, RADHA Gregory Attending Unavailable NADERER, MICHAEL Attending Unavailable RUSHER, RADHA Gregory Attending Unavailable Jessica Winter MD Unavailable Jessica Winter MD Unavailable Michael Spangler MD Primary Care Provider Jessica Winter MD Attending Provider Michael Spangler MD Attending Provider Michael Spangler MD Primary Care Provider Michael Spangler MD Unavailable Michael Spangler MD Primary Care Provider [phone] TSERING SAENZ Attending Unavailable LUCILLE WINTERSSAMA M [...] Attending Provider Michael Spangler MD Attending Provider [phone] Allergies Allergy ClassificationReported Allergen(s)Allergy TypeDate of OnsetReaction(s) Facility (2 sources)Penicillins; 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: [PENICILLINS]Drug allergy (disorder) 75-47-1195Hqj [facility] Repository (5 sources)Penicillin; 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: [penicillin]Drug Moilxlt32-20-0144Qmpxccf (qualifier value)General Surgery [place] (17 sources)PenicillinsDrug Fxexmkv06-00-5082Itqcv, UnknownNOMS Healthcare Medications Current Medications MedicationDrug Class(es)DatesSig (Normalized)Sig (Original)apixaban 5 mg oral tablet (20 sources)Factor Xa InhibitorStart: 94-74-0160emoe 1 tablet by mouth twice dailyApixaban 5 mg tablet Active 5 MG PO Twice daily January 02, 2025 11:00pm Complies with drug therapyStart: 08-23-2022 End: 55-87-6288xdjk 1 tablet by mouth twice dailyapixaban (ELIQUIS) 5 mg tab(s) Indications: Persistent atrial fibrillation (HCC) Take 1 tablet by mouth two times a day. 180 tablet 3 09/03/2024 ActiveStart: 09-03-2020 End: 14-24-1709xdkh 1 tablet by mouth twice dailyELIQUIS 5 mg tab(s) TAKE 1 TABLET BY MOUTH TWICE A DAY 180 tablet 3 09/21/2021 ActiveComment on above:Take 1 tablet by mouth twice daily.TAKE 1 TABLET BY MOUTH TWICE A DAYatorvastatin 40 mg oral tablet (19 sources)HMG-CoA Reductase InhibitorStart: 01-03-2025 End: 48-55-7888zhhg 1 tablet by mouth once daily at bedtimeAtorvastatin 40 mg tablet Active 40 MG PO Daily at bedtime 30 January 28, 2025 9:52am Complies with drug therapyStart: 14-76-3242zqah 1 tablet by mouth once daily at bedtime atorvastatin (Lipitor) 40 MG tablet Indications: Type 2 diabetes mellitus with hyperglycemia, without long-term current use of insulin (HCC) TAKE 1 TABLET BY MOUTH EVERYDAY AT BEDTIME 90 tablet 1 08/06/2024 ActiveStart: 62-13-2522wtob 1 tablet by mouth at bedtimeatorvastatin (Lipitor) 40 MG tablet Indications: Type 2 diabetes mellitus with hyperglycemia, without long-term current use of insulin (CMS/HCC) TAKE 1 TABLET BY MOUTH AT BEDTIME 90 tablet 1 02/09/2024 ActiveStart: 53-91-9439lkom 1 tablet by mouth at bedtimeatorvastatin (Lipitor) 40 MG tablet Indications: Type 2 diabetes mellitus with hyperglycemia, without long-term current use of insulin (CMS/HCC) Take 1 tablet (40 mg) by mouth at bedtime 30 tablet 5 08/10/2023 ActiveBlood Glucose Monitoring Suppl (Blood Glucose Monitor System) w/Device kit (3 sources)Start: 18-33-7949Nawff Glucose Monitoring Suppl (Blood Glucose Monitor System) w/Device kit Indications: Type 2 diabetes mellitus with hyperglycemia, without long-term current use of insulin (CMS/HCC) 1 each Daily 1 kit 08/07/2024 ActiveBlood Glucose Monitoring Suppl (OneTouch Verio Reflect) w/Device kit (1 source)Start: 48-22-2403Qqcel Glucose Monitoring Suppl (OneTouch Verio Reflect) w/Device kit Indications: Type 2 diabetes mellitus with hyperglycemia, without long-term current use of insulin ([facility]) EVERY DAY 1 kit 11/05/2024 Active cholecalciferol 0.05 mg oral tablet (20 sources)Vitamin DStart: 01-03-2025 End: 80-70-7457gmww 1 tablet by mouth once dailyCholecalciferol (Vitamin D3) 50 mcg (2,000 unit) tablet Active 50 MCG PO Daily 30 January 18, 2025 10:55am Complies with drug therapyStart: 42-67-1951qblq 1 tablet by mouth once daily cholecalciferol (Vitamin D-3) 50 MCG (2000 UT) tablet Indications: Vitamin D deficiency, unspecified , Vitamin D deficiency TAKE 1 TABLET BY MOUTH EVERY DAY 30 tablet 5 07/17/2024 ActiveComment on above:Take 2,000 Units by mouth once daily.hydrOXYzine hydrochloride 25 mg oral tablet (13 sources)Antihistamine End: 61-47-9453cyne 1 tablet by mouth every six hours as neededhydrOXYzine HCl (ATARAX) 25 mg tablet Take 25 mg by mouth four times a day as needed. 12/05/2024 DiscontinuedComment on above:Take 25 mg by mouth four times a day as needed. lisinopril 20 mg oral tablet (20 sources)Angiotensin Converting Enzyme InhibitorStart: 12-85-3767kiqt 1 tablet by mouth twice dailyLisinopril 20 mg tablet Active 20 MG PO Twice daily January 02, 2025 11:00pm Complies with drug therapyStart: 35-36-5343gixh 1 tablet by mouth twice dailylisinopril 20 MG tablet Indications: Essential hypertension, benign TAKE 1 TABLET BY MOUTH TWICE A DAY 180 tablet 3 07/02/2024 ActiveComment on above:Take 20 mg by mouth twice daily.24 hr metFORMIN hydrochloride 500 mg extended release oral tablet (20 sources)BiguanideStart: 70-91-1387eqam 1 tablet by mouth twice daily Metformin 500 mg tablet extended release 24 hr Active 500 MG PO Twice daily January 02, 2025 11:00pm Complies with drug therapyStart: 04-05-2023 End: 36-08-6992oamp 1 tablet by mouth twice dailymetFORMIN XR [...] extended release oral tablet (20 sources)beta-Adrenergic BlockerStart: 62-70-1626sajg 1 tablet by mouth once dailyMetoprolol Succinate 25 mg tablet extended release 24 hr Active 25 MG PO Daily January 02, 2025 11:00pm Complies with drug therapyStart: 01-17-2023 End: 49-33-2365xzao 1 tablet by mouth twice dailymetoprolol succinate ER (TOPROL XL) 25 mg 24 hr tablet take 1 tablet by mouth twice a day 180 tablet 3 01/09/2024 ActiveStart: 01-13-2021 End: 89-29-4856objn 1 tablet by mouth twice dailymetoprolol succinate ER (TOPROL XL) 25 mg 24 hr tablet TAKE 1 TABLET BY MOUTH TWICE A DAY 180 tablet 3 01/08/2022 01/14/2023 DiscontinuedStart: 22-53-0783torm 1 tablet by mouth once dailymetoprolol 25 mg ER Tab 25 mg = 1 tab(s), Oral, Daily, # 30 tab(s), Refills(s) 0 Start Date: 09/03/20atus: OrderedComment on above:Take 1 tablet by mouth twice daily.TAKE 1 TABLET BY MOUTH TWICE A DAYTake 1 tablet by mouth two times a day.OZEMPIC 1 mg/dose (4 mg/3 mL) pen (13 sources)Start: 19-55-2837XLGUXPO 1 mg/dose (4 mg/3 mL) pen one time a week. 02/14/2023 ActiveStart: 52-87-2821WMATSIC 1 mg/dose (4 mg/3 mL) pen one time a week. 0 02/14/2023 ActiveComment on above:one time a week.0.25 mg, 0.5 mg dose 1.5 ml semaglutide 1.34 mg/ml pen injector (11 sources)Start: 07-31-0888ylnqac 0.5 mg by subcutaneous injection every week semaglutide (Ozempic, 0.25 or 0.5 MG/DOSE,) 2 MG/1.5ML solution pen-injector Indications: Type 2 diabetes mellitus with hyperglycemia, without long-term current use of insulin ([facility]) Inject 0.5 mgunder the skin 1 (one) time per week 4 each 5 08/10/2023 ActiveSemaglutide (2 sources)Start: 87-93-0882udqtjp 1 mg by subcutaneous injection every week [...] MG/DOSE,) 4 MG/3ML solution pen-injector (4 sources)Start: 64-97-9642wvlrnv 1 mg by subcutaneous injection every week semaglutide (Ozempic, 1 MG/DOSE,) 4 MG/3ML solution pen-injector Indications: Type 2 diabetes mellitus with hyperglycemia, without long-term current use of insulin (HCC) Inject 1 mg under the skin 1 (one) time per week 1 each 08/07/2024 ActiveStart: 20-75-9270qpcioq 1 mg by subcutaneous injection every weeksemaglutide (Ozempic, 1 MG/DOSE,) 4 MG/3ML solution pen-injector Indications: Type 2 diabetes mellitus with hyperglycemia, without long-term current use of insulin (CMS/HCC) Inject 1 mg under the skin 1 (one) time per week 1 each 08/07/2024 ActiveVitamin D3 2000 intl units oral tablet (2 sources)Start: 16-38-3529mgvw 1 tablet by mouth once dailyVitamin D3 2000 intl units oral tablet TAKE 1 TABLET BY MOUTH EVERY DAY Start Date: 09/03/20 Status: Ordered Completed/Discontinued Medications MedicationDrug Class(es)DatesSig (Normalized)Sig (Original)meloxicam 15 mg oral tablet (5 sources)Nonsteroidal Anti-inflammatory DrugStart: 12-25-2024 End: 63-86-6298xfof 1 tablet by mouth once dailyMeloxicam 15 mg tablet Discontinued 15 MG PO Daily January 02, 2025 11:00pm January 07, 2025 10:47am Start: 65-70-3679hmei 1 tablet by mouth once daily at mealtimemeloxicam (Mobic) 15 MG tablet Indications: Plantar fasciitis of right foot Take 1 tablet (15 mg) by mouth Daily Take with food 30 tablet 3 09/07/2024 Activepantoprazole 40 mg delayed release oral tablet (1 source)Proton Pump InhibitorStart: 03-20-2021 End: 60-83-3422bgjl 1 tablet by mouth once daily, then take 6 tablets by mouth in the morningpantoprazole DR (PROTONIX) 40 mg tablet Take 1 tablet by mouth DAILY (6 AM). 30 tablet 0 Discontinued (Course of therapy completed)Comment on above:Take 1 tablet by mouth DAILY (6 AM).perflutren lipid microspheres 1.3 mL in NaCl (PF) 0.9% 10 mL injection (DEFINITY) (20 sources)Start: 06-23-2021 End: 05-81-4752hbnyimwdjj lipid microspheres 1.3 mL in NaCl (PF) 0.9% 10 mL injection (DEFINITY)Start: 06-23-2021 End: 84-49-8915noloxwvybq lipid microspheres 1.3 mL in NaCl (PF) 0.9% 10 mL injection (DEFINITY)Start: 03-19-2021 End: 38-08-9814fzaawhtlif lipid microspheres 1.3 mL in NaCl (PF) 0.9% 10 mL injection (DEFINITY)Start: 03-19-2021 End: 33-37-1655gwnspcacfj lipid microspheres 1.3 mL in NaCl (PF) 0.9% 10 mL injection (DEFINITY)Start: 12-05-2020 End: 17-40-5665iixcluwkwt lipid microspheres 1.3 mL in NaCl (PF) 0.9% 10 mL injection (DEFINITY)Start: 06-03-2020 End: 70-40-3045ytzxfxufit lipid microspheres 1.3 mL in NaCl (PF) 0.9% 10 mL injection (DEFINITY)predniSONE 50 mg oral tablet (3 sources)Start: 01-07-2025 End: 11-78-2059eamy 1 tablet by mouth once dailyPrednisone 50 mg tablet Discontinued 50 MG PO Daily 6 0 January 06, 2025 11:00pm February 08, 2025 9:10amStart: 08-07-2024 End: 29-88-5059vlrg 1 tablet by mouth once dailypredniSONE (Deltasone) 50 MG tablet Indications: Plantar fasciitis of right foot Take 1 tablet (50 mg) by mouth Daily for 6 days 6 tablet 08/07/2024 08/13/2024 ActiveSemaglutide,0.25 or 0.5MG/DOS, (Ozempic, 0.25 or 0.5 MG/DOSE,) 2 MG/3ML solution pen-injector (3 sources)Start: 06-25-2024 End: 97-98-2469Lzsbouebrcd,0.25 or 0.5MG/DOS, (Ozempic, 0.25 or 0.5 MG/DOSE,) 2 MG/3ML solution pen-injector Indications: Type 2 diabetes mellitus with hyperglycemia, without long-term current use of insulin ([facility]) INJECT 0.5 MG UNDER THE SKIN 1 (ONE) TIME PER WEEK 3 mL 5 06/25/2024 08/07/2024 Discontinued Start: 17-47-8362Glkwmzhsdzd,0.25 or 0.5MG/DOS, (Ozempic, 0.25 or 0.5 MG/DOSE,) 2 MG/3ML solution pen-injector Indications: Type 2 diabetes mellitus with hyperglycemia, without long-term current use of insulin (CMS/HCC) INJECT 0.5 MG UNDER THE SKIN 1 (ONE) TIME PER WEEK 3 mL 5 06/25/2024 Andypw346 ml sodium chloride 9 mg/ml prefilled syringe (20 sources)Start: 06-03-2020 End: 45-84-2705qujpih chloride 0.9 % (flush) 10 mL (BD POSIFLUSH) Problems Active Problems Problem ClassificationProblemDateDocumented DateEpisodic/ChronicAnxiety disorders (19 sources)Generalized anxiety disorder; 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: [Generalized anxiety disorder]Onset: 746607-27-2430VeoznsuFjsqrle dysrhythmias (20 sources)Atrial fibrillation; 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: [Unspecified atrial fibrillation] Onset: 170495-84-8281IxdxowjHdmzyjmb mellitus with complications (20 sources)Hyperglycemia due to type 2 diabetes mellitus; 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: [Type 2 diabetes mellitus with hyperglycemia]Onset: 543228-75-8240GbhromhWdqwbvgx mellitus without complication (6 sources)Prediabetes; 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: [Prediabetes]Onset: 14-74-5100Yektsawh Esophageal disorders (20 sources)Gastroesophageal reflux disease without esophagitis; 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: [Gastro-esophageal reflux disease without esophagitis]Onset: 08-10-2023 41-67-4452PeqloakIjzowegrx hypertension (20 sources)Essential (primary) hypertension; 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: [Essential hypertension]Onset: 075430-10-9547CwqzjtzAaqzz disorders and dislocations; trauma-related (2 sources)Derangement of right knee; 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: [Unspecified internal derangement of right knee]02-84-2307PtnhdtnBeyxdxh (4 sources)Onychomycosis due to dermatophyte ; 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: [Tinea unguium] 10-05-6789AprrtgnoRligfyzsjae deficiencies (20 sources)Vitamin D deficiency, unspecified; 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: [Vitamin D deficiency]Onset: 107400-46-9253CaprmxbPpevt aftercare (4 sources)Long-term current use of anticoagulant; 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: [penitentiary (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]Onset: 77-19-4572QuyqindoZjygt aftercare (2 sources)penitentiary (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; 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: [SHANK BONER CURRNT USE ANTICOAGULANTS]Onset: 35-41-3298JqfgcbiuRibps aftercare (2 sources)Postoperative visit; 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: [Encounter for other specified surgical aftercare]39-57-8680RuzgqlezOjmqi and ill-defined heart disease (20 sources)Thrombus of left atrium; 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: [Intracardiac thrombosis, not elsewhere classified]Onset: 119744-38-6525WjjnuqbIqykx and unspecified benign neoplasm (2 sources)Benign neoplasm of colon; 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: [Benign neoplasm of colon, unspecified]Onset: 48-62-1789LvmowhouRjnfr and unspecified benign neoplasm (2 sources)Adenomatous polyp of socjf64-47-4911QgzgpojlWitwz and unspecified benign neoplasm (2 sources)Benign neoplasm of ascending -51-9587MuoonywhUlkyg and unspecified benign neoplasm (2 sources)Benign neoplasm of descending sukao16-56-7266FdahagqmMyfag connective tissue disease (19 sources)Cramp in lower limb; 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: [Cramp and spasm]Onset: 506919-42-2898ZwgvethwRtowh connective tissue disease (2 sources)Pain in hallux; 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: [Pain in left toe(s)]66-21-0680Nfsshumu Other connective tissue disease (9 sources)Plantar fasciitis of right foot; 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: [Plantar fascial fibromatosis]Onset: 371891-70-1922WbouxbkqHkrwq nervous system disorders (2 sources)Difficulty walking; 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: [Difficulty in walking, not elsewhere classified]60-10-1980PknzberNuvgq non-traumatic joint disorders (2 sources)Knee painEpisodicOther non-traumatic joint disorders (4 sources)Pain in right knee; 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: [Right knee pain]69-49-3449Fuwionxu Other nutritional; endocrine; and metabolic disorders (14 sources)Body mass index 30+ - obesity; 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: [Obesity, unspecified] Onset: 755789-13-0723TtlpnquKchxj nutritional; endocrine; and metabolic disorders (7 sources)Obesity caused by energy imbalance; 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: [Class 1 obesity due to excess calories with serious comorbidity and body mass index (BMI) of 34.0 to 34.9 in adult]Onset: 082211-51-2542NfianelRndxl skin disorders (2 sources)Dystrophia unguium; 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: [Nail dystrophy]09-63-3704Fszapppt Residual codes; unclassified (20 sources)Sleep apnea; 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: [Sleep apnea, unspecified]Onset: 996806-74-4611OccqlfpCrkpbszt codes; unclassified (20 sources)Obstructive sleep apnea syndrome; 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: [Obstructive sleep apnea (adult) (pediatric)]Onset: 69-91-9244LpqbswoOyzjjdzf codes; unclassified (1 source)Sleep apnea, unspecified; 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: [SLEEP APNEA UNSPECIFIED] Onset: 41-69-9756EcgrbozCvvgannl codes; unclassified (1 source)Obstructive sleep apnea (adult) (pediatric); 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: [Obstructive sleep apnea syndrome]Onset: 32-95-6539EpwqpjaOmxhrghpkka; intervertebral disc disorders; other back problems (1 source)Other spondylosis with radiculopathy, lumbar region; 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: [OTH SPONDYLS RADICULOPATHY LUMBRGN]Onset: 31-59-9197HrlmseuJxooomj and strains (2 sources)Injury of articular cartilage of right knee joint; 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: [Sprain of other specified parts of right knee, initial encounter]02-08-2025 EpisodicUnclassified (1 source)LOW BACK PAIN, UNSPECIFIED; 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: [LOW BACK PAIN, UNSPECIFIED] Onset: 19-27-9372Tiqthovzsjpi (1 source)Autogenerated ProblemOnset: 373968-92-8468Vwjyuvxvndbj (3 sources)M25.561 - Pain in right kneeUnclassified (1 source)Other persistent atrial fibrillation; 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: [Persistent atrial fibrillation (HCC)]Onset: 08-17-2018 Past or Other Problems Problem ClassificationProblemDateDocumented DateEpisodic/ChronicOther aftercare (17 sources)Long-term current use of drug therapy; 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: [Other intermediate (current) drug therapy]Onset: 532746-78-6393GkplrsvdEctji and unspecified benign neoplasm (4 sources)Personal history of colonic polyps; 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: [PERSONAL HISTORY OF COLONIC POLYPS]Onset: 45-21-7035UiqiipgzVgwdj and unspecified benign neoplasm (1 source)Polyp of colon; 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: [POLYP OF COLON]Onset: 10-12-2021 EpisodicOther and unspecified benign neoplasm (1 source)Benign neoplasm of sigmoid colon; 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: [BENIGN NEOPLASM OF SIGMOID COLON]Onset: 85-50-1570RjqesomhPmsel screening for suspected conditions (not mental disorders or infectious disease) (20 sources)Stool DNA-based colorectal cancer screening positive; 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: [Impaired left ventricular function]Onset: 105087-30-8958OivktnsqMujwtecrs and history of mental health and substance abuse codes (1 source)Personal history of nicotine dependence; 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: [PERSONAL HISTORY OF NICOTINE DEPEND]Onset: 55-69-7424AkeaghqhQgpglhamswy; intervertebral disc disorders; other back problems (4 sources)Radiculopathy, site unspecified; 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: [RADICULOPATHY SITE UNSPECIFIED]Onset: 26-48-2692Dplgwqpu Results Test NameValueInterpretationReference RangeFacilityANES POSTPROC EVALon 69-26-0108DVXT POSTPROC EVALHNO ID: [id number] Author: MARISA DAUGHERTY MD Service: ? Author Type: Anesthesiologist Type: Anesthesia Postprocedure Evaluation Filed: 12/05/2024 16:03 Note Text: POST ANESTHESIA EVALUATION NOTE : 1960 Procedure Summary Date: 12/05/24 Room / Location: [address] [facility] Anesthesia Start: 1038 Anesthesia Stop: [...] December 05, 2024 TIME: 4:03 PM CSN: [id number] PRE-OPon 30-08-8184AYSU PRE-OPHNO ID: [id number] Author: MARISA DAUGHERTY MD Service: ? Author Type: Anesthesiologist Type: Anesthesia Preprocedure Evaluation Filed: 12/05/2024 10:40 Note Text: ANESTHESIOLOGY DAY OF SURGERY NOTE : 1960 Procedure Information Anesthesia Start Date/Time: 12/05/24 1038 Procedure: CARDIOVERSION EXTERNAL ELECTIVE Location: [address] [facility] Surgeons: Jessica Winter MD Estimated [...] and consent discussed: yes. Patient / Responsible Libertarian agrees to proceed: yes Patient / Surrogate [...] December 05, 2024 TIME: 10:38 AM CSN: [id number]h Mansfield HospitalCNCox North 12-05-2024 CNOVOffice Visit (CARDMN) CHRISSYABBEY Martinez ([id number]) 1960 M Date Time Provider Department 12/05/24 7:30 AM TSERING SAENZ CARDMN During your visit today, we recorded the following information about you: Pulse Blood pressure Weight Height 150/minute 143/89 110.2 kg 1.803 m Tsering Saenz APRN.CNP 12/05/2024 8:04 AM Signed [facility] Josi Apodaca Department of Cardiovascular Medicine SECTION OF CARDIAC PACING and ELECTROPHYSIOLOGY OUTPATIENT VISIT DATE December 05, 2024 OUTPATIENT VISIT TYPE ESTABLISHED PRIMARY CARE PHYSICIAN: Michael Spangler (Luis) [address] [place] [address] CHIEF COMPLAINT: Atrial fibrillation HISTORY OF PRESENT [...] WITH RAPID VENTRICULAR RE (more content not included)...NormalParma Community General HospitalComprehensive metabolic 2000 panelon 91-24-2697Cltawqr [Mass/Vol]4.0 g/dLNormal3.9-4.9CThe [facility] Comment on above:Order Comment: Specimen Type: BLOOD SPECIMEN Ordering Facility: [facility] Address: [address] [place], [place] [address]Performed By: #### [id number] #### [facility] CLIA [id number] [address] [place] [address] [place] AMERICAALP [Catalytic activity/Vol] 44 U/WLiuksu70-451WjvlckohhParma Community General HospitalComup health system on above:Order Comment: Specimen Type: BLOOD SPECIMEN Ordering Facility: [facility] Address: [address] [place], [place] [address]Performed By: #### [id number] #### [facility] CLIA [id number] [address] [place] [address] [place]ALT [Catalytic activity/Vol] 41 U/THbsmav46-22XpchyhapcParma Community General HospitalComment on above:Order Comment: Specimen Type: BLOOD SPECIMEN Ordering Facility: [facility] Address: [address] [place], [place] [address]Performed By: #### [id number] #### [facility] CLIA [id number] [address] [place] [address] [place] AMERICAAnion gap [Moles/Vol]12 mmol/LNormal8-15[facility] on above:Order Comment: Specimen Type: BLOOD SPECIMEN Ordering Facility: [facility] Address: [address] [place], [place] [address]Performed By: #### [id number] #### [facility] CLIA [id number] [address] [place], [place] [id number] [place] AMERICAAST [Catalytic activity/Vol] 25 U/NLoitrd37-65QccsojuakClinton Memorial Hospital on above:Order Comment: Specimen Type: BLOOD SPECIMEN Ordering Facility: [facility] Address: [address] [place], [place] [address]Performed By: #### [id number] #### [facility] CLIA [id number] [address] [place], [place] [address] [place] AMERICABilirubin [Mass/Vol]0.6 mg/dLNormal0.2-1.3CWyandot Memorial Hospital on above:Order Comment: Specimen Type: BLOOD SPECIMEN Ordering Facility: [facility] Address: [address] [place], [place] [address]Performed By: #### [id number] #### [facility] CLIA [id number] [address] [place] [address] [place] AMERICACalcium [Mass/Vol]9.0 mg/dL Normal8.5-10.2CWyandot Memorial Hospital on above:Order Comment: Specimen Type: BLOOD SPECIMEN Ordering Facility: [facility] Address: [address] [place], [place] [address]Performed By: #### [id number] #### [facility] CLIA [id number] [address] [place], [place] [address] [place] AMERICAChloride [Moles/Vol]105 mmol/SQdllnj74-214VzwfgeeynClinton Memorial Hospital on above:Order Comment: Specimen Type: BLOOD SPECIMEN Ordering Facility: [facility] Address: [address] [place], [place] [address]Performed By: #### [id number] #### [facility] CLIA [id number] [address] [place], [place] [address] [place] AMERICACO2 [Moles/Vol]25 mmol/L Bqbtwt42-73RtzuakiieClinton Memorial Hospital on above:Order Comment: Specimen Type: BLOOD SPECIMEN Ordering Facility: [facility] Address: [address] [place], [place] [address]Performed By: #### [id number] #### [facility] [place] [id number] [address] [place] [address] [place] AMERICACreatinine [Mass/Vol]1.00 mg/dLNormal0.73-1.22[facility] on above:Order Comment: Specimen Type: BLOOD SPECIMEN Ordering Facility: [facility] Address: [address] [place], [place] [address]Performed By: #### [id number] #### [facility] [place] [id number] [address] [place] [address] [place] AMERICAeGFRcr SerPlBld CKD-EPI 2020 85 mL/min/1.73m???Normal>=60[facility] on above:Order Comment: Specimen Type: BLOOD SPECIMEN Ordering Facility: [facility] Address: [address] [place] [address]Result Comment: Estimated Glomerular Filtration Rate (eGFR) is [...] not accurately reflect actual GFR.Performed By: #### 84644-6 #### [facility] CLIA [id number] [address] [place] [address] [place] STATES OF AMERICAGlucose [Mass/Vol]143 mg/dL Yogo19-53CmkstxbkfClinton Memorial Hospital on above:Order Comment: Specimen Type: BLOOD SPECIMEN Ordering Facility: [facility] Address: [address] [place], [place] [address]Result Comment: The [place] Diabetes Association (ADA) provides guidance for cutoff [...] Standards of Medical Care in Diabetes 2016, [place] [employer]. Diabetes Care. 2016.39(Suppl 1).Performed By: #### 73306-2 #### [facility] CLIA [id number] [address] [place] [address] [place] OF AMERICAPotassium [Moles/Vol]4.3 mmol/LNormal3.7-5.1CWyandot Memorial Hospital on above:Order Comment: Specimen Type: BLOOD SPECIMEN Ordering Facility: [facility] Address: [address] [place], [place] [address]Performed By: #### 39086-0 #### [facility] IA [id number] [address] [place] [address] [place] AMERICAProtein [Mass/Vol]6.1 g/dL Low6.3-8.0[facility] on above:Order Comment: Specimen Type: BLOOD SPECIMEN Ordering Facility: [facility] Address: [address] [place], [place] [address]Performed By: #### 31908-9 #### [facility] CLIA [id number] [address] [place] [address] [place] AMERICASodium [Moles/Vol]142 mmol/L Lmxnfc823-358BozufdekuClinton Memorial Hospital on above:Order Comment: Specimen Type: BLOOD SPECIMEN Ordering Facility: [facility] Address: [address] [place], [place] [address]Performed By: #### 54596-4 #### [facility] CLIA [id number] [address] [place], [place] [address] [place] OF AMERICAUrea nitrogen [Mass/Vol]23 mg/dLNormal9-24[facility] on above:Order Comment: Specimen Type: BLOOD SPECIMEN Ordering Facility: [facility] Address: [address] [place], [place] [address]Performed By: #### 52824-4 #### [facility] CLIA [id number] [address] [place] [address] [place] [address] [place] CJW MEDICAL CENTERECG COMPLETEon 90-82-3462AZE COMPLETEVentricular Rate : 75 BPM Atrial Rate : 75 BPM P-R Interval : 182 ms QRS Duration : 96 ms Q-T Interval : 378 ms QTC Calculation(Bazett) : 422 ms Calculated P [place] : 68 degrees Calculated R [place] : 41 degrees Calculated T [place] : 58 degrees NORMAL SINUS RHYTHM NORMAL ECG Confirmed by TITA WALDEN MD ([id number]) on 12/31/2024 9:09:13 PM NAME : CHRISSYABBEY PID : [id number] : 1960 Gender : Male Race : ORD : [id number] Procedure Date : Dec 05 2024 11:02:54 Edit Date : Dec 31 2024 21:09:19 Diagnosis: NORMAL SINUS RHYTHM NORMAL ECG Confirmed by TITA WALDEN MD ([id number]) on 12/31/2024 9:09:13 PM Test Reason : Post-OP Location : 23 : [facility] SHAYAN-022 Overread By : TITA WALDEN MD Edited By : TITA WALDEN MD Referred By : , Acquired by : [id number],NormalCherrington Hospital COMPLETEVentricular Rate : 153 BPM QRS Duration : 96 ms Q-T Interval : 290 ms QTC Calculation(Bazett) : 463 ms Calculated R [place] : 35 degrees Calculated T [place] : 57 degrees ATRIAL FLUTTER WITH VARIABLE BLOCK NONSPECIFIC ST ABNORMALITY ABNORMAL ECG Confirmed by MD KARLA, PhD, KATHERINE ([id number]) on 02/02/2025 3:24:59 PM NAME : ABBEY LOWE PID : [id number] : 1960 Gender : Male Race : ORD : [id number] Procedure Date : Dec 05 2024 07:11:58 [...] : JESSICA WINTER Acquired by : Marisol AMBRIZTrinity Health System East CampusGlomerular filtration rate [Volume Rate/Area] in Serum, Plasma or Blood by CreatinineOrdered By: Jessica Winter on 15-69-2700Aljigzyzsx filtration rate [Volume Rate/Area] in Serum, Plasma or Blood by Uiloypaznk92 mL/min/1.73m???>=60J.W. Ruby Memorial HospitalComment on above:Estimated Glomerular Filtration Rate (eGFR) [...] Serum or PlasmaOrdered By: Jessica Winter on 98-79-0584Zltwner [Mass/Vol]143 mg/iCWuvq04-77ZocbvkcofJ.W. Ruby Memorial HospitalComment on above: The [place] Diabetes Association (ADA) provides guidance for cutoff [...] diabetes.Reference: Standardsof Medical Care in Diabetes 2016, [place] Diabetes Association. Diabetes Care. 2016.39(Suppl 1).HISTORY PHYSICALon 68-06-1476JCASEZC PHYSICALHNO ID: [id number] Author: TSERING SAENZ APRN.ENRICHMENT TEACHER Service: ? Author Type: Nurse Practitioner Type: H&P Filed: 12/05/2024 08:04 Note Text: [facility] [place] Josi Apodaca Department of Cardiovascular Medicine SECTION OF CARDIAC PACING and ELECTROPHYSIOLOGY OUTPATIENT VISIT DATE December 05, 2024 OUTPATIENT VISIT TYPE ESTABLISHED PRIMARY CARE PHYSICIAN: Michael Spangler ([facility]) [address] [place] [address] CHIEF COMPLAINT: Atrial fibrillation HISTORY OF PRESENT [...] The patient has a (more content not included)...NormalParma Community [facility] Laboratory - Chemistry and Chemistry - challengeOrdered By: Jessica Winter on 87-46-1440Paunrrr [Mass/Vol]4.0 g/dL3.9-4.9J.W. Ruby Memorial HospitalALP [Catalytic activity/Vol]44 U/J07-462YjrpcvgazJ.W. Ruby Memorial HospitalALT [Catalytic activity/Vol]41 U/I50-01NdrzxocubJ.W. Ruby Memorial HospitalAST [Catalytic activity/Vol]25 U/N71-29OhnkbsholJ.W. Ruby Memorial HospitalBilirubin [Mass/Vol]0.6 mg/dL0.2-1.3FDayton VA Medical CenterCalcium [Mass/Vol]9.0 mg/dL8.5-10.2FDayton VA Medical CenterChloride [Moles/Vol]105 mmol/L 98-107J.W. Ruby Memorial HospitalCO2 [Moles/Vol]25 mmol/Z78-65VcxzjchjbJ.W. Ruby Memorial HospitalCreatinine [Mass/Vol]1.00 mg/dL0.73-1.22J.W. Ruby Memorial HospitalPotassium [Moles/Vol]4.3 mmol/L3.7-5.1FFisher-Titus Medical Centerodium [Moles/Vol]142 mmol/E610-798SyptntiblJ.W. Ruby Memorial HospitalUrea nitrogen [Mass/Vol]23 mg/dL9-24[facility] Protein [Mass/volume] in Serum or PlasmaOrdered By: Jessica Winter on 12-05-2024 Protein [Mass/Vol]6.1 g/dLLow6.3-8.0Wood County Hospitalerum or plasma anion gap determinationOrdered By: Jessica Winter on 04-45-1280Duszp gap [Moles/Vol]12 mmol/L8-15J.W. Ruby Memorial HospitalCNPNon 37-28-0632MAHR Telephone (CARDMN) CHRISSYABBEY ([id number]) 1960 M Date Time Provider Department 11/29/24 [...] Reason for Visit: Received Outside Medical Records [3578] Cmt: EKG Prescriptions as of 11/29/2024 - [...] [Z00.6]03/18/2021 Encounter Status:Closed by HAROON BARBER on 11/29/24[facility] 32-55-0582GBKIWiadmoonf (EPSMN) ABBEY LOWE ([id number]) 1960 M Date Time Provider Department 11/28/24 [...] (HCC) [I48.19] Order(s):ECG COMPLETE [ECG01] Order #: [id number] FUTURE Prescriptions as of 11/28/2024 - apixaban [...] Encounter Status:Closed by MONICA DANIEL RN on 11/28/24[facility] 12-LEADon 42-69-[place] [address] Electrocardiograph Report Signed Patient: ABBEY LOWE MR#: [id number] : 1960 Acct:[id number] Age/Sex: 64 / M ADM Date: 11/26/24 Loc: CARD Attending Dr: Non-Staff Physician Thomas Ordering Physician: Paris BlasStaff Thomas Date of Service: 11/26/24 Procedure(s): ECG 12 lead Accession Number(s): [id number] cc: [facility] Test Date: 2024-11-26 Pat Name: ABBEY LOWE Department: Room: - Gender: Male Manager Corporate Responsibility: : 1960 Requested By: [id number] Order Number: [id number] Chhaya MD: REBEKAH ADDISON Measurements Intervals [place] Rate: 127 P: SD: QRS: 39 QRSD: 109 T: 67 QT: [...] 11/28/24 1549 11/28/24 1549 DD/ 1050 TD/TT: Social Secretary:LIANETadiologsathish, Radiologist, - 11/28/2024 [place] [address] Electrocardiograph Report Signed Patient: ABBEY LOWE MR#: [id number] : 1960 Acct:[id number] Age/Sex: 64 / M ADM Date: 11/26/24 Loc: CARD Attending Dr: ParisStaff Physician Guzman Ordering Physician: Donald Blas M.D. Date of Service: 11/26/24 Procedure(s): ECG 12 lead Accession Number(s): [id number] cc: [facility] Test Date: 2024-11-26 Pat Name: ABBEY LOWE Department: Room: - Gender: Male Manager Corporate Responsibility: : 1960 Requested By: [id number] Order Number: [id number] Reading MD: REBEKAH ADDISON Measurements Intervals [place] Rate: 127 P: SD: QRS: 39 QRSD: 109 T: 67 QT: [...] 11/28/24 1549 11/28/24 1549 DD/ 1050 TD/TT: Social Secretary: SAGE Morley 12-LEADOrdered By: Radiologist Radiology on 84-77-2977KJKO Workable Work Phone: cNPNon [phone] (CARDMN) ABBEY LOWE ([id number]) 1960 M Date Time Provider Department 11/26/24 JESSICA WINTER CARDMN During your visit today, we recorded the following information about you: Yara Sutton 11/26/2024 11:16 AM Signed Patients is calling. is back in [place] and would like to get an EKG done. Apt in Mar. Order faxed to [facility] at [phone] Yara Sutton 11/26/2024 3:09 PM Signed EKG [...] day. He will need to bring a transit driver and be NPO for at least 8 hours prior. Patient verbalized understanding, DCC request sent. Haroon Barber RN Allergies As of Date: 11/26/2024 Noted Allergy Reaction PENICILLIN 07/18/2018 16 - Unknown Date Reviewed: 03/08/2023 Reviewed by: Miri uCnha RN - Fully Assessed Reason for Visit: [...] [Z00.6]03/18/2021 Encounter Status:Closed by YARA SUTTON on 11/26/24[facility] 12-LEADon 66-06-0441Qwgvuvfhj Study observation (narrative)NOMS HealthcareALL CBC WITH AUTO DIFFon 05-28-4742KCRLBMFYD ABSOLUTE AUTO0.1NOMS HealthcareBasophils/100 WBC (Bld)0.8 %0.2 - 2.0 %NOMS HealthcareEosinophils/100 WBC (Bld)2.7 %0.9 - 7.0 %NOMS HealthcareErythrocyte distribution width (RBC) [Ratio]13.4 %11.0 - 15.0 %NOMS HealthcareHematocrit (Bld) [Volume fraction]45.1 %42.0 - 54.0 %NOM HealthcareHemoglobin (Bld) [Mass/Vol]14.8 g/dL14.0 - 18.0 g/dLNOOR HealthcareIMMATURE GRANULOCYTES ABS AUTO0.02NOMS HealthcareImmature granulocytes/100 WBC (Bld)0.3 %0.0 - 0.5 %NOM HealthcareInterpretation and review of laboratory resultsAbnormalNOOR HealthcareLYMPHOCYTES ABSOLUTE AUTO1.8 NOM HealthcareLymphocytes/100 WBC (Bld)28 %20.5 - 60.0 %[facility] HospitalH (RBC) [Entitic mass]27.7 pg25.9 - 34.0 pgNOCoxHealthHC (RBC) [Mass/Vol] 32.8 g/dL29.9 - 35.2 g/dLBarnes-Jewish HospitalV (RBC) [Entitic vol]84.3 fL80.0 - 94.0 fLFILLMORE COMMUNITY MEDICAL CENTER HealthcareMONOCYTES ABSOLUTE AUTO0.6NOOR HealthcareMonocytes/100 WBC (Bld)8.8 %1.7 - 12.0 %NOM HealthcareNEUTROPHILS ABSOLUTE AUTO3.9[facility] Neutrophils/100 WBC (Bld)59.4 %43.0 - 75.0 %NOM HealthcarePlatelet mean volume (Bld) [Entitic vol]9.2 fLLow9.5 - 13.5 fLSt. Luke's HospitalTBH EO #0.2NOMS HealthcareTBH [id number] HealthcareTB RBC5.35NOMS HealthcareTBH WBC6.6NOMS HealthcareCLINISYNCNOMS HealthcareFollow-Upon [id number] Abbey Lowe 1960 M Date Provider Department Center 05/30/2024 202-BLAYNE GUERIN [facility] SLEEP [facility] Family History Problem Relation Age of Onset Heart disease Mother Diabetes Father Hypothyroidism Father Heart disease Father COPD Brother Diabetes Brother Family Status - Relation Status Age at Mother Father Brother Level of Service:15797 [place] OFFICE/OUTPATIENT ESTABLISHED LOW MDM 20 MIN Reason for Visit and Comments: Sleep Apnea [348] - 1 year follow up. Machine is working well and sleeping great.[facility] Medical CenterCNPNon 28-88-9945NCYIEpsvrmadi (CARDMN) ABBEY LOWE ([id number]) 1960 Date Time Provider Department 05/21/24 JESSICA WINTER CARDMN During your visit today, we recorded the following information about you: Yara Sutton 05/21/2024 2:36 PM Signed May 21, 2024 Patient Contact Number: [phone] (home) [phone] (cell) Patient last seen within the last [...] Fully Assessed Reason for Visit: Patient Question [7052] Prescriptions as of 05/21/2024 - metoprolol succinate [...] [Z00.6]03/18/2021 Encounter Status:Closed by HAROON BARBER on 05/21/24[facility] HEMOGLOBIN A1Con 86-85-0620Rnhsrhg [Mass/Vol]166 mg/dLNOOR VxjqwoayrjIsQ7v (Bld) [Mass fraction]7.4 %High4.5 - 6.2 %NOMS HealthcareComment on above:ADA RECOMMENDED LIMIT 4.0 - 6.0 ADA THERAPEUTIC TARGET < 7.0 ACTION SUGGESTED > 7.0 Interpretation and review of laboratory resultsAbnormalNOOR HealthcareCLINISYNC NOMS HealthcareECG 12 leadon 50-75-2197Snmrmwezppb Rate : 70 BPM Atrial Rate : 70 BPM P-R Interval : 152 ms QRS Duration : 100 ms Q-T Interval : 386 ms QTC Calculation(Bazett) : 416 ms Calculated P [place] : -92 degrees Calculated R [place] : 18 degrees Calculated T [place] : 30 degrees UNUSUAL P AXIS, POSSIBLE ECTOPIC ATRIAL RHYTHM ABNORMAL ECG Confirmed by fellow SANTOS BELLA MD ([id number]) on 03/21/2023 10:43:02 AM Confirmed by MD KARLA, PhD, KATHERINE ([id number]) on 03/21/2023 1:43:16 PM NAME : ABBEY LOWE PID : [id number] : 1960 Gender : Male Race : ORD : [id number] Procedure Date : Mar 08 2023 09:28:38 Edit Date : Mar 21 2023 13:43:17 Diagnosis: UNUSUAL P AXIS, POSSIBLE ECTOPIC ATRIAL RHYTHM ABNORMAL ECG Confirmed by fellow SANTOS BELLA MD ([id number]) on 03/21/2023 10:43:02 AM Confirmed by MD [...] QTC Calculation(Bazett) : 416 ms Calculated P [place] : -92 degrees Calculated R [place] : 18 degrees Calculated T [place] : 30 degrees UNUSUAL P AXIS, POSSIBLE ECTOPIC ATRIAL RHYTHM ABNORMAL ECG Confirmed by fellow SANTOS BELLA MD ([id number]) on 03/21/2023 10:43:02 AM Confirmed by MD KARLA, PhD, KATHERINE ([id number]) on 03/21/2023 1:43:16 PM NAME : ABBEY LOWE PID : [id number] : 1960 Gender : Male Race : ORD : [id number] Procedure Date : Mar 08 2023 09:28:38 Edit Date : Mar 21 2023 13:43:17 Diagnosis: UNUSUAL P AXIS, POSSIBLE ECTOPIC ATRIAL RHYTHM ABNORMAL ECG Confirmed by fellow SANTOS BELLA MD ([id number]) on 03/21/2023 10:43:02 AM Confirmed by MD KARLA, PhD, KATHERINE ([id number]) on 03/21/2023 1:43:16 PM Test Reason : Location : 314 : 14 j-4 Overread By : MD KARLA, PhD,KATHERINE Edited By : MD KARLA, PhD,KATHERINE Referred By : , Acquired by : MAXI LOCK [facility] 12 leadOrdered By: Radiologist Radiology on 73-15-2195OSZW Workable Work Phone: Reminderson [phone] From: Taylor Bonner LPN To: [facility] - Clinical; Sent: 11/17/2022 09:49:20 EDT Show up: 09/21/2027 07:00:00 EDT Subject: colonoscopy recall Due Date/Time: 10/21/2027 07:00:00 EDT Reminder/Recall Patient due for surveillance colonoscopy 10/21/2027.[facility] HospitalPathology Noteon 88-68-0157Opcvfwyny Note [id number]#1.00CD:127[facility] HospitalOutside Colonoscopyon 93-16-7443Dzrhwxi Colonoscopy [id number]#1.00CD:[address] [place], [place] [address]Pre-Certification Formon 62-95-9474Jnh-Certification Form [id number]#1.00CD:[address] [place], [place] [address]Consent for Procedure/Surgeryon 33-78-1028Zzipzkq for Procedure/Surgery [id number]#1.00CD:[address] [place], [place] [address]Ambulatory Visit Summaryon 07-46-4564Mmwbdrfamy Visit Summary ABBEY LOWE :1960 Visit Date:09/22/2022 [...] adenoma of colon Tubulovillous adenoma of colon [facility] HospitalGLYCOHEMOGLOBIN A1Con 02-16-2022 ADA RECOMMENDATIONSEE BELOWRegency Hospital CompanyComment on above:Result Comment: ADA RECOMMENDED LIMIT 4.0 - 6.0 ADA THERAPEUTIC TARGET < 7.0 ACTION SUGGESTED > 7.0Performed By: #### A1C #### [facility] [address] [address] [address] Neelima BansalGlucose [Mass/Vol]186 mg/dLNoMercy Health West HospitalComment on above:Performed By: #### A1C #### [facility] [address] [address] [address] Neelima BansalHbA1c (Bld) [Mass fraction]8.1 %Critically high4.5-6.2The [facility] HospitalComment on above:Performed By: #### A1C #### [facility] [address] [address] [address] Neelima BansalXR LSPINE 2_3 VIEWSon 75-27-3973MG LSPINE 2_3 VIEWSEXAMINATION: XR LSPINE 2_3 VIEWS [...] Electronically authenticated by: EMBER LOPEZ Date: 2021-10-01 21:09NoClermont County Hospital AUTO DIFFon 56-69-7349XUER #0.0 103/ulNormal0.0-0.1The [facility] HospitalComment on above:Performed By: #### A1C #### [facility] [address] [place] [address] Dr. Neelima BansalBasophils/100 WBC (Bld)0.6 %Normal0.2-2.0[facility] Comment on above:Performed By: #### A1C #### [facility] [address] [address] [address] Neelima Delatorre #0.2 103/ulNormal0.0-0.7The [facility] HospitalComment on above: Performed By: #### A1C #### [facility] [address] [place] [address] Dr. Neelima Wadeosinophils/100 WBC (Bld)2.3 %Normal0.9-7.0[facility] Comment on above:Performed By: #### A1C #### [facility] [address] [address] [address] Neelima Waderythrocyte distribution width (RBC) [Ratio]13.6 %Jebnkt96.0-15.0 The [facility] HospitalComment on above:Performed By: #### A1C #### [facility] [address] [place] [address] Dr. Neelima BansalHematocrit (Bld) [Volume fraction]44.6 %Zpelir46.0-54.0The Hi HospitalComment on above:Performed By: #### A1C #### [facility] [address] [address] [address] Neelima BansalHemoglobin (Bld) [Mass/Vol]14.6 g/pETthnsr85.0-18.0The [facility] HospitalComment on above:Performed By: #### A1C #### [facility] [address] [address] [address] Neelima Russo #0.01 10e3/ulNormal0.00-0.03The [facility] HospitalComment on above:Performed By: #### A1C #### [facility] [address] [place] [address] Dr. Neelima Russo %0.2 %Normal0.0-0.5The [facility] HospitalComment on above: Performed By: #### A1C #### [facility] [address] [place] [address] Dr. Neelima Hargrove #1.7 103/ulNormal1.2-3.8The [facility] HospitalComment on above:Performed By: #### A1C #### [facility] [address] [place] [address] Dr. Neelima Robleshocytes/100 WBC (Bld)26.9 %Sdosic42.5-60.0The [facility] HospitalComment on above:Performed By: #### A1C #### [facility] [address] [place] [address] Dr. Neelima VarelaUAL DIFF REQNONormalThe [facility] HospitalComment on above: Performed By: #### A1C #### [facility] [address] [place] [address] Dr. Neelima Alonso (RBC) [Entitic mass]28.2 zvNasjhs44.9-34.0The [facility] HospitalComment on above:Performed By: #### A1C #### [facility] [address] [place] [address] Dr. Neelima Alonso (RBC) [Mass/Vol]32.7 g/rZPknlwv29.9-35.2The [facility] HospitalComment on above:Performed By: #### A1C #### [facility] [address] [address] [address] Neelima AlonsoV (RBC) [Entitic vol]86.1 zSIdhtrp49.0-94.0The [facility] HospitalComment on above:Performed By: #### A1C #### [facility] [address] [address] [address] Neelima Dickinson #0.6 103/ulNormal0.3-0.8The [facility] HospitalComment on above:Performed By: #### A1C #### [facility] [address] [address] [address] Neelima Juneocytes/100 WBC (Bld)9.8 %Normal1.7-12.0[facility] on above:Performed By: #### A1C #### [facility] [address] [place] [address] Dr. Neelima Lopez #3.9 103/ulNormal1.4-6.5The [facility] HospitalComment on above:Performed By: #### A1C #### [facility] [address] [place] [address] Dr. Neelima Vazquezutrophils/100 WBC (Bld)60.2 %Hamxjr01.0-75.0The [facility] HospitalComment on above:Performed By: #### A1C #### [facility] [address] [place] [address] Dr. Neelima Coollet mean volume (Bld) [Entitic vol]9.4 fLCritically low 9.5-13.5The [facility] HospitalComment on above:Performed By: #### A1C #### [facility] [address] [place] [address] Dr. Neelima BansalPLT198 103/foPngvsn788-384Tzb [facility] HospitalComment on above: Performed By: #### A1C #### [facility] [address] [place] [address] Dr. Neelima BansalRBC5.18 106/ulNormal4.70-6.10The [facility] Citizens Hospitalment on above:Performed By: #### A1C #### [facility] [address] [address] [address] Neelima BansalWBC6.4 103/ulNormal4.0-11.0The [facility] on above: Performed By: #### A1C #### [facility] [address] [address] [address] Neelima BansalGLYCOHEMOGLOBIN A1Con 11-50-1665XRL RECOMMENDATIONSEE BELOWNoCleveland Clinic Lutheran HospitalComup health system on above:Result Comment: ADA RECOMMENDED LIMIT 4.0 - 6.0 ADA THERAPEUTIC TARGET < 7.0 ACTION SUGGESTED > 7.0Performed By: #### A1C #### [facility] [address] [address] [address] Neelima BansalGlucose [Mass/Vol]146 mg/dLNoMercy Health West HospitalComment on above:Performed By: #### A1C #### [facility] [address] [address] [address] Neelima BansalHbA1c (Bld) [Mass fraction]6.7 %Critically high4.5-6.2Kettering HealthComment on above:Performed By: #### A1C #### [facility] [address] [address] [address] Neelima BansalLIPID PROFILEon 93-94-5632VSAY-HDL RATIO NORMSEE [facility] HospitalComup health system on above:Result Comment: 3.3 - 4.4 LOW RISK 4.4 - 7.1 AVERAGE RISK 7.1 - 11.0 MODERATE RISK >11.0 HIGH RISKPerformed By: #### LIVER, LIPID, BMP, TSH #### [facility] [address] [address] [address] Neelima BansalCholesterol [Mass/Vol]161 mg/dLNormal<=200[facility] Comment on above:Performed By: #### LIVER, LIPID, BMP, TSH #### [facility] [address] [address] [address] Neelima BansalCholesterol in HDL [Mass/Vol]29 mg/dLCritically qzn96-08IswKettering HealthComment on above:Performed By: #### LIVER, LIPID, BMP, TSH #### [facility] [address] [address] [address] Neelima Mcallisteresterol in LDL [Mass/Vol]98.8 mg/dLRegency Hospital CompanyComup health system on above:Performed By: #### LIVER, LIPID, BMP, TSH #### [facility] [address] [place] [address] Dr. Neelima Mckeon.total/Cholesterol in HDL [Mass ratio]5.6 {ratio} NormalThe [facility] HospitalComment on above:Performed By: #### LIVER, LIPID, BMP, TSH #### [facility] [address] [place] [address] Dr. Neelima Peguero NORMAL> or = 60 mg/dl - LOW CARDIOVASCULAR RISK <40 mg/dl - HIGH CARDIOVASCULAR RISKNoMercy Health West HospitalComment on above:Performed By: #### LIVER, LIPID, BMP, TSH #### [facility] [address] [place] [address] Dr. Neelima Kinsey CALC NORMALSEE BELOWRegency Hospital CompanyComment on above:Result Comment: <100 mg/dl OPTIMAL 100 - 129 mg/dl NEAR OR ABOVE OPTIMAL 130 - 159 mg/dl BORDERLINE HIGH 160 - 189 mg/dl HIGH >190 mg/dl VERY HIGH Performed By: #### LIVER, LIPID, BMP, TSH #### [facility] [address] [place] [address] Dr. Neelima BansalTriglyceride [Mass/Vol]166 mg/dLCritically high<=150Kettering HealthComup health system on above:Performed By: #### LIVER, LIPID, BMP, TSH #### [facility] [address] [place] [address] Dr. Neelima CrossLDL CALC33.2 mg/dLRegency Hospital CompanyComment on above: Performed By: #### LIVER, LIPID, BMP, TSH #### [facility] [address] [place] [address] Dr. Neelima Corrigan PROFILEon 68-37-5421Ccnkarm [Mass/Vol]3.7 g/dLNormal3.4-5.0 The [facility] HospitalComment on above:Performed By: #### LIVER, LIPID, BMP, TSH #### [facility] [address] [place] [address] Dr. Neelima BansalAlbumin/Globulin [Mass ratio]1.1 {ratio}NormalThe [facility] HospitalComment on above:Performed By: #### LIVER, LIPID, BMP, TSH #### [facility] [address] [place] [address] Dr. Neelima Aparicio [Catalytic activity/Vol]42 U/LCritically mdq20-956Vyx [facility] HospitalComment on above:Performed By: #### LIVER, LIPID, BMP, TSH #### [facility] [facility] [address] [place] [address] Dr. Neelima Stubbs [Catalytic activity/Vol]58 U/YQgylhz20-32Ldi [facility] HospitalComment on above:Performed By: #### LIVER, LIPID, BMP, TSH #### [facility] [address] [address] [address] Neelima BansalAST [Catalytic activity/Vol]24 U/NCvrprr35-76Pxc [facility] Hospitalment on above:Performed By: #### LIVER, LIPID, BMP, TSH #### [facility] [address] [address] [address] Neelima Metzger, CONJUGATED0.1 mg/dLNormal0.0-0.2[facility] Comment on above:Performed By: #### LIVER, LIPID, BMP, TSH #### [facility] [address] [place] [address] Dr. Neelima Cherryirubin [Mass/Vol]0.4 mg/dLNormal0.2-1.0[facility] Comment on above:Performed By: #### LIVER, LIPID, BMP, TSH #### [facility] [address] [place] [address] Dr. Neelima BansalGlobulin (S) [Mass/Vol]3.4 g/dLNormalThe [facility] HospitalComment on above:Performed By: #### LIVER, LIPID, BMP, TSH #### [facility] [address] [address] [address] Neelima BansalProtein [Mass/Vol]7.1 g/dLNormal6.4-8.2[facility] Comment on above:Performed By: #### LIVER, LIPID, BMP, TSH #### [facility] [address] [address] [address] Neelima BansalPROF CHEM 8 (BAS METB)on 55-25-9119Zxofu gap [Moles/Vol]10.8 mmol/LNormalThe [facility] HospitalComment on above:Performed By: #### LIVER, LIPID, BMP, TSH #### [facility] [address] [place] [address] Dr. Neelima BansalCalcium [Mass/Vol]8.5 mg/dLNormal8.5-10.1[facility] Comment on above:Performed By: #### LIVER, LIPID, BMP, TSH #### [facility] [address] [place] [address] Dr. Neelima BansalChloride [Moles/Vol]104 mmol/RQplhek47-058ZfnKettering Health Comment on above:Performed By: #### LIVER, LIPID, BMP, TSH #### [facility] [address] [place] [address] Dr. Neelima BansalCO2 [Moles/Vol]29.4 mmol/NFpnxup55.0-32.0[facility] Comment on above:Performed By: #### LIVER, LIPID, BMP, TSH #### [facility] [address] [place] [address] Dr. Neelima BansalCreatinine [Mass/Vol]1.01 mg/dLNormal0.70-1.30The [facility] HospitalComment on above:Performed By: #### LIVER, LIPID, BMP, TSH #### [facility] [address] [place] [address] Dr. Ortez ChangEGFR-AF RUSSIAN>60Normal>=60The [facility] HospitalComment on above:Performed By: #### LIVER, LIPID, BMP, TSH #### [facility] [address] [address] [address] Neelima WadeGFR-NON AF RUSSIAN>60Normal>=60The [facility]ment on above:Performed By: #### LIVER, LIPID, BMP, TSH #### [facility] [address] [place] [address] Dr. Neelima BansalGlucose [Mass/Vol]136 mg/dLCritically nnwb21-377Wjl [facility] HospitalComment on above:Performed By: #### LIVER, LIPID, BMP, TSH #### [facility] [address] [place] [address] Dr. Neelima BansalPotassium [Moles/Vol]4.2 mmol/LNormal3.5-5.1[facility] Comment on above:Performed By: #### LIVER, LIPID, BMP, TSH #### [facility] [address] [place] [address] Dr. Neelima BansalSodium [Moles/Vol]140 mmol/HTeqcde956-857Dng [facility] Comment on above:Performed By: #### LIVER, LIPID, BMP, TSH #### [facility] [address] [place] [address] Dr. Neelima BansalUrea nitrogen [Mass/Vol]21.0 mg/dLCritically high7.0-18.0The [facility] HospitalComment on above:Performed By: #### LIVER, LIPID, BMP, TSH #### [facility] [address] [place] [address] Dr. Neelima Guzman nitrogen/Creatinine [Mass ratio]20.8 mg/mgNormalThe [facility] HospitalComment on above:Performed By: #### LIVER, LIPID, BMP, TSH #### [facility] [address] [place] [address] Dr. Neelima Simms 53-63-3011QNU0.401 uIU/mLNormal0.358-3.740[facility] HealthComment on above:Performed By: #### LIVER, LIPID, BMP, TSH #### [facility] [address] [place] [address] Dr. Neelima ENGEL [facility] HospitalComment on above: Result Comment: <0.34 UIU/ml HYPERTHYROID 0.34-5.60 UIU/ml EUTHYROID >5.60 UIU/ml HYPOTHYROIDPerformed By: #### LIVER, LIPID, BMP, TSH #### [facility] [address] [place] [address] Dr. Neelima BansalVITAMIN D 25 OHon 68-42-8910DHS D 25-OH54.0 ng/mLNBellevue HospitalComment on above:Performed By: #### PSASC, VITAD #### [facility] [address] [place] [address] Dr. Neelima PRATHERSESophia [facility] HospitalComment on above: Result Comment: <20 ng/mL Vit D deficient 20 - <30 ng/mL Vit D insufficient 30 - 100 ng/mL Vit D sufficient >100 ng/mL Potential ToxicityPerformed By: #### PSASC, VITAD #### [facility] [address] [place] [address] Dr. Neelima BansalCardiovascular Lab Reporton [id number] Lab Report [facility] Patient Name: [facility] MR #: [id number] Department of Physician: Imtiaz Haq M.D. Division of Service Date: 06/21/2018 Cardiology Birthdate: 1960 Adult Cardiovascular Room #: [address] [address] Cardiovascular Laboratory Report PROCEDURES: Transesophageal echocardiogram and cardioversion. INDICATION: Atrial fibrillation. FELLOW: Dr. Sanchez. PROCEDURE IN DETAIL: An informed consent was obtained from the patient after explaining indication, risks, benefits, and alternatives. The patient understood and agreed and signed the consent form. The patient was brought to the medical laboratory technologist and RYANN was performed under conscious sedation. [...] Sanchez MD Date Trans: 06/22/2018 03:57 A/lisa DN_JN:[id number] cc: Michael Spangler M.D. [address] [facility] [address]MffbdtSehKettering [facility] Vital Signs Date TimeVital SignValuePerforming CwmgudiuaJnhdmsxu54-71-9876 09:09-0500Body xgvytx260.8 cmMichael Spangler MD Work Phone: [phone] [place], [place] 4909011-07-2025 09:09-0500 Body mass index (BMI) [Ratio]36 kg/m2Michael Spangler MD Work Phone: [phone] [place], [place] 4909011-07-2025 09:09-0500 Body .5 [degF]Michael Spangler MD Work Phone: [phone])818-[address] [place], [place] 4909011-07-2025 09:09-0500 Body ocfwgf187.85 kgMichael Spangler MD Work Phone: [phone])032-[address] [place], [place] 4909011-07-2025 09:09-0500 Diastolic blood mm[Hg]Michael Spangler MD Work Phone: 5(679)163-[address] [place], [place] 4909011-07-2025 09:09-0500 Heart rate75 /minMichael Spangler MD Work Phone: 6(626)499-[address] [place], [place] 4909011-07-2025 09:09-0500 Respiratory rate18 /minMichael Spangler MD Work Phone: [phone]11-07-2025 09:09-0500 SaO2% (BldA) [Mass fraction]92 %Michael Spangler MD Work Phone: [phone])[address]65 [address]11-07-2025 09:09-0500 Systolic blood xgkpiffd532 mm[Hg]Michael Spangler MD Work Phone: [phone] [place], [place] 9452810-06-2025 11:48-0400 Body .34 cmMichael Spangler MD Work Phone: [phone] [place], [place] 9452810-06-2025 11:48-0400 Body mass index (BMI) [Ratio]34.2 kg/m2Michael Spangler MD Work Phone: [phone] [place], [place] 4706010-06-2025 11:48-0400 Body ggtolfyybkq85.9 [degF]Michael Spangler MD Work Phone: [phone] [place], [place] 4706010-06-2025 11:48-0400 Body caitcp709.58 kgMichael Spangler MD Work Phone: [phone] [place], [place] 4706010-06-2025 11:48-0400 Diastolic blood afgdvzmm59 mm[Hg]Michael Spangler MD Work Phone: [phone])[address]10-06-2025 11:48-0400 Heart rate70 /Brian Spangler MD Work Phone: [phone] [place], [place] 4706010-06-2025 11:48-0400 Respiratory rate16 /Brian Spangler MD Work Phone: [phone])[address]10-06-2025 11:48-0400 SaO2% (BldA) [Mass fraction]93 %Michael Spangler MD Work Phone: [phone])[address]10-06-2025 11:48-0400 Systolic blood dcokiwno609 mm[Hg]Michael Spangler MD Work Phone: [facility]09-03-2025 07:41-0400 Body pnuayc659.3 cmPgabriela Letty [employer] Work Phone: [facility]09-03-2025 07:41-0400Body mass index (BMI) [Ratio]33.89 kg/n3Brliqc Letty [employer] Work Phone: [phone]09-03-2025 07:41-0400Body kiiwzs409.22 kgPolina Letty [employer] Work Phone: [phone]09-03-2025 07:41-0400Diastolic blood rpokkaiq79 mm[Hg]Tsering Letty [employer] Work Phone: [facility]09-03-2025 07:41-0400Heart xkjf444 /minPolina Letty [employer] Work Phone: [facility]09-03-2025 07:41-0400Systolic blood wernietv933 mm[Hg]Tsering Letty [employer] Work Phone: [facility]05-06-2025 15:00-0400Body uuycda485.3 cmMichael Spangler MD Work Phone: [facility] HospitalTdtnqburnh92-04-0478 15:00-0400Body mass index (BMI) [Ratio]34.73 kg/m2Michael Spangler MD Work Phone: [facility] HospitalFzojlbewlt44-06-7705 15:00-0400Body temperature 97.5 [degF]Michael Spangler MD Work Phone: [facility] HospitalUjlxvvnqef52-94-9058 15:00-0400Body opmaop699.95 kgMichael Spangler MD Work Phone: [facility] HospitalYbxkwxetdi65-75-3197 15:00-0400Diastolic blood cjzvmoox55 mm[Hg]Michael Spangler MD Work Phone: 1([phone] [place], [place] [address]Uythoyiyfm83-64-2912 15:00-0400Heart rate71 /min Michael Spangler MD Work Phone: [phone] [place], [place] [address]Zuftwfkfju33-57-5070 15:00-0400Respiratory rate18 /minMichael Spangler MD Work Phone: [phone] [place], [place] [address]Bfspspapnm16-60-2217 15:00-5806MeK4% (BldA) [Mass fraction]95 %Michael Spangler MD Work Phone: [phone] [place], [place] [address]Mknbdysdnu02-05-9161 15:00-0400Systolic blood jadovxoa358 mm[Hg]Michael Spangler MD Work Phone: [phone] [place] [address]-11-2024 08:27-0500Body aqyapz756.3 cmSteven Rusher DPM Work Phone: [phone] [place] [address]-11-2024 08:27-0500Body mass index (BMI) [Ratio]35.15 kg/n9Jbatrn Rusher DPM Work Phone: 1(584)271-[address] [place] [address]-11-2024 08:27-0500Body wdpqea301.31 kgSteven Rusher DPM Work Phone: 1(070)688-[address] [place] [address]-06-2024 10:46-0500Body wsmomw570.3 cmMichael Spangler MD Work Phone: [phone])798-[address] [place], [place] [address]Gyqnipzmms97-23-7757 10:46-0500Body mass index (BMI) [Ratio]35.15 kg/m2Michael Spangler MD Work Phone: [phone])0-[address] [place] [address]-06-2024 10:46-0500Body temperature 97.11 [degF]Michael Spangler MD Work Phone: [phone] [place] [address]-06-2024 10:46-0500Body tpwacs873.31 kgMichael Spangler MD Work Phone: [phone])376-[address] [place] [address]-06-2024 10:46-0500Diastolic blood mm[Hg]Michael Spangler MD Work Phone: 1(923)428-[address] [place] [address]-06-2024 10:46-0500Heart rate74 /min Michael Spangler MD Work Phone: [address] [address]Midqfslbmq32-59-9842 10:46-0500Respiratory rate18 /minMichael Spangler MD Work Phone: [facility] HospitalZjlpfnduzp22-46-4774 10:46-2992RvU5% (BldA) [Mass fraction]92 %Michael Spangler MD Work Phone: [address] [address]Fomydkpxaa76-18-9153 10:46-0500Systolic blood qmkyrqwa233 mm[Hg]Michael Spangler MD Work Phone: [phone] [address]Esophjazdt35-97-1743 15:15-0400Body xukiul810.3 cmSteven Rusher DPM Work Phone: [facility] HospitalMyzwmcooxo44-40-8877 15:15-0400Body mass index (BMI) [Ratio]34.87 kg/d3Pupcyd Rusher DPM Work Phone: [phone] [address]-31-2024 15:15-0400Body .4 kgSteven Rusher DPM Work Phone: [phone]12-05-2023 10:47-0500Body rikoue137.3 cmJessica Winter MD Work Phone: [phone] [facility] Uoqyov18-96-0670 10:47-0500Body cuicrl283.68 kgJessica Winter MD Work Phone: [phone] [facility] Dnofos59-30-6867 10:47-0500Diastolic blood zynkokum65 mm[Hg]Jessica Winter MD Work Phone: [phone] [facility]and Ifnznb91-31-3666 10:47-0500Heart rate70 /min Jessica Winter MD Work Phone: [phone] [facility] Trqoup80-35-6626 10:47-0500Systolic blood phipzyhd503 mm[Hg]Jessica Winter MD Work Phone: [phone] Vjdicu52-19-1791 15:23-0400Body hyihvd797.3 cmJessica Winter MD Work Phone: [phone] Vdzbsm67-81-7922 15:23-0400Body uyekqa191.4 kgJessica Winter MD Work Phone: [place] Qduluu12-59-6249 15:23-0400Diastolic blood cxykfdxf86 mm[Hg]Jessica Winter MD Work Phone: [phone] Kgtgoh61-73-6164 15:23-0400Heart rate60 /min Jessica Winter MD Work Phone: [place] Fyhqma38-01-4226 15:23-0400Systolic blood islmknqj984 mm[Hg]Jessica Winter MD Work Phone: [phone] Nrvfme27-43-8492 14:02-0400Blood Pressure LocationMichael NILL [facility] [place] 05-31-2022 14:02-0400Diastolic blood dlxvzldu54 mm[Hg] Terrence NILL [facility] [place] 05-31-2022 14:02-0400Heart rate68 /minMichael NILL [facility] [place] 05-31-2022 14:02-0400Respiratory rate16 /minMichael NILL [facility] [place] 05-31-2022 14:02-0400Systolic blood hunczeci954 mm[Hg] Terrence NILL [facility] [place] 03-22-2022 10:36-0400Body ojyvxq946.3 cmJessica Winter MD Work Phone: [phone] Ibufhz47-58-6179 10:36-0400Body ibffdz821.67 kgJessica Winter MD Work Phone: [place] Osknmu10-65-5621 10:36-0400Diastolic blood clidqcxj28 mm[Hg]Jessica Winter MD Work Phone: [place] Igyezk07-95-7571 10:36-0400Heart rate56 /min Jessica Winter MD Work Phone: [place] Nfsgsx62-27-8112 10:36-0400Systolic blood dzyalhmg607 mm[Hg]Jessica Winter MD Work Phone: [place] [facility] Encounters Encounter DateEncounter TypeCare ProviderFacilityStart: 02-08-2025 End: 79-76-0643ooqnnjwacjPlwv Naderer MD Work Phone: -[facility] ClydeStart: 02-08-2025 End: 27-17-2968Plhwsqs encounter procedureMichael Spangler [facility] Work Phone: Start: 01-07-2025 End: 13-67-2579fujxyignhtWaku Naderer MD Work Phone: [facility] Work Phone: Start: 01-07-2025 End: 11-03-9980Gxbbqhv encounter procedureMichael Spangler [facility] Work Phone: Start: 11-48-2414Htj-patient / Non-visitJessica King MD-[facility] Work Phone: Start: 12-05-2024 End: 78-65-0521Plkhnes encounter procedureTsering Saenz APRN.CNP Work Phone: CardiologyComment on above:Persistent atrial fibrillation (HCC) (Primary Dx); Primary hypertension; Chronic anticoagulation; Obstructive sleep apnea syndrome; Pre-diabetesStart: 12-05-2024 End: 77-42-9535ofxdnszhseCKSVIMT M WAZNIFacility:[facility] Hospitaltart: 12-04-2024 End: 04-82-3538ilatsvbcyuNanoylz M Wazni MD Work Phone: cardiologyComment on above:Patient Education (EPS- DCC)Start: 11-29-2024 End: 11-31-1448Lohuwyipg Simone Winter MD Work Phone: cardiologyComment on above:Received Outside Medical Records (EKG)Start: 11-28-2024 End: 82-21-2972Bnghasfwp Simone Winter MD Work Phone: cardiologyComment on above:Appointment (Cardioversion) Start: 11-26-2024 End: 44-09-6068Ddyjhwavh Result EncounterGeneric External Data ProviderNOMS External Department UnsolicitedStart: 11-26-2024 End: 14-90-2617Izyrnvllb Result EncounterGeneric External Data ProviderNOMS External Department UnsolicitedStart: 11-26-2024 End: 97-44-9883Jtxeggzdv encounterJessica Winter MD Work Phone: cardiologyComment on above:Patient Update (Back in AFib)Start: 09-03-2024 End: 18-59-4436PcnyegTezltfl M Wazni MD Work Phone: cardiologyComment on above:Refill Request (Eliquis) Persistent atrial fibrillation (HCC) (Primary Dx)Start: 09-01-2024 End: 11-95-3991Npnymyimp Result Nitin Spangler MD Work Phone: noms External Department UnsolicitedStart: 09-01-2024 End: 94-07-2663Wrvmyfdhj Result Nitin Spangler MD Work Phone: noms External Department UnsolicitedStart: 09-01-2024 End: 04-92-6529GsfowxYclefrfSharon Winter MD Work Phone: CardiologyComment on above:Refill RequestStart: 08-07-2024 End: 48-64-4336tuuwetcamtXTCI NADERERNot AvailableStart: 08-07-2024 End: 25-90-7893Nkhbla outpatient visit 25 minutesMichael Spangler MD Work Phone: noms CWM FMComment on above:Type 2 diabetes mellitus with hyperglycemia, without long-term current use of insulin (CMS/HCC) (Primary Dx); Essential hypertension, benign (CMS/HCC); AF (paroxysmal atrial fibrillation) (CMS/HCC); REAL on CPAP; Plantar fasciitis of right foot; Annual physical examStart: 08-07-2024 End: 38-75-8405Cjspjei encounter procedureMichael Spangler MD Work Phone: noms HealthcareStart: 08-07-2024 End: 49-59-1858Lvzvfm Schuyler Spangler MD Work Phone: noms CWM FMStart: 08-07-2024 End: 18-00-0989Vhkdoi Schuyler Spangler MD Work Phone: noms CWM FMStart: 05-30-2024 End: 49-28-7471aduasnthzqBQUCHBlanchard Valley Health System [facility] Hospitaltart: 05-21-2024 End: 64-58-3577Vxhbmbpyp encounterOuspaolo Winter MD Work Phone: cardiologyComment on above:Patient QuestionStart: 02-13-2024 End: 29-19-7212Ktzdlc flowsheetSteven A Rusher DPM Work Phone: noms PODIATRYStart: 02-13-2024 End: 98-40-2241Nzwwto flowsheetSteven A Rusher DPM Work Phone: noms PODIATRYStart: 02-13-2024 End: 58-21-7618Zisihoukc Result EncounterMichael Spangler MD Work Phone: noms External Department UnsolicitedStart: 02-13-2024 End: 13-26-2233Ymeiik follow up visit related to original pxSteven A Rusher DPM Work Phone: noms PODIATRYComment on above:Postoperative visit (Primary Dx); Dermatophytosis of nailStart: 02-13-2024 End: 26-89-9488rwgnnhfxgfRSJGLI A RUSHERNot AvailableStart: 02-10-2024 End: 05-38-2721Ifsesb flowsheetSteven A Rusher DPM Work Phone: noms PODIATRYStart: 02-10-2024 End: 86-22-0769Mwdvdz flowsheetSteven A Rusher DPM Work Phone: noms PODIATRYStart: 02-08-2024 End: 96-49-0406Fqxmzbalbaro Spangler MD Work Phone: noms CWM FMStart: 02-08-2024 End: 05-84-7444Mamimeramírez Spangler MD Work Phone: NODS CWM FMStart: 02-08-2024 End: 53-50-0579mnopolwroyAKPY NADERERNot AvailableStart: 02-08-2024 End: 94-28-9005Zcbfbe outpatient visit 25 minutesMichael Spangler MD Work Phone: noms CWM FMComment on above:Type 2 diabetes mellitus with hyperglycemia, without long-term current use of insulin (CMS/HCC) (Primary Dx); Essential hypertension, benign (CMS/HCC); AF (paroxysmal atrial fibrillation) (CMS/HCC); Gastroesophageal reflux disease without esophagitisStart: 02-02-2024 End: 14-22-9956Krhsdvs encounter procedureSteven A Rusher DPM Work Phone: noms PODIATRYComment on above:Dermatophytosis of nail (Primary Dx); Dystrophic nail; Pain of left great toe; Difficulty walkingStart: 02-02-2024 End: 51-45-7676kjlavzquxaCNPPNT A RUSHERNot AvailableStart: 02-01-2024 End: 71-54-2245Xwwcmv flowsheetSteven A Rusher DPM Work Phone: NOMS PODIATRYStart: 02-01-2024 End: 16-51-9379Zrvmep flowsheetSteven A Rusher DPM Work Phone: NOMS PODIATRYStart: 01-05-2024 End: 49-76-2635PpzchsGlflflz M Wazni MD Work Phone: cardiologyComment on above:Refill RequestStart: 10-27-2023 End: 75-84-5503oxpoyyordnMGYITJ A RUSHERNot AvailableStart: 09-22-2023 End: 13-40-4820nwidsbuykfVTBKSH A RUSHERNot AvailableStart: 09-08-2023 End: 83-09-7027gppzbftlvzHBCJTS A RUSHERNot AvailableStart: 08-22-2023 End: 95-77-6266okonbxjsjyTHPFGT A RUSHERNot AvailableStart: 85-81-7488Mifiqlyang Link MD Work Phone: CardiologyComment on above:Refill RequestStart: 56-31-8714dkxpsfjhhaXswlorp M Wazni MD Work Phone: cardiologyComment on above:eliquisStart: 03-08-2023 End: 05-10-6502Fvebgeipb Result EncounterGeneric External Data ProviderNOMS External Department UnsolicitedStart: 03-08-2023 End: 41-97-1227Odfgdudqx Result EncounterGeneric External Data ProviderNOMS External Department UnsolicitedStart: 03-08-2023 End: 25-19-8306Rmatbzt encounter procedureOuspaolo Winter MD Work Phone: cardiologyComment on above:Persistent atrial fibrillation (HCC) (Primary Dx); Primary hypertensionStart: 66-05-6841NyjjhzJcargszSharon Winter MD Work Phone: cardiologyStart: 31-64-8846zcfkatmqvjEqfzhcl R NILL Facility:[facility]Start: 10-20-2022 End: 91-40-8345farhdomzpbCupagpz R NILLFacility::[id number]: 09-22-2022 End: 46-74-0031igzewzzgjtMdtgfhp R NILLFacility: BellevueStart: 03-11-2022 End: 05-73-5967Mwhjkyq evaluation of patient and reportResearch Nurse Card Eps MainCardiologyComment on above:IRB 20-461 MAP AF PI: Dr. Shannon Dozier (Primary Dx)Start: 03-11-2022 End: 70-56-0384Ruyrbup entered into trialResearch Nurse Card Eps MainCardiology Start: 02-16-2022 End: 01-52-8646zdxnjgbeowJL MICHAEL Gregory NADERERFacility:X6Hgmvh: 88-67-6946Cmpshs Jessica Winter MD Work Phone: cardiologyComment on above:Refill RequestStart: 10-16-2021 End: 88-60-2573Nyljwzy encounter procedureMichael R NILL General Surgery Nill/Said [place] Start: 10-12-2021 End: 33-84-4879frhkdgnexrVLRCAC H FAWWADFacility:Y0Byasq: 10-07-2021 End: 41-47-7064vtpxbrwampNS MICHAEL NILLFacility:M9Qwfky: 10-01-2021 End: 79-96-9029xvuyozuvqaGYDTRF H FAWWADFacility:Z8Ytidv: 47-57-2785Wfedmc Only Jessica Winter MD Work Phone: cardiologyComment on above:Persistent atrial fibrillation (HCC) (Primary Dx); IRB 20-461 MAP AF PI: Dr. Shannon RodriguezinStart: 56-03-2828Whrhufh entered into Milton Winter MD Work Phone: cardiologyStart: 09-24-2021 End: 17-47-8207ewunjarffjHsrfdohkdr Monitoring Lab Work Phone: cardiologyComment on above:Event (zio )Start: 09-24-2021 End: 45-65-4361Ersimmb encounter procedureJessica Winter MD Work Phone: cardiologyComment on above:Atrial fibrillation, persistent (HCC) (Primary Dx); Obstructive sleep apnea syndrome; Left atrial thrombus; Ejection fraction < 50%Start: 20-88-1492PuvjsjPowjzpn M Wazni MD Work Phone: cardiologyComment on above:Refill RequestStart: 09-01-2021 End: 74-35-0504Eyjhwgu encounter procedureMichael R NILL General Surgery Nill/[place]aid [place] Start: 69-68-5222wvhfjxfirvUfjzbno M Wazni MD Work Phone: cardiologyComment on above:Any treatment adjustment Start: 38-06-2977Nhemlfrqu for general adult medical examination without abnormal findingsDR MICHAEL [facility] [place] HospitalStart: 08-17-2021 End: 57-63-3902wdnzjmdwcdEF MICHAEL Gregory NADERERFacility:W0Tavxi: 08-17-2021 End: 88-41-5214Assaglwzl for general adult medical examination without abnormal findingsDR MICHAEL Gregory NADERERFacility:E7Tpgfh: 76-86-8106Mjofebxgi encounterJessica Winter MD Work Phone: cardiologyComment on above:Medication Problem (Prior auth denial )Start: 53-45-7094Zwtgexarv encounterJessica Winter MD Work Phone: cardiologyComment on above:Prior Auth from Cover My MedsStart: 20-05-5997Opymrk Poornima Winter MD Work Phone: cardiologyComment on above:Persistent atrial fibrillation (HCC) (Primary Dx); IRB 20-461 MAP AF PI: Dr. Shannon RodriguezinStart: 61-98-8180Gbclygc entered into Milton Winter MD Work Phone: cardiologyStart: 06-23-2021 End: 81-02-4511vctitjnjkdZbylkktdfc Monitoring Lab Work Phone: cardiologyComment on above:Holter Monitor Application (24)Start: 06-23-2021 End: 02-30-7730Arijmwv encounter procedureJessica Winter MD Work Phone: cardiologyComment on above:Atrial fibrillation, persistent (HCC) (Primary Dx)Start: 06-23-2021 End: 36-90-7761Fxqpmxi evaluation of patient and reportResearch Nurse Card Eps MainCardiologyComment on above:IRB 20-461 MAP AF PI: Dr. Shannon Dozier (Primary Dx)Start: 06-23-2021 End: 84-03-1145Daaqnuk entered into trialResearch Nurse Card Eps MainCardiology Start: 92-19-5731Elfgyuy entered into trialResearch [facility] Hospitaltart: 06-21-2018 End: 32-11-1545Empfrvk encounter procedurePROVIDER UNKNOWNFacility:[facility] Procedures DateProcedureProcedure DetailPerforming ClinicianStart: 11-46-6982RXF 12-LEAD Generic External Data ProviderStart: 18-60-7085ESX CBC WITH AUTO DIFFMichael Spangler MD Work Phone: Start: 02-14-8834IPV HEMOGLOBIN A3REcqoMichael Spangler MD Work Phone: Start: 16-94-7704Rfv routine ecg w/least 12 lds w/i&r Generic External Data ProviderStart: 09-70-3762AngnuwmoyngIacrpi Rusher DPM Work Phone: Start: 76-87-1636FmzwketbjsphgAzvqynr NILL Start: 10-02-8175LJP screeningSHAIKH FAWWADComment on above:Performed By: #### PSASC, VITAD #### [facility] [address] [place] [address] Dr. Neelima BansalStart: 09-27-7725RvovtqgqgyvIsezsve NILL CardioversionMichael NILL Catheter ablation of tissue of heartMichael NILL TonsillectomyMichael NILL Plan of Treatment DateCare ActivityDetailAuthorStart: 83-13-7684CGM Vaccine (1 - 1-dose 75+ series)RSV Vaccine (1 - 1-dose 75+ series)[facility] 10-20[facility]2032 Screening for malignant neoplasm of colonNOMS [facility] HospitalStart: 09-01-2029 Prostate specific antigen measurementProstate Cancer Screening Discussion [facility]: 47-78-0981Tzfeblzw ScreeningDiabetes ScreeningMercy Health Lorain Hospitaltart: 80-58-1949ENUSUXLR CANCER SCREENING DISCUSSIONPROSTATE CANCER SCREENING DISCUSSIONMercy Health Lorain Hospitaltart: 92-40-2378Hzqhcfhs specific antigen measurementProstate Cancer Screening DiscussionMercy Health Lorain Hospitaltart: 03-07-2025 End: 37-02-6121Szkjjyc encounter ooanzicfa10/04/2025 10:00 AM EST Office Visit Cardiology [address] [id number] AsdxgJessica Winter MD [address] [place] [address] Dx.PERSISTANT AFIBCardiologyComment on above:Dx. PERSISTANT AFIBStart: 03-07-2025 End: 92-07-6217pdalpyupql91/04/2025 9:00 AM EST Procedure Cardiology [address] [place] [address] Dx.PERSISTANT AFIBCardiologyComment on above:Dx. PERSISTANT AFIBStart: 02-08-2025 End: 10-75-3579Fwkszrp encounter wiosrptgl05/07/2025 9:00 AM EST Office Visit [facility] [address] [place] [address] Michael Spangler MD [address] [place] [address] [facility] FMStart: 56-63-8719Bcepalk referralWilson Memorial Hospital Work Phone: Start: 12-05-2024 End: 92-36-2856Kmbzxebirwqdi elective arrhythmia externalCARDIOVERSION EXTERNAL ELECTIVE Persistent atrial fibrillation (HCC) 12/05/2024 10:35 AM EDTMC EP LAB Start: 12-05-2024 End: 53-99-2882Yutztyush to same day surgery [facility] EP LabComment on above:CARDIOVERSION EXTERNAL ELECTIVEStart: 12-05-2024 End: 66-16-1083aoygvyzjzz50/03/2025 7:00 AM EDT Procedure Cardiology [address] [place] [address] DCCCardiologyComment on above:DCCStart: 12-05-2024 End: 90-08-3030Kvscxlfzvvpvq elective arrhythmia externalMC EP LABStart: 99-47-4805Xobgxcswtu hospital visit by [facility] EP LabComment on above: Persistent atrial fibrillation (HCC) [I48.19]Start: 12-05-2024 End: 20-54-9501Bzymgfi encounter procedureCardiologyComment on above:DCC interviewStart: 99-16-1609Epjeshxoc vaccinationFILLMORE COMMUNITY MEDICAL CENTER HealthcareStart: 08-26-2024 Urine screening for proteinDiabetes: Urine Protein ScreeningFILLMORE COMMUNITY MEDICAL CENTER Healthcare Start: 60-81-0285Mwysyhdfqs A1c measurementDiabetes: Hemoglobin T9KGTHZ HealthcareStart: 08-07-2024 End: 91-59-3553Rhdwwyz encounter ghqqdueob33/06/2025 2:45 PM EDT Office Visit [facility] [address] [place] [address] Michael Spangler MD [address] [place] [address] [facility] FMStart: 08-07-2024 End: 72-54-3022Syjvn metabolic 1998 panel - Serum or PlasmaBasic metabolic panel Lab Routine Annual physical exam Expected: 08/07/2024 (Approximate), Expires: 08/07/2025[facility] HealthcareComment on above:Expected: 08/07/2024 (Approximate), Expires: 08/07/2025Start: 08-07-2024 End: 80-89-0049SCL W Auto Differential panel - BloodCBC and differential Lab Routine Annual physical exam Expected: 08/07/2024 (Approximate), Expires: 0 08/07/2025[facility] HealthcareComment on above:Expected: 08/07/2024 (Approximate), Expires: 08/07/2025Start: 08-07-2024 End: 20-57-2586Zpefgakheb A1c/Hemoglobin.total in BloodHemoglobin A1c Lab Routine Annual physical exam Expected: 08/07/2024 (Approximate), Expires: 08/07/2025[facility] HealthcareComment on above:Expected: 08/07/2024 (Approximate), Expires: 08/07/2025Start: 08-07-2024 End: 41-46-4543Jbozkma function 2000 panel - Serum or PlasmaHepatic function panel Lab Routine Annual physical exam Expected: 08/07/2024 (Approximate), Expires: 08/07/2025[facility] HealthcareComment on above:Expected: 08/07/2024 (Approximate), Expires: 08/07/2025Start: 08-07-2024 End: 37-65-0287Abhem 1996 panel - Serum or PlasmaLipid panel Lab Routine Annual physical exam Expected: 08/07/2024 (Approximate), Expires: 08/07/2025[facility] HealthcareComment on above:Expected: 08/07/2024 (Approximate), Expires: 08/07/2025Start: 08-07-2024 End: 33-79-8740Mlzesmrejpky/Creatinine panel in random UrineMicroalbumin / creatinine, urine ratio Lab Routine Type 2 diabetes mellitus with hyperglycemia, without long-term current use of insulin ([facility]) Expected: 08/07/2024 (Approximate), Expires: 08/07/2025[facility] Work Phone: Comment on above:Expected: 08/07/2024 (Approximate), Expires: 08/07/2025Start: 08-07-2024 End: 89-06-6139Oplhuwrs specific Ag [Mass/volume] in Serum or PlasmaPSA Lab Routine Annual physical exam Expected: 08/07/2024 (Approximate), Expires: 08/07/2025[facility] HealthcareComment on above:Expected: 08/07/2024 (Approximate), Expires: 08/07/2025Start: 08-07-2024 End: 01-46-8588Oeryrsvupvt [Units/volume] in Serum or PlasmaTSH Lab Routine Annual physical exam Expected: 08/07/2024 (Approximate), Expires: 08/07/2025[facility] HealthcareComment on above:Expected: 08/07/2024 (Approximate), Expires: 08/07/2025Start: 84-13-2562CBBPZWPA SCREENDIABETES SCREENMercy Health Lorain Hospitaltart: 34-11-6082Cogghanu ScreeningDiabetes ScreeningMercy Health Lorain Hospitaltart: 02-27-2024 Hemoglobin A1c measurementDiabetes: Hemoglobin D4SVOST HealthcareStart: 02-13-2024 End: 85-47-7981Kfvghhi encounter procedureNOSSM [facility]ALTH [facility] PODIATRYComment on above: ArrivedStart: 02-08-2024 End: 23-19-5422Yzlwiigoge A1c/Hemoglobin.total in BloodHemoglobin A1c Lab Routine Type 2 diabetes mellitus with hyperglycemia, without long-term current use of insulin ([facility]) Expected: 02/08/2024 (Approximate), Expires: 02/07/2025 [facility] Healthcare Work Phone: Comment on above:Expected: 02/08/2024 (Approximate), Expires: 02/07/2025Start: 02-08-2024 End: 38-67-7932Udhxkig encounter ztnhxnoyx66/06/2024 10:30 AM EST Office Visit [facility] [address] [place] [address] Michael Spangler MD [address] [place] [address] [facility] FMStart: 02-02-2024 End: 70-10-1047Kpmoanc encounter zihfhjkhm64/31/2024 3:30 PM EDT Office Visit [facility] [address] [place] [address] Radha Bonilla, DPFernando [address] [place] [address] N[facility] PODIATRYStart: 45-23-6474Ifpmg-19 Vaccine () Covid-19 Vaccine ()[facility]: 28-32-7780Cmpskuwww vaccinationMercy Health Lorain Hospitaltart: 08-52-6203Rxwoyhisv for malignant neoplasm of colonMercy Health Lorain Hospitaltart: 62-84-6962Ryyswjmaev Health ScreeningBehavioral Health ScreeningCleMercy Health Urbana Hospitaltart: 42-93-9874Xxdqqbonhj AssessmentDepression AssessmentMercy Health Lorain Hospitaltart: 93-35-7474MN Controlled (<130/80)BP Controlled (<130/80)[facility]: 76-86-1146Qxvtq-19 Vaccine ( season) Covid-19 Vaccine ()[facility]: 16-31-6177Ibyiw-19 Vaccine ()Covid-19 Vaccine ()[facility]: 62-27-3080Hbtkwzxtm vaccinationInfluenza Vaccine (#1)[facility]: 04-02-3750Igxzksfvyb AssessmentDepression AssessmentMercy Health Lorain Hospitaltart: 92-14-6720Pqiezsldy vaccinationMercy Health Lorain Hospitaltart: 11-19-2021 COVID-19 VACCINE (4 - Booster for Pfizer series)COVID-19 VACCINE (4 - Booster for Pfizer series)[facility]: 48-40-0519RNXCD-19 VACCINE (4 - Booster for Pfizer series)COVID-19 VACCINE (4 - Booster for Pfizer series)[facility]: 70-74-1098IKI Vaccine (1 - 1-dose 60+ series)RSV Vaccine (1 - 1- dose 60+ series)[facility]: 80-01-2436JXLSMTRTYS ASSESSMENTDEPRESSION ASSESSMENTMercy Health Lorain Hospitaltart: 27-46-2283OPMQQ-19 VACCINE (3 - Booster for Pfizer series)COVID-19 VACCINE (3 - Booster for Pfizer series)[facility] Start: 04-58-3126Nvaqppkec vaccinationINFLUENZA (#1)[facility]: 43-68-9111Sdgbq microalbumin profileMercy Health Lorain Hospitaltart: 23-39-4714LYMOSARZ CANCER SCREENING DISCUSSIONPROSTATE CANCER SCREENING DISCUSSIONParma Community General Hospital Start: 83-96-4247Edgricjxcjjx Vaccine: 50+ (1 of 1 - PCV)Pneumococcal Vaccine: 50+ (1 of 1 - PCV)[facility]: 32-56-5722FXTNTUME VACCINE (1 of 2) SHINGRIX VACCINE (1 of 2)[facility]: 03-00-9358WRCCDVUSD (FIT-DNA) COLOGUARD (FIT-DNA)[facility]: 72-44-4356IzitzzsbmagDQZUCKPXIIO [facility]: 97-54-6367KDGKXIOPNQ CANCER SCREENINGCOLORECTAL CANCER SCREENINGMercy Health Lorain Hospitaltart: 55-14-5379CB COLONOGRAPHYCT COLONOGRAPHY [facility]: 44-56-7321CQADB OCCULT BLOODFECAL OCCULT BLOODMercy Health Lorain Hospitaltart: 61-63-5741Snzmfqwdj for malignant neoplasm of colonParma Community General Hospital Start: 24-79-0023ARNOGPQTWEALTDFOQSWACIPKNHScxvkwsgk ClinicStart: 1996 Lipid 1996 panel - Serum or PlasmaLipid ScreeningMercy Health Lorain Hospitaltart: 50-38-3337Hppbq panelLipid ScreeningMercy Health Lorain Hospitaltart: 16-76-1557UQMCF SCREENLIPID SCREENMercy Health Lorain Hospitaltart: 04-98-7213Cdvye screening for protein Diabetes: Urine Protein ScreeningSt. Luke's HospitalStart: 68-75-1924Ffwxdu PCP Team Chronic Disease VisitAnnual PCP Team Chronic Disease VisitParma Community General Hospital Start: 35-22-0324Bglaifp ScreeningAnxiety ScreeningMercy Health Lorain Hospitaltart: 66-65-7699PI Controlled (<130/80)BP Controlled (<130/80)[facility]: 81-11-8664Luxduqkjqy ScreeningDepression ScreeningMercy Health Lorain Hospitaltart: 15-72-0334HRGJZZKOJ C SCREENINGHEPATITIS C SCREENINGMercy Health Lorain Hospitaltart: 30-01-7734Ugdrkpysm C screeningHepatitis C ScreeningMercy Health Lorain Hospitaltart: 65-15-6929PQU SCREENINGHIV SCREENINGMercy Health Lorain Hospitaltart: 18-34-0156HAS screeningHIV ScreeningMercy Health Lorain Hospitaltart: 31-89-8453Ccvgd depression screening assessmentDEPRESSION SCREENINGMercy Health Lorain Hospitaltart: 09[birth year]07-1970 Glaucoma screeningDiabetes: Retinopathy ScreeningSt. Luke's HospitalStart: 17-35-3982Hfxhbygrkx A1c measurementDiabetes: Hemoglobin S1YKLDPSt. Luke's Hospital Start: 49-69-7526Foylmclpj for malignant neoplasm of colonSt. Luke's Hospital End: 62-45-4860WPV COMPLETEECG COMPLETE ECG Routine Persistent atrial fibrillation (HCC) IRB 20-341 MAP AF PI: Dr. Shannon Dozier 1 [facility]ur[facility] 06[facility]24[facility]2021 [facility] Work Phone: comment on above:1 Occurrences starting 06/24/2021 until 06/24/2022 End: 58-92-5102TAN COMPLETEECG COMPLETE ECG Routine Persistent atrial fibrillation (HCC) IRB 20-161 MAP AF PI: Dr. Shannon Dozier 1 Occurrences starting 09/30/2021 until 3[facility] Work Phone: comment on above:1 Occurrences starting 09/30/2021 until 09/30/2022 End: 48-84-8289AJO COMPLETEECG COMPLETE ECG Routine Persistent atrial fibrillation (HCC) 1 Occurrences starting 09/03/2024 until 6[facility] Work Phone: comment on above:1 Occurrences starting 09/03/2024 until 09/03/2025 End: 32-20-3925UFR COMPLETEECG COMPLETE ECG Routine Persistent atrial fibrillation (HCC) 1 Occurrences starting 11/28/2024 until 6[facility] Work Phone: comment on above:1 Occurrences starting 11/28/2024 until 11/28/2025EchocardiographyECHO Cardiology Routine Atrial fibrillation, persistent (HCC) Ordered: 06/23/2021[facility] Work Phone: comment on above:Ordered: 06/23/2021MR Knee [facility] right [facility] C[facility] OUTPATIENT EXTENDED RHYTHM RECORDING (WITHOUT TELEMETRY)OUTSIDE VENDOR CARDIAC OUTPATIENT EXTENDED RHYTHM RECORDING (WITHOUT TELEMETRY) Holter Routine Persistent atrial fibrillation (HCC) IRB 20-471 MAP AF PI: Dr. Shannon Dozier Ordered: 06/24/2021 [facility] Work Phone: comment on above:Ordered: 2OUTSIDE VENDOR CARDIAC OUTPATIENT EXTENDED RHYTHM RECORDING (WITHOUT TELEMETRY)OUTSIDE VENDOR CARDIAC OUTPATIENT EXTENDED RHYTHM RECORDING (WITHOUT TELEMETRY) Holter Routine Persistent atrial fibrillation (HCC) IRB 20-781 MAP AF PI: Dr. Shannon Dozier Ordered: 09/30/2021[facility] Work Phone: comment on above:Ordered: 09/30/2021atient [facility] Work Phone: XR Knee - right 4 [facility] Immunizations Immunization DateImmunizationNotesCare WdjntsjiZnqyxxov73-94-2719Whjojp Cook Cap SARS-CoV-2 VaccinationSteven Rusher DPM Work Phone: [facility] HospitalIhyrhyyncy38-08-7734Xpxvdv Purple Cap SARS-CoV-2 VaccinationSteven Rusher DPM Work Phone: [facility] HospitalFpdjfqtnjk02-93-7501VHLW-DnD-6 (COVID-19) mRNA BNT-162b2 vaxMichael NILL [place] [id number] Purple Cap SARS-CoV-2 Vaccination Radhamanjit Bonilla DPM Work Phone: [facility] HospitalJojwkffbfj83-78-5273WNBT-VfH-0 (COVID-19) mRNA BNT-162b2 vaxMicvicentel NILL General [place] [id number] toxoid, reduced diphtheria toxoid, and acellular pertussis vaccine, adsorbedResearch [facility] Payers DatePayer CategoryPayerPolicy [id number] Cross Blue Shield [id number] [id number] MMO SUPERMED PLUS [id number] 2018-Present [phone] [address] [place] [address] [id number]99-57-9173Hdjrmya 1.2.840.145646.1.13.159.2.7.3.837[id number] 2.0.1.788116.3.57[id number] 2..1.475458.3.57[id number] 2.840.1.830033.3.57[id number] 2.16840.1.371021.3.57[id number] 2.840.1.553136.3.57[id number] 2.840.1.009039.3.57[id number] 2.16.840.1.922051.3.57[id number] 2.16.840.1.635736.3.57[id number] 2.16.840.1.180452.3.57[id number] 2.16.840.1.995858.3.57[id number] 2.16.840.1.290321.3.57[id number] 2.16.840.1.427780.3.57[id number] 2.840.1.808129.3.57[id number] 2.840.1.723706.3.57[id number] 2.840.1.186984.3.57[id number] 2.840.1.083278.3.57[id number] 2.0.1.610967.3.57[id number] 2.840.1.676206.3.57[id number] 2.0.1.582241.3.579.[id number] Social History DateTypeDetailFacilityStart: 07-18-2018 End: 14-39-2680Wpnfyfi smoking status NHISEx-smokerParma Community General Hospital End: 19-98-4341Gucebvl of tobacco useCurrent smokerParma Community General Hospital End: 11-23-6788Ijqaqwf of tobacco useCigarette SmokerMercy Health Lorain Hospitaltart: 07-18-2018 End: 57-36-6737Odfjayp use and exposureSmokeless tobacco non-userMercy Health Lorain Hospitaltart: 06-23-2021 End: 58-22-1101Izgugma intakeCurrent drinker of alcohol (finding)[facility]: 38-41-8141Gmbxuri SDOH Alcohol CommentrarelMercy Health Clermont Hospitaltart: 25-54-0934Llx Assigned At BirthFormerly [facility] ClinicStart: 06-13-2021 End: 94-34-7782Ffabpknx to SARS-CoV-2 (event)Not sureMercy Health Lorain Hospitaltart: 07-06-2018 End: 73-43-8711Bqwlyzn smoking statusNeverGeneselect medical specialty [facility] [place] Start: 03-11-2022 End: 95-88-0777Nei Assigned At [facility] Start: 09-20-2021 End: 90-23-7594Lpqvaisd to SARS-CoV-2 (event)Unable to assessParma Community General Hospital Work Phone: Start: 03-11-2022 End: 54-66-7401Moipmfm of Social functionMercy Health Lorain Hospitaltart: 00-42-4642Yusenf identityIdentifies as male gender (finding)[facility]: 04-07-2021 Sexual orientationHeterosexual (finding)[facility]: 10-27-2023 End: 29-07-4076Amziwxlhq beverage intakeEx-drinker (finding)[facility] Healthcare Start: 25-48-9929Xrkuzte CommentrareNOMS HealthcareStart: 27-04-9410Lwm assigned at birthNot on fileNOMS HealthcareSexMale (finding)[facility] HospitalTobacco smoking status NHISTobacco smoking consumption unknownNOMS Healthcare Medical Equipment Procedure CodeEquipment CodeEquipment Original TextEquipment IdentifierDates1 each by In Vitro route [id number]: each [id number]: 08-07-2024 Goals DatePatient GoalDesired Activity/StatePersonal health goalPersonal health goal Functional Status StwsVwwswvaaukYdzqopVezyieod99-34-2727Hbi you deaf, or do you have serious difficulty hearingNo 12/05/2024 11:04 AM EDT Estefany Rashid RN NoCselect medical specialty hospital [facility] ohiodre Eojgba05-98-8431Ewl you blind, or do you have serious difficulty seeing, even when wearing glassesNo 12/05/2024 11:04 AM EDT Estefany Rashid RN NoCselect medical specialty hospital [facility]iodre Saejbi21-29-3733Dr you have serious difficulty walking or climbing stairsNo 12/05/2024 11:04 AM EDT Estefany Rashid RN NoCselect medical specialty hospital [facility]iodre Kofita25-62-1457Zq you have difficulty dressing or bathingNo 12/05/2024 11:04 AM EDT Estefany Rashid RN NoCTwin City HospitalEwwjoz89-91-7646To[place] of a physical, mental, or emotional condition, do you have difficulty doing errands alone such as visiting a physician's office or shoppingNo 12/05/2024 11:04 AM EDT Estefany Rashid RN No [facility] HospitalGkwnyi49-62-1082Ypwfm score [AUDIT-C]-1 08/03/2023 5:56 PM EDT Yesika TerrellSt. Luke's HospitalTbmilfbhrn84-08-8803Yltnyqctpb statusPatient declined 08/03/2023 5:56 PM EDT Xander Generic Patient [facility] 63-03-3630Koh you deaf, or do you have serious difficulty hearingNo 03/19/2021 5:23 PM [place] Salvador RN NoCTwin City HospitalYtjkrb21-62-3772Nic you blind, or do you have serious difficulty seeing, even when wearing glassesNo 03/19/2021 5:23 PM [place] Salvador RN NoCTwin City HospitalCfeywb53-03-1761Ml you have serious difficulty walking or climbing stairsNo 03/19/2021 5:23 PM [place] Salvador RN NoCTwin City HospitalOljles60-34-9365Xz you have difficulty dressing or bathingNo 03/19/2021 5:23 PM [place] Salvador RN NoCTwin City HospitalTczfbv17-00-9724Avtltal of a physical, mental, or emotional condition, do you have difficulty doing errands alone such as visiting a physician's office or shoppingNo 03/19/2021 5:23 PM [place] Salvador RN [facility] Mental Status RwbeZxhluwicuvXkfnhvEhvevxss01-48-9512Dzseatx of a physical, mental, or emotional condition, do you have serious difficulty concentrating, remembering, or making decisionsNo 12/05/2024 11:04 AM EDT Estefany Rashid RN [facility] HospitalGanpgi13-95-3280Ztuhbyq of a physical, mental, or emotional condition, do you have serious difficulty concentrating, remembering, or making decisionsNo 03/19/2021 5:23 PM [place] Salvador RN [facility] Clinical Notes 06-23-2021 to 01-07-2025 Note Date & BrghValxJvhwbchx94-64-3036 Evaluation note* Diagnosis Onset Date Resolution Status Admit Date Right knee pain acuteOctober 2024 10:56amAF (paroxysmal atrial fibrillation)acuteNovember 2024 8:56amEssential hypertension, benignacuteNovember 2024 8:56am Injury of meniscus of right kneeacuteNovember 2024 8:56amInternal derangement of right kneeacuteNovember 2024 8:56amOSA on CPAPacuteNovember 2024 8:56amType 2 diabetes mellitus with hyperglycemia, without long-term current useacuteNovember 2024 8:56am [facility] Work Phone: 1(836) 431-552809-03-2025 History and physical note* Tsering Saenz APRN.ENRICHMENT TEACHER - 12/05/2024 7:17 AM EDT Images from the original note were not included. [facility] [place] Josi Apodaca Department of Cardiovascular Medicine SECTION OF CARDIAC PACING and ELECTROPHYSIOLOGY OUTPATIENT VISIT DATE December 05, 2024 OUTPATIENT VISIT TYPE ESTABLISHED PRIMARY CARE PHYSICIAN: Michael Spangler (Luis) [address] [place] [address] CHIEF COMPLAINT: Atrial fibrillation HISTORY OF PRESENT [...] 3 weeks. NPO since midnight, has a transit driver today - Proceed with cardioversion today. [...] to lower AF recurrence risk. Recording using [employer] software for draft documentation of the visit was discussed with the patient/authorized tour sales representative; all questions welcomed and answered. Patient/authorized tour sales representative agreed to proceed CONTACT INFORMATION: Tsering Saenz APRN.ENRICHMENT TEACHER Dr. Jessica Winter 's office To schedule an appointment please call --[phone] Other questions or concerns please call his office at -- [phone] Fax#: [phone] [1] Social History Tobacco Use Smoking status: Former Current packs/day: 0.00 Types: Cigarettes Quit date: 2018 Years since quittin.6 Smokeless tobacco: Never Vaping Use Vaping status: Never Used Substance Use Topics Alcohol use: Yes Comment: rarely Drug use: Not Currently [facility]09-03-2025 History and physical note* Tsering Saenz APRN.CNP - 12/05/2024 7:17 AM EDT Images from the original note were not included. [facility] [place] Josi Apodaca Department of Cardiovascular Medicine SECTION OF CARDIAC PACING and ELECTROPHYSIOLOGY OUTPATIENT VISIT DATE December 05, 2024 OUTPATIENT VISIT TYPE ESTABLISHED PRIMARY CARE PHYSICIAN: Michael Spangler (Luis) [address] [place] [address] CHIEF COMPLAINT: Atrial fibrillation HISTORY OF PRESENT [...] 3 weeks. NPO since midnight, has a transit driver today - Proceed with cardioversion today. [...] to lower AF recurrence risk. Recording using [employer] software for draft documentation of the visit was discussed with the patient/authorized tour sales representative; all questions welcomed and answered. Patient/authorized tour sales representative agreed to proceed CONTACT INFORMATION: HUSSAIN Copeland Dr. 's office To schedule an appointment please call --[phone] Other questions or concerns please call his office at -- [phone] Fax#: [phone] [1] Social History Tobacco Use Smoking status: Former Current packs/day: 0.00 Types: Cigarettes Quit date: 2018 Years since quittin.6 Smokeless tobacco: Never Vaping Use Vaping status: Never Used Substance Use Topics Alcohol use: Yes Comment: rarely Drug use: Not Currently documented in this encounterParma Community General Hospital09-02-2025 NoteHNO ID: [id number] Author: PHYLLIS JAY RN Service: ? Author [...] discussed with Physician, nurse practitioner or Physician cosmetic sales assistant upon discharge Instructions for transmitting EKG to Monitoring Center 3 month follow up instructions Contact number for information and questions Patient Evaluation: Verbalizes understanding Follow Up Plan: Follow up as directed by MD. Supplemental Material Given: Written Material Instructed By Phyllis Jay RN. In Department of CARDIOLOGY.[facility]09-02-2025 History of Present illness Narrative* Phyllis [...] discussed with Physician, nurse practitioner or Physician cosmetic sales assistant upon discharge Instructions for transmitting EKG to Monitoring Center 3 month follow up instructions Contact number for information and questions Patient Evaluation: Verbalizes understanding Follow Up Plan: Follow up as directed by MD. Supplemental Material Given: Written Material Instructed By Phyllis Jay RN. In Department of CARDIOLOGY. documented in this encounterPar[facility]09-[facility]-2025 NoteEducation (EPSMN) ABBEY [id number]) 1960 M Date Time Provider Department 12/04/24 [...] daily. Encounter Status:Closed by PHYLLIS JAY on 12/04/24[facility]08[facility] Telephone encounter Note* Telephone Encounter - Haroon Barber RN - 11/29/2024 4:06 PM EDT EKG received confirming that patient remains in AF, has been scheduled for DCC on 12/05/24. Haroon Barber RN [facility]08-28-2025 Miscellaneous Notes* Telephone Encounter - Haroon Barber RN - 11/29/2024 4:06 PM EDT EKG received confirming that patient remains in AF, has been scheduled for DCC on 12/05/24. Haroon Barber RN * Telephone Encounter - Yara Sutton - 11/29/2024 12:19 PM EDT Images from the original note were not included. Received EKG. This has been uploaded into [employer] documented in this encounterParma [facility] Hospital08-28-2025 Telephone encounter Note * Telephone Encounter - Yara Sutton - 11/29/2024 12:19 PM EDT Images from the original note were not included. Received EKG. This has been uploaded into Epic [facility]08-27-2025 Telephone encounter Note* Telephone Encounter - Monica Daniel RN - 11/28/2024 3:48 PM EDT Pt noted to be scheduled for an EKG and OPD on 12/05/24. Arranging DCC for the same day. Monica Dnaiel RN [facility]08-27-2025 Miscellaneous Notes* Telephone Encounter - Monica [...] 27, 2024 3:49 PM documented in this encounterParma [facility] Hospital08-27-2025 Telephone encounter Note * Telephone Encounter - Monica Daniel RN - 11/28/2024 2:40 PM EDT Please schedule patient for an EKG and OPD and we will arrange for DCC the same day. Monica Daniel RN [facility]08-27-2025 Telephone encounter Note* Telephone Encounter - [...] Barber RN November 27, 2024 3:49 PM [facility]08-25-2025 Telephone encounter Note* Telephone Encounter - Yara Sutton - 11/26/2024 3:06 PM EDT Images from the original note were not included. EKG has been sent to the office. Patient would like some guidance. This has been scanned into epic [facility]08-25-2025 Miscellaneous Notes* Telephone Encounter - Yara [...] done. Apt in Mar. Order faxed to [facility] at [phone] documented in this encounterParma Community [facility] Hospital08-25-2025 Telephone encounter Note * Telephone Encounter - Yara Sutton - 11/26/2024 11:15 AM EDT Patients is calling. is back in AFib and would like to get an EKG done. Apt in Mar. Order faxed to [facility] at [phone] [facility]06-02-2025 Telephone encounter Note* Telephone Encounter - Lana Lemon - 09/03/2024 [...] Transferred her to scheduling office. Lana Magdaleno [facility]06-02-2025 Miscellaneous Notes* Telephone Encounter - Lana [...] scheduling office. Lana Magdaleno documented in this encounterParma Community [facility] Hospital05-06-2025 History of Present illness Narrative* Michael [...] PM EDTAssociated Problem(s): AF (paroxysmal atrial fibrillation) ([facility]/HCC) In NSR and continue medication. Follow up [...] Lipid panel PSA TSH documented in this encounterSt. 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 [place] Sleepiness Scale: Current total score: 224, Previous [...] FOSQ-10??? 2003, Susu CortesFabian Vinny FOSQ-10 - [place] FOSQ-10_[id number]-USori.docx PAP Data Downloaded from Patient's PAP [...] chest pain and palpitat (more content not included)...[facility]02-17-2025 Telephone encounter Note* Telephone Encounter - Haroon [...] concerns at this time. Haroon Barber RN [facility]02-17-2025 Miscellaneous Notes* Telephone Encounter - Haroon [...] EST May 21, 2024 Patient Contact Number: [phone] (home) [phone] (cell) Patient last seen within the last year No Reason For Call: Other Issue: Patients is calling. They will be traveling to [place] and was wondering if making such a long travel that Mr. Lowe should wear compression socks. Please call to advise. Yara Sutton documented in this encounterParma Community General Hospital02-17-2025 Telephone encounter Note * Telephone Encounter - Yara Sutton - 05/21/2024 2:33 PM EST May 21, 2024 Patient Contact Number: [phone] (home) [phone] (cell) Patient last seen within the last year No Reason For Call: Other Issue: Patients is calling. They will be traveling to [place] and was wondering if making such a long travel that Mr. Lowe should wear compression socks. Please call to advise. Yara Sutton [facility]11-11-2024 History of Present illness Narrative* Radha [...] instructions. Left great toe: Site cleansing. Gentian hnung applied. Continue daily care measures: Cleansing followed [...] understanding. Radha Bonilla DPM documented in this [facility]11-11-2024 Instructions* Patient Instructions* Radha Bonilla DPM - 02/13/2024 8:30 AM EST As noted documented in this [facility]11-06-2024 History of Present illness Narrative* Michael Spangler MD - 02/08/2024 11:31 AM ESTAssociated Problem(s): Type 2 diabetes mellitus with hyperglycemia, without long-term current use of insulin ([facility]) Not checking BS and due for A1C. [...] Relevant Orders Hemoglobin A1c documented in this encounterSt. Luke's [id number] History of Present illness Narrative* Radha Bonilla [...] understanding. Radha Bonilla DPM documented in this [facility]10-31-2024 Instructions* Patient Instructions* Radha Bonilla DPM - 02/02/2024 3:30 PM EDT Post-procedure instructions as noted documented in this encounterSt. Luke's [id number] Telephone encounter Note* Telephone Encounter - Yara Sutton - 01/05/2024 7:53 AM EDT Call from patient requesting refill. Requested Prescriptions Pending Prescriptions Disp Refills metoprolol succinate ER (TOPROL XL) 25 mg 24 hr tablet [Pharmacy Med Name: METOPROLOL SUCC ER 25 MGTAB] 180 tablet 3 Sig: take 1 tablet by mouth twice a day Patient last seen 03/08/23 Yara Sutton [facility]10-03-2024 Miscellaneous Notes* Telephone Encounter - Yara Sutton - 01/05/2024 7:53 AM EDT Call from patient requesting refill. Requested Prescriptions Pending Prescriptions Disp Refills metoprolol succinate ER (TOPROL XL) 25 mg 24 hr tablet [Pharmacy Med Name: METOPROLOL SUCC ER 25 MGTAB] 180 tablet 3 Sig: take 1 tablet by mouth twice a day Patient last seen 03/08/23 Yara Sutton documented in this encounterParma Community [facility] Hospital05-06-2024 Telephone encounter Note * Telephone Encounter - Sue Tellez - 08/08/2023 7:22 AM EDT Electronic request for refill. Requested Prescriptions Pending Prescriptions Disp Refills ELIQUIS 5 mg tab(s) [Pharmacy Med Name: ELIQUIS 5 MG TABLET] 180 tablet 3 Sig: take 1 tablet by mouth twice a day Last office visit in was 03/08/2023 Sue Tellez [facility]05-06-2024 Miscellaneous Notes* Telephone Encounter - Sue Tellez - 08/08/2023 7:22 AM EDT Electronic request for refill. Requested Prescriptions Pending Prescriptions Disp Refills ELIQUIS 5 mg tab(s) [Pharmacy Med Name: ELIQUIS 5 MG TABLET] 180 tablet 3 Sig: take 1 tablet by mouth twice a day Last office visit in [place] was 03/08/2023 Sue Tellez documented in this encounterParma Community General Hospital12-05-2023 History of Present illness Narrative* Jessica Winter MD - 03/08/2023 9:58 AM EST Images from the original note were not included. [facility]aca Department of Cardiovascular Medicine SECTION OF CARDIAC PACING and ELECTROPHYSIOLOGY OUTPATIENT VISIT DATE March 08, 2023 OUTPATIENT VISIT TYPE ESTABLISHED PRIMARY CARE PHYSICIAN: Michael Spangler MD ([facility]) [address] [place] [address] REFERRING PHYSICIAN: No referring provider defined for [...] and confirmed the findings of the Physician Interpersonal Communications Professor/Nurse Practitioner or fellow/resident above, with the addition [...] INFORMATION: Jessica Winter MD documented in this encounterParma Community General Hospital10-13-2023 Miscellaneous Notes* Telephone Encounter - Yara Sutton - 01/14/2023 11:56 AM EDT Call from patient requesting refill. Requested Prescriptions Pending Prescriptions Disp Refills metoprolol succinate ER (TOPROL XL) 25 mg 24 hr tablet 180 tablet 3 Sig: Take 1 tablet by mouth two times a day. Patient last seen 03/11/22 Yara Sutton documented in this encounterParma [facility] Hospital06-21-2023 NoteChief Complaint consultation for colonoscopy HPI [...] Mother. Heart disease: Fa (more content not included)...[facility] Comment on above:Result Comment: Electronically Signed By: BRIGETTE KNOWLES, Terrence Avendaño\Date and Time Signed: 09/22/22 20:37 [id number] History of Present illness Narrative* Leny Leon [...] locations: N/A Zio Patch monitor placed by Sales Agent Business Services: Yes Informed patient that this was his final study visit and that he needs to continue his SOC treatments and visits per MD direction. He verbalized understanding. Breastfeeding Educator: Leny Leon Pager #: [phone] documented in this encounterParma [facility] Hospital10-07-2022 Miscellaneous Notes* Telephone Encounter - [place] [facility] [place]/08/2022 2:58 PM EDT Call from pharmacy requesting refill. Requested Prescriptions Pending Prescriptions Disp Refills metoprolol succinate ER (TOPROL XL) 25 mg 24 hr tablet [Pharmacy Med Name: METOPROLOL SUCC ER 25 MGTAB] 180 tablet 3 Sig: TAKE 1 TABLET BY MOUTH TWICE A DAY Patient last seen 09/24/21 Amee Magdaleno documented in this encounterParma Community General Hospital07-06-2022 NoteThe [place], [place] NAME: ABBEY LOWE DATE OF : MEDICAL REC#: [id number] HEALTH PSYCHOLOGIST: [address] [facility] ADMIT DATE: 10/07/2021 06:32:00 DIE CAST TECHNICIAN DATE: 10/07/2021 23:54 DICTATING PHYSICIAN: TERRENCE MACHUCA [...] Machuca MD on 10/12/2021 05:16 PM EDT [facility] Signed and Approved by: DR TERRENCE MACHUCA . 10/12/2021 17:16:00[facility]06-23-2022 History of Present illness Narrative* Nighat EDGE - 09/24/2021 3:58 PM EDT EVENT MONITOR DISPOSABLE PATCH INSTRUCTIONS Patient Name: Abbey Lowe [facility] Number: [id number] Skin prepped and cleansed with alcohol Patch secured to prepped area Monitor Activated Serial #: [id number] Patient Instructed: 1.) Prescribed order timeframe 2.) Bathing guidelines 3.) Usage of event button and diary documentation 4.) Return of monitor at the end of prescribed order 5.) Call with problems [phone] or [phone]. [phone] Patient expresses a good understanding of instructions Nighat EDGE documented in this encounterParma [facility] Hospital06-23-2022 History of Present illness Narrative* Jessica Winter MD - 09/24/2021 3:03 PM EDT Images from the original note were not included. [facility] Department of Cardiovascular Medicine SECTION OF CARDIAC PACING and ELECTROPHYSIOLOGY OUTPATIENT VISIT DATE September 24, 2021 OUTPATIENT VISIT TYPE ESTABLISHED PRIMARY CARE PHYSICIAN: Michael Spangler MD ([facility]) [address] [place] [address] CHIEF COMPLAINT: AF HISTORY OF PRESENT ILLNESS/NURSING [...] stroke prophylaxis without bleeding complications. He has [id number] score of 1 for hypertension. EKG today: [...] stroke prophylaxis without bleeding complications. He has [id number] score of 1 for hypertension. EKG today: Doing very well post ablation with no recurrence. Continue current medications and follow-up in 6 months or sooner if needed. I personally interviewed, confirmed and edited the above information as obtained by others. CONTACT INFORMATION: Jessica Winter MD documented in this encounterParma [facility] Hospital06-20-2022 Miscellaneous Notes* Telephone Encounter - Sue Tellez - 09/21/2021 7:40 AM EDT Electronic request for refill. Pending Prescriptions Disp Refills ELIQUIS 5 MG TABLET 180 tablet 3 Sig: TAKE 1 TABLET BY MOUTH TWICE A DAY LNEA: Yes Last office visit in was 06/23/2021 Sue Tellez documented in this encounterParma Community General Hospital04-07-2022 Miscellaneous Notes* Telephone Encounter - Kristyn [...] call, asking to be contacted [place] Fabian [facility] [place] [facility] 3:28 PM EDT Images from the original note were not included. Full fax scanned into [employer]. documented in this [facility]03-31-2022 Miscellaneous Notes* Telephone Encounter - Isidra De Jesus - 07/02/2021 8:42 AM EDT PA submitted via [employer]. Isidra De Jesus RN * Telephone Encounter - Lana Grigsby [facility] [place] 07/01/2021 1:45 PM EDT Images from the original note were not included. documented in this [facility]03-22-2022 History of Present illness Narrative* GIUSEPPE Garcia - 06/23/2021 11:32 AM EDT HOLTER MONITOR APPLICATION Patient Name: Abbey Lowe [facility] Number: [id number] Chest is cleansed with alcohol Skin prep [...] or 48 hours 6.) Call with problems [phone] OR [phone] Patient expresses good verbal understanding of instructions GIUSEPPE Garcia documented in this [facility]03-22-2022 History of Present illness Narrative* Mariah Cavazos PA-C - 06/23/2021 10:40 AM EDT Study Name: IRB [id number] [facility] PI: Dr. Shannon Dozier Study Visit: Follow [...] visits: No Zio Patch monitor placed by Sales Agent Business Services: Yes Discussed with the patient the importance of follow up in the study and time of next required studyvisit. He verbalized understanding. The patient prefers 6- month follow up in person. Patient contact information reaffirmed and updated. Coordinator contact information provided to the patient. Education provided: Follow up requirements/schedule Materials dispensed: None Breastfeeding Educator: Mariah Cavazos PA-C Pager #: [phone] documented in this encounterParma Community [facility] Hospital03-22-2022 Nurse Note* Miri Cunha RN - [...] No Miri Cunha RN documented in this encounterParma Community General Hospital03-22-2022 History of Present illness Narrative* Jessica Winter MD - 06/23/2021 10:20 AM EDT Images from the original note were not included. [facility] Department of Cardiovascular Medicine SECTION OF CARDIAC PACING and ELECTROPHYSIOLOGY OUTPATIENT VISIT DATE June 23, 2021 OUTPATIENT VISIT TYPE ESTABLISHED PRIMARY CARE PHYSICIAN: Michael Spangler MD ([facility]) [address] [place] [address] CHIEF COMPLAINT: AF HISTORY OF PRESENT ILLNESS/NURSING [...] off AAD Not applicable documented in this encounterParma Community General HospitalEvaluation + Plan note No data available for this section General Surgery [place] Evaluation note* Diagnosis IRB MAP AF PI: Dr. Shannon Dozier- Primary [facility]* Diagnosis Atrial fibrillation, persistent (HCC)- Primary Atrial fibrillation documented in this encounter [facility] note* Diagnosis Atrial fibrillation, persistent (HCC) Atrial fibrillation documented in this encounter [facility] note* Diagnosis Persistent atrial fibrillation (HCC)- Primary Atrial fibrillation IRB MAP AF PI: Dr. Shannon Dozier [facility]* Diagnosis Atrial fibrillation, persistent (HCC)- Primary Atrial fibrillation [facility]* Diagnosis Atrial fibrillation, persistent (HCC)- Primary Atrial fibrillation Obstructive sleep apnea syndrome Obstructive sleep apnea (adult) (pediatric) Left atrial thrombus Other ill-defined heart disease Ejection fraction < 50% Other symptoms involving cardiovascular system documented in this encounter [facility] note* Diagnosis Persistent atrial fibrillation (HCC)- Primary Atrial fibrillation IRB MAP AF PI: Dr. Shannon Dozier documented in this encounter [facility] note* Diagnosis IRB 46 MAP AF PI: Dr. Shannon Dozier- Primary documented in this encounter [facility] note* Diagnosis Persistent atrial fibrillation (HCC)- Primary Atrial fibrillation Primary hypertension Unspecified essential hypertension documented in this encounter [facility] note* Diagnosis Type 2 diabetes mellitus with [...] Difficulty in walking [facility]* Diagnosis Type 2 diabetes mellitus [...] esophagitis Esophageal reflux documented in this encounter [facility]* Diagnosis Type 2 diabetes mellitus [...] Dermatophytosis of nail documented in this encounter [facility] Healthcare[facility] note* Diagnosis Type 2 diabetes mellitus [...] health care facility documented in this encounter [facility] HealthcareEvaluation note* Diagnosis Persistent atrial fibrillation (HCC)- Primary Atrial fibrillation documented in this encounter [facility]* Diagnosis Persistent atrial fibrillation (HCC)- Primary Atrial fibrillation documented in this encounter [facility]* Diagnosis Persistent atrial fibrillation (HCC)- Primary Atrial fibrillation documented in this encounter [facility]* Diagnosis Persistent atrial fibrillation (HCC)- Primary Atrial fibrillation Primary hypertension Unspecified essential hypertension Chronic anticoagulation Long-term (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 Obstructive sleep apnea syndrome Obstructive sleep apnea (adult) (pediatric) Pre-diabetes Other abnormal glucose documented in this encounter [facility]* Diagnosis Onset Date Resolution Status Admit Date Right knee pain acuteOctober 2024 10:56am [facility] Work Phone: Hospital Discharge instructions No data available for this section General Surgery [place] Progress note No data available for this section General Surgery [place] Reason for referral (narrative)* Outpatient Procedure (Routine) - Pending ReviewSpecialtyDiagnoses / ProceduresReferred By Contact Referred To [facility] [place] Diagnoses Atrial fibrillation, persistent (HCC) Procedures ECHO ECHO TTHRC R-T 2D W/WOM-MODE COMPL SPEC&COLR D Jessica Winter MD [address] [place] [address] [facility] [place] [address] Referral IDStatusReasonStart DateExpiration DateVisits RequestedVisits [id number] Auto-Generated Referral [facility] for referral (narrative)* Outpatient Procedure (Routine) - AuthorizedSpecialtyDiagnoses / ProceduresReferred By ContactReferred To [facility] Diagnoses Persistent atrial fibrillation (HCC) Research study patient Procedures ECG COMPLETE ECG ROUTINE ECG W/LEAST 12 LDS W/I&R Jessica Winter MD [address] [place] [place] [id number] [facility] [address] [place] [address] Referral IDStatusReasonStart DateExpiration DateVisits RequestedVisits [id number] Auto-Generated Referral [facility] for referral (narrative)* Outpatient Procedure (Routine) - AuthorizedSpecialtyDiagnoses / ProceduresReferred By ContactReferred To [facility] Diagnoses Persistent atrial fibrillation (HCC) Research study patient Procedures ECG COMPLETE ECG ROUTINE ECG W/LEAST 12 LDS W/I&R Jessica Winter MD [address] [id number] [place] [id number] Referral IDStatusReasonStart DateExpiration DateVisits RequestedVisits [id number] Auto-Generated Referral / [facility] for referral (narrative)* Transition of Care (Routine) - AuthorizedSpecialtyDiagnoses / ProceduresReferred By ContactReferred To [facility] Tsering Saenz APRN.CNP [address] [place] [address] Phone: tel: fax: [facility] [address] [place] [address] Referral IDStatusReasonStart DateExpiration DateVisits RequestedVisits [id number] PCP Requested Referral / [facility] Summary Purpose Family History No Family [...] UP APPT ORDER Jessica Winter MD [address] [place] [address] Referral IDStatusReasonStart DateExpiration DateVisits RequestedVisits [id number] Not Required PCP Requested Referral / Chief [...] and content) DATE CREATED AUTHOR 04/27/2019 [facility] DATE CREATED AUTHOR AUTHOR'S ORGANIZ ATION 02/20/2022 [facility] DATE CREATED AUTHOR AUTHOR'S ORGANIZ ATION 11/18/2022 [facility] DATE CREATED AUTHOR AUTHOR'S ORGANIZ ATION 06/01/2024 [facility] DATE CREATED AUTHOR AUTHOR'S ORGANIZ ATION 08/10/2024 [facility] DATE CREATED AUTHOR AUTHOR'S ORGANIZ ATION 02/03/2025 [facility] Source Comments (unrecognize d section and content) In the event this informatio n is protected by the Federal Confidentiality of Alcohol and Drug Abuse Patient Records regulations: The Federal rules restrict any use of the information to criminally investigate or prosecute any alcohol or drug abuse patient.[facility] HospitalIn the event this information is protected by the Federal Confidentiality of Alcohol and Drug Abuse Patient Records regulations: The Federal rules restrict any use of the information to criminally investigate or prosecute any alcohol or drug abuse patient.[facility] HospitalIn the event this information is protected by the Federal Confidentiality of Alcohol and Drug Abuse Patient Records regulations: The Federal rules restrict any use of the information to criminally investigate or prosecute any alcohol or drug abuse patient.[facility] HospitalIn the event this information is protected by the Federal Confidentiality of Alcohol and Drug Abuse Patient Records regulations: The Federal rules restrict any use of the information to criminally investigate or prosecute any alcohol or drug abuse patient.[facility] HospitalIn the event this information is protected by the Federal Confidentiality of Alcohol and Drug Abuse Patient Records regulations: The Federal rules restrict any use of the information to criminally investigate or prosecute any alcohol or drug abuse patient.[facility] HospitalIn the event this information is protected by the Federal Confidentiality of Alcohol and Drug Abuse Patient Records regulations: The Federal rules restrict any use of the information to criminally investigate or prosecute any alcohol or drug abuse patient.[facility] HospitalIn the event this information is protected by the Federal Confidentiality of Alcohol and Drug Abuse Patient Records regulations: The Federal rules restrict any use of the information to criminally investigate or prosecute any alcohol or drug abuse patient.[facility] HospitalIn the event this information is protected by the Federal Confidentiality of Alcohol and Drug Abuse Patient Records regulations: The Federal rules restrict any use of the information to criminally investigate or prosecute any alcohol or drug abuse patient.[facility] HospitalIn the event this information is protected by the Federal Confidentiality of Alcohol and Drug Abuse Patient Records regulations: The Federal rules restrict any use of the information to criminally investigate or prosecute any alcohol or drug abuse patient.[facility] HospitalIn the event this information is protected by the Federal Confidentiality of Alcohol and Drug Abuse Patient Records regulations: The Federal rules restrict any use of the information to criminally investigate or prosecute any alcohol or drug abuse patient.[facility] HospitalIn the event this information is protected by the Federal Confidentiality of Alcohol and Drug Abuse Patient Records regulations: The Federal rules restrict any use of the information to criminally investigate or prosecute any alcohol or drug abuse patient.[facility] HospitalIn the event this information is protected by the Federal Confidentiality of Alcohol and Drug Abuse Patient Records regulations: The Federal rules restrict any use of the information to criminally investigate or prosecute any alcohol or drug abuse patient.[facility] HospitalIn the event this information is protected by the Federal Confidentiality of Alcohol and Drug Abuse Patient Records regulations: The Federal rules restrict any use of the information to criminally investigate or prosecute any alcohol or drug abuse patient.[facility] HospitalIn the event this information is protected by the Federal Confidentiality of Alcohol and Drug Abuse Patient Records regulations: The Federal rules restrict any use of the information to criminally investigate or prosecute any alcohol or drug abuse patient.[facility] HospitalIn the event this information is protected by the Federal Confidentiality of Alcohol and Drug Abuse Patient Records regulations: The Federal rules restrict any use of the information to criminally investigate or prosecute any alcohol or drug abuse patient.[facility] HospitalIn the event this information is protected by the Federal Confidentiality of Alcohol and Drug Abuse Patient Records regulations: The Federal rules restrict any use of the information to criminally investigate or prosecute any alcohol or drug abuse patient.[facility] HospitalIn the event this information is protected by the Federal Confidentiality of Alcohol and Drug Abuse Patient Records regulations: The Federal rules restrict any use of the information to criminally investigate or prosecute any alcohol or drug abuse patient.[facility] HospitalIn the event this information is protected by the Federal Confidentiality of Alcohol and Drug Abuse Patient Records regulations: The Federal rules restrict any use of the information to criminally investigate or prosecute any alcohol or drug abuse patient.[facility] HospitalIn the event this information is protected by the Federal Confidentiality of Alcohol and Drug Abuse Patient Records regulations: The Federal rules restrict any use of the information to criminally investigate or prosecute any alcohol or drug abuse patient.[facility] HospitalIn the event this information is protected by the Federal Confidentiality of Alcohol and Drug Abuse Patient Records regulations: The Federal rules restrict any use of the information to criminally investigate or prosecute any alcohol or drug abuse patient.[facility] HospitalIn the event this information is protected by the Federal Confidentiality of Alcohol and Drug Abuse Patient Records regulations: The Federal rules restrict any use of the information to criminally investigate or prosecute any alcohol or drug abuse patient.[facility] HospitalIn the event this information is protected by the Federal Confidentiality of Alcohol and Drug Abuse Patient Records regulations: The Federal rules restrict any use of the information to criminally investigate or prosecute any alcohol or drug abuse patient.[facility] HospitalIn the event this information is protected by the Federal Confidentiality of Alcohol and Drug Abuse Patient Records regulations: The Federal rules restrict any use of the information to criminally investigate or prosecute any alcohol or drug abuse patient.[facility] HospitalIn the event this information is protected by the Federal Confidentiality of Alcohol and Drug Abuse Patient Records regulations: The Federal rules restrict any use of the information to criminally investigate or prosecute any alcohol or drug abuse patient.[facility] HospitalIn the event this information is protected by the Federal Confidentiality of Alcohol and Drug Abuse Patient Records regulations: The Federal rules restrict any use of the information to criminally investigate or prosecute any alcohol or drug abuse patient.[facility] HospitalIn the event this information is protected by the Federal Confidentiality of Alcohol and Drug Abuse Patient Records regulations: The Federal rules restrict any use of the information to criminally investigate or prosecute any alcohol or drug abuse patient.[facility] HospitalIn the event this information is protected by the Federal Confidentiality of Alcohol and Drug Abuse Patient Records regulations: The Federal rules restrict any use of the information to criminally investigate or prosecute any alcohol or drug abuse patient.[facility] Reason for Visit (unrecogniz ed section and content) ReasonCommentsResearchIRB 73 MAP AFReasonCommentsHolter Monitor Application 24ReasonCommentsPrior Auth from Cover My MedsReasonCommentsMedication Problem Prior auth denialReasonCommentsRefill RequestReasonCommentsEventzioReason CommentsResearch F/UIRB 76 MAP AF PI: Dr. Shannon DozierReasonComments ProcedureEstablished pt presents today requesting total phenol matricectomy of the LGT.EwcgwwNcbfminxKsfzbc-td8qJtjrlxRoimofecTxel-etYdxntrtbmpg pt presents today for 10-14 day fuv for total phenol matricectomy, LGT.ReasonCommentsPatient QuestionReasonCommentsFollow-up6m f/upLeg crampingFoot InjuryRight foot pain, hard to walkKnee PainBilateral knee painReasonOnset DateCommentsRefill Request 09/03/2024EliquisReasonCommentsPatient UpdateBack in AFibReasonComments AppointmentCardioversionReasonCommentsReceived Outside Medical RecordsEKGReason CommentsPatient EducationEPS- [facility] Care Teams (unrecognized sec tion and content) Team MemberRelationshipSpecialtyStart DateEnd Date Michael Spangler [address] [place] [address] PCP - GeneralFamily Practice07/18/18 Donavon Moralse [address] [place] [address] ReferringCardiology07/06/18Team MemberRelationshipSpecialtyStart DateEnd Date Michael Spangler [address] [place] [address] PCP - GeneralFamily Practice07/18/18 Donavon Morales [address] [facility] [place] [address] ReferringCardiology07/06/18Team MemberRelationshipSpecialtyStart DateEnd Date Michael Spangler [address] [place] [address] PCP - GeneralFamily Practice07/18/18 Donavon Morales [address] [place] [address] ReferringCardiology07/06/18Team MemberRelationshipSpecialtyStart DateEnd Date Michael Spangler [address] [place] [address] PCP - GeneralFamily Practice07/18/18 Carmen Donavon Pickard [address] [facility] [place] [address] ReferringCardiology07/06/18Team MemberRelationshipSpecialtyStart DateEnd Date Michael Spangler [address] [place] [address] PCP - GeneralFamily Practice07/18/18 Donavon Morales [address] [facility] [place] [address] ReferringCardiology07/06/18Team MemberRelationshipSpecialtyStart DateEnd Date DanyelMichael nunes [address] [place] [address] PCP - GeneralFamily Practice07/18/18 Donavon Morales [address] [facility] [place] [address] ReferringCardiology07/06/18Team MemberRelationshipSpecialtyStart DateEnd Date Elian Michael Colt [address] [place] [address] PCP - GeneralFamily Practice07/18/18 Donavon Morales [address] [facility] [place] [address] ReferringCardiology07/06/18Team MemberRelationshipSpecialtyStart DateEnd Date Keeleylinda Michael Gregory [address] [place] [address] PCP - GeneralFamily Practice07/18/18 Donavon Morales [address] [facility] [place] [address] ReferringCardiology07/06/18Team MemberRelationshipSpecialtyStart DateEnd Date Michael Spangler [address] [place] [address] PCP - GeneralFamily Practice07/18/18 CarmenJossekenyon Pickard [address] [facility] [place] [address] ReferringCardiology07/06/18Team MemberRelationshipSpecialtyStart DateEnd Date Michael pSangler [address] [place] [address] PCP - GeneralFamily Practice07/18/18 Donavon Morales [address] [facility] [place] [address] ReferringCardiology07/06/18Team MemberRelationshipSpecialtyStart DateEnd Date Elian Michael Colt [address] [place] [address] PCP - GeneralFamily Medicine07/18/18 Carmen Donavon Pickard [address] [facility] [place] [address] ReferringCardiology07/06/18Team MemberRelationshipSpecialtyStart DateEnd Date Elian Michael Gregory [address] [place] [address] PCP - GeneralFamily Medicine07/18/18 CarmenJossekenyon Pickard [address] [facility] [place] [address] ReferringCardiology07/06/18Team MemberRelationshipSpecialtyStart DateEnd Date Michael Spangler [address] [place] [address] PCP - GeneralFamily Medicine07/18/18 Donavon Morales MD [address] [facility] [place] [address] ReferringCardiology07/06/18Team MemberRelationshipSpecialtyStart DateEnd Date Michael Spangler [address] [place] [address] PCP - GeneralFamily Medicine07/18/18 Donavon Morales MD [address] [facility] [place] [address] ReferringCardiology07/06/18Team MemberRelationshipSpecialtyStart DateEnd Date Michael Spangler [address] [place] [address] PCP - GeneralFamily Medicine07/18/18 Donavon Morales MD [address] [facility] [place] [address] ReferringCardiology07/06/18Team MemberRelationshipSpecialtyStart DateEnd Date Michael Spangler [address] [place] [address] PCP - GeneralFamily Medicine07/18/18 Donavon Morales MD [address] [facility] [place] [address] ReferringCardiology07/06/18Team MemberRelationshipSpecialtyStart DateEnd Date Michael Spangler [address] [place] [address] PCP - GeneralFamily Medicine07/18/18 Donavon Morales MD [address] [facility] [place] [address] ReferringCardiology07/06/18Team MemberRelationshipSpecialtyStart DateEnd Date Michael Spangler MD [address] [place] [address] PCP - [facility] [employer]04/04/23 Michael Spangler MD [address] [place] [address] PCP - GeneralFamily Medicine08/10/23Team MemberRelationshipSpecialtyStart DateEnd Date Michael Spangler MD [address] [place] [address] PCP - [facility] [employer]04/04/23 Michael Spangler MD [address] [place] [address] PCP - GeneralFamily Medicine08/10/23Team MemberRelationshipSpecialtyStart DateEnd Date Michael Spangler MD [address] [place] [address] PCP - [facility] [employer]04/04/23 Michael Spangler MD [address] [place] [address] PCP - GeneralFamily Medicine08/10/23Team MemberRelationshipSpecialtyStart DateEnd Date Michael Spangler MD [address] [place] [address] PCP - [facility] [employer]04/04/23 Michael Spangler MD [address] [place] [address] PCP - GeneralFamily Medicine08/10/23Team MemberRelationshipSpecialtyStart DateEnd Date Michael Spangler MD [address] [place] [address] PCP - [facility] [employer]04/04/23 Michael Spangler MD [address] [place] [address] PCP - GeneralFamily Medicine08/10/23Team MemberRelationshipSpecialtyStart DateEnd Date Michael Spangler MD [address] [place] [address] PCP - [facility] [employer]04/04/23 Michael Spangler MD [address] [place] [address] PCP - GeneralFamily Medicine08/10/23Team MemberRelationshipSpecialtyStart DateEnd Date Michael Spangler MD [address] [place] [address] PCP - [employer]04/04/23 Michael Spangler MD [address] [place] [address] PCP - GeneralFamily Medicine08/10/23Team MemberRelationshipSpecialtyStart DateEnd Date Michael Spangler MD [address] [place] [address] PCP - GeneralFamily Medicine07/18/18 Donavon Morales MD [address] [facility] [place] [address] ReferringCardiology07/06/18Team MemberRelationshipSpecialtyStart DateEnd Date Michael Spangler MD [address] [place] [address] PCP - [facility] [employer]04/04/23 Michael Spangler MD [address] [place] [address] PCP - GeneralFamily Medicine08/10/23Team MemberRelationshipSpecialtyStart DateEnd Date Michael Spangler MD [address] [place] [address] PCP - [facility] [employer]04/04/23 Michael Spangler MD [address] [place] [address] PCP - GeneralFamily Medicine08/10/23Team MemberRelationshipSpecialtyStart DateEnd Date Michael Spangler MD [address] [place] [address] PCP - [employer]04/04/23 Michael Spangler MD [address] [place] [address] PCP - GeneralFamily Medicine08/10/23Team MemberRelationshipSpecialtyStart DateEnd Date Michael Spangler MD [address] [place] [address] PCP - GeneralFamily Medicine07/18/18 Donavon Morales MD [address] [facility] [place] [address] ReferringCardiology07/06/18Team MemberRelationshipSpecialtyStart DateEnd Date Michael Spangler MD [address] [place] [address] PCP - GeneralFamily Medicine07/18/18 Donavon Morales MD [address] [facility] [place] [address] ReferringCardiology07/06/18Team MemberRelationshipSpecialtyStart DateEnd Date Michael Spangler MD [address] [place] [address] PCP - GeneralFamily Medicine07/18/18 Donavon Morales MD [address] [facility] [place] [address] ReferringCardiology07/06/18Team MemberRelationshipSpecialtyStart DateEnd Date Michael Spangler MD [address] [place] [address] [facility]18 Donavon Morales MD [address] [facility] [place] [address] ReferringCardiology07/06/18 Jessica Winter MD [address] [place] [address] Cardiology11/26/24Team MemberRelationshipSpecialtyStart DateEnd Date Michael Spangler MD [address] [place] [address] PCP - [employer]04/04/23 Michael Spangler MD [address] [place] [address] PCP - [facility]08/10/23Team MemberRelationshipSpecialtyStart DateEnd Date Michael Spangler MD [address] [place] [address] PCP - GeneralFamily Medicine07/18/18 Donavon Morales MD [address] [facility] [place] [address] ReferringCardiology07/06/18 Jessica Winter MD [address] [place], [place] [id number] Cardiology11/26/24Team MemberRelationshipSpecialtyStart DateEnd Date Michael Spangler MD [address] [place] [address] [facility]07/18/18 Donavon Morales MD [address] [facility] [place] [address] ReferringCardiology07/06/18 Jessica Winter MD [address] [place] [address] Cardiology11/26/24Team MemberRelationshipSpecialtyStart DateEnd Date Michael Spangler MD [address] [place] [address] [facility]07/18/18 Donavon Morales MD [address] [facility] [place] [address] ReferringCardiology07/06/18 Jessica Winter MD [address] [place] [address] Cardiology11/26/24Team MemberRelationshipSpecialtyStart DateEnd Date Michael Spangler MD [address] [place] [address] [facility]07/18/18 Donavon Morales MD [address] [facility] [place] [address] ReferringCardiology07/06/18 Jessica Winter MD [address] [place] [address] Cardiology11/26/24 Jessica Winter MD [address] [place], [place] [address] Primary Staff PhysicianCardiology12/05/24 Team Status: Active Member [...] DateEnd Date Michael Spangler MD PCP - [facility] Puhzaxrq49/1/235 Michael Spangler MD [address] [place] [address] [facility] Michael Spangler MD [address] [place] [address] PCP - [facility] Medicine08/10/23 Team Status: Active Member Role/Relationship Status Dates Michael Spangler MD Primary Care Provider Active Team Status: Active Member Role/Relationship Status Dates Michael Spangler MD Primary Care Provider Active S tart: December 05, 2024 Nina Quach ProviderActiveStart: December 05, 2024 Team Status: Inactive Member Role/Relationship Status Dates Michael Spangler MD Primary Care Provider Active S tart: January 07, 2025 End: January 07, 2025[facility] Danyelosmanilinda ROYALlydia ProviderActiveStart: January 07, 2025 End: January 07, 2025 Team Status: Inactive Member Role/Relationship Status Dates Michael Spangler MD Primary Care Provider Active S tart: February 08, 2025 End: February 08, 2025[facility] ROYAL Spanglerlydia ProviderActiveStart: February 08, 2025 End: [...] BE BASED ON THE PRIMARY CLINICAL RECORDS. [facility] [employer] [facility]. provides no warranty or guarantee of the accuracy or completeness of information in this document.
--- OUTSIDE RECORDS SUMMARY | 2025-03-16 09:56 | XMS_ITS | Clinical Summary ---
Author Organization [facility] lin Address [address] [place] [address] Care Team Providers Care Print Shop Assistant Name Role Phone No, Pcp INTERPRETER DEAF Primary Care Provider Unavailabl e Social History Tobacco UseTypesPacks/DayYears UsedDateSmoking Tobacco: Never AssessedSex and Gender InformationValueDate RecordedSex Assigned at BirthNot on fileLegal Sex Male01/05/2020 1:49 PM EDTGender IdentityNot on fileSexual OrientationNot on file Plan of Treatment Not on file Medical Devices Not on file Care Teams Team MemberRelationshipSpecialtyStart DateEnd Date No, Pcp, INTERPRETER DEAF N/A Do not use PCP - Generalmily Jlplyeav97/4/20
--- OUTSIDE RECORDS SUMMARY | 2025-03-16 09:57 | XMS_ITS | Clinical Summary ---
Author Organization [facility] Address [address] [place] [address] Care Team Providers Care Driver Medic Name Role Phone Tom Bustillos MD Unavailable [phone] Michael Plummer MD Primary Care Provider Jessica Winter MD Unavailable [phone] Allergies Active AllergyReactionsCriticalityNoted YjlnKusdfgdeFrkcbrcxwsbZjspb49/31/2023 Medications MedicationSigDispense QuantityRefillsLast FilledStart DateEnd DateStatus apixaban [...] 5Active Active Problems ProblemNoted DateDiagnosed DateResearch study itrtchm4603/18/2021Obstructive sleep apnea Overview (05/27/2022): AHI=56.5 events/hour; Elan SaO2=79.0%; Ajvdnd=207.9 lbs; BMI=34.7 kg/m2, on 03/05/2018 at [facility] Left atrial tnvwyybz42/01/2018 Overview (05/04/2022): per echo Atrial vbjddjuxxtxg32/20/2018 Overview (05/04/2022): Baseline ECG: AF, QTc 440, iRBBB (QRSd 94) CrCl: 90 08/14/2018 - started Tikosyn 500 mcg 08/16/2018 - successful cardioversion to NSR Discharge on Tikosyn 500 mcg Q12 Renal abszziudmz24/20/2018 Immunizations ImmunizationAdministration DatesNext DueCovid (Pfizer) Bivalent Booster =>12 YRS 02/06/2022Tdap07/06/2010Unspecified Sars-Cov-2 Amjrkjerytn92/18/2022,07/09/2020, 06/18/2020 Family History Medical HistoryRelationNameCommentsCOPDBrotherDiabetesBrotherDiabetesFatherHeart diseaseFatherHypothyroidismFatherHeart diseaseMotherRelationNameStatusComments BrotherFatherDeceasedMotherDeceased Social History Tobacco UseTypesPacks/DayYears UsedDateSmoking Tobacco: FormerCigarettesQuit: 01/30/2018Passive Smoke Exposure: PastSmokeless Tobacco: NeverAlcohol Use Standard Drinks/WeekCommentsYes0 (1 standard drink = 0.6 oz pure alcohol)DC Safety & EnvironmentAnswerDate RecordedFear of Current or Ex-PartnerNot on file 05/26/2023Emotionally AbusedNot on file05/26/2023hysically AbusedNot on file 05/26/2023Sexually AbusedNot on file05/26/2023hysically or Sexually AbusedNot on file05/26/2023Sex and Gender InformationValueDate RecordedSex Assigned at BirthNot on fileLegal HceTrhc3409/30/2021 9:47 PM EDTGender IdentityNot on file Sexual OrientationNot on file Last Filed Vital Signs Vital SignReadingTime TakenCommentsBlood Ctszwmik524/60005/30/2024 10:01 AM EST Jyyoi923405/30/2024 10:01 AM ESTTemperature--Respiratory Aeby634505/30/2023 9:42 AM ESTOxygen Ekmjswtgpq37%05/30/2024 10:01 AM ESTInhaled Oxygen Concentration-- Wadbkx623 kg (250 lb)05/30/2024 10:01 AM COEWsowht188.3 cm (5' 11 )05/30/2024 10:01 AM ESTBody Mass Index34.8705/30/2024 10:01 AM EST Plan of Treatment DateTypeDepartmentCare Team (Latest Contact Info)Xcwbdhnrfpp13/26/2026 2:15 PM ESTFollow-Up [facility] [address] [place] [address] Tom Bustillos MD [address] [facility] [address] [facility] [place] [address] Health MaintenanceDue DateLast DoneCommentsCT Nqhibdbwocpb88/05/1962Colonoscopy 2Diabetes: Hemoglobin A1C1961FIT-DNA1961FOBT1961 Eizhnxjrjxtqq63/05/1962Diabetes: Retinopathy Nqpfogjmh60/05/1972Depression Aqhsewgtw33/05/1974Diabetes: Urine Protein Djvlriuso07/05/1981Zoster Vaccines (1 of 2)09/07/2011dult Pqdofvz81/07/2010Colorectal Cancer Screening 08/19/2021FIT/OVID-19 Vaccine ( season)2024 02/06/2022, [...] DateEnd Date Michael Plummer MD [address] [place] [address] PCP - General05/28/22 Tom Bustillos MD [address] [facility] [address] [facility] [place] [place] [address] Consulting PhysicianSle Medicine08/02/18 Jessica Winter MD [address] [place] [address] CardiologistCardiology05/28/22
[2025-03-16 10:26] LABS: Hematocrit 44.7 % (42.0-54.0); Hemoglobin 15.0 g/dL (14.0-18.0); Immature Granulocytes Abs Auto 0.01 10^3/uL (0.00-0.03); Immature Granulocytes Pct Auto 0.1 % (0.0-0.5); Lymphocytes Absolute Auto 1.9 10^3/uL (1.2-3.8); Mean Corpuscular HGB Conc 33.6 g/dL (29.9-35.2); Mean Corpuscular Hemoglobin 28.2 pg (25.9-34.0); Mean Corpuscular Volume 84.2 fL (80.0-94.0); Platelet Count 186 10^3/uL (150-450); Red Blood Count 5.31 10^6/uL (4.70-6.10); White Blood Count 6.9 10^3/uL (4.0-11.0)
[2025-03-16 10:50] LABS: Alanine Aminotransferase 82 U/L (16-63); Albumin Globulin Ratio 1.3; Albumin Level 3.7 g/dL (3.4-5.0); Alkaline Phosphatase 53 U/L (46-116); Anion Gap 8.8; Aspartate Amino Transferase 37 U/L (15-37); Blood Urea Nitrogen 19.0 mg/dL (7.0-18.0); Calcium 8.4 mg/dL (8.5-10.1); Carbon Dioxide 27.2 mmol/L (21.0-32.0); Chloride 102 mmol/L (98-107); Estimated GFR (African America >60 (>=60 mL/min/1.73m^2); Estimated GFR (Non-African Ame >60 (>=60 mL/min/1.73m^2); Globulin 2.8 g/dL; Glucose 161 mg/dL (74-106); Potassium 4.0 mmol/L (3.5-5.1); Sodium 134 mmol/L (136-145); Total Protein 6.5 g/dL (6.4-8.2)
== END 2025-03-16 09:54 | disposition home or self-care (01) ==
LOC: LAB 09:53
PROVIDERS: PCP Family Medicine; Visit Provider Family Medicine
DX: Z79.899 Other long term (current) drug therapy (principal); E11.65 Type 2 diabetes mellitus with hyperglycemia
CPT/HCPCS: 36415; 80053; 83036; 85025

== ENCOUNTER 2025-03-25 11:10 | Inpatient (IN) | payer BC, SELFPAY ==
[2025-03-25] VITALS (37 sets, daily range): BP systolic 97–139; BP diastolic 56–89; PULSE 66–150; TEMP 36.4–36.6; O2SAT 93–99; BMI 34.2; BMI 34.6
--- NOTE | 2025-03-25 11:36 | ECG_ITS ---
[facility] Test Date: 2025-03-25 Pat Name: ABBEY ROBERT Department: Room: - Gender: Male Finish Inspector: : 1960 Requested By: 1030 Order Number: [id number] Reading MD: CARL RUIZ M.D. Measurements Intervals [place] Rate: 142 P: -43563 TN: -85204 QRS: 31 QRSD: 84 T: 90 QT: 286 QTc: 368 Interpretive Statements 38312 Atrial fibrillation with rapid ventricular response [address] depression, probably digitalis effect abnormal ECG Compared to ECG 11/26/2024 10:50:55 ST (T wave) deviation now present Incomplete right bundle-branch block no longer present Electronically Signed On 03-25-2025 19:27:42 EST by CARL RUIZ M.D.
--- NOTE | 2025-03-25 11:36 | XR_ITS ---
The [address] [address] Patient Name: ABBEY ROBERT MRN: [id number] date: 1960 Sex: M Assigned Patient Location: ER Current Patient Location: ER Accession/Order Number: [id number] Exam Date: 03/25/2025 11:44 Report Date: 03/25/2025 11:59 At the request of: PERRY FLETCHER MD Procedure: XR chest 1V PA CHEST: CLINICAL HISTORY: Palpitations COMPARISON: None Enlarged cardiomediastinal silhouette. Perihilar pulmonary vascular congestion. Left base opacity may represent a small left-sided effusion versus prominent epicardial fat pad. Otherwise mid and upper lungs are clear. No right-sided effusion. Negative for Pneumothorax. XR/XR chest 1V IMPRESSION: Findings suggestive of CHF. Impression dictated by: Major Keating M.D. 03/25/2025 11:59 AM Dictation Location: [place] [address] Electronically authenticated by: [id number] Y Date: 03/25/2025 11:59
--- NOTE | 2025-03-25 11:38 | ED.GENADUL1 ---
HPI HPI - General Adult General Chief complaint: Arrhythmia/Palpitations Stated complaint: A FIB SYMPTOMS SOB Time Seen by Provider: 03/25/25 11:33 Source: patient and family Mode of arrival: walk-in Limitations: no limitations History of Present Illness HPI narrative: 64-year-old male presented to the emergency department for palpitations. It began last night. He has a history of atrial fibrillation and had cardioversion done about a month ago. He does not have chest pain. He has been taking all of his medications. Symptom has been present continuously. Related Data Home Medications ?Medication ?Instructions ?Recorded ?Confirmed apixaban 5 mg tablet (Eliquis) 5 mg PO BID 10/12/22 10/27/24 cholecalciferol (vitamin D3) 50 2,000 unit PO DAILY 10/12/22 10/27/24 mcg (2,000 unit) capsule (Vitamin D3) lisinopril 20 mg tablet 20 mg PO DAILY 10/12/22 10/27/24 metformin 500 mg tablet,extended 500 mg PO BID 10/12/22 10/27/24 release 24 hr metoprolol succinate 25 mg 25 mg PO DAILY 10/12/22 10/27/24 tablet,extended release 24 hr atorvastatin 40 mg tablet 40 mg PO DAILY 10/27/24 10/27/24 meloxicam 15 mg tablet 15 mg PO DAILY 10/27/24 10/27/24 semaglutide 1 mg/dose (4 mg/3 mL) 1 mg subcut .qweekly 10/27/24 10/27/24 subcutaneous pen injector (Ozempic) Allergies Allergy/AdvReac Type Severity Reaction Status Date / Time Penicillins Allergy Unknown unknown Verified 03/25/25 11:25 Review of Systems ROS Narrative A ten point review of systems is negative except as noted above. [facility] Medical History (Updated 03/25/25 @ 13:02 by Cesar Szymanski MD) History of cardioversion ?Z92.89 - Personal history of other medical treatment (ICD-10) Hx of sigmoidoscopy ?Z98.890 - Other specified postprocedural states (ICD-10) Tubular adenoma of colon ?D12.6 - Benign neoplasm of colon, unspecified (ICD-10) Sleep apnea ?G47.30 - Sleep apnea, unspecified (ICD-10) History of colonic polyps ?Z86.010 - Personal history of colonic polyps (ICD-10) Morbid obesity ?E66.01 - Morbid (severe) obesity due to excess calories (ICD-10) Hypertension ?I10 - Essential (primary) hypertension (ICD-10) Chronic anticoagulation ?Z79.01 - terminal operator (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 (ICD-10) Atrial fibrillation ?I48.91 - Unspecified atrial fibrillation (ICD-10) Surgical History (Updated 10/13/22 @ 13:49 by Keila Dougherty) Hx of tonsillectomy ?Z90.89 - Acquired absence of other organs (ICD-10) History of cardiac radiofrequency ablation ?Z98.890 - Other specified postprocedural states (ICD-10) H/O colonoscopy ?Z98.890 - Other specified postprocedural states (ICD-10) Family History (Updated 10/13/22 @ 13:39 by Keila Dougherty) Other Family history of CHF (congestive heart failure) Family history of COPD (chronic obstructive pulmonary disease) Family history of cancer Family history of diabetes mellitus Family history of hypertension Family history of myocardial infarction Social History (Updated 10/13/22 @ 13:49 by Keila Dougherty) Within the past year, how often did you have a drink containing alcohol: monthly or less Smoking status: Former smoker Non-prescribed substance use: denies use Highest level of school completed/degree received: high school graduate Little interest or pleasure in doing things: not at all Feeling down, depressed, or hopeless: not at all Exam Narrative Exam Narrative: Nurses note and vital signs reviewed General:The patient appears well and in no apparent distress.Patient is resting comfortably on cart. Skin:Warm, dry, no pallor noted.There is no rash noted. Head:Normocephalic, atraumatic Eye: Normal conjunctiva, no drainage Ears, Nose, Mouth, and Throat: oral mucosa is moist. Nares patent. Cardiovascular: Irregularly irregular and tachycardic Respiratory:Patient is in no distress, no accessory muscle use, lungs are clear to auscultation, no wheezing, rales or rhonchi Back:non-tender GI: Soft and nontender Musculoskeletal: 1+ edema present in both ankle Neurological:A&O, normal speech Psychiatric:Cooperative Constitutional Vital Signs, click to edit/add: Last Vital Signs Temp 98 F 03/25/25 11:25 Pulse 76 03/25/25 11:50 Resp 15 03/25/25 11:50 BP 125/70 03/25/25 12:46 Pulse Ox 96 03/25/25 11:50 O2 Del Method Room Air 03/25/25 11:25 Course Vital Signs Vital signs: Vital Signs Temperature 98 F 03/25/25 11:25 Pulse Rate 135 H 03/25/25 11:25 Respiratory Rate 16 03/25/25 11:25 Blood Pressure 139/88 03/25/25 11:25 Pulse Oximetry 96 03/25/25 11:25 Oxygen Delivery Method Room Air 03/25/25 11:25 Temperature 98 F 03/25/25 11:25 Pulse Rate 76 03/25/25 11:50 Respiratory Rate 15 03/25/25 11:50 Blood Pressure 125/70 03/25/25 12:46 Pulse Oximetry 96 03/25/25 11:50 Oxygen Delivery Method Room Air 03/25/25 11:25 Medical Decision Making MDM Narrative Medical decision making narrative: Patient presented with atrial fibrillation and RVR. He was given IV Cardizem bolus and placed on drip with good control of his heart rate. He is already on Eliquis. Chest x-ray and his symptoms are consistent with CHF which he reports he has never had previously. He believes his last echo was in [place] over a year ago. He has no chest pain now. He is being admitted. Treatment diagnosis and disposition were discussed with the patient. Differential Diagnosis Differential Diagnosis: Fibrillation, RVR, CHF, [place] Lab Data Lab results reviewed: Yes I reviewed the patient's lab results Labs: Lab Results 03/25/25 Range/Units 11:34 WBC 9.7 (4.0-11.0) 10^3/uL RBC 5.55 (4.70-6.10) 10^6/uL Hgb 15.7 (14.0-18.0) g/dL Hct 46.7 (42.0-54.0) % MCV 84.1 (80.0-94.0) fL MCH 28.3 (25.9-34.0) pg MCHC 33.6 (29.9-35.2) g/dL RDW 13.5 (11.0-15.0) % Plt Count 168 (150-450) 10^3/uL MPV 9.8 (9.5-13.5) fL Neut % (Auto) 63.2 (43.0-75.0) % Lymph % (Auto) 26.3 (20.5-60.0) % [place] % (Auto) 7.8 (1.7-12.0) % Eos % (Auto) 1.8 (0.9-7.0) % Baso % (Auto) 0.6 (0.2-2.0) % Neut # (Auto) 6.1 (1.4-6.5) 10^3/uL Lymph # (Auto) 2.6 (1.2-3.8) 10^3/uL [place] # (Auto) 0.8 (0.3-0.8) 10^3/uL Eos # (Auto) 0.2 (0.0-0.7) 10^3/uL Baso # (Auto) 0.1 (0.0-0.1) 10^3/uL Abs Immat Gran (auto) 0.03 (0.00-0.03) 10^3/uL Imm/Tot Granulo (auto) 0.3 (0.0-0.5) % Sodium 141 (136-145) mmol/L Potassium 4.2 (3.5-5.1) mmol/L Chloride 104 (98-107) mmol/L Carbon Dioxide 28.2 (21.0-32.0) mmol/L Anion Gap 13.0 BUN 27.0 H (7.0-18.0) mg/dL Creatinine 1.21 (0.70-1.30) mg/dL Est GFR ( Amer) >60 (>=60 mL/min/1.73m^2) Est GFR (Non-Af Amer) >60 (>=60 mL/min/1.73m^2) BUN/Creatinine Ratio 22.3 Glucose 239 H (74-106) mg/dL Calcium 8.7 (8.5-10.1) mg/dL Magnesium 1.6 L (1.8-2.4) mg/dL Troponin I High Sens 13.6 (4.0-76.1) pg/mL Imaging Data Chest x-ray: Radiologist's impression: ITS Impressions Chest X-Ray 03/25/25 11:36 IMPRESSION: Findings suggestive of CHF. Impression dictated by: Major Keating M.D. 03/25/2025 11:59 AM Dictation Location: [place] [address] Electronically authenticated by: [id number] Y Date: 03/25/2025 11:59 ECG Data Attestation: I personally reviewed and interpreted this ECG as follows: (EKG on my interpretation shows atrial fibrillation with RVR, rate 142.) Critical Care Time Critical Care Time Critical Care Time: Yes Total Critical Care Time: 35 Attestation: Due to the high probability of sudden and clinically significant deterioration in the patient's condition he/she required the highest level of my preparedness to intervene urgently I provided critical care time including documentation time, medication orders and management, reevaluation, vital sign assessment, ordering and reviewing of lab tests, ordering and reviewing of x-ray studies, and admission orders. Aggregate critical care time is 35 minutes including only time during which I was engaged in work directly related to his/her care and did not include time spent treating other patients simultaneously. Discharge Plan Discharge Chief Complaint: Arrhythmia/Palpitations Clinical Impression: Atrial fibrillation with RVR, Congestive heart failure Patient Disposition: Admitted As Inpatient Time of Disposition Decision: 13:02 Condition: Fair
[2025-03-25 11:44] LABS: Hematocrit 46.7 % (42.0-54.0); Hemoglobin 15.7 g/dL (14.0-18.0); Immature Granulocytes Abs Auto 0.03 10^3/uL (0.00-0.03); Immature Granulocytes Pct Auto 0.3 % (0.0-0.5); Lymphocytes Absolute Auto 2.6 10^3/uL (1.2-3.8); Mean Corpuscular HGB Conc 33.6 g/dL (29.9-35.2); Mean Corpuscular Hemoglobin 28.3 pg (25.9-34.0); Mean Corpuscular Volume 84.1 fL (80.0-94.0); Platelet Count 168 10^3/uL (150-450); Red Blood Count 5.55 10^6/uL (4.70-6.10); White Blood Count 9.7 10^3/uL (4.0-11.0)
[2025-03-25] MEDS: DILTIAZEM HCL 25 MG/5 ML VIAL 20 MG IV (11:46)
[2025-03-25 11:54] LABS: Anion Gap 13.0; Blood Urea Nitrogen 27.0 mg/dL (7.0-18.0); Calcium 8.7 mg/dL (8.5-10.1); Carbon Dioxide 28.2 mmol/L (21.0-32.0); Chloride 104 mmol/L (98-107); Estimated GFR (African America >60 (>=60 mL/min/1.73m^2); Estimated GFR (Non-African Ame >60 (>=60 mL/min/1.73m^2); Glucose 239 mg/dL (74-106); Magnesium 1.6 mg/dL (1.8-2.4); Potassium 4.2 mmol/L (3.5-5.1); Sodium 141 mmol/L (136-145)
--- OUTSIDE RECORDS SUMMARY | 2025-03-25 12:19 | XMS_ITS | Encounter Summary ---
Author Organization [facility] Address [address] [place] [address] Care Team Providers Care Industrial Gas Service Helper Name Role Phone Donavon Morales MD Unavailable Michael Plummer MD Primary Care Provider [phone] Jessica Winter MD Unavailable [phone] Jessica Winter MD Unavailable [phone] Source Comments In the event this information is protected by the Federal Confidentiality of Alcohol and Drug AbusePatient Records regulations: The Federal rules restrict any use of the information to criminally investigate or prosecute any alcohol or drug abuse patient.[facility] Encounter Details DateTypeDepartmentCare Team (Latest Contact Info)Hsfkkvswovy17/21/2025 Get Medical Advice Cardiology [address] [place], [place] [id number] Jessica Winter MD [address] [place] [address] Afib Social History Tobacco UseTypesPacks/DayYears UsedDateSmoking Tobacco: ZrpiczYijobmdeib9Cyfn: 2018Smokeless Tobacco: NeverAlcohol UseStandard Drinks/WeekCommentsYes0 (1 standard drink = 0.6 oz pure alcohol)rarelyPHQ-2AnswerDate RecordedPHQ2 Score0 11/13/2018AUDIT-CAnswerDate RecordedQ1: How often do you have a drink containing alcohol?Monthly or less03/07/2025Q2: How many drinks containing alcohol do you have on a typical day when you are drinking?1 or Q3: How often do you have six or more drinks on one occasion?Never03/07/2025rea Deprivation Index AnswerDate RecordedNational Score (1-100), lower number is lower risk68 03/08/2023State Score (1-10), lower number is lower bmlo01805/09/2022ata from: https://www.neighborhoodatlas.[facility].edu/. Last address used for quyitpbmfev[address]/09/2022Sex and Gender InformationValueDate RecordedSex Assigned at QtzagKlet21/04/2022 6:28 PM ESTLegal GyxMhix8307/06/2018 11:58 AM EDTGender XaumhwcoGupx48/04/2022 6:28 PM ESTSexual OrientationStraight 04/07/2021 6:28 PM ESTdocumented as of this encounter Functional Status * Are you deaf or do you have serious difficulty hearing?AnswerDate of IkosgidsktYlihcrZn61/03/2025 11:04 AM Estefany Bear RN * Are you blind or do you have serious difficulty seeing, even when wearing glasses?AnswerDate of YiaxvyizsgPgwnugPx16/03/2025 11:04 AM Estefany Bear RN * Do you have serious difficulty walking or climbing stairs?AnswerDate of RyomimfolwNhgzklSa88/03/2025 11:04 AM Estefany Bear RN * Do you have difficulty dressing or bathing?AnswerDate of AssessmentAuthorNo 12/05/2024 11:04 AM Estefany Bear RN * Because of a physical, mental, or emotional condition, do you have difficulty doing errands alone such as visiting a doctor's office or shopping?AnswerDate of CktojafesvOpsmirVj20/03/2025 11:04 AM Estefany Bear RN documented as of this encounter Mental Status * Because of a physical, mental, or emotional condition, do you have serious difficulty concentrating, remembering, or making decisions?AnswerEntry Date WfpnxsWk60/03/2025 11:04 AM Estefany Bear RN documented in this encounter Plan of Treatment Not on file documented as of this encounter Goals GoalPatient Goal TypeAssociated ProblemsRecent ProgressPatient-Stated?Author Blood Pressure < 130/80 Blood Jrmpbkoz328/72(03/07/2025 9:57 AM EST)Sue Puentedocumented as of this encounter Visit Diagnoses Not on filedocumented in this encounter Care Teams Team MemberRelationshipSpecialtyStart DateEnd Date Michael Plummer MD [address] [place] [address] PCP - GeneralFamily Medicine07/18/18 Donavon Morales MD [address] [place] [address] ReferringCardiology07/06/18 Jessica Winter MD [address] [place] [address] Cardiology11/26/24 Jessica Winter MD [address] [place] [address] Primary Staff PhysicianCardiology12/05/24documented as of this encounter
--- OUTSIDE RECORDS SUMMARY | 2025-03-25 12:19 | XMS_ITS | Clinical Summary ---
Author Organization [facility] Address [address] [place] [address] Care Team Providers Care Client Liaison Name Role Phone Tom Bustillos MD Unavailable [phone] Michael Plummer MD Primary Care Provider Jessica Winter MD Unavailable Allergies Active AllergyReactionsCriticalityNoted GqkjCqpesoisFpzvvzujtrmEpbqm33/31/2023 Medications MedicationSigDispense QuantityRefillsLast FilledStart DateEnd DateStatus apixaban [...] 5Active Active Problems ProblemNoted DateDiagnosed DateResearch study ebqgqsc4603/18/2021Obstructive sleep apnea Overview (05/27/2022): AHI=56.5 events/hour; Elan SaO2=79.0%; Akkgmg=356.9 lbs; BMI=34.7 kg/m2, on 03/05/2018 at [facility] Left atrial yoxwxizw40/01/2018 Overview (05/04/2022): per echo Atrial qbwvcdxqnimj02/20/2018 Overview (05/04/2022): Baseline ECG: AF, QTc 440, iRBBB (QRSd 94) CrCl: 90 08/14/2018 - started Tikosyn 500 mcg 08/16/2018 - successful cardioversion to NSR Discharge on Tikosyn 500 mcg Q12 Renal jtkjonhrte34/20/2018 Immunizations ImmunizationAdministration DatesNext DueCovid (Pfizer) Bivalent Booster =>12 YRS 02/06/2022Tdap07/06/2010Unspecified Sars-Cov-2 Znldjuphcso19/18/2022,07/09/2020, 06/18/2020 Family History Medical HistoryRelationNameCommentsCOPDBrotherDiabetesBrotherDiabetesFatherHeart diseaseFatherHypothyroidismFatherHeart diseaseMotherRelationNameStatusComments BrotherFatherDeceasedMotherDeceased Social History Tobacco UseTypesPacks/DayYears UsedDateSmoking Tobacco: FormerCigarettesQuit: 01/30/2018Passive Smoke Exposure: PastSmokeless Tobacco: NeverAlcohol Use Standard Drinks/WeekCommentsYes0 (1 standard drink = 0.6 oz pure alcohol)CT Safety & EnvironmentAnswerDate RecordedFear of Current or Ex-PartnerNot on file 05/26/2023Emotionally AbusedNot on file05/26/2023hysically AbusedNot on file 05/26/2023Sexually AbusedNot on file05/26/2023hysically or Sexually AbusedNot on file05/26/2023Sex and Gender InformationValueDate RecordedSex Assigned at BirthNot on fileLegal WcaBwwh1309/30/2021 9:47 PM EDTGender IdentityNot on file Sexual OrientationNot on file Last Filed Vital Signs Vital SignReadingTime TakenCommentsBlood Qdexsuoz871/60005/30/2024 10:01 AM EST Nsugy832505/30/2024 10:01 AM ESTTemperature--Respiratory Nawf716705/30/2023 9:42 AM ESTOxygen Lvdnhlphqp02%05/30/2024 10:01 AM ESTInhaled Oxygen Concentration-- Rezvwt330 kg (250 lb)05/30/2024 10:01 AM JTUAfgons676.3 cm (5' 11 )05/30/2024 10:01 AM ESTBody Mass Index34.8705/30/2024 10:01 AM EST Plan of Treatment DateTypeDepartmentCare Team (Latest Contact Info)Hncuiyysmql43/26/[address]26 2[address] [facility] [address] [place] [phone] Tom Bustillos MD [address] [facility] [address] [facility] [place] [address] Health MaintenanceDue DateLast DoneCommentsCT Huqcxttdmwfp92/05/1962Colonoscopy 2Diabetes: Hemoglobin A1C1961FIT-DNA1961FOBT1961 Tkznonrxoqajl57/05/1962Diabetes: Retinopathy Mfbdkikqe86/05/1972Depression Uacubicdf29/05/1974Diabetes: Urine Protein Utoiwwszk55/05/1981Zoster Vaccines (1 of 2)09/07/2011dult Llgvroz15/07/2010Colorectal Cancer Screening 08/19/2021FIT/OVID-19 Vaccine ( season)2024 02/06/2022, [...] DateEnd Date Michael Plummer MD [address] [place] [address] PCP - General05/28/22 Tom Bustillos MD [address] [facility] [address] [facility] [place] [place] [address] Consulting PhysicianSle Medicine08/02/18 Jessica Wintre MD [address] [place] [address] CardiologistCardiology05/28/22
--- OUTSIDE RECORDS SUMMARY | 2025-03-25 12:19 | XMS_ITS | Clinical Summary ---
Author Organization [facility] Address [address] [place] [address] Care Team Providers Care Debug Technician Name Role Phone Donavon Morales MD Unavailable Michael Plummer MD Primary Care Provider [phone] Jessica Winter MD Unavailable [phone] Jessica Winter MD Unavailable [phone] Allergies Active AllergyReactionsCriticalityNoted DvxkXhphmverUlvihxphlvSjomyru81/16/2019 PrednisoneOther: See Cyzmhnlc66/04/2025 Insomnia, palpitations Medications MedicationSigDispense QuantityRefillsLast FilledStart DateEnd DateStatus cholecalciferol (VITAMIN D3) 50 mcg (2,000 unit) tablet Take 2,000 Units by mouth once daily.Active lisinopril (ZESTRIL, PRINIVIL) 20 mg tablet Take 20 mg by mouth twice daily.Active metFORMIN (GLUCOPHAGE) 500 mg tablet Take 500 mg by mouth two times a day with meals.Active OZEMPIC 1 mg/dose (4 mg/3 mL) pen one time a week.02/14/2023ctive apixaban (ELIQUIS) 5 mg tab(s) Indications:Persistent atrial fibrillation (HCC)Take 1 tablet by mouth two times a day. 180 tablet 5Active metoprolol succinate ER (TOPROL XL) 25 mg 24 hr tablet Take 1 tablet by mouth two times a day. 180 tablet 309/30/137536/30/2026Active meloxicam (MOBIC) 15 mg tablet Take 15 mg by mouth once daily.5Active atorvastatin (LIPITOR) 40 mg tablet Take 40 mg by mouth daily at bedtime.Active Active Problems Patient Care Coordination No te Formatting of this note migh t be different from the original. 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 ProblemNoted DateDiagnosed DateIRB MAP AF PI: Dr. Shannon Rodriguezin105/19/2020 Atrial dxzqjzdhcodj49/13/2019 Overview (08/17/2018): Baseline ECG: AF, QTc 440, iRBBB (QRSd 94) CrCl: 90 08/14/2018 - started Tikosyn 500 mcg 08/16/2018 - successful cardioversion to NSR Discharge on Tikosyn 500 mcg Q12 Sleep apnea08/14/2018 Overview (08/17/2018): Continue using cpap Left atrial rksqhobt44/01/2018 Overview (11/03/2018): per echo Encounters DateTypeDepartmentCare GyuqVwgsoksaulg24/21/2025 Get Medical Advice Cardiology [address] [place] [address] Jessica Winter MD Afib03/07/2025 10:00 AM ESTOffice Visit Cardiology [address] [place] [address] Jesscia Winter MD Persistent atrial fibrillation (HCC); terminologist (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; Obstructive sleep apnea (adult) (pediatric)03/07/2025 9:00 AM ESTProcedure Cardiology [address] [place] [address] 02/28/20253913Lqvatb41/29/2025Refill Cardiology [address] [place] [address] Jessica Winetr MD Refill Requestfrom Last 3 Months Immunizations ImmunizationAdministration DatesNext Duetetanus diphtheria pertussis (Tdap) vaccine, age 7+ yr (ADACEL, BOOSTRIX)07/06/2010 Family History Medical HistoryRelationCommentsDiabetesBrother 1Heart diseaseBrother 1 HypertensionBrother 2Coronary Artery DiseaseFathers/p CABGHeartMotherAF HypertensionMotheratrial fibrillationMotherHeartSisterMVPRelationStatusComments Brother 1AliveBrother 2AliveFatherDeceasedMotherDeceasedSisterAlive Social History Tobacco UseTypesPacks/DayYears UsedDateSmoking Tobacco: FiksgyAtxdbelqxj9Jajz: 2018Smokeless Tobacco: Never Tobacco Cessation:Counseling Given: Not Answered Alcohol UseStandard Drinks/WeekCommentsYes0 (1 standard drink = 0.6 oz pure alcohol)rarelyPHQ-2AnswerDate RecordedPHQ2 Vdujf107AUDIT-CAnswerDate RecordedQ1: How often do you have a drink containing alcohol?Monthly or less 03/07/2025Q2: How many drinks containing alcohol do you have on a typical day when you are drinking?1 or Q3: How often do you have six or more drinks on one occasion?Never03/07/2025rea Deprivation IndexAnswerDate Recorded National Score (1-100), lower number is lower xwdp827603/08/2023State Score (1- 10), lower number is lower bifp10205/09/2022ata from: https://www.neighborhoodatlas.[facility].edu/. Last address used for rifvmkzvflq[address]/09/2022Sex and Gender InformationValueDate RecordedSex Assigned at BlrrbFiev48/04/2022 6:28 PM ESTLegal IxkCakt4107/06/2018 11:58 AM EDTGender AoehvdksFbfy31/04/2022 6:28 PM ESTSexual OrientationStraight 04/07/2021 6:28 PM EST Last Filed Vital Signs Vital SignReadingTime TakenCommentsBlood Ojjhhqji819/7203/07/2025 9:57 AM EST Nfrbl456303/07/2025 9:57 AM IZULvxnbbidatk24.6 ??C (96.1 ??F)12/05/2024 8:43 AM EDTRespiratory Hjra208912/05/2024 11:43 AM EDTOxygen Qgzgcrlxem49%12/05/2024 11:43 AM EDTInhaled Oxygen Concentration--Cgtdiq693.1 kg (247 lb 3.2 oz)03/07/2025 9:57 AM WHYFfsozp873.1 cm (5' 10.5 )03/07/2025 9:57 AM ESTBody Mass Index34.97 03/07/2025 9:57 AM EST Plan of Treatment Health MaintenanceDue DateLast DoneCommentsAnxiety Rjleejhwc33/05/1980Depression Hvpmlywej65/05/1980HIV Whybxcugs14/05/1980Hepatitis C Qtwqtrtee06/05/1980Lipid Uxrqytsdg30/05/1997CT Fxpexstnelet30/05/4183Jkbmewhonww89/05/2007Fecal Occult Blood09/06/20063718Lvepmsqyccftv16/05/2007Pneumococcal Vaccine: 50+ (1 of 1 - PCV) 09/07/2011Shingrix Vaccine (1 of 2)09/07/2011DTaP,Tdap,Td Vaccine (2 - Td or Tdap)/07/2010Cologuard (FIT-DNA)olorectal Cancer Owmafefww11/18/2024Covid-19 Vaccine ( season)2024 02/06/2022, 07/20/2021, 07/09/2020, Additional history existsInfluenza Vaccine (#1)12/03/2024Diabetes Xfmmvbjhg79, 03/18/2021, 11/07/2020, Additional history existsProstate Cancer Screening Crawhcfbmk17/31/2030 09/01/2024, 2RSV Vaccine (1 - 1-dose 75+ series)2036 Goals GoalPatient Goal TypeAssociated ProblemsRecent ProgressPatient-Stated?Author Blood Pressure < 130/80 Blood Aqtyagoj745/72(03/07/2025 9:57 AM EST)NoHarris, Sue Procedures Procedure NamePriorityDate/TimeAssociated DiagnosisCommentsECG COMPLETERoutine 03/07/2025 8:50 AM EST Persistent atrial fibrillation (HCC) COMPREHENSIVE METABOLIC YMXOUWHTA06/03/2025 9:03 AM EDT from Last 3 Months or Most Recently Relevant to Health Maintenance Results * (ABNORMAL) COMPREHENSIVE METABOLIC PANEL (12/05/2024 9:03 AM EDT)Component ValueRef RangeTest MethodAnalysis TimePerformed AtPathologist Signature Protein, Total6.1(L)6.3 - 8.0 g/dL12/05/2024 9:30 AM [facility] LABAlbumin4.03.9 - 4.9 g/dL12/05/2024 9:30 AM [facility] LABCalcium, Total9.08.5 - 10.2 mg/dL12/05/2024 9:30 AM [facility] LABBilirubin, Total0.60.2 - 1.3 mg/dL12/05/2024 9:30 AM EDT [facility] LABAlkaline Zrpodvfcnnl7577 - 113 U/L12/05/2024 9:30 AM [facility] IHMLJG5388 - 40 U/L12/05/2024 9:30 AM [facility] BPNKAV6924 - 54 U/L12/05/2024 9:30 AM EDT [facility] HKPPztsbai883(H)74 - 99 mg/dL12/05/2024 9:30 AM [facility] LABComment: The [place] Diabetes Association (ADA) provides guidance for cutoff [...] Standards of Medical Care in Diabetes 2016, [place] [employer]. Diabetes Care. 2016.39(Suppl 1). LDV467 - 24 mg/dL12/05/2024 9:30 AM [facility] Creatinine1.000.73 - 1.22 mg/dL12/05/2024 9:30 AM [facility] FQOKlqimo247494 - 144 mmol/L12/05/2024 9:30 AM [facility] LABPotassium4.33.7 - 5.1 mmol/L12/05/2024 9:30 AM [facility] CGRUclqcmba29940 - 107 mmol/L12/05/2024 9:30 AM [facility] CGCYK34221 - 30 mmol/L12/05/2024 9:30 AM [facility] LABAnion Wcu318 - 15 mmol/L12/05/2024 9:30 AM [facility] LABEstimated Glomerular Filtration Rate85>=60 mL/min/1.73m 12/05/2024 9:30 AM [facility] LABComment:Estimated Glomerular Filtration Rate (eGFR) is calculated [...] VolumeCollection TimeReceived TimeBloodBLOOD SPECIMEN / UnknownVenipuncture / Ldxfyql2012/05/2024 9:03 AM EDT12/05/2024 9:08 AM EDT Narrative Authorizing ProviderResult TypeResult StatusOuspaolo Winter MDLABORATORYFinal ResultPerforming OrganizationAddressCity/State/ZIP CodePhone Number [facility] [address] [address], from Last 3 Months or Most Recently Relevant to Health Maintenance Insurance Care Teams Team MemberRelationshipSpecialtyStart DateEnd Date Michael Plummer MD [address] [place] [address] PCP - GeneralFamily Medicine07/18/18 Donavon Morales MD [address] [place] [address] ReferringCardiology07/06/18 Jessica Winter MD [address] [place] [address] Cardiology11/26/24 Jessica Winter MD [address] [facility] [place] [address] Primary Staff PhysicianCardiology12/05/24
--- OUTSIDE RECORDS SUMMARY | 2025-03-25 12:19 | XMS_ITS | Clinical Summary ---
Author Organization [facility] Address [address] [place] [address] Care Team Providers Care Reel Slitter Name Role Phone Michael Plummer MD Unavailable Michael Plummer MD Primary Care Provider [phone] Allergies Active AllergyReactionsCriticalityNoted DateCommentsPenicillinsOther,Unknown 07/18/2018 Medications MedicationSigDispense [...] hyperglycemia, without long-term current use of insulin ([facility])1 each Daily 50 each 5Active meloxicam (Mobic) 15 MG tablet Indications:Plantar fasciitis of right footTake 1 tablet (15 mg) by mouth Daily Take with food 30 tablet 5Active Blood Glucose Monitoring Suppl ([employer] Reflect) w/Device kit Indications:Type 2 diabetes mellitus with hyperglycemia, without long-term current use of insulin ([facility])EVERY DAY 1 kit 5Active Active Problems ProblemNoted [...] medication. Follow up with cardiology. Essential hypertension, lobuyp0908/10/2023 Assessment & Plan (08/07/2024 3:38 PM EDT): BP controlled and monitor PRN. Assessment & Plan (02/08/2024 11:30 AM EST): BP controlled and monitor PRN. Assessment & Plan (08/10/2023 1:53 PM EDT): BP controlled and monitor PRN. Generalized anxiety frmumgkf48/08/2024Gastroesophageal reflux disease without nsvjqbduypr98/08/2024 Assessment & Plan (02/08/2024 11:30 AM EST): [...] with hyperglycemia, without long-term current use of qeuiqcu7908/10/2023 Assessment & Plan (08/07/2024 3:39 PM EDT): [...] ADA diet and limit carbs. Vitamin D raqherhcxr69/08/2024Encounter for long-term (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 riqopflrkdg63/08/2024Screening PSA (prostate specific antigen)08/10/2023lass 1 obesity due to excess calories with serious comorbidity and body mass index (BMI) of 34.0 to 34.9 in adult08/10/2023 Immunizations ImmunizationAdministration DatesNext DuePfizer Cook Cap SARS-CoV-2 Vaccination 2Pfizer Purple Cap SARS-CoV-2 Lelymzdtujp98/07/2021,06/18/2020Tdap 07/06/2010 Family History Medical HistoryRelationNameCommentsCancerBrotherJeffLungDiabetesFatherPatrick Heart diseaseFatherPatrickHypertensionFatherPatrickHeart diseaseMotherJudith HypertensionMotherJudithCancerPaternal GrandfatherRobertColonRelationNameStatus CommentsBrotherJeffFatherPatrickMotherJudithPaternal GrandfatherRobert Social History Tobacco UseTypesPacks/DayYears UsedDateSmoking Tobacco: FormerCigarettes0.520 Smokeless Tobacco: Never Tobacco Cessation:Counseling Given: Not Answered Alcohol UseStandard Drinks/WeekCommentsNot Currently1 (1 standard drink = 0.6 oz pure alcohol)rareSocial Connection and Isolation PanelAnswerDate Recorded Frequency of Communication with Friends and FamilyNot on file08/03/2023How often do you get together with friends or relatives?Patient vvaszsul08/01/2024How often do you attend congregational or temple services?Patient nqclftig44/01/2024o you belong to any clubs or organizations such as congregational groups, unions, fraternal or athletic groups, or school groups?Patient xltulprg89/01/2024How often do you attend meetings of the clubs or organizations you belong to?Patient /01/2024re you , , , , never , or living with a partner?Patient oaxigenu33/01/2024UDIT-CAnswerDate RecordedQ1: How often do you have a drink containing alcohol?Patient /01/2024Q2: How many drinks containing alcohol do you have on a typical day when you are drinking?Patient ohuobgqu73/01/2024Q3: How often do you have six or more drinks on one occasion?Patient igpuowwr37/01/2024Overall Financial Resource Strain (CARDIA)AnswerDate RecordedHow hard is it for you to pay for the very basics like food, housing, medical care, and heating?Patient /01/2024[facility]. [facility] of Occupational Health - Occupational Stress QuestionnaireAnswerDate RecordedDo you feel stress - tense, restless, nervous, or anxious, or unable to sleep at night because yourmind is troubled all the time - these days?Patient eokukfbt56/01/2024Exercise Vital SignAnswerDate RecordedOn average, how many days per week do you engage in moderate to strenuous exercise (like a brisk wal k)?Patient nhecxnaw98/01/2024On average, how many minutes do you engage in exercise at this level?Patient ilfvvbjw25/01/2024Hunger Vital SignAnswerDate RecordedWithin the past 12 months, you worried that your food would run out before you got the money to buymore.Patient fevnsjhi08/01/2024Within the past 12 months, the food you bought just didn't last and you didn't have money to get more.Patient ihiuepsc30/01/2024RAPARE - TransportationAnswerDate RecordedIn the past 12 months, has lack of transportation kept you from medical appointments or from getting medications?Patient /01/2024In the past 12 months, has lack of transportation kept you from meetings, work, or from getting things needed for daily living?Patient vjqlenpy31/01/2024Housing Stability Vital Sign AnswerDate RecordedIn the last 12 months, was there a time when you were not able to pay the mortgage or rent on time?Patient dwekrpra85/01/2024Number of Places Lived in the Last YearNot on file08/03/2023In the last 12 months, was there a time when you did not have a steady place to sleep or slept in [place] (including now)?Patient botdhnwp81/01/2024Sex and Gender InformationValueDate RecordedSex Assigned at BirthNot on fileLegal QqsLsyp21/10/2023 8:26 AM EST Gender IdentityNot on fileSexual OrientationNot on file Last Filed Vital Signs Vital SignReadingTime TakenCommentsBlood Cfstojwi751/5805 3:00 PM EDT Sgehe65495 3:00 PM WQEHxqqxrrtpim10.4 ??C (97.5 ??F)08/07/2024 3:00 PM EDTRespiratory Zdsn260108/07/2024 3:00 PM EDTOxygen Ixvisdgodq68%08/07/2024 3:00 PM EDTInhaled Oxygen Concentration--Pbgwru333 kg (249 lb)08/07/2024 3:00 PM EDT Gzhlsa505.3 cm (5' 11 )08/07/2024 3:00 PM EDTBody Mass Index34.7308/07/2024 3:00 PM EDT Plan of Treatment Health MaintenanceDue DateLast DoneCommentsCT Ypejnamfwjlq10/05/1962FIT 1961FOBT1961 6823Cgvegwybyetfj70/05/1962Diabetes: Retinopathy Screening 09/07/1971Pneumococcal Vaccine: Pediatrics (0 to 5 Years) and At-Risk Patients (6 to 64 Years) (1 of 2 - PCV)1980FIT-DNA/1Diabetes: Hemoglobin A1C511/02/2024, 4Diabetes: Urine Protein Screening /4COVID-19 Vaccine (2024- season)/08/2021, 07/20/2021, 07/09/2020, Additional history existsInfluenza Vaccine (#1) 9053Jxlxeqndomb33/19/203307/3Colorectal Cancer Aibespdet52/19/2033 Insurance Care Teams Team MemberRelationshipSpecialtyStart DateEnd Date Michael Plummer MD [address] [place] [phone] [facility] Michael Plummer MD [address] [place] [phone] PCP - [facility]08/10/23
[2025-03-25] MEDS: FUROSEMIDE 40 MG/4 ML VIAL IVP (12:46)
--- NOTE | 2025-03-25 13:25 | ECG_ITS ---
The [facility] Test Date: 2025-03-25 Pat Name: ABBEY ROBERT Department: Room: - Gender: Male Rolls Baker: : 1960 Requested By: 1030 Order Number: [id number] Reading MD: CARL RUIZ M.D. Measurements Intervals [place] Rate: 79 P: -78417 AK: -73160 QRS: 58 QRSD: 86 T: 69 QT: 344 QTc: 378 Interpretive Statements 1210 Atrial fibrillation abnormal ECG Compared to ECG 03/25/2025 11:26:32 ST (T wave) deviation no longer present Heart rate has decreased by 63 BPM Electronically Signed On 03-25-2025 19:28:33 EST by CARL RUIZ M.D.
--- NOTE | 2025-03-25 14:36 | CA_ITS ---
Patient Name: ABBEY ROBERT MR#: [id number] : 1960 Exam Date: 03/25/2025 Ordering Doctor: ESTEFANI TEMPLETON ECHOCARDIOGRAM REPORT PROCEDURE: CA ECHO DOPPLER COMPLETE INDICATIONS: CHF, Afib COMPARISON: None. DESCRIPTION: COMPLETE ECHOCARDIOGRAM Real-time transthoracic echocardiography with 2D, M-mode, spectral and color flow Doppler performed. QUALITY: Technical quality was good. LEFT VENTRICLE: Normal chamber size. Moderate concentric left ventricular hypertrophy. Global left ventricular systolic function is normal. Visual estimation of left ventricular ejection fraction is 60-65%. LV EF: Normal left ventricular ejection fraction, (>55%). DIASTOLIC: Not adequately assessed due to heart rhythm. ATRIAL SEPTUM: LEFT ATRIUM: Severe dilatation. RIGHT ATRIUM: Moderate dilatation. RIGHT VENTRICLE: Normal chamber size. Normal right ventricular systolic function. TRICUSPID VALVE: Normal mobility and thickness. No stenosis with mild regurgitation. No evidence of pulmonary hypertension. RVSP 27 mmHg. MITRAL VALVE: Posterior leaflet prolapse. No evidence of mitral valve stenosis. There is no mitral annular calcification. Mild to moderate mitral regurgitation. AORTIC VALVE: Normal trileaflet appearance. No visible sclerosis. Normal leaflet mobility. No evidence of aortic valve stenosis. No aortic regurgitation. AORTIC ROOT: Normal diameter and appearance. The aortic root is normal in size and measures 3.7 cm. The ascending aorta is normal in size and measures 3.0 cm. PULMONIC VALVE: Normal thickness and mobility. No stenosis. Trivial regurgitation. PERICARDIUM: Trivial pericardial effusion. No evidence of tamponade. IVC: Collapses with inspiration. The IVC measures 1.9 cm. PLEURA: CONCLUSION: 1. Moderate concentric left ventricular hypertrophy with normal systolic function. Estimated LVEF is 60 to 65%. 2. Normal right ventricular size and systolic function. 3. Moderate to severe biatrial dilatation. 4. Posterior leaflet mitral valve prolapse with mild to moderate regurgitation. 5. Mild tricuspid regurgitation. 6. Normal right-sided pressures. 7. Trivial pericardial effusion. Adult Echocardiography Procedure Report Left Ventricle LVEDD (3.7 - 5.6 cm): 4.60 cm LVESD (2.2 - 4.0 cm): 3.31 cm LVIVS thickness (0.6 - 1.2 cm): 1.47 cm LVPW thickness (0.5 - 1.0 cm): 1.55 cm e': 0.13 m/s E - e': 7.83 LVOT Max Gradient: 2.39 mm[Hg] LVOT Area (cm2): 0.77 m/s Peak Velocity (LVOT): 0.77 m/s Mean Velocity (LVOT): 0.48 m/s LVOT Diameter 2.20 cm Left Ventricular Ejection Fraction: 60-65 % Left Atrium LA Volume Index (2D A2C): 67.27 ml/m2 Left Atrium Systolic Dimension: 4.96 cm Mitral Valve Mitral Valve E-Wave Peak Velocity: 1.05 m/s Right Ventricle RV Internal Diastolic Dimension: 3.66 cm Aorta AO Root Diam: 3.68 cm Ascending Ao Diam: 3.03 cm Aortic Valve AoV Area (Peak Duglas): 2.68 cm2, 2.61 cm2 AoV Area (VTI): 2.77 cm2, 2.71 cm2 Peak Velocity(Antegrade Flow): 1.13 m/s, 1.07 m/s Peak Gradient(Antegrade Flow): 5.08 mm[Hg], 4.59 mm[Hg] Mean Velocity(Antegrade Flow): 0.71 m/s, 0.67 m/s Mean Gradient(Antegrade Flow): 2.37 mm[Hg], 2.16 mm[Hg] Velocity Time Integral: 14.53 cm, 13.85 cm Tricuspid Valve Peak Velocity (Regurgitant Flow): 1.74 m/s, 2.02 m/s, 2.44 m/s Pulmonic Valve Mean Gradient: 0.61 mm[Hg], 1.60 mm[Hg] Mean Velocity: 0.36 m/s, 0.61 m/s Peak Velocity: 0.69 m/s Peak Gradient: 1.41 mm[Hg], 2.43 mm[Hg] Right Atrium Right Atrium Systolic Pressure: 78.10 ml, 78.10 ml Dictated by: Imtiaz Haq M.D. on 03/26/2025 at 08:33 Approved by: Imtiaz Haq M.D. on 03/26/2025 at 08:37
[2025-03-25 15:01] LABS: Thyroid Stimulating Hormone 1.948 uIU/mL (0.358-3.740)
[2025-03-25 15:02] LABS: NT Pro B Type Natriuretic Pept 2037.0 pg/mL (<=900.0)
[2025-03-25] MEDS: MAGNESIUM SULFATE IN WATER 2 GM/50 ML PREMIX IV (15:13)
--- NOTE | 2025-03-25 18:16 | PC.NURSE ---
cardizem drip titrated up per protocol to 15mg. Patient still tachy in the 120's-130's. Dr. Mcdaniels notified. Awaiting reply back
--- NOTE | 2025-03-25 18:30 | PC.NURSE ---
Dr. Mcdaniels aware of increased heart rate and current rate of cardizem
[2025-03-25] MEDS: METOPROLOL TARTRATE 25 MG TABLET PO (18:42)
[2025-03-25] MEDS: METOPROLOL TARTRATE 5 MG/5 ML VIAL IVP (18:42)
[2025-03-25] MEDS: ATORVASTATIN CALCIUM 40 MG TABLET PO (21:01)
[2025-03-25] MEDS: APIXABAN 5 MG TABLET PO (21:01)
[2025-03-25] MEDS: METFORMIN HCL 500 MG TAB.ER.24H PO (21:01)
[2025-03-26] VITALS (56 sets, daily range): BP systolic 95–142; BP diastolic 61–94; PULSE 67–132; TEMP 36.7; O2SAT 95–96
[2025-03-26] MEDS: TEMAZEPAM 15 MG CAPSULE PO ×2 (00:02→21:51)
[2025-03-26 05:42] LABS: Anion Gap 11.5; Blood Urea Nitrogen 27.0 mg/dL (7.0-18.0); Calcium 8.4 mg/dL (8.5-10.1); Carbon Dioxide 28.3 mmol/L (21.0-32.0); Chloride 105 mmol/L (98-107); Estimated GFR (African America >60 (>=60 mL/min/1.73m^2); Estimated GFR (Non-African Ame >60 (>=60 mL/min/1.73m^2); Glucose 181 mg/dL (74-106); Potassium 3.8 mmol/L (3.5-5.1); Sodium 141 mmol/L (136-145)
[2025-03-26 05:57] LABS: Magnesium 1.9 mg/dL (1.8-2.4)
[2025-03-26] MEDS: METOPROLOL TARTRATE 5 MG/5 ML VIAL IVP ×2 (07:53→11:47)
--- NOTE | 2025-03-26 08:10 | CM.NOTE ---
Rounds made with Dr. Mcdaniels, discussed diagnosis and plan of care with pt. Cardiology will see pt today for further recommendations. RN will give one time dose of IV Lopressor 5mg and change P.O to Lopressor 50mg P.O BID.
[2025-03-26] MEDS: APIXABAN 5 MG TABLET PO ×2 (08:22→21:50)
[2025-03-26] MEDS: METFORMIN HCL 500 MG TAB.ER.24H PO (08:22)
[2025-03-26] MEDS: METOPROLOL TARTRATE 50 MG TABLET PO ×2 (08:22→21:50)
--- NOTE | 2025-03-26 09:43 | PM.HP ---
HPI H&P: HPI History of Present Illness Chief complaint: A FIB SYMPTOMS SOB ATRIAL FIBRILLATION WITH RVR CH Narrative: Mr. Lowe is a 64-year-old gentleman who came in with a palpitation. He was found to have atrial fibrillation. Rapid ventricular response. He is known to have atrial fibrillation on for the last several years. He has had multiple cardioversion. He had ablation about 2 years ago. He is on Eliquis and metoprolol 25 mg twice daily. He tried Tikosyn before for short period of time but did not keep him in rhythm according to him. Minimal shortness of breath. No fever or chills. No chest pain. Opioid HPI Opioid Management Most Recent Pain and Opioid Data: Last Pain Assessment Today, 09:00 Last ORT Total Score 0 03/25/25, 14:12 Last ORT Risk Category Low Risk 03/25/25, 14:12 PFSH PFS Medical History (Updated 03/25/25 @ 13:02 by Cesar Szymanski MD) History of cardioversion ?Z92.89 - Personal history of other medical treatment (ICD-10) Hx of sigmoidoscopy ?Z98.890 - Other specified postprocedural states (ICD-10) Tubular adenoma of colon ?D12.6 - Benign neoplasm of colon, unspecified (ICD-10) Sleep apnea ?G47.30 - Sleep apnea, unspecified (ICD-10) History of colonic polyps ?Z86.010 - Personal history of colonic polyps (ICD-10) Morbid obesity ?E66.01 - Morbid (severe) obesity due to excess calories (ICD-10) Hypertension ?I10 - Essential (primary) hypertension (ICD-10) Chronic anticoagulation ?Z79.01 - manager intermediate (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 (ICD-10) Atrial fibrillation ?I48.91 - Unspecified atrial fibrillation (ICD-10) Surgical History (Updated 10/13/22 @ 13:49 by Keila Dougherty) Hx of tonsillectomy ?Z90.89 - Acquired absence of other organs (ICD-10) History of cardiac radiofrequency ablation ?Z98.890 - Other specified postprocedural states (ICD-10) H/O colonoscopy ?Z98.890 - Other specified postprocedural states (ICD-10) Family History (Updated 10/13/22 @ 13:39 by Keila Dougherty) Other Family history of CHF (congestive heart failure) Family history of COPD (chronic obstructive pulmonary disease) Family history of cancer Family history of diabetes mellitus Family history of hypertension Family history of myocardial infarction Social History (Updated 10/13/22 @ 13:49 by Keila Dougherty) Within the past year, how often did you have a drink containing alcohol: monthly or less Smoking status: Former smoker Non-prescribed substance use: denies use Highest level of school completed/degree received: high school graduate Little interest or pleasure in doing things: not at all Feeling down, depressed, or hopeless: not at all Meds Home Medications and Allergies Home Medications ?Medication ?Instructions ?Recorded ?Confirmed ?Type apixaban 5 mg tablet (Eliquis) 5 mg PO BID 10/12/22 03/25/25 History cholecalciferol (vitamin D3) 50 2,000 unit PO DAILY 10/12/22 03/25/25 History mcg (2,000 unit) capsule (Vitamin D3) lisinopril 20 mg tablet 20 mg PO BID 10/12/22 03/25/25 History metformin 500 mg tablet,extended 500 mg PO BID 10/12/22 03/25/25 History release 24 hr metoprolol succinate 25 mg 25 mg PO BID 10/12/22 03/25/25 History tablet,extended release 24 hr atorvastatin 40 mg tablet 40 mg PO .qhs 10/27/24 03/25/25 History meloxicam 15 mg tablet 15 mg PO DAILY 10/27/24 03/25/25 History semaglutide 1 mg/dose (4 mg/3 mL) 1 mg subcut .qweekly 10/27/24 03/25/25 History subcutaneous pen injector (Ozempic) Allergies Allergy/AdvReac Type Severity Reaction Status Date / Time Penicillins Allergy Unknown unknown Verified 03/25/25 11:25 Exam Narrative Exam Narrative: [pt is awake and alert. oriented to place, time and person HEENT: [place] conjunctiva and NL buccal mucosa Neck: Supple, no tenderness Endocrine: No Thyromegaly. Vascular: No JVD or carotid bruit. Lymphatic: No cervical lymphadenopathy. Chest: Fine crackles Heart irregular rate and rhythm Abd: Soft, no tenderness, no rebound and no rigidity. Increase abd girth therefore clinically I could not exclude the possibility of intra abd mass or organomegaly. LE: No cyanosis or clubbing, no varices or edema. Neuro: A A O. Nl speech, comprehension and attention. Nl and symetrical motor and tone examination through out. []] Constitutional Vital Signs, click to edit/add: Last Vital Signs Temp 97.6 F 03/25/25 23:58 Pulse 104 H 03/26/25 08:00 Resp 18 03/26/25 04:00 BP 132/88 03/26/25 04:00 Pulse Ox 95 03/26/25 06:00 O2 Del Method Room Air 03/26/25 04:00 Results Labs Labs: Short CBC 03/25/25 Range/Units 11:34 WBC 9.7 (4.0-11.0) 10^3/uL Hgb 15.7 (14.0-18.0) g/dL Hct 46.7 (42.0-54.0) % Plt Count 168 (150-450) 10^3/uL BMP 03/25/25 03/26/25 11:34 05:00 Sodium 141 141 Potassium 4.2 3.8 Chloride 104 105 Carbon Dioxide 28.2 28.3 BUN 27.0 H 27.0 H Creatinine 1.21 0.95 Glucose 239 H 181 H Calcium 8.7 8.4 L Assessment and Plan Assessment and Plan (1) Atrial fibrillation with RVR: (2) Congestive heart failure: Plan Acute atrial fibrillation with rapid ventricular response Acute diastolic heart failure. As stated above, patient has had A-fib on for the last several years. He has had multiple cardioversion. He had ablation before. He was tried on Tikosyn before but then got discontinued due to lack of effect according to patient. I had accepted to admit patient to the medical and telemetry unit. I started him on Cardizem drip. Patient had received few doses of intravenous Lopressor This morning his heart rate is 120. I increased his home metoprolol up to 50 mg twice daily. Continue Eliquis for embolic stroke prevention. Echocardiogram is negative for systolic dysfunction but positive for mitral regurgitation which could have triggered his interstitial pulmonary edema Troponin is negative TSH is 1.9. Patient does have sleep apnea which could trigger recurrent A-fib. Patient is compliant with his CPAP machine. Patient had ischemic evaluation. Cardiac catheter several years ago which she reported to be negative according to the patient and his . Requested cardiac consultation. The patient may qualify for amiodarone. Defer further needed diagnostic and therapeutic invention relative to his cardiovascular issues and the timing of these intervention to be addressed by cardiology team Obstructive sleep apnea Patient is compliant with his CPAP machine. Anxiety, restlessness Try small dose of benzo. Diabetes. Patient is on Ozempic and metformin A1c is 8.2. Increase metformin to 1000 twice daily. May need to add another agent Obesity Diet, exercise and lifestyle modification Hypertension hyperlipidemia Hold the lisinopril at this time to allow for additional blocking agent to control his heart rate. Continue statin. I discussed this case with his at the bedside.
[2025-03-26] MEDS: ALPRAZOLAM 0.5 MG TABLET PO ×2 (10:22→21:50)
[2025-03-26] MEDS: FLU VACC TS2025-26(6MOS UP)/PF FLULAVAL 45 MCG/0.5 ML SYRINGE IM (11:43)
[2025-03-26] MEDS: PNEUMOC 20-VAL CONJ-DIP CRM/PF 0.5 ML SYRINGE IM (11:45)
[2025-03-26] MEDS: DILTIAZEM HCL 25 MG/5 ML VIAL 10 MG IV (13:12)
[2025-03-26] MEDS: AMIODARONE IN DEXTROSE,ISO-OSM 360 MG/200 ML PLAST..BAG 33.333 MG IV ×2 (17:26→23:19)
--- NOTE | 2025-03-26 17:36 | P.CACN_ITS ---
<Statement entered by CARL RUIZ - 03/29/25 19:58> This documentation has been reviewed and approved. History of Present Illness History of Present Illness Consult date: 03/26/25 Requesting physician: Poly Mcdaniels Consult reason: atrial fibrillation Chief complaint: A FIB SYMPTOMS SOB ATRIAL FIBRILLATION WITH RVR CH Narrative: Patient is a 64 y/o M with known hx of a.fib with 2 prior a.fib ablations and m ultiple cardioversions. Additional known hx of HTN, REAL, pre-diabetic, HANNAH thrombus in 2018. 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 He was given IV lopressor along with started on a cardizem gtt. At bedside at rest, HR controlled in the 80-90s. RN reports HR is in the 140s with activity. Pt states he is feeling better since his admission. Denies c/o chest pain, dypsnea, orthopnea, PND, dizziness/LH, palpitations, LE edema. Review of Systems ROS Status of ROS 10 or more systems reviewed and unremark able except as noted in history and below Cardiovascular Reports: palpitations [facility] Medical History (Updated 03/25/25 @ 13:02 by Cesar Szymanski MD) History of cardioversion ?Z92.89 - Personal history of other medical treatment (ICD-10) Hx of sigmoidoscopy ?Z98.890 - Other specified postprocedural states (ICD-10) Tubular adenoma of colon ?D12.6 - Benign neoplasm of colon, unspecified (ICD-10) Sleep apnea ?G47.30 - Sleep apnea, unspecified (ICD-10) History of colonic polyps ?Z86.010 - Personal history of colonic polyps (ICD-10) Morbid obesity ?E66.01 - Morbid (severe) obesity due to excess calories (ICD-10) Hypertension ?I10 - Essential (primary) hypertension (ICD-10) Chronic anticoagulation ?Z79.01 - 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 (ICD-10) Atrial fibrillation ?I48.91 - Unspecified atrial fibrillation (ICD-10) Surgical History (Updated 10/13/22 @ 13:49 by Keila Dougherty) Hx of tonsillectomy ?Z90.89 - Acquired absence of other organs (ICD-10) History of cardiac radiofrequency ablation ?Z98.890 - Other specified postprocedural states (ICD-10) H/O colonoscopy ?Z98.890 - Other specified postprocedural states (ICD-10) Family History (Updated 10/13/22 @ 13:39 by Keila Dougherty) Other Family history of CHF (congestive heart failure) Family history of COPD (chronic obstructive pulmonary disease) Family history of cancer Family history of diabetes mellitus Family history of hypertension Family history of myocardial infarction Social History (Updated 10/13/22 @ 13:49 by Keila Dougherty) Within the past year, how often did you have a drink containing alcohol: monthly or less Smoking status: Former smoker Non-prescribed substance use: denies use Highest level of school completed/degree received: high school graduate Little interest or pleasure in doing things: not at all Feeling down, depressed, or hopeless: not at all Meds Home Medications and Allergies Home Medications ?Medication ?Instructions ?Recorded ?Confirmed ?Type apixaban 5 mg tablet (Eliquis) 5 mg PO BID 10/12/22 History cholecalciferol (vitamin D3) 50 2,000 unit PO DAILY 03/25/25 History mcg (2,000 unit) capsule (Vitamin D3) lisinopril 20 mg tablet 20 mg PO BID 10/12/22 History metformin 500 mg tablet,extended 500 mg PO BID 3 03/25/25 History release 24 hr metoprolol succinate 25 mg 25 mg PO BID 10/12/2203/25 History tablet,extended release 24 hr atorvastatin 40 mg tablet 40 mg PO .qhs 10/27/2403/25 History meloxicam 15 mg tablet 15 mg PO DAILY 10/27/2403/05 History semaglutide 1 mg/dose (4 mg/3 mL) 1 mg subcut .qweekly 10/27/24 03/25/25 History subcutaneous pen injector (Ozempic) Allergies Allergy/AdvReac Type Severity Reaction Status Date / Time Penicillins Allergy Unknown unknown Verified 03/25/25 11:25 Exam Constitutional Vital Signs, click to edit/add: Last Vital Signs Temp 97.6 F 03/25/25 23:58 Pulse 94 H 03/26/25 16:00 Resp 22 H 03/26/25 16:00 BP 108/72 03/26/25 15:18 Pulse Ox 96 03/26/25 16:00 O2 Del Method Room Air 03/26/25 04:00 Common normals: no apparent distress and oriented x3 HENMT Common normals: normocephalic and head/scalp atraumatic Eye Common normals: PERRL and EOMs intact bilaterally Chest Common normals: inspection of chest normal Respiratory Common normals: normal respiratory effort, no use of accessory muscles and clear to auscultation bilaterally Cardio Common normals: S1 normal heart sound and S2 normal heart sound Rhythm: abnormal rhythm irregularly irregular GI Common normals: Normal to inspection, nondistended, normoactive bowel sounds present Extremity Common normals: normal to inspection and no clubbing, cyanosis or edema Neuro Common normals: oriented x3 and CN's II-XII intact bilaterally Psych Common normals: mental status grossly normal and cooperative Results Labs and Meds Lab results: Comprehensive Metabolic Panel 03/26/25 Range/Units 05:00 Sodium 141 (136-145) mmol/L Potassium 3.8 (3.5-5.1) mmol/L Chloride 105 (98-107) mmol/L Carbon Dioxide 28.3 (21.0-32.0) mmol/L BUN 27.0 H (7.0-18.0) mg/dL Creatinine 0.95 (0.70-1.30) mg/dL Glucose 181 H (74-106) mg/dL Calcium 8.4 L (8.5-10.1) mg/dL Intake and Output 03/26/25 03/26/25 03/26/25 07:59 15:59 23:59 Intake Total 30.25 / 725.000 43.333 / 43.333 Output Total 300 / 2325 Balance -269.75 / -1600.000 43.333 / 43.333 Intake: IV 30.25 / 175.000 43.333 / 43.333 dilTIAZem HCL 125 mg In 0.9 % 30.25 / 125.000 43.333 / 43.333 Sodium Chloride 100 ml @ 10 MG/ HR 10 mls/hr IV TITR VIVIANE Rx#: [id number] Output: Urine 300 / 2325 Assessment and Plan Assessment and Plan (1) Atrial fibrillation with RVR: (2) Congestive heart failure: Plan #A.fib with RVR -HR currently controlled at rest. 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 -He is currently on a Diltazem gtt. EF today was preserved but noted to have severely enlarged left atrium which may make it hard for rhythm control. -Recommend switching diltiazem to amiodarone gtt, 1mg/min and have this run overnight. Switch the drip to oral loading tomorrow and continue PO amio 400mg BID x12 days then 200mg daily. -Pt to follow-up with his primary reel fed printer and can further plan for tikosyn vs sotalol loading as an outpatient. Pt is agreeable with this plan. -Continue Eliquis 5mg BID and Topro 50mg BID. #HFpEF -NTproBNP elevated on admission at 2036. He received some IV diuresis. -Currently compensated on exam. A.fib likely contributing factor. -Recommend discharging pt with PRN lasix for weight gain of 2-3lbs in a day or 5lbs in a week. Consider addition of Farxiga at discharge. -Limit sodium intake, fluids to 2L/day. #HTN -Controlled -Continue lisinopril and Toprol Plan collaborated with Dr. Connell, cardiology attending. Please call if any further questions or concerns. Thank you. Ashly York APRN-[facility] Cardiovascular Medicine
[2025-03-26] MEDS: METFORMIN HCL 500 MG TAB.ER.24H 1000 MG PO (21:49)
[2025-03-26] MEDS: ATORVASTATIN CALCIUM 40 MG TABLET PO (21:50)
[2025-03-27] VITALS (36 sets, daily range): BP systolic 107–151; BP diastolic 72–99; PULSE 85–116; TEMP 36.3–37.1; O2SAT 91–97
[2025-03-27] MEDS: AMIODARONE IN DEXTROSE,ISO-OSM 360 MG/200 ML PLAST..BAG 33.333 MG IV (05:07)
[2025-03-27 06:37] LABS: Anion Gap 13.7; Blood Urea Nitrogen 28.0 mg/dL (7.0-18.0); Calcium 8.5 mg/dL (8.5-10.1); Carbon Dioxide 26.0 mmol/L (21.0-32.0); Chloride 104 mmol/L (98-107); Estimated GFR (African America >60 (>=60 mL/min/1.73m^2); Estimated GFR (Non-African Ame >60 (>=60 mL/min/1.73m^2); Glucose 187 mg/dL (74-106); NT Pro B Type Natriuretic Pept 1006.0 pg/mL (<=900.0); Potassium 3.7 mmol/L (3.5-5.1); Sodium 140 mmol/L (136-145)
--- NOTE | 2025-03-27 08:20 | CM.NOTE ---
Rounds made with Dr. Mcdaniels, pt will discharge to home after IV amiodarone completed. Pt will go home on P.O amiodarone and f/u with PCP and cardiology.
[2025-03-27] MEDS: APIXABAN 5 MG TABLET PO (08:26)
[2025-03-27] MEDS: AMIODARONE HCL 200 MG TABLET 400 MG PO (08:26)
[2025-03-27] MEDS: METOPROLOL TARTRATE 50 MG TABLET PO (08:26)
[2025-03-27] MEDS: METFORMIN HCL 500 MG TAB.ER.24H 1000 MG PO (08:26)
[2025-03-27] MEDS: ALPRAZOLAM 0.5 MG TABLET PO (08:26)
--- NOTE | 2025-03-27 09:42 | PM.DS1 ---
DS: Providers Provider Date of admission: 03/25/25 14:02 Primary care physician: Michael Plummer MD Consults: 03/26/25 Consult to Cardiology Routine Reason for consultation: A-fib DS: Diagnosis Discharge Diagnosis (1) Atrial fibrillation with RVR: (2) Congestive heart failure: Plan As listed above, below and others that are not listed DS: Summary Hospital Course Hospital Course: Mr. Lowe is a 64-year-old gentleman with the known history of A-fib for the last several years. Previous history of ablation and multiple cardioversions. He came in with palpitation. He was found to have the following: Acute atrial fibrillation with rapid ventricular response Acute diastolic heart failure. Previous echo showed preserved ejection fraction. His BNP is trending down after his heart rate is under better control As stated above, patient has had A-fib on for the last several years. He has had multiple cardioversion. He had ablation before. He was tried on Tikosyn before but then got discontinued due to lack of effect according to patient. I had accepted to admit patient to the medical and telemetry unit. I started him on Cardizem drip. Patient had received few doses of intravenous Lopressor I increased his home metoprolol up to 50 mg twice daily. Continue Eliquis for embolic stroke prevention. Echocardiogram is negative for systolic dysfunction but positive for mitral regurgitation which could have triggered his interstitial pulmonary edema Troponin is negative TSH is 1.9. Patient does have sleep apnea which could trigger recurrent A-fib. Patient is compliant with his CPAP machine. Patient had ischemic evaluation. Cardiac catheter several years ago which she reported to be negative according to the patient and his . Patient was seen by cardiology team who recommended amiodarone loading dose intravenously followed by oral amiodarone 400 mg twice a day for 5 days then 20o mg daily. 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 Winter. Hypertension Due to the initiation of amiodarone and increasing his Lopressor To 50 mg twice daily, his blood pressure is on the soft side. Patient is asymptomatic. Therefore at this time I would recommend to discontinue his lisinopril 20 mg twice daily and instead put him on losartan 25 mg daily. That is to reduce his risk having hypotension Obstructive sleep apnea Patient is compliant with his CPAP machine. Anxiety, restlessness Try small dose of benzo. Diabetes. Patient is on Ozempic and metformin A1c is 8.2. Increase metformin to 1000 twice daily. Added Amaryl 1 mg daily. Patient will be instructed to do the following: Check your blood sugar 3 times a day before meals. Document these numbers on a blood glucose log and bring them with you to your follow-up appointment with your primary care doctor. Communicate with your primary care doctor or building specialist if your blood sugar is under 100 or above 300 on 2 consecutive checks. Communicate with your primary care doctor or building specialist if you have any questions about your diabetes medications. Signs of a low blood sugar include sweating, racing heart, dizziness and/or weakness. Check your blood sugar if you have any of the symptoms. Obesity Diet, exercise and lifestyle modification Time Spent with Patient Time attestation: Total time spent providing and/or coordinating discharge services: Exam Constitutional Vital Signs, click to edit/add: Last Vital Signs Temp 97.3 F L 03/27/25 07:00 Pulse 100 H 03/27/25 08:00 Resp 17 03/27/25 07:00 BP 111/84 03/27/25 07:00 Pulse Ox 97 03/27/25 07:00 O2 Del Method Room Air 03/27/25 08:00 DS: Data Data Completed and Pending Labs on day of discharge: Labs from last 24 hours 03/27/25 03/26/25 05:16 21:33 Sodium 140 Potassium 3.7 Chloride 104 Carbon Dioxide 26.0 Anion Gap 13.7 BUN 28.0 H Creatinine 1.16 Est GFR ( Amer) >60 Est GFR (Non-Af Amer) >60 BUN/Creatinine Ratio 24.1 Glucose 187 H Calcium 8.5 NT-Pro-B Natriuret Pep 1006.0 H POC Glucose 222 H Discharge Plan Discharge Disposition: Home, Self-Care Condition: Fair Discharge Medications: New metoprolol tartrate 50 mg Tablet 50 mg PO BID Qty: 60 2RF amiodarone 200 mg tablet 200 mg PO .as directed 7 Days Qty: 60 2RF Rx Instructions: Take 2 tablets ( 2 X 200 mg = 400 mg ) in the morning and 2 tablets ( 2 X 200 mg = 400 mg ) in the evening for 5 days After 5 days take 1 tablet daily metformin 1,000 mg tablet 1,000 mg PO BID Qty: 60 2RF losartan 25 mg tablet 25 mg PO DAILY Qty: 30 2RF glimepiride 1 mg tablet 1 mg PO DAILY Qty: 30 2RF Continued Eliquis 5 mg tablet 5 mg PO BID cholecalciferol (vitamin D3) [Vitamin D3] 50 mcg (2,000 unit) capsule 2,000 unit PO DAILY atorvastatin 40 mg tablet 40 mg PO .qhs Ozempic 1 mg/dose (4 mg/3 mL) pen injector 1 mg SUBCUT .qweekly Patient Comments: SUNDAYS Changed meloxicam 15 mg tablet 15 mg PO DAILY PRN (Reason: Pain) Qty: 0 0RF Discontinued lisinopril 20 mg tablet 20 mg PO BID metformin 500 mg tablet extended release 24 hr 500 mg PO BID metoprolol succinate 25 mg tablet extended release 24 hr 25 mg PO BID Print Language: [place] Activity Restrictions/Additional Instructions: I may not have addressed or treated all of your medical illnesses or the abnormal blood work or imaging studies during this hospitalization. Please ask your primary care provider to obtain [place] records entirely to follow up on all of the abnormal physical, laboratory, and imaging findings that I have not addressed. Check your blood sugar 3 times a day before meals. Document these numbers on a blood glucose log and bring them with you to your follow-up appointment with your primary care doctor. Communicate with your primary care doctor or building specialist if your blood sugar is under 100 or above 300 on 2 consecutive checks. Communicate with your primary care doctor or building specialist if you have any questions about your diabetes medications. Signs of a low blood sugar include sweating, racing heart, dizziness and/or weakness. Check your blood sugar if you have any of the symptoms. Please return back to the emergency room or seek medical attention if your symptoms worsen or return. Discharging you from [place] does not mean that your medical care ends here and now. You may still need additional monitoring, work up, investigation, and treatment plan to be handled from this point on by out patient providers including your primary care provider and specialists. For any medication question, please contact your retail pharmacist or your primary care provider. Thank you. Forms: Portal Instructions Follow Up Appointments: Dr. Plummer - [place]. 04/08/25 @ 11:45am [phone] Dr. Winter (cardiology) - [place]. 04/09/24 @ 9am [id number] [phone]
[2025-03-27] MEDS: POTASSIUM CHLORIDE 10 MEQ ER TABLET 20 MEQ PO (10:04)
--- NOTE | 2025-03-27 13:22 | PC.NURSE ---
discharge instructions given to pt and spouse. both verbalize understanding. belongings packed per pt, ambulated to exit with steady gait. discharged to private vehicle.
--- NOTE | 2025-03-29 11:30 | CM.DCFOLLOWU ---
Person spoke with:Nadeem How are you feeling? Better How is your pain? No pain Did you understand your discharge instructions? Yes Do you have any questions about your discharge instructions? No Were you given any prescriptions at discharge? Yes Were you able to get your prescriptions filled? Yes Do you understand how to take your medications as ordered? Yes Do you have any questions about your follow up appointment and do you plan to keep your follow up appointment? No questions. He plans on keeping his follow up appts. Is there anything else that you would like to discuss? No Questions/Comments/Concerns/Other:
== END 2025-03-27 13:18 | disposition home or self-care (01) | DRG 308 ==
LOC: ER 13:02 → MS 14:05
PROVIDERS: Admitting Provider Internal Medicine; Emergency Provider Emergency Medicine; PCP Family Medicine; Visit Provider Internal Medicine
DX: I48.91 Unspecified atrial fibrillation (principal); I50.31 Acute diastolic (congestive) heart failure; I11.0 Hypertensive heart disease with heart failure; G47.33 Obstructive sleep apnea (adult) (pediatric); E11.9 Type 2 diabetes mellitus without complications; E66.9 Obesity, unspecified; F41.9 Anxiety disorder, unspecified; E78.5 Hyperlipidemia, unspecified; Z68.34 Body mass index [BMI] 34.0-34.9, adult; Z79.01 Long term (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; Z79.84 Long term (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 oral hypoglycemic drugs; Z79.85 Long-term (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 injectable non-insulin antidiabetic drugs; Z79.1 Long term (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 non-steroidal anti-inflammatories (NSAID); Z79.899 Other long term (current) drug therapy
CPT/HCPCS: 36415; 71045; 80048; 82948; 83735; 83880; 84100; 84443; 84484; 85025; 90677; 93005; 93306; 96365; 96366; 96375; 96376; 99285; J0283; J1938; J3475